=== PATIENT | female | born 1960 | race Two or more races ===

== ENCOUNTER 2020-04-09 15:25 | Outpatient (REF) | payer OTHER, SELFPAY ==
--- NOTE | ~2020-04-09 | US_ITS ---
EXAMINATION: US RETROPERITONEAL LIMITED (RENAL ONLY) CLINICAL INFORMATION: Hematuria. COMPARISON: None TECHNIQUE: Real-time imaging of the kidneys. FINDINGS: RIGHT KIDNEY: 9.4 x 4.2 x 4.3 cm (SAG x AP x TRV). The kidney is normal in size, contour, and echogenicity. Renal cortical thickness is normal. No calculi or focal parenchymal lesions. No hydronephrosis. There are multiple echogenic small foci seen without twinkle shadow. There is mild pelvic fullness. LEFT KIDNEY: 10.5 x 4.7 x 4.7 cm (SAG x AP x TRV). The kidney is normal in size, contour, and echogenicity. Renal cortical thickness is normal. No calculi or focal parenchymal lesions. No hydronephrosis. There are multiple small echogenic foci with non twinkle shadow. US/US renal BI IMPRESSION: Bilateral multiple small echogenic non twinkle shadow with mild fullness of right kidney pelvis.
--- NOTE | ~2020-04-09 | US_ITS ---
EXAMINATION: ULTRASOUND PELVIS COMPLETE CLINICAL INFORMATION: Pelvic pain. Previous history of hysterectomy and tubal ligation. COMPARISON: Pelvis 05/07/2016 TECHNIQUE: Transabdominal and transvaginal ultrasound of the pelvis is performed. FINDINGS: The uterus is not visualized due to hysterectomy. Both ovaries are not seen. There is no pelvic mass or free fluid. US/US transvaginal IMPRESSION: 1. Uterus surgically removed. 2. Ovaries not seen. 3. There is no pelvic mass or free fluid.
--- NOTE | ~2020-04-09 | US_ITS ---
EXAMINATION: ULTRASOUND PELVIS COMPLETE CLINICAL INFORMATION: Pelvic pain. Previous history of hysterectomy and tubal ligation. COMPARISON: Pelvis 05/07/2016 TECHNIQUE: Transabdominal and transvaginal ultrasound of the pelvis is performed. FINDINGS: The uterus is not visualized due to hysterectomy. Both ovaries are not seen. There is no pelvic mass or free fluid. US/US pelvic complete IMPRESSION: 1. Uterus surgically removed. 2. Ovaries not seen. 3. There is no pelvic mass or free fluid.
== END 2020-04-09 15:26 | disposition home or self-care (01) ==
LOC: HO.US 15:25
PROVIDERS: Visit Provider Registered Nurse Community Health
DX: R10.2 Pelvic and perineal pain (principal); R31.9 Hematuria, unspecified
CPT/HCPCS: 76775; 76830; 76856

== ENCOUNTER → 2020-04-18 12:41 | Outpatient (BNV) | payer OTHER, SELFPAY | PROVIDERS: PCP Internal Medicine Geriatric Medicine; Visit Provider Internal Medicine Medical Oncology | DX: D05.12 Intraductal carcinoma in situ of left breast (principal) | CPT/HCPCS: 99213; 99214 ==

== ENCOUNTER 2020-07-11 12:50 | Outpatient (REF) | payer OTHER, SELFPAY ==
--- NOTE | ~2020-07-11 | MM_ITS ---
EXAMINATION: MM SCREENING DIGITAL BREAST TOMOSYNTHESIS, BILATERAL CLINICAL INFORMATION: Screening. Asymptomatic. Last mammography 2016. Reduction mammoplasty in 2013. Pathology showed focal left ALH. Tamoxifen x 5 yrs. Family history breast cancer, maternal aunt. The lifetime risk of breast cancer based on the Tyrer-Cuzick Model is 29%. COMPARISON: Outside mammography: 11/11/2016, 11/04/2015, 11/23/2014 ([facility]). TECHNIQUE: Digital breast tomosynthesis is performed in both the craniocaudal and mediolateral oblique views along with computer-aided detection (CAD). Synthesized 2D images are generated from the tomosynthesis. FINDINGS: There are scattered areas of fibroglandular density (ACR BI-RADS breast composition Category b). There is minor scarring consistent with the reduction mammoplasty. There is no interval mass or developing density or architectural abnormality in either breast. The axilla are unremarkable. Right breast has biopsy clip marker with stable adjacent calcifications anterior 5:00 to 6:00 position. There are a few punctate benign calcifications. New grouped calcifications position breast on CC view are dermal on both CC and MLO tomography. Left breast has new loosely grouped calcifications mid inner quadrant and new benign-appearing tightly grouped calcifications mid upper outer quadrant. These are likely benign changes related to the reduction mammoplasty and will be fully evaluated with additional magnification views. MM/MM tomosynthesis screening BI IMPRESSION: 1. Left: New benign-appearing calcifications mid upper outer and mid inner quadrants, likely related to sequela from the prior reduction mammoplasty. 2. Right: No significant changes from prior outside exam. ASSESSMENT: BI-RADS 0: Incomplete - Need Additional Imaging Evaluation RECOMMENDATION: 1. Additional views of the left breast (magnification CC inner and outer, magnification ML x2). 2. Radiology department staff will contact the patient for additional imaging. 3. The lifetime risk of breast cancer based on the Tyrer-Cuzick Model is 29%. Additional annual adjunct screening with breast MRI may be of benefit in women with a risk score of 20% or greater. This patient's information was entered into a reminder system with a target due date for their next mammogram.
== END 2020-07-11 12:51 | disposition home or self-care (01) ==
LOC: HO.MAMMO 12:50
PROVIDERS: Visit Provider Internal Medicine Medical Oncology
DX: Z12.31 Encounter for screening mammogram for malignant neoplasm of breast (principal)
CPT/HCPCS: 77063; 77067

== ENCOUNTER 2020-07-23 11:58 | Outpatient (REF) | payer OTHER, SELFPAY ==
--- NOTE | ~2020-07-23 | MM_ITS ---
EXAMINATION: MM DIAGNOSTIC DIGITAL MAMMOGRAPHY, LEFT CLINICAL INFORMATION: Recall from screening for new probable benign calcifications mid upper outer and mid inner left breast. Prior history reduction mammoplasty 2013. Pathology showed focal left ALH. Had Tamoxifen for 5 views. TC Score 29%. COMPARISON: Mammography: 07/11/2020, 11/11/2016 TECHNIQUE: Digital mammography is performed in the following views: Magnification left ML, magnification left CC x2. FINDINGS: There are scattered areas of fibroglandular density (ACR BI-RADS breast composition Category b). There are grouped coarse benign appearing calcifications posterior upper outer left breast and other grouped relatively coarse calcifications central left breast. They are benign-appearing and likely sequela from remote reduction mammoplasty. Management plan is for short interval six-month follow-up mammography to include magnification views. Results are discussed with the patient at time of visit, using an live hanger. MM/MM added views LT IMPRESSION: Probable benign grouped relatively coarse calcifications central and upper outer left breast, possibly sequela from prior surgery. ASSESSMENT: BI-RADS 3: Probably Benign RECOMMENDATION: Diagnostic left mammography in 6 months. This patient's information was entered into a reminder system with a target due date for their next mammogram.
== END 2020-07-23 11:59 | disposition home or self-care (01) ==
LOC: HO.MAMMO 11:58
PROVIDERS: Visit Provider Internal Medicine Medical Oncology
DX: R92.1 Mammographic calcification found on diagnostic imaging of breast (principal)
CPT/HCPCS: 77065

== ENCOUNTER 2021-01-26 12:44 | Outpatient (REF) | payer OTHER, SELFPAY ==
--- NOTE | ~2021-01-26 | MM_ITS ---
EXAMINATION: MM DIAGNOSTIC DIGITAL BREAST TOMOSYNTHESIS, LEFT CLINICAL INFORMATION: Short interval six-month follow-up probable benign calcifications posterior upper outer and central inner left breast, likely related to remote reduction mammoplasty. History focal left ALH noted on mammoplasty specimen, 2013. Tamoxifen for 5 years. TC score 29%. COMPARISON: Mammography: 07/23/2020, 07/11/2020 (BI-RADS 0) 11/11/2016 TECHNIQUE: Digital breast tomosynthesis is performed in both the craniocaudal and mediolateral oblique views along with computer-aided detection (CAD). Synthesized 2D images are generated from the tomosynthesis. Additional views are provided: Exaggerated left CC, magnification left CC x2, magnification left ML. FINDINGS: There are scattered areas of fibroglandular density (ACR BI-RADS breast composition Category b). The calcifications for follow-up posterior upper outer quadrant are tightly grouped and coarse and benign-appearing. The other calcifications for follow-up central and inner mid left breast are also stable from prior diagnostic exam and probably benign. Calcifications are likely related to sequela from remote reduction mammoplasty. There is no developing density or interval mass or architectural abnormality. Results are provided to the patient at time of visit by the technologist. MM/MM tomosynthesis diagnostic LT IMPRESSION: Probable benign left breast calcifications posterior upper outer quadrant and central inner breast are stable from prior diagnostic exam. ASSESSMENT: BI-RADS 3: Probably Benign RECOMMENDATION: Diagnostic mammography at time of annual bilateral exam, due in 6 months. This patient's information was entered into a reminder system with a target due date for their next mammogram.
== END 2021-01-26 12:45 | disposition home or self-care (01) ==
LOC: HO.MAMMO 12:44
PROVIDERS: PCP Internal Medicine Geriatric Medicine; Visit Provider Internal Medicine Medical Oncology
DX: R92.2 Inconclusive mammogram (principal)
CPT/HCPCS: 77061; 77065

== ENCOUNTER 2021-06-05 13:41 | Outpatient (REF) | payer OTHER, SELFPAY ==
--- NOTE | ~2021-06-05 | MM_ITS ---
EXAMINATION: BONE DENSITOMETRY CLINICAL INDICATION: Osteopenia. COMPARISON: Previous BD dated 08/19/2017 and baseline BD dated 08/19/2015. TECHNIQUE: Using a [employer] DXA System (software version: 13.1) manufactured by [employer], dual-energy x-ray absorptiometry was performed of the lumbar spine and left hip. The images are of good technical quality. Summary results are attached. FINDINGS: AP SPINE L1-L4: Current: BMD 1.025 g/cm2, Z-score -0.3, T-score -1.3, osteopenia, 2.7% decrease from previous, 1.1% increase from baseline (<5% change is not significant). Prior: BMD 1.053 g/cm2. Baseline: BMD 1.014 g/cm2. LEFT FEMUR, NECK: Current: BMD 0.806 g/cm2, Z-score -0.6, T-score -1.7, osteopenia. Prior: BMD 0.858 g/cm2. Baseline: BMD 0.922 g/cm2. LEFT FEMUR, TOTAL: Current: BMD 0.898 g/cm2, Z-score -0.1, T-score -0.9, normal, 8.5% decrease from previous, 9.1% decrease from baseline (<5% change is not significant). Prior: BMD 0.981 g/cm2. Baseline: BMD 0.988 g/cm2. IDENTIFIED RISK FACTORS: Menopause, hysterectomy. HISTORY OF FRACTURE: None listed. MEDICATIONS: None listed. MM/XR DEXA axial skeleton IMPRESSION: 1. DIAGNOSIS: Osteopenia based on the lowest T-score value of -1.7 in the femoral neck applying World Health Organization criteria. 2. 10-YEAR FRACTURE RISK PREDICTION, FRAX: Major osteoporotic fracture (clinical spine, forearm, hip or shoulder) 4.4%. Hip fracture 0.4%. 3. Treatment Recommendations: NOF guidelines recommend consideration for treatment in postmenopausal women and men age 50 and older presenting with the following: -A hip or vertebral (clinical or morphometric) fracture. -T-score less than or equal to -2.5 at the femoral neck or spine after appropriate evaluation to exclude secondary causes. -Low bone mass at the hip or spine and a 10-year fracture probability by FRAX of greater than or equal to 3% for hip fracture or greater than or equal to 20% for major osteoporotic fracture based on the [place] adapted WHO algorithm. 4. Other Recommendations: All treatment decisions require clinical judgment and consideration of individual patient factors, including patient preferences, comorbidities, previous drug use, risk factors not captured in the FRAX model (e.g. frailty, falls, vitamin D deficiency, increased bone turnover, interval significant decline in bone density) and possible under or overestimation of fracture risk by FRAX. Additional medical evaluation for secondary cause of low bone mineral density may be appropriate. FUTURE SCAN RECOMMENDATION: People with diagnosed cases of osteoporosis or at high risk for fracture should have regular bone mineral density tests. For patients eligible for Medicare, routine testing is allowed once every 2 years. The testing frequency can be increased to one year for patients who have rapidly progressing disease, those who are receiving or discontinuing medical therapy to restore bone mass, or have additional risk factors.
== END 2021-06-05 13:42 | disposition home or self-care (01) ==
LOC: HO.MAMMO 13:41
PROVIDERS: Visit Provider Internal Medicine Medical Oncology
DX: Z13.820 Encounter for screening for osteoporosis (principal); M85.80 Other specified disorders of bone density and structure, unspecified site; Z78.0 Asymptomatic menopausal state
CPT/HCPCS: 77080

== ENCOUNTER 2021-06-12 14:24 | Outpatient (REF) | payer OTHER, SELFPAY ==
--- NOTE | ~2021-06-12 | XR_ITS ---
EXAMINATION: XR KNEE, RIGHT CLINICAL INFORMATION: Pain in the right knee. COMPARISON: No similar priors. TECHNIQUE: Four views of the right knee. FINDINGS: No acute fractures or malalignment. Moderate degenerative osteoarthritis of the medial and patellofemoral compartments with joint space narrowing, subcortical sclerosis and osteophytes. No chondrocalcinosis or erosions. Small joint effusion. XR/XR knee RT 2V IMPRESSION: No acute fractures or malalignment. Moderate degenerative osteoarthritis of the medial and patellofemoral compartments. Small joint effusion.
--- NOTE | ~2021-06-12 | XR_ITS ---
EXAMINATION: XR FOOT, LEFT CLINICAL INFORMATION: Pain in the left foot. COMPARISON: None. TECHNIQUE: AP, lateral, and oblique views of the left foot. FINDINGS: Chronic appearing deformity in the first metatarsal bone. No acutely displaced fractures. Joint alignment is anatomic. Mild to moderate degenerative osteoarthritis of the first MTP joint. Diffuse nonspecific soft tissue swelling. XR/XR foot LT min 3V IMPRESSION: Chronic appearing deformity in the first metatarsal bone, correlate for point tenderness and with history of trauma or surgery. Mild to moderate degenerative osteoarthritis of the first MTP joint. Nonspecific diffuse soft tissue swelling.
== END 2021-06-12 14:25 | disposition home or self-care (01) ==
LOC: HO.XRAY 14:24
PROVIDERS: PCP Internal Medicine Geriatric Medicine; Visit Provider Internal Medicine Geriatric Medicine
DX: M25.561 Pain in right knee (principal); M79.672 Pain in left foot
CPT/HCPCS: 73560; 73630

== ENCOUNTER 2021-07-07 10:19 | Outpatient (REF) | payer OTHER, SELFPAY ==
--- NOTE | ~2021-07-07 | MM_ITS ---
EXAMINATION: MM DIAGNOSTIC DIGITAL BREAST TOMOSYNTHESIS, BILATERAL CLINICAL INFORMATION: Due for yearly. Follow-up probable benign calcifications central inner and upper outer left breast, likely related to remote reduction mammoplasty. History focal left ALH noted on mammoplasty specimen, 2013. Tamoxifen for 5 years. TC score 6%. COMPARISON: Mammography: 01/26/2021, 07/23/2020, 07/11/2020 (BI-RADS 0); outside mammography 11/11/2016 ([facility]). TECHNIQUE: Digital breast tomosynthesis is performed in both the craniocaudal and mediolateral oblique views along with computer-aided detection (CAD). Synthesized 2D images are generated from the tomosynthesis. Additional magnification views left breast are obtained in the CC x2 and ML x2 views. FINDINGS: There are scattered areas of fibroglandular density (ACR BI-RADS breast composition Category b). Parenchymal pattern is similar to prior exams and there is no developing density or interval mass or architectural abnormality. Right breast has biopsy clip marker central lower breast. There are some stable benign-appearing grouped calcifications central anterior lower right breast as well as more posterior lower right breast calcifications which are dermal. Left breast calcifications for follow-up central inner and posterior upper outer quadrant are without significant change and likely related to sequela from prior remote reduction mammoplasty. Left breast calcifications will be reassessed again at next bilateral annual mammography to conclude long-term surveillance, due in 12 months. Results are provided to the patient at time of visit by the technologist. MM/MM tomosynthesis diagnostic BI IMPRESSION: -No significant changes from prior exam. -Left breast calcifications for follow-up stable, likely sequela from prior reduction mammoplasty. ASSESSMENT: BI-RADS 3: Probably Benign RECOMMENDATION: Diagnostic mammography at time of next annual exam, due in 12 months. This patient's information was entered into a reminder system with a target due date for their next mammogram.
== END 2021-07-07 10:20 | disposition home or self-care (01) ==
LOC: HO.MAMMO 10:19
PROVIDERS: Visit Provider Internal Medicine Geriatric Medicine
DX: R92.1 Mammographic calcification found on diagnostic imaging of breast (principal)
CPT/HCPCS: 77062; 77066

== ENCOUNTER 2022-03-23 12:57 | Outpatient (REF) | payer OTHER, SELFPAY ==
--- NOTE | ~2022-03-23 | XR_ITS ---
EXAMINATION: XR RIBS, LEFT CLINICAL INFORMATION: Anterior left-sided chest pain after fall COMPARISON: 12/11/1959 TECHNIQUE: 3 views of the left ribs were obtained. PA view of the chest. FINDINGS: Lungs are clear. No consolidation, pneumothorax, or pleural effusion. The cardiomediastinal silhouette and pulmonary vasculature are normal. Right upper quadrant surgical clips. Osseous structures are unremarkable. Ribs are intact. No fractures are identified. XR/XR ribs LT min 3V w CXR1V IMPRESSION: Clear lungs. No focal rib abnormality identified.
== END 2022-03-23 12:58 | disposition home or self-care (01) ==
LOC: HO.XRAY 12:57
PROVIDERS: PCP Internal Medicine Geriatric Medicine; Visit Provider Internal Medicine Geriatric Medicine
DX: R07.89 Other chest pain (principal)
CPT/HCPCS: 71101

== ENCOUNTER 2022-05-19 16:37 | Outpatient (REF) | payer OTHER, SELFPAY ==
--- NOTE | ~2022-05-19 | XR_ITS ---
EXAMINATION: XR CHEST CLINICAL INFORMATION: Cough. COMPARISON: Chest radiographs, most recently 03/23/2022. TECHNIQUE: Frontal and lateral views of the chest were obtained. FINDINGS: The heart, great vessels, pulmonary vasculature and mediastinum are normal. The lungs show no focal infiltrate, effusion or pneumothorax. There is mild elevation of the right hemidiaphragm. There is no acute osseous abnormality. Upper abdominal surgical clips are noted. XR/XR chest 2V IMPRESSION: No active cardiopulmonary disease.
== END 2022-05-19 16:38 | disposition home or self-care (01) ==
LOC: HO.XRAY 16:37
PROVIDERS: Absent Provider Internal Medicine Geriatric Medicine; PCP Internal Medicine Geriatric Medicine; Visit Provider Emergency Medicine
DX: J45.21 Mild intermittent asthma with (acute) exacerbation (principal)
CPT/HCPCS: 71046

== ENCOUNTER 2022-06-11 13:15 | Outpatient (REF) | payer OTHER, SELFPAY ==
--- NOTE | ~2022-06-11 | US_ITS ---
EXAMINATION: US VENOUS ULTRASOUND WITH DOPPLER LOWER EXTREMITY, RIGHT CLINICAL INFORMATION: Right lower extremity pain and swelling COMPARISON: None available. TECHNIQUE: Ultrasound of the deep veins is performed from the hip to the calf with compression sonography and color and pulse Doppler assessment. Spectral analysis with color-flow imaging is performed. FINDINGS: There is normal venous compression and respiratory variation and augmented flow. The visualized common femoral vein, superficial femoral vein, profunda femoral vein, popliteal vein, and the trifurcation region shows no evidence of deep venous thrombosis. There is a small 1.9 x 0.7 x 1.4 cm popliteal fossa hypoechoic region consistent with small up to fossa cyst. US/US venous duplex LE RT IMPRESSION: No acute DVT demonstrated in the right lower extremity. Small popliteal fossa cyst.
== END 2022-06-11 13:16 | disposition home or self-care (01) ==
LOC: HO.US 13:15
PROVIDERS: PCP Internal Medicine Geriatric Medicine; Visit Provider Emergency Medicine
DX: M79.604 Pain in right leg (principal); M79.89 Other specified soft tissue disorders
CPT/HCPCS: 93971

== ENCOUNTER 2022-06-25 11:49 | Outpatient (REF) | payer OTHER, SELFPAY ==
--- NOTE | ~2022-06-25 | MM_ITS ---
EXAMINATION: MM DIAGNOSTIC DIGITAL BREAST TOMOSYNTHESIS, BILATERAL US TARGETED BREAST, LEFT CLINICAL INFORMATION: Status post breast reduction surgery. Follow up calcifications. Lump 6 o'clock position left breast after falling on breast. The lifetime risk of breast cancer based on the Tyrer-Cuzick Model is 6.8%. COMPARISON: Mammography: 07/07/2021 and studies dating back to 11/23/2014. TECHNIQUE: Digital breast tomosynthesis is performed in both the craniocaudal and mediolateral oblique views along with computer-aided detection (CAD). Synthesized 2D images are generated from the tomosynthesis. Additional spot magnification views of the left breast in craniocaudal and 90-degree mediolateral views performed. Targeted left breast ultrasound. FINDINGS: There are scattered areas of fibroglandular density (ACR BI-RADS breast composition Category b). There are no new significant masses, abnormal calcifications, or other abnormalities. There is stability of bilateral calcifications. Targeted left breast ultrasound to region of patient's pain/palpable area did not demonstrate any abnormal cystic or solid masses. No region of abnormal distal sound shadowing was appreciated. Results are discussed with the patient at time of visit. MM/MM tomosynthesis diagnostic BI IMPRESSION: No mammographic or ultrasound evidence of malignancy. ASSESSMENT: BI-RADS 1: Negative RECOMMENDATION: 1. Patient should be managed based on the clinical impression. Decision to proceed with biopsy should be based on clinical grounds and degree of clinical concern. 2. Otherwise, routine annual screening mammography. This patient's information was entered into a reminder system with a target due date for their next mammogram.
== END 2022-06-25 11:50 | disposition home or self-care (01) ==
LOC: HO.MAMMO 11:49
PROVIDERS: Visit Provider Internal Medicine Geriatric Medicine
DX: N63.25 Unspecified lump in the left breast, overlapping quadrants (principal)
CPT/HCPCS: 76642; 77062; 77066

== ENCOUNTER → 2022-07-13 09:52 | Outpatient (BNVA) | payer OTHER, SELFPAY | PROVIDERS: PCP Internal Medicine Geriatric Medicine; Referring Provider Internal Medicine Medical Oncology; Visit Provider Surgery | DX: N60.99 Unspecified benign mammary dysplasia of unspecified breast (principal); N63.20 Unspecified lump in the left breast, unspecified quadrant | CPT/HCPCS: 99202 ==

== ENCOUNTER → 2022-07-20 08:26 | Outpatient (BNVA) | payer OTHER, SELFPAY | PROVIDERS: PCP Internal Medicine Geriatric Medicine; Visit Provider Advanced Practice Midwife | DX: Z01.419 Encounter for gynecological examination (general) (routine) without abnormal findings (principal); R35.0 Frequency of micturition; N95.9 Unspecified menopausal and perimenopausal disorder; E11.9 Type 2 diabetes mellitus without complications | CPT/HCPCS: 81003 ==

== ENCOUNTER → 2022-07-28 09:46 | Outpatient (BNVA) | payer OTHER, SELFPAY | PROVIDERS: PCP Internal Medicine Geriatric Medicine; Visit Provider Surgery Vascular Surgery | DX: I83.12 Varicose veins of left lower extremity with inflammation (principal) | CPT/HCPCS: 99202 ==

== ENCOUNTER 2022-12-30 10:38 | Outpatient (AMB) | payer OTHER, SELFPAY ==
--- NOTE | 2022-12-30 10:43 | MHC.OFFVIS ---
Intake Intake Visit Reasons: 3 month vein check Intake Note: PT her for 3 month vein check she states she had surgery on her ankle on 09/22/22 and now shes ready to get workup for VV. She says she still gets pain and swelling in both LE especially after walking or been on her feet Assessment Technician Required: Yes Assessment Technician Name: demetrius jacobs Information Interpreted: clinical only Allergies tuberculin, purified protein deriva [TB TEST] Allergy (Severe, Verified 12/30/22 10:45) ANGIOEDEMA liquid of tb test Allergy (Severe, Uncoded 07/28/22 09:58) Rash HPI 3 month vein check HPI Details Very complex 62-year-old female presents for follow-up regarding swelling and painful varicosities. She notes that it is more so on the left leg. She has undergone left foot podiatric intervention at [facility]. It appears that she has hardware placed there as well. It has been a source of persistent swelling and discomfort for her. She now presents for follow-up regarding her varicosities. PFSH Medical History Frequency of urination Hernia Depression Anxiety Heart disease Diabetes Asthma Fibromyalgia Atypical lobular hyperplasia (ALH) of breast Surgical History Hx of cardiac cath H/O rectal polypectomy History of carpal tunnel surgery Hx of toe surgery Hx of right knee surgery Hx of tonsillectomy History of appendectomy Hx of cholecystectomy H/O: hysterectomy Hx of section Family History Brother Heart disease Asthma Mother Family history of esophageal cancer Hypertension Asthma Lung cancer Father History of prostate cancer Asthma Paternal Aunt No problems noted. Paternal Grandfather Liver cancer Colon cancer Family/Other Stomach cancer Maternal Aunt Breast cancer Social History Household Members: None Housing: Apartment Are you a primary body care manager to a significant other at home: No Do you presently have visiting nurse or other home services: No Alcohol intake: former Patient Tobacco Use Status: Never used Tobacco service: No Current occupational status: disabled Female Reproductive History Menstrual Age of Menarche: 15 Review of Systems Const Reports as per HPI ENT Reports no additional complaints Card Denies chest pain, Denies chest pain at rest and Denies chest pain with activity Resp Denies chest congestion and Denies cough GI Reports no additional complaints Musc Details: pain over varicosities, aching of lower extremities, swelling, cramping, heaviness and tiredness, itching Denies abnormal gait Skin/Breast Reports pruritus and Denies wounds Neuro Reports no additional complaints and Denies abnormal gait Psych Denies no additional complaints Physical Exam Const General: cooperative, healthy appearing and comfortable Orientation/consciousness: oriented to person, oriented to place and oriented to time Neck Carotids: no bruits Chest Chest palpation & inspection: normal inspection of the chest and normal palpation of entire chest wall Resp Effort & Inspection: normal respiratory effort and able to speak in complete sentences Cardio Rate: regular rate Heart sounds: S1 normal heart sound present and S2 normal heart sound present Peripheral pulses: Peripheral pulses 2+ throughout GI Inspection: Yes normal to inspection Skin Other: +2 edema, General skin exam: dry skin Neuro General: oriented to person, oriented to place and oriented to time Extrem General: Yes edema Right lower extremity: full ROM, normal capillary refill and edema Left lower extremity: full ROM, normal capillary refill and edema Psych Mental Status: mental status grossly normal Assessment & Plan Assessment & Plan (1) Varicose veins of left lower extremity with inflammation: Code(s): I83.12 - Varicose veins of left lower extremity with inflammation Plan: In short patient has persistent swelling of the left lower extremity. I do believe a lot of this has to do with her left ankle and postoperative discomfort. At the current time I would like to have her manage this as conservatively as possible and would like her foot to heal before we even consider any venous intervention. She is already quite immobile and performing of venous intervention may put her at a higher risk for DVT. She will follow up with us in approximately 6 months time. At that time she will have completed her physical therapy as well. We did discuss continued conservative measures including compression elevation and exercise. Thank you for allowing us to assist in her care. If there are any questions or concerns please do not hesitate to contact us. Coding Level of Care Code Est Pt Level 4 (40914) Diagnoses Varicose veins of left lower extremity with inflammation I83.12
== END 2022-12-30 11:18 | disposition home or self-care (01) ==
PROVIDERS: Visit Provider Surgery Vascular Surgery
DX: I83.12 Varicose veins of left lower extremity with inflammation (principal)
CPT/HCPCS: 99214

== ENCOUNTER → 2022-12-30 10:38 | Outpatient (BNVA) | payer OTHER, SELFPAY | PROVIDERS: Visit Provider Surgery Vascular Surgery | DX: I83.12 Varicose veins of left lower extremity with inflammation (principal) | CPT/HCPCS: 99212 ==

== ENCOUNTER 2023-02-08 08:53 | Outpatient (AMB) | payer OTHER, SELFPAY ==
--- NOTE | 2023-02-08 09:24 | MHC.OFFVIS ---
Intake Vital Signs 02/08/23 09:38 Height 5 ft Weight 153 lb 2 oz BMI 29.9 BP 131/80 Blood Pressure Location Lt brachial Position Sitting Pulse 68 Intake Visit Reasons: six month follow-up breast exam Intake Note: Patient is seen in office for 6 month follow up visit, breast exam. Patient c/o: denies any concerns regarding the breast Environmental Compliance Technician Required: Yes Environmental Compliance Technician Language: Software Support Representative Name: Viky JAUREGUI Information Interpreted: non-clinical & clinical Mammography Technician: Mammography Technician Present Accompanied by: Self / Same As Patient Allergies tuberculin, purified protein deriva [TB TEST] Allergy (Severe, Verified 02/08/23 09:25) ANGIOEDEMA liquid of tb test Allergy (Severe, Uncoded 02/08/23 09:25) Rash Medication List - Last Reconciled 02/08/23 by Shabbir Hill MD albuterol sulfate 90 mcg/actuation 2 puffs PO Q4-6H PRN amlodipine 5 mg PO DAILY aspirin 81 mg PO DAILY atorvastatin 1 tab PO DAILY diclofenac sodium 1% 1 ea topical DAILY dulaglutide (Trulicity) 0.75 mg subcut QWEEK duloxetine 30 mg PO DAILY fluticasone propionate 50 mcg/actuation 2 sprays intranasal DAILY fluticasone propionate 220 mcg/actuation (Flovent HFA) 2 puffs inhalation BID gabapentin 100 mg PO TID hydroxyzine pamoate 1 cap PO BID ketoconazole 2% 1 appl topical DAILY lamotrigine 25 mg PO DAILY lamotrigine ER 25 mg PO DAILY levothyroxine 1 tab PO DAILY levothyroxine 88 mcg PO DAILY loratadine 1 tab PO DAILY metformin 1 tab PO QAM metoprolol tartrate 1 tab PO BID montelukast (Singulair) 1 tab PO BEDTIME omega 7-ltk-uxx-fish oil 300-1,000 mg 1 cap PO DAILY omeprazole 1 cap PO DAILY trazodone 50 mg PO BEDTIME zaleplon 10 mg PO BEDTIME PRN HPI HPI Comments History of Present Illness Details 62-year-old female patient with a prior history of atypical lobular hyperplasia presenting for evaluation of a possible left breast mass. She reports undergoing bilateral breast reduction in 2012 complicated by an open wound on the right side soon after surgery. After the surgery she was diagnosed with atypical lobular hyperplasia and subsequently started on tamoxifen for 5 years. She notes pain in the bilateral breasts waxes and wanes in severity. Her most recent mammogram performed on 06/25/2022 revealed no mammographic or ultrasound evidence of malignancy (BI-RADS 1). Her calculated Tyrer-Cuzick remaining lifetime risk of breast cancer was calculated at 6.8%. Her family history is significant for a maternal aunt with breast cancer. PFSH Medical History Frequency of urination Hernia Depression Anxiety Heart disease Diabetes Asthma Fibromyalgia Atypical lobular hyperplasia (ALH) of breast Surgical History Hx of cardiac cath H/O rectal polypectomy History of carpal tunnel surgery Hx of toe surgery Hx of right knee surgery Hx of tonsillectomy History of appendectomy Hx of cholecystectomy H/O: hysterectomy Hx of section Family History Brother Heart disease Asthma Mother Family history of esophageal cancer Hypertension Asthma Lung cancer Father History of prostate cancer Asthma Paternal Aunt No problems noted. Paternal Grandfather Liver cancer Colon cancer Family/Other Stomach cancer Maternal Aunt Breast cancer Social History Household Members: None Housing: Apartment Are you a primary rn homecare to a significant other at home: No Do you presently have visiting nurse or other home services: No Alcohol intake: former Patient Tobacco Use Status: Never used Tobacco service: No Current occupational status: disabled Female Reproductive History Menstrual Age of Menarche: 15 Review of Systems Const All systems reviewed & are unremarkable except as noted in HPI and below Denies chills, Denies fever(s), Denies headache(s), Denies poor appetite and Denies weakness ENT Denies headache(s) Card Denies chest pain, Denies irregular heart rhythm, Denies palpitations and Denies dyspnea Resp Denies cough, Denies excessive phlegm production and Denies dyspnea GI Denies abdominal pain, Denies bloating, Denies change in bowel habits, Denies constipation, Denies heartburn, Denies diarrhea, Denies nausea and Denies vomiting Denies urinary frequency and Denies nipple discharge Musc Denies back pain, Denies muscle weakness and Denies numbness Skin/Breast Reports breast swelling, Reports breast pain, Reports breast mass, Denies changing lesions, Denies nipple discharge, Denies erythema and Denies unusual bruising Neuro Denies headache(s), Denies numbness, Denies paresthesias and Denies weakness Psych Denies anxiety and Denies depression Endo Denies palpitations Buster/Lymph Denies lymphadenopathy Physical Exam Vital Signs: Last Vital Signs Pulse 68 02/08/23 09:38 BP 131/80 02/08/23 09:38 BMI result Body Mass Index 29.9 Const General: cooperative and no acute distress Nutritional Appearance: well nourished Orientation/consciousness: patient oriented x3 Limitations: no limitations HEENT Head: Yes normocephalic and Yes atraumatic Ears: hearing grossly normal bilaterally Chest Other: Bilateral breast reduction incisions noted, wounds are clean, dry and intact. Left breast: No skin change, no nipple retraction, no nipple discharge, no palpable mass, no enlarged lymph nodes. No definite palpable mass noted in the 6 o'clock position. There is tenderness to palpation of the chest wall suggestive of a chest wall contusion however no discrete masses appreciated. Right breast: No skin change, no nipple retraction, no nipple discharge, no palpable mass, no enlarged lymph nodes Resp Effort & Inspection: normal respiratory effort, no audible wheezes, no cough and no respiratory distress Cardio Jugular venous distension: no JVD GI Inspection: Yes normal to inspection Skin Other: Warm, dry, no rash Neuro General: patient oriented x3 Extrem General: Yes no clubbing, cyanosis or edema Assessment & Plan Assessment & Plan (1) Atypical lobular hyperplasia (ALH) of breast: Code(s): N60.99 - Unspecified benign mammary dysplasia of unspecified breast Plan 62-year-old female patient with a prior history of atypical lobular hyperplasia and prior history of bilateral breast reduction returning for high risk breast examination. She feels well and denies any ongoing breast symptoms other than pain bilaterally. Examination today reveals no suspicious findings in either breast and well-healed reduction incisions. She will be due for mammogram in June 2023 and should follow up in 6 months for routine breast examination for her atypical lobular hyperplasia. She is welcome to call sooner for any new concerns. Coding Level of Care Code Est Pt Level 3 (36316) Diagnoses Atypical lobular hyperplasia (ALH) of breast N60.99
[2023-02-08 09:38] VITALS: BP 131/80; PULSE 68; BMI 29.9
== END 2023-02-08 09:55 | disposition home or self-care (01) ==
PROVIDERS: PCP Internal Medicine Geriatric Medicine; Visit Provider Surgery
DX: N60.92 Unspecified benign mammary dysplasia of left breast (principal)
CPT/HCPCS: 99213

== ENCOUNTER → 2023-02-08 08:53 | Outpatient (BNVA) | payer OTHER, SELFPAY | PROVIDERS: PCP Internal Medicine Geriatric Medicine; Visit Provider Surgery | DX: N60.99 Unspecified benign mammary dysplasia of unspecified breast (principal) | CPT/HCPCS: 99212 ==

== ENCOUNTER 2023-03-23 12:56 | Outpatient (REF) | payer OTHER, SELFPAY ==
--- NOTE | ~2023-03-23 | XR_ITS ---
EXAMINATION: XR CHEST CLINICAL INFORMATION: Cough and fever for 4 days COMPARISON: None available. TECHNIQUE: 2 views of the chest were obtained. FINDINGS: vascularity. LUNGS: Lungs are clear. No pneumothorax is seen. BONES: Bony skeleton is intact. XR/XR chest 2V IMPRESSION: Normal chest x-ray.
== END 2023-03-23 12:57 | disposition home or self-care (01) ==
LOC: HO.HHCX 12:56
PROVIDERS: Visit Provider Emergency Medicine
DX: R05.9 Cough, unspecified (principal)
CPT/HCPCS: 71046

== ENCOUNTER 2023-06-07 11:32 | Outpatient (REF) | payer OTHER, SELFPAY ==
[2023-06-07 13:50] LABS: Estimated Average Glucose 134 mg/dL; Hemoglobin A1c % 6.3 % (<6.0)
[2023-06-07 14:05] LABS: Alanine Aminotransferase 32 U/L (0-31); Albumin Level 4.1 g/dL (3.5-5.0); Alkaline Phosphatase 104 U/L (39-117); Anion Gap 13 (12-20); Aspartate Amino Transferase 31 U/L (5-31); Bilirubin Total 0.4 mg/dL (0.0-1.0); Blood Urea Nitrogen 13 mg/dL (9-16); C Reactive Protein 0.12 mg/dL (< or = 0.50); Calcium 9.8 mg/dL (8.4-10.2); Carbon Dioxide 27 mmol/L (22-29); Chloride 108 mmol/L (96-108); Cholesterol 225 mg/dL (<200); Estimated Glomerular Filt Rate > 60; Glucose Random 153 mg/dL (60-115); HDL Cholesterol 59 mg/dL (>40); LDL Cholesterol Calculated 141 mg/dL (<100); Sodium 144 mmol/L (135-145); Total Protein 7.2 g/dL (6.5-8.0); Triglycerides 125 mg/dL (<150)
[2023-06-07 14:09] LABS: TSH reflex Free T4 0.01 uIU/mL (0.32-4.0)
[2023-06-07 14:20] LABS: Erythrocyte Sedimentation Rate 6 MM/HR (0-20)
[2023-06-07 15:23] LABS: Free T4 (Free Thyroxine) 1.28 ng/dL (0.71-1.85)
== END 2023-06-07 11:33 | disposition home or self-care (01) ==
LOC: HO.HHCL 11:32
PROVIDERS: Visit Provider Nurse Practitioner Family
DX: E11.9 Type 2 diabetes mellitus without complications (principal); E03.9 Hypothyroidism, unspecified; M54.50 Low back pain, unspecified; K62.5 Hemorrhage of anus and rectum
CPT/HCPCS: 36415; 80053; 80061; 83036; 84439; 84443; 85652; 86140

== ENCOUNTER 2023-06-28 11:54 | Outpatient (REF) | payer OTHER, SELFPAY ==
[2023-06-28 17:03] LABS: TSH reflex Free T4 0.23 uIU/mL (0.32-4.0)
[2023-06-28 19:21] LABS: Free T4 (Free Thyroxine) 0.96 ng/dL (0.71-1.85)
== END 2023-06-28 11:55 | disposition home or self-care (01) ==
LOC: HO.HHCL 11:54
PROVIDERS: Visit Provider Nurse Practitioner Family
DX: K62.5 Hemorrhage of anus and rectum (principal)
CPT/HCPCS: 36415; 84439; 84443

== ENCOUNTER 2023-06-30 12:33 | Outpatient (AMB) | payer OTHER, SELFPAY ==
--- NOTE | 2023-06-30 12:55 | A.OFFVIS_ITS ---
Vital Signs 06/30/23 12:58 Height 5 ft Weight 150 lb BMI 29.3 Intake Visit Reasons: 6 month vein check Intake Note: 6 mo vein check for VV w/ swelling s/p ankle surgery at [facility] 09/22/22, pt is walking much better but has some small VV on both legs Accompanied by: Self / Same As Patient Allergies tuberculin, purified protein deriva [TB TEST] Allergy (Severe, Verified 06/30/23 13:02) ANGIOEDEMA liquid of tb test Allergy (Severe, Uncoded 06/30/23 13:02) Rash HPI HPI 6 month vein check: Details: Very pleasant 63-year-old female presents for follow-up regarding lower extremity swelling she appears to be doing significantly better as she has had left foot surgery by Podiatry. She appears to have only occasional mild swelling. At the current time it is not a source of pain or discomfort for her. PFSH Medical History Frequency of urination Hernia Depression Anxiety Heart disease Diabetes Asthma Fibromyalgia Atypical lobular hyperplasia (ALH) of breast Surgical History Hx of cardiac cath H/O rectal polypectomy History of carpal tunnel surgery Hx of toe surgery Hx of right knee surgery Hx of tonsillectomy History of appendectomy Hx of cholecystectomy H/O: hysterectomy Hx of section Family History Brother Heart disease Asthma Mother Family history of esophageal cancer Hypertension Asthma Lung cancer Father History of prostate cancer Asthma Paternal Aunt No problems noted. Paternal Grandfather Liver cancer Colon cancer Family/Other Stomach cancer Maternal Aunt Breast cancer Social History Household Members: None Housing: Apartment Are you a primary critical care paramedic to a significant other at home: No Do you presently have visiting nurse or other home services: No Alcohol intake: former Patient Tobacco Use Status: Never used Tobacco service: No Current occupational status: disabled Female Reproductive History Menstrual Age of Menarche: 15 Review of Systems Const All systems reviewed & are unremarkable except as noted in HPI and below Reports no additional complaints ENT Reports Normal hearing present Card Denies chest pain, Denies chest pain at rest, Denies chest pain with activity and Denies pedal edema Resp Denies cough GI Denies abdominal pain Musc Denies abnormal gait, Denies muscle cramps and Denies radiating pain into limb Skin/Breast Denies skin ulcer and Denies wounds Neuro Reports Normal hearing present and Denies abnormal gait Psych Reports no additional complaints Physical Exam Vital Signs: BMI result Body Mass Index 29.3 Const General: cooperative, healthy appearing and comfortable Orientation/consciousness: oriented to person, oriented to place and oriented to time HEENT Head: Yes normal to inspection Neck Neck: Yes normal visual inspection Carotids: no bruits Chest Chest palpation & inspection: normal inspection of the chest Resp Effort & Inspection: normal respiratory effort and able to speak in complete sentences Auscultation: clear to auscultation bilaterally, no crackles, no rales, no rhonchi and no wheezes Cardio Rate: regular rate Rhythm: regular rhythm Heart sounds: S1 normal heart sound present and S2 normal heart sound present Bruits: no carotid bruits Peripheral pulses: Peripheral pulses 2+ throughout GI Inspection: Yes normal to inspection Skin Wounds: no wounds Hair: normal Neuro General: oriented to person, oriented to place and oriented to time Cranial nerves: Yes CN's II-XII intact bilaterally and Yes Normal hearing present Cognition (Neuro): normal cognition Motor exam (neuro): 5/5 motor strength present throughout Extrem Other: venous exam: +1 edema General: No clubbing, No cyanosis and No edema Psych Appearance: grossly normal Mental Status: mental status grossly normal Speech and movement: Normal speech and movement present Assessment & Plan Assessment & Plan (1) Varicose veins of left lower extremity with inflammation: Code(s): I83.12 - Varicose veins of left lower extremity with inflammation Category: Medical Plan: In short it appears that her swelling has significantly improved since her podiatric surgery. At the current time would only manage this conservatively with compression elevation and exercise. The patient is agreeable. Should it worsen or become an issue for her in the future would be happy to see her back at that time. We can schedule her in the future for venous insufficiency testing if she becomes symptomatic. Thank you for allowing us to assist in her care. If there are any questions or concerns please do not hesitate to contact us. Coding Level of Care Code Est Pt Level 3 (11373) Diagnoses Varicose veins of left lower extremity with inflammation I83.12
[2023-06-30 12:58] VITALS: BMI 29.3
== END 2023-06-30 13:30 | disposition home or self-care (01) ==
PROVIDERS: PCP Internal Medicine Geriatric Medicine; Visit Provider Surgery Vascular Surgery
DX: I83.12 Varicose veins of left lower extremity with inflammation (principal)
CPT/HCPCS: 99213

== ENCOUNTER → 2023-06-30 12:33 | Outpatient (BNVA) | payer OTHER, SELFPAY | PROVIDERS: PCP Internal Medicine Geriatric Medicine; Visit Provider Surgery Vascular Surgery | DX: I83.12 Varicose veins of left lower extremity with inflammation (principal) | CPT/HCPCS: 99212 ==

== ENCOUNTER 2023-07-05 13:27 | Outpatient (REF) | payer OTHER, SELFPAY ==
--- NOTE | ~2023-07-05 | MM_ITS ---
EXAMINATION: MM SCREENING DIGITAL BREAST TOMOSYNTHESIS, BILATERAL CLINICAL INFORMATION: Screening. Asymptomatic. The patient is status post bilateral breast reduction. COMPARISON: Mammography: This study is compared with prior exams dating back to 2017. TECHNIQUE: Digital breast tomosynthesis is performed in both the craniocaudal and mediolateral oblique views along with computer-aided detection (CAD). Synthesized 2D images are generated from the tomosynthesis. FINDINGS: There are scattered areas of fibroglandular density (ACR BI-RADS breast composition Category b). There are no significant masses, abnormal calcifications, or other abnormalities. There is a tissue marker present in the right breast from prior benign percutaneous biopsy. There are few, bilateral benign calcifications. Post reduction changes are present in each breast. MM/MM tomosynthesis screening BI IMPRESSION: No mammographic evidence of malignancy. ASSESSMENT: BI-RADS BI-RADS 2 - Benign Findings RECOMMENDATION: Routine annual mammography screening. 1 year F/U This examination should not preclude the clinical evaluation of a suspicious palpable abnormality. This patient's information was entered into a reminder system with a target due date for their next mammogram.
--- NOTE | ~2023-07-05 | MM_ITS ---
EXAMINATION: BONE DENSITOMETRY CLINICAL INDICATION: Other specified disorders of bone density and structure. COMPARISON: Previous BD dated 06/05/2021 and baseline BD dated 08/19/2015. TECHNIQUE: Using a [employer] DXA System (software version: 13.1) manufactured by [employer], dual-energy x-ray absorptiometry was performed of the lumbar spine and left hip. The images are of good technical quality. Summary results are attached. FINDINGS: LEFT FEMUR, NECK: Current: BMD 0.760 g/cm2, Z-score -0.7, T-score -2.0, osteopenia. Prior: BMD 0.806 g/cm2. Baseline: BMD 0.922 g/cm2. LEFT FEMUR, TOTAL: Current: BMD 0.833 g/cm2, Z-score -0.4, T-score -1.4, osteopenia, 7.2% decrease from previous, 15.7% decrease from baseline (<5% change is not significant). Prior: BMD 0.898 g/cm2. Baseline: BMD 0.988 g/cm2. AP SPINE L1-L4: Current: BMD 0.996 g/cm2, Z-score -0.2, T-score -1.5, osteopenia, 2.8% decrease from previous, 1.8% decrease from baseline (<5% change is not significant). Prior: BMD 1.025 g/cm2. Baseline: BMD 1.014 g/cm2. IDENTIFIED RISK FACTORS: Menopause, hysterectomy. HISTORY OF FRACTURE: None listed. MEDICATIONS: None listed. MM/XR DEXA axial skeleton IMPRESSION: 1. DIAGNOSIS: Osteopenia based on the lowest T-score value of -2.0 in the femoral neck applying World Health Organization criteria. 2. 10-YEAR FRACTURE RISK PREDICTION, FRAX: Major osteoporotic fracture (clinical spine, forearm, hip or shoulder) 5.4%. Hip fracture 0.7%. 3. Treatment Recommendations: NOF guidelines recommend consideration for treatment in postmenopausal women and men age 50 and older presenting with the following: -A hip or vertebral (clinical or morphometric) fracture. -T-score less than or equal to -2.5 at the femoral neck or spine after appropriate evaluation to exclude secondary causes. -Low bone mass at the hip or spine and a 10-year fracture probability by FRAX of greater than or equal to 3% for hip fracture or greater than or equal to 20% for major osteoporotic fracture based on the [place] adapted WHO algorithm. 4. Other Recommendations: All treatment decisions require clinical judgment and consideration of individual patient factors, including patient preferences, comorbidities, previous drug use, risk factors not captured in the FRAX model (e.g. frailty, falls, vitamin D deficiency, increased bone turnover, interval significant decline in bone density) and possible under or overestimation of fracture risk by FRAX. Additional medical evaluation for secondary cause of low bone mineral density may be appropriate. FUTURE SCAN RECOMMENDATION: People with diagnosed cases of osteoporosis or at high risk for fracture should have regular bone mineral density tests. For patients eligible for Medicare, routine testing is allowed once every 2 years. The testing frequency can be increased to one year for patients who have rapidly progressing disease, those who are receiving or discontinuing medical therapy to restore bone mass, or have additional risk factors.
== END 2023-07-05 13:28 | disposition home or self-care (01) ==
LOC: HO.MAMMO 13:27
PROVIDERS: PCP Internal Medicine Geriatric Medicine; Visit Provider Internal Medicine Medical Oncology
DX: Z12.31 Encounter for screening mammogram for malignant neoplasm of breast (principal); Z13.820 Encounter for screening for osteoporosis; M85.80 Other specified disorders of bone density and structure, unspecified site; Z78.0 Asymptomatic menopausal state
CPT/HCPCS: 77063; 77067; 77080

== ENCOUNTER → 2023-07-05 14:30 | Outpatient (BNV) | payer OTHER, SELFPAY | PROVIDERS: PCP Internal Medicine Geriatric Medicine; Visit Provider Radiology Diagnostic Radiology | DX: Z12.31 Encounter for screening mammogram for malignant neoplasm of breast (principal) | CPT/HCPCS: 77063; 77067 ==

== ENCOUNTER 2023-08-05 12:26 | Outpatient (REF) | payer OTHER, SELFPAY ==
--- NOTE | ~2023-08-05 | XR_ITS ---
EXAMINATION: XR KNEE, RIGHT CLINICAL INFORMATION: Unilateral primary osteoarthritis right knee. COMPARISON: 06/12/2021 TECHNIQUE: AP standing view of bilateral knees as well as lateral and sunrise view of the right knee. FINDINGS: Right Knee: [id number] narrowing of the medial compartment. Tiny tricompartmental osteophytes. No significant joint effusion. AP standing view of the left knee demonstrates mild narrowing of the medial compartment. XR/XR knee RT 3V IMPRESSION: [id number] degenerative changes right knee.
== END 2023-08-05 12:27 | disposition home or self-care (01) ==
LOC: HO.HOSX 12:26
PROVIDERS: Visit Provider Physician Assistant
DX: M17.11 Unilateral primary osteoarthritis, right knee (principal)
CPT/HCPCS: 73562; 99202

== ENCOUNTER 2023-08-05 13:54 | Outpatient (AMB) | payer OTHER, SELFPAY ==
--- NOTE | 2023-08-05 13:56 | MHC.OFFVIS ---
Intake Visit Reasons: N/P right knee O/A pain replacement consult Intake Note: Pippa a 63 year old female who presents today as a new patient for an evaluation of right knee pain. Patient reports she has been having right knee pain for years. She states she had a meniscus operation in [place] more than 15 years ago. She states she had previous gel injections in both knees with no relief. She states the pain has gotten worse also when she sleeps. Biztalk Architect Name: [id number] ([id number]) Allergies tuberculin, purified protein deriva [TB TEST] Allergy (Severe, Verified 08/05/23 13:57) ANGIOEDEMA liquid of tb test Allergy (Severe, Uncoded 08/05/23 13:57) Rash Medication List - Last Reconciled 08/05/23 by Uriel Ordoñez PA-C albuterol sulfate 90 mcg/actuation 2 puffs PO Q4-6H PRN amlodipine 5 mg PO DAILY aspirin 81 mg PO DAILY atorvastatin 1 tab PO DAILY diclofenac sodium 1% 1 ea topical DAILY dulaglutide (Trulicity) 0.75 mg subcut QWEEK duloxetine 30 mg PO DAILY fluticasone propionate 50 mcg/actuation 2 sprays intranasal DAILY fluticasone propionate 220 mcg/actuation (Flovent HFA) 2 puffs inhalation BID gabapentin 100 mg PO TID hydroxyzine pamoate 1 cap PO BID ketoconazole 2% 1 appl topical DAILY lamotrigine 25 mg PO DAILY lamotrigine ER 25 mg PO DAILY levothyroxine 1 tab PO DAILY levothyroxine 88 mcg PO DAILY loratadine 1 tab PO DAILY metformin 1 tab PO QAM metoprolol tartrate 1 tab PO BID montelukast (Singulair) 1 tab PO BEDTIME omega 2-txj-sws-fish oil 300-1,000 mg 1 cap PO DAILY omeprazole 1 cap PO DAILY trazodone 50 mg PO BEDTIME zaleplon 10 mg PO BEDTIME PRN HPI HPI N/P right knee O/A pain replacement consult: Details: 63-year-old female who presents to the office today for an evaluation of right knee pain for more than 15 years. She has a history of meniscus surgery about 15 years ago in [place]. She had also tried gel injections in the past without benefits. She currently states she has worsening pain in her knee that is aggravated with stair use and at night. [facility] Medical History Frequency of urination Hernia Depression Anxiety Heart disease Diabetes Asthma Fibromyalgia Atypical lobular hyperplasia (ALH) of breast Surgical History Hx of cardiac cath H/O rectal polypectomy History of carpal tunnel surgery Hx of toe surgery Hx of right knee surgery Hx of tonsillectomy History of appendectomy Hx of cholecystectomy H/O: hysterectomy Hx of section Family History Brother Heart disease Asthma Mother Family history of esophageal cancer Hypertension Asthma Lung cancer Father History of prostate cancer Asthma Paternal Aunt No problems noted. Paternal Grandfather Liver cancer Colon cancer Family/Other Stomach cancer Maternal Aunt Breast cancer Social History Household Members: None Housing: Apartment Are you a primary progressive care manager to a significant other at home: No Do you presently have visiting nurse or other home services: No Alcohol intake: former Patient Tobacco Use Status: Never used Tobacco service: No Current occupational status: disabled Female Reproductive History Menstrual Age of Menarche: 15 Review of Systems Const All systems reviewed & are unremarkable except as noted in HPI and below Physical Exam Const General: cooperative, healthy appearing, comfortable, no acute distress, well developed and alert Orientation/consciousness: patient oriented x3 HEENT Head: Yes normal to inspection, Yes normocephalic and Yes atraumatic Eyes General: appearance normal, both eyes and all related structures Resp Effort & Inspection: normal respiratory effort and able to speak in complete sentences Cardio Rate: regular rate Peripheral pulses: Peripheral pulses 2+ throughout GI Palpation (GI): Soft to palpation Skin Lesions: no lesions Rashes: no rashes Neuro General: patient oriented x3 Results Reviewed Results Reviewed: Xrays were obtained in the office today and personally reviewed by me of the right knee show medial compartment oa with pf oa Assessment & Plan Assessment & Plan (1) Osteoarthritis of right knee: Code(s): M17.11 - Unilateral primary osteoarthritis, right knee Category: Medical Qualifiers: Osteoarthritis type: primary Qualified Code(s): M17.11 - Unilateral primary osteoarthritis, right knee Plan We discussed options which include PT, NSAIDs and injections. The patient will defer on the injection today and proceed with PT and NSAIDs. She was also given a Genumed knee brace in the office today. If symptoms persist, she will contact me for an injection, otherwise, PRN. Orders: Orders XR knee RT 3V Today M17.11 - Unilateral primary osteoarthritis, right knee PT Evaluation and Treatment Today M17.11 - Unilateral primary osteoarthritis, right knee Patient Instructions: Scribed for Uriel Ordoñez PA-C, by Elia Porter durable medical equipment technician, on 08/05/2023 at 2:15 PM EST.? I, Uriel Ordoñez PA-C, have personally reviewed and agree with the information entered by the scribe. Coding Level of Care Code New Pt Level 3 (89914) Diagnoses Primary osteoarthritis of right knee M17.11 Osteoarthritis type: primary
== END 2023-08-05 14:45 | disposition home or self-care (01) ==
PROVIDERS: PCP Internal Medicine Geriatric Medicine; Visit Provider Physician Assistant
DX: M17.11 Unilateral primary osteoarthritis, right knee (principal)
CPT/HCPCS: 99203

== ENCOUNTER 2023-08-31 10:48 | Outpatient (REF) | payer OTHER, SELFPAY ==
[2023-08-31 13:26] LABS: MANUAL DIFF FLAG NO
[2023-08-31 13:42] LABS: Basophils Absolute Auto 0.1 X10*3/uL (0.0-0.2); Basophils Percent Auto 0.8 % (0-2); Eosinophils Absolute Auto 0.2 X10*3/uL (0.0-0.4); Eosinophils Percent Auto 3.3 % (0-4); Hematocrit 41.1 % (37.0-47.0); Hemoglobin 13.5 g/dl (12.0-16.0); Imm Gran Abs Auto 0.02 X10*3/uL (0.00-0.03); Imm Gran Pct Auto 0.3 % (0.0-0.4); Lymphocytes Absolute Auto 1.7 X10*3/uL (1.2-4.9); Lymphocytes Percent Auto 28.4 % (20-40); Mean Corpuscular HGB Conc 32.8 g/dl (31.0-35.0); Mean Corpuscular Hemoglobin 28.5 pg (27.0-33.0); Mean Corpuscular Volume 86.9 fL (80.0-98.0); Mean Platelet Volume 10.5 fL (9.4-12.3); Monocytes Absolute Auto 0.5 X10*3/uL (0.1-1.2); Monocytes Percent Auto 8.9 % (2-11); Neutrophils Absolute Auto 3.5 x10*3/uL (2.0-8.3); Neutrophils Percent Auto 58.3 % (45-73); Platelet Count 274 X10*3/uL (160-400); Red Blood Count 4.73 X10*6/uL (4.20-5.50); Red Cell Distribution Width 13.5 % (11.0-16.0); White Blood Count 6.1 X10*3/uL (4.8-10.8)
[2023-08-31 14:16] LABS: TSH reflex Free T4 2.29 uIU/mL (0.32-4.0)
== END 2023-08-31 10:49 | disposition home or self-care (01) ==
LOC: HO.HHCL 10:48
PROVIDERS: Visit Provider Nurse Practitioner Family
DX: E03.9 Hypothyroidism, unspecified (principal)
CPT/HCPCS: 36415; 84443; 85025

== ENCOUNTER 2023-09-07 10:15 | Outpatient (AMB) | payer OTHER, SELFPAY ==
[2023-09-07 10:31] VITALS: BMI 27.3
--- NOTE | 2023-09-07 10:31 | MHC.OFFVIS ---
Vital Signs 09/07/23 10:31 Height 5 ft Weight 140 lb BMI 27.3 Intake Visit Reasons: N/P LBP radiates to left hip Intake Note: Pippa is a 63 year old female who presents to the office as a new patient for LBP radiating to left hip. Referral provider unknown. Pt states that she has been having this pain for many year now. She has completed Physical therapy and has had injections which were not helpful. These injections were administered in the anterior and posterior aspects of the left hip with PSSP. She denies numbness and tingling but reports pain radiating down the knee. Denies previous injury. Hx of bilateral knee gel injections as well as cortisone injections that were done in about April/May at [facility] Patient Financial Coordinator Services: Patient Financial Coordinator Present Allergies tuberculin, purified protein deriva [TB TEST] Allergy (Severe, Verified 09/07/23 10:45) ANGIOEDEMA liquid of tb test Allergy (Severe, Uncoded 09/07/23 10:45) Rash Medication List - Last Reconciled 09/07/23 by Nayely Myers MD albuterol sulfate 90 mcg/actuation 2 puffs PO Q4-6H PRN amlodipine 5 mg PO DAILY aspirin 81 mg PO DAILY atorvastatin 1 tab PO DAILY diclofenac sodium 1% 1 ea topical DAILY dulaglutide (Trulicity) 0.75 mg subcut QWEEK duloxetine 30 mg PO DAILY fluticasone propionate 50 mcg/actuation 2 sprays intranasal DAILY fluticasone propionate 220 mcg/actuation (Flovent HFA) 2 puffs inhalation BID gabapentin 100 mg PO TID hydroxyzine pamoate 1 cap PO BID ketoconazole 2% 1 appl topical DAILY lamotrigine 25 mg PO DAILY lamotrigine ER 25 mg PO DAILY levothyroxine 1 tab PO DAILY levothyroxine 88 mcg PO DAILY loratadine 1 tab PO DAILY metformin 1 tab PO QAM metoprolol tartrate 1 tab PO BID montelukast (Singulair) 1 tab PO BEDTIME omega 2-rrq-pcl-fish oil 300-1,000 mg 1 cap PO DAILY omeprazole 1 cap PO DAILY trazodone 50 mg PO BEDTIME zaleplon 10 mg PO BEDTIME PRN HPI Comments Details: Seen with interpreter translator. Back pain, pointing from right SI joint area/coccyx area, going to left buttocks and left hip down to left knee. Does not radiate to left foot. Unrelated left ankle pain where she had surgery for in the past. Left leg does not get numb. Injections in the past when to left groin and points to ischial. She had coccxy injection many years ago. Denies having SI joint injection or lumbar epidural. No recent lumbar imaging. History of left breast cancer s/p chemotherapy. History of DM. PFSH Medical History Frequency of urination Hernia Depression Anxiety Heart disease Diabetes Asthma Fibromyalgia Atypical lobular hyperplasia (ALH) of breast Surgical History Hx of cardiac cath H/O rectal polypectomy History of carpal tunnel surgery Hx of toe surgery Hx of right knee surgery Hx of tonsillectomy History of appendectomy Hx of cholecystectomy H/O: hysterectomy Hx of section Family History Brother Heart disease Asthma Mother Family history of esophageal cancer Hypertension Asthma Lung cancer Father History of prostate cancer Asthma Paternal Aunt No problems noted. Paternal Grandfather Liver cancer Colon cancer Family/Other Stomach cancer Maternal Aunt Breast cancer Social History Household Members: None Housing: Apartment Are you a primary child care lead teacher to a significant other at home: No Do you presently have visiting nurse or other home services: No Alcohol intake: former Patient Tobacco Use Status: Never used Tobacco service: No Current occupational status: disabled Female Reproductive History Menstrual Age of Menarche: 15 Review of Systems Const All systems reviewed & are unremarkable except as noted in HPI and below Physical Exam Vital Signs: BMI result Body Mass Index 27.3 Constitutional: Patient appears to be in no acute distress, well nourished and well developed. Patient was appropriately conversant and oriented. Good historian. MSK: No specific abnormalities found on inspection of the spine and all extremities. Tender on lowest level lumbar, bilateral SI joints, bilateral lateral hip, and left ischial tuberosity. Lumbar ROM was full. Bilateral hip, knee and ankle ROM WNL. No ligamentous laxity or crepitance. No increased effusion. Straight-leg raising test negative. FABERE test positive back pain. Strength is 5/5 in all muscle groups tested though some give-way weakness on hip flexion due to pain. No increased tone noted. Neurological: Exam nonfocal. Monk?s negative bilaterally. Babinski was down going bilaterally. Clonus was negative. Gait is non-antalgic without loss of balance. Results Reviewed Results Reviewed: I reviewed records from the following: Previously seen by Orthopedics for right knee pain Assessment & Plan Assessment & Plan (1) Pain of both sacroiliac joints: Code(s): M53.3 - Sacrococcygeal disorders, not elsewhere classified Category: Medical (2) Bilateral hip pain: Code(s): M25.551 - Pain in right hip; M25.552 - Pain in left hip Category: Medical (3) Chronic lower back pain: Code(s): M54.50 - Low back pain, unspecified; G89.29 - Other chronic pain Category: Medical Qualifiers: Back pain laterality: midline Sciatica presence: without sciatica Qualified Code(s): M54.50 - Low back pain, unspecified; G89.29 - Other chronic pain Plan Chronic back pain which seems to be coming from SI joints and lateral hips. Further investigation warranted. We will do x-rays of lumbar spine, pelvic/coccyx and bilateral hips today. Referring her back to PT to work on SI joint and hips. Assessment and plan discussed with patient, and patient was agreeable. All questions were answered thoroughly. Follow up 2 months. Nayely Myers MD, MIRA Board Certified, [place] Board of Physical Medicine and Rehabilitation (ABPMR) Board Certified, [place] Board of Electrodiagnostic Medicine (ABEM) Orders: Orders XR lumbar spine 2-3V Today G89.29 - Other chronic pain, M25.551 - Pain in right hip, M25.552 - Pain in left hip, M53.3 - Sacrococcygeal disorders, not elsewhere classified, M54.50 - Low back pain, unspecified, M54.9 - Dorsalgia, unspecified XR hips JH min 3V Today G89.29 - Other chronic pain, M25.551 - Pain in right hip, M25.552 - Pain in left hip, M25.559 - Pain in unspecified hip, M53.3 - Sacrococcygeal disorders, not elsewhere classified, M54.50 - Low back pain, unspecified XR sacrum coccyx min 2V Today G89.29 - Other chronic pain, M25.551 - Pain in right hip, M25.552 - Pain in left hip, M53.3 - Sacrococcygeal disorders, not elsewhere classified, M54.50 - Low back pain, unspecified PT Evaluation and Treatment Today G89.29 - Other chronic pain, M53.3 - Sacrococcygeal disorders, not elsewhere classified, M54.50 - Low back pain, unspecified Coding Level of Care Code New Pt Level 4 (93905) Diagnoses Pain of both sacroiliac joints M53.3 Bilateral hip pain M25.551; M25.552 Chronic midline low back pain without sciatica M54.50; G89.29 Back pain laterality: midline Sciatica presence: without sciatica
== END 2023-09-07 13:50 | disposition home or self-care (01) ==
PROVIDERS: PCP Internal Medicine Geriatric Medicine; Visit Provider Physical Medicine & Rehabilitation
DX: M53.3 Sacrococcygeal disorders, not elsewhere classified (principal); M25.551 Pain in right hip; M25.552 Pain in left hip; M54.50 Low back pain, unspecified; G89.29 Other chronic pain
CPT/HCPCS: 99203

== ENCOUNTER 2023-09-07 10:15 | Outpatient (REF) | payer OTHER, SELFPAY ==
--- NOTE | ~2023-09-07 | XR_ITS ---
EXAMINATION: XR LUMBAR SPINE XR SACRUM/COCCYX XR HIPS, BILATERAL CLINICAL INFORMATION: Back pain, hip pain, sacrococcygeal disorders not otherwise classified. COMPARISON: Lumbar spine July 07, 2015. TECHNIQUE: 3 views lumbar spine, 3 views bilateral sacroiliac joints, 2 views each hip. FINDINGS: LUMBAR SPINE: Surgical clips right upper quadrant. Diffuse demineralization. Slight levoscoliosis of the lumbar spine. Advanced facet arthritis in the glz-gw-airml lumbar spine. Mild multilevel lumbar spondylosis. Grade 1 anterolisthesis of L4 on L5 with mild loss of disc space height. Mild loss of disc space height at L5-S1. SACRUM/COCCYX: 6 mm rounded calcification to the right of the lower lumbar spine was not appreciated on prior exam. Innumerable additional calcifications overlying the bilateral upper medial pelvis as well as over the central and lower pelvis. Diffuse demineralization. Mild degenerative changes of bilateral sacroiliac joints. RIGHT HIP: Diffuse demineralization. Moderate degenerative changes with joint space narrowing and hypertrophic change. Alignment maintained. XR/XR lumbar spine 2-3V IMPRESSION: 1. Moderate lumbar spondylosis most notable at L4-L5 and L5-S1. 2. Moderate degenerative changes in the bilateral hips. 3. Advanced facet arthritis in the mid to lower lumbar spine. 4. Mild degenerative changes in the bilateral sacroiliac joints. 5. A 6 mm rounded calcification to the right of the lower lumbar spine was not appreciated on prior exam. Innumerable additional calcifications overlying the bilateral upper medial pelvis as well as over the central lower pelvis. 6. Diffuse demineralization.
--- NOTE | ~2023-09-07 | XR_ITS ---
EXAMINATION: XR LUMBAR SPINE XR SACRUM/COCCYX XR HIPS, BILATERAL CLINICAL INFORMATION: Back pain, hip pain, sacrococcygeal disorders not otherwise classified. COMPARISON: Lumbar spine July 07, 2015. TECHNIQUE: 3 views lumbar spine, 3 views bilateral sacroiliac joints, 2 views each hip. FINDINGS: LUMBAR SPINE: Surgical clips right upper quadrant. Diffuse demineralization. Slight levoscoliosis of the lumbar spine. Advanced facet arthritis in the auo-gb-pctih lumbar spine. Mild multilevel lumbar spondylosis. Grade 1 anterolisthesis of L4 on L5 with mild loss of disc space height. Mild loss of disc space height at L5-S1. SACRUM/COCCYX: 6 mm rounded calcification to the right of the lower lumbar spine was not appreciated on prior exam. Innumerable additional calcifications overlying the bilateral upper medial pelvis as well as over the central and lower pelvis. Diffuse demineralization. Mild degenerative changes of bilateral sacroiliac joints. RIGHT HIP: Diffuse demineralization. Moderate degenerative changes with joint space narrowing and hypertrophic change. Alignment maintained. XR/XR sacrum coccyx min 2V IMPRESSION: 1. Moderate lumbar spondylosis most notable at L4-L5 and L5-S1. 2. Moderate degenerative changes in the bilateral hips. 3. Advanced facet arthritis in the mid to lower lumbar spine. 4. Mild degenerative changes in the bilateral sacroiliac joints. 5. A 6 mm rounded calcification to the right of the lower lumbar spine was not appreciated on prior exam. Innumerable additional calcifications overlying the bilateral upper medial pelvis as well as over the central lower pelvis. 6. Diffuse demineralization.
--- NOTE | ~2023-09-07 | XR_ITS ---
EXAMINATION: XR LUMBAR SPINE XR SACRUM/COCCYX XR HIPS, BILATERAL CLINICAL INFORMATION: Back pain, hip pain, sacrococcygeal disorders not otherwise classified. COMPARISON: Lumbar spine July 07, 2015. TECHNIQUE: 3 views lumbar spine, 3 views bilateral sacroiliac joints, 2 views each hip. FINDINGS: LUMBAR SPINE: Surgical clips right upper quadrant. Diffuse demineralization. Slight levoscoliosis of the lumbar spine. Advanced facet arthritis in the rls-vb-kpsse lumbar spine. Mild multilevel lumbar spondylosis. Grade 1 anterolisthesis of L4 on L5 with mild loss of disc space height. Mild loss of disc space height at L5-S1. SACRUM/COCCYX: 6 mm rounded calcification to the right of the lower lumbar spine was not appreciated on prior exam. Innumerable additional calcifications overlying the bilateral upper medial pelvis as well as over the central and lower pelvis. Diffuse demineralization. Mild degenerative changes of bilateral sacroiliac joints. RIGHT HIP: Diffuse demineralization. Moderate degenerative changes with joint space narrowing and hypertrophic change. Alignment maintained. XR/XR hips JH min 3V IMPRESSION: 1. Moderate lumbar spondylosis most notable at L4-L5 and L5-S1. 2. Moderate degenerative changes in the bilateral hips. 3. Advanced facet arthritis in the mid to lower lumbar spine. 4. Mild degenerative changes in the bilateral sacroiliac joints. 5. A 6 mm rounded calcification to the right of the lower lumbar spine was not appreciated on prior exam. Innumerable additional calcifications overlying the bilateral upper medial pelvis as well as over the central lower pelvis. 6. Diffuse demineralization.
== END 2023-09-07 10:16 | disposition home or self-care (01) ==
LOC: HO.HOSX 10:15
PROVIDERS: PCP Internal Medicine Geriatric Medicine; Visit Provider Physical Medicine & Rehabilitation
DX: M53.3 Sacrococcygeal disorders, not elsewhere classified (principal); M25.551 Pain in right hip; M25.552 Pain in left hip; M54.50 Low back pain, unspecified; G89.29 Other chronic pain; M54.9 Dorsalgia, unspecified
CPT/HCPCS: 72100; 72220; 73522; 99202

== ENCOUNTER 2023-10-05 09:00 | Outpatient (RCR) | payer OTHER, SELFPAY ==
--- NOTE | 2023-09-13 12:13 | MHC.PT.EP ---
[facility] [place] Office [place] Office [place] Office [address] Sharon Castro [address] [phone] F: [phone] F: [phone] F: [phone] F: [phone] Physical Therapy Plan of Care Date of Evaluation: 09/13/23 Date of Surgery: Diagnosis: low back pain and hip pain Assessment: Patient is a 63 year old R handed female who presents with s/s consistent with hip and low back pain. She does not work but does enjoy walking and being in the community. Patient past medical history includes R knee OA, L ankle surgery and multiple location pain. Current impairments include pain, posture, ROM, strength, activity tolerance and functional mobility. Functional limitations include decreased ability to sleep, stand, walk, transfer, negotiate stairs, bend and lift. Patient is motivated with good rehab potential. Skilled PT will address impairments and functional limitations in order to achieve goals. Frequency and Duration: The patient will be seen 2x/week for 5 weeks Short Term Goals: I with HEP - 2 weeks AROM rotation 50% b/l - 3 weeks AROM hip flexion to 110 b/l - 3 weeks AROM hip ER to 35 b/l - 3 weeks Snf Goals: Able to walk 10 minutes without increased pain - 5 weeks Pain free sleep for 8 hours - 5 weeks Max pain with ADLs 2/10 - 5 weeks Treatment Plan: Modalities to reduce pain, spasms and effusion. Manual therapy to restore motion and function. Therapeutic exercise to improve strength and flexibility. Neuromuscular re-education for posture and balance. Therapeutic activities to return to functional activities of daily living. Electronically signed by: Uli Weldon, PT Please sign and return to therapist. Thank you for your referral.
--- NOTE | 2023-12-08 13:27 | MHC.PT.DC ---
[facility] [place] Office [place] Office [place] Office [address] Sharon Castro [address] [phone] F: [phone] F: [phone] F: [phone] F: [phone] Physical Therapy Discharge Report Diagnosis: low back pain and hip pain Date of Surgery: Date of Evaluation: 09/13/23 Date of Discharge: 10/09/23 Treatments to Date: 6 Cancellations to Date: No Shows to Date: Discharge Status: Patient Elected to Stop Discharge Summary: 10/05/23: we will progress program next visit as pt progress as been slow but her activity tolerance has improved. 10/03/23: pt progressing slowly. limited tolerance. continue to progress as tolerated with strength and stretching. s/s worse at night. 09/28/23: pt progressing with resistance activities and total activity tolerance. continue to progress as tolerated. 09/26/23: pt with improved activity tolerance with standing/sitting ex. progress with less plinth centered intervention. 09/21/23: pt with low activity tolerance today. difficulty progressing due to painful response. assess response Nv. Patient is a 63 year old R handed female who presents with s/s consistent with hip and low back pain. She does not work but does enjoy walking and being in the community. Patient past medical history includes R knee OA, L ankle surgery and multiple location pain. Current impairments include pain, posture, ROM, strength, activity tolerance and functional mobility. Functional limitations include decreased ability to sleep, stand, walk, transfer, negotiate stairs, bend and lift. Patient is motivated with good rehab potential. Skilled PT will address impairments and functional limitations in order to achieve goals. Electronically signed by: Uli Weldon, PT Please sign and return to therapist. Thank you for your referral.
== END 2023-12-08 13:28 | disposition home or self-care (01) ==
LOC: HO.PTCHIC 09:00
PROVIDERS: PCP Internal Medicine Geriatric Medicine; Visit Provider Physical Medicine & Rehabilitation
DX: M54.50 Low back pain, unspecified (principal); M53.3 Sacrococcygeal disorders, not elsewhere classified; G89.29 Other chronic pain
CPT/HCPCS: 97110; 97140; 97163

== ENCOUNTER 2023-11-09 09:11 | Outpatient (REF) | payer OTHER, SELFPAY ==
[2023-11-09 12:37] LABS: Appearance Urine Clear; Color Urine Yellow; Glucose Urine UA Negative (Negative); Leukocyte Esterase Urine Negative (Negative); Nitrite Urine Negative (Negative); Specific Gravity - Urine 1.015 (1.005-1.025); Urine Blood Negative (Negative); Urine Ketones Negative (Negative); Urine Protein Negative (Neg-Trace)
== END 2023-11-09 09:12 | disposition home or self-care (01) ==
LOC: HO.LAB 09:11
PROVIDERS: PCP Internal Medicine Geriatric Medicine; Visit Provider Physical Medicine & Rehabilitation
DX: M16.0 Bilateral primary osteoarthritis of hip (principal); M54.50 Low back pain, unspecified; I87.8 Other specified disorders of veins; N39.0 Urinary tract infection, site not specified
CPT/HCPCS: 81003; 99212

== ENCOUNTER 2023-11-09 09:11 | Outpatient (AMB) | payer OTHER, SELFPAY ==
--- NOTE | 2023-11-09 09:25 | A.OFFVIS_ITS ---
Intake Visit Reasons: OV-LBP radiates to left hip-Follow up Intake Note: Pippa is a 63 year old female who presents to the office for a follow up evaluation of low back pain that radiates to left hip. Patient reports she has been going to physical therapy which has not helped. Pt states she continues to have pain that goes from her lower back to her hip and down to her knee. Pt states she is having difficulty walking. Adjunct Mathematics Instructor Required: Yes Adjunct Mathematics Instructor Language: Visiting Housekeeper Name: Tristan ([id number]) Allergies tuberculin, purified protein deriva [TB TEST] Allergy (Severe, Verified 11/09/23 09:25) ANGIOEDEMA liquid of tb test Allergy (Severe, Uncoded 11/09/23 09:25) Rash HPI Comments Details: Seen with oracle database consultant. Initially seen for back pain, pointing from SI joint area/coccyx area, going to left buttocks and left hip down to left knee. Does not radiate to left foot. Unrelated left ankle pain where she had surgery for in the past. Left leg does not get numb. Injections in the past when to left groin and points to ischial. She had coccxy injection many years ago. Denies having SI joint injection or lumbar epidural. No recent lumbar imaging. History of left breast cancer s/p chemotherapy. History of DM. Past injections to left hip and knees affected her blood sugars. Does not want further injections. She had gone to ER last week. She was also having urinary burning at that time. UA was not done. No fever. [facility] Medical History (Updated 11/09/23 @ 10:05 by Nayely Myers MD) Osteoarthritis, hip, bilateral Frequency of urination Hernia Depression Anxiety Heart disease Diabetes Asthma Fibromyalgia Atypical lobular hyperplasia (ALH) of breast Surgical History Hx of cardiac cath H/O rectal polypectomy History of carpal tunnel surgery Hx of toe surgery Hx of right knee surgery Hx of tonsillectomy History of appendectomy Hx of cholecystectomy H/O: hysterectomy Hx of section Family History Brother Heart disease Asthma Mother Family history of esophageal cancer Hypertension Asthma Lung cancer Father History of prostate cancer Asthma Paternal Aunt No problems noted. Paternal Grandfather Liver cancer Colon cancer Family/Other Stomach cancer Maternal Aunt Breast cancer Social History Household Members: None Housing: Apartment Are you a primary post acute care nurse to a significant other at home: No Do you presently have visiting nurse or other home services: No Alcohol intake: former Patient Tobacco Use Status: Never used Tobacco service: No Current occupational status: disabled Female Reproductive History Menstrual Age of Menarche: 15 Physical Exam Constitutional: Patient appears to be in no acute distress, well nourished and well developed. Patient was appropriately conversant and oriented. Good historian. MSK: No specific abnormalities found on inspection of the spine and all extremities. Tender on lowest level lumbar, bilateral SI joints, bilateral lateral hip, and left ischial tuberosity. Lumbar ROM was full. Bilateral hip, knee and ankle ROM WNL. No ligamentous laxity or crepitance. No increased effusion. Straight-leg raising test negative. FABERE test left groin pain. Strength is 5/5 in all muscle groups tested though some give-way weakness on hip flexion due to pain. No increased tone noted. Neurological: Exam nonfocal. Monk?s negative bilaterally. Babinski was down going bilaterally. Clonus was negative. Gait is antalgic without loss of balance. Results Reviewed Results Reviewed: Ordering Physician: Nayely Rios Date of Service: 09/07/23 Procedure(s): XR sacrum coccyx min 2V Accession Number(s): [id number] cc: Name,Edmund HERNANDEZ; Nayely Rios~ EXAMINATION: XR LUMBAR SPINE XR SACRUM/COCCYX XR HIPS, BILATERAL CLINICAL INFORMATION: Back pain, hip pain, sacrococcygeal disorders not otherwise classified. COMPARISON: Lumbar spine July 07, 2015. TECHNIQUE: 3 views lumbar spine, 3 views bilateral sacroiliac joints, 2 views each hip. FINDINGS: LUMBAR SPINE: Surgical clips right upper quadrant. Diffuse demineralization. Slight levoscoliosis of the lumbar spine. Advanced facet arthritis in the avd-jj-ulcpq lumbar spine. Mild multilevel lumbar spondylosis. Grade 1 anterolisthesis of L4 on L5 with mild loss of disc space height. Mild loss of disc space height at L5-S1. SACRUM/COCCYX: 6 mm rounded calcification to the right of the lower lumbar spine was not appreciated on prior exam. Innumerable additional calcifications overlying the bilateral upper medial pelvis as well as over the central and lower pelvis. Diffuse demineralization. Mild degenerative changes of bilateral sacroiliac joints. RIGHT HIP: Diffuse demineralization. Moderate degenerative changes with joint space narrowing and hypertrophic change. Alignment maintained. XR/XR sacrum coccyx min 2V IMPRESSION: 1. Moderate lumbar spondylosis most notable at L4-L5 and L5-S1. 2. Moderate degenerative changes in the bilateral hips. 3. Advanced facet arthritis in the mid to lower lumbar spine. 4. Mild degenerative changes in the bilateral sacroiliac joints. 5. A 6 mm rounded calcification to the right of the lower lumbar spine was not appreciated on prior exam. Innumerable additional calcifications overlying the bilateral upper medial pelvis as well as over the central lower pelvis. 6. Diffuse demineralization. Assessment & Plan Assessment & Plan (1) Phlebolith: Code(s): I87.8 - Other specified disorders of veins Category: Medical (2) Osteoarthritis, hip, bilateral: Code(s): M16.0 - Bilateral primary osteoarthritis of hip Category: Medical Qualifiers: Osteoarthritis type: primary Qualified Code(s): M16.0 - Bilateral primary osteoarthritis of hip (3) Urinary tract infection: Code(s): N39.0 - Urinary tract infection, site not specified Qualifiers: Urinary tract infection type: site unspecified Hematuria presence: wit hout hematuria Qualified Code(s): N39.0 - Urinary tract infection, site not specified Plan Reviewed images which shows calcifications, suspect ureters. Reached out to Urology to ask whether further workup needed before urology consult. Recommended CT scan to be order, which I did but has been held up due to insurance approval. Waiting for CT scan to be scheduled, which was already approved. I will also put referral to Urology today. She also mentions that she went to the ER, complaining of urinary burning and pain. Urinary the cyst was not done. We will order urinalysis today to rule out UTI. As for her pain, she complains the most of left hip/groin pain which I believe is consistent with left hip DJD as seen on xray. She can not tolerate steroid injections due to poorly controlled diabetes. She has actually had intra- articular hip injection in the past without much relief. She has tried PT without long-lasting relief. At this point referring her to Orthopedics for consideration of hip joint replacement. Patient eager to proceed that route. Assessment and plan discussed with patient, and patient was agreeable. All questions were answered thoroughly. Nayely Myers MD, MIRA Board Certified, [place] Board of Physical Medicine and Rehabilitation (ABPMR) Board Certified, [place] Board of Electrodiagnostic Medicine (ABEM) Orders: Orders UA CC w/rflx Micro + Cult Today I87.8 - Other specified disorders of veins, N39.0 - Urinary tract infection, site not specified Referrals Urology Referral I87.8 - Other specified disorders of veins Coding Level of Care Code Est Pt Level 4 (92403) Diagnoses Phlebolith I87.8 Primary osteoarthritis of both hips M16.0 Osteoarthritis type: primary Urinary tract infection without hematuria, site unspecified N39.0 Urinary tract infection type: site unspecified Hematuria presence: without hematuria
== END 2023-11-09 10:03 | disposition home or self-care (01) ==
PROVIDERS: PCP Internal Medicine Geriatric Medicine; Visit Provider Physical Medicine & Rehabilitation
DX: I87.8 Other specified disorders of veins (principal); M16.0 Bilateral primary osteoarthritis of hip; N39.0 Urinary tract infection, site not specified
CPT/HCPCS: 99214

== ENCOUNTER 2023-12-02 10:51 | Outpatient (AMB) | payer OTHER, SELFPAY ==
--- NOTE | 2023-12-02 11:17 | MHC.OFFVIS ---
Intake Visit Reasons: New prob- Left hip, discuss replacement Intake Note: Pippa is a 63 year old female who presents today for a new problem visit of left hip pain. Patient was previously seen with Dr. Rios , has done PT and has had history of injections most recent being about 1 year ago Allergies tuberculin, purified protein deriva [TB TEST] Allergy (Severe, Verified 12/02/23 11:19) ANGIOEDEMA liquid of tb test Allergy (Severe, Uncoded 12/02/23 11:19) Rash HPI HPI New prob- Left hip, discuss replacement: Details: Pippa is a 63 year old female who presents today for a new problem visit of left hip pain. Patient was previously seen with Dr. Rios , has done PT and has had history of injections most recent being about 1 year ago. She describes pain in the groin that is difficult to tolerate. She states she can only walk for short distances without pain and that she is not sleeping well. She was seen by Dr Rios and referred to me for hip OA. Interestingly she had an intra-articular hip injection and her pain dissapeared almost entirely but retruned 1-2 weeks later. [facility] Medical History (Updated 12/04/23 @ 13:13 by Malcolm Mooney MD) Osteoarthritis, hip, bilateral Frequency of urination Hernia Depression Anxiety Heart disease Diabetes Asthma Fibromyalgia Atypical lobular hyperplasia (ALH) of breast Surgical History Hx of cardiac cath H/O rectal polypectomy History of carpal tunnel surgery Hx of toe surgery Hx of right knee surgery Hx of tonsillectomy History of appendectomy Hx of cholecystectomy H/O: hysterectomy Hx of section Family History Brother Heart disease Asthma Mother Family history of esophageal cancer Hypertension Asthma Lung cancer Father History of prostate cancer Asthma Paternal Aunt No problems noted. Paternal Grandfather Liver cancer Colon cancer Family/Other Stomach cancer Maternal Aunt Breast cancer Social History Household Members: None Housing: Apartment Are you a primary health care technician to a significant other at home: No Do you presently have visiting nurse or other home services: No Alcohol intake: former Patient Tobacco Use Status: Never used Tobacco service: No Current occupational status: disabled Female Reproductive History Menstrual Age of Menarche: 15 Physical Exam Extrem Other: Mild Trendelenberg gait. + Impingement test. ROM similar to c/l side Results Reviewed Results Reviewed: I personally reviewed relevant radiographs. 1. Moderate lumbar spondylosis most notable at L4-L5 and L5-S1. 2. Moderate degenerative changes in the bilateral hips. 3. Advanced facet arthritis in the mid to lower lumbar spine. 4. Mild degenerative changes in the bilateral sacroiliac joints. 5. A 6 mm rounded calcification to the right of the lower lumbar spine was not appreciated on prior exam. Innumerable additional calcifications overlying the bilateral upper medial pelvis as well as over the central lower pelvis. 6. Diffuse demineralization. Assessment & Plan Assessment & Plan (1) Osteoarthritis, hip, bilateral: Code(s): M16.0 - Bilateral primary osteoarthritis of hip Category: Medical Qualifiers: Osteoarthritis type: primary Qualified Code(s): M16.0 - Bilateral primary osteoarthritis of hip Plan: This is a 63-year-old woman with moderate osteoarthritis of the left hip. She has been having pain for over a year and feels the quality of her life is diminished. She had an intra-articular injection and it was extremely helpful. All her pain went away. I think this is a good indication that the primary pain generator is her osteoarthritis. She certainly has signs and symptoms of this. She also does have fibromyalgia which, she describes, as causing her more pain than most people. Having said that fibromyalgia is not a contraindication to surgery but the recovery is often slower. I had a long conversation with her regarding her radiographs and her clinical exam in her clinical complaints and I recommend hip arthroplasty. I think she is a good candidate for it. She is a well-controlled diabetic with most of her medical problems relating to her musculoskeletal system. She is anxious about the idea of surgery and we discussed this as well. I explained our protocol and the process of clearance and risk assessment. She sounds like she does want to consider hip arthroplasty and will contact me when she would like to proceed forward. (2) Fibromyalgia: Code(s): M79.7 - Fibromyalgia Category: Medical Plan: Coding Level of Care Code Est Pt Level 4 (84194) Diagnoses Primary osteoarthritis of both hips M16.0 Osteoarthritis type: primary Fibromyalgia M79.7
== END 2023-12-02 12:17 | disposition home or self-care (01) ==
PROVIDERS: PCP Internal Medicine Geriatric Medicine; Visit Provider Orthopaedic Surgery
DX: M16.0 Bilateral primary osteoarthritis of hip (principal); M79.7 Fibromyalgia
CPT/HCPCS: 99214

== ENCOUNTER 2023-12-02 14:12 | Outpatient (REF) | payer OTHER, SELFPAY ==
--- NOTE | ~2023-12-02 | CT_ITS ---
EXAMINATION: CT ABDOMEN AND PELVIS WITHOUT CONTRAST CLINICAL INFORMATION: Calcification noted to the right of the lower lumbar spine on prior radiograph. History of bladder cancer. COMPARISON: Radiographs lumbar spine 09/07/2023. TECHNIQUE: Multidetector volumetric imaging was performed from the superior aspect of the liver through the pubic symphysis. Sagittal and coronal reformatted images were obtained on the technologist's workstation. This CT examination was performed using dose optimization techniques as appropriate, variously including the following: *Automated exposure control *Adjustment of mA and/or kV according to patient size (this includes techniques or standardized protocols for targeted exams where dose is matched to indication/reason for exam; i.e. extremities or head) *Use of iterative reconstruction technique DLP: 364 mGy-cm FINDINGS: The lack of intravenous contrast limits evaluation of the solid visceral organs including the liver, spleen, pancreas, and kidneys. LUNG BASES: Pleural and fissural based groundglass opacities and reticulation with minimal bronchiectasis. Multiple bilateral solid pulmonary nodules, for example a 7 mm nodule in the posterior right lower lobe (4:25) and a 5 mm nodule in the posterolateral left lower lobe (4:57). LIVER, GALLBLADDER, AND BILIARY TREE: The liver is normal in size, shape, and attenuation. No focal hepatic lesion present. Cholecystectomy. Mild extrahepatic biliary ductal dilatation with the CBD measuring up to 0.8 cm in diameter, most likely related with postcholecystectomy state. No intrahepatic biliary ductal dilatation. PANCREAS: Unremarkable. SPLEEN: Unremarkable. ADRENAL GLANDS: Unremarkable. KIDNEYS AND URETERS: No nephrolithiasis or hydronephrosis. No perinephric fat stranding. No discrete focal renal parenchymal lesion in this limited noncontrast examination. Numerous calcifications are noted associated to the right gonadal vasculature that are immediately adjacent to the right ureter limiting evaluation of ureteric calculi, however within limitations no definite ureteric calculi seen and there is no hydroureter. BLADDER: Decompressed limiting evaluation. No discrete intraluminal calculi. No perivesical fat stranding. GASTROINTESTINAL TRACT: Small hiatal hernia. No evidence of bowel obstruction. Normal appendix. Mild colonic diverticulosis without significant pericolonic inflammatory changes. Moderate degree of colonic stool burden. ABDOMINAL WALL: No significant hernia is appreciated. LYMPH NODES: No lymphadenopathy. VASCULAR: Normal caliber abdominal aorta. PELVIC VISCERA: Numerous pelvic calcifications associated to the right gonadal vasculature, bilateral ovaries and pelvic veins. No free fluid or discrete pelvic mass. OSSEOUS STRUCTURES: No acute or aggressive appearing osseous findings. CT/CT abdomen pelvis wo IV con IMPRESSION: 1. In this patient with a history of bladder cancer, evaluation of recurrent or metastatic disease is extremely limited in the absence of intravenous contrast. 2. Innumerable calcific densities in the territory of the right gonadal vasculature, bilateral ovaries and pelvis overall favored to represent phleboliths, although these significantly limits the evaluation of ureteric calculi. No evidence of hydroureteronephrosis. No renal calculi. 3. Small hiatal hernia. 4. Colonic diverticulosis without significant pericolonic inflammatory changes. 5. Moderate degree of colonic stool burden. 6. Pleural and fissural based groundglass opacities and reticulation suspicious for underlying interstitial lung abnormality. Recommend evaluation with outpatient high-resolution CT chest. 7. Multiple solid pulmonary nodules measuring up to 7 mm. In this patient with a history of bladder cancer, recommend follow-up according to oncology guidelines. No prior chest CTs are available for comparison. Electronically signed by: Kristine Lozano MD 12/02/2023 05:10 PM EDT
== END 2023-12-02 14:13 | disposition home or self-care (01) ==
LOC: HO.CT 14:12
PROVIDERS: PCP Internal Medicine Geriatric Medicine; Visit Provider Physical Medicine & Rehabilitation
DX: I87.8 Other specified disorders of veins (principal)
CPT/HCPCS: 74176; 99212

== ENCOUNTER 2023-12-06 09:54 | Outpatient (REF) | payer OTHER, SELFPAY ==
[2023-12-06 11:39] LABS: Appearance Urine Clear; Color Urine Yellow; Glucose Urine UA Negative (Negative); Leukocyte Esterase Urine Negative (Negative); MANUAL DIFF FLAG NO; Nitrite Urine Negative (Negative); PH 5.5 (5.0-9.0); Urine Blood Negative (Negative); Urine Ketones Negative (Negative); Urine Protein Negative (Neg-Trace)
[2023-12-06 11:45] LABS: Bacteria Urine None Seen (None Seen); RBC Urine 0-2 /HPF (0-2); Squamous Epithelial Cell Urine 0-2 /HPF (0-2); WBC Urine 0-5 /HPF (0-5)
[2023-12-06 11:47] LABS: Basophils Absolute Auto 0.1 X10*3/uL (0.0-0.2); Basophils Percent Auto 0.8 % (0-2); Eosinophils Absolute Auto 0.2 X10*3/uL (0.0-0.4); Eosinophils Percent Auto 3.9 % (0-4); Hematocrit 44.8 % (37.0-47.0); Hemoglobin 14.7 g/dl (12.0-16.0); Imm Gran Abs Auto 0.01 X10*3/uL (0.00-0.03); Imm Gran Pct Auto 0.2 % (0.0-0.4); Lymphocytes Absolute Auto 1.9 X10*3/uL (1.2-4.9); Lymphocytes Percent Auto 30.7 % (20-40); Mean Corpuscular HGB Conc 32.8 g/dl (31.0-35.0); Mean Corpuscular Hemoglobin 28.5 pg (27.0-33.0); Mean Corpuscular Volume 86.8 fL (80.0-98.0); Mean Platelet Volume 9.9 fL (9.4-12.3); Monocytes Absolute Auto 0.8 X10*3/uL (0.1-1.2); Monocytes Percent Auto 12.5 % (2-11); Neutrophils Absolute Auto 3.2 x10*3/uL (2.0-8.3); Neutrophils Percent Auto 51.9 % (45-73); Platelet Count 316 X10*3/uL (160-400); Red Blood Count 5.16 X10*6/uL (4.20-5.50); Red Cell Distribution Width 14.5 % (11.0-16.0); White Blood Count 6.2 X10*3/uL (4.8-10.8)
[2023-12-06 12:12] LABS: Creatinine Urine 123.16 mg/dL; Microalbum/Creatinine Ratio Ur 8.9 ug/mg cr (<30)
[2023-12-06 12:18] LABS: Alanine Aminotransferase 19 U/L (0-31); Albumin Level 4.3 g/dL (3.5-5.0); Alkaline Phosphatase 95 U/L (39-117); Anion Gap 13 (12-20); Aspartate Amino Transferase 23 U/L (5-31); Bilirubin Total 0.4 mg/dL (0.0-1.0); Blood Urea Nitrogen 10 mg/dL (9-16); Calcium 10.1 mg/dL (8.4-10.2); Carbon Dioxide 26 mmol/L (22-29); Chloride 109 mmol/L (96-108); Estimated Glomerular Filt Rate > 60; Glucose Random 122 mg/dL (60-115); Potassium 3.9 mmol/L (3.3-5.1); Sodium 144 mmol/L (135-145); Total Protein 7.7 g/dL (6.5-8.0)
== END 2023-12-06 09:55 | disposition home or self-care (01) ==
LOC: HO.HHCL 09:54
PROVIDERS: Internal Medicine Geriatric Medicine; Visit Provider Internal Medicine Medical Oncology
DX: N60.99 Unspecified benign mammary dysplasia of unspecified breast (principal); E11.9 Type 2 diabetes mellitus without complications; N32.89 Other specified disorders of bladder
CPT/HCPCS: 36415; 80053; 81001; 82043; 82570; 85025

== ENCOUNTER 2023-12-21 09:49 | Outpatient (AMB) | payer OTHER, SELFPAY ==
--- NOTE | 2023-12-21 09:54 | MHC.OFFVIS ---
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 [employer] Specialist Required: Yes [employer] Specialist Language: Sole Painter Name: Imelda Meyers [id number] Information Interpreted: non-clinical & clinical Mothers Helper: Mothers Helper Present (Leonela) Accompanied by: Daughter Allergies tuberculin, purified protein deriva [TB TEST] Allergy (Severe, Verified 12/21/23 09:54) ANGIOEDEMA liquid of tb test Allergy (Severe, Uncoded 12/02/23 11:19) Rash HPI Comments Details: She is a postmenopausal woman presenting for her annual visual aid expert examination, accompanied by her STEAM GENERATING POWERPLANT MECHANIC Marium Cabello. She is doing well with concerns: pain on lower left pelvis/hip area for over a year. CT results concerns for visual aid expert calcifications on right pelvis noted. Has frequency of urination is being monitored by her primary care at [facility] and by Urology Department-has a follow up appointment 01/03/24. Attempting to eat a healthy diet with calcium and vitamin D, she reports being an active person but has limitations due to her hip pain. Currently not sexually active. Denies any vaginal dryness or irritation. History of hysterectomy due to heavy menstrual bleeding. Last mammogram; 2023. Colonoscopy is UTD. PFSH Medical History Osteoarthritis, hip, bilateral Frequency of urination Hernia Depression Anxiety Heart disease Diabetes Asthma Fibromyalgia Atypical lobular hyperplasia (ALH) of breast Surgical History Hx of cardiac cath H/O rectal polypectomy History of carpal tunnel surgery Hx of toe surgery Hx of right knee surgery Hx of tonsillectomy History of appendectomy Hx of cholecystectomy H/O: hysterectomy Hx of section Family History Brother Heart disease Asthma Mother Family history of esophageal cancer Hypertension Asthma Lung cancer Father History of prostate cancer Asthma Paternal Aunt No problems noted. Paternal Grandfather Liver cancer Colon cancer Family/Other Stomach cancer Maternal Aunt Breast cancer Social History Household Members: None Housing: Apartment Are you a primary care tech to a significant other at home: No Do you presently have visiting nurse or other home services: No Alcohol intake: former Patient Tobacco Use Status: Never used Tobacco service: No Current occupational status: disabled Female Reproductive History Menstrual Age of Menarche: 15 Menopause type: surgical Total pregnancies: 3 Full term: 2 Number of Living Children: 2 Date of Mammogram: 07/05/23 (Birad 2) Date of last Bone Density Screenin07/05/23 Review of Systems Const All systems reviewed & are unremarkable except as noted in HPI and below Reports as per HPI Eyes Reports no additional complaints ENT Reports no additional complaints Card Reports no additional complaints Resp Reports no additional complaints GI Reports as per HPI and Reports no additional complaints Reports as per HPI Musc Reports no additional complaints Skin/Breast Reports as per HPI Neuro Reports no additional complaints Psych Reports no additional complaints Endo Reports no additional complaints Buster/Lymph Reports no additional complaints Aller/Immun Reports no additional complaints Physical Exam Vital Signs: Last Vital Signs BP 116/70 12/21/23 09:55 BMI result Body Mass Index 27.3 Const General: cooperative, healthy appearing, no acute distress, well developed and alert Orientation/consciousness: patient oriented x3 HEENT Head: Yes normal to inspection Eyes General: appearance normal, both eyes and all related structures Neck Neck: Yes normal visual inspection Thyroid: Thyroid normal Chest Chest palpation & inspection: normal inspection of the chest and other (no puckering, dimpling, peau de orange, retraction, discharge, masses) Breast/axilla inspection: normal inspection of the breasts Breast/axilla palpation: normal palpation of the breasts Resp Effort & Inspection: normal respiratory effort GI Inspection: Yes normal to inspection Palpation (GI): Soft to palpation Rectal Exam - Female: visual inspection normal, normal sphincter tone and Abnormal stool present (Constipated firmed stool in rectum) Other: Patient rubbing and holding the lower left portion of her abdomen General: Yes bladder normal to palpation External Female Exam: normal external appearance and normal appearance of the urethra Speculum Exam - Vagina: normal appearance of the vagina, normal palpation, normal vaginal discharge and other (Firm structure noted in posterior vaginal wall consistent w/hard stool) Speculum Exam - Cervix: Cervix absent (Vaginal cuff no lesions or nodules) Bimanual exam- vagina & uterus: normal bimanual exam, normal palpation, bladder normal to palpation and uterus absent Bimanual Exam- Adnexa, other: no masses Skin General skin exam: no rashes or lesions noted Rashes: no rashes Neuro General: patient oriented x3 Cognition (Neuro): normal cognition Extrem General: Yes normal to inspection Psych Attitude: cooperative Thought process: Normal thought process present Assessment & Plan Assessment & Plan (1) Encounter for well woman exam with routine gynecological exam: Code(s): Z01.419 - Encounter for gynecological examination (general) (routine) without abnormal findings Category: Medical Plan Discussed: Current recommendations for pap smears per ASCCP guidelines. Breast awareness, periodic self breast exams and yearly mammogram. Plan pelvic ultrasound and follow up in the office pending results. Maintain a healthy lifestyle, well balanced diet including Calcium 1,200 mg and Vitamin D 600 IU daily, and routine exercise as tolerated. I recommend she see her primary care for her ongoing discomfort and for coordination of services, keep follow up with Urology on 01/03/2024, additionally to see Dr. Tillman her oncologist to review the CT scan results and coordinate a plan of care. Patient verbalizes understanding and agrees to the plan of care. She was given opportunity to ask questions and all questions were answered to the best of my ability. RTO in 1 year for annual visual aid expert exam. This note is constructed using voice recognition software. While every effort has been made to ensure accuracy, geophysical operator errors may have been included. Orders: Orders US pelvic and transvaginal Today R10.2 - Pelvic and perineal pain Coding Level of Care Code Est Pt Prev Care 40-64y(71640) Diagnoses Encounter for well woman exam with routine gynecological exam Z01.419
[2023-12-21 09:55] VITALS: BP 116/70; BMI 27.3
== END 2023-12-21 10:48 | disposition home or self-care (01) ==
PROVIDERS: PCP Internal Medicine Geriatric Medicine; Visit Provider Advanced Practice Midwife
DX: Z01.419 Encounter for gynecological examination (general) (routine) without abnormal findings (principal)
CPT/HCPCS: 99396

== ENCOUNTER → 2023-12-21 09:49 | Outpatient (BNVA) | payer OTHER, SELFPAY | PROVIDERS: PCP Internal Medicine Geriatric Medicine; Visit Provider Advanced Practice Midwife | DX: Z01.419 Encounter for gynecological examination (general) (routine) without abnormal findings (principal) | CPT/HCPCS: 99396 ==

== ENCOUNTER 2023-12-23 13:50 | Outpatient (REF) | payer OTHER, SELFPAY ==
--- NOTE | ~2023-12-23 | US_ITS ---
EXAMINATION: US PELVIS CLINICAL INFORMATION: Pelvic pain. History of hysterectomy. COMPARISON: CT abdomen/pelvis 12/02/2023. TECHNIQUE: Ultrasound of the pelvis is performed using both transabdominal and transvaginal transducers along with Doppler. Transvaginal imaging is performed due to inadequate visualization transabdominally. FINDINGS/ US/US pelvic and transvaginal IMPRESSION: Limited evaluation due to body habitus and shadowing from overlying bowel gas. Hysterectomy. The ovaries are not seen. No discrete large pelvic mass or significant amount of free fluid. Electronically signed by: Kristine Lozano MD 12/23/2023 07:27 PM EDT
== END 2023-12-23 13:51 | disposition home or self-care (01) ==
LOC: HO.US 13:50
PROVIDERS: PCP Internal Medicine Geriatric Medicine; Visit Provider Advanced Practice Midwife
DX: R10.2 Pelvic and perineal pain (principal)
CPT/HCPCS: 76830; 76856

== ENCOUNTER → 2024-01-03 12:26 | Outpatient (BNV) | payer OTHER, SELFPAY | PROVIDERS: PCP Internal Medicine Geriatric Medicine; Visit Provider Radiology Diagnostic Radiology | DX: M54.42 Lumbago with sciatica, left side (principal) | CPT/HCPCS: 72148 ==

== ENCOUNTER 2024-01-03 12:50 | Outpatient (REF) | payer OTHER, SELFPAY | END 2024-01-03 12:51 | disposition home or self-care (01) | LOC: HO.MRI 12:50 | PROVIDERS: PCP Internal Medicine Geriatric Medicine; Visit Provider Nurse Practitioner Primary Care | DX: M47.817 Spondylosis without myelopathy or radiculopathy, lumbosacral region (principal); M54.42 Lumbago with sciatica, left side; G89.29 Other chronic pain; R35.0 Frequency of micturition | CPT/HCPCS: 72148; 81003; 99202 ==

== ENCOUNTER 2024-01-03 13:31 | Outpatient (AMB) | payer OTHER, SELFPAY ==
--- NOTE | 2024-01-03 13:44 | A.OFFVIS_ITS ---
Intake Visit Reasons: phleboliths on xray Intake Note: Patient is present for PHELBOLITHS ON XRAY Urology Medication:NONE Antibiotic Allergy:TUBERCULIN Blood Thinner:ASPIRIN Checker Product Design Required: Yes Checker Product Design Name: ANA ROSA LEALOLAMIDE Allergies tuberculin, purified protein deriva [TB TEST] Allergy (Severe, Verified 01/03/24 14:30) ANGIOEDEMA liquid of tb test Allergy (Severe, Uncoded 01/03/24 14:30) Rash Medication List - Last Reconciled 01/03/24 by SILVESTRE PalaciosP- albuterol sulfate 90 mcg/actuation 2 puffs PO Q4-6H PRN amlodipine 5 mg PO DAILY aspirin 81 mg PO DAILY atorvastatin 1 tab PO DAILY dulaglutide (Trulicity) 0.75 mg subcut QWEEK duloxetine 30 mg PO DAILY fluticasone propionate 50 mcg/actuation 2 sprays intranasal DAILY fluticasone propionate 220 mcg/actuation (Flovent HFA) 2 puffs inhalation BID gabapentin 100 mg PO TID hydroxyzine pamoate 1 cap PO BID ketoconazole 2% 1 appl topical DAILY lamotrigine 25 mg PO DAILY lamotrigine ER 25 mg PO DAILY levothyroxine 88 mcg PO DAILY loratadine 1 tab PO DAILY metformin 1 tab PO QAM metoprolol tartrate 25 mg PO BID montelukast (Singulair) 1 tab PO BEDTIME omega 8-mbm-byr-fish oil 300-1,000 mg 1 cap PO DAILY omeprazole 1 cap PO DAILY trazodone 50 mg PO BEDTIME zaleplon 10 mg PO BEDTIME PRN HPI Comments Details: Pippa is Mosotho-speaking 63-year-old female patient of Dr. Valentino. She has a PMH of osteoarthritis of bilateral hips, urinary frequency, depression, anxiety, diabetes, asthma, fibromyalgia, and atypical lobular hyperplasia of breast. She presents to the office today as a new patient for ongoing lower urinary tract symptoms she has been experiencing as well as phleboliths. In discussion with the patient today she reports having followed up with her PCP for ongoing issues she has been experiencing at which time a CT was ordered and diagnosis upon imaging was bladder cancer. However, in discussion with the patient today she reports no previous history of bladder cancer. She does discuss her anxiety in regards to this diagnosis. She denies ever being diagnosed with bladder cancer and or previously following up with Urology. However, she is adamant that she would like workup for bladder cancer. Recent CT results reviewed with the patient today. No nephrolithiasis or hydronephrosis. No discrete focal renal parenchymal lesions. Numerous calcifications are noted associated to the right gonadal vasculature that are immediately adjacent to the right ureter limiting evaluation of ureteric calculi however within limitations no definite ureteric calculi seen and there is no hydroureter. The bladder is decompressed limiting evaluation. She reports noting ongoing issues with urinary frequency. In office urinalysis results reviewed with the patient today. Negative leukocytes, negative nitrates, negative microscopic hematuria. We discussed further treatment options for urinary frequency. We discussed bladder triggers/irritants. We discussed potential for error in charting when ordering imaging however patient reports a previous history of cancer and her anxiety about health. She otherwise denies incontinence, nocturia, hematuria, dysuria, foul smelling urine, changes to urinary stream, flank pain, fever, and or chills. PFSH Medical History Osteoarthritis, hip, bilateral Frequency of urination Hernia Depression Anxiety Heart disease Diabetes Asthma Fibromyalgia Atypical lobular hyperplasia (ALH) of breast Surgical History Hx of cardiac cath H/O rectal polypectomy History of carpal tunnel surgery Hx of toe surgery Hx of right knee surgery Hx of tonsillectomy History of appendectomy Hx of cholecystectomy H/O: hysterectomy Hx of section Family History Brother Heart disease Asthma Mother Family history of esophageal cancer Hypertension Asthma Lung cancer Father History of prostate cancer Asthma Paternal Aunt No problems noted. Paternal Grandfather Liver cancer Colon cancer Family/Other Stomach cancer Maternal Aunt Breast cancer Social History Household Members: None Housing: Apartment Are you a primary home care manager rn to a significant other at home: No Do you presently have visiting nurse or other home services: No Alcohol intake: former Patient Tobacco Use Status: Never used Tobacco service: No Current occupational status: disabled Female Reproductive History Menstrual Age of Menarche: 15 Review of Systems Const All systems reviewed & are unremarkable except as noted in HPI and below Physical Exam Const General: cooperative, healthy appearing, comfortable, no acute distress, well developed, alert and awake Orientation/consciousness: patient oriented x3 Limitations: no limitations HEENT Head: Yes normal to inspection, Yes normocephalic and Yes atraumatic Ears: hearing grossly normal bilaterally Eyes General: appearance normal, both eyes and all related structures Neck Neck: Yes normal visual inspection and Yes trachea midline Chest Chest palpation & inspection: normal inspection of the chest Resp Effort & Inspection: normal respiratory effort and able to speak in complete sentences Cardio Rate: regular rate GI Inspection: Yes normal to inspection General: Yes no CVA tenderness Back/Spine/Pelvis Back: no CVA tenderness Skin General skin exam: no rashes or lesions noted Neuro General: patient oriented x3 Extrem General: Yes normal to inspection Psych Appearance: grossly normal and well kempt Mental Status: mental status grossly normal Speech and movement: Normal speech and movement present and Clear speech present Affect: normal affect Attitude: cooperative Thought process: Normal thought process present Thought content: Normal thought content present Insight: Fair insight present (Psych) Judgement: Fair judgement present (Psych) Results AMB Urinalysis, Automated UA Leukoctes 0 Joe/uL Last Edit by JANAE Solomon on 01/03/24 13:55 UA Nitrite Negative Last Edit by JANAE Solomon on 01/03/24 13:55 UA Urobilinogen 0.2 mg/dL Last Edit by JANAE Solomon on 01/03/24 13:5 5 UA Protein 0 mg/dL Last Edit by JANAE Solomon on 01/03/24 13:55 UA pH 5.5 Last Edit by JANAE Solomon on 01/03/24 13:55 UA Blood 0 Chepe/uL Last Edit by JANAE Solomon on 01/03/24 13:55 UA Specific [place] 1.020 Last Edit by JANAE Solomon on 01/03/24 13: 55 UA Ketone Negative Last Edit by JANAE Solomon on 01/03/24 13:55 UA Bilirubin 0 mg/dL Last Edit by Trino Alvarez CCM on 01/03/24 13:55 UA Glucose 0 mg/dL Last Edit by JANAE Solomon on 01/03/24 13:55 Results Reviewed Results Reviewed: Laboratory Last Values Urine pH (Auto) 5.5 01/03/24 13:54 Specific [place] (Auto) 1.020 01/03/24 13:54 Urine Protein (Auto) 0 mg/dL 01/03/24 13:54 Glucose (UA)(Auto) 0 mg/dL 01/03/24 13:54 Urine Ketones (Auto) Negative 01/03/24 13:54 Urine Blood (Auto) 0 Chepe/uL 01/03/24 13:54 Urine Nitrite (Auto) Negative 01/03/24 13:54 Urine Bilirubin (Auto) 0 mg/dL 01/03/24 13:54 Urine Urobilinogen (Auto) 0.2 mg/dL 01/03/24 13:54 Leukocyte Esterase (Auto) 0 Joe/uL 01/03/24 13:54 Assessment & Plan Assessment & Plan (1) Frequency of urination: Code(s): R35.0 - Frequency of micturition Category: Medical Plan In office urinalysis results with the patient today; as noted above; will send for urine cytology. We discussed at length potential causes of urinary frequency. Discussed bladder triggers/irritants. Discussed and reassurance provided regarding charted history of bladder cancer and patient denies ever following up with Urology and or having cystoscopy to diagnose bladder cancer. Despite reassurance provided she would like to move forward with cystoscopy to ensure there is no abnormalities within the bladder. Discussed further treatment options of urinary frequency however patient does not wish to undergo further treatment options for urinary frequency at this time. Will schedule for in office cystoscopy Follow-up per doctor's orders; or sooner with any issues, concerns, and or questions. Orders: Orders Urine Cytology Today N39.0 - Urinary tract infection, site not specified AMB Urinalysis Automated Today Z13.9 - Encounter for screening, unspecified Patient Instructions: The patient had an opportunity to ask questions regarding the treatment plan. All questions were answered. Physical exam, labs, and imaging were discussed and reviewed in detail. As well as risks, benefits, and discussion of treatment choices. No major barriers to understanding were identified. The patient expressed understanding and agreement with the above treatment plan. The patient was made aware they should contact our office by phone for worsening of their current condition, the appearance of new symptoms, or with any question s or concerns. Compliance is encouraged with any medications and follow up testing that is ordered. It is a privilege to be allowed the opportunity to participate in? your urological care.? Again, if you have any questions or concerns If you have any questions or concerns please do not hesitate to contact me. The office is [phone]. This note is constructed using voice recognition software. While every effort has been made to ensure accuracy community arts worker errors may have been included. Yours sincerely, ANISH Palacios Coding Level of Care Code New Pt Level 3 (77180) Diagnoses Frequency of urination R35.0
== END 2024-01-03 14:31 | disposition home or self-care (01) ==
LOC: HO.HUSH 13:31
PROVIDERS: PCP Internal Medicine Geriatric Medicine; Visit Provider Nurse Practitioner Family
DX: Z13.9 Encounter for screening, unspecified (principal); R35.0 Frequency of micturition
CPT/HCPCS: 99203

== ENCOUNTER 2024-01-03 16:44 | Outpatient (REF) | payer OTHER, SELFPAY ==
[2024-01-03 16:46] LABS: Urine Cytology See Pathology rpt
== END 2024-01-03 16:45 | disposition home or self-care (01) ==
LOC: HO.LNP 16:44
PROVIDERS: Visit Provider Nurse Practitioner Family
DX: N39.0 Urinary tract infection, site not specified (principal)
CPT/HCPCS: 88112

== ENCOUNTER 2024-01-25 13:54 | Outpatient (AMB) | payer OTHER, SELFPAY ==
--- NOTE | 2024-01-25 10:34 | MHC.OFFVIS ---
Intake Visit Reasons: cysto(Urinary Frequency) Intake Note: Patient is Present for Cystoscopy Urology Med: None Antibiotic Allergy: None Blood Thinner: None URO- G Disposable Cystoscope lot: [id number] exp:06/08/2026 Railroad Commissioner Required: No Allergies tuberculin, purified protein deriva [TB TEST] Allergy (Severe, Verified 01/25/24 10:35) ANGIOEDEMA liquid of tb test Allergy (Severe, Uncoded 01/25/24 10:35) Rash HPI Comments Details: Pippa is a pleasant Yi-speaking female. She is a patient of Dr. Valentino. She is seen for the following urologic conditions - urinary frequency and urgency Here for check cystoscopy Based on CT with question of reported history of bladder cancer Patient denies such history Noted with urethral syndrome and narrowing at time of cystoscopy Dilated with blue meatal dilator Six-month follow-up nurse-practitioner [facility] Medical History Osteoarthritis, hip, bilateral Frequency of urination Hernia Depression Anxiety Heart disease Diabetes Asthma Fibromyalgia Atypical lobular hyperplasia (ALH) of breast Surgical History Hx of cardiac cath H/O rectal polypectomy History of carpal tunnel surgery Hx of toe surgery Hx of right knee surgery Hx of tonsillectomy History of appendectomy Hx of cholecystectomy H/O: hysterectomy Hx of section Family History Brother Heart disease Asthma Mother Family history of esophageal cancer Hypertension Asthma Lung cancer Father History of prostate cancer Asthma Paternal Aunt No problems noted. Paternal Grandfather Liver cancer Colon cancer Family/Other Stomach cancer Maternal Aunt Breast cancer Social History Household Members: None Housing: Apartment Are you a primary career development associate to a significant other at home: No Do you presently have visiting nurse or other home services: No Alcohol intake: former Patient Tobacco Use Status: Never used Tobacco service: No Current occupational status: disabled Female Reproductive History Menstrual Age of Menarche: 15 Review of Systems Const Denies chills and Denies fever(s) Card Reports no additional complaints and Denies syncope Resp Denies cough GI Denies abdominal pain and Denies heartburn Reports as per HPI and Denies change in libido Neuro Denies syncope Psych Denies change in libido Endo Denies change in libido Physical Exam Const General: cooperative, healthy appearing, comfortable and no acute distress Orientation/consciousness: patient oriented x3 HEENT Face and sinus: Yes normal facial exam Mouth: moist mucous membranes Neck Neck: Yes normal visual inspection, Yes full ROM and Yes trachea midline Chest Chest palpation & inspection: normal inspection of the chest Resp Effort & Inspection: normal respiratory effort, able to speak in complete sentences and no respiratory distress GI Inspection: Yes normal to inspection Back/Spine/Pelvis Cervical Spine: normal cervical lordosis Thoracic/Lumbar Spine: thoracic and lumbar spine normal to inspection Skin General skin exam: no rashes or lesions noted Neuro General: patient oriented x3, gait normal, tone normal and moves all extremities Extrem General: Yes normal to inspection and Yes capillary refill normal Office Procedures Cystoscopy Consent Discussed risk and benefit or proposed procedure with the patient. Information consent for procedure given to the patient. Discussed technical aspects, risks, benefits and alternatives in full. Addressed all of the patient's questions and concerns regarding the procedure. The patient demonstrated knowledge and understanding. They wish to proceed with this procedure. Preparation The patient was prepped in the usual manner. A electrician wiring was present and in the room. Genitalia was prepped with betadine solution in a sterile manner. Lidocaine Jelly 2% was placed into the urethra and 16Fr flexible Olympus cystoscope was inserted into the meatus after adequate lubrication. Procedure Meatus narrowed. Required dilatation with blue dilator Urethra normal Bladder examination with retroflexion of cystoscope Bladder Orifices normal shape and position Trigone normal Bladder Capacity normal Trabeculations mild Cellule Formation - Diverticulum Formation - Mucosal Erythema - Bladder Tumor - 50930-[id number] DISPOSABLE SCOPE URO-G FLEXIBLE SCOPE Procedure code (CPT) selection complete Office Meds lidocaine HCl 2 % mucosal jelly in applicator Performing Provider: Lalo Chau MD [facility] Administered by: Lalo Chau MD on 01/25/24 16:14 Dose Route Admin Location Dispensed Lot Number Expiration Date [facility] Sales Representative Printing 10 mL intra-urethral 10 mL Results AMB Urinalysis, Automated UA Leukoctes 0 Joe/uL Last Edit by JANAE Solomon on 01/25/24 14:11 UA Nitrite Last Edit by JANAE Solomon on 01/25/24 14:11 UA Urobilinogen 0.2 mg/dL Last Edit by JANAE Solomon on 01/25/24 14:11 UA Protein 0 mg/dL Last Edit by Trino Alvarez CCM on 01/25/24 14:11 UA pH 6.0 Last Edit by Trino Alvarez [facility] on 01/25/24 14:11 UA Blood 0 Chepe/uL Last Edit by Trino Alvarez [facility] on 01/25/24 14:11 UA Specific [place] 1.025 Last Edit by Trino Alvarez [facility] on 01/25/24 14:11 UA Ketone Negative Last Edit by Trino Alvarez [facility] on 01/25/24 14:11 UA Bilirubin 0 mg/dL Last Edit by Trino Alvarez [facility] on 01/25/24 14:11 UA Glucose 0 mg/dL Last Edit by Trino Alvarez [facility] on 01/25/24 14:11 Results Reviewed Results Reviewed: Laboratory Last Values Urine pH (Auto) 6.0 01/25/24 14:10 Specific [place] (Auto) 1.025 01/25/24 14:10 Urine Protein (Auto) 0 mg/dL 01/25/24 14:10 Glucose (UA)(Auto) 0 mg/dL 01/25/24 14:10 Urine Ketones (Auto) Negative 01/25/24 14:10 Urine Blood (Auto) 0 Chepe/uL 01/25/24 14:10 Urine Bilirubin (Auto) 0 mg/dL 01/25/24 14:10 Urine Urobilinogen (Auto) 0.2 mg/dL 01/25/24 14:10 Leukocyte Esterase (Auto) 0 Joe/uL 01/25/24 14:10 Assessment & Plan Assessment & Plan (1) Microscopic hematuria: Code(s): R31.29 - Other microscopic hematuria Category: Medical Plan Six-month follow-up nurse-practitioner Orders: Orders AMB Urinalysis Automated Today Z13.9 - Encounter for screening, unspecified AMB Cystoscopy Today R35.0 - Frequency of micturition Medications: New lidocaine HCl 2% 10 mL intra-urethral ONCE 10 mL 0RF R35.0 - Frequency of micturition Patient Instructions: Imaging studies, laboratory and physical exam results were discussed and reviewed in detail. No major barriers to patient understanding were identified. An opportunity to ask questions regarding the treatment plan was provided. All questions were answered. The patient expressed understanding and agreement with the above treatment plan. The patient is aware they should contact our office by phone for worsening of their current condition or the appearance of new urologic symptoms. Compliance is encouraged with any medications and followup testing that is ordered. It is a privilege to participate in the urologic care of your patient. If you have any questions or concerns regarding treatment for the above conditions, or other urologic issues, please do not hesitate to contact me. The office telephone contact is [phone]. This note is constructed using voice recognition software. While every effort has been made to ensure accuracy business systems consultant errors may have been included. Yours sincerely, Dr Lalo Chau MD, [facility] - Urology Providers of Expert, Compassionate Care for the Genitourinary System Coding Level of Care Code Est Pt Level 3 (57517) Diagnoses Microscopic hematuria R31.29 CPT Codes Cystoscopy - CPT: 56400-[id number] ([id number])
== END 2024-01-25 14:30 | disposition home or self-care (01) ==
PROVIDERS: PCP Internal Medicine Geriatric Medicine; Visit Provider Urology
DX: R31.29 Other microscopic hematuria (principal); R35.0 Frequency of micturition; Z85.51 Personal history of malignant neoplasm of bladder; Z13.9 Encounter for screening, unspecified
CPT/HCPCS: 52000; 99213

== ENCOUNTER → 2024-01-25 13:54 | Outpatient (BNVA) | payer OTHER, SELFPAY | PROVIDERS: PCP Internal Medicine Geriatric Medicine; Visit Provider Urology | DX: R31.29 Other microscopic hematuria (principal); R35.0 Frequency of micturition | CPT/HCPCS: 52000; 81003; 99212 ==

== ENCOUNTER 2024-02-10 07:07 | Outpatient (REF) | payer OTHER, SELFPAY ==
[2024-02-10] MEDS: iohexoL 350 MG/ML 100 ML INFUS..BTL IV (08:19)
[2024-02-14 08:00] LABS: Creatinine POC 0.7 mg/dL (0.5-1.4); GFR POC > 60
== END 2024-02-10 07:08 | disposition home or self-care (01) ==
LOC: HO.CT 07:07
PROVIDERS: PCP Internal Medicine Geriatric Medicine; Visit Provider Internal Medicine Medical Oncology
DX: R91.8 Other nonspecific abnormal finding of lung field (principal)
CPT/HCPCS: 71260; 82565; Q9967

== ENCOUNTER → 2024-02-10 07:09 | Outpatient (BNV) | payer OTHER, SELFPAY | PROVIDERS: PCP Internal Medicine Geriatric Medicine; Visit Provider Radiology Diagnostic Radiology | DX: R91.1 Solitary pulmonary nodule (principal) | CPT/HCPCS: 71260 ==

== ENCOUNTER 2024-03-07 15:51 | Outpatient (AMB) | payer OTHER, SELFPAY ==
[2024-03-07 15:56] VITALS: BP 110/70; BMI 26.0
--- NOTE | 2024-03-07 15:56 | A.OFFVIS_ITS ---
Vital Signs 03/07/24 15:56 03/07/24 16:01 Height 5 ft Weight 133 lb BMI 26.0 26.0 BP 110/70 Intake Visit Reasons: Ultrasound Results Stock Hanger Required: Yes Stock Hanger Language: Counterintelligence Specialist Services: Stock Hanger Present (in person) Stock Hanger Name: Norah JAUREGUI Information Interpreted: non-clinical & clinical Supervisor Toy Assembly: Supervisor Toy Assembly Present Allergies tuberculin, purified protein deriva [TB TEST] Allergy (Severe, Verified 01/25/24 10:35) ANGIOEDEMA liquid of tb test Allergy (Severe, Uncoded 01/25/24 10:35) Rash Is last menstrual period known: Yes HPI Comments Details: Patient is here today for test results of a pelvic ultrasound. History of left- sided pelvic and hip pain, she reports is still present along with low back pain, along with herniated disc problems. She reports she was told she may need a hip replacement. History of hysterectomy. [facility] Medical History Osteoarthritis, hip, bilateral Frequency of urination Hernia Depression Anxiety Heart disease Diabetes Asthma Fibromyalgia Atypical lobular hyperplasia (ALH) of breast Surgical History Hx of cardiac cath H/O rectal polypectomy History of carpal tunnel surgery Hx of toe surgery Hx of right knee surgery Hx of tonsillectomy History of appendectomy Hx of cholecystectomy H/O: hysterectomy Hx of section Family History Brother Heart disease Asthma Mother Family history of esophageal cancer Hypertension Asthma Lung cancer Father History of prostate cancer Asthma Paternal Aunt No problems noted. Paternal Grandfather Liver cancer Colon cancer Family/Other Stomach cancer Maternal Aunt Breast cancer Social History Household Members: None Housing: Apartment Are you a primary manager home healthcare to a significant other at home: No Do you presently have visiting nurse or other home services: No Alcohol intake: former Patient Tobacco Use Status: Never used Tobacco service: No Current occupational status: disabled Female Reproductive History Menstrual Age of Menarche: 15 Review of Systems Const All systems reviewed & are unremarkable except as noted in HPI and below Endo Reports no additional complaints Physical Exam Vital Signs: Last Vital Signs BP 110/70 03/07/24 15:56 BMI result Body Mass Index 26.0 Const General: cooperative, healthy appearing and no acute distress Psych Appearance: well kempt Attitude: cooperative Thought process: Normal thought process present Results Reviewed Results Reviewed: [address] [address] Ultrasound Report Signed Patient: Pippa Camilo I MR#: [id number] : 1960 Acct:[id number] Age/Sex: 63 / F ADM Date: 12/23/23 Loc: HO.US Attending Dr: Cee Trinidad CNM Ordering Physician: Cee Trinidad CNM Date of Service: 12/23/23 Procedure(s): US pelvic and transvaginal Accession Number(s): [id number] cc: Cee Trinidad CNM; Name,Edmund HERNANDEZ~ EXAMINATION: US PELVIS CLINICAL INFORMATION: Pelvic pain. History of hysterectomy. COMPARISON: CT abdomen/pelvis 12/02/2023. TECHNIQUE: Ultrasound of the pelvis is performed using both transabdominal and transvaginal transducers along with Doppler. Transvaginal imaging is performed due to inadequate visualization transabdominally. FINDINGS/ US/US pelvic and transvaginal IMPRESSION: Limited evaluation due to body habitus and shadowing from overlying bowel gas. Hysterectomy. The ovaries are not seen. No discrete large pelvic mass or significant amount of free fluid. Electronically signed by: Kristine Lozano MD 12/23/2023 07:27 PM EDT Dictated By: Kristnie Lozano Signed By: <Electronically signed by Kristine Lozano in OV> 12/23/23 192 DD/ 1407 TD/TT: 12/23/23 1414 Swimming Teacher: Assessment & Plan Assessment & Plan (1) Encounter to discuss test results: Code(s): Z71.2 - Person consulting for explanation of examination or test findings Plan Discussed: Ultrasound findings-limited exam. Most likely her pain is originating from the back and hip, to follow up with her orthopedic surgeon for care. Annual exam as scheduled 12/17/2024. The patient expressed understanding and agreement with the plan of care. All of her questions and concerns were addressed to the best of my ability. This note is constructed using voice recognition software. While every effort has been made to ensure accuracy, spool winder errors may have been included. Coding Level of Care Code Est Pt Level 3 (65570) Diagnoses Encounter to discuss test results Z71.2
[2024-03-07 16:01] VITALS: BMI 26.0
--- NOTE | 2024-03-07 16:01 | MHC.OFFVIS ---
Vital Signs 03/07/24 15:56 Height 5 ft Weight 133 lb BMI 26.0 BP 110/70 Intake Visit Reasons: Ultrasound Results Allergies tuberculin, purified protein deriva [TB TEST] Allergy (Severe, Verified 01/25/24 10:35) ANGIOEDEMA liquid of tb test Allergy (Severe, Uncoded 01/25/24 10:35) Rash PFSH Medical History Osteoarthritis, hip, bilateral Frequency of urination Hernia Depression Anxiety Heart disease Diabetes Asthma Fibromyalgia Atypical lobular hyperplasia (ALH) of breast Surgical History Hx of cardiac cath H/O rectal polypectomy History of carpal tunnel surgery Hx of toe surgery Hx of right knee surgery Hx of tonsillectomy History of appendectomy Hx of cholecystectomy H/O: hysterectomy Hx of section Family History Brother Heart disease Asthma Mother Family history of esophageal cancer Hypertension Asthma Lung cancer Father History of prostate cancer Asthma Paternal Aunt No problems noted. Paternal Grandfather Liver cancer Colon cancer Family/Other Stomach cancer Maternal Aunt Breast cancer Social History Household Members: None Housing: Apartment Are you a primary critical care unit nurse to a significant other at home: No Do you presently have visiting nurse or other home services: No Alcohol intake: former Patient Tobacco Use Status: Never used Tobacco service: No Current occupational status: disabled Female Reproductive History Menstrual Age of Menarche: 15 Physical Exam Vital Signs: Last Vital Signs BP 110/70 03/07/24 15:56 BMI result Body Mass Index 26.0 Quality Reporting (2020) Adult ([facility] 138/2/) Body Mass Index: 26.0 Coding
== END 2024-03-07 16:25 | disposition home or self-care (01) ==
PROVIDERS: PCP Internal Medicine Geriatric Medicine; Visit Provider Obstetrics & Gynecology
DX: Z71.2 Person consulting for explanation of examination or test findings (principal)
CPT/HCPCS: 99213

== ENCOUNTER → 2024-03-07 15:51 | Outpatient (BNVA) | payer OTHER, SELFPAY | PROVIDERS: PCP Internal Medicine Geriatric Medicine; Visit Provider Obstetrics & Gynecology | DX: Z71.2 Person consulting for explanation of examination or test findings (principal) | CPT/HCPCS: 99212 ==

== ENCOUNTER 2024-03-26 11:23 | Outpatient (AMB) | payer OTHER, SELFPAY ==
[2024-03-26 11:35] VITALS: BMI 26.0
--- NOTE | 2024-03-26 11:35 | HO.SPINEOV ---
Vital Signs 03/26/24 11:35 Height 5 ft Weight 133 lb BMI 26.0 Intake Visit Reasons: chronic bilateral low back pain Intake Note: Ms. Renetta Dean is here today c/o Low back pain. Forming Department Supervisor Required: Yes Forming Department Supervisor Name: Tablet Allergies tuberculin, purified protein deriva [TB TEST] Allergy (Severe, Verified 01/25/24 10:35) ANGIOEDEMA liquid of tb test Allergy (Severe, Uncoded 01/25/24 10:35) Rash Physical Exam Vital Signs: BMI result Body Mass Index 26.0 Assessment & Plan Assessment & Plan (1) Back pain: Code(s): M54.9 - Dorsalgia, unspecified Category: Medical Plan Dear Isabel, Thank you for referring Mrs Renetta Dean to our office today. She is a 63-year-old Vietnamese-speaking female. This visit was done with the help of safety and health manager [id number]. The patient reports that she has had a history of back problems for many years dating back to a herniated disc she had after an accident in [place]. She more recently had an accident in 2023 and her back pain has increased significantly. She has also had issues with left hip arthritis and she has been told she needs a hip replacement but they are waiting on the patient to decide when she wishes to have it done. She has been having a lot of trouble standing walking moving around because of the back pain. It localizes itself across the whole lumbar spine but does radiate out laterally toward the SI joints. No specific lumbar radicular pain reported. No cauda equina symptoms. She did undergo physical therapy after the accident but it did not help much at all. She has been trying Celebrex, muscle relaxers, tramadol and gabapentin. PMH: History of diabetes, she has been told her A1c is pretty good and well managed but she does not remember the number. She is a history of breast cancer which is in remission, lung nodules which are being followed, asthma, left ankle surgery, tonsillectomy, C-sections, hysterectomy, cholecystectomy, appendectomy, hernia surgery, right meniscus Social hx: She has not smoke, drink use any recreational drugs Medications: Albuterol, amlodipine, baby aspirin, atorvastatin, duloxetine, Flonase, hydroxyzine, ketoconazole, lamotrigine, levothyroxine, loratadine, metformin, metoprolol, Singulair, omeprazole, fish oil, trazodone, Trulicity, zaleplon Allergies: Tuberculosis skin testing agent Physical exam: Is awake alert oriented, slow to stand up, she limps on her left leg, has difficulty getting up on the examining table. Any attempts at internal and external rotation for hip or SI joint testing generates tremendous amounts of pain. I was unable to do any more advanced testing because of discomfort. Motor exam is full, reflexes normal. Imaging review: Patient has lumbar MRI done at [facility] showing very mild degenerative disc disease with normal alignment, no evidence of disc herniation, fracture, subluxation, central stenosis or nerve impingement Impression: This is a 63-year-old diabetic female presents to the office today for evaluation of a back pain which is worsened after an accident this year. She also has concomitant hip disease on the left side which has made walking difficult. I am wondering if the combination of factors after the accident and the hip arthritis are aggravating everything. There is also the question of possible underlying SI joint inflammation after the accident as well. Thankfully her lumbar MRI shows just very mild degenerative changes so there is nothing that we need to operate on. She did have injections over at the [facility] and she had a good response to what sounds like an anterior compartment hip injection. A subsequent injection in the buttock area did not provide her any relief. She has not been back yet to follow up for another injection. I think it would be worth considering getting an SI joint injection. I will check to see if they already did that and what the response was. Right now I do not think we have any surgery to fix the pain she is having. She is going to look into getting her hip fixed in the interim. I will call her once I have the results of the [facility] injections. Thank you for allowing us to care for your patient. The total time spent with this visit with this patient was 45 minutes reviewing history, physical exam, lumbar imaging review, and implementation of treatment plan or further diagnostic testing Kimo Becerril MD,PhD [facility] Coding Level of Care Code New Pt Level 4 (80266) Diagnoses Back pain M54.9
--- OUTSIDE RECORDS SUMMARY | 2024-03-26 16:15 | XMS_ITS | Encounter Summary ---
Author Organization [facility] Address [address] [place] [address] Care Team Providers Care Media Relations Intern Name Role Phone Name, Edmund HERNANDEZ Primary Care Provider Unavailabl e Encounter Details Date Type Department Care Team Description 11/15/2012 Business Doc Medical Records [address] [place] [id number] Abstract, Provider Social History Tobacco Use Types Packs/Day Years Used Date Smoking Tobacco: Never Smokeless Tobacco: Never Alcohol Use Standard Drinks/Week Comments No 0 (1 standard drink = 0.6 oz pur e alcohol) Sex Assigned at Date Recorded Not on file documented as of this encounter Plan of Treatment Not on file documented as of this encounter Visit Diagnoses Not on filedocumented in this encounter Care Teams Media Relations Intern Relationship Specialty Start Date End Date Name, MD Edmund PCP - General Internal Medicine 01/28/11 documented as of this encounter
--- OUTSIDE RECORDS SUMMARY | 2024-03-26 16:15 | XMS_ITS | Encounter Summary ---
Author Organization [facility] Address [address] [place] [address] Care Team Providers Care Line Installation Supervisor Name Role Phone Edmund Valentino MD Primary Care Provider Unavailabl e Encounter Details Date Type Department Care Team Description 10/23/2014 Refill Adult Medicine [address] [address] Name, MD Edmund Social History Tobacco Use Types Packs/Day Years [...] on filedocumented in this encounter Care Teams Line Installation Supervisor Relationship Specialty Start Date End Date Edmund Valentino MD PCP - General Internal Medicine 01/28/11 documented as of this encounter
--- OUTSIDE RECORDS SUMMARY | 2024-03-26 16:15 | XMS_ITS | Encounter Summary ---
Author Organization [facility] Address [address] [place] [address] Care Team Providers Care Barge Pilot Name Role Phone Name, Edmund HERNANDEZ Primary Care Provider Unavailabl e Encounter Details Date Type Department Care Team Description 09/20/2014 Hospital Medical Records [address] [place] [address] Karsten Christian MD [address] [place] [address] Social History Tobacco Use Types Packs/Day Years [...] on filedocumented in this encounter Care Teams Barge Pilot Relationship Specialty Start Date End Date Name, MD Edmund PCP - General Internal Medicine 01/28/11 documented as of this encounter
--- OUTSIDE RECORDS SUMMARY | 2024-03-26 16:15 | XMS_ITS | Encounter Summary ---
Author Organization [facility] Address [address] [place] [address] Care Team Providers Care Trauma Surgeon Name Role Phone Community, Pcp Primary Care Provider Unavailabl e Edmund Valentino MD Primary Care Provider Unavailabl e Reason for Visit * Reason Onset Date Comments Orders Call 01/06/2011 Encounter Details Date Type Department Care Team Description 01/06/2011 Telephone Adult Medicine [address] [address] Name, MD Edmund Orders Call Social History Tobacco Use Types Packs/Day Years Used Date Smoking Tobacco: Former Alcohol Use Standard Drinks/Week Comments No 0 (1 standard drink = 0.6 oz pur e alcohol) Sex Assigned at Date Recorded Not on file documented as of this encounter Miscellaneous Notes * Telephone Encounter - Ember Mares R.N. - 01/06/2011 4:00 PM EST Gricelda will call pt and let her know that she can wait until jan 28 but if insurance does not go through at that time. If she does not have insurance in January she should seek alternative health care, at [facility] or at the ed for any acute illness. * Telephone Encounter - Charles Plaza MD - 01/06/2011 10:52 AM EST Not having the labs until next month puts the patient at risk but probably not at a great risk compared with waiting until next month. * Telephone Encounter - Leyla Trujillo - 01/06/2011 10:18 AM EST Patient was seen by Dr. Plaza yesterday morning. She has [employer] HMO coverage of [place]; this coverage is only good in [place]. It will only cover the patient at ER. I spoke with patient yesterday afternoon and explained, will need to cancel this coverage in order to be able to continue care at [facility]. Should patient call this month; coverage will be termed at the end of this month and will have the traditional Medicare coverage. Patient has pending lab orders from yesterday. Should patient have labs done here and is it necessary to have them done immediately or can they wait until her insurance issue is addressed. Let me know and I will contact patient today. documented in this encounter Plan of Treatment Not on file documented as of this encounter Visit Diagnoses Not on filedocumented in this encounter Care Teams Trauma Surgeon Relationship Specialty Start Date End Date Community, Pcp PCP - General Internal Medicine 01/05/11 01/27/11 Name, MD Edmund PCP - General Internal Medicine 01/28/11 documented as of this encounter
--- OUTSIDE RECORDS SUMMARY | 2024-03-26 16:15 | XMS_ITS | Encounter Summary ---
Author Organization [email or web address] Address [address] [place] [address] Care Team Providers Care Core Analysis Operator Name Role Phone Name, Edmund HERNANDEZ Primary Care Provider Unavailabl e Encounter Details Date Type Department Care Team Description 01/02/2013 Special Projects Coordinator Report Medical Records [address] [place] [address] Shirley Mckeon Social History Tobacco Use Types Packs/Day Years [...] on filedocumented in this encounter Care Teams Core Analysis Operator Relationship Specialty Start Date End Date Name, MD Edmund PCP - General Internal Medicine 01/28/11 documented as of this encounter
--- OUTSIDE RECORDS SUMMARY | 2024-03-26 16:16 | XMS_ITS | Encounter Summary ---
Author Organization [facility] Address [address] [place] [address] Care Team Providers Care Tape Cutter Name Role Phone Name, Edmund HERNANDEZ Primary Care Provider Unavailabl e Encounter Details Date Type Department Care Team Description 10/12/2011 Business Doc Medical Records [address] [place] [address] Abstract, Provider Social History Tobacco Use Types Packs/Day Years Used Date Smoking Tobacco: Former Smokeless Tobacco: Never Alcohol Use Standard Drinks/Week Comments No 0 (1 standard drink = 0.6 oz pur e alcohol) Sex Assigned at Date Recorded Not on file documented as of this encounter Plan of Treatment Not on file documented as of this encounter Visit Diagnoses Not on filedocumented in this encounter Care Teams Tape Cutter Relationship Specialty Start Date End Date Name, MD Edmund PCP - General Internal Medicine 01/28/11 documented as of this encounter
--- OUTSIDE RECORDS SUMMARY | 2024-03-26 16:16 | XMS_ITS | Encounter Summary ---
Author Organization [employer] Address [address] [facility] 7 [place] [address] Care Team Providers Care Loss Prevention Analyst Name Role Phone Name, Edmund HERNANDEZ Primary Care Provider [phone] Reason for Visit * Reason Comments Med Refill Encounter Details Date Type Department Care Team ([facility] st Contact Info) Description 01/20/2024 Refill [facility] MEDICINE [address] [place], [place] [id number] Name, MD Edmund [address] [place] [address] Social History Tobacco Use Types Packs/Day Years Used Date Smoking Tobacco: Never Passive Smoke Exposure: Never Smokeless Tobacco: Never Alcohol Use Standard Drinks/Week Comments Never 0 (1 standard drink = 0.6 oz pur e alcohol) Alcohol Answer Date Recorded Frequency of Alcohol Consumption Not on file 08/31/2023 Average Number of Drinks Not on file 024 Frequency of Binge Drinking Not on file 04/2023 Score 0 08/31/2023 Depression Answer Date Recorded Patient Health Questionnaire-9 Score 0 07/29/2023 Patient Health Questionnaire-9 Score 0 07/29/2023 Last PHQ-9: Questionnaire Data Not on file 0 07/29/2023 Housing Stability Answer Date Recorded What is your housing situation today? I have aron toney 05/09/[address] you li ve. Do you have problems with any of the following? None of the above 05/09/2023 Food Insecurity Answer Date Recorded Within the past 12 months, y ou worried that your food would run out before you got money to buy more: Never True 05/09/2023 Within the past 12 months,th e food you bought just didn't last and you didn't have enough money to get more: Never True 12/2023 Transportation Answer Date Recorded In the past 12 months, has l ack of transportation kept you from medical appts, meetings, work or from getting things needed for daily living? No 05/09/2023 Utilities Answer Date Recorded In the past 12 months, has t he electric, gas, oil or water company threatened to shut off services in your home? No 05/09/2023 Depression Answer Date Recorded Patient Health Questionnaire-2 Score 0 07/29/2023 Comments Unknown Sex and Gender Information Value Date Recorded Sex Assigned at Female 12/28/2021 10:29 AM EDT Legal Sex Female 10:29 AM EDT Gender Identity Female 12/28/2021 10:29 AM EDT Sexual Orientation Straight 12/28/2021 10 :29 AM EDT documented as of this encounter Plan of Treatment Upcoming Encounters Date Type Department Care Team (Late st Contact Info) Description 04/19/2024 9:45 AM EST Office Visit [facility] MEDICINE [address] [place] [address] Name, MD Edmund [address] [place] [address] 05/16/2024 10:00 AM EDT Office Visit [facility] ADULT DENTAL [address] [place] [address] Lillie Witt documented as of this encounter Visit Diagnoses Not on filedocumented in this encounter Additional Health Concerns Assessment Noted Time PHQ-9 Depression Total Score: 0 07/29/19 24 9:26 AM EDT documented as of this encounter Care Teams Loss Prevention Analyst Relationship Specialty Start Date End Date Name, MD Edmund [address] [place] [address] PCP - General Family Medicine 04/04/15 documented as of this encounter
--- OUTSIDE RECORDS SUMMARY | 2024-03-26 16:16 | XMS_ITS | Encounter Summary ---
Author Organization [facility] Address [address] [place] [address] Care Team Providers Care User Interface Designer Name Role Phone Name, Edmund HERNANDEZ Primary Care Provider Unavailabl e Encounter Details Date Type Department Care Team Description 11/04/2015 Business Doc Medical Records [address] [place] [id number] Abstract, Provider Social History Tobacco Use Types [...] on filedocumented in this encounter Care Teams User Interface Designer Relationship Specialty Start Date End Date Name, MD Edmund PCP - General Internal Medicine 01/28/11 documented as of this encounter
--- OUTSIDE RECORDS SUMMARY | 2024-03-26 16:16 | XMS_ITS | Encounter Summary ---
Author Organization [facility] Address [address] [place] [address] Care Team Providers Care Deliverer Food Name Role Phone Name, Edmund HERNANDEZ Primary Care Provider Unavailabl e Encounter Details Date Type Department Care Team Description 10/14/2011 Field Administrator Report Medical Records [address] [place] [address] Karsten Beach PA-C Social History Tobacco Use Types Packs/Day Years [...] on filedocumented in this encounter Care Teams Deliverer Food Relationship Specialty Start Date End Date Name, MD Edmund PCP - General Internal Medicine 01/28/11 documented as of this encounter
--- OUTSIDE RECORDS SUMMARY | 2024-03-26 16:16 | XMS_ITS | Encounter Summary ---
Author Organization [facility] Address [address] [place] [address] Care Team Providers Care Business Systems Manager Name Role Phone Name, Edmund HERNANDEZ Primary Care Provider Unavailabl e Encounter Details Date Type Department Care Team Description 05/31/2016 Pipe Fittings Molder Report Medical Records [address] [place] [address] Monica Duque [address] [place] [address] Social History Tobacco Use Types Packs/Day Years [...] on filedocumented in this encounter Care Teams Business Systems Manager Relationship Specialty Start Date End Date Name, MD Edmund PCP - General Internal Medicine 01/28/11 documented as of this encounter
--- OUTSIDE RECORDS SUMMARY | 2024-03-26 16:16 | XMS_ITS | Encounter Summary ---
Author Organization [email or web address] [facility] Address [address] [place] [address] Care Team Providers Care Manager Psychiatry Name Role Phone Name, Edmund HERNANDEZ Primary Care Provider Unavailabl e Encounter Details Date Type Department Care Team Description 05/31/2014 Sec Accountant Report Medical Records [address] [place] [id number] Suresh Short MD Social History Tobacco Use Types Packs/Day Years [...] on filedocumented in this encounter Care Teams Manager Psychiatry Relationship Specialty Start Date End Date Name, MD Edmund PCP - General Internal Medicine 01/28/11 documented as of this encounter
--- OUTSIDE RECORDS SUMMARY | 2024-03-26 16:16 | XMS_ITS | Encounter Summary ---
Author Organization [facility] Address [address] [place] [address] Care Team Providers Care Director Of Food And Nutrition Name Role Phone Name, Edmund HERNANDEZ Primary Care Provider Unavailabl e Reason for Visit * Reason Onset Date Comments TEST RESULTS 05/26/2012 Encounter Details Date Type Department Care Team Description 05/26/2012 Telephone Adult [address] [address] Erin Mcqueen NP TEST RESULTS Social History Tobacco Use Types Packs/Day Years Used Date Smoking Tobacco: Former Smokeless Tobacco: Never Alcohol Use Standard Drinks/Week Comments No 0 (1 standard drink = 0.6 oz pur e alcohol) Sex Assigned at Date Recorded Not on file documented as of this encounter Miscellaneous Notes * Telephone Encounter - Alesha Appiah M.A. - 05/26/2012 4:10 PM EDT Notes Recorded by Erin Mcqueen NP on 05/26/2012 at 1:10 PM Please call pt, her lab shows that she is postmentopausal which is why she is having hot flashes. We can discuss this further at next visit. documented in this encounter Plan of Treatment Not on file documented as of this encounter Visit Diagnoses Not on filedocumented in this encounter Care Teams Director Of Food And Nutrition Relationship Specialty Start Date End Date Name, MD Edmund PCP - General Internal Medicine 01/28/11 documented as of this encounter
--- OUTSIDE RECORDS SUMMARY | 2024-03-26 16:16 | XMS_ITS | Encounter Summary ---
Author Organization [facility] Address [address] [place] [address] Care Team Providers Care Director Camp Name Role Phone Edmund Beck MD Primary Care Provider Unavailabl e Reason for Visit * Reason Onset Date Comments Follow-up Appt Unavailable 05/02/2012 Encounter Details Date Type Department Care Team Description 05/02/2012 Telephone Adult Medicine [address] [address] Name, MD Edmund Follow-up Appt Unavailable Social History Tobacco Use Types Packs/Day Years Used Date Smoking Tobacco: Former Smokeless Tobacco: Never Alcohol Use Standard Drinks/Week Comments No 0 (1 standard drink = 0.6 oz pur e alcohol) Sex Assigned at Date Recorded Not on file documented as of this encounter Miscellaneous Notes * Telephone Encounter - Ember Mares R.N. - 05/02/2012 3:32 PM EST Pt booked 07/04 at 3:[address] beck, message left for pt to call. she will need to confirm appointment or be rescheduled with triage. * Telephone Encounter - Alicia Gomez - 05/02/2012 3:[address] BECK WOULD LIKE TO SEE PT BACK IN 2 MONTHS. PT NEEDS SOMEONE TO LET HER KNOW ABOUT APPT IN ENGLISH. documented in this encounter Plan of Treatment Not on file documented as of this encounter Visit Diagnoses Not on filedocumented in this encounter Care Teams Director Camp Relationship Specialty Start Date End Date Name, MD Edmund PCP - General Internal Medicine 01/28/11 documented as of this encounter
--- OUTSIDE RECORDS SUMMARY | 2024-03-26 16:16 | XMS_ITS | Encounter Summary ---
Author Organization [facility] Address [address] [place] [address] Care Team Providers Care Coupon Redemption Clerk Name Role Phone Name, Edmund HERNANDEZ Primary Care Provider Unavailabl e Encounter Details Date Type Department Care Team Description 05/17/2011 Release of Information Medical Records [address] [place] [address] Abstract, Provider Social History Tobacco Use Types [...] on filedocumented in this encounter Care Teams Coupon Redemption Clerk Relationship Specialty Start Date End Date Name, MD Edmund PCP - General Internal Medicine 01/28/11 documented as of this encounter
--- OUTSIDE RECORDS SUMMARY | 2024-03-26 16:16 | XMS_ITS | Encounter Summary ---
Author Organization [employer] [facility] Address [address] [place] [address] Care Team Providers Care Roustabout Head Name Role Phone Name, Edmund HERNANDEZ Primary Care Provider Unavailabl e Encounter Details Date Type Department Care Team Description 06/02/2015 Release of Information Medical Records [address] [place] [address] Abstract, Provider Social History Tobacco Use Types [...] on filedocumented in this encounter Care Teams Roustabout Head Relationship Specialty Start Date End Date Name, MD Edmund PCP - General Internal Medicine 01/28/11 documented as of this encounter
--- OUTSIDE RECORDS SUMMARY | 2024-03-26 16:16 | XMS_ITS | Encounter Summary ---
Author Organization [facility] Address [address] [place] [address] Care Team Providers Care Vertical Roll Operator Name Role Phone Name, Edmund HERNANDEZ Primary Care Provider Unavailabl e Encounter Details Date Type Department Care Team Description 05/14/2013 Fishing Lure Assembler Report Medical Records [address] [place] [address] Karsten Kohli MD Social History Tobacco Use Types Packs/Day [...] on filedocumented in this encounter Care Teams Vertical Roll Operator Relationship Specialty Start Date End Date Name, MD Edmund PCP - General Internal Medicine 01/28/11 documented as of this encounter
--- OUTSIDE RECORDS SUMMARY | 2024-03-26 16:16 | XMS_ITS | Encounter Summary ---
Author Organization [employer] Address [address] [facility] 7[address] [place] [address] Care Team Providers Care Landscape Architecture Professor Name Role Phone Name, Edmund HERNANDEZ Primary Care Provider [phone] Reason for Visit * Reason Comments Med Refill Encounter Details Date Type Department Care Team ([facility] st Contact Info) Description 02/10/2024 Refill [facility] MED & PEDS [address] [place], [place] [phone] Name, MD Edmund [address] [place] [address] Social History Tobacco Use Types Packs/Day Years [...] Description 04/19/2024 9:45 AM EST Office Visit [facility] MEDICINE [address] [place] [address] Name, MD Edmund [address] [place] [address] 05/16/2024 10:00 AM EDT Office Visit [facility] ADULT DENTAL [address] [place] [address] Lillie Witt documented as of this encounter Visit Diagnoses Not on filedocumented in this encounter Additional Health Concerns Assessment Noted Time PHQ-9 Depression Total Score: 0 07/29/19 24 9:26 AM EDT documented as of this encounter Care Teams Landscape Architecture Professor Relationship Specialty Start Date End Date Name, MD Edmund [address] [place] [address] PCP - General Family Medicine 04/04/15 documented as of this encounter
--- OUTSIDE RECORDS SUMMARY | 2024-03-26 16:16 | XMS_ITS | Encounter Summary ---
Author Organization [facility] Address [address] [place] [address] Care Team Providers Care [employer] Name Role Phone Name, Edmund HERNANDEZ Primary Care Provider Unavailabl e Encounter Details Date Type Department Care Team Description 03/05/2011 Funeral Service Licensee Report Medical Records [address] [place] [id number] Sherie Guerrero NP Social History Tobacco Use Types Packs/Day Years Used Date Smoking Tobacco: Former Alcohol Use Standard Drinks/Week Comments No 0 (1 standard drink = 0.6 oz pur e alcohol) Sex Assigned at Date Recorded Not on file documented as of this encounter Plan of Treatment Not on file documented as of this encounter Visit Diagnoses Not on filedocumented in this encounter Care Teams [employer] Relationship Specialty Start Date End Date Name, MD Edmund PCP - General Internal Medicine 01/28/11 documented as of this encounter
--- OUTSIDE RECORDS SUMMARY | 2024-03-26 16:16 | XMS_ITS | Clinical Summary ---
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 She denies an actual allergy to this medicine Aspirin Nausea And Vomiting,Swelling High 03/06/2008 Other reaction(s): OTHER LegacyRecord#[id number] Throat closing Green Dye High 11/15/2018 IV DYE Iodinated Contrast Media Nausea And Vomiting,Swelling 03/06/2008 Other reaction(s): arm swelling Other reaction(s): OTHER Throat closing Iodine High 04/04/2015 LegacyRecord#[id number] Tuberculin Ppd High 11/15/2018 Tuberculin Purified Protein Derivative 08/20/2022 Other reaction(s): ?reaction Tuberculin, Ppd 01/09/2013 LegacyRecord#[id number] Medications fluticasone (Flonase) 50 MCG/ACT nasal sprayIndications:A llergic rhinitis, unspecified seasonality, unspecified trigger Administer 2 sprays into each nostril in the morning. 48 g 02/05/20 22 Active amLODIPine (Norvasc) 5 MG tablet 03/18/19 23 Active montelukast (Singulair) 10 MG tablet Take 1 tablet by mouth at bed time. 03/28/19 20 Active pantoprazole (ProtoNix) 40 MG EC tablet 01/27/20 22 Active metFORMIN (Glucophage) 500 MG tabletIndications: Mild intermittent asthma, unspecified whether complicated TAKE 1 TABLET BY ORAL ROUTE 2 TIMES EVERY DAY WITH MORNING AND EVENING MEALS 60 tablet 5 05/13/19 23 Active loratadine (Claritin) 10 MG tabletIndications: Mild intermittent asthma, unspecified whether complicated TAKE 1 TABLET BY ORAL ROUTE EVERY DAY 90 tablet 1 05/13/19 23 Active albuterol (2.5 MG/3ML) 0.083% nebulizer solution Take 3 mL (2.5 mg) by nebulization every 6 (six) hours if needed for wheezing or shortness of breath. 75 mL 1 05/20/19 23 Active Spacer/Aero-Holdin g Chambers (OptiChamber Ophelia) misc 1 each every 4 (four) hours if needed (asthma). 1 each 05/20/19 23 Active metoprolol tartrate (Lopressor) 50 MG tabletIndications: Hypertension, unspecified type Take 1 tablet (50 mg) by mouth 2 times daily. 180 tablet 1 10/02/19 23 Active glucose blood (FREESTYLE LITE) test strip TEST BLOOD SUGAR ONCE DAILY 100 each 11 12/01/19 23 Active Blood Glucose Monitoring Suppl ([employer] Verio) w/Device kit USE TO TEST BLOOD SUGAR EVERY DAY 1 kit 12/25/19 23 Active OneTouch Delica Lancets 33G misc USE TO TEST BLOOD SUGAR EVERY DAY 100 each 11 12/25/19 23 Active budesonide-formote rol (Symbicort) 160-4.5 MCG/ACT inhaler Inhale. 08/28/19 23 Active Diclofenac Sodium 1 % gel APPLY 1 TO 3 GRAMS TO AFFECTED AREA THREE TIMES A DAY TO FOUR TIMES A DAY 100 g 1 04/08/19 24 Active atorvastatin (Lipitor) 20 MG tabletIndications: Mixed hyperlipidemia Take 1 tablet (20 mg) by mouth Once per day. 90 tablet 2 06/28/19 24 Active calcium citrate 333 MG tablet Take 1 tablet (333 mg) by mouth if needed each day (as needed). 90 tablet 2 07/29/19 24 025 Active FreeStyle lancets USAR TO TEST BLOOD SUGAR CLYDE VEZ AL TREVOR 100 each 11 12/02/19 24 Active DULoxetine (Cymbalta) [address] capsule Take 1 capsule (30 mg) by mouth Once per day. 30 capsule 2 12/06/19 24 Active glucose blood (OneTouch Verio) test stripIndications:T ype 2 diabetes mellitus without complication, without long-term current use of insulin ([facility]) USE TO TEST BLOOD SUGAR ONCE A DAY 100 strip 11 12/28/19 24 Active hydrocortisone 2.5 % ointmentIndication s:Fissure in skin Apply topically 2 times daily. 20 g 12/30/19 24 Active Ventolin HFA 108 (90 Base) MCG/ACT inhalerIndications :Mild intermittent asthma, unspecified whether complicated INHALE 2 PUFFS BY MOUTH EVERY 4 TO 6 HOURS IF NEEDED 18 g 2 01/19/20 24 Active levothyroxine (Synthroid, Levoxyl) 88 MCG tablet TAKE ONE TABLET BY MOUTH EVERY MORNING BEFORE BREAKFAST 90 tablet 1 01/20/20 24 Active Dulaglutide (Trulicity) 0.75 MG/0.5ML solution auto-injectorIndic ations:Type 2 diabetes mellitus without complication, without long-term current use of insulin ([facility]) Inject 0.5 mL (0.75 mg) under the skin 1 (one) time per week. INJECT 0.5 ML SUBCUTANEOUSLY EVERY WEEK. 2 mL 5 02/10/20 24 Active OneTouch Delica Lancets 33G misc USE TO TEST BLOOD SUGAR EVERY DAY 100 each 5 02/10/20 24 Active celecoxib (CeleBREX) 200 MG capsuleIndications :Chronic bilateral low back pain with left-sided sciatica Take 1 capsule (200 mg) by mouth 2 times daily. 20 capsule 03/12/19 25 025 Active Hospital, Clinic, or Other Facility Administered Medication Ordered Dose Route Frequency Start Date End Date Status ketorolac (Toradol) injection 30 mgIndications:Chronic bilateral low back pain with left-sided sciatica 30 mg IM Once 03/12/2024 03/12/2024 Ended Active Problems Problem Noted Date Diagnosed Date Muscle spasm 08/31/2023 Hypothyroidism 08/31/2023 Assessment & Plan (09/06/2023 6:21 PM EDT): Potential source of palpitations as pt was overcorrected, has reduced rx as prescribed, tsh today Hair loss 08/31/2023 Assessment & Plan (09/06/2023 6:22 PM EDT): Reports chronic issue, referral to derm Hoarse voice quality 08/31/2023 Assessment & Plan (09/06/2023 6:22 PM EDT): Referral to ent, Osteopenia after menopause 07/30/2023 Assessment & Plan (07/30/2023 4:18 PM EDT): Dexa scan reviewed, reviewed importance of adequate dietary calcium and weight bearing exercise, pt requests calcium supplementation as reports inconsistent calcium dietary intake Allergies 07/29/2023 Assessment & Plan (07/30/2023 4:16 PM EDT): Seasonal allergies are trigger for asthma , recent flare, continue current regimen Chronic insomnia 06/28/2023 Class 1 obesity 06/28/2023 Arthritis of left hip 06/28/2023 Assessment & Plan (07/30/2023 4:16 PM EDT): Notes benefit in pain from tramadol, continue 50-100 mg nightly , Assessment & Plan (06/28/2023 11:55 AM EDT): Reviewed importance of ongoing relationship with ortho for pain management options, Introduce tramadol aware that if helpful will meet with feed preparation operator Health maintenance examination 06/05/2023 Bradycardia 08/20/2022 Bradycardia by electrocardiogram 08/20/2022 Hyperlipemia 08/20/2022 Assessment & Plan (06/28/2023 11:57 AM EDT): Pt reports intermittent compliance with med. Resume Assessment & Plan (2023 4:01 PM EDT): Continue atorvastatin Obstructive sleep apnea syndrome 08/20/2022 Assessment & Plan (06/13/2023 2:10 PM EDT): Pt denies daytime somnolence Palpitations 08/20/2022 Tubular adenoma of colon 05/08/2021 Overview (08/20/2022): repeat in 2028repeat screening colonoscopy in 2026 Constipation 12/08/2018 Overview (08/20/2022): Overview Note: Constipation #[id number]# EXT_ID: [id number] Breast cancer 11/15/2018 Overview (08/20/2022): Right DCIS in 2016, on tamoxifen, 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 Assessment & Plan (2023 3:54 PM EDT): In close care with oncology, utd on mammogram Hypertrophic condition of skin 10/26/2018 Overview (08/20/2022): Overview Note: Hypertrophic disorders of skin #[id number]# EXT_ID: [id number] 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 Overview (08/20/2022): Overview Note: Monoarthritis, not elsewhere classified, knee #[id number]# EXT_ID: [id number] Assessment & Plan (2023 4:01 PM EDT): Trial tramadol, Medication Indications, side effects and duration of therapy reviewed, pt aware to call clinic for worsening symptoms or failure to resolve Dry eye syndrome 10/04/2018 Overview (08/20/2022): Overview Note: Dry eye syndrome #[id number]# EXT_ID: [id number] Pain in knee 10/04/2018 Overview (08/20/2022): Overview Note: Pain in knee #[id number]# EXT_ID: [id number] Intraductal carcinoma in situ of breast 08/04/19 19 Overview (08/20/2022): Overview Note: Intraductal carcinoma in situ of breast #[id number]# EXT_ID: [id number] Benign mammary dysplasia 08/01/2018 Overview (08/20/2022): Overview Note: Other benign mammary dysplasias #[id number]# EXT_ID: [id number] Mild persistent asthma 07/27/2018 Overview (08/20/2022): Overview Note: Mild intermittent asthma #[id number]# EXT_ID: [id number] Assessment & Plan (06/13/2023 2:10 PM EDT): Stable mild intermittent, seasonal allergies are triggers, Anxiety disorder 07/27/2018 Overview (08/20/2022): The patient follows with Dr Taylor Overview Note: Other anxiety disorders #[id number]# EXT_ID: [id number] Assessment & Plan (2023 3:55 PM EDT): Reports stable and well managed, continue current regimen Hypertension 07/27/2018 Overview (06/13/2023): At goal today, continue amlodipine and metoprolol, consider josefa or arb given concurrent dm, defer to pcp Joint pain 11/08/2017 Diabetes mellitus, type 2 05/21/2016 Overview (08/20/2022): Overview Note: Type 2 diabetes mellitus #[id number]# EXT_ID: [id number] Allergic rhinitis 05/21/2016 Assessment & Plan (2023 4:05 PM EDT): Daily symptoms, resume topical steroid nasal spray, referral to ent Hot flash due to medication 11/01/2014 Recurrent ventral incisional hernia 07/18/2014 DJD (degenerative joint disease), lumbosacral Assessment & Plan (07/30/2023 4:17 PM EDT): Chronic pain, notes benefit from 300 mg gabapentin, increase to 600 mg monitor for side effects Assessment & Plan (2023 4:07 PM EDT): Resume gabapentin which pt reports hx tolerated and was helpful Reviewed gradual titration Carpal tunnel syndrome 12/12/2013 Overview (08/20/2022): Overview Note: Carpal tunnel syndrome #[id number]# EXT_ID: [id number] Atypical lobular hyperplasia (ALH) of breast Overview (08/20/2022): [facility] [place] [facility] Avina. She was on Tamoxigen for 5 years Umbilical hernia 07/16/2011 Impaired fasting glucose 01/28/2011 Breast microcalcification, mammographic 01/09/20 11 Overview (08/20/2022): Biopsied in [place] 07-07-2009, fibrocystic disease. Acquired hypothyroidism 01/05/2011 Overview (08/20/2022): Overview Note: Other hypothyroidism #[id number]# EXT_ID: [id number] Assessment & Plan (06/28/2023 11:56 AM EDT): Reduce to 6 tablets weekly, repeat labs in 6 weeks IBS (irritable bowel syndrome) 10/03/2008 GERD (gastroesophageal reflux disease) 9 Helicobacter pylori infection 08/01/2008 Hiatal hernia 03/06/2008 Overview (04/06/2022): H/o helocobacter pylori Assessment & Plan (2023 3:50 PM EDT): Continue ppi , pantoprazole 40 mg Resolved Problems Problem Noted Date Diagnosed Date Resolved Date Shortness of breath 08/20/2022 12/06/19 24 Cough 12/08/2018 12/06/2023 Overview (08/20/2022): Overview Note: Cough #[id number]# EXT_ID: [id number] Major depressive disorder, recurrent 10/26/2018 06/29/2023 Overview (04/06/2022): Overview Note: Major depressive disorder, recurrent #[id number]# EXT_ID: [id number] Lung mass 01/08/2011 2023 Overview (08/20/2022): F/u recommended somewhere between 01/09 and 07/10 Abdominal pain 03/06/2008 12/06/2023 Overview (08/20/2022): Overview Note: Dorsalgia #[id number]# EXT_ID: [id number] Cervical spine disc herniation Overview Note: Other abdominal pain #[id number]# EXT_ID: [id number] Asthma 03/06/2008 12/06/2023 Assessment & Plan (07/30/2023 4:20 PM EDT): Recent exacerbation, no audible wheeze today, continue inhalers Assessment & Plan (2023 4:09 PM EDT): Continue current inhalers, seasonal allergies are trigger, monitor for increased albuterol usage Encounters Date Type Department Care Team Description 03/15/2024 Telephone [facility] ADULT DENTAL [address] [place] [address] Lillie Witt mail appt slip 03/13/2024 Telephone [facility] MEDICINE [address] [place] [phone] Carter Troy ANP 03/12/2024 1:20 PM EST Office Visit [facility] WALK-IN CENTER [address] [place] [phone] Norbert Rico MD Chronic bilateral low back pain with left-sided sciatica (Primary Dx) 03/07/2024 Telephone [facility] MEDICINE [address] [place] [phone] Daisy Noriega, RN Results 02/10/2024 Orders Only GENERIC EXTERNAL DATA DEPARTMENT Provider, Generic External Data 02/10/2024 Refill [facility] [address] [place] [address] Edmund Valentino MD 02/10/2024 Refill [facility] MEDICINE [address] [place] [phone] Edmund Valentino MD Type 2 diabetes mellitus without complication, without long-term current use of insulin ([facility]) 02/09/2024 Telephone [facility] MEDICINE [address] [place] [phone] Edmund Valentino MD Lab Orders 02/03/2024 Telephone [facility] MEDICINE [address] [place] [phone] Edmund Valentino MD Durable Medical Equipment 01/27/2024 Refill [facility] MEDICINE [address] [place] [phone] Beth Blanco NP 01/20/2024 1:20 PM EST Office Visit [facility] [address] [place] [phone] [place], Nicolasa, SURG NURSE Sore throat (Primary Dx); Reactive lymphadenopathy 01/20/2024 11:00 AM EST Office Visit [facility] ADULT DENTAL [address] [place] [phone] Beatriz Mireles, DDS 01/20/2024 Refill [facility] MEDICINE [address] [place] [phone] Edmund Valentino MD 01/20/2024 Refill [facility] MEDICINE [address] [place] [address] [place] [address] Edmund Valentino MD 01/18/2024 Refill [facility] MED[facility] [address] [facility] [place] [address] NameEdmund MD Mild intermittent asthma, unspecified whether complicated 01/17/2024 9:45 AM EST Office Visit [facility] [address] [place] [address] Alyssa Sandra MD Chronic bilateral low back pain with left-sided sciatica (Primary Dx) 01/17/2024 Travel 01/09/2024 Refill [facility] MED[facility] [address] [facility] [place] [address] Edmund Valentino MD 01/06/2024 Refill [facility] MEDICINE [address] [place] [address] Beth Blanco NP 01/04/[address] [address] Ladan Jarquin RN 01/02/2024 9:15 AM EST Office Visit [facility] [address] [place] [address] Alyssa Sandra MD Chronic bilateral low back pain with left-sided sciatica (Primary Dx) 01/02/2024 Travel 12/30/2023 10:30 AM EDT Office Visit [facility] [address] [facility] [address] Rayn Hernandez MD Fissure in skin (Primary Dx) 12/30/2023 Travel 12/27/2023 10:15 AM EDT Office Visit [facility] MEDICINE [address] [place] [address] Alyssa Sandra MD Chronic bilateral low back pain with left-sided sciatica (Primary Dx) 12/27/2023 Refill [facility] [address] [place], [place] [phone] Chelsy, MD Edmund Type 2 diabetes mellitus without complication, without long-term current use of insulin ([facility]) 12/27/2023 Travel from Last 3 Months Immunizations Name Administration Dates Next Due Influenza injectable quadriv alent IIV4 with preservative 12/18/2015,11/30/2013,11/06/2000 Influenza injectable quadriv alent preservative free 11/10/2021,12/08/2018,12/10/2017 Influenza, IIV3, injectable 12/28/2013,0 11/06/2012,12/08/2011,01/05 Influenza, seasonal, injecta ble, preservative free 12/08/2016,11/02/2016 Pfizer Covid-19 Vaccine 12+ 12/11/2020,,04/06/2020 Pneumococcal Conjugate PCV 20 07/29/2023 Pneumococcal Polysaccharide PPSV23 07/24/2014 Tdap 12/06/2023,03/15/2011 Social History Tobacco Use Types Packs/Day Years Used Date Smoking Tobacco: Never Passive Smoke Exposure: Never Smokeless Tobacco: Never Tobacco Cessation:Counseling Given: Not Answered Alcohol Use Standard Drinks/Week Comments Never 0 [...] Orientation Straight 12/28/2021 10 :29 AM EDT Last Filed Vital Signs Vital Sign Reading Time Taken Comments Blood Pressure 155/73 03/12/2024 12:53 PM EST Pulse 63 03/12/2024 12:53 PM EST Temperature 37.4 ??C (99.3 ??F) 03/12/2024 1 2:53 PM EST Respiratory Rate 17 03/12/2024 12:5 3 PM EST Oxygen Saturation 97% 01/20/2024 12: 43 PM EST Inhaled Oxygen Concentration - - Weight 65.7 kg (144 lb 12.8 oz) 025 12:53 PM EST Height 152.4 cm (5') 03/12/2024 12:53 PM EST Body Mass Index 28.28 03/12/2024 12:53 PM EST Plan of Treatment Upcoming Encounters Date Type Department Care Team (Late st Contact Info) Description 04/19/2024 9:45 AM EST Office Visit [facility] MEDICINE [address] [place] [phone] Name, MD Edmund [address] [place] [phone] 05/16/2024 10:00 AM EDT Office Visit [facility] ADULT DENTAL [address] [place] [address] Lillie Witt Health Maintenance Due Date Last Done Comments CT Colonography 1962 FIT DNA/Cologuard 1962 FIT 1962 FOBT 1960 HIV Screening 1960 Sigmoidoscopy 1962 Hepatitis C Screening 1980 Pap Smear 06/26/1983 Cervical Cancer Screening 1992 HPV/Cotest 1992 Dental Oral Exam 02/26/2021 08/26/2020, 04/21/2016 Dental Prophylaxis 02/26/2021 08/26/2020, 04/21/2016 Dental X-Ray: Bitewings 08/27/2021 08/26/2020, 04/21 RSV Patients and Patients Aged 60 years or older (1 - Risk 60-74 years 1-dose series) 2022 Dental X-Ray: Full Mouth 08/28/2023 08/26/2020, 04/01 SDOH Screening 05/08/2024 05/09/2023 Diabetes: Hemoglobin A1C 06/05/2024 024, 06/07/2023, 06/06/2023, Additional history exists Lipid Panel 06/06/2024 06/07/2023, 04/21/2020 Mammogram 07/04/2024 07/05/2023, 05/30, 2022, Additional history exists Depression Screening 07/28/2024 07/29/2023, 07/29/19 24 Alcohol/Substance Use Screening 08/30/2024 08/31/2023 Diabetes: Foot Exam 12/05/2024 12/06/2023, 12/06/2023, 12/06/2023, Additional history exists Diabetes: Urine Protein Screening 12/05/2024 12/06/2023, 05/19/2022, 04/21/2020, Additional history exists Tobacco Screening 03/12/2025 03/12/2024 Eye Exam 03/29/2025 03/29/2023 Colonoscopy 05/06/2026 05/06/2021 Colorectal Cancer Screening 05/06/2026 DTaP/Tdap/Td Vaccines (3 - Td or Tdap) 12/05/2033 12/06/2023, 03/15/2011 Zoster Vaccines Completed 01/30/2020, 12/01/2019 Pneumococcal Vaccine: Pediatrics (0 to 5 Years) and At-Risk Patients (6 to 64 Years) Completed 07/29/2023, 11/13/2020, 07/24/2014 COVID-19 Vaccine Completed 11/02/2023, 04/2022, 12/11/2020, Additional history exists Influenza Vaccine Completed 11/02/2023, , 11/13/2020, Additional history exists HIB Vaccines Aged Out No longer eligi ble based on patient's age to complete this topic HPV Vaccines Aged Out No longer eligi ble based on patient's age to complete this topic Hepatitis A Vaccines Aged Out No long er eligible based on patient's age to complete this topic Hepatitis B Vaccines Aged Out No long er eligible based on patient's age to complete this topic IPV Vaccines Aged Out No longer eligi ble based on patient's age to complete this topic Meningococcal Vaccine Aged Out No mik cory eligible based on patient's age to complete this topic RSV under 20 months Aged Out No longe r eligible based on patient's age to complete this topic Rotavirus Vaccines Aged Out No longer eligible based on patient's age to complete this topic Procedures Procedure Name Priority Date/Time Associated Diagnosis Comments CT CHEST W CONTRAST Routine 02/10/2024 7 :56 AM EST POCT CREATININE GFR Routine 02/10/2024 7 :50 AM EST POCT INFLUENZA B (ID NOW RAPID MOLECULAR) Routine 01/20/2024 12:56 PM EST Sore throat POCT INFLUENZA A (ID NOW RAPID MOLECULAR) Routine 01/20/2024 12:56 PM EST Sore throat POC HUMPHREY ID NOW STREP A Routine 01/20/2024 12:56 PM EST Sore throat POCT RAPID COVID ANTIGEN Routine 01/20/2024 12:56 PM EST Sore throat NO CHARGE VISIT Routine 01/20/2024 11:00 AM EST MR LUMBAR SPINE WO CONTRAST Routine 01/03/2024 1:03 PM EST DJD (degenerative joint disease), lumbosacral Chronic bilateral low back pain with left-sided sciatica ALBUMIN, RANDOM URINE W/CREATININE Routine 12/06/2023 10:00 AM EDT Type 2 diabetes mellitus without complication, without long-term current use of insulin ([facility]) POCT GLYCATED HEMOGLOBIN, TOTAL Routine 12/06/2023 9:03 AM EDT Type 2 diabetes mellitus without complication, without long-term current use of insulin (CMS/HCC) BI MAMMOGRAM SCREENING TOMOSYNTHESIS BILATERAL Routine 07/05/2023 1:55 PM EDT LIPID PANEL, STANDARD Routine 06/07/2023 11:34 AM EDT Type 2 diabetes mellitus without complication, without long-term current use of insulin (CMS/HCC) DIABETES EYE EXAM Routine 03/29/2023 HM COLONOSCOPY Routine 05/06/2021 PROPHYLAXIS - ADULT Routine 08/26/2020 1 2:00 AM EDT DIAGNOSTIC - DIAGNOSTIC IMAGING - INTRAORAL - COMPREHENSIVE SERIES OF RADIOGRAPHIC IMAGES Routine 08/26/2020 12:00 AM EDT PERIODIC ORAL EVALUATION - ESTABLISHED PATIENT Routine 08/26/2020 12:00 AM EDT from Last 3 Months or Most Recently Relevant to Health Maintenance Results * CT Chest w/ Contrast (02/10/2024 7:56 AM EST) Anatomical Region Laterality Modality Body, Chest Computed Tomogra phy 02/10/2024 7:56 AM EST Narrative 02/21/2024 9:00 AM EST ? [facility] ?[address] ?[place] [address] ? [address] Scan Report ? Signed ? Patient: Renetta Colon,Pippa I ?MR#: [id number] ?? [id number] ? : 1960 ?Acct:[id number] ? Age/Sex: 63 / F ?ADM Date: 12/13/24 ? Loc: HO.CT ? Attending Dr: Tank Avina MD ? Ordering Physician: Tank Avina MD ?? Date of Service: 02/10/24 ?? Procedure(s): CT chest w IV con ?? Accession Number(s): [id number] ? cc: Tank Avina MD; Name,Edmund HERNANDEZ ? EXAMINATION: ?? CT CHEST WITH CONTRAST ? CLINICAL INFORMATION: ?? Pulmonary nodules seen on CT abdomen and pelvis 12/22/2023. Bladder CA. ?? Follow-up. ? COMPARISON: ?? No prior chest CT. ?? CT abdomen and pelvis 12/22/2023. ? TECHNIQUE: ?? Multidetector volumetric CT imaging of the chest was obtained after the ?? administration of 50 mL of Omnipaque 350 intravenous contrast without ?? immediate adverse reactions. Axial MIP volume rendering provided. ?? Sagittal and coronal reformatted images were obtained. ? This CT examination was performed using dose optimization techniques as ?? appropriate, variously including the following: ?? *Automated exposure control ?? *Adjustment of mA and/or kV according to patient size (this includes ?? techniques or standardized protocols for targeted exams where dose is ?? matched to indication/reason for exam; i.e. extremities or head) ?? *Use of iterative reconstruction technique ? DLP: ?? 96 mGy-cm ? FINDINGS: ? PULMONARY NODULES: ?? -Triangular-shaped 3 mm nodule minor fissure, (series 5, image 67), ?? consistent with intrapulmonary lymph node. ?? -3 mm calcified granuloma lateral left apex (series 5, image 36). This ?? is benign. There are a few additional calcified granulomata present. ?? Since ?? -5 mm pleural-based nodule lateral posterior left lower lobe, with ?? immediately adjacent 3 mm nodule, stable and unchanged. (Series 5, ?? images 102-104). ? LUNGS: ?? -Aside from minor dependent atelectasis, lungs are clear. There are no ?? consolidations or groundglass opacities. ? -No pleural effusion or pneumothorax. ?? -Small airways are normal. Central airways are patent. ? MEDIASTINUM: ?? -The thyroid is diminutive but normal. ?? -No adenopathy or mass. ?? -There is a partially calcified right paratracheal bronchial lymph ?? node, consistent with prior granulomatous disease. ?? -Aorta is normal in caliber and course. Great vessels branch normally. ?? Main pulmonary artery is normal. ?? Heart size is normal. There is no pericardial effusion. ?? -There is a small type I hiatus hernia at the GE junction. Esophagus ?? otherwise normal. ? PLEURA: There is no pleural effusion. No pleural mass or thickening. ? AXILLA/CHEST WALL: ?? -No masses or lymphadenopathy. ? UPPER ABDOMEN: ?? -There is diffuse fatty infiltration of the liver. ?? -There has been a cholecystectomy. ?? -There is a type I hiatus hernia at the GE junction. ?? -Remainder of the imaged upper abdominal contents appear normal. ? OSSEOUS STRUCTURES: ?? -No suspicious lytic or blastic bone lesions are evident. ?? -Mild spinal degenerative change. ? CT/CT chest w IV con ?? IMPRESSION: ? 1. There are a few scattered pulmonary nodules, most significant in the ?? left subpleural lower lobe, where there is are abutting stable 5 mm and ?? 3 mm nodules. Recommend continued follow-up as per clinical protocol. ?? 2. Lungs otherwise clear without evidence of active disease. ?? 3. No abnormal lymphadenopathy. ?? 4. Evidence of prior granulomatous disease. ?? 5. Fatty infiltration of the liver. ?? 6. Small type I hiatus hernia at the GE junction. ?? 7. Additional ancillary findings as discussed in the body of the report. ? Electronically signed by: ??Cristino Keith MD ??02/21/2024 08:57 AM EST RP ?? Workstation: [id number] ? Dictated By: ?Cristino Keith MD ? Signed By: ?<Electronically signed by Cristino Keith MD in OV> ?02/21/24 0857 ? DD/ 0756 ? TD/TT: 02/10/24 0816 ? Investment Underwriter: ? Procedure Note Perfecto Nair - 02/21/[address] [address] [address] Scan Report Signed Patient: Pippa Camilo [facility]#: [id number] : 1960Acct:[id number] Age/Sex: 63 / FADM Date: 02/10/24 Loc: HO.CT Attending Dr: Tank Avina MD Ordering Physician: Tank Avina MD Date of Service: 02/10/24 Procedure(s): CT chest w IV con Accession Number(s): [id number] cc: Tank Avina MD; Name,Edmund HERNANDEZ EXAMINATION: CT CHEST WITH CONTRAST CLINICAL INFORMATION: Pulmonary nodules seen on CT abdomen and pelvis 12/22/2023. Bladder CA. Follow-up. COMPARISON: No prior chest CT. CT abdomen and pelvis 12/22/2023. TECHNIQUE: Multidetector volumetric CT imaging of the chest was obtained after the administration of 50 mL of Omnipaque 350 intravenous contrast without immediate adverse reactions. Axial MIP volume rendering provided. Sagittal and coronal reformatted images were obtained. This CT examination was performed using dose optimization techniques as appropriate, variously including the following: *Automated exposure control *Adjustment of mA and/or kV according to patient size (this includes techniques or standardized protocols for targeted exams where dose is matched to indication/reason for exam; i.e. extremities or head) *Use of iterative reconstruction technique DLP: 96 mGy-cm FINDINGS: PULMONARY NODULES: -Triangular-shaped 3 mm nodule minor fissure, (series 5, image 67), consistent with intrapulmonary lymph node. -3 mm calcified granuloma lateral left apex (series 5, image 36). This is benign. There are a few additional calcified granulomata present. Since -5 mm pleural-based nodule lateral posterior left lower lobe, with immediately adjacent 3 mm nodule, stable and unchanged. (Series 5, images 102-104). LUNGS: -Aside from minor dependent atelectasis, lungs are clear. There are no consolidations or groundglass opacities. -No pleural effusion or pneumothorax. -Small airways are normal. Central airways are patent. MEDIASTINUM: -The thyroid is diminutive but normal. -No adenopathy or mass. -There is a partially calcified right paratracheal bronchial lymph node, consistent with prior granulomatous disease. -Aorta is normal in caliber and course. Great vessels branch normally. Main pulmonary artery is normal. Heart size is normal. There is no pericardial effusion. -There is a small type I hiatus hernia at the GE junction. Esophagus otherwise normal. PLEURA: There is no pleural effusion. No pleural mass or thickening. AXILLA/CHEST WALL: -No masses or lymphadenopathy. UPPER ABDOMEN: -There is diffuse fatty infiltration of the liver. -There has been a cholecystectomy. -There is a type I hiatus hernia at the GE junction. -Remainder of the imaged upper abdominal contents appear normal. OSSEOUS STRUCTURES: -No suspicious lytic or blastic bone lesions are evident. -Mild spinal degenerative change. CT/CT chest w IV con IMPRESSION: 1. There are a few scattered pulmonary nodules, most significant in the left subpleural lower lobe, where there is are abutting stable 5 mm and 3 mm nodules. Recommend continued follow-up as per clinical protocol. 2. Lungs otherwise clear without evidence of active disease. 3. No abnormal lymphadenopathy. 4. Evidence of prior granulomatous disease. 5. Fatty infiltration of the liver. 6. Small type I hiatus hernia at the GE junction. 7. Additional ancillary findings as discussed in the body of the report. Electronically signed by: Cristino Keith MD 02/21/2024 08:57 AM EST Dictated By: Crsitino Keith MD Signed By: <Electronically signed by Cristino Keith MD in OV> 02/21/24 0857 DD/ 0756 TD/TT: 02/10/24 0816 Investment Underwriter: [facility] External Provider IMG CT PROCEDURES Edited Result - Final * POCT Creatinine GFR (02/10/2024 7:50 AM EST) POCT Creatinine 0.7 0.5 - 1.4 mg/dL [facility] GFR POC >60 [facility] Comment:Chronic Kidney Disea se: Estimated GFR < 60 mL/min/1.18b5Igfots Kidney Disease: Estimated GFR < 15 mL/min/1.73m2 02/10/2024 7:50 AM EST 02/14/2024 7:57 AM EST Narrative [facility] - 02/14/2024 8:00 AM EST [id number] Generic External Data Provider LAB POINT OF CARE TEST DOCKED DEVICE ORDERABLES Final Result [facility] [address] [place] [phone] [phone] * Influenza B (ID NOW Rapid Molecular) (01/20/2024 12:56 PM EST) [facility] Influenza B Negative Negative, Indeterminate [facility] Swab 01/20/2024 12:5 6 PM EST [facility] SURG NURSE POINT OF CARE TEST ENTER/EDIT ORDERABLES Final Result Performing Organization Address [facility] Co de Phone Number [facility] [address] [place] [phone] * Influenza A (ID NOW Rapid Molecular) (01/20/2024 12:56 PM EST) [facility] Influenza A Negative Negative, Indeterminate [facility] Swab 01/20/2024 12:5 6 PM EST [facility] POINT OF CARE TEST ENTER/EDIT ORDERABLES Final Result Performing Organization Address [facility] Co de Phone Number [facility] [address] [place] [phone] * POCT rapid strep A manually resulted (01/20/2024 12:56 PM EST) [facility] Rapid Strep A Screen Negative Negative, None Detected [facility] Swab 01/20/2024 12:5 6 PM EST [facility] SURG NURSE POINT OF CARE TEST ENTER/EDIT ORDERABLES Final Result Performing Organization Address [facility] Co de Phone Number [facility] [address] [place] [phone] * POCT Rapid COVID Ag (01/20/2024 12:56 PM EST) [facility] Rapid COVID Ag Negative [facility] Swab 01/20/2024 12:5 6 PM EST [facility] SURG NURSE POINT OF CARE TEST ENTER/EDIT ORDERABLES Final Result [facility] [address] [place] [address] [phone] * MR Lumbar Spine w/o Contrast (01/03/2024 1:03 PM EST) Anatomical Region Laterality Modality Spine, L-spine Magnetic Resonan ce 01/03/2024 1:03 PM EST Narrative 02/15/2024 3:26 PM EST ? [facility] ?[address] ?[place] [address] ? Magnetic Resonance Report ? Signed ? Patient: Pippa Camilo I ?MR#: [id number] ?? [id number] ? : 1960 ?Acct:[id number] ? Age/Sex: 63 / F ?ADM Date: 01/03/24 ? Loc: HO.MRI ? Attending Dr: Carter Troy NP ? Ordering Physician: CARTER RTOY NP ?? Date of Service: 01/03/24 ?? Procedure(s): MR lumbar spine wo con ?? Accession Number(s): [id number] ? cc: Name,Edmund HERNANDEZ; CARTER TROY NP ? EXAMINATION: ?? MR LUMBAR SPINE WITHOUT CONTRAST ? CLINICAL INFORMATION: ?? Chronic low back pain with left sided sciatica. ? COMPARISON: ?? No prior MRI. ?? X-ray lumbar spine 09/07/2023. ? TECHNIQUE: ?? Multiplanar multisequence MR imaging of the lumbar spine was done ?? without IV contrast. Examination was performed on a 1.5 Charlene Siemens ?? magnet, utilizing standard sequences. ? Exam submitted for review 02/15/2024 2:16 PM [employer]OLD [employer]PER. ? FINDINGS: ? CORONAL ALIGNMENT: ?? -Trace dextroconvex scoliosis. ? SAGITTAL ALIGNMENT: ?? -Normal lumbar lordosis. ?? -Normal alignment without subluxations. ? LUMBOSACRAL JUNCTION: ?? -Normal. There are 5 bpn-kok-sllxxub lumbar-type vertebral bodies. ? VERTEBRAL BODIES/BONE MARROW: ?? -There are no compression deformities or evidence of fractures. No ?? significant bone marrow edema, or abnormal infiltrating bone marrow ?? signal. No endplate changes. ? DISCS: ?? -Mild diffuse loss of disc signal spanning L2-S1 without significant ?? loss of disc height. ? SPINAL CANAL: ?? -No abnormal developmental findings. ? CONUS MEDULLARIS: ?? -Terminates at L1-L2. Morphology and signal is normal. ? INTRADURAL NERVE ROOTS: ?? - Within normal limits. ?? -Fatty filum terminale. ? Axial Disc Space Images: ? T12-L1: No central canal or neural foraminal stenosis. Normal facets. ? L1-L2: No central canal or neural foraminal stenosis. Normal facets. ? L2-L3: There is a minimal left lateral and foraminal protrusion of disc ?? material. There are mild hypertrophic degenerative facet changes ?? bilaterally with mild posterior ligamentous thickening/infolding. No ?? central canal narrowing. Minimal left radicular recess narrowing. Mild ?? left neural foraminal narrowing. ? L3-L4: Minimal shallow bulging disc extending into both foraminal zones ?? symmetrically. There is left-sided annular fissuring. This indents upon ?? the ventral thecal sac, and coupled with moderate hypertrophic facet ?? changes bilaterally with posterior ligamentous thickening/infolding, ?? there is mild to moderate central canal narrowing, minimal bilateral ?? subarticular recess narrowing, and minimal bilateral neural foraminal ?? narrowing. ? L4-L5: Trace disc bulging present concentrically. Moderate hypertrophic ?? degenerative facet changes bilaterally with mild posterior ligamentous ?? thickening/infolding. There is mild central canal narrowing, minimal ?? bilateral subarticular recess narrowing, and mild bilateral neural ?? foraminal narrowing. ? L5-S1: No significant disc pathology. No central canal narrowing. There ?? are mild to moderate hypertrophic degenerative facet changes. No ?? subarticular recess narrowing. Minimal bilateral neural foraminal ?? narrowing. ? IMAGED SI JOINTS: ?? -Normal. ? PARAVERTEBRAL AND INCLUDED EXTRASPINAL SOFT TISSUES: ?? -Normal. ? MR/MR lumbar spine wo con ?? IMPRESSION: ?? 1. Very mild multilevel lumbar spondylosis without evidence of ?? significant central canal narrowing, subarticular recess narrowing, ?? neural foraminal narrowing, or nerve root impingement. ?? 2. See the body the report for additional details and ancillary ?? findings. ? Electronically signed by: ??Cristino Keith MD ??02/15/2024 03:23 PM EST RP ? Dictated By: ?Cristino Keith MD ? Signed By: ?<Electronically signed by Cristino Keith MD in OV> ?02/15/24 1523 ? DD/ 1303 ? TD/TT: 01/03/24 1315 ? Investment Underwriter: ? Procedure Note Donotuseinterpreter, Image - 02/15/2024 [place] [address] Magnetic Resonance Report Signed Patient: Pippa Camilo IMR#: [id number] : 1960Acct:[id number] Age/Sex: 63 / FADM Date: 01/03/24 Loc: HO.MRI Attending Dr: Carter Troy NP Ordering Physician: CARTER TROY NP Date of Service: 01/03/24 Procedure(s): MR lumbar spine wo con Accession Number(s): [id number] cc: Chelsy,Edmund HERNANDEZ; CARTER TROY NP EXAMINATION: MR LUMBAR SPINE WITHOUT CONTRAST CLINICAL INFORMATION: Chronic low back pain with left sided sciatica. COMPARISON: No prior MRI. X-ray lumbar spine 09/07/2023. TECHNIQUE: Multiplanar multisequence MR imaging of the lumbar spine was done without IV contrast. Examination was performed on a 1.5 Charlene Siemens magnet, utilizing standard sequences. Exam submitted for review 02/15/2024 2:16 PM [facility]. FINDINGS: CORONAL ALIGNMENT: -Trace dextroconvex scoliosis. SAGITTAL ALIGNMENT: -Normal lumbar lordosis. -Normal alignment without subluxations. LUMBOSACRAL JUNCTION: -Normal. There are 5 alv-jnn-uwqoylk lumbar-type vertebral bodies. VERTEBRAL BODIES/BONE MARROW: -There are no compression deformities or evidence of fractures. No significant bone marrow edema, or abnormal infiltrating bone marrow signal. No endplate changes. DISCS: -Mild diffuse loss of disc signal spanning L2-S1 without significant loss of disc height. SPINAL CANAL: -No abnormal developmental findings. CONUS MEDULLARIS: -Terminates at L1-L2. Morphology and signal is normal. INTRADURAL NERVE ROOTS: - Within normal limits. -Fatty filum terminale. Axial Disc Space Images: T12-L1: No central canal or neural foraminal stenosis. Normal facets. L1-L2: No central canal or neural foraminal stenosis. Normal facets. L2-L3: There is a minimal left lateral and foraminal protrusion of disc material. There are mild hypertrophic degenerative facet changes bilaterally with mild posterior ligamentous thickening/infolding. No central canal narrowing. Minimal left radicular recess narrowing. Mild left neural foraminal narrowing. L3-L4: Minimal shallow bulging disc extending into both foraminal zones symmetrically. There is left-sided annular fissuring. This indents upon the ventral thecal sac, and coupled with moderate hypertrophic facet changes bilaterally with posterior ligamentous thickening/infolding, there is mild to moderate central canal narrowing, minimal bilateral subarticular recess narrowing, and minimal bilateral neural foraminal narrowing. L4-L5: Trace disc bulging present concentrically. Moderate hypertrophic degenerative facet changes bilaterally with mild posterior ligamentous thickening/infolding. There is mild central canal narrowing, minimal bilateral subarticular recess narrowing, and mild bilateral neural foraminal narrowing. L5-S1: No significant disc pathology. No central canal narrowing. There are mild to moderate hypertrophic degenerative facet changes. No subarticular recess narrowing. Minimal bilateral neural foraminal narrowing. IMAGED SI JOINTS: -Normal. PARAVERTEBRAL AND INCLUDED EXTRASPINAL SOFT TISSUES: -Normal. MR/MR lumbar spine wo con IMPRESSION: 1. Very mild multilevel lumbar spondylosis without evidence of significant central canal narrowing, subarticular recess narrowing, neural foraminal narrowing, or nerve root impingement. 2. See the body the report for additional details and ancillary findings. Electronically signed by: Cristino Keith MD 02/15/2024 03:23 PM [facility] Dictated By: Cristino Keith MD Signed By: <Electronically signed by Cristino Keith MD in OV> 02/15/24 1523 DD/ 1303 TD/TT: 01/03/24 1315 Investment Underwriter: [facility] MRI PROCEDURES Edited Result - Final * Albumin, Random Urine W/Creatinine (12/06/2023 10:00 AM EDT) Creatinine, Urine 123.16 mg/dL [facility] Microalbumin Urine 11.0 mg/L [facility] Microalbum Creatinine Ratio Ur 8.9 <30 ug/mg cr [facility] Comment:Albumin/Creatinine R atio Reference Ranges: Normal: < 30 ug/mg creatinine Microalbuminuria: 30 - 300 ug/mg creatinineClinical Albuminuria: > 300 ug/mg creatinine Urine (Urine, Random) 12/06/2023 10:00 AM EDT 12/06/2023 11:23 AM EDT us Edmund Valentino MD LAB URINE ORDERABLES Final Resul t [facility] [address] [place] [address] [phone] * (ABNORMAL) POCT HGB A1C (12/06/2023 9:03 AM EDT) Hemoglobin A1C 6.6(A) 4.0 - 6.0 % QC Media Lot # [id number] Lot# Expiration Date ,465,026 Blood 12/06/2023 9:03 AM EDT us Edmund Valentino MD POINT OF CARE TEST ENTER/EDIT OR DERABLES Final Result * BI Mammogram Screening Tomosynthesis Bilateral (07/05/2023 1:55 PM EDT) Anatomical Region Laterality Modality Breast Bilateral Mammography 07/05/2023 1:55 PM EDT Narrative 08/04/2023 1:26 PM EDT ? [facility] ? [address] ?[place] [address] ? Mammography Report ? Signed ? Patient: Renetta Colon,Pippa I ?MR#: [id number] ?? [id number] ? : 1960 ?Acct:[id number] ? Age/Sex: 63 / F ?ADM Date: 05/07/24 ? Loc: HO.MAMMO ? Attending Dr: aTnk Avina MD ? Ordering Physician: Tank Avina MD ?Results: 2Benig ?? n Findings ? Date of Service: 07/05/23 ?Follow Up: 1 Year From Orig ?? inal Mammogram ? Procedure(s): MM tomosynthesis screening BI ?? Accession Number(s): [id number] ? cc: Tank Avina MD; NameEdmund MD ? EXAMINATION: ?? MM SCREENING DIGITAL BREAST TOMOSYNTHESIS, BILATERAL ? CLINICAL INFORMATION: ? Screening. Asymptomatic. ? The patient is status post bilateral breast reduction. ? COMPARISON: ?? Mammography: This study is compared with prior exams dating back to ?? 2017. ? TECHNIQUE: ?? Digital breast tomosynthesis is performed in both the craniocaudal and ?? mediolateral oblique views along with computer-aided detection (CAD). ?? Synthesized 2D images are generated from the tomosynthesis. ? FINDINGS: ?? There are scattered areas of fibroglandular density (ACR BI-RADS breast ?? composition Category b). ? There are no significant masses, abnormal calcifications, or other ?? abnormalities. ? There is a ??tissue marker present in the right breast from prior benign ?? percutaneous biopsy. ? There are few, bilateral benign calcifications. ? Post reduction changes are present in each breast. ? MM/MM tomosynthesis screening BI ?? IMPRESSION: ?? No mammographic evidence of malignancy. ? ASSESSMENT: ? BI-RADS BI-RADS 2 - Benign Findings ? RECOMMENDATION: ?? Routine annual mammography screening. ? 1 year F/U ? This examination should not preclude the clinical evaluation of a ?? suspicious palpable abnormality. ? This patient's information was entered into a reminder system with a ?? target due date for their next mammogram. ? Dictated By: ?Adri Carpio MD ? Signed By: ?<Electronically signed by Adri Carpio MD in OV> ? 08/04/23 1323 ? DD/ 1355 ? TD/TT: ? Investment Underwriter: ? Procedure Note Donotuseinterpreter, Image - 08/04/2023 Cand[facility] [address] [place] [address] Mammography Report Signed Patient: Pippa Camilo IMR#: [id number] : 1960Acct:[id number] Age/Sex: 63 / FADM Date: 07/05/23 Loc: HO.MAMMO Attending Dr: Tank Avina MD Ordering Physician: Tank Avina MDResults: 2Benig n Findings Date of Service: 07/05/23Follow Up: 1 Year From Orig inal Mammogram Procedure(s): MM tomosynthesis screening BI Accession Number(s): [id number] cc: Tank Avina MD; Name,Edmund HERNANDEZ EXAMINATION: MM SCREENING DIGITAL BREAST TOMOSYNTHESIS, BILATERAL CLINICAL INFORMATION: Screening. Asymptomatic. The patient is status post bilateral breast reduction. COMPARISON: Mammography: This study is compared with prior exams dating back to 2017. TECHNIQUE: Digital breast tomosynthesis is performed in both the craniocaudal and mediolateral oblique views along with computer-aided detection (CAD). Synthesized 2D images are generated from the tomosynthesis. FINDINGS: There are scattered areas of fibroglandular density (ACR BI-RADS breast composition Category b). There are no significant masses, abnormal calcifications, or other abnormalities. There is a tissue marker present in the right breast from prior benign percutaneous biopsy. There are few, bilateral benign calcifications. Post reduction changes are present in each breast. MM/MM tomosynthesis screening BI IMPRESSION: No mammographic evidence of malignancy. ASSESSMENT: BI-RADS BI-RADS 2 - Benign Findings RECOMMENDATION: Routine annual mammography screening. 1 year F/U This examination should not preclude the clinical evaluation of a suspicious palpable abnormality. This patient's information was entered into a reminder system with a target due date for their next mammogram. Dictated By: Adri Carpio MD Signed By: <Electronically signed by Adri Carpio MD in OV> 08/04/23 1323 DD/ 1355 TD/TT: Investment Underwriter: [facility] External Provider IMG BI PROCEDURES Final Result * (ABNORMAL) Lipid Panel, Standard (06/07/2023 11:34 AM EDT) Triglycerides 125 <150 mg/dL [facility] Comment:Desirable Triglyceri de: less than 150 mg/dLBorderline High Triglyceride 150-199 mg/dLHigh Triglyceride: 200-499 mg/dLVery High Triglyceride: greater than or equal to 5OO mg/dL Cholesterol 225(H) <200 mg/dL [facility] Comment:Desirable Cholestero l: less than 200 mg/dLBorderline High Cholesterol: 200-239 mg/dLHigh Cholesterol: greater than 239 mg/dL LDL Cholesterol Calculated 141(H) <100 mg/dL [facility] Comment:Desirable LDL: less than 100 mg/dLNear Optimal/Above Optimal LDL: 110- 129 mg/dLBorderline High LDL: 130-159 mg/dLHigh LDL: 160-189 mg/dLVery High LDL: greater than or equal to 190 mg/dL HDL Cholesterol 59 >40 mg/dL [facility] Comment:Desirable HDL: great er than 40 mg/dL Note: This HDL assay may give artificially low results in patients with liver disease. Blood Venous blood specimen / Unknown 06/07/2023 11:34 AM EDT 06/07/2023 1:12 PM EDT Beth Blanco SHIPPING RECEIVING MANAGER LAB BLOOD ORDERABLES Final Resul t [facility] [address] [place] [address] [phone] * Diabetes Eye Exam (03/29/2023) Eye Exam Normal Normal 03/29/2023 us Edmund Name HEALTH MAINTENANCE Final Result * Hm Colonoscopy (05/06/2021) Colonoscopy Normal Normal Narrative Rita Jimenez - 05/06/2021 Recommended 5 year follow up Historical Provider HEALTH MAINTENANCE Final Result from Last 3 Months or Most Recently Relevant to Health Maintenance Insurance [facility] - [facility] Care Teams Stone And Plate Preparer Apprentice Relationship Specialty Start Date End Date Name, MD Edmund [address] [place] [id number] PCP - General Family Medicine 04/04/15
--- OUTSIDE RECORDS SUMMARY | 2024-03-26 16:16 | XMS_ITS | Encounter Summary ---
[facility] Organization [facility] Address [address] [place] [address] Care Team Providers Care Family Resource Management Professor Name Role Phone NameEdmund MD Primary Care Provider Unavailabl e Reason for Visit * Reason Onset Date Comments er follow up 07/20/2012 Christy Encounter Details Date Type Department Care Team Description 07/20/2012 Telephone Adult Medicine [address] [address] Name, MD Edmund er follow up (Gee) Social History Tobacco Use Types Packs/Day Years Used Date Smoking Tobacco: Former Smokeless Tobacco: Never Alcohol Use Standard Drinks/Week Comments No 0 (1 standard drink = 0.6 oz pur e alcohol) Sex Assigned at Date Recorded Not on file documented as of this encounter Miscellaneous Notes * Telephone Encounter - Abigail Ozuna M.A. - 07/20/2012 12:40 PM EDT Notes given to Ember chaney * Telephone Encounter - Freya Kang - 07/20/2012 12:11 PM EDT EMERGENCY DEPARTMENT FOLLOW-UP CONTACT: Christy Did they go to the ER? : Yes Which ER did they go to? : [facility] Was the patient admitted? : No. How is the patient feeling? : no change in health status Disposition? : Appointment made for patient at [facility] in 5 day(s) Comments: pain in right side of brain documented in this encounter Plan of Treatment Not on file documented as of this encounter Visit Diagnoses Not on filedocumented in this encounter Care Teams Family Resource Management Professor Relationship Specialty Start Date End Date Name, MD Edmund PCP - General Internal Medicine 01/28/11 documented as of this encounter
--- OUTSIDE RECORDS SUMMARY | 2024-03-26 16:16 | XMS_ITS | Encounter Summary ---
Author Organization [facility] Address [address] [place] [address] Care Team Providers Care Boat Carpenter Mechanic Name Role Phone Edmund Valentino MD Primary Care Provider Unavailabl e Encounter Details Date Type Department Care Team Description 08/30/2013 Orders Only Adult Medicine [address] [address] Name, MD Edmund Social History Tobacco Use [...] on filedocumented in this encounter Care Teams Boat Carpenter Mechanic Relationship Specialty Start Date End Date Edmund Valentino MD PCP - General Internal Medicine 01/28/11 documented as of this encounter
--- OUTSIDE RECORDS SUMMARY | 2024-03-26 16:16 | XMS_ITS | Encounter Summary ---
Author Organization [employer] [facility] Address [address] [place] [address] Care Team Providers Care Shrimp Pond Laborer Name Role Phone Name, Edmund HERNANDEZ Primary Care Provider Unavailabl e Encounter Details Date Type Department Care Team Description 08/19/2014 Top Icer Report Medical Records [address] [place] [address] Freddie Flores Social History Tobacco Use Types Packs/Day Years [...] on filedocumented in this encounter Care Teams Shrimp Pond Laborer Relationship Specialty Start Date End Date Name, MD Edmund PCP - General Internal Medicine 01/28/11 documented as of this encounter
--- OUTSIDE RECORDS SUMMARY | 2024-03-26 16:16 | XMS_ITS | Encounter Summary ---
Author Organization [employer] Address [address] [place] [address] 7 [place] [address] Care Team Providers Care Manager Market Research Name Role Phone Name, Edmund HERNANDEZ Primary Care Provider [phone] Encounter Details Date Type Department Care Team (Late st Contact Info) Description 05/12/2022 Orders Only [facility] [address] [place] [address] Sarah Sherwood LPN Social History Tobacco Use Types Packs/Day Years Used Date Smoking Tobacco: Never Smokeless Tobacco: Never Alcohol Use Standard Drinks/Week Comments Never 0 (1 standard drink = 0.6 oz pur e alcohol) Depression Answer Date Recorded Patient Health Questionnaire-2 Score 0 04/06/2022 Comments Unknown Sex and Gender Information Value [...] Description 04/19/2024 9:45 AM EST Office Visit [facility] MEDICINE [address] [place], [place] [phone] Name, MD Edmund [address] [place] [address] 05/16/2024 10:00 AM EDT Office Visit [facility] ADULT DENTAL [address] [place], [place] [phone] Lillie Witt documented as of this encounter Procedures Procedure Name Priority Date/Time Associated Diagnosis Comments VASC US LOWER EXTREMITY VENOUS DUPLEX RIGHT Routine 06/11/2022 2:15 PM EDT XR CHEST 2 VIEWS Routine 05/19/2022 5:03 PM EDT documented in this encounter Results * Vascular US lower extremity venous duplex right (06/11/2022 2:15 PM EDT) 06/11/2022 2:15 PM EDT Narrative IMAGING - 06/11/2022 3:03 PM EDT ? [facility] ?[address] ?[place] [address] ? Ultrasound Report ? Signed ? Patient: Renetta Colon,Pippa I ?MR#: [id number] ?? [id number] ? : 1960 ?Acct:[id number] ? Age/Sex: 61 / F ?ADM Date: 06/11/22 ? Loc: HO.US ? Attending Dr: Uli Prakash MD ? Ordering Physician: ULI PRAKASH MD ?? Date of Service: 06/11/22 ?? Procedure(s): US venous duplex LE RT ?? Accession Number(s): [id number] ? cc: ULI PRAKASH MD ? EXAMINATION: ? US VENOUS ULTRASOUND WITH DOPPLER LOWER EXTREMITY, RIGHT ? CLINICAL INFORMATION: ? Right lower extremity pain and swelling ? COMPARISON: ? None available. ? TECHNIQUE: ?? Ultrasound of the deep veins is performed from the hip to the calf with ?? compression sonography and color and pulse Doppler assessment. Spectral ?? analysis with color-flow imaging is performed. ? FINDINGS: ?? There is normal venous compression and respiratory variation and ?? augmented flow. The visualized common femoral vein, superficial femoral ?? vein, profunda femoral vein, popliteal vein, and the trifurcation ?? region shows no evidence of deep venous thrombosis. ?? There is a small ?? 1.9 x 0.7 x 1.4 cm popliteal fossa hypoechoic region consistent with ?? small up to fossa cyst. ? US/US venous duplex LE RT ?? IMPRESSION: ?? No acute DVT demonstrated in the right lower extremity. ? Small popliteal fossa cyst. ? Dictated By: ?Fredy Williamson MD ? Signed By: ?<Electronically signed by Fredy Williamson MD in OV> ?06/11/22 1500 ? DD/ 1415 ? TD/TT: ? Fil[employer]et P8 Developer: JOSE ? Procedure Note Donotuseinterpreter, Image - 06/11/2022 [place] [address] Ultrasound Report Signed Patient: Pippa Camilo IMR#: [id number] : 1960Acct:[id number] Age/Sex: 61 / FADM Date: 06/11/22 Loc: HO.US Attending Dr: Uli Prakash MD Ordering Physician: ULI PRAKASH MD Date of Service: 06/11/22 Procedure(s): US venous duplex LE RT Accession Number(s): [id number] cc: ULI PRAKASH MD EXAMINATION: US VENOUS ULTRASOUND WITH DOPPLER LOWER EXTREMITY, RIGHT CLINICAL INFORMATION: Right lower extremity pain and swelling COMPARISON: None available. TECHNIQUE: Ultrasound of the deep veins is performed from the hip to the calf with compression sonography and color and pulse Doppler assessment. Spectral analysis with color-flow imaging is performed. FINDINGS: There is normal venous compression and respiratory variation and augmented flow. The visualized common femoral vein, superficial femoral vein, profunda femoral vein, popliteal vein, and the trifurcation region shows no evidence of deep venous thrombosis. There is a small 1.9 x 0.7 x 1.4 cm popliteal fossa hypoechoic region consistent with small up to fossa cyst. US/US venous duplex LE RT IMPRESSION: No acute DVT demonstrated in the right lower extremity. Small popliteal fossa cyst. Dictated By: Fredy Williamson MD Signed By: <Electronically signed by Fredy Williamson MD in OV> 06/11/22 1500 DD/ 1415 TD/TT: Filenet P8 Developer: JOSE us [facility] External Provider CV VASC ULAR PROCEDURES Edited Result - Final IMAGING [address] [place] [address] * XR Chest 2 Views (05/19/2022 5:03 PM EDT) Anatomical Region Laterality Modality Chest Radiographic Suzanne ging 05/19/2022 5:03 PM EDT Narrative 05/25/2022 1:42 PM EDT ? [facility] ?[address] ?[place] [address] ?XRay Report ? Signed ? Patient: Renetta Colon,Pippa I ?MR#: [id number] ?? [id number] ? : 1960 ?Acct:[id number] ? Age/Sex: 61 / F ?ADM Date: 05/19/22 ? Loc: HO.XRAY ? Attending Dr: Uli Prakash MD ? Ordering Physician: ULI PRAKASH MD ?? Date of Service: 05/19/22 ?? Procedure(s): XR chest 2V ?? Accession Number(s): [id number] ? cc: ULI PRAKASH MD ? EXAMINATION: ?? XR CHEST ? CLINICAL INFORMATION: ?? Cough. ? COMPARISON: ?? Chest radiographs, most recently 03/23/2022. ? TECHNIQUE: ?? Frontal and lateral views of the chest were obtained. ? FINDINGS: ?? The heart, great vessels, pulmonary vasculature and mediastinum are ?? normal. The lungs show no focal infiltrate, effusion or pneumothorax. ?? There is mild elevation of the right hemidiaphragm. There is no acute ?? osseous abnormality. Upper abdominal surgical clips are noted. ? XR/XR chest 2V ?? IMPRESSION: ?? No active cardiopulmonary disease. ? Dictated By: ?Shabbir Goldman MD ? Signed By: ?<Electronically signed by Shabbir Goldman MD in OV> ? 05/25/22 1340 ? DD/ 1703 ? TD/TT: ? Filenet P8 Developer: SERGIO ? Procedure Note Perfecto Nair - 05/25/[address] [address] XRay Report Signed Patient: Pippa Camilo IMR#: [id number] : 1960Acct:[id number] Age/Sex: 61 / FADM Date: 05/19/22 Loc: HO.XRAY Attending Dr: Uli Prakash MD Ordering Physician: ULI PRAKASH MD Date of Service: 05/19/22 Procedure(s): XR chest 2V Accession Number(s): [id number] cc: ULI PRAKASH MD EXAMINATION: XR CHEST CLINICAL INFORMATION: Cough. COMPARISON: Chest radiographs, most recently 03/23/2022. TECHNIQUE: Frontal and lateral views of the chest were obtained. FINDINGS: The heart, great vessels, pulmonary vasculature and mediastinum are normal. The lungs show no focal infiltrate, effusion or pneumothorax. There is mild elevation of the right hemidiaphragm. There is no acute osseous abnormality. Upper abdominal surgical clips are noted. XR/XR chest 2V IMPRESSION: No active cardiopulmonary disease. Dictated By: Shabbir Goldman MD Signed By: <Electronically signed by Shabbir Goldman MD in OV> 05/25/22 1340 DD/ 1703 TD/TT: Filenet P8 Developer: SERGIO Authorahsan Provider Result Type Result Stat [facility] External Provider IMG XR PROCEDURES Edited Result - Final documented in this encounter Visit Diagnoses Not on filedocumented in this encounter Care Teams Manager Market Research Relationship Specialty Start Date End Date Name, MD Edmund [address] [place] [address] PCP - General Family Medicine 04/04/15 documented as of this encounter
--- OUTSIDE RECORDS SUMMARY | 2024-03-26 16:16 | XMS_ITS | Encounter Summary ---
Author Organization [employer] [facility] Address [address] [place] [address] 7 [place] [address] Care Team Providers Care Court Operations Clerk Name Role Phone Name, Edmund HERNANDEZ Primary Care Provider [phone] Encounter Details Date Type Department Care Team (Latest Contact Info) Description 08/26/2020 Abstract [facility] CONVERSIONS Dental, Provider, DDS Social History Tobacco Use Types Packs/Day Years Used Date Smoking Tobacco: Never Assessed Comments Unknown Sex and Gender Information Value [...] Description 04/19/2024 9:45 AM EST Office Visit [facility] MEDICINE [address] [place] [address] Name, MD Edmund [address] [place] [address] 05/16/2024 10:00 AM EDT Office Visit [facility] ADULT DENTAL [address] [place], [place] [phone] Lillie Witt documented as of this encounter Visit Diagnoses Not on filedocumented in this encounter Care Teams Court Operations Clerk Relationship Specialty Start Date End Date NameEdmund MD [address] [place] [address] PCP - General Family Medicine 04/04/15 documented as of this encounter
--- OUTSIDE RECORDS SUMMARY | 2024-03-26 16:16 | XMS_ITS | Encounter Summary ---
Author Organization [facility] [facility] Address [address] [place] [address] Care Team Providers Care Founder Ceo & President Name Role Phone Name, Edmund HERNANDEZ Primary Care Provider Unavailabl e Encounter Details Date Type Department Care Team Description 05/30/2015 Business Doc Medical Records [address] [place] [address] Abstract, Provider Social History Tobacco Use Types [...] on filedocumented in this encounter Care Teams Founder Ceo & President Relationship Specialty Start Date End Date Name, MD Edmund PCP - General Internal Medicine 01/28/11 documented as of this encounter
--- OUTSIDE RECORDS SUMMARY | 2024-03-26 16:16 | XMS_ITS | Encounter Summary ---
Author Organization [facility] Address [address] [place] [address] Care Team Providers Care Painter Hand Name Role Phone Name, Edmund HERNANDEZ Primary Care Provider Unavailabl e Encounter Details Date Type Department Care Team Description 05/08/2014 Batch And Furnace Operator Report Medical Records [address] [place] [address] Karsten Kohli MD Social History Tobacco Use [...] on filedocumented in this encounter Care Teams Painter Hand Relationship Specialty Start Date End Date Name, MD Edmund PCP - General Internal Medicine 01/28/11 documented as of this encounter
--- OUTSIDE RECORDS SUMMARY | 2024-03-26 16:16 | XMS_ITS | Encounter Summary ---
Author Organization [employer] Address [address] [facility] 7 [place] [address] Care Team Providers Care Knitted Goods Shaper Name Role Phone Name, Edmund HERNANDEZ Primary Care Provider Reason for Visit * Reason Comments Med Refill Encounter Details Date Type Department Care Team ([facility] st Contact Info) Description 01/27/2024 Refill [facility] MEDICINE [address] [place], [place] [phone] Beth Blanco NP [address] [place] [address] Social History Tobacco Use Types Packs/Day Years [...] Description 04/19/2024 9:45 AM EST Office Visit [facility] MEDICINE [address] [place] [address] Name, MD Edmund [address] [place] [address] 05/16/2024 10:00 AM EDT Office Visit [facility] ADULT DENTAL [address] [place] [address] Lillie Witt documented as of this encounter Visit Diagnoses Not on filedocumented in this encounter Additional Health Concerns Assessment Noted Time PHQ-9 Depression Total Score: 0 07/29/19 24 9:26 AM EDT documented as of this encounter Care Teams Knitted Goods Shaper Relationship Specialty Start Date End Date Name, MD Edmund [address] [place] [address] PCP - General Family Medicine 04/04/15 documented as of this encounter
--- OUTSIDE RECORDS SUMMARY | 2024-03-26 16:16 | XMS_ITS | Encounter Summary ---
Author Organization [employer] Address [address] [place] [address] 7 [place] [address] Care Team Providers Care Hedge Fund Manager Name Role Phone Name, Edmund HERNANDEZ Primary Care Provider [phone] Reason for Referral * Consultation (Routine) - Authorized Specialty Diagnoses / Procedures Referred By Contlai t Referred To Contact Orthopaedic Surgery Diagnoses Chronic bilateral low back pain with left-sided sciatica Carter Troy ANP [address] [place] [address] Phone: tel: fax: [facility] Referral ID Status Reason Start Date Expiration Date Visits Requested Visits Authorized [id number] Authorized Specialty Services Required 03/07/2024 03/07/2025 1 1 Reason for Visit * Reason Onset Date Comments Results 03/07/2024 Encounter Details Date Type Department Care Team (Late st Contact Info) Description 03/07/2024 Telephone [facility]IC[facility] [address] [place] [address] Daisy Noriega, BHAVNA Results Social History Tobacco Use Types Packs/Day Years [...] AM EDT documented as of this encounter Miscellaneous Notes * Addendum Note - OMAYRA Agrawal - 03/07/2024 11:34 AM ESTAddended by: CARTER TROY on: 03/07/2024 11:34 AM Modules accepted: Orders * Telephone Encounter - Daisy Noriega RN - 03/07/2024 11:16 AM EST Pt requesting copy of MRI results, mailed to address on file. * Telephone Encounter - Daisy Noriega RN - 03/07/2024 10:33 AM EST Telephone call to pt using [facility] coil inspector Dom #[id number]. Advised pt that MRI results did not show significantly new findings but it did show spondylosis or wear and tear as well as some bulging discs in the spine. Advised pt to follow up with administrative program specialist and that provider also recommends referral to [facility], pt open to this. Advised her letter would be sent in the mail with appt details once approved by insurance. Pt verbalized understanding, in agreement with plan. * Telephone Encounter - Daisy Noriega RN - 03/07/2024 10:15 AM EST ----- Message from Carter Troy sent at 03/07/2024 9:32 AM EST ----- Please let pt know, MRI did not reveal any hugely significant new findings - did show the spondylosis (wear and tear) her orthopedist is aware of, as well as a few mildly bulging discs, and some changes most likely related to the spondylosis. At this time I would recommend she follow w/ ortho for her hip pain and if she is interested, would recommend [facility] eval and can place referral if she agrees. documented in this encounter Plan of Treatment Upcoming Encounters Date Type Department Care Team (Late st Contact Info) Description 04/19/2024 9:45 AM EST Office Visit [facility] MEDICINE [address] [place] [address] Name, MD Edmund [address] [place] [address] 05/16/2024 10:00 AM EDT Office Visit [facility] ADULT DENTAL [address] [place] [address] Lillie Witt Scheduled Referrals Name Type Priority Associated Diagnoses Order Schedule Referral to Orthopaedic Surgery Outpatient Referral Routine Chronic bilateral low back pain with left-sided sciatica Expected: 03/07/2024 (Approximate), Expires: 03/07/2025 documented as of this encounter Visit Diagnoses Diagnosis Chronic bilateral low back pain with left-sided sciatica- Primary documented in this encounter Additional Health Concerns Assessment Noted Time PHQ-9 Depression Total Score: 0 07/29/19 24 9:26 AM EDT documented as of this encounter Care Teams Hedge Fund Manager Relationship Specialty Start Date End Date Name, MD Edmund [address] [place] [address] PCP - General Family Medicine 04/04/15 documented as of this encounter
--- OUTSIDE RECORDS SUMMARY | 2024-03-26 16:16 | XMS_ITS | Encounter Summary ---
Author Organization [facility] Address [address] [place] [address] Care Team Providers Care Surveyor'S Assistant Name Role Phone Name, Edmund HERNANDEZ Primary Care Provider Unavailabl e Encounter Details Date Type Department Care Team Description 11/15/2013 Release of Information Medical Records [address] [place] [address] Abstract, Provider Social History Tobacco Use Types [...] on filedocumented in this encounter Care Teams Surveyor'S Assistant Relationship Specialty Start Date End Date Name, MD Edmund PCP - General Internal Medicine 01/28/11 documented as of this encounter
--- OUTSIDE RECORDS SUMMARY | 2024-03-26 16:16 | XMS_ITS | Encounter Summary ---
Author Organization [employer] [facility] Address [address] [place] [address] Care Team Providers Care Crusher Name Role Phone Name, Edmund HERNANDEZ Primary Care Provider Unavailabl e Encounter Details Date Type Department Care Team Description 07/19/2014 Hereditary Cancer Qu iz Results Medical Records [address] [place] [address] Abstract, Provider Social History Tobacco Use Types [...] on filedocumented in this encounter Care Teams Crusher Relationship Specialty Start Date End Date Name, MD Edmund PCP - General Internal Medicine 01/28/11 documented as of this encounter
--- OUTSIDE RECORDS SUMMARY | 2024-03-26 16:17 | XMS_ITS | Encounter Summary ---
Author Organization [employer] Address [address] [facility] 7t [place] [address] Care Team Providers Care Ribbon Lapper Tender Name Role Phone Name, Edmund HERNANDEZ Primary Care Provider [phone] Reason for Visit * Reason Comments Med Refill Encounter Details Date Type Department Care Team ([facility] st Contact Info) Description 05/06/2023 Refill [facility] MEDICINE [address] [place], [place] [phone] Name, MD Edmund [address] [place] [address] Social History Tobacco Use Types Packs/Day Years Used Date Smoking Tobacco: Never Smokeless Tobacco: Never Alcohol Use Standard Drinks/Week Comments Never 0 (1 standard drink = 0.6 oz pur e alcohol) Housing Stability Answer Date Recorded What is [...] Description 04/19/2024 9:45 AM EST Office Visit [facility] MEDICINE [address] [place] [address] Name, MD Edmund [address] [place] [address] 05/16/2024 10:00 AM EDT Office Visit [facility] ADULT DENTAL [address] [place] [address] Lillie Witt documented as of this encounter Visit Diagnoses Not on filedocumented in this encounter Care Teams Ribbon Lapper Tender Relationship Specialty Start Date End Date Name, MD Edmund [address] [place] [address] PCP - General Family Medicine 04/04/15 documented as of this encounter
--- OUTSIDE RECORDS SUMMARY | 2024-03-26 16:17 | XMS_ITS | Encounter Summary ---
Author Organization [employer] Address [address] [facility] 7t [place] [address] Care Team Providers Care Aviation Project Manager Name Role Phone Name, Edmund HERNANDEZ Primary Care Provider [phone] Encounter Details Date Type Department Care Team ([facility] st Contact Info) Description 03/13/2024 Telephone [facility] MEDICINE [address] [place], [place] [phone] Isabel Salas, ANP [address] [place], [place] [phone] Social History Tobacco Use Types Packs/Day Years [...] Description 04/19/2024 9:45 AM EST Office Visit [facility] MEDICINE [address] [place] [address] Name, MD Edmund [address] [place] [address] 05/16/2024 10:00 AM EDT Office Visit [facility] ADULT DENTAL [address] [place] [address] Lillie Witt documented as of this encounter Visit Diagnoses Not on filedocumented in this encounter Additional Health Concerns Assessment Noted Time PHQ-9 Depression Total Score: 0 07/29/19 24 9:26 AM EDT documented as of this encounter Care Teams Aviation Project Manager Relationship Specialty Start Date End Date Name, MD Edmund [address] [place] [address] PCP - General Family Medicine 04/04/15 documented as of this encounter
--- OUTSIDE RECORDS SUMMARY | 2024-03-26 16:17 | XMS_ITS | Encounter Summary ---
Author Organization [employer] Address [address] [facility] 7t [place] [address] Care Team Providers Care Game Engineer Name Role Phone Name, Edmund HERNANDEZ Primary Care Provider [phone] Reason for Visit * Reason Comments Med Refill Encounter Details Date Type Department Care Team ([facility] st Contact Info) Description 06/24/2023 Refill [facility] MEDICINE [address] [place], [place] [phone] Beth Blanco, SALVATORE [address] [place] [address] Social History Tobacco Use Types Packs/Day Years [...] Description 04/19/2024 9:45 AM EST Office Visit [facility] MEDICINE [address] [place] [address] Name, MD Edmund [address] [place] [address] 05/16/2024 10:00 AM EDT Office Visit [facility] ADULT DENTAL [address] [place] [address] Lillie Witt documented as of this encounter Visit Diagnoses Not on filedocumented in this encounter Care Teams Game Engineer Relationship Specialty Start Date End Date Name, MD Edmund [address] [place] [address] PCP - General Family Medicine 04/04/15 documented as of this encounter
--- OUTSIDE RECORDS SUMMARY | 2024-03-26 16:17 | XMS_ITS | Encounter Summary ---
Author Organization [employer] Address [address] [facility] 7 [place] [address] Care Team Providers Care Automobile Locator Name Role Phone Name, Edmund HERNANDEZ Primary Care Provider [phone] Reason for Visit * Reason Comments Med Refill Encounter Details Date Type Department Care Team ([facility] st Contact Info) Description 01/09/2024 Refill [facility] [address] [place], [place] [phone] Name, MD Edmund [address] [place] [address] Social History Tobacco Use Types Packs/Day Years [...] Description 04/19/2024 9:45 AM EST Office Visit [facility] [address] [place] [address] Name, MD Edmund [address] [place] [address] 05/16/2024 10:00 AM EDT Office Visit [facility] ADULT DENTAL [address] [place] [address] Llilie Witt documented as of this encounter Visit Diagnoses Not on filedocumented in this encounter Additional Health Concerns Assessment Noted Time PHQ-9 Depression Total Score: 0 07/29/19 24 9:26 AM EDT documented as of this encounter Care Teams Automobile Locator Relationship Specialty Start Date End Date Name, MD Edmund [address] [place] [address] PCP - General Family Medicine 04/04/15 documented as of this encounter
--- OUTSIDE RECORDS SUMMARY | 2024-03-26 16:17 | XMS_ITS | Encounter Summary ---
Author Organization [employer] Address [address] [facility] 7 [place] [address] Care Team Providers Care Sales Representative Printing Paper Name Role Phone Name, Edmund HERNANDEZ Primary Care Provider [phone] Reason for Visit * Reason Comments Med Refill Encounter Details Date Type Department Care Team ([facility] st Contact Info) Description 10/04/2023 Refill [facility] [address] [place], [place] [phone] Name, MD Edmund [address] [place] [address] Mild intermittent asthma, unspecified whether complicated Social History Tobacco Use Types Packs/Day Years [...] Description 04/19/2024 9:45 AM EST Office Visit [facility] MED[facility]INE [address] [place] [place] [address] Name, MD Edmund [address] [place] [address] 05/16/2024 10:00 AM EDT Office Visit [facility] ADULT DENTAL [address] [place] [place] [address] Lillie Witt documented as of this encounter Visit Diagnoses Diagnosis Mild intermittent asthma, unspecified whether complicated documented in this encounter Additional Health Concerns Assessment Noted Time PHQ-9 Depression Total Score: 0 07/29/19 24 9:26 AM EDT documented as of this encounter Care Teams Sales Representative Printing Paper Relationship Specialty Start Date End Date Name, MD Edmund [address] [place] [address] PCP - General Family Medicine 04/04/15 documented as of this encounter
--- OUTSIDE RECORDS SUMMARY | 2024-03-26 16:17 | XMS_ITS | Encounter Summary ---
Author Organization [facility] Address [address] [place] [address] 7 [place] [address] Care Team Providers Care Cake Cutter Machine Name Role Phone Name, Edmund HERNANDEZ Primary Care Provider [phone] Reason for Visit * Reason Onset Date Comments Pre OP 06/30/2022 Encounter Details Date Type Department Care Team (Late st Contact Info) Description 06/30/2022 Telephone [facility] MED[facility]INE [address] [place], [place] [phone] Name, MD Edmund [address] [place] [address] Pre OP Social History Tobacco Use Types Packs/Day Years [...] Orientation Straight 12/28/2021 10 :29 AM EDT COVID-19 Exposure Response Date Recorded In the last 10 days, have yo u been in contact with someone who was confirmed or suspected to have Coronavirus/COVID-19? No / Unsure 06/11/2022 10:46 AM EDT documented as of this encounter Miscellaneous Notes * Telephone Encounter - Carmita Elder RN - 07/09/2022 1:55 PM EDT Returned call to Bill regarding message below. Pt is having L foot tendon repair on 09/22/[address] Cobb at [facility]. Pt will be under general and popliteal block. Pt does not need an EKG as it will ordered elsewhere. Pt ill be getting labs ordered by Cardio but will still need Glucose, A1C and BMP. Pt scheduled 08/24/22 with PCP. Bill will contact pt and inform. Notes will be faxed over for PCP review. * Telephone Encounter - Rey Pemberton - 07/08/2022 2:33 PM EDT Tc from Bill from [facility] returning call for PRE-OP appt , please see notes also stated surgeon will place order for EKG. Please contact at [phone] * Telephone Encounter - Julee Chung - 06/30/2022 1:46 PM EDT TC from Bill from [facility] requesting a PRE-OP Location: [address] Procedure: tendon repair Date of procedure: 09/22/22 @ 11:30am Labs: yes Ekg: yes Anesthesia Type : general and popliteal block Surgeon Name: donna tomlinson documented in this encounter Plan of Treatment Upcoming Encounters Date Type Department Care Team (Late st Contact Info) Description 04/19/2024 9:45 AM EST Office Visit [facility] MED[facility]INE [address] [place] [address] Name, MD Edmund [address] [place] [address] 05/16/2024 10:00 AM EDT Office Visit [facility] ADULT DENTAL [address] [place] [address] Witt, Lillie documented as of this encounter Visit Diagnoses Not on filedocumented in this encounter Care Teams Cake Cutter Machine Relationship Specialty Start Date End Date Name, MD Edmund [address] [place] [address] PCP - General Family Medicine 04/04/15 documented as of this encounter
--- OUTSIDE RECORDS SUMMARY | 2024-03-26 16:17 | XMS_ITS | Encounter Summary ---
Author Organization [employer] Address [address] [facility] 7 [place] [address] Care Team Providers Care Early Childhood Worker Name Role Phone Name, Edmund HERNANDEZ Primary Care Provider [phone] Reason for Visit * Reason Comments Med Refill Encounter Details Date Type Department Care Team ([facility] st Contact Info) Description 09/23/2023 Refill [facility] MED[facility]INE [address] [place], [place] [phone] Name, MD Edmund [address] [place] [address] Mild intermittent asthma, unspecified whether complicated Social [...] Description 04/19/2024 9:45 AM EST Office Visit [facility] MED[facility]INE [address] [place] [address] Name, MD Edmund [address] [place] [address] 05/16/2024 10:00 AM EDT Office Visit [facility] ADULT DENTAL [address] [place] [address] Lillie Witt documented as of this encounter Visit Diagnoses Diagnosis Mild intermittent asthma, unspecified whether complicated documented in this encounter Additional Health Concerns Assessment Noted Time PHQ-9 Depression Total Score: 0 07/29/19 24 9:26 AM EDT documented as of this encounter Care Teams Early Childhood Worker Relationship Specialty Start Date End Date Name, MD Edmund [address] [place] [address] PCP - General Family Medicine 04/04/15 documented as of this encounter
--- OUTSIDE RECORDS SUMMARY | 2024-03-26 16:17 | XMS_ITS | Encounter Summary ---
Author Organization [employer] Address [address] [facility] 7 [place] [address] Care Team Providers Care Operations Research Engineer Name Role Phone Name, Edmund HERNANDEZ Primary Care Provider [phone] Reason for Visit * Reason Onset Date Comments Results 03/25/2023 Encounter Details Date Type Department Care Team ([facility] st Contact Info) Description 03/25/2023 Telephone [facility] [address] [place], [place] [phone] Name, MD Edmund [address] [place] [address] Results Social History Tobacco Use Types Packs/Day [...] encounter Miscellaneous Notes * Telephone Encounter - Jaky Grover RN - 03/25/2023 11:12 AM EST T/C to pt. Through [facility] id - [id number] to inform pt.'s normal x- ray result. Pt. States she already received call from clinic also states she was advised to give call on Tuesday to schedule apt. If symptoms does not improve. Pt. Also advised to go to nearest ED in case of worsening symptoms. Pt. Verbally agreed and understood. * Telephone Encounter - Rey Pemberton - 03/25/2023 8:55 AM EST TC from pt requesting call back regarding Results. Type of results: XRAY Date when done: 03/23/23 Facility: [facility] Please contact at [phone] documented in this encounter Plan of Treatment Upcoming Encounters Date Type Department Care Team (Late st Contact Info) Description 04/19/2024 9:45 AM EST Office Visit [facility] MED[facility]INE [address] [place] [address] Name, MD Edmund [address] [place] [address] 05/16/2024 10:00 AM EDT Office Visit [facility] ADULT DENTAL [address] [place] [address] Lillie Witt documented as of this encounter Visit Diagnoses Not on filedocumented in this encounter Care Teams Operations Research Engineer Relationship Specialty Start Date End Date Name, MD Edmund [address] [place] [address] PCP - General Family Medicine 04/04/15 documented as of this encounter
--- OUTSIDE RECORDS SUMMARY | 2024-03-26 16:17 | XMS_ITS | Encounter Summary ---
Author Organization [employer] Address [address] [facility] 7 [place] [address] Care Team Providers Care Chief Technician X Ray Name Role Phone Name, Edmund HERNANDEZ Primary Care Provider [phone] Reason for Visit * Reason Onset Date Comments Appointment Request 05/16/2023 Encounter Details Date Type Department Care Team ([facility] st Contact Info) Description 05/16/[address] [facility] MEDICINE [address] [place], [place] [phone] Name, MD Edmund [address] [place], [place] [phone] Appointment Request Social History Tobacco Use Types Packs/Day Years [...] encounter Miscellaneous Notes * Telephone Encounter - Estevan Coello - 05/16/2023 9:09 AM EDT Tc from patient calling to cancel and reschedule appt for 05/15 typewriter assembly and parts inspector did cancel per patients request documented in this encounter Plan of Treatment Upcoming Encounters Date Type Department Care Team (Late st Contact Info) Description 04/19/2024 9:45 AM EST Office Visit [facility] MEDICINE [address] [place] [address] Name, MD Edmund [address] [place] [address] 05/16/2024 10:00 AM EDT Office Visit [facility] ADULT DENTAL [address] [place] [address] Lillie Witt documented as of this encounter Visit Diagnoses Not on filedocumented in this encounter Care Teams Chief Technician X Ray Relationship Specialty Start Date End Date Name, MD Edmund [address] [place] [address] PCP - General Family Medicine 04/04/15 documented as of this encounter
--- OUTSIDE RECORDS SUMMARY | 2024-03-26 16:17 | XMS_ITS | Encounter Summary ---
Author Organization [facility] Address [address] [place] [address] Care Team Providers Care Tile Power Shear Operator Name Role Phone Name, Edmund HERNANDEZ Primary Care Provider Unavailabl e Encounter Details Date Type Department Care Team Description 02/19/2015 Supervisor Fertilizer Report Medical Records [address] [place] [address] Karsten Kohli MD Social History Tobacco Use [...] on filedocumented in this encounter Care Teams Tile Power Shear Operator Relationship Specialty Start Date End Date Name, MD Edmund PCP - General Internal Medicine 01/28/11 documented as of this encounter
--- OUTSIDE RECORDS SUMMARY | 2024-03-26 16:17 | XMS_ITS | Clinical Summary ---
Author Organization [facility] Address [address] [place] [address] Phone Care Team Providers Care Manager Global Communications Name Role Phone Name, Edmund HERNANDEZ Primary Care Provider [phone] Allergies Active Allergy Reactions Criticality Noted Date Comments Iodinated Contrast Media Nausea And Vomiting,Other,Swemagoin g 03/06/2008 Throat closing Encounters Date Type Department Care Team Description 02/06/2024 7:45 AM EST - 02/06/2024 8:35 AM EST Emergency [facility] Emergency [address] [place] [address] Chest pain, unspecified type (Primary Dx) Discharge Disposition: Home or Self Care from Last 3 Months Medical History Medical History Date Comments Diabetes mellitus (CMS/HCC) Disease of thyroid gland Tachycardia Asthma Arthritis Social History Tobacco Use Types Packs/Day Years Used Date Smoking Tobacco: Never Assessed Sex and Gender Information Value Date Recorded Sex Assigned at Not on file Gender Identity Not on file Sexual Orientation Not on file Job Start Date Occupation Industry Not on file Not on file Not on file Obstetrics History Last Filed Vital Signs Vital Sign Reading Time Taken Comments Blood Pressure 119/83 02/06/2024 8:13 AM EST Pulse 71 02/06/2024 8:13 AM EST Temperature 36.4 ??C (97.5 ??F) 02/06/2024 8:13 AM ES T Respiratory Rate 19 02/06/2024 8:13 AM EST Oxygen Saturation 100% 02/06/2024 8:13 AM EST Inhaled Oxygen Concentration - - Weight 67.1 kg (148 lb) 02/05/2024 12:42 PM EST Height 152.4 cm (5') 02/05/2024 12:42 PM EST Body Mass Index 28.9 02/05/2024 12:42 PM EST Plan of Treatment Health Maintenance Due Date Last Done Comments Diabetes: Annual Foot Exam 1972 Diabetes: Annual Retina Eye Exam 1972 Zoster Vaccines (1 of 2) 1981 Cervical Cancer Screening: Pap Smear 06/26/1983 Breast Cancer Screening 11/11/2018 11/11/2016 Colorectal Cancer Screening: Colonoscopy 02/10/2022 HIV Screening 02/10/2022 Hepatitis C Screening 02/10/2022 Medicare Annual Wellness Visit 02/10/2022 Social Influencers of Health Screening 02/10/2022 RSV Immunization Patients 60+ Years Old (1 - Risk 60-74 years 1-dose series) 2022 Diabetes: Annual Urine Albumin-Creatinine Ratio (uACR) 02/05/2024 Diabetes: Blood Sugar Control Test (HGBA1C) 06/05/2024 12/06/2023 Depression Screening 07/28/2024 07/29/2023 Diabetes: Annual GFR (Glomerular Filtration Rate) 02/04/2025 02/05/2024 Hypertension/CHF/CAD Annual BMP Blood Test 02/04/2025 02/05/2024 Cholesterol Screening (Lipid Panel) 06/06/2028 06/07/2023 DTaP,Tdap,and Td Vaccines (3 - Td or Tdap) 12/05/2033 12/06/2023, 03/15/2011 Pneumococcal Vaccine: Pediatrics (0 to 5 Years) and At-Risk Patients (6 to 64 Years) Completed 07/29/2023, 07/24/2014 COVID-19 Vaccine Completed 11/02/2023, , 04/27/2020, Additional history exists Influenza Vaccine Completed 11/02/2023, , 12/08/2018, Additional history exists HIB Vaccines Aged Out [...] on patient's age to complete this topic MMR Vaccines Aged Out No longer eligi ble based on patient's age to complete this topic Meningococcal ACWY Vaccine Aged Out N o longer eligible based on patient's age to complete this topic RSV Immunization Patients Under 20 months Aged Out No longer eligible based on patient's age to complete this topic Varicella Vaccines Aged Out No longer eligible based on patient's age to complete this topic Procedures Procedure Name Priority Date/Time Associated Diagnosis Comments XR CHEST 2 VIEWS STAT 02/06/2024 4:03 AM EST ECG ANNOTATED 02/06/2024 ECG 12-LEAD STAT 02/05/2024 7:37 PM EST TROPONIN I HIGH SENSITIVITY STAT 02/05/2024 7:33 PM EST CBC WITH AUTO DIFFERENTIAL STAT 02/05/2024 3:05 PM EST MAGNESIUM STAT 02/05/2024 3:05 PM EST LIPASE STAT 02/05/2024 3:05 PM EST COMPREHENSIVE METABOLIC PANEL STAT 02/05/2024 3:05 PM EST CBC AND DIFFERENTIAL STAT 02/05/2024 3:05 PM EST TROPONIN I HIGH SENSITIVITY STAT 02/05/2024 3:05 PM EST ECG 12-LEAD STAT 02/05/2024 12:31 PM EST DX MAMMO INCL CAD BI Routine 11/11/2016 9:09 AM EDT Mammographic microcalcification found on diagnostic imaging of breast from Last 3 Months or Most Recently Relevant to Health Maintenance Results * XR Chest 2 Views (02/06/2024 4:03 AM EST) Anatomical Region Laterality Modality Body Radiographic Suzanne ging 02/06/2024 7:38 AM EST Impressions 02/06/2024 7:39 AM EST Unremarkable chest exam. No change from 11/30/2020. -------- FINAL REPORT -------- Dictated By: Christiano Vela Dictated Date: 02/06/2024 07:38 ET Assigned Physician: Christiano Vela Reviewed and Electronically Signed By: Christiano Vela Signed Date: 02/06/2024 07:39 ET Workstation ID: [id number] Transcribed By: Self Edit Transcribed Date: 02/06/2024 07:38 ET Narrative 02/06/2024 7:39 AM EST EXAMINATION: Chest 2 views. CLINICAL INDICATION: Chest pain, asthma. COMPARISON: Chest 2 views 11/30/2020. FINDINGS: The lungs are well-expanded and clear. The heart size and pulmonary vascularity is normal. No gross bony abnormality seen. The soft tissues are normal. Procedure Note Christiano Vela MD - 02/06/2024 EXAMINATION: Chest 2 views. CLINICAL INDICATION: Chest pain, asthma. COMPARISON: Chest 2 views 11/30/2020. FINDINGS: The lungs are well-expanded and clear. The heart size andpulmonary vascularity is normal. No gross bony abnormality seen. The softtissues are normal. IMPRESSION: Unremarkable chest exam. No change from 11/30/2020. -------- FINAL REPORT -------- Dictated By: Christiano Vela Dictated Date: 02/06/2024 07:38 ET Assigned Physician: Christiano Vela Reviewed and Electronically Signed By: Christiano Vela Signed Date: 02/06/2024 07:39 ET Workstation ID: [id number] Transcribed By: Self Edit Transcribed Date: 02/06/2024 07:38 ET Bowen Juarez MD IMG XR PROCEDURES * ECG-Annotated (02/06/2024) Provider Onbase ECG ORDERABLES * ECG 12 lead (02/05/2024 7:37 PM EST) Only the most recent of2 resultswithin the time period is included. Pathologist [facility] Ventricular Rate ECG 50 BPM GEMUSE Atrial Rate 50 BPM GEMUSE P-R Interval 150 ms GEMUSE QRS Duration 78 ms GEMUSE Q-T Interval 478 ms GEMUSE QTc 435 ms GEMUSE P Wave [place] 52 degrees GEMUSE R [place] 44 degrees GEMUSE T [place] 55 degrees GEMUSE ECG Interpretation Sinus bradycardia Anteroseptal infarct , age undetermined Abnormal ECG When compared with ECG of 05-FEB-2024 12:31, Anteroseptal infarct is now Present Confirmed by MD Mireles Christopher ([id number]) on 02/06/2024 9:54:07 PM GEMUSE 02/05/2024 7:37 PM EST 02/06/2024 9:54 PM EST Bowen Juarez MD ECG ORDERABLES Performing Organization Address [facility]/ZIP Co de Phone Number GEMUSE * Troponin I high sensitivity (02/05/2024 7:33 PM EST) Only the most recent of2 resultswithin the time period is included. [facility] High Sensitivity Troponin I 4 <=54 ng/L LAB CHEMISTRY METHOD 02/05/2024 8:[address] [facility] Blood Venous blood specimen / Unknown Venipuncture / Unknown 02/05/2024 7:33 PM EST 02/05/2024 7:[address] [facility] - 02/05/2024 8:17 PM EST High levels of biotin in samples may falsely decrease hsTroponin values. ??Use caution when interpreting hsTroponin results in patients taking biotin who exhibit renal impairment (eGFR <60) or in patients taking more than 20 mg/day of biotin. Bowen Juarez MD LAB BLOOD ORDERAB LES [facility] [address] [place] [address], * CBC auto differential (02/05/2024 3:05 PM EST) [facility] WBC 7.0 4.8 - 10.8 K/mcL LAB HEMETOLOGY METHOD 02/05/2024 3:38 PM [facility] RBC 4.80 3.80 - 4.80 M/mcL LAB HEMETOLOGY METHOD 02/05/2024 3:38 PM [facility] Hemoglobin 13.8 11.5 - 16.0 g/dL LAB HEMETOLOGY METHOD 02/05/2024 3:38 PM [facility] Hematocrit 42.9 35.0 - 47.0 % LAB HEMETOLOGY METHOD 02/05/2024 3:38 PM [facility] MCV 89.0 79.0 - 98.0 FL LAB HEMETOLOGY METHOD 02/05/2024 3:38 PM [facility] MCH 28.6 27.0 - 32.0 pcg LAB HEMETOLOGY METHOD 02/05/2024 3:38 PM [facility] MCHC 32.2 32.0 - 37.0 g/dL LAB HEMETOLOGY METHOD 02/05/2024 3:38 PM [facility] RDW 14.0 11.0 - 15.0 % LAB HEMETOLOGY METHOD 02/05/2024 3:38 PM [facility] Platelets 335 130 - 400 K/mcL LAB HEMETOLOGY METHOD 02/05/2024 3:38 PM [facility] MPV 9.7 7.0 - 11.0 FL LAB HEMETOLOGY METHOD 02/05/2024 3:38 PM [facility] NRBC 0.0 <1.0 % LAB HEMETOLOGY METHOD 02/05/2024 3:38 PM [facility] NRBC Absolute 0.00 <0.10 K/mcL LAB HEMETOLOGY METHOD 02/05/2024 3:38 PM [facility] Neutrophils Relative 52.1 % LAB HEMETOLOGY METHOD 02/05/2024 3:38 PM [facility] Lymphocytes Relative 35.1 % LAB HEMETOLOGY METHOD 02/05/2024 3:38 PM [facility] Monocytes Relative 9.8 % LAB HEMETOLOGY METHOD 02/05/2024 3:38 PM [facility] Eosinophils Relative 2.0 % LAB HEMETOLOGY METHOD 02/05/2024 3:38 PM [facility] Basophils Relative 0.9 % LAB HEMETOLOGY METHOD 02/05/2024 3:38 PM [facility] Immature Granulocytes Relative 0.1 % LAB HEMETOLOGY METHOD 02/05/2024 3:38 PM [facility] Neutrophils Absolute 3.65 1.50 - 7.00 K/mcL LAB HEMETOLOGY METHOD 02/05/2024 3:38 PM [facility] Lymphocytes Absolute 2.46 1.00 - 5.00 K/mcL LAB HEMETOLOGY METHOD 02/05/2024 3:38 PM [facility] Monocytes Absolute 0.69 0.20 - 1.00 K/mcL LAB HEMETOLOGY METHOD 02/05/2024 3:38 PM [facility] Eosinophils Absolute 0.14 0.00 - 0.50 K/mcL LAB HEMETOLOGY METHOD 02/05/2024 3:38 PM [facility] Basophils Absolute 0.06 0.00 - 0.20 K/mcL LAB HEMETOLOGY METHOD 02/05/2024 3:38 PM [facility] Immature Granulocytes Absolute 0.01 0.00 - 0.03 K/mcL LAB HEMETOLOGY METHOD 02/05/2024 3:38 PM [facility] Blood Venous blood specimen / Unknown Venipuncture / Unknown 02/05/2024 3:05 PM EST 02/05/2024 3:30 PM EST Bowen Juarez MD LAB BLOOD ORDERAB LES Performing Organization Address City/[facility]/ZIP Co de Phone Number [facility] [address] [place] [address], [place] [phone] * Magnesium (02/05/2024 3:05 PM EST) Magnesium 2.1 1.9 - 2.6 mg/dL LAB CHEMISTRY METHOD 02/05/2024 3:[address] [facility] Blood Venous blood specimen / Unknown Venipuncture / Unknown 02/05/2024 3:05 PM EST 02/05/2024 3:30 PM EST Bowen Juarez MD LAB BLOOD ORDERAB LES Performing Organization Address [facility] Co de Phone Number [facility] [address] [place] [address], [place] [phone] * Lipase (02/05/2024 3:05 PM EST) Lipase 20 13 - 75 unit/L LAB CHEMISTRY METHOD 02/05/2024 3:[address] [facility] Blood Venous blood specimen / Unknown Venipuncture / Unknown 02/05/2024 3:05 PM EST 02/05/2024 3:30 PM EST Bowen Juarez MD LAB BLOOD ORDERAB LES Performing Organization Address City/[facility]/ZIP Co de Phone Number [facility] [address] [place] [address], [place] [phone] * (ABNORMAL) Comprehensive metabolic panel (02/05/2024 3:05 PM EST) Sodium 144 133 - 145 mmol/L LAB CHEMISTRY METHOD 02/05/2024 3:[address] [facility] Potassium 4.3 3.5 - 5.5 mmol/L LAB CHEMISTRY METHOD 02/05/2024 3:56 PM [facility] Chloride 110 96 - 110 mmol/L LAB CHEMISTRY METHOD 02/05/2024 3:56 PM [facility] CO2 26 21 - 32 mmol/L LAB CHEMISTRY METHOD 02/05/2024 3:56 PM [facility] Anion Gap 8 3 - 11 LAB CHEMISTRY METHOD 02/05/2024 3:56 PM [facility] Glucose 113(H) 70 - 100 mg/dL LAB CHEMISTRY METHOD 02/05/2024 3:56 PM [facility] BUN 12 5 - 25 mg/dL LAB CHEMISTRY METHOD 02/05/2024 3:56 PM [facility] Creatinine 0.76 0.50 - 1.10 mg/dL LAB CHEMISTRY METHOD 02/05/2024 3:56 PM [facility] eGFR 89 >=60 mL/min/1. 73m2 LAB CHEMISTRY METHOD 02/05/2024 3:56 PM [facility] Comment:Calculation based on the??Chronic Kidney Disease Epidemiology Collaboration (CKD-EPI) equation refit??without adjustment for race. BUN/Creatinine Ratio 15.8 LAB CHEMISTRY METHOD 02/05/2024 3:56 PM [facility] Calcium 10.2 8.5 - 10.5 mg/dL LAB CHEMISTRY METHOD 02/05/2024 3:56 PM [facility] AST (SGOT) 25 10 - 42 unit/L LAB CHEMISTRY METHOD 02/05/2024 3:56 PM [facility] ALT (SGPT) 31 10 - 60 unit/L LAB CHEMISTRY METHOD 02/05/2024 3:56 PM [facility] Alkaline Phosphatase 112 42 - 121 unit/L LAB CHEMISTRY METHOD 02/05/2024 3:56 PM [facility] Total Protein 7.1 6.0 - 8.0 g/dL LAB CHEMISTRY METHOD 02/05/2024 3:[address] [facility] Albumin 3.8 3.2 - 5.0 g/dL LAB CHEMISTRY METHOD 02/05/2024 3:[address] [facility] Total Bilirubin 0.4 0.0 - 1.4 mg/dL LAB CHEMISTRY METHOD 02/05/2024 3:[address] [facility] Blood Venous blood specimen / Unknown Venipuncture / Unknown 02/05/2024 3:05 PM EST 02/05/2024 3:30 PM EST Bowen Juarez MD LAB BLOOD ORDERAB LES [facility] [address] [place] [address], * DX MAMMO INCL CAD BI (11/11/2016 9:09 AM EDT) Anatomical Region Laterality Modality Mammography 11/04/2015 9:33 AM EDT Narrative 11/11/2016 9:25 AM EDT This is a summary report. The complete report is available in the patient's medical record. If you cannot access the medical record, please contact the sending organization for a detailed fax or copy. Bilateral diagnostic digital mammogram History: One year follow-up left breast microcalcifications. Screening right breast. Prior: Bilateral mammogram with left breast magnification views left breast 11/04/2015. Magnification views left breast 05/28/2015 and 11/26/2014. Bilateral mammogram 11/23/2014, 11/17/2013, 11/15/2012. Full field digital screening mammography, reviewed with CAD and compared to previous. Magnification views of the left breast on the cc and MLO projections are also obtained. The breasts are composed of fatty and fibroglandular tissue. ?? No suspicious mass, architectural distortion or suspicious calcifications are identified. Faint microcalcifications clustered in the medial left breast have been stable for 2 years. IMPRESSION: : No mammographic evidence of malignancy. Stable left breast microcalcifications. Bilateral mammogram in one year to resume annual screening is recommended and has been scheduled. BIRADS 2-benign 5 year breast cancer risk assessment 0.6 % Lifetime breast cancer risk assessment 4.3 % Breast cancer risk category Low (<15%) Procedure Note Humaira Mao MD - 04/01/2023 This is a summary report. The complete report is available in thepatient's medical record. If you cannot access the medical record, pleasecontact the sending organization for a detailed fax or copy. Bilateral diagnostic digital mammogram History: One year follow-up left breast microcalcifications. Screeningright breast. Prior: Bilateral mammogram with left breast magnification views leftbreast 11/04/2015. Magnification views left breast 05/28/2015 and 11/26/2014.Bilateral mammogram 11/23/2014, 11/17/2013, 11/15/2012. Full field digital screening mammography, reviewed with CAD and comparedto previous. Magnification views of the left breast on the cc and MLOprojections are also obtained. The breasts are composed of fatty andfibroglandular tissue. No suspicious mass, architectural distortion or suspicious calcificationsare identified. Faint microcalcifications clustered in the medial left breast have beenstable for 2 years. IMPRESSION: : No mammographic evidence of malignancy. Stable left breastmicrocalcifications. Bilateral mammogram in one year to resume annualscreening is recommended and has been scheduled. BIRADS 2-benign 5 year breast cancer risk assessment 0.6 % Lifetime breast cancer risk assessment 4.3 % Breast cancer risk category Low (<15%) Edmund SCHERER BI PROCEDURES from Last 3 Months or Most Recently Relevant to Health Maintenance Care Teams Manager Global Communications Relationship Specialty Start Date End Date Name, MD Edmund [address] [place], [place] PCP - General Internal Medicine 02/07/08
--- OUTSIDE RECORDS SUMMARY | 2024-03-26 16:17 | XMS_ITS | Encounter Summary ---
Author Organization [employer] [facility] Address [address] [place] [address] 7 [place] [address] Care Team Providers Care Entry Level Financial Analyst Name Role Phone Name, Edmund HERNANDEZ Primary Care Provider [phone] Encounter Details Date Type Department Care Team (Late Contact Info) Description 08/19/2022 Abstract [facility] [address] [place] [address] [phone] NameEdmund MD [address] [place] [phone] Social History Tobacco Use Types Packs/Day Years [...] 9:45 AM EST Office Visit [facility] [address] [place] [address] [phone] NameEdmund MD [address] [place] [phone] 05/16/2024 10:00 AM EDT Office Visit [facility] ADULT DENTAL [address] [place] [address] Lillie Witt documented as of this encounter Visit Diagnoses Not on filedocumented in this encounter Care Teams Entry Level Financial Analyst Relationship Specialty Start Date End Date Name, MD Edmund [address] [place] [address] PCP - General Family Medicine 04/04/15 documented as of this encounter
--- OUTSIDE RECORDS SUMMARY | 2024-03-26 16:17 | XMS_ITS | Encounter Summary ---
Author Organization [employer] [facility] Address [address] [place] [address] 7 [place] [address] Care Team Providers Care Service Clerk Name Role Phone Name, Edmund HERNANDEZ Primary Care Provider Encounter Details Date Type Department Care Team (Late st Contact Info) Description 07/30/2022 Abstract [facility] [address] [place] [address] [phone] NameEdmund MD [address] [place] [phone] Social History Tobacco Use Types Packs/Day Years [...] Description 04/19/2024 9:45 AM EST Office Visit [facility] [address] [place] [address] [phone] NameEdmund MD [address] [place] [phone] 05/16/2024 10:00 AM EDT Office Visit [facility] ADULT DENTAL [address] [place] [address] Lillie Witt documented as of this encounter Visit Diagnoses Not on filedocumented in this encounter Care Teams Service Clerk Relationship Specialty Start Date End Date Name, MD Edmund [address] [place] [address] PCP - General Family Medicine 04/04/15 documented as of this encounter
--- OUTSIDE RECORDS SUMMARY | 2024-03-26 16:17 | XMS_ITS | Encounter Summary ---
Author Organization [facility] [facility] Address [address] [facility] 7 [place] [address] Care Team Providers Care Combination Operator Name Role Phone Name, Edmund HERNANDEZ Primary Care Provider Reason for Visit * Reason Comments Med Refill Encounter Details Date Type Department Care Team ([facility] st Contact Info) Description 01/06/2024 Refill [facility] [address] [place], [place] [phone] Beth Blanco NP [address] [place] [address] Social History Tobacco Use Types Packs/Day Years [...] Description 04/19/2024 9:45 AM EST Office Visit [facility] [address] [place] [phone] Name, MD Edmund [address] [place] [phone] 05/16/2024 10:00 AM EDT Office Visit [facility] ADULT [facility] [address] [place] [phone] Lillie Witt documented as of this encounter Visit Diagnoses Not on filedocumented in this encounter Additional Health Concerns Assessment Noted Time PHQ-9 Depression Total Score: 0 07/29/19 24 9:26 AM EDT documented as of this encounter Care Teams Combination Operator Relationship Specialty Start Date End Date Name, MD Edmnud [address] [place] [phone] PCP - General Family Medicine 04/04/15 documented as of this encounter
--- OUTSIDE RECORDS SUMMARY | 2024-03-26 16:17 | XMS_ITS | Encounter Summary ---
Author Organization [employer] Address [address] [facility] 7 [place] [address] Care Team Providers Care Application Security Specialist Name Role Phone Name, Edmund HERNANDEZ Primary Care Provider [phone] Reason for Visit * Reason Comments Back Pain Encounter Details Date Type Department Care Team ([facility] st Contact Info) Description 03/12/2024 1:20 PM EST Office Visit [facility] [address] [place] [address] Norbert Rico MD [address] [place] [address] Chronic bilateral low back pain with left-sided sciatica (Primary Dx) Social History Tobacco Use Types Packs/Day Years [...] AM EDT documented as of this encounter Last Filed Vital Signs Vital Sign Reading Time Taken Comments Blood Pressure 155/73 03/12/2024 12:53 PM EST Pulse 63 03/12/2024 12:53 PM EST Temperature 37.4 ??C (99.3 ??F) 03/12/2024 1 2:53 PM EST Respiratory Rate 17 03/12/2024 12:5 3 PM EST Oxygen Saturation - - Inhaled Oxygen Concentration - - Weight 65.7 kg (144 lb 12.8 oz) 025 12:53 PM EST Height 152.4 cm (5') 03/12/2024 12:53 PM EST Body Mass Index 28.28 03/12/2024 12:53 PM EST documented in this encounter Progress Notes * Norbert Rico MD - 03/12/2024 1:20 PM EST Subjective Patient ID: Pippa Dean is a 63 y.o. female who presents for Back Pain. Back Pain This is a new problem. The current episode started in the past 7 days. The problem occurs constantly. The pain is present in the lumbar spine. The quality of the pain is described as aching (throbbing pain). Radiates to: left posterior thigh and the front of the left thign. The pain is at a severity of 10/10. The pain is severe. The pain is The same all the time. Pertinent negatives include no abdominal pain, bladder incontinence, bowel incontinence, chest pain, dysuria, fever, headaches, leg pain, numbness, paresis, paresthesias, pelvic pain, perianal numbness, tingling, weakness or weight loss. The pain is worse in the last 3 days. No alleviation w/ the use of Tylenol, Ibuprofen and Tramadol.Recent eval by charge entry specialist. Reccommended to follow up w/ ortho for her worsening back pain and left hip pain. No fever/saddle anesthesia/urinary incontinence/urinary retention. Review of Systems Constitutional: Negative for fever and weight loss. Cardiovascular: Negative for chest pain. Gastrointestinal: Negative for abdominal pain and bowel incontinence. Genitourinary: Negative for bladder incontinence, dysuria and pelvic pain. Musculoskeletal: Positive for back pain. Neurological: Negative for tingling, weakness, numbness, headaches and paresthesias. Objective Physical Exam Constitutional: General: She is not in acute distress. Appearance: Normal appearance. She is not ill-appearing, toxic-appearing or diaphoretic. Cardiovascular: Rate and Rhythm: Normal rate. Pulmonary: Effort: Pulmonary effort is normal. Neurological: General: No focal deficit present. Mental Status: She is alert. Psychiatric: Mood and Affect: Mood normal. Assessment/Plan Diagnoses and all orders for this visit: Chronic bilateral low back pain with left-sided sciatica Comments: Gentle streching exercise Moist heat x 10 min x 2 daily Pt denies allergy to aspirin Reports relief after the Toradol injection. Orders: - ketorolac (Toradol) injection 30 mg - celecoxib (CeleBREX) 200 MG capsule; Take 1 capsule (200 mg) by mouth 2 times daily. Pt is to report any side effect Follow up w PCP as scheduled or sooner if sick. documented in this encounter Plan of Treatment Upcoming Encounters Date Type Department Care Team (Late st Contact Info) Description 04/19/2024 9:45 AM EST Office Visit [facility] [address] [place] [address] Name, MD Edmund [address] [place] [address] 05/16/2024 10:00 AM EDT Office Visit [facility] [address] [place] [address] Miryam Lillie documented as of this encounter Visit Diagnoses Diagnosis Chronic bilateral low back pain with left-sided sciatica- Primary documented in this encounter Administered Medications Inactive Administered Medications - up to 3 most recent administrations Medication Order MAR Action Action Date Dose Rate Site ketorolac (Toradol) injection 30 mg 30 mg, Intramuscular, Once, On 03/12/24 at 1345, For 1 doseIndications:Chronic bilateral low back pain with left-sided sciatica Given 03/12/2024 1:45 PM EST 30 mg Left Deltoid documented in this encounter Additional Health Concerns Assessment Noted Time PHQ-9 Depression Total Score: 0 07/29/19 24 9:26 AM EDT documented as of this encounter Care Teams Application Security Specialist Relationship Specialty Start Date End Date Name, MD Edmund [address] [place] [address] PCP - General Family Medicine 04/04/15 documented as of this encounter
--- OUTSIDE RECORDS SUMMARY | 2024-03-26 16:17 | XMS_ITS | Encounter Summary ---
Author Organization [email or web address] Address [address] [facility] 7t [place] [address] Care Team Providers Care Dough Molder Name Role Phone Name, Edmund HERNANDEZ Primary Care Provider [phone] Reason for Visit * Reason Onset Date Comments mail appt slip 03/15/2024 Encounter Details Date Type Department Care Team ([facility] st Contact Info) Description 03/15/2024 Telephone [facility] [address] [place] [address] Lillie Witt mail appt slip Social History Tobacco Use Types Packs/Day Years [...] encounter Miscellaneous Notes * Telephone Encounter - Tonia Velazquez - 03/15/2024 12:41 PM EST Patient cancelled and changed appt from 03/22 to 05/16. She would like an appt slip mailed to address on file DR documented in this encounter Plan of Treatment Upcoming Encounters Date Type Department Care Team (Late st Contact Info) Description 04/19/2024 9:45 AM EST Office Visit [facility] [address] [place] [phone] Name, MD Edmund [address] [place] [address] 05/16/2024 10:00 AM EDT Office Visit [facility] [address] [place] [address] Lillie Witt documented as of this encounter Visit Diagnoses Not on filedocumented in this encounter Additional Health Concerns Assessment Noted Time PHQ-9 Depression Total Score: 0 07/29/19 24 9:26 AM EDT documented as of this encounter Care Teams Dough Molder Relationship Specialty Start Date End Date Name, MD Edmund [address] [place] [phone] PCP - General Family Medicine 04/04/15 documented as of this encounter
--- OUTSIDE RECORDS SUMMARY | 2024-03-26 16:17 | XMS_ITS | Encounter Summary ---
Author Organization [employer] Address [address] [facility] 7t [place] [address] Care Team Providers Care Sales Manager Prearranged Funerals Name Role Phone Name, Edmund HERNANDEZ Primary Care Provider [phone] Reason for Visit * Reason Comments Med Refill Encounter Details Date Type Department Care Team ([facility] st Contact Info) Description 01/19/2023 Refill [facility] & PEDS [address] [place], [place] [phone] Name, MD Edmund [address] [place] [address] Social History Tobacco Use Types Packs/Day Years Used Date Smoking Tobacco: Never Smokeless Tobacco: Never Alcohol Use Standard Drinks/Week Comments Never 0 (1 standard drink = 0.6 oz pur e alcohol) Housing Stability Answer Date Recorded What is your housing situation today? I have aron toney 12/18/[address] you li ve. Do you have problems with any of the following? None of the above 12/18/2022 Food Insecurity Answer Date Recorded Within the past 12 months, y ou worried that your food would run out before you got money to buy more: Never True 12/18/2022 Within the past 12 months,th e food you bought just didn't last and you didn't have enough money to get more: Never True Transportation Answer Date Recorded In the past 12 months, has l ack of transportation kept you from medical appts, meetings, work or from getting things needed for daily living? No 12/18/2022 Utilities Answer Date Recorded In the past 12 months, has t he electric, gas, oil or water company threatened to shut off services in your home? No 12/18/2022 Depression Answer Date Recorded Patient Health Questionnaire-2 [...] Description 04/19/2024 9:45 AM EST Office Visit [facility] [address] [place] [address] Name, MD Edmund [address] [place] [address] 05/16/2024 10:00 AM EDT Office Visit [facility] [address] [place] [address] Lillie Witt documented as of this encounter Visit Diagnoses Not on filedocumented in this encounter Care Teams Sales Manager Prearranged Funerals Relationship Specialty Start Date End Date Name, MD Edmund [address] [place] [address] PCP - General Family Medicine 04/04/15 documented as of this encounter
--- OUTSIDE RECORDS SUMMARY | 2024-03-26 16:17 | XMS_ITS | Encounter Summary ---
Author Organization [employer] Address [address] [facility] 7t [place] [address] Care Team Providers Care Car Porter Name Role Phone Name, Edmund HERNANDEZ Primary Care Provider [phone] Reason for Visit * Reason Comments Med Refill Encounter Details Date Type Department Care Team ([facility] st Contact Info) Description 12/30/2022 Refill [facility] MED & PEDS [address] [place], [place] [phone] Name, MD Edmund [address] [place] [address] Social History Tobacco Use Types Packs/Day Years [...] Description 04/19/2024 9:45 AM EST Office Visit [facility] [address] [place] [address] Name, MD Edmund [address] [place] [address] 05/16/2024 10:00 AM EDT Office Visit [facility] [address] [place] [address] Lillie Witt documented as of this encounter Visit Diagnoses Not on filedocumented in this encounter Care Teams Car Porter Relationship Specialty Start Date End Date Name, MD Edmund [address] [place] [address] PCP - General Family Medicine 04/04/15 documented as of this encounter
--- OUTSIDE RECORDS SUMMARY | 2024-03-26 16:18 | XMS_ITS | Encounter Summary ---
Author Organization [employer] [facility] Address [address] [place] [address] 7 [place] [address] Care Team Providers Care Appeals Representative Name Role Phone Name, Edmund HERNANDEZ Primary Care Provider [phone] Encounter Details Date Type Department Care Team ([facility] Contact Info) Description 09/02/2022 Abstract [facility] [address] [place] [address] [phone] Name, MD Edmund [address] [place] [phone] Social History Tobacco Use Types Packs/Day Years [...] suspected to have Coronavirus/COVID-19? No / Unsure 08/24/2022 9:14 AM EDT documented as of this encounter Plan of Treatment Upcoming Encounters Date Type Department Care Team ([facility] Contact Info) Description 04/19/2024 9:45 AM EST Office Visit [facility] [address] [place] [address] [phone] Name, MD Edmund [address] [place] [address] 05/16/2024 10:00 AM EDT Office Visit [facility] [address] [place] [address] Lillie Witt documented as of this encounter Visit Diagnoses Not on filedocumented in this encounter Care Teams Appeals Representative Relationship Specialty Start Date End Date Name, MD Edmund [address] [place] [address] PCP - General Family Medicine 04/04/15 documented as of this encounter
--- OUTSIDE RECORDS SUMMARY | 2024-03-26 16:18 | XMS_ITS | Encounter Summary ---
Author Organization [employer] [facility] Address [address] [place] [address] 7 [place] [address] Care Team Providers Care Special Tax Auditor Name Role Phone Name, Edmund HERNANDEZ Primary Care Provider [phone] Encounter Details Date Type Department Care Team ([facility] Contact Info) Description 09/07/2022 Abstract [facility] MEDICINE [address] [place] [address] [phone] Name, MD Edmund [address] [place] [phone] Social History Tobacco Use Types Packs/Day Years [...] Upcoming Encounters Date Type Department Care Team ([facility] Contact Info) Description 04/19/2024 9:45 AM EST Office Visit [facility] MED[facility] [address] [place] [address] [phone] Name, MD Edmund [facility] [place] [address] 05/16/2024 10:00 AM EDT Office Visit [facility] AD[facility] [address] [facility] [place] [address] Lillie Witt documented as of this encounter Procedures Procedure Name Priority Date/Time Associated Diagnosis Comments HM COLONOSCOPY Routine 05/06/2021 documented in this encounter Results * Hm Colonoscopy (05/06/2021) Colonoscopy Normal Normal Narrative Rita Jimenez - 05/06/2021 Recommended 5 year follow up Historical Provider HEALTH MAINTENANCE Final Result documented in this encounter Visit Diagnoses Not on filedocumented in this encounter Care Teams Special Tax Auditor Relationship Specialty Start Date End Date Name, MD Edmund [facility] [place] [address] PCP - General Family Medicine 04/04/15 documented as of this encounter
== END 2024-03-26 12:04 | disposition home or self-care (01) ==
PROVIDERS: PCP Internal Medicine Geriatric Medicine; Referring Provider Nurse Practitioner Primary Care; Visit Provider Physician Assistant
DX: M54.9 Dorsalgia, unspecified (principal)
CPT/HCPCS: 99204

== ENCOUNTER → 2024-03-26 11:23 | Outpatient (BNVA) | payer OTHER, SELFPAY | PROVIDERS: PCP Internal Medicine Geriatric Medicine; Referring Provider Nurse Practitioner Primary Care; Visit Provider Physician Assistant | DX: M54.50 Low back pain, unspecified (principal) | CPT/HCPCS: 99202 ==

== ENCOUNTER 2024-04-19 10:20 | Outpatient (REF) | payer OTHER, SELFPAY ==
--- OUTSIDE RECORDS SUMMARY | 2024-04-19 11:28 | XMS_ITS | Encounter Summary ---
Author Organization [facility] Address [address] [place] [address] Care Team Providers Care Travel Agency Manager Name Role Phone Name, Edmund HERNANDEZ Primary Care Provider Unavailabl e Encounter Details Date Type Department Care Team Description 11/15/2012 Business Doc Medical Records [address] [place] [phone] Abstract, Provider Social History Tobacco Use Types [...] on filedocumented in this encounter Care Teams Travel Agency Manager Relationship Specialty Start Date End Date Name, MD Edumnd PCP - General Internal Medicine 01/28/11 documented as of this encounter
--- OUTSIDE RECORDS SUMMARY | 2024-04-19 11:28 | XMS_ITS | Encounter Summary ---
Author Organization [facility] Address [address] [place] [address] Care Team Providers Care Wood Carving Machine Operator Name Role Phone Edmund Valentino MD Primary Care Provider Unavailabl e Encounter Details Date Type Department Care Team Description 10/23/2014 Refill Adult Medicine [address] [address] Name, MD Edmund Social History Tobacco Use [...] on filedocumented in this encounter Care Teams Wood Carving Machine Operator Relationship Specialty Start Date End Date Edmund Valentino MD PCP - General Internal Medicine 01/28/11 documented as of this encounter
--- OUTSIDE RECORDS SUMMARY | 2024-04-19 11:29 | XMS_ITS | Encounter Summary ---
Author Organization [employer] [facility] Address [address] [place] [address] Care Team Providers Care Vehicle Body Builder Name Role Phone Name, Edmund HERNANDEZ Primary Care Provider Unavailabl e Encounter Details Date Type Department Care Team Description 11/06/2014 Controlled Substance Contract with Plan Medical Records [address] [place] [address] Abstract, Provider Social History Tobacco Use Types [...] on filedocumented in this encounter Care Teams Vehicle Body Builder Relationship Specialty Start Date End Date Name, MD Edmund PCP - General Internal Medicine 01/28/11 documented as of this encounter
--- OUTSIDE RECORDS SUMMARY | 2024-04-19 11:29 | XMS_ITS | Encounter Summary ---
Author Organization [email or web address] Address [address] [facility] 7t [place] [address] Care Team Providers Care Crotch Breaker Name Role Phone Name, Edmund HERNANDEZ Primary Care Provider [phone] Reason for Visit * Reason Comments Med Refill Encounter Details Date Type Department Care Team ([facility] st Contact Info) Description 02/10/2024 Refill [facility] CH[facility] MED & PEDS [address] [place], [place] [phone] Name, MD Edmund [address] [place] [address] Social History Tobacco Use Types Packs/Day Years [...] Care Team (Late st Contact Info) Description 07/17/2024 10:00 AM EDT Office Visit [facility] MEDICINE [address] [place] [address] Name, MD Edmund [address] [place] [address] documented as of this encounter Visit Diagnoses Not on filedocumented in this encounter Additional Health Concerns Assessment Noted Time PHQ-9 Depression Total Score: 0 07/29/19 24 9:26 AM EDT documented as of this encounter Care Teams Crotch Breaker Relationship Specialty Start Date End Date Name, MD Edmund [address] [place] [address] PCP - General Family Medicine 04/04/15 documented as of this encounter
--- OUTSIDE RECORDS SUMMARY | 2024-04-19 11:29 | XMS_ITS | Encounter Summary ---
Author Organization [employer] [facility] Address [address] [place] [address] Care Team Providers Care Recruitment Manager Name Role Phone Name, Edmund HERNANDEZ Primary Care Provider Unavailabl e Encounter Details Date Type Department Care Team Description 07/12/2011 Bolt Cutter Report Medical Records [address] [place] [address] Rehab., [facility] Social History Tobacco Use Types Packs/Day Years [...] on filedocumented in this encounter Care Teams Recruitment Manager Relationship Specialty Start Date End Date Name, MD Edmund PCP - General Internal Medicine 01/28/11 documented as of this encounter
--- OUTSIDE RECORDS SUMMARY | 2024-04-19 11:29 | XMS_ITS | Encounter Summary ---
Author Organization [employer] [facility] Address [address] [place] [address] Care Team Providers Care Retail Sales Consultant Name Role Phone Name, Edmund HERNANDEZ Primary Care Provider Unavailabl e Encounter Details Date Type Department Care Team Description 06/28/2011 Sex Worker Or Escort Report Medical Records [address] [place] [address] Rehab., [facility] Social History Tobacco Use Types Packs/Day Years [...] on filedocumented in this encounter Care Teams Retail Sales Consultant Relationship Specialty Start Date End Date Name, MD Edmund PCP - General Internal Medicine 01/28/11 documented as of this encounter
--- OUTSIDE RECORDS SUMMARY | 2024-04-19 11:29 | XMS_ITS | Clinical Summary ---
Author Organization [employer] Address [address] [facility] 7 [place] [address] Care Team Providers Care Assisted Living Care Manager Name Role Phone Name, Edmund HERNANDEZ Primary Care Provider [phone] Allergies Active Allergy Reactions Criticality Noted Date Comments Alprazolam Nausea And Vomiting,Other,Swell ing 03/06/2008 Patient describes that she had a withdrawal from this medication causing extreme anxiety and dificulty breathin. She denies an actual allergy to this medicine Aspirin Nausea And Vomiting,Swelling High 03/06/2008 Other reaction(s): OTHER LegacyRecord#[id number] Throat closing Green Dye High 11/15/2018 IV DYE Iodinated Contrast Media Nausea And Vomiting,Swelling 03/06/2008 Other reaction(s): arm swelling Other reaction(s): OTHER Throat closing Iodine High 04/04/2015 LegacyRecord#[id number] Tuberculin Ppd High 11/15/2018 Tuberculin Purified Protein Derivative 08/20/2022 Other reaction(s): ?reaction Tuberculin, Ppd 01/09/2013 LegacyRecord#[id number] Medications fluticasone (Flonase) 50 MCG/ACT nasal sprayIndications :Allergic rhinitis, unspecified seasonality, unspecified trigger Administer 2 sprays into each nostril in the morning. 48 g 022 Active amLODIPine (Norvasc) 5 MG tablet 023 Active montelukast (Singulair) 10 MG tablet Take 1 tablet by mouth at bed time. 020 Active pantoprazole (ProtoNix) 40 MG EC tablet 022 Active loratadine (Claritin) 10 MG tabletIndication s:Mild intermittent asthma, unspecified whether complicated TAKE 1 TABLET BY ORAL ROUTE EVERY DAY 90 tablet 1 023 Active albuterol (2.5 MG/3ML) 0.083% nebulizer solution Take 3 mL (2.5 mg) by nebulization every 6 (six) hours if needed for wheezing or shortness of breath. 75 mL 1 023 Active Spacer/Aero-Hold ing Chambers (OptiChamber Ophelia) misc 1 each every 4 (four) hours if needed (asthma). 1 each 023 Active metoprolol tartrate (Lopressor) 50 MG tabletIndication s:Hypertension, unspecified type Take 1 tablet (50 mg) by mouth 2 times daily. 180 tablet 1 023 Active glucose blood (FREESTYLE LITE) test strip TEST BLOOD SUGAR ONCE DAILY 100 each 11 023 Active Blood Glucose Monitoring Suppl (Haiku Deck) w/Device kit USE TO TEST BLOOD SUGAR EVERY DAY 1 kit 023 Active OneTouch Delica Lancets 33G misc USE TO TEST BLOOD SUGAR EVERY DAY 100 each 11 023 Active budesonide-formo terol (Symbicort) 160-4.5 MCG/ACT inhaler Inhale. 023 Active Diclofenac Sodium 1 % gel APPLY 1 TO 3 GRAMS TO AFFECTED AREA THREE TIMES A DAY TO FOUR TIMES A DAY 100 g 1 024 Active calcium citrate 333 MG tablet Take 1 tablet (333 mg) by mouth if needed each day (as needed). 90 tablet 2 024 2024 Active FreeStyle lancets USAR TO TEST BLOOD SUGAR CLYDE VEZ AL TREVOR 100 each 11 024 Active DULoxetine (Cymbalta) [address] capsule Take 1 capsule (30 mg) by mouth Once per day. 30 capsule 2 024 Active glucose blood (OneTouch Verio) test stripIndications :Type 2 diabetes mellitus without complication, without long-term current use of insulin ([facility]) USE TO TEST BLOOD SUGAR ONCE A DAY 100 strip 11 024 Active hydrocortisone 2.5 % ointmentIndicati ons:Fissure in skin Apply topically 2 times daily. 20 g Active levothyroxine (Synthroid, Levoxyl) 88 MCG tablet TAKE ONE TABLET BY MOUTH EVERY MORNING BEFORE BREAKFAST 90 tablet 1 Active Dulaglutide (Trulicity) 0.75 MG/0.5ML solution auto-injectorInd ications:Type 2 diabetes mellitus without complication, without long-term current use of insulin (CMS/HCC) Inject 0.5 mL (0.75 mg) under the skin 1 (one) time per week. INJECT 0.5 ML SUBCUTANEOUSLY EVERY WEEK. 2 mL 5 Active OneTouch Delica Lancets 33G misc USE TO TEST BLOOD SUGAR EVERY DAY 100 each Active Ventolin HFA 108 (90 Base) MCG/ACT inhalerIndicatio ns:Mild intermittent asthma, unspecified whether complicated USAR 2 INHALACIONS POR LA BOCA CADA 4 O 6 HORAS REBECA SEA NECESARIO 18 g 2 025 Active penicillin v potassium (Veetid) 500 MG tabletIndication s:Strep pharyngitis Take 1 tablet (500 mg) by mouth 2 times daily for 10 days. 20 tablet 025 2024 Active acetaminophen (Tylenol Extra Strength) 500 MG tablet Take 1 tablet (500 mg) by mouth every 6 (six) hours if needed for mild pain for up to 10 days. 30 tablet 025 2024 Active metFORMIN (Glucophage) 500 MG tabletIndication s:Type 2 diabetes mellitus without complication, without long-term current use of insulin (CMS/HCC) TAKE 1 TABLET BY ORAL ROUTE 2 TIMES EVERY DAY WITH MORNING AND EVENING MEALS 60 tablet 5 025 Active atorvastatin (Lipitor) 20 MG tabletIndication s:Type 2 diabetes mellitus without complication, without long-term current use of insulin (CMS/HCC) Take 1 tablet (20 mg) by mouth Once per day. 90 tablet 2 025 2024 Active metFORMIN (Glucophage) 500 MG tabletIndication s:Mild intermittent asthma, unspecified whether complicated TAKE 1 TABLET BY ORAL ROUTE 2 TIMES EVERY DAY WITH MORNING AND EVENING MEALS 60 tablet 5 023 2024 Discontinued(R eorder (will not trigger notification to Pharmacy)) atorvastatin (Lipitor) 20 MG tabletIndication s:Mixed hyperlipidemia Take 1 tablet (20 mg) by mouth Once per day. 90 tablet 2 024 2024 Discontinued(R eorder (will not trigger notification to Pharmacy)) Ventolin HFA 108 (90 Base) MCG/ACT inhalerIndicatio ns:Mild intermittent asthma, unspecified whether complicated INHALE 2 PUFFS BY MOUTH EVERY 4 TO 6 HOURS IF NEEDED 18 g 2 024 2024 Discontinued celecoxib (CeleBREX) 200 MG capsuleIndicatio ns:Chronic bilateral low back pain with left-sided sciatica Take 1 capsule (200 mg) by mouth 2 times daily. 20 capsule 025 2024 Active Problems Problem Noted Date Diagnosed Date Varicose veins of left lower extremity with infl ammation 04/19/2024 Phlebolith 04/19/2024 Pain of both sacroiliac joints 04/19/2024 Osteoarthritis, hip, bilateral 04/19/2024 Osteoarthritis of right knee 04/19/2024 Frequency of urination 04/19/2024 Breast mass, left 04/19/2024 Muscle spasm 08/31/2023 Hypothyroidism 08/31/2023 Assessment & [...] aware that if helpful will meet with hammer setter Health maintenance examination 06/05/2023 Bradycardia 08/20/2022 Bradycardia [...] Constipation 12/08/2018 Overview (08/20/2022): Overview Note: Constipation #[id number]# EXT_ID: [id number] Breast cancer 11/15/2018 Overview (08/20/2022): Right DCIS in 2016, on tamoxifen, 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 Assessment & Plan (2023 3:54 PM EDT): In close care with oncology, utd on mammogram Hypertrophic condition of skin 10/26/2018 Overview (08/20/2022): Overview Note: Hypertrophic disorders of skin #[id number]# EXT_ID: [id number] 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 Overview (08/20/2022): Overview Note: Monoarthritis, not elsewhere classified, knee #[id number]# EXT_ID: [id number] Assessment & Plan (2023 4:01 PM EDT): Trial tramadol, Medication Indications, side effects and duration of therapy reviewed, pt aware to call clinic for worsening symptoms or failure to resolve Dry eye syndrome 10/04/2018 Overview (08/20/2022): Overview Note: Dry eye syndrome #[id number]# EXT_ID: [id number] Pain in knee 10/04/2018 Overview (08/20/2022): Overview Note: Pain in knee #[id number]# EXT_ID: [id number] Intraductal carcinoma in situ of breast 08/04/19 19 Overview (08/20/2022): Overview Note: Intraductal carcinoma in situ of breast #[id number]# EXT_ID: [id number] Benign mammary dysplasia 08/01/2018 Overview (08/20/2022): Overview Note: Other benign mammary dysplasias #[id number]# EXT_ID: [id number] Mild persistent asthma 07/27/2018 Overview (08/20/2022): Overview Note: Mild intermittent asthma #3029632# EXT_ID: [id number] Assessment & Plan (06/13/2023 2:10 PM EDT): Stable mild intermittent, seasonal allergies are triggers, Anxiety disorder 07/27/2018 Overview (08/20/2022): The patient follows with Dr Taylor Overview Note: Other anxiety disorders #[id number]# EXT_ID: [id number] Assessment & Plan (2023 3:55 PM EDT): Reports stable and well managed, continue current regimen Hypertension 07/27/2018 Overview (06/13/2023): At goal today, continue amlodipine and metoprolol, consider josefa or arb given concurrent dm, defer to pcp Joint pain 11/08/2017 Diabetes mellitus, type 2 05/21/2016 Overview (08/20/2022): Overview Note: Type 2 diabetes mellitus #[id number]# EXT_ID: [id number] Allergic rhinitis 05/21/2016 Assessment & Plan (2023 [...] Overview (08/20/2022): Overview Note: Carpal tunnel syndrome #[id number]# EXT_ID: [id number] Atypical lobular hyperplasia (ALH) of breast Overview (08/20/2022): Patient [facility] and [facility] and with Dr Avina. She was on Tamoxigen for 5 years Umbilical hernia 07/16/2011 Impaired fasting glucose 01/28/2011 Breast microcalcification, mammographic 01/09/20 11 Overview (08/20/2022): Biopsied in [place] 07-07-2009, fibrocystic disease. Acquired hypothyroidism 01/05/2011 Overview (08/20/2022): Overview Note: Other hypothyroidism #[id number]# EXT_ID: [id number] Assessment & Plan (06/28/2023 11:56 AM EDT): [...] 12/08/2018 12/06/2023 Overview (08/20/2022): Overview Note: Cough #[id number]# EXT_ID: [id number] Major depressive disorder, recurrent 10/26/2018 06/29/2023 Overview (04/06/2022): Overview Note: Major depressive disorder, recurrent #[id number]# EXT_ID: [id number] Lung mass 01/08/2011 2023 Overview (08/20/2022): F/u recommended somewhere between 01/09 and 07/10 Abdominal pain 03/06/2008 12/06/2023 Overview (08/20/2022): Overview Note: Dorsalgia #[id number]# EXT_ID: [id number] Cervical spine disc herniation Overview Note: Other abdominal pain #8507460# EXT_ID: [id number] Asthma 03/06/2008 12/06/2023 Assessment & Plan (07/30/2023 4:20 PM EDT): Recent exacerbation, no audible wheeze today, continue inhalers Assessment & Plan (2023 4:09 PM EDT): Continue current inhalers, seasonal allergies are trigger, monitor for increased albuterol usage Encounters Date Type Department Care Team Description 04/19/2024 10:45 AM EST Office Visit [facility] [address] [place] [phone] Arrived 04/19/2024 9:45 AM EST Office Visit [facility] [address] [place] [phone] Name, MD Edmund Type 2 diabetes mellitus without complication, without long-term current use of insulin ([facility]) (Primary Dx); Acquired hypothyroidism; Strep throat 04/09/2024 2:00 PM EST Office Visit [facility] [address] [place] [phone] Shona Blandon NP Flu-like symptoms (Primary Dx); Strep pharyngitis; Hoarse voice quality 04/02/2024 Refill [facility] [address] [place] [phone] Edmund Valentino MD Mild intermittent asthma, unspecified whether complicated 03/15/2024 Telephone [facility] [address] [place] [phone] Miryam Lillie mail appt slip 03/13/2024 Telephone [facility] [address] [place] [phone] Isabel Salas ANP 03/12/2024 1:20 PM EST Office Visit [facility] [address] [place] [phone] Norbert Rico MD Chronic bilateral low back pain with left-sided sciatica (Primary Dx) 03/07/[address] [phone] Daisy Noriega, RN Results 02/10/2024 Orders Only GENERIC EXTERNAL DATA DEPARTMENT Provider, Generic External Data 02/10/2024 Refill [facility] [address] [place] [address] Edmund Valentino MD 02/10/2024 Refill [facility] [address] [place] [phone] Edmund Valentino MD Type 2 diabetes mellitus without complication, without long-term current use of insulin ([facility]) 02/09/2024 Telephone [facility] [address] [place] [phone] Edmund Valentino MD Lab Orders 02/03/[address] [address] Edmund Valentino MD Durable Medical Equipment 01/27/2024 Refill [facility] [address] [place] [phone] Beth Blanco NP 01/20/2024 1:20 PM EST Office Visit [facility] [address] [place] [phone] Paterson, Nicolasa, RN NEONATAL Sore throat (Primary Dx); Reactive lymphadenopathy 01/20/2024 11:00 AM EST Office Visit [facility] [address] [place] [phone] Aline Beatriz, DDS 01/20/2024 Refill [facility] [address] [place], [place] [phone] Name, MD Edmund 01/20/2024 Refill [facility] [address] [place], [place] [phone] Name, MD Edmund 01/18/2024 Refill [facility] [address] [place], [place] [phone] Name, MD Edmund Mild intermittent asthma, unspecified whether complicated from Last 3 Months Immunizations Name Administration Dates Next Due Influenza Injectable Quadriv alant Preservative Free IIV4 MDCK 12/01/2019 Influenza injectable quadriv alent IIV4 with preservative 12/18/2015,11/30/2013,11/06/2000 Influenza injectable quadriv alent preservative free 11/10/2021,11/13/2020,12/08/2018,12/10 Influenza, IIV3, injectable 12/28/2013,0 11/06/2012,12/08/2011,01/05 Influenza, Injectable, MDCK, preservative free 11/02/2023 Influenza, seasonal, injecta ble, preservative free 12/08/2016,11/02/2016 Pfizer Covid-19 Vaccine 12+ 12/11/2020,,04/06/2020 Pneumococcal Conjugate PCV 20 07/29/2023 Pneumococcal Polysaccharide PPSV23 11/13/2020, Tdap 12/06/2023,03/15/2011 Zoster, Recombinant 01/30/2020,12/01/2019 Social History Tobacco Use Types Packs/Day Years [...] Sign Reading Time Taken Comments Blood Pressure 133/82 04/19/2024 9:54 AM EST Pulse 70 04/19/2024 9:54 AM EST Temperature 36.2 ??C (97.2 ??F) 04/19/2024 9:54 AM ES T Respiratory Rate 14 04/19/2024 9:54 AM EST Oxygen Saturation 99% 04/19/2024 9:54 AM EST Inhaled Oxygen Concentration - - Weight 67 kg (147 lb 9.6 oz) 04/19/2024 9:54 AM EST Height 152.4 cm (5') 04/19/2024 9:54 AM EST Body Mass Index 28.83 04/19/2024 9:54 AM EST Plan of Treatment Upcoming Encounters Date Type Department Care Team (Late st Contact Info) Description 07/17/2024 10:00 AM EDT Office Visit [facility] [address] [facility] [place] [address] Name, MD Edmund [address] [facility] [place] [address] Health Maintenance Due Date Last Done Comments [...] history exists Depression Screening 07/28/2024 07/29/2023, 07/29/19 Alcohol/Substance Use Screening 08/30/2024 08/31/2023 Diabetes: Foot Exam 12/05/2024 12/06/2023, 12/06/2023, 12/06/2023, Additional history exists Diabetes: Urine Protein Screening 12/05/2024 12/06/2023, 05/19/2022, 04/21/2020, Additional history exists Eye Exam 03/29/2025 03/29/2023 Tobacco Screening 04/19/2025 04/19/2024 Colonoscopy 05/06/2026 05/06/2021 Colorectal Cancer Screening 05/06/2026 DTaP/Tdap/Td Vaccines (3 - Td or Tdap) 12/05/2033 12/06/2023, 03/15/2011 Zoster Vaccines Completed 01/30/2020, 12/01/2019 Pneumococcal Vaccine: 50+ Years Completed 07/29/2023, 11/13/2020, 07/24/2014 COVID-19 Vaccine Completed [...] Procedure Name Priority Date/Time Associated Diagnosis Comments POCT GLUCOSE Routine 04/19/2024 9:55 AM EST Type 2 diabetes mellitus without complication, without long-term current use of insulin ([facility]) POCT INFLUENZA B (ID NOW RAPID MOLECULAR) Routine 04/09/2024 2:23 PM EST Flu-like symptoms POCT INFLUENZA A (ID NOW RAPID MOLECULAR) Routine 04/09/2024 2:22 PM EST Flu-like symptoms POCT RAPID COVID ANTIGEN Routine 04/09/2024 2:17 PM EST Flu-like symptoms POCT RAPID STREP A Routine 04/09/2024 2: 17 PM EST Flu-like symptoms CT CHEST W CONTRAST Routine 02/10/2024 7 [...] CHARGE VISIT Routine 01/20/2024 11:00 AM EST ALBUMIN, RANDOM URINE W/CREATININE Routine 12/06/2023 10:00 AM EDT Type 2 diabetes mellitus without complication, without long-term current use of insulin (CMS/HCC) POCT GLYCATED HEMOGLOBIN, TOTAL Routine 12/06/2023 9:03 AM EDT Type 2 diabetes mellitus without complication, without long-term current use of insulin (CMS/HCC) BI MAMMOGRAM SCREENING TOMOSYNTHESIS BILATERAL Routine 07/05/2023 1:55 PM EDT LIPID PANEL, STANDARD Routine 06/07/2023 11:34 AM EDT Type 2 diabetes mellitus without complication, without long-term current use of insulin (CMS/HCC) DIABETES EYE EXAM Routine 03/29/2023 COLONOSCOPY Routine 05/06/2021 PROPHYLAXIS - ADULT Routine 08/26/2020 1 2:00 AM EDT INTRAORAL - COMPLETE SERIES OF RADIOGRAPHIC IMAGES Routine 08/26/2020 12:00 AM EDT PERIODIC ORAL EVALUATION - ESTABLISHED PATIENT Routine 08/26/2020 12:00 AM EDT from Last 3 Months or Most Recently Relevant to Health Maintenance Results * POCT Glucose (04/19/2024 9:55 AM EST) [facility] Glucose Blood, POC 129 60 - 200 mg/dL QC Media Lot # [id number] Lot# Expiration Date 53 Blood Capillary blood specimen / Unknown 04/19/2024 9:55 AM EST Edmund Valentino MD POINT OF CARE TEST ENTER/EDIT OR DERABLES Final Result * Influenza B (ID NOW Rapid Molecular) (04/09/2024 2:23 PM EST) Only the most recent of2 resultswithin the time period is included. [facility] Influenza B Negative Negative, Indeterminate [facility] Swab 04/09/2024 2:23 PM EST Shona Blandon [employer]URING VICE PRESIDENT POINT OF CARE TEST ENTER/EDIT O RDERABLES Final Result Performing Organization Address City/[facility]/ZIP Co de Phone Number [facility] [address] [place] [phone] * Influenza A (ID NOW Rapid Molecular) (04/09/2024 2:22 PM EST) Only the most recent of2 resultswithin the time period is included. [facility] Influenza A Negative Negative, Indeterminate [facility] Swab 04/09/2024 2:22 PM EST [facility] [employer]ED MANUFACTURING VICE PRESIDENT POINT OF CARE TEST ENTER/EDIT O RDERABLES Final Result Performing Organization Address City/[facility]/ZIP Co de Phone Number [facility] [address] [place] [phone] * POCT Rapid COVID Ag (04/09/2024 2:17 PM EST) Only the most recent of2 resultswithin the time period is included. [facility] Rapid COVID Ag Negative Swab 04/09/2024 2:17 PM EST us Nagel Jamisonjessi [employer]ICE PRESIDENT POINT OF CARE TEST ENTER/EDIT O RDERABLES Final Result * (ABNORMAL) POCT rapid strep A manually resulted (04/09/2024 2:17 PM EST) [facility] Rapid Strep A Screen Positive( A) Negative, None Detected Swab 04/09/2024 2:17 PM EST us Shona Blandon [employer]ING [employer]ICE PRESIDENT POINT OF CARE TEST ENTER/EDIT O RDERABLES Final Result * CT Chest w/ Contrast (02/10/2024 7:56 AM EST) Anatomical Region Laterality Modality Body, Chest Computed Tomogra phy 02/10/2024 7:56 AM EST Narrative 02/21/2024 9:00 AM EST ? [facility] ?[address] ?[place] [address] ? CT Scan Report ? Signed ? Patient: Pippa Camilo I ?MR#: [id number] ?? [id number] ? : 1960 ?Acct:[id number] ? Age/Sex: 63 / F ?ADM Date: 02/10/24 ? Loc: HO.CT ? Attending Dr: Tank Avina MD ? Ordering Physician: Tank Avina MD ?? Date of Service: 02/10/24 ?? Procedure(s): CT chest w IV con ?? Accession Number(s): [id number] ? cc: Tank Avina MD; Edmund Valentino MD ? EXAMINATION: ?? CT CHEST WITH CONTRAST [...] ??02/21/2024 08:57 AM EST RP ?? Workstation: [id number] ? Dictated By: ?Cristino Keith MD ? Signed By: ?<Electronically signed by Cristino Keith MD in OV> ?02/21/24 0857 ? DD/ 0756 ? TD/TT: 02/10/24 0816 ? Consumer Safety Officer: ? Procedure Note Joanie, Perfecto - 02/21/[address] [place] [address] [address] Scan Report Signed Patient: Pippa Camilo IMR#: [id number] : 1960Acct:[id number] Age/Sex: 63 / FADM Date: 02/10/24 Loc: HO.CT Attending Dr: Tank Avina MD Ordering Physician: Tank Avina MD Date of Service: 02/10/24 Procedure(s): CT chest w IV con Accession Number(s): [id number] cc: Tank Avina MD; Name,Edmund HERNANDEZ EXAMINATION: [...] MD 02/21/2024 08:57 AM EST Dictated By: Cristino Keith MD Signed By: <Electronically signed by Cristino Keith MD in OV> 02/21/24 0857 DD/ 0756 TD/TT: 02/10/24 0816 Consumer Safety Officer: [facility] External Provider IMG CT PROCEDURES Edited Result - Final * POCT Creatinine GFR (02/10/2024 7:50 AM EST) POCT Creatinine 0.7 0.5 - 1.4 mg/dL [facility] GFR POC >60 [facility] Comment:Chronic Kidney Disea se: Estimated GFR < 60 mL/min/1.85o5Bvnxta Kidney Disease: Estimated GFR < 15 mL/min/1.73m2 02/10/2024 7:50 AM EST 02/14/2024 7:57 AM EST Narrative [facility] - 02/14/2024 8:00 AM EST [id number] Generic External Data Provider LAB POINT OF CARE TEST DOCKED DEVICE ORDERABLES Final Result [facility] [address] [place] [address] [phone] * POCT rapid strep A manually resulted (01/20/2024 12:56 PM EST) Rapid Strep A Screen Negative Negative, None Detected [facility] Swab 01/20/2024 12:5 6 PM EST [facility] RN NEONATAL POINT OF CARE TEST ENTER/EDIT ORDERABLES Final Result Performing Organization Address [facility] de Phone Number [facility] [address] [place] [phone] * Albumin, Random Urine W/Creatinine (12/06/2023 10:00 AM EDT) Creatinine, Urine 123.16 mg/dL [facility] Microalbumin Urine 11.0 mg/L [facility] Microalbum Creatinine Ratio Ur 8.9 <30 ug/mg cr [facility] Comment:Albumin/Creatinine R atio Reference Ranges: Normal: < 30 ug/mg creatinine Microalbuminuria: 30 - 300 ug/mg creatinineClinical Albuminuria: > 300 ug/mg creatinine Urine (Urine, Random) 12/06/2023 10:00 AM EDT 12/06/2023 11:23 AM EDT us Edmund Valentino MD LAB URINE ORDERABLES Final Resul t Performing Organization Address [facility] Co de Phone Number [facility] [address] [place] [phone] * (ABNORMAL) POCT HGB A1C (12/06/2023 9:03 AM EDT) Hemoglobin A1C 6.6(A) 4.0 - 6.0 % QC Media Lot # [id number] Lot# Expiration Date ,881,613 Blood 12/06/2023 9:03 AM EDT us Edmund Valentino MD POINT OF CARE TEST ENTER/EDIT OR DERABLES Final Result * BI Mammogram Screening Tomosynthesis Bilateral (07/05/2023 1:55 PM EDT) Anatomical Region Laterality Modality Breast Bilateral Mammography 07/05/2023 1:55 PM EDT Narrative 08/04/2023 1:26 PM EDT ? [facility] ? [address] ?[place] [address] ? Mammography Report ? Signed ? Patient: Renetta Colon,Pippa I ?MR#: [id number] ?? [id number] ? : 1960 ?Acct:[id number] ? Age/Sex: 63 / F ?ADM Date: 07/05/23 ? Loc: HO.MAMMO ? Attending Dr: Tank Avina MD ? Ordering Physician: Tank Avina MD ?Results: 2Benig ?? n Findings ? Date of Service: 07/05/23 ?Follow Up: 1 Year From Orig ?? inal Mammogram ? Procedure(s): MM tomosynthesis screening BI ?? Accession Number(s): [id number] ? cc: Tank Avina MD; NameEdmund MD [...] 1323 ? DD/ 1355 ? TD/TT: ? Consumer Safety Officer: ? Procedure Note Joanie, Image - 08/04/2023 Candida [facility] [address] [place], [place] [address] Mammography Report Signed Patient: Pippa Camilo IMR#: [id number] : 1960Acct:[id number] Age/Sex: 63 / FADM Date: 07/05/23 Loc: HO.MAMMO Attending Dr: Tank Avina MD Ordering Physician: Tank Avina MDResults: 2Benig n Findings Date of Service: 07/05/23Follow Up: 1 Year From Orig inal Mammogram Procedure(s): MM tomosynthesis screening BI Accession Number(s): [id number] cc: Tank Avina MD; Name,Edmund HERNANDEZ EXAMINATION: [...] in OV> 08/04/23 1323 DD/ 1355 TD/TT: Consumer Safety Officer: [facility] External Provider IMG BI PROCEDURES Final Result * (ABNORMAL) Lipid Panel, Standard (06/07/2023 11:34 AM EDT) Triglycerides 125 <150 mg/dL [facility] Comment:Desirable Triglyceri de: less than 150 mg/dLBorderline High Triglyceride 150-199 mg/dLHigh Triglyceride: 200-499 mg/dLVery High Triglyceride: greater than or equal to 5OO mg/dL Cholesterol 225(H) <200 mg/dL [facility] Comment:Desirable Cholestero l: less than 200 mg/dLBorderline High Cholesterol: 200-239 mg/dLHigh Cholesterol: greater than 239 mg/dL LDL Cholesterol Calculated 141(H) <100 mg/dL [facility] Comment:Desirable LDL: less than 100 mg/dLNear Optimal/Above Optimal LDL: 110- 129 mg/dLBorderline High LDL: 130-159 mg/dLHigh LDL: 160-189 mg/dLVery High LDL: greater than or equal to 190 mg/dL HDL Cholesterol 59 >40 mg/dL [facility] Comment:Desirable HDL: great er than 40 mg/dL Note: This HDL assay may give artificially low results in patients with liver disease. Blood Venous blood specimen / Unknown 06/07/2023 11:34 AM EDT 06/07/2023 1:12 PM EDT us Beth Blanco ADVANCED MANUFACTURING VICE PRESIDENT LAB BLOOD ORDERABLES Final Resul t [facility] [address] [place] [address] [phone] * Diabetes Eye Exam (03/29/2023) Eye Exam Normal Normal 03/29/2023 us Edmund Name HEALTH MAINTENANCE Final Result * Colonoscopy (05/06/2021) Colonoscopy Normal Normal Narrative Rita Jimenez - 05/06/2021 Recommended 5 year follow up us Historical Provider HEALTH MAINTENANCE Final Result from Last 3 Months or Most Recently Relevant to Health Maintenance Insurance [facility] Care Teams Assisted Living Care Manager Relationship Specialty Start Date End Date Name, MD Edmund [address] [place] [address] PCP - General Family Medicine 04/04/15
--- OUTSIDE RECORDS SUMMARY | 2024-04-19 11:29 | XMS_ITS | Encounter Summary ---
Author Organization [facility] Address [address] [place] [address] Care Team Providers Care Geotechnician Name Role Phone Name, Edmund HERNANDEZ Primary Care Provider Unavailabl e Encounter Details Date Type Department Care Team Description 06/24/2011 Business Doc Medical Records [address] [place] [address] Abstract, Provider Social History Tobacco Use Types [...] on filedocumented in this encounter Care Teams Geotechnician Relationship Specialty Start Date End Date Name, MD Edmund PCP - General Internal Medicine 01/28/11 documented as of this encounter
--- OUTSIDE RECORDS SUMMARY | 2024-04-19 11:29 | XMS_ITS | Encounter Summary ---
Author Organization [facility] Address [address] [place] [address] Care Team Providers Care Moveman Name Role Phone Name, Edmund HERNANDEZ Primary Care Provider Unavailabl e Encounter Details Date Type Department Care Team Description 07/08/2011 Hospital Medical Records [address] [place] [address] Karsten Christian MD [address] [place] [address] Social History Tobacco Use Types Packs/Day Years [...] on filedocumented in this encounter Care Teams Moveman Relationship Specialty Start Date End Date Name, MD Edmund PCP - General Internal Medicine 01/28/11 documented as of this encounter
--- OUTSIDE RECORDS SUMMARY | 2024-04-19 11:29 | XMS_ITS | Encounter Summary ---
Author Organization [employer] [facility] Address [address] [place] [address] 7 [place] [address] Care Team Providers Care Precinct Police Captain Name Role Phone Name, Edmund HERNANDEZ Primary Care Provider [phone] Encounter Details Date Type Department Care Team (Latest Contact Info) Description 08/26/2020 Abstract [facility] CONVERSIONS Dental, Provider, DDS Social History Tobacco [...] Description 07/17/2024 10:00 AM EDT Office Visit [facility] MEDICINE [address] [place] [address] NameEdmund MD [address] [place] [address] documented as of this encounter Visit Diagnoses Not on filedocumented in this encounter Care Teams Precinct Police Captain Relationship Specialty Start Date End Date Edmund Valentino MD [address] [place] [address] PCP - General Family Medicine 04/04/15 documented as of this encounter
--- OUTSIDE RECORDS SUMMARY | 2024-04-19 11:29 | XMS_ITS | Encounter Summary ---
Author Organization [facility] Address [address] [place] [address] Care Team Providers Care Floorman Name Role Phone Name, Edmund HERNANDEZ Primary Care Provider Unavailabl e Encounter Details Date Type Department Care Team Description 01/01/2013 Transfer Records Medical Records [address] [place] [address] Abstract, Provider Social History Tobacco Use Types [...] on filedocumented in this encounter Care Teams Floorman Relationship Specialty Start Date End Date Name, MD Edmund PCP - General Internal Medicine 01/28/11 documented as of this encounter
--- OUTSIDE RECORDS SUMMARY | 2024-04-19 11:29 | XMS_ITS | Encounter Summary ---
Author Organization [employer] [facility] Address [address] [place] [address] Care Team Providers Care Over Hauler Helper Name Role Phone Name, Edmund HERNANDEZ Primary Care Provider Unavailabl e Encounter Details Date Type Department Care Team Description 03/16/2011 Business Doc Medical Records [address] [place] [address] Abstract, Provider Social History Tobacco Use Types [...] on filedocumented in this encounter Care Teams Over Hauler Helper Relationship Specialty Start Date End Date Name, MD Edmund PCP - General Internal Medicine 01/28/11 documented as of this encounter
--- OUTSIDE RECORDS SUMMARY | 2024-04-19 11:29 | XMS_ITS | Encounter Summary ---
Author Organization [employer] [facility] Address [address] [place] [address] Care Team Providers Care Brake Drum Lathe Operator Name Role Phone Community, Pcp Primary Care Provider Unavailjose e Edmund Valentino MD Primary Care Provider Unavailjose e Encounter Details Date Type Department Care Team Description 01/11/2011 Transfer Records Medical Records [address] [place] [address] Abstract, Provider Social History Tobacco Use Types [...] on filedocumented in this encounter Care Teams Brake Drum Lathe Operator Relationship Specialty Start Date End Date Community, Pcp PCP - General Internal Medicine 01/05/11 01/27/11 Edmund Valentino MD PCP - General Internal Medicine 01/28/11 documented as of this encounter
--- OUTSIDE RECORDS SUMMARY | 2024-04-19 11:29 | XMS_ITS | Encounter Summary ---
Author Organization [employer] [facility] Address [address] [place] [address] Care Team Providers Care Ict Sales Representative Name Role Phone Community, Pcp Primary Care Provider Unavailjose e Edmund Valentino MD Primary Care Provider Unavailjose e Encounter Details Date Type Department Care Team Description 01/07/2011 Release of Information Medical Records [address] [place] [address] Abstract, Provider Social History Tobacco Use Types [...] on filedocumented in this encounter Care Teams Ict Sales Representative Relationship Specialty Start Date End Date Community, Pcp PCP - General Internal Medicine 01/05/11 01/27/11 Edmund Valentino MD PCP - General Internal Medicine 01/28/11 documented as of this encounter
--- OUTSIDE RECORDS SUMMARY | 2024-04-19 11:29 | XMS_ITS | Encounter Summary ---
Author Organization [employer] Address [address] [facility] 7 [place] [address] Care Team Providers Care Sand Car Worker Name Role Phone Name, Edmund HERNANDEZ Primary Care Provider [phone] Reason for Visit * Reason Comments Med Refill Encounter Details Date Type Department Care Team ([facility] st Contact Info) Description 01/27/2024 Refill [facility] MED[facility] [address] [place], [place] [phone] Beth Blanco NP [address] [place] [address] Social History Tobacco Use Types Packs/Day Years [...] Description 07/17/2024 10:00 AM EDT Office Visit [facility] [address] [place] [address] Name, MD Edmund [address] [place] [address] documented as of this encounter Visit Diagnoses Not on filedocumented in this encounter Additional Health Concerns Assessment Noted Time PHQ-9 Depression Total Score: 0 07/29/19 24 9:26 AM EDT documented as of this encounter Care Teams Sand Car Worker Relationship Specialty Start Date End Date Name, MD Edmund [address] [place] [address] PCP - General Family Medicine 04/04/15 documented as of this encounter
--- OUTSIDE RECORDS SUMMARY | 2024-04-19 11:29 | XMS_ITS | Encounter Summary ---
Author Organization [facility]la [facility] Address [address] [place] [address] Care Team Providers Care Mixing Supervisor Name Role Phone Name, Edmund HERNANDEZ Primary Care Provider Unavailabl e Encounter Details Date Type Department Care Team Description 12/04/2014 Business Doc Medical Records [address] [place] [address] Abstract, Provider Social History Tobacco Use Types [...] on filedocumented in this encounter Care Teams Mixing Supervisor Relationship Specialty Start Date End Date Name, MD Edmund PCP - General Internal Medicine 01/28/11 documented as of this encounter
--- OUTSIDE RECORDS SUMMARY | 2024-04-19 11:29 | XMS_ITS | Encounter Summary ---
Author Organization [employer] Address [address] [facility] 7 [place] [address] Care Team Providers Care Public Relations Consultant Name Role Phone Name, Edmund HERNANDEZ Primary Care Provider [phone] Encounter Details Date Type Department Care Team (Late st Contact Info) Description 05/12/2022 Orders Only [facility] [address] [place], [place] [phone] Sarah Sherwood LPN Social History Tobacco Use [...] Description 07/17/2024 10:00 AM EDT Office Visit [facility] MEDICINE [address] [place] [address] Name, MD Edmund [address] [place] [address] documented as of this encounter Procedures Procedure Name Priority Date/Time Associated Diagnosis Comments VASC US LOWER EXTREMITY VENOUS DUPLEX RIGHT Routine 06/11/2022 2:15 PM EDT XR CHEST 2 VIEWS Routine 05/19/2022 5:03 PM EDT documented in this encounter Results * Vascular US lower extremity venous duplex right (06/11/2022 2:15 PM EDT) 06/11/2022 2:15 PM EDT Narrative [facility] - 06/11/2022 3:03 PM EDT ? [facility] ?[address] ?[place], [place] [address] ? Ultrasound Report ? Signed ? Patient: Pippa Camilo I ?MR#: [id number] ? : 1960 ?Acct:[id number] ? Age/Sex: 61 / F ?ADM Date: 06/11/22 ? Loc: HO.US ? Attending Dr: Uli Prakash MD ? Ordering Physician: ULI PRAKASH MD ?? Date of Service: 06/11/22 ?? Procedure(s): US venous duplex LE RT ?? Accession Number(s): [id number] ? cc: ULI PRAKASH MD ? EXAMINATION: [...] 1500 ? DD/ 1415 ? TD/TT: ? Passenger Locomotive Engineer: SK ? Procedure Note Donotuseinterpreter, Image - 06/11/[address] [address] Ultrasound Report Signed Patient: Pippa Camilo IMR#: [id number] : 1960Acct:[id number] Age/Sex: 61 / FADM Date: 06/11/22 Loc: HO.US Attending Dr: Uli Prakash MD Ordering Physician: ULI PRAKASH MD Date of Service: 06/11/22 Procedure(s): US venous duplex LE RT Accession Number(s): [id number] cc: ULI PRAKASH MD EXAMINATION: US VENOUS [...] in OV> 06/11/22 1500 DD/ 1415 TD/TT: Passenger Locomotive Engineer: JOSE us [facility] External Provider CV VASC ULAR PROCEDURES Edited Result - Final [facility] [address] [place] [address] * XR Chest 2 Views (05/19/2022 5:03 PM EDT) Anatomical Region Laterality Modality Chest Radiographic Suzanne ging 05/19/2022 5:03 PM EDT Narrative 05/25/2022 1:42 PM EDT ? [facility] ?[address] ?[place] [address] ?XRay Report ? Signed ? Patient: Renetta Colon,Pippa I ?MR#: [id number] ? : 1960 ?Acct:[id number] ? Age/Sex: 61 / F ?ADM Date: 05/19/22 ? Loc: HO.XRAY ? Attending Dr: Uli Prakash MD ? Ordering Physician: ULI PRAKASH MD ?? Date of Service: 05/19/22 ?? Procedure(s): XR chest 2V ?? Accession Number(s): [id number] ? cc: ULI PRAKASH MD ? EXAMINATION: [...] 1340 ? DD/ 1703 ? TD/TT: ? Passenger Locomotive Engineer: SERGIO ? Procedure Note Joanie, Image - 05/25/[address] [address] XRay Report Signed Patient: Pippa Camilo [facility]#: [id number] : 1960Acct:[id number] Age/Sex: 61 / FADM Date: 05/19/22 Loc: [place] Attending Dr: Uli Prakash MD Ordering Physician: ULI PRAKASH MD Date of Service: 05/19/22 Procedure(s): XR chest 2V Accession Number(s): [id number] cc: ULI PRAKASH MD EXAMINATION: XR CHEST [...] in OV> 05/25/22 1340 DD/ 1703 TD/TT: Passenger Locomotive Engineer: SERGIO Authorahsan Provider Result Type Result Stat [facility] External Provider IMG XR PROCEDURES Edited Result - Final documented in this encounter Visit Diagnoses Not on filedocumented in this encounter Care Teams Public Relations Consultant Relationship Specialty Start Date End Date Name, MD Edmund [address] [place] [address] PCP - General Family Medicine 04/04/15 documented as of this encounter
--- OUTSIDE RECORDS SUMMARY | 2024-04-19 11:29 | XMS_ITS | Encounter Summary ---
Author Organization [employer] [facility] Address [address] [place] [address] Care Team Providers Care Permastone Applicator Name Role Phone Name, Edmund HERNANDEZ Primary Care Provider Unavailabl e Encounter Details Date Type Department Care Team Description 04/01/2011 Hammersmith Helper Report Medical Records [address] [place] [address] Carlos Enrique Leggett MD, MD Social History Tobacco Use Types Packs/Day Years Used Date Smoking Tobacco: Former Alcohol Use Standard Drinks/Week Comments No 0 (1 standard drink = 0.6 oz pur e alcohol) Sex Assigned at Date Recorded Not on file documented as of this encounter Plan of Treatment Not on file documented as of this encounter Visit Diagnoses Not on filedocumented in this encounter Care Teams Permastone Applicator Relationship Specialty Start Date End Date Name, MD Edmund PCP - General Internal Medicine 01/28/11 documented as of this encounter
--- OUTSIDE RECORDS SUMMARY | 2024-04-19 11:29 | XMS_ITS | Encounter Summary ---
Author Organization [employer] Address [address] [facility] 7 [place] [address] Care Team Providers Care Manager Transportation Planning Name Role Phone Name, Edmund HERNANDEZ Primary Care Provider [phone] Reason for Visit * Reason Comments Med Refill Encounter Details Date Type Department Care Team ([facility] st Contact Info) Description 01/20/2024 Refill [facility] [address] [place], [place] [phone] Name, MD Edmund [address] [place] [address] Social History Tobacco Use Types Packs/Day Years [...] Description 07/17/2024 10:00 AM EDT Office Visit [facility] [address] [place] [address] Name, MD Edmund [address] [place] [address] documented as of this encounter Visit Diagnoses Not on filedocumented in this encounter Additional Health Concerns Assessment Noted Time PHQ-9 Depression Total Score: 0 07/29/19 24 9:26 AM EDT documented as of this encounter Care Teams Manager Transportation Planning Relationship Specialty Start Date End Date Name, MD Edmund [address] [place] [address] PCP - General Family Medicine 04/04/15 documented as of this encounter
--- OUTSIDE RECORDS SUMMARY | 2024-04-19 11:30 | XMS_ITS | Encounter Summary ---
Author Organization [employer] [facility] Address [address] [place] [address] Care Team Providers Care Quilt Maker Name Role Phone Name, Edmund HERNANDEZ Primary Care Provider Unavailabl e Encounter Details Date Type Department Care Team Description 08/19/2014 Swage Tender Report Medical Records [address] [place] [address] Freddie Flores Social History Tobacco Use Types [...] on filedocumented in this encounter Care Teams Quilt Maker Relationship Specialty Start Date End Date Name, MD Edmund PCP - General Internal Medicine 01/28/11 documented as of this encounter
--- OUTSIDE RECORDS SUMMARY | 2024-04-19 11:30 | XMS_ITS | Encounter Summary ---
Author [facility] Address [address] [place] [address] Care Team Providers Care Compensation Expert Name Role Phone NameEdmund MD Primary Care Provider Unavailabl e Reason for Visit * Reason Onset Date Comments er follow up 07/20/2012 Christy Encounter Details Date Type Department Care Team Description 07/20/2012 Telephone Adult Medicine [address] [address] Name, MD Edmund er follow up (Gee) [...] Which ER did they go to? : [facility] Was the patient admitted? : No. How is the patient feeling? : no change in health status Disposition? : Appointment made for patient at [facility] in 5 day(s) Comments: pain in right side of brain documented in this encounter Plan of Treatment Not on file documented as of this encounter Visit Diagnoses Not on filedocumented in this encounter Care Teams Compensation Expert Relationship Specialty Start Date End Date Name, MD Edmund PCP - General Internal Medicine 01/28/11 documented as of this encounter
--- OUTSIDE RECORDS SUMMARY | 2024-04-19 11:30 | XMS_ITS | Encounter Summary ---
Author Organization [employer] [facility] Address [address] [place] [address] Care Team Providers Care Bus Starter Name Role Phone NameEdmund MD Primary Care Provider Unavailabl e Reason for Visit * Reason Onset Date Comments Dairy Manufacturing Technologist Feedback 04/27/2014 [facility] Encounter Details Date Type Department Care Team Description 04/27/2014 Telephone Adult [address] [address] Name, MD Edmund Dairy Manufacturing Technologist Feedback ([facility]) Social History Tobacco Use Types Packs/Day Years Used Date Smoking Tobacco: Never Smokeless Tobacco: Never Alcohol Use Standard Drinks/Week Comments No 0 (1 standard drink = 0.6 oz pur e alcohol) Sex Assigned at Date Recorded Not on file documented as of this encounter Miscellaneous Notes * Telephone Encounter - Ammy Bobby - 04/27/2014 10:41 AM EST Patient sent letter informing them to contact outside specialty office to schedule own appointment No insurance referral required. Message sent to [facility] to fax over labs and Notes to [phone] DX Epistaxis documented in this encounter Plan of Treatment Not on file documented as of this encounter Visit Diagnoses Not on filedocumented in this encounter Care Teams Bus Starter Relationship Specialty Start Date End Date Edmund Valentino MD PCP - General Internal Medicine 01/28/11 documented as of this encounter
--- OUTSIDE RECORDS SUMMARY | 2024-04-19 11:30 | XMS_ITS | Encounter Summary ---
Author Organization [email or web address] [facility] Address [address] [place] [address] Care Team Providers Care City Sanitarian Name Role Phone Name, Edmund HERNANDEZ Primary Care Provider Unavailabl e Encounter Details Date Type Department Care Team Description 06/02/2015 Release of Information Medical Records [address] [place] [address] Abstract, Provider Social History Tobacco Use Types [...] on filedocumented in this encounter Care Teams City Sanitarian Relationship Specialty Start Date End Date Name, MD Edmund PCP - General Internal Medicine 01/28/11 documented as of this encounter
--- OUTSIDE RECORDS SUMMARY | 2024-04-19 11:30 | XMS_ITS | Encounter Summary ---
Author Organization [facility] Address [address] [place] [address] Care Team Providers Care Transformer Coil Winder Name Role Phone Name, Edmund HERNANDEZ Primary Care Provider Unavailabl e Encounter Details Date Type Department Care Team Description 05/31/2016 Vp Packaging Report Medical Records [address] [place] [address] Monica Duque [address] [place] [address] Social History Tobacco Use Types Packs/Day Years [...] on filedocumented in this encounter Care Teams Transformer Coil Winder Relationship Specialty Start Date End Date Name, MD Edmund PCP - General Internal Medicine 01/28/11 documented as of this encounter
--- OUTSIDE RECORDS SUMMARY | 2024-04-19 11:30 | XMS_ITS | Encounter Summary ---
Author Organization [facility] Address [address] [place] [address] Care Team Providers Care Web Press Operator Apprentice Name Role Phone Name, Edmund HERNANDEZ Primary Care Provider Unavailabl e Encounter Details Date Type Department Care Team Description 09/21/2011 Business Doc Medical Records [address] [place] [address] Abstract, Provider Social History Tobacco Use Types [...] on filedocumented in this encounter Care Teams Web Press Operator Apprentice Relationship Specialty Start Date End Date Name, MD Edmund PCP - General Internal Medicine 01/28/11 documented as of this encounter
--- OUTSIDE RECORDS SUMMARY | 2024-04-19 11:30 | XMS_ITS | Encounter Summary ---
Author Organization [facility] Address [address] [place] [address] Care Team Providers Care Account Technician Name Role Phone Name, Edmund HERNANDEZ Primary Care Provider Unavailabl e Encounter Details Date Type Department Care Team Description 07/26/2014 Business Doc Medical Records [address] [place] [address] Abstract, Provider Social History Tobacco Use Types [...] on filedocumented in this encounter Care Teams Account Technician Relationship Specialty Start Date End Date Name, MD Edmund PCP - General Internal Medicine 01/28/11 documented as of this encounter
--- OUTSIDE RECORDS SUMMARY | 2024-04-19 11:30 | XMS_ITS | Encounter Summary ---
Author Organization [facility] [facility] Address [address] [place] [address] Care Team Providers Care Machine Group Leader Name Role Phone Edmund Valentino MD Primary Care Provider Unavailabl e Encounter Details Date Type Department Care Team Description 08/30/2013 Orders Only Adult Medicine [address] [address] Name, MD Edmund Social History Tobacco Use [...] on filedocumented in this encounter Care Teams Machine Group Leader Relationship Specialty Start Date End Date Edmund Valentino MD PCP - General Internal Medicine 01/28/11 documented as of this encounter
--- OUTSIDE RECORDS SUMMARY | 2024-04-19 11:30 | XMS_ITS | Encounter Summary ---
Author Organization [employer] [facility] Address [address] [place] [address] Care Team Providers Care Cardiothoracic Anesthesia Technician Name Role Phone Name, Edmund HERNANDEZ Primary Care Provider Unavailabl e Encounter Details Date Type Department Care Team Description 01/31/2012 Hydroelectric Systems Technician Report Medical Records [address] [place] [address] Ni Rolle Social History Tobacco Use Types Packs/Day Years [...] on filedocumented in this encounter Care Teams Cardiothoracic Anesthesia Technician Relationship Specialty Start Date End Date Name, MD Edmund PCP - General Internal Medicine 01/28/11 documented as of this encounter
--- OUTSIDE RECORDS SUMMARY | 2024-04-19 11:30 | XMS_ITS | Encounter Summary ---
Author Organization [employer] [facility] Address [address] [place] [address] Care Team Providers Care Ticker Wirer Name Role Phone Name, Edmund HERNANDEZ Primary Care Provider Unavailabl e Encounter Details Date Type Department Care Team Description 10/14/2011 Release of Information Medical Records [address] [place] [address] Abstract, Provider Social History Tobacco Use Types [...] on filedocumented in this encounter Care Teams Ticker Wirer Relationship Specialty Start Date End Date Name, MD Edmund PCP - General Internal Medicine 01/28/11 documented as of this encounter
--- OUTSIDE RECORDS SUMMARY | 2024-04-19 11:30 | XMS_ITS | Encounter Summary ---
Author Organization [employer] [facility] Address [address] [place] [address] Care Team Providers Care Instrumentation Supervisor Name Role Phone Name, Edmund HERNANDEZ Primary Care Provider Unavailabl e Encounter Details Date Type Department Care Team Description 07/01/2014 Ops Manager Report Medical Records [address] [place] [address] Suresh Short MD Social History Tobacco Use [...] on filedocumented in this encounter Care Teams Instrumentation Supervisor Relationship Specialty Start Date End Date Name, MD Edmund PCP - General Internal Medicine 01/28/11 documented as of this encounter
--- OUTSIDE RECORDS SUMMARY | 2024-04-19 11:30 | XMS_ITS | Encounter Summary ---
Author Organization [employer] [facility] Address [address] [place] [address] Care Team Providers Care Third Rail Installer Name Role Phone Name, Edmund HERNANDEZ Primary Care Provider Unavailabl e Encounter Details Date Type Department Care Team Description 05/31/2014 Departmental Shipping Clerk Report Medical Records [address] [place] [id number] Suresh Short MD Social History Tobacco Use [...] on filedocumented in this encounter Care Teams Third Rail Installer Relationship Specialty Start Date End Date Name, MD Edmund PCP - General Internal Medicine 01/28/11 documented as of this encounter
--- OUTSIDE RECORDS SUMMARY | 2024-04-19 11:30 | XMS_ITS | Encounter Summary ---
Author Organization [employer] [facility] Address [address] [place] [address] Care Team Providers Care Flight Control Specialist Name Role Phone Name, Edmund HERNANDEZ Primary Care Provider Unavailabl e Encounter Details Date Type Department Care Team Description 05/08/2014 Composing Room Machinist Apprentice Report Medical Records [address] [place] [id number] Karsten Kohli MD Social History Tobacco Use [...] on filedocumented in this encounter Care Teams Flight Control Specialist Relationship Specialty Start Date End Date Name, MD Edmund PCP - General Internal Medicine 01/28/11 documented as of this encounter
--- OUTSIDE RECORDS SUMMARY | 2024-04-19 11:30 | XMS_ITS | Encounter Summary ---
Author Organization [facility] Address [address] [place] [address] Care Team Providers Care Trestle Builder Name Role Phone Edmund Beck MD Primary Care Provider Unavailabl e Reason for Visit * Reason Onset Date Comments Follow-up Appt Unavailable 05/02/2012 Encounter Details Date Type Department Care Team Description 05/02/2012 Telephone Adult Medicine [address] [address] Name, MD Edmund Follow-up Appt Unavailable Social [...] TO LET HER KNOW ABOUT APPT IN [place]. documented in this encounter Plan of Treatment Not on file documented as of this encounter Visit Diagnoses Not on filedocumented in this encounter Care Teams Trestle Builder Relationship Specialty Start Date End Date Name, MD Edmund PCP - General Internal Medicine 01/28/11 documented as of this encounter
--- OUTSIDE RECORDS SUMMARY | 2024-04-19 11:30 | XMS_ITS | Encounter Summary ---
Author Organization [facility] Address [address] [place] [address] Care Team Providers Care Nuclear Criticality Safety Engineer Name Role Phone Name, Edmund HERNANDEZ Primary Care Provider Unavailabl e Reason for Visit * Reason Onset Date Comments TEST RESULTS 05/26/2012 Encounter Details Date Type Department Care Team Description 05/26/2012 Telephone Adult [address] [address] Erin Mcqueen NP TEST RESULTS Social History [...] on filedocumented in this encounter Care Teams Nuclear Criticality Safety Engineer Relationship Specialty Start Date End Date Name, MD Edmund PCP - General Internal Medicine 01/28/11 documented as of this encounter
--- OUTSIDE RECORDS SUMMARY | 2024-04-19 11:30 | XMS_ITS | Clinical Summary ---
Author Organization [facility] Address [address] [place] [address] Care Team Providers Care Director Of Global Talent Name Role Phone Name, Edmund HERNANDEZ Primary Care Provider Unavailabl e Allergies Active Allergy Reactions Severity Noted Date Comments Alprazolam Nausea and Vomiting,Swelling/Marcus ma,OTHER 03/06/2008 Patient describes that she had a withdrawal from this medication causing extreme anxiety and dificulty breathin. She denies an actual allergy to this medicine Aspirin Nausea and Vomiting,Swelling/Marcus ma,OTHER 03/06/2008 Throat closing Codeine Nausea and Vomiting,Swelling/Marcus ma,OTHER 03/06/2008 Throat closing Iv Contrast Dye Nausea and Vomiting,Swelling/Marcus ma,OTHER 03/06/2008 Throat closing Penicillin V Potassium Nausea and Vomiting,Swelling/Marcus ma,OTHER 03/06/2008 Throat closing Tuberculin 01/09/2013 Medications Medication Sig Dispensed Refills Start Date End Date Status glucose monitoring kit (FREESTYLE) monitoring kitIndications:Imp aired fasting glucose 1 Each by Does not apply route as needed for Other. 1 Each 0 09/28/2011 Active clonazepam (KLONOPIN) 0.5 MG tabletIndications: Depression,Weight gain,Dyspnea,Alope jerry areata,Asthma,Coug h Take 0.5 mg by mouth 2 times daily as needed. 0 Active QYOIUGLJUQ-CDQI-SD FFEINE 50-325-40 MG OR TABS (FIORICET) per tablet Take 1 tablet by mouth every 4 hours as needed for Pain. 30 Tab 0 02/05/2013 Active TAMOXIFEN CITRATE OR Take by mouth. Take 1 tab daily/pt did not know mg 0 Active lidocaine-prilocai ne (EMLA) cream Apply 1 hour before procedure 1 Each 0 12/05/2013 Active hydrocortisone (ANUSOL-HC) 2.5 % rectal cream Apply 2-3 times daily as needed. 30 g 2 12/12/2013 Active omeprazole (PRILOSEC) 20 MG capsule Take 1 Cap by mouth 2 times daily. 180 Cap 1 04/23/2014 Active fluticasone 50 MCG/ACT nasal spray SPRAY TWICE INTO NOSTRIL(S) EVERY DAY 3 Bottle 1 04/23/2014 Active clobetasol (TEMOVATE) 0.05 % ointment Apply sparingly twice a day to affected areas x 2 weeks and then stop x 2 weeks before repeating cycle if needed AVOID SENSITIVE SKIN 30 g 1 06/13/2014 Active ALBUTEROL SULFATE (PROAIR HFA) 108 (90 BASE) MCG/ACT Aero Soln Inhale 2 Puffs into the lungs 4 times daily as needed for Wheezing. 1 Inhaler 5 07/17/2014 Active venlafaxine (EFFEXOR) 25 MG tablet TAKE 1 TABLET BY MOUTH EVERY NIGHT AT BEDTIME FOR HOT FLASHES 90 Tab 1 11/01/2014 Active levothyroxine 100 MCG tablet Take 1 Tab by mouth daily. 90 Tab 1 11/29/2014 Active metoprolol (LOPRESSOR) 50 MG tablet Take 1 Tab by mouth 2 times daily. 180 Tab 1 11/29/2014 Active montelukast (SINGULAIR) 10 MG tablet Take 1 Tab by mouth at bedtime. 90 Tab 1 02/10/2015 Active fluticasone (FLOVENT HFA) 220 MCG/ACT inhaler Inhale 2 Puffs into the lungs 2 times daily. 120 Act 3 02/10/2015 Active nabumetone (RELAFEN) 500 MG tablet Take 1 Tab by mouth 2 times daily. 60 Tab 5 03/07/2015 Active albuterol (PROVENTIL) (2.5 MG/3ML) 0.083% nebulizer solution Take 1 Vial by nebulization every 4 hours as needed for Wheezing. 100 Vial 2 03/14/2015 Active Lactulose 20 GM/30ML SolutionIndication s:Recurrent ventral incisional hernia Take 30 mL by mouth daily. 500 mL 1 08/14/2015 Active Active Problems Problem Noted Date Hot flash due to medication 11/01/2014 Recurrent ventral incisional hernia 06/29 DJD (degenerative joint disease), lumbos acral 04/23/2014 CTS (carpal tunnel syndrome) 12/12/2013 Atypical lobular hyperplasia of breast 0 08/10/2013 Overview: Patient follows and [facility] and is on Tamoxifen Fibromyalgia 02/05/2013 Umbilical hernia 07/16/2011 Impaired fasting glucose 01/28/2011 Lung nodule 01/08/2011 Overview: F/u recommended somewhere between 01/09 and 07/10 Breast microcalcification, mammographic 01/08/2011 Overview: Biopsied in [place] 07-07-2009, fibrocystic disease. Hypothyroidism 01/05/2011 IBS (irritable bowel syndrome) 9 Helicobacter pylori infection 08/01/2008 GERD (gastroesophageal reflux disease) 0 08/01/2008 Depression 03/21/2008 Overview: The patient follows with Dr Taylor Asthma 03/06/2008 Neck pain 03/06/2008 Overview: Cervical spine disc herniation Hiatal hernia 03/06/2008 Overview: H/o helocobacter pylori Resolved Problems Problem Noted Date Resolved Date High cholesterol 09/04/2008 07/17/2014 Low Back Pain Radiating to Both Legs 08/01/2008 11/22/2012 Palpitations 03/21/2008 03/15/2011 Overview: Sinus tachycardia on outside Holter monitor February 2010 Low back pain radiating to right leg 03/06/2008 08/01/2008 Overview: Mass? Compressing a nerve. Mass is bening. She tells me that she has seen ortho Depression 03/06/2008 03/21/2008 Overview: The patient is disabled because of this problem in [place] Immunizations Name Administration Dates Next Due Influenza (> 6 Months) 12/28/2013,2012,12/08/2011,01/05 Pneumoccoccal(Adult) Polysac charide PPSV23 07/24/2014 Tdap 03/15/2011 Family History Medical History Relation Name Comments CAD Brother 2 Asthma Father CA Prostate Father stomach cancer Father's side aunt, cousin Cataract Maternal Grandmother Asthma Mother Cancer, Other Mother skin cancer Glaucoma Mother CA Breast Mother's side age? aunt, dx odler than 50 yo Cancer of the Colon Paternal Grandfather Diabetes Uncle Blindness Negative Hx CA Ovarian Negative Hx Macular Degeneration Negative Hx Strabismus Negative Hx Uterine Cancer Negative Hx Relation Name Status Comments Aunt maternal Alive Brother 1 Alive low back pain Brother 2 Father prostate cancer Father's side Maternal Grandmother Mother lung cancer Mother's side age? Alive Paternal Grandfather Sister Alive htn Son 1 Alive Son 2 Alive Uncle Social History Tobacco Use Types Packs/Day Years Used Date Smoking Tobacco: Never Smokeless Tobacco: Never Alcohol Use Standard Drinks/Week Comments No 0 (1 standard drink = 0.6 oz pur e alcohol) Sex Assigned at Date Recorded Not on file Last Filed Vital Signs Vital Sign Reading Time Taken Comments Blood Pressure 110/80 08/14/2015 1:04 PM EDT Pulse 60 08/14/2015 1:04 PM EDT Temperature 36.9 ??C (98.4 ??F) 03/07/2015 1:20 PM ES T Respiratory Rate 14 08/14/2015 1:04 PM EDT Oxygen Saturation 96% 03/07/2015 1:20 PM EST Inhaled Oxygen Concentration - - Weight 74.4 kg (164 lb) 08/14/2015 1:04 PM EDT Height 152.4 cm (5') 08/14/2015 1:04 PM EDT Body Mass Index 32.03 08/14/2015 1:04 PM EDT Plan of Treatment Health Maintenance Due Date Last Done Comments Covid-19 Vaccine (#1) 1962 TOBACCO CHECK/ADVISE 1980 SHINGLES VACCINE (1 of 2) 2012 DEPRESSION SCREEN 07/18/2015 07/17/2014 (Ex ternal Completion) CERVICAL CANCER SCREENING 11/16/2015 11/15/2012 (Exc eption) BASELINE HEALTH EXAM 40-64 07/18/201607/18, 07/17/2014, 03/15/2011, Additional history exists MAMMOGRAM 11/11/2017 11/11/2016, 07/2015, 05/28/2015, Additional history exists CHOLESTEROL SCREENING 04/23/2019 04/23/2014 , 05/02/2012, 05/11/2011, Additional history exists DTAP/TDAP/TD (2 - Td or Tdap) 03/15/2021 03/15/2011 COLON CANCER SCREENING 09/19/2022 09/19/2012 INFLUENZA (#1) 2023 12/28/2013, 10/2012, 12/08/2011, Additional history exists BMI CHECK/ADVISE 02/29/2024 01/20/2015, 07/2014, 07/17/2014, Additional history exists PNEUMOCOCCAL VACCINE FOR HIG H RISK PATIENTS (#2) 06/26/2027 07/24/2014 HEPATITIS C SCREENING Completed 10/12/2012 Care Teams Director Of Global Talent Relationship Specialty Start Date End Date Name, MD Edmund PCP - General Internal Medicine 01/28/11
--- OUTSIDE RECORDS SUMMARY | 2024-04-19 11:30 | XMS_ITS | Encounter Summary ---
Author Organization [facility] Address [address] [place] [address] Care Team Providers Care Sky Line Yarder Name Role Phone Name, Edmund HERNANDEZ Primary Care Provider Unavailabl e Encounter Details Date Type Department Care Team Description 11/12/2016 Business Doc Medical Records [address] [place] [phone] Abstract, Provider Social History Tobacco Use Types [...] on filedocumented in this encounter Care Teams Sky Line Yarder Relationship Specialty Start Date End Date Name, MD Edmund PCP - General Internal Medicine 01/28/11 documented as of this encounter
--- OUTSIDE RECORDS SUMMARY | 2024-04-19 11:30 | XMS_ITS | Encounter Summary ---
Author Organization [facility] Address [address] [place] [address] Care Team Providers Care Pathology Secretary Name Role Phone Name, Edmund HERNANDEZ Primary Care Provider Unavailabl e Encounter Details Date Type Department Care Team Description 05/30/2015 Business Doc Medical Records [address] [place] [id number] Abstract, Provider Social History Tobacco Use Types [...] on filedocumented in this encounter Care Teams Pathology Secretary Relationship Specialty Start Date End Date Name, MD Edmund PCP - General Internal Medicine 01/28/11 documented as of this encounter
--- OUTSIDE RECORDS SUMMARY | 2024-04-19 11:30 | XMS_ITS | Encounter Summary ---
Author Organization [employer] [facility] Address [address] [place] [address] Care Team Providers Care Machine Accountant Name Role Phone Name, Edmund HERNANDEZ Primary Care Provider Unavailabl e Encounter Details Date Type Department Care Team Description 11/15/2013 Release of Information Medical Records [address] [place] [id number] Abstract, Provider Social History Tobacco Use Types [...] filedocumented in this encounter Care Teams Machine Accountant Relationship Specialty Start Date End Date Name, MD Edmund PCP - General Internal Medicine 01/28/11 documented as of this encounter
--- OUTSIDE RECORDS SUMMARY | 2024-04-19 11:31 | XMS_ITS | Encounter Summary ---
Author Organization [employer] Address [address] [facility] 7 [place] [address] Care Team Providers Care Hand Mexican Food Maker Name Role Phone Name, Edmund HERNANDEZ Primary Care Provider [phone] Reason for Visit * Reason Onset Date Comments Appointment Request 05/16/2023 Encounter Details Date Type Department Care Team ([facility] st Contact Info) Description 05/16/2023 Telephone [facility] [address] [place], [place] [phone] Name, MD Edmund [address] [place], [place] [phone] Appointment Request Social History Tobacco Use Types [...] to cancel and reschedule appt for 05/15 financial writer did cancel per patients request documented in this encounter Plan of Treatment Upcoming Encounters Date Type Department Care Team (Late st Contact Info) Description 07/17/2024 10:00 AM EDT Office Visit [facility] [address] [place] [address] Name, MD Edmund [address] [place] [address] documented as of this encounter Visit Diagnoses Not on filedocumented in this encounter Care Teams Hand Mexican Food Maker Relationship Specialty Start Date End Date Name, MD Edmund [address] [place] [address] PCP - General Family Medicine 04/04/15 documented as of this encounter
--- OUTSIDE RECORDS SUMMARY | 2024-04-19 11:31 | XMS_ITS | Encounter Summary ---
Author Organization [employer] [facility] Address [address] [place] [address] 7 [place] [address] Care Team Providers Care Cocoa Bean Roaster Helper Name Role Phone Name, Edmund HERNANDEZ Primary Care Provider Encounter Details Date Type Department Care Team (Late Contact Info) Description 07/30/2022 Abstract [facility] [address] [place] [address] [phone] NameEdmund MD [address] [place] [phone] Social History Tobacco Use Types Packs/Day Years [...] 10:00 AM EDT Office Visit [facility]INE [address] [place] [address] [phone] Edmund Valentino MD [address] [place] [address] [phone] documented as of this encounter Visit Diagnoses Not on filedocumented in this encounter Care Teams Cocoa Bean Roaster Helper Relationship Specialty Start Date End Date Name, MD Edmund [address] [place] [address] PCP - General Family Medicine 04/04/15 documented as of this encounter
--- OUTSIDE RECORDS SUMMARY | 2024-04-19 11:31 | XMS_ITS | Encounter Summary ---
Author Organization [employer] Address [address] [facility] 7 [place] [address] Care Team Providers Care Imaging Technician Name Role Phone Name, Edmund HERNANDEZ Primary Care Provider [phone] Reason for Visit * Reason Comments Med Refill Encounter Details Date Type Department Care Team ([facility] st Contact Info) Description 04/02/[address] [facility] [address] [place], [place] [phone] Name, MD Edmund [address] [place] [address] Mild intermittent asthma, unspecified whether complicated Social [...] Description 07/17/2024 10:00 AM EDT Office Visit [facility] [address] [place] [address] Name, MD Edmund [address] [place] [address] documented as of this encounter Visit Diagnoses Diagnosis Mild intermittent asthma, unspecified whether complicated documented in this encounter Additional Health Concerns Assessment Noted Time PHQ-9 Depression Total Score: 0 07/29/19 24 9:26 AM EDT documented as of this encounter Care Teams Imaging Technician Relationship Specialty Start Date End Date Name, MD Edmund [address] [place] [address] PCP - General Family Medicine 04/04/15 documented as of this encounter
--- OUTSIDE RECORDS SUMMARY | 2024-04-19 11:31 | XMS_ITS | Encounter Summary ---
Author Organization [facility] Address [address] [facility] 7 [place] [address] Care Team Providers Care Marketing Business Analyst Name Role Phone Name, Edmund HERNANDEZ Primary Care Provider [phone] Encounter Details Date Type Department Care Team ([facility] Contact Info) Description 09/07/2022 Abstract [facility] [address] [place] [address] [phone] Name, MD Edmund [address] [place] [phone] Social History Tobacco Use Types Packs/Day Years [...] Upcoming Encounters Date Type Department Care Team ([facility] Contact Info) Description 07/17/2024 10:00 AM EDT Office Visit [facility] [address] [place] [address] [phone] Name, MD [facility] [place] [address] documented as of this encounter Procedures Procedure Name Priority Date/Time Associated Diagnosis Comments COLONOSCOPY Routine 05/06/2021 documented in this encounter Results * Colonoscopy (05/06/2021) Colonoscopy Normal Normal Narrative Rita Jimenez - 05/06/2021 Recommended 5 year follow up us Historical Provider HEALTH MAINTENANCE Final Result documented in this encounter Visit Diagnoses Not on filedocumented in this encounter Care Teams Marketing Business Analyst Relationship Specialty Start Date End Date Name, MD Edmund [facility] [place] [address] PCP - General Family Medicine 04/04/15 documented as of this encounter
--- OUTSIDE RECORDS SUMMARY | 2024-04-19 11:31 | XMS_ITS | Encounter Summary ---
Author Organization [employer] Address [address] [facility] 7 [place] [address] Care Team Providers Care R Developer Name Role Phone Name, Edmund HERNANDEZ Primary Care Provider [phone] Reason for Visit * Reason Comments Acupuncture Encounter Details Date Type Department Care Team ([facility] Contact Info) Description 04/19/2024 10:45 AM EST Office Visit [facility] [address] [place] [address] Arrived Social History Tobacco Use Types Packs/Day Years [...] Description 07/17/2024 10:00 AM EDT Office Visit [facility] [address] [place] [address] Name, MD Edmund [address] [place] [address] documented as of this encounter Visit Diagnoses Not on filedocumented in this encounter Additional Health Concerns Assessment Noted Time PHQ-9 Depression Total Score: 0 07/29/19 24 9:26 AM EDT documented as of this encounter Care Teams R Developer Relationship Specialty Start Date End Date NameEdmund MD [address] [place] [phone] PCP - General Family Medicine 04/04/15 documented as of this encounter
--- OUTSIDE RECORDS SUMMARY | 2024-04-19 11:31 | XMS_ITS | Encounter Summary ---
Author Organization [employer] [facility] Address [address] [place] [address] Care Team Providers Care Music Leader Name Role Phone Name, Edmund HERNANDEZ Primary Care Provider Unavailabl e Encounter Details Date Type Department Care Team Description 02/19/2015 Adjunct Art History Instructor Report Medical Records [address] [place] [phone] Karsten Kohli MD Social History Tobacco Use [...] on filedocumented in this encounter Care Teams Music Leader Relationship Specialty Start Date End Date Name, MD Edmund PCP - General Internal Medicine 01/28/11 documented as of this encounter
--- OUTSIDE RECORDS SUMMARY | 2024-04-19 11:31 | XMS_ITS | Encounter Summary ---
Author Organization [employer] [facility] Address [address] [facility] 7 [place] [address] Care Team Providers Care Agriculture Research Director Name Role Phone Name, Edmund HERNANDEZ Primary Care Provider [phone] Encounter Details Date Type Department Care Team ([facility] Contact Info) Description 09/02/2022 Abstract [facility] [address] [place] [address] [phone] Name, MD Edmund [address] [place] [phone] Social History Tobacco Use Types Packs/Day Years [...] Team ([facility] Contact Info) Description 07/17/2024 10:00 AM EDT Office Visit [facility] [address] [place] [address] [phone] Name, MD Edmund [address] [place] [address] documented as of this encounter Visit Diagnoses Not on filedocumented in this encounter Care Teams Agriculture Research Director Relationship Specialty Start Date End Date Name, MD Edmund [address] [place] [address] PCP - General Family Medicine 04/04/15 documented as of this encounter
--- OUTSIDE RECORDS SUMMARY | 2024-04-19 11:31 | XMS_ITS | Encounter Summary ---
Author Organization [employer] Address [address] [facility] 7 [place] [address] Care Team Providers Care Terrazzo Helper Name Role Phone Name, Edmund HERNANDEZ Primary Care Provider [phone] Reason for Visit * Reason Onset Date Comments Results 03/25/2023 Encounter Details Date Type Department Care Team ([facility] st Contact Info) Description 03/25/2023 Telephone [facility] [address] [place], [place] [phone] Name, MD Edmund [address] [place] [address] Results Social History Tobacco Use Types Packs/Day [...] 11:12 AM EST T/C to pt. Through [employer] id - [id number] to inform pt.'s normal x- ray result. [...] results: XRAY Date when done: 03/23/23 Facility: [facility] Please contact at [phone] documented in this encounter Plan of Treatment Upcoming Encounters Date Type Department Care Team (Late st Contact Info) Description 07/17/2024 10:00 AM EDT Office Visit [facility] [address] [place] [address] Name, MD Edmund [address] [place] [address] documented as of this encounter Visit Diagnoses Not on filedocumented in this encounter Care Teams Terrazzo Helper Relationship Specialty Start Date End Date Name, MD Edmund [address] [place] [address] PCP - General Family Medicine 04/04/15 documented as of this encounter
--- OUTSIDE RECORDS SUMMARY | 2024-04-19 11:31 | XMS_ITS | Encounter Summary ---
Author Organization [employer] Address [address] [facility] 7t [place] [address] Care Team Providers Care Curb Hop Name Role Phone Name, Edmund HERNANDEZ Primary Care Provider [phone] Reason for Visit * Reason Comments Med Refill Encounter Details Date Type Department Care Team ([facility] st Contact Info) Description 05/06/2023 Refill [facility] [address] [place], [place] [phone] Name, MD Edmund [address] [place] [address] Social History Tobacco Use Types Packs/Day Years [...] [facility] [address] [place] [phone] NameEdmund MD [address] [place] [phone] documented as of this encounter Visit Diagnoses Not on filedocumented in this encounter Care Teams Curb Hop Relationship Specialty Start Date End Date Edmund Valentino MD [address] [place] [address] PCP - General Family Medicine 04/04/15 documented as of this encounter
--- OUTSIDE RECORDS SUMMARY | 2024-04-19 11:31 | XMS_ITS | Encounter Summary ---
Author Organization [employer] Address [address] [facility] 7 [place] [address] Care Team Providers Care Managing Director Name Role Phone Name, Edmund HERNANDEZ Primary Care Provider [phone] Reason for Referral * Consultation (Routine) - Authorized Specialty Diagnoses / Procedures Referred By Jose Manuel patel Referred To Contact Diagnoses Hoarse voice quality Shona Blandon NP [address] [place] [address] Phone: tel: fax: Abran Thomas [address] [place] [address] Drive [address] [place], [place] [address] Phone: tel: fax: Referral ID Status Reason Start Date Expiration Date Visits Requested Visits Authorized [id number] Authorized Specialty Services Required 04/09/2024 04/09/2025 1 1 Reason for Visit * Reason Comments Cough Sore Throat Nasal Congestion Encounter Details Date Type Department Care Team (Late st Contact Info) Description 04/09/2024 2:00 PM EST Office Visit [facility] [address] [place] [address] Shona Blandon NP [address] [place] [address] Flu-like symptoms (Primary Dx); Strep pharyngitis; Hoarse voice quality Social History Tobacco Use Types Packs/Day Years Used Date Smoking Tobacco: Never Passive Smoke Exposure: Never Smokeless Tobacco: Never Alcohol Use Standard Drinks/Week Comments Never 0 (1 standard drink = 0.6 oz pur e alcohol) Alcohol Answer Date Recorded Frequency of Alcohol Consumption Not on file 08/31/2023 Average Number of Drinks Not on file 024 Frequency of Binge Drinking Not on file 0704/2023 Score 0 08/31/2023 Depression Answer Date Recorded [...] Sign Reading Time Taken Comments Blood Pressure 133/83 04/09/2024 2:09 PM EST Pulse 69 04/09/2024 2:09 PM EST Temperature 36.9 ??C (98.4 ??F) 04/09/2024 2:09 PM ES T Respiratory Rate 16 04/09/2024 2:09 PM EST Oxygen Saturation 98% 04/09/2024 2:09 PM EST Inhaled Oxygen Concentration - - Weight 64.9 kg (143 lb) 04/09/2024 2:09 PM EST Height - - Body Mass Index 27.93 03/12/2024 12:53 PM EST documented in this encounter Progress Notes * Shona Blandon NP - 04/09/2024 2:00 PM EST SUBJECTIVE: Pippa Dean is a 63 y.o. female who presents to the [facility] [place] for a sick visit. Denies recent illness, injury, or hospitalization. Cough Associated symptoms include myalgias and a sore throat. Pertinent negatives include no chest pain, chills, fever, headaches, rash or shortness of breath. Sore Throat Associated symptoms include coughing. Pertinent negatives include no abdominal pain, diarrhea, headaches, neck pain or shortness of breath. Complains of sore throat, weakness, feeling hot and cold/ chills, cough, pain in the area of her lungs. Symptom onset more than 1 week ago. Tolerating fluids, but not much food. States she went to ENT in for hoarseness in her voice, but did not like how she was treated there. Would like new referral as she is concerned about the voice fluctuating Review of Systems Constitutional: Negative. Negative for chills and fever. HENT: Positive for sore throat and voice change. Respiratory: Positive for cough. Negative for chest tightness and shortness of breath. Cardiovascular: Negative for chest pain. Gastrointestinal: Negative for abdominal pain, constipation, diarrhea and nausea. Genitourinary: Negative for dysuria. Musculoskeletal: Positive for myalgias. Negative for arthralgias, back pain and neck pain. Skin: Negative. Negative for rash and wound. Neurological: Positive for weakness. Negative for light-headedness and headaches. Psychiatric/Behavioral: Negative for behavioral problems, confusion, decreased concentration and suicidal ideas. OBJECTIVE: Visit Vitals BP 133/83 (BP Location: Right arm, Patient Position: Sitting, BP Cuff Size: Adult) Pulse 69 Temp 98.4 ??F (36.9 ??C) (Temporal) Resp 16 Wt 143 lb (64.9 kg) SpO2 98% BMI 27.93 kg/m?? Smoking Status Never BSA 1.66 m?? Patient Active Problem List Diagnosis GERD (gastroesophageal reflux disease) Hiatal hernia Acquired hypothyroidism IBS (irritable bowel syndrome) Diabetes mellitus, type 2 (CMS/HCC) Mild persistent asthma Atypical lobular hyperplasia (ALH) of breast Allergic rhinitis Anxiety disorder Benign mammary dysplasia Bradycardia Bradycardia by electrocardiogram Breast cancer (CMS/HCC) Breast microcalcification, mammographic Carpal tunnel syndrome Constipation DJD (degenerative joint disease), lumbosacral Dry eye syndrome Helicobacter pylori infection Hot flash due to medication Hyperlipemia Hypertension Hypertrophic condition of skin Impaired fasting glucose Intraductal carcinoma in situ of breast Joint pain Monoarthritis of knee Obstructive sleep apnea syndrome Pain in knee Palpitations Recurrent ventral incisional hernia Tubular adenoma of colon Umbilical hernia Health maintenance examination Chronic insomnia Class 1 obesity Arthritis of left hip Allergies Osteopenia after menopause Muscle spasm Hypothyroidism Hair loss Hoarse voice quality Office Visit on 04/09/2024 Component Date Value Ref Range Status Influenza A 04/09/2024 Negative Negative, Indeterminate Final Influenza B 04/09/2024 Negative Negative, Indeterminate Final Rapid Strep A Screen 04/09/2024 Positive (A) Negative, None Detected Final Rapid COVID Ag 04/09/2024 Negative Final Physical Exam Vitals reviewed. Constitutional: General: She is not in acute distress. Appearance: Normal appearance. She is not ill-appearing. HENT: Head: Normocephalic and atraumatic. Right Ear: External ear normal. Left Ear: External ear normal. Nose: Nose normal. No congestion. Mouth/Throat: Pharynx: Uvula midline. No oropharyngeal exudate, uvula swelling or postnasal drip. Tonsils: No tonsillar exudate or tonsillar abscesses. Eyes: General: No scleral icterus. Extraocular Movements: Extraocular movements intact. Cardiovascular: Rate and Rhythm: Normal rate and regular rhythm. Pulses: Normal pulses. Heart sounds: Normal heart sounds. Pulmonary: Effort: Pulmonary effort is normal. No respiratory distress. Breath sounds: Normal breath sounds. Musculoskeletal: General: Normal range of motion. Cervical back: Normal range of motion and neck supple. Lymphadenopathy: Cervical: Cervical adenopathy present. Neurological: General: No focal deficit present. Mental Status: She is alert and oriented to person, place, and time. Gait: Gait normal. Psychiatric: Mood and Affect: Mood normal. Behavior: Behavior normal. Assessment/Plan Diagnoses and all orders for this visit: Flu-like symptoms Comments: as noted below Orders: - Influenza A (ID NOW Rapid Molecular) - Influenza B (ID NOW Rapid Molecular) - POCT rapid strep A manually resulted - POCT Rapid COVID Ag Strep pharyngitis Comments: -POCT positive for strep, negative flu and COVID -prescription for pencillin sent to pharmacy -patient informed of the importance of completing full 10 day course of medication. Take medicationwith food and call the clinic with any adverse reactions -Currently afebrile. Counseled supportive measures including salt water gargles, cool drinks or ice/popsicles, humidifier, honey for sore throat, fluids, rest. -May alternate Motrin/Tylenol q4h as needed fever. -advised not to share cups or eating utensils, change tooth brush and bedding after 5 days of antibiotic treatment -RTC if no improvement in 5 days, increased cough or SOB, fever, or severe headache. -ED precautions reviewed. Orders: - penicillin v potassium (Veetid) 500 MG tablet; Take 1 tablet (500 mg) by mouth 2 times daily for 10 days. Hoarse voice quality Comments: -patient request new referral -advised voice rest Orders: - Referral to ENT; Future Other orders - acetaminophen (Tylenol Extra Strength) 500 MG tablet; Take 1 tablet (500 mg) by mouth every 6 (six) hours if needed for mild pain for up to 10 days. Vietnamese Translation: Provided by [facility] staff member Carolyn Medical Interpretor documented in this encounter Plan of Treatment Upcoming Encounters Date Type Department Care Team (Late st Contact Info) Description 07/17/2024 10:00 AM EDT Office Visit [facility] [address] [place] [phone] Name, MD Edmund [address] [place] [address] Scheduled Referrals Name Type Priority Associated Diagnoses Orde r Schedule Referral to ENT Outpatient Referral Routine Hoarse voice quality Expected: 04/09/2024 (Approximate), Expires: 04/09/2025 documented as of this encounter Procedures Procedure Name Priority Date/Time Associated Diagnosis Comments POCT INFLUENZA B (ID NOW RAPID MOLECULAR) Routine 04/09/2024 2:23 PM EST Flu-like symptoms POCT INFLUENZA A (ID NOW RAPID MOLECULAR) Routine 04/09/2024 2:22 PM EST Flu-like symptoms POCT RAPID COVID ANTIGEN Routine 04/09/2024 2:17 PM EST Flu-like symptoms POCT RAPID STREP A Routine 04/09/2024 2: 17 PM EST Flu-like symptoms documented in this encounter Results * Influenza B (ID NOW Rapid Molecular) (04/09/2024 2:23 PM EST) [facility] Influenza B Negative Negative, Indeterminate [facility] Swab 04/09/2024 2:23 PM EST us Shona Blandon GAS PIPE LAYER POINT OF CARE TEST ENTER/EDIT O RDERABLES Final Result Performing Organization Address [facility] Co de Phone Number [facility] [address] [place] [phone] * Influenza A (ID NOW Rapid Molecular) (04/09/2024 2:22 PM EST) [facility] Influenza A Negative Negative, Indeterminate [facility] Swab 04/09/2024 2:22 PM EST us Shona Swift GAS PIPE LAYER POINT OF CARE TEST ENTER/EDIT O RDERABLES Final Result Performing Organization Address [facility] Co de Phone Number [facility] [address] [place] [phone] * POCT Rapid COVID Ag (04/09/2024 2:17 PM EST) [facility] Rapid COVID Ag Negative Swab 04/09/2024 2:17 PM EST us Nagel Appram GAS PIPE LAYER POINT OF CARE TEST ENTER/EDIT O RDERABLES Final Result * (ABNORMAL) POCT rapid strep A manually resulted (04/09/2024 2:17 PM EST) Rapid Strep A Screen Positive( A) Negative, None Detected Swab 04/09/2024 2:17 PM EST [facility] GAS PIPE LAYER POINT OF CARE TEST ENTER/EDIT O RDERABLES Final Result documented in this encounter Visit Diagnoses Diagnosis Flu-like symptoms- Primary Strep pharyngitis Hoarse voice quality Dysphonia documented in this encounter Additional Health Concerns Assessment Noted Time PHQ-9 Depression Total Score: 0 07/29/19 24 9:26 AM EDT documented as of this encounter Care Teams Managing Director Relationship Specialty Start Date End Date Name, MD Edmund [address] [place] [address] PCP - General Family Medicine 04/04/15 documented as of this encounter
--- OUTSIDE RECORDS SUMMARY | 2024-04-19 11:31 | XMS_ITS | Encounter Summary ---
Author Organization [employer] Address [address] [facility] 7t [place] [address] Care Team Providers Care Excel Vba Developer Name Role Phone Name, Edmund HERNANDEZ Primary Care Provider [phone] Reason for Visit * Reason Comments Med Refill Encounter Details Date Type Department Care Team ([facility] st Contact Info) Description 12/30/2022 Refill [facility] [address] [place], [place] [phone] Name, MD Edmund [address] [place] [address] Social History Tobacco Use Types Packs/Day Years [...] 07/17/2024 10:00 AM EDT Office Visit [facility] [address] [place] [phone] NameEdmund MD [address] [place] [phone] documented as of this encounter Visit Diagnoses Not on filedocumented in this encounter Care Teams Excel Vba Developer Relationship Specialty Start Date End Date NameEdmund MD [address] [place] [phone] PCP - General Family Medicine 04/04/15 documented as of this encounter
--- OUTSIDE RECORDS SUMMARY | 2024-04-19 11:31 | XMS_ITS | Encounter Summary ---
Author Organization [employer] Address [address] [facility] 7 [place] [address] Care Team Providers Care Poultry Farmer Egg Name Role Phone Name, Edmund HERNANDEZ Primary Care Provider [phone] Reason for Visit * Reason Comments Med Refill Encounter Details Date Type Department Care Team ([facility] st Contact Info) Description 09/23/2023 Refill [facility] [address] [place], [place] [phone] Name, MD Edmund [address] [place] [address] Mild intermittent asthma, unspecified whether complicated Social [...] [facility] [address] [place] [address] Name, MD Edmund [address] [place] [address] documented as of this encounter Visit Diagnoses Diagnosis Mild intermittent asthma, unspecified whether complicated documented in this encounter Additional Health Concerns Assessment Noted Time PHQ-9 Depression Total Score: 0 07/29/19 24 9:26 AM EDT documented as of this encounter Care Teams Poultry Farmer Egg Relationship Specialty Start Date End Date Name, MD Edmund [address] [place] [address] PCP - General Family Medicine 04/04/15 documented as of this encounter
--- OUTSIDE RECORDS SUMMARY | 2024-04-19 11:31 | XMS_ITS | Encounter Summary ---
Author Organization [employer] Address [address] [place] [address] 7 [place] [address] Care Team Providers Care Screen Printing Machine Operator Name Role Phone Name, Edmund HERNANDEZ Primary Care Provider [phone] Encounter Details Date Type Department Care Team (Late Contact Info) Description 08/19/2022 Abstract [facility] [address] [place] [address] [phone] NameEdmund MD [address] [place] [phone] Social History Tobacco Use Types Packs/Day Years [...] Encounters Date Type Department Care Team (Late Contact Info) Description 07/17/2024 10:00 AM EDT Office Visit [facility] [address] [place] [address] [phone] Edmund Valentino MD [address] [place] [address] [phone] documented as of this encounter Visit Diagnoses Not on filedocumented in this encounter Care Teams Screen Printing Machine Operator Relationship Specialty Start Date End Date Name, MD Edmund [address] [place] [address] PCP - General Family Medicine 04/04/15 documented as of this encounter
--- OUTSIDE RECORDS SUMMARY | 2024-04-19 11:31 | XMS_ITS | Encounter Summary ---
Author Organization [employer] Address [address] [facility] 7 [place] [address] Care Team Providers Care Joy Operator Name Role Phone Name, Edmund HERNANDEZ Primary Care Provider [phone] Reason for Visit * Reason Comments Med Refill Encounter Details Date Type Department Care Team ([facility] st Contact Info) Description 01/06/[address] [facility] [address] [place], [place] [phone] Beth Blanco NP [address] [place] [address] Social History Tobacco Use Types Packs/Day Years [...] 07/17/2024 10:[address] EDT [address] [facility] [address] [place] [address] Name, MD Edmund [address] [place] [address] documented as of this encounter Visit Diagnoses Not on filedocumented in this encounter Additional Health Concerns Assessment Noted Time PHQ-9 Depression Total Score: 0 07/29/19 24 9:26 AM EDT documented as of this encounter Care Teams Joy Operator Relationship Specialty Start Date End Date Name, MD Edmund [address] [place] [phone] PCP - General Family Medicine 04/04/15 documented as of this encounter
--- OUTSIDE RECORDS SUMMARY | 2024-04-19 11:31 | XMS_ITS | Encounter Summary ---
Author Organization [employer] Address [address] [facility] 7 [place] [address] Care Team Providers Care Blower Room Attendant Name Role Phone Name, Edmund HERNANDEZ Primary Care Provider [phone] Reason for Visit * Reason Comments Diabetes Encounter Details Date Type Department Care Team ([facility] st Contact Info) Description 04/19/2024 9:45 AM EST Office Visit [facility] [address] [place] [address] [phone] Name, MD Edmund [address] [place] [address] Type 2 diabetes mellitus without complication, without long-term current use of insulin ([facility]) (Primary Dx); Acquired hypothyroidism; Strep throat Social History Tobacco Use Types Packs/Day Years [...] Mass Index 28.83 04/19/2024 9:54 AM EST documented in this encounter Progress Notes * Edmund Valentino MD - 04/19/2024 9:45 AM EST Images from the original note were not included. Subjective Patient ID: Pippa Dean is a 63 y.o. female who presents for Diabetes. Patient comes for a follow-up visit. She is recovering from strep throat. She was recently prescribed a course of penicillin at the walk-in clinic. She still has mild sore throat and cervical lymphadenopathy. No fevers or chills. Today she has a complaint of bilateral ear discomfort. Her blood sugars well-controlled. BP is well-controlled. She has not been using her metformin or statin regularly. She is using 0.75 mg of Trulicity weekly. Blood sugar is normal today and [id number] is 6.6. Review of Systems Constitutional: Negative for chills and fever. HENT: Positive for sore throat. See HPI Respiratory: Negative for cough, shortness of breath and wheezing. Cardiovascular: Negative for chest pain, palpitations and leg swelling. Gastrointestinal: Negative for abdominal pain. Visit Vitals BP 133/82 (BP Location: Left arm, Patient Position: Sitting, BP Cuff Size: Adult) Pulse 70 Temp 97.2 ??F (36.2 ??C) (Temporal) Resp 14 Ht 5' (1.524 m) Wt 147 lb 9.6 oz (67 kg) SpO2 99% BMI 28.83 kg/m?? Smoking Status Never BSA 1.68 m?? Objective Physical Exam Constitutional: Appearance: Normal appearance. HENT: Head: Comments: She is status post tonsillectomy. Mild erythema without exudates. Tympanic membranes appear normal. I did not palpate any enlarged lymph nodes on exam. Cardiovascular: Rate and Rhythm: Normal rate and regular rhythm. Heart sounds: No murmur heard. No gallop. Pulmonary: Effort: Pulmonary effort is normal. No respiratory distress. Breath sounds: Normal breath sounds. No wheezing. Musculoskeletal: Right lower leg: No edema. Left lower leg: No edema. Neurological: Mental Status: She is alert. Lab Results Component Value Date HGBA1C 6.6 (A) 12/06/2023 HGBA1C 6.3 (H) 06/07/2023 HGBA1C 13.8 (A) 06/06/2023 HGBA1C 7.4 (A) 08/24/2022 HGBA1C 6.7 (A) 04/06/2022 HGBA1C 7.7 (H) 08/22/2019 HGBA1C 7.7 (H) 08/22/2019 HGBA1C 7.7 (H) 08/22/2019 Lab Results Component Value Date WBC 6.1 08/31/2023 HGB 13.5 08/31/2023 HCT 41.1 08/31/2023 MCV 86.9 08/31/2023 PLT 274 08/31/2023 Lab Results Component Value Date GLUCOSE 153 (H) 06/07/2023 NA 144 06/07/2023 K 4.0 06/07/2023 CO2 27 06/07/2023 CL 108 06/07/2023 BUN 13 06/07/2023 CREATININE 0.7 02/10/2024 Albumin, Random Urine W/Creatinine Order: [id number] Status: Final result Visible to patient: Yes (seen) Dx: Type 2 diabetes mellitus without comp... 0 Result Notes 1 HM Topic Component Ref Range & Units 4 mo ago 3 yr ago 4 yr ago Creatinine, Urine mg/dL 123.16 Microalbumin Urine mg/L 11.0 1.9 R, CM 3.2 R, CM Microalbum Creatinine Ratio Ur <30 ug/mg cr 8.9 Comment: Albumin/Creatinine Ratio Reference Ranges: Normal: < 30 ug/mg creatinine Microalbuminuria: 30 - 300 ug/mg creatinineClinical Albuminuria: > 300 ug/mg creatinine Latest Reference Range & Units 04/09/24 14:17 04/09/24 14:22 04/09/24 14:23 Rapid Strep A Screen Negative, None Detected Positive ! Influenza A Negative, Indeterminate Negative Influenza B Negative, Indeterminate Negative Rapid COVID Ag Negative !: Data is abnormal Current Outpatient Medications on File Prior to Visit Medication Sig Dispense Refill acetaminophen (Tylenol Extra Strength) 500 MG tablet Take 1 tablet (500 mg) by mouth every 6 (six) hours if needed for mild pain for up to 10 days. 30 tablet 0 amLODIPine (Norvasc) 5 MG tablet Blood Glucose Monitoring Suppl (Kylin NetworkTouch Verio) w/Device kit USE TO TEST BLOOD SUGAR EVERY DAY 1 kit 0 calcium citrate 333 MG tablet Take 1 tablet (333 mg) by mouth if needed each day (as needed). 90 tablet 2 Diclofenac Sodium 1 % gel APPLY 1 TO 3 GRAMS TO AFFECTED AREA THREE TIMES A DAY TO FOUR TIMES A HXS359 g 1 FreeStyle lancets USAR TO TEST BLOOD SUGAR CLYDE VEZ AL TREVOR 100 each 11 glucose blood (FREESTYLE LITE) test strip TEST BLOOD SUGAR ONCE DAILY 100 each 11 glucose blood (OneTouch Verio) test strip USE TO TEST BLOOD SUGAR ONCE A DAY 100 strip 11 hydrocortisone 2.5 % ointment Apply topically 2 times daily. 20 g 0 levothyroxine (Synthroid, Levoxyl) 88 MCG tablet TAKE ONE TABLET BY MOUTH EVERY MORNING BEFORE BREAKFAST 90 tablet 1 loratadine (Claritin) 10 MG tablet TAKE 1 TABLET BY ORAL ROUTE EVERY DAY 90 tablet 1 metoprolol tartrate (Lopressor) 50 MG tablet Take 1 tablet (50 mg) by mouth 2 times daily. 180 tablet 1 montelukast (Singulair) 10 MG tablet Take 1 tablet by mouth at bed time. OneTouch Delica Lancets 33G misc USE TO TEST BLOOD SUGAR EVERY DAY 100 each 11 OneTouch Delica Lancets 33G misc USE TO TEST BLOOD SUGAR EVERY DAY 100 each 5 pantoprazole (ProtoNix) 40 MG EC tablet penicillin v potassium (Veetid) 500 MG tablet Take 1 tablet (500 mg) by mouth 2 times daily for 10 days. 20 tablet 0 Spacer/Aero-Holding Chambers (OptiChamber Ophelia) misc 1 each every 4 (four) hours if needed (asthma). 1 each 0 Ventolin HFA 108 (90 Base) MCG/ACT inhaler USAR 2 INHALACIONS POR LA BOCA CADA 4 O 6 HORAS REBECA SEANECESARIO 18 g 2 [DISCONTINUED] metFORMIN (Glucophage) 500 MG tablet TAKE 1 TABLET BY ORAL ROUTE 2 TIMES EVERY DAY WITH MORNING AND EVENING MEALS 60 tablet 5 albuterol (2.5 MG/3ML) 0.083% nebulizer solution Take 3 mL (2.5 mg) by nebulization every 6 (six) hours if needed for wheezing or shortness of breath. 75 mL 1 budesonide-formoterol (Symbicort) 160-4.5 MCG/ACT inhaler Inhale. Dulaglutide (Trulicity) 0.75 MG/0.5ML solution auto-injector Inject 0.5 mL (0.75 mg) under the skin1 (one) time per week. INJECT 0.5 ML SUBCUTANEOUSLY EVERY WEEK. 2 mL 5 DULoxetine (Cymbalta) [address] capsule Take 1 capsule (30 mg) by mouth Once per day. 30 capsule 2 fluticasone (Flonase) 50 MCG/ACT nasal spray Administer 2 sprays into each nostril in the morning. 48 g 0 [DISCONTINUED] atorvastatin (Lipitor) 20 MG tablet Take 1 tablet (20 mg) by mouth Once per day. 90 tablet 2 No current facility-administered medications on file prior to visit. Assessment/Plan Diagnoses and all orders for this visit: Type 2 diabetes mellitus without complication, without long-term current use of insulin ([facility]) Comments: Continue current dose of Trulicity. I refilled her metformin and statin. I recommended to use her BP medications daily (she is on amlodipine and metoprolol, she does not have proteinuria). Orders: - POCT Glucose - metFORMIN (Glucophage) 500 MG tablet; TAKE 1 TABLET BY ORAL ROUTE 2 TIMES EVERY DAY WITH MORNING AND EVENING MEALS - atorvastatin (Lipitor) 20 MG tablet; Take 1 tablet (20 mg) by mouth Once per day. Acquired hypothyroidism Comments: I recommended to continue using her levothyroxine and recheck TSH. Orders: - TSH W/Reflex to FT4; Future Strep throat Comments: I recommended to finish her course of penicillin as prescribed at the walk-in clinic. I recommended warm water and salt gargles. Drink plenty of fluids. documented in this encounter Plan of Treatment Upcoming Encounters Date Type Department Care Team (Late st Contact Info) Description 07/17/2024 10:00 AM EDT Office Visit [facility] [address] [place] [phone] Edmund Valentino MD [address] [place] [phone] Scheduled Orders Name Type Priority Associated Diagnoses Orde r Schedule TSH W/Reflex to FT4 Lab Routine Acquired hypothyroidism Expected: 04/19/2024 (Approximate), Expires: 04/19/2025 documented as of this encounter Procedures Procedure Name Priority Date/Time Associated Diagnosis Comments POCT GLUCOSE Routine 04/19/2024 9:55 AM EST Type 2 diabetes mellitus without complication, without long-term current use of insulin ([facility]) documented in this encounter Results * POCT Glucose (04/19/2024 9:55 AM EST) [facility] Glucose Blood, POC 129 60 - 200 mg/dL QC Media Lot # [id number] Lot# Expiration Date Blood Capillary blood specimen / Unknown 04/19/2024 9:55 AM EST Edmund Valentino MD POINT OF CARE TEST ENTER/EDIT OR DERABLES Final Result documented in this encounter Visit Diagnoses Diagnosis Type 2 diabetes mellitus without complication, without long-term current use of insulin ([facility])- Primary Acquired hypothyroidism Unspecified hypothyroidism Strep throat Streptococcal sore throat documented in this encounter Additional Health Concerns Assessment Noted Time PHQ-9 Depression Total Score: 0 07/29/19 24 9:26 AM EDT documented as of this encounter Care Teams Blower Room Attendant Relationship Specialty Start Date End Date Name, MD Edmund [address] [place] [address] PCP - General Family Medicine 04/04/15 documented as of this encounter
--- OUTSIDE RECORDS SUMMARY | 2024-04-19 11:31 | XMS_ITS | Encounter Summary ---
Author Organization [facility] Address [address] [place] [address] 7 [place] [address] Care Team Providers Care Technical Agronomist Name Role Phone Name, Edmund HERNANDEZ Primary Care Provider [phone] Reason for Visit * Reason Onset Date Comments Pre OP 06/30/2022 Encounter Details Date Type Department Care Team (Late st Contact Info) Description 06/30/2022 Telephone [facility] [address] [place], [place] [phone] Name, MD Edmund [address] [place] [address] Pre OP Social History Tobacco Use Types [...] repair on 09/22/[address] Cobb at [facility]. Pt will be under general and popliteal [...] 2:33 PM EDT Tc from Bill from [facility] orthopedics returning call for PRE-OP appt , please see notes also stated surgeon will place order for EKG. Please contact at [phone] * Telephone Encounter - Julee Chung - 06/30/2022 1:46 PM EDT TC from Bill from [facility] requesting a PRE-OP Location: [address] Procedure: tendon repair Date of procedure: 09/22/22 @ 11:30am Labs: yes Ekg: yes Anesthesia Type : general and popliteal block Surgeon Name: donna tomlinson documented in this encounter Plan of Treatment Upcoming Encounters Date Type Department Care Team (Late st Contact Info) Description 07/17/2024 10:00 AM EDT Office Visit [facility] [address] [place] [address] Name, MD Edmund [address] [place] [address] documented as of this encounter Visit Diagnoses Not on filedocumented in this encounter Care Teams Technical Agronomist Relationship Specialty Start Date End Date Name, MD Edmund [address] [place] [address] PCP - General Family Medicine 04/04/15 documented as of this encounter
--- OUTSIDE RECORDS SUMMARY | 2024-04-19 11:31 | XMS_ITS | Clinical Summary ---
Author Organization [facility] Address [address] [place] [address] Phone Care Team Providers Care Refinisher Name Role Phone Name, Edmund HERNANDEZ Primary Care Provider [phone] Allergies Active Allergy Reactions Criticality Noted Date Comments Iodinated Contrast Media Nausea And Vomiting,Other,Chester goetz 03/06/2008 Throat closing Encounters Date Type Department Care Team Description 02/06/2024 7:45 AM EST - 02/06/2024 8:35 AM EST Emergency [facility] Emergency [address] [place] [address] Chest pain, unspecified type (Primary Dx) Discharge Disposition: Home or Self Care from Last 3 Months Medical History Medical History Date Comments Diabetes mellitus (CMS/HCC) Disease of thyroid gland Tachycardia Asthma Arthritis Social History Tobacco Use Types Packs/Day Years Used Date Smoking Tobacco: Never Assessed Comments Unknown Sex and Gender Information Value Date Recorded Sex Assigned at Not on file Legal Sex Female 2:17 PM EST Gender Identity Not on file Sexual Orientation Not on file Obstetrics History Last Filed [...] or Tdap) 12/05/2033 12/06/2023, 03/15/2011 Pneumococcal Vaccine: 50+ Years Completed 07/29/2023, 07/24/2014 Pneumococcal Vaccine: Pediatrics (0 to 5 Years) [...] patient's age to complete this topic Meningococcal B Vacine Aged Out No lo nger eligible based on patient's age to complete [...] Signed Date: 02/06/2024 07:39 ET Workstation ID: [id number] Transcribed By: Self Edit Transcribed Date: 02/06/2024 [...] Signed Date: 02/06/2024 07:39 ET Workstation ID: [id number] Transcribed By: Self Edit Transcribed Date: 02/06/2024 07:38 ET us Bowen Juarez MD IMG XR PROCEDURES Final R esult * ECG-Annotated (02/06/2024) us Provider Onbase ECG ORDERABLES Final Result * ECG 12 lead (02/05/2024 7:37 PM EST) Only the most recent of2 resultswithin the time period is included. Pathologist [facility] Ventricular Rate ECG 50 BPM GEMUSE Atrial Rate 50 BPM GEMUSE P-R Interval 150 ms GEMUSE QRS Duration 78 ms GEMUSE Q-T Interval 478 ms GEMUSE QTc 435 ms GEMUSE P Wave [place] 52 degrees GEMUSE R [place] 44 degrees GEMUSE T [place] 55 degrees GEMUSE ECG Interpretation Sinus bradycardia Anteroseptal infarct , age undetermined Abnormal ECG When compared with ECG of 05-FEB-2024 12:31, Anteroseptal infarct is now Present Confirmed by MD Chi, Troy ([id number]) on 02/06/2024 9:54:07 PM GEMUSE 02/05/2024 7:37 PM EST 02/06/2024 9:54 PM EST Bowen Juarez MD ECG ORDERABLES Final Res ult GEMUSE * Troponin I high sensitivity (02/05/2024 7:33 PM EST) Only the most recent of2 resultswithin the time period is included. [facility] High Sensitivity Troponin I 4 <=54 ng/L LAB CHEMISTRY METHOD 02/05/2024 8:17 PM EST [facility] Blood Venous blood specimen / Unknown Venipuncture / Unknown 02/05/2024 7:33 PM EST 02/05/2024 7:49 PM EST Narrative [facility] - 02/05/2024 8:17 PM EST High levels of biotin in samples may falsely decrease hsTroponin values. ??Use caution when interpreting hsTroponin results in patients taking biotin who exhibit renal impairment (eGFR <60) or in patients taking more than 20 mg/day of biotin. Bowen Juarez MD LAB BLOOD ORDERABLES Nazanin gibson Result [facility] [address] [place] [address], * CBC auto differential (02/05/2024 3:05 PM EST) [facility] WBC 7.0 4.8 - 10.8 K/mcL LAB HEMETOLOGY METHOD 02/05/2024 3:38 PM EST [facility] RBC 4.80 3.80 - 4.80 M/mcL LAB HEMETOLOGY METHOD 02/05/2024 3:38 PM EST [facility] Hemoglobin 13.8 11.5 - 16.0 g/dL LAB HEMETOLOGY METHOD 02/05/2024 3:38 PM [facility] Hematocrit 42.9 35.0 - 47.0 % LAB HEMETOLOGY METHOD 02/05/2024 3:38 PM EST [facility] MCV 89.0 79.0 - 98.0 FL LAB HEMETOLOGY METHOD 02/05/2024 3:38 PM [facility] MCH 28.6 27.0 - 32.0 pcg LAB HEMETOLOGY METHOD 02/05/2024 3:38 PM [facility] MCHC 32.2 32.0 - 37.0 g/dL LAB HEMETOLOGY METHOD 02/05/2024 3:38 PM EST [facility] RDW 14.0 11.0 - 15.0 % LAB HEMETOLOGY METHOD 02/05/2024 3:38 PM [facility] Platelets 335 130 - 400 K/mcL LAB HEMETOLOGY METHOD 02/05/2024 3:38 PM [facility] MPV 9.7 7.0 - 11.0 FL LAB HEMETOLOGY METHOD 02/05/2024 3:38 PM [facility] NRBC 0.0 <1.0 % LAB HEMETOLOGY METHOD 02/05/2024 3:38 PM [facility] NRBC Absolute 0.00 <0.10 K/mcL LAB HEMETOLOGY METHOD 02/05/2024 3:38 PM [facility] Neutrophils Relative 52.1 % LAB HEMETOLOGY METHOD 02/05/2024 3:38 PM [facility] Lymphocytes Relative 35.1 % LAB HEMETOLOGY METHOD 02/05/2024 3:38 PM [facility] Monocytes Relative 9.8 % LAB HEMETOLOGY METHOD 02/05/2024 3:38 PM [facility] Eosinophils Relative 2.0 % LAB HEMETOLOGY METHOD 02/05/2024 3:38 PM [facility] Basophils Relative 0.9 % LAB HEMETOLOGY METHOD 02/05/2024 3:38 PM [facility] Immature Granulocytes Relative 0.1 % LAB HEMETOLOGY METHOD 02/05/2024 3:38 PM [facility] Neutrophils Absolute 3.65 1.50 - 7.00 K/mcL LAB HEMETOLOGY METHOD 02/05/2024 3:38 PM [facility] Lymphocytes Absolute 2.46 1.00 - 5.00 K/mcL LAB HEMETOLOGY METHOD 02/05/2024 3:38 PM [facility] Monocytes Absolute 0.69 0.20 - 1.00 K/mcL LAB HEMETOLOGY METHOD 02/05/2024 3:38 PM [facility] Eosinophils Absolute 0.14 0.00 - 0.50 K/mcL LAB HEMETOLOGY METHOD 02/05/2024 3:38 PM [facility] Basophils Absolute 0.06 0.00 - 0.20 K/mcL LAB HEMETOLOGY METHOD 02/05/2024 3:38 PM [facility] Immature Granulocytes Absolute 0.01 0.00 - 0.03 K/mcL LAB HEMETOLOGY METHOD 02/05/2024 3:38 PM EST [facility] Blood Venous blood specimen / Unknown Venipuncture / Unknown 02/05/2024 3:05 PM EST 02/05/2024 3:30 PM EST Bowen Juarez MD LAB BLOOD ORDERABLES Nazanin l Result [facility] [address] [place] [address], [place] [phone] * Magnesium (02/05/2024 3:05 PM EST) Magnesium 2.1 1.9 - 2.6 mg/dL LAB CHEMISTRY METHOD 02/05/2024 3:56 PM EST [facility] Blood Venous blood specimen / Unknown Venipuncture / Unknown 02/05/2024 3:05 PM EST 02/05/2024 3:30 PM EST Bowen Juarez MD LAB BLOOD ORDERABLES Nazanin l Result Performing Organization Address City/[facility]/ZIP Co de Phone Number [facility] [address] [place] [address], [place] [phone] * Lipase (02/05/2024 3:05 PM EST) Lipase 20 13 - 75 unit/L LAB CHEMISTRY METHOD 02/05/2024 3:56 PM EST [facility] Blood Venous blood specimen / Unknown Venipuncture / Unknown 02/05/2024 3:05 PM EST 02/05/2024 3:30 PM EST Bowen Juarez MD LAB BLOOD ORDERABLES Nazanin l Result [facility] [address] [place] [address], [place] [phone] * (ABNORMAL) Comprehensive metabolic panel (02/05/2024 3:05 PM EST) Sodium 144 133 - 145 mmol/L LAB CHEMISTRY METHOD 02/05/2024 3:56 PM [facility] Potassium 4.3 3.5 - 5.5 mmol/L LAB CHEMISTRY METHOD 02/05/2024 3:56 PM [facility] Chloride 110 96 - 110 mmol/L LAB CHEMISTRY METHOD 02/05/2024 3:56 PM [facility] CO2 26 21 - 32 mmol/L LAB CHEMISTRY METHOD 02/05/2024 3:56 PM [facility] Anion Gap 8 3 - 11 LAB CHEMISTRY METHOD 02/05/2024 3:56 PM [facility] Glucose 113(H) 70 - 100 mg/dL LAB CHEMISTRY METHOD 02/05/2024 3:56 PM [facility] BUN 12 5 - 25 mg/dL LAB CHEMISTRY METHOD 02/05/2024 3:56 PM [facility] Creatinine 0.76 0.50 - 1.10 mg/dL LAB CHEMISTRY METHOD 02/05/2024 3:56 PM [facility] eGFR 89 >=60 mL/min/1. 73m2 LAB CHEMISTRY METHOD 02/05/2024 3:56 PM [facility] Comment:Calculation based on the??Chronic Kidney Disease Epidemiology Collaboration (CKD-EPI) equation refit??without adjustment for race. BUN/Creatinine Ratio 15.8 LAB CHEMISTRY METHOD 02/05/2024 3:56 PM [facility] Calcium 10.2 8.5 - 10.5 mg/dL LAB CHEMISTRY METHOD 02/05/2024 3:56 PM [facility] AST (SGOT) 25 10 - 42 unit/L LAB CHEMISTRY METHOD 02/05/2024 3:56 PM [facility] ALT (SGPT) 31 10 - 60 unit/L LAB CHEMISTRY METHOD 02/05/2024 3:56 PM EST [facility] Alkaline Phosphatase 112 42 - 121 unit/L LAB CHEMISTRY METHOD 02/05/2024 3:56 PM [facility] Total Protein 7.1 6.0 - 8.0 g/dL LAB CHEMISTRY METHOD 02/05/2024 3:56 PM EST [facility] Albumin 3.8 3.2 - 5.0 g/dL LAB CHEMISTRY METHOD 02/05/2024 3:56 PM [facility] Total Bilirubin 0.4 0.0 - 1.4 mg/dL LAB CHEMISTRY METHOD 02/05/2024 3:56 PM [facility] Blood Venous blood specimen / Unknown Venipuncture / Unknown 02/05/2024 3:05 PM EST 02/05/2024 3:30 PM EST Bowen Juarez MD LAB BLOOD ORDERABLES Nazanin l Result [facility] [address] [place] [address], * DX MAMMO INCL CAD BI (11/11/2016 [...] % Breast cancer risk category Low (<15%) us Edmund Name MD SCHERER BI PROCEDURES Final Result from Last 3 Months or Most Recently Relevant to Health Maintenance Insurance [facility] MEDICARE Member Subscriber Plan / Payer (Ef fective 2020-Present) Name:Pippa Camilo I Relation to Subscriber:Self Name:Pippa Camilo I Payer ID:[id number] Group ID:[id number] Type:Not on file Address: [place] [address] [place] [address] Care Teams Refinisher Relationship Specialty Start Date End Date Name, MD Edmund [address] [place], [place] PCP - General Internal Medicine 02/07/08
--- OUTSIDE RECORDS SUMMARY | 2024-04-19 11:31 | XMS_ITS | Encounter Summary ---
Author Organization [employer] Address [address] [facility] 7t [place] [address] Care Team Providers Care Car Knocker Name Role Phone Name, Edmund HERNANDEZ Primary Care Provider [phone] Reason for Visit * Reason Comments Med Refill Encounter Details Date Type Department Care Team ([facility] st Contact Info) Description 06/24/2023 Refill [facility] [address] [place], [place] [phone] Beth Blanco, SALVATORE [address] [place] [address] Social History Tobacco Use Types Packs/Day Years [...] Description 07/17/2024 10:00 AM EDT Office Visit [facility] [address] [place] [phone] NameEdmund MD [address] [place] [phone] documented as of this encounter Visit Diagnoses Not on filedocumented in this encounter Care Teams Car Knocker Relationship Specialty Start Date End Date Edmund Valentino MD [address] [place] [address] PCP - General Family Medicine 04/04/15 documented as of this encounter
--- OUTSIDE RECORDS SUMMARY | 2024-04-19 11:31 | XMS_ITS | Encounter Summary ---
Author Organization [employer] Address [address] [facility] 7 [place] [address] Care Team Providers Care Business Systems Technician Name Role Phone Name, Edmund HERNANDEZ Primary Care Provider [phone] Reason for Visit * Reason Comments Med Refill Encounter Details Date Type Department Care Team ([facility] st Contact Info) Description 01/09/2024 Refill [facility] [address] [place], [place] [phone] Name, MD Edmund [address] [place] [address] Social History Tobacco Use Types Packs/Day Years [...] is your housing situation today? I have arno toney 05/09/[address] you [...] 10:00 AM EDT Office Visit [facility] [address] [place] [address] Name, MD Edmund [address] [place] [address] documented as of this encounter Visit Diagnoses Not on filedocumented in this encounter Additional Health Concerns Assessment Noted Time PHQ-9 Depression Total Score: 0 07/29/19 24 9:26 AM EDT documented as of this encounter Care Teams Business Systems Technician Relationship Specialty Start Date End Date Name, MD Edmund [address] [place] [phone] PCP - General Family Medicine 04/04/15 documented as of this encounter
--- OUTSIDE RECORDS SUMMARY | 2024-04-19 11:31 | XMS_ITS | Encounter Summary ---
Author Organization [employer] Address 75 [facility] 7t [place] [address] Care Team Providers Care Meter Tester Primary Name Role Phone Name, Edmund HERNANDEZ Primary Care Provider [phone] Reason for Visit * Reason Onset Date Comments mail appt slip 03/15/2024 Encounter Details Date Type Department Care Team ([facility] st Contact Info) Description 03/15/2024 Telephone [facility] ADULT DENTAL [address] [place] [address] Lillie Witt mail appt slip Social History [...] Description 07/17/2024 10:00 AM EDT Office Visit [facility] MEDICINE [address] [place] [address] Name, MD Edmund [address] [place] [address] documented as of this encounter Visit Diagnoses Not on filedocumented in this encounter Additional Health Concerns Assessment Noted Time PHQ-9 Depression Total Score: 0 07/29/19 24 9:26 AM EDT documented as of this encounter Care Teams Meter Tester Primary Relationship Specialty Start Date End Date NameEdmund MD [address] [place] [address] PCP - General Family Medicine 04/04/15 documented as of this encounter
--- OUTSIDE RECORDS SUMMARY | 2024-04-19 11:31 | XMS_ITS | Encounter Summary ---
Author Organization [employer] Address 75 [facility] 7t [place] [address] Care Team Providers Care Ordnance Truck Installation Mechanic Name Role Phone Name, Edmund HERNANDEZ Primary Care Provider [phone] Reason for Visit * Reason Comments Med Refill Encounter Details Date Type Department Care Team ([facility] st Contact Info) Description 01/19/2023 Refill [facility] CHC MED & PEDS [address] [place], [place] [phone] Name, MD Edmund [address] [place] [address] Social History Tobacco Use Types Packs/Day Years Used Date Smoking Tobacco: Never Smokeless Tobacco: Never Alcohol Use Standard Drinks/Week Comments Never 0 (1 standard drink = 0.6 oz pur e alcohol) Housing Stability Answer Date Recorded What is your housing situation today? I have aronjessenia toney 12/18/[address] you [...] 10:00 AM EDT Office Visit [facility] MEDICINE [address] [place] [address] NameEdmund MD [address] [place] [address] documented as of this encounter Visit Diagnoses Not on filedocumented in this encounter Care Teams Ordnance Truck Installation Mechanic Relationship Specialty Start Date End Date NameEdmund MD [address] [place] [address] PCP - General Family Medicine 04/04/15 documented as of this encounter
--- OUTSIDE RECORDS SUMMARY | 2024-04-19 11:31 | XMS_ITS | Encounter Summary ---
Author Organization [employer] Address 75 [facility] 7 [place] [address] Care Team Providers Care Electrical Appliance Servicer Name Role Phone Name, Edmund HERNANDEZ Primary Care Provider [phone] Reason for Visit * Reason Comments Med Refill Encounter Details Date Type Department Care Team ([facility] st Contact Info) Description 10/04/2023 Refill [facility] MEDICINE [address] [place], [place] [phone] Name, MD Edmund [address] [place] [address] Mild intermittent asthma, unspecified whether complicated Social [...] 10:00 AM EDT Office Visit [facility] MEDICINE [address] [place] [address] Name, MD Edmund [address] [place] [address] documented as of this encounter Visit Diagnoses Diagnosis Mild intermittent asthma, unspecified whether complicated documented in this encounter Additional Health Concerns Assessment Noted Time PHQ-9 Depression Total Score: 0 07/29/19 24 9:26 AM EDT documented as of this encounter Care Teams Electrical Appliance Servicer Relationship Specialty Start Date End Date Name, MD Edmund [address] [place] [address] PCP - General Family Medicine 04/04/15 documented as of this encounter
[2024-04-19 12:23] LABS: TSH reflex Free T4 2.19 uIU/mL (0.32-4.0)
[2024-04-22 16:09] LABS: TS Negative Control Passed; TS Panel A 2; TS Panel B 1; TS Positive Control Passed; TSpotTB Negative (Negative)
== END 2024-04-19 10:21 | disposition home or self-care (01) ==
LOC: HO.HHCL 10:20
PROVIDERS: Visit Provider Internal Medicine Geriatric Medicine
DX: Z11.1 Encounter for screening for respiratory tuberculosis (principal); E03.9 Hypothyroidism, unspecified
CPT/HCPCS: 36415; 84443; 86481

== ENCOUNTER 2024-05-11 14:11 | Outpatient (REF) | payer OTHER, SELFPAY ==
--- OUTSIDE RECORDS SUMMARY | 2024-05-11 15:55 | XMS_ITS | Encounter Summary ---
Author Organization [facility] [facility] Address 75 [facility] 7 [place] [address] Care Team Providers Care Fundraising Sale Representative Name Role Phone Name, Edmund HERNANDEZ Primary Care Provider [phone] Reason for Referral * Imaging (STAT) - Pending Review Specialty Diagnoses / Procedures Referred By Contac t Referred To Contact Radiology Diagnoses History of strep pharyngitis Neck pain on left side Procedures CT Soft Tissue Neck w/ Contrast Yaa Daly MD [address] [place] [address] Phone: tel: fax: [facility] [address] [place] [address] Phone: tel: fax: Referral ID Status Reason Start Date Expiration Date V isits Requested Visits Authorized [id number] Pending Review 05/11/2024 05/11/2025 1 1 Reason for Visit * Reason Comments Headache Sore Throat Encounter Details Date Type Department Care Team (Late st Contact Info) Description 05/11/2024 1:20 PM EDT Office Visit [facility] [address] [place], [place] [phone] Yaa Daly MD [address] [place], [place] [phone] History of strep pharyngitis (Primary Dx); Mild intermittent asthma, unspecified whether complicated; Neck pain on left side Social History Tobacco Use Types Packs/Day Years [...] Sign Reading Time Taken Comments Blood Pressure 143/86 05/11/2024 1:07 PM EDT Pulse 88 05/11/2024 1:07 PM EDT Temperature 36.6 ??C (97.9 ??F) 05/11/2024 1:07 PM ED T Respiratory Rate 17 05/11/2024 1:07 PM EDT Oxygen Saturation 97% 05/11/2024 1:07 PM EDT Inhaled Oxygen Concentration - - Weight 67.2 kg (148 lb 3.2 oz) 05/11/2024 1:07 P M EDT Height 152.4 cm (5') 05/11/2024 1:07 PM EDT Body Mass Index 28.94 05/11/2024 1:07 PM EDT documented in this encounter Progress Notes * Yaa Daly MD - 05/11/2024 1:20 PM EDT Subjective Patient ID: Pippa Dean is a 63 y.o. female who presents for Headache and Sore Throat. HPI Pippa is here with persistent pain in her throat on the left side that started last month. Was diagnosed with strep throat on 04/09/24. Treated with penicillin and her pain improved, but she now has pain in the left side of her neck and persistent pain in her throat. Has not had fevers but did have an episode of chills. No ear pain or discharge. She is s/p tonsillectomy in childhood. Review of Systems Constitutional: Positive for chills. Negative for fever. HENT: Positive for facial swelling, nosebleeds, rhinorrhea and sore throat. Negative for ear pain, hearing loss, sinus pressure, sinus pain and trouble swallowing. Respiratory: Positive for cough (occasional dry cough). Cardiovascular: Negative for chest pain. Neurological: Positive for headaches (left side of her head). Objective BP (!) 143/86 (BP Location: Left arm, Patient Position: Sitting, BP Cuff Size: Adult) Pulse 88 Temp 97.9 ??F (36.6 ??C) (Oral) Resp 17 Ht 5' (1.524 m) Wt 148 lb 3.2 oz (67.2 kg) SpO2 97% BMI 28.94 kg/m?? Physical Exam Constitutional: Appearance: She is ill-appearing. She is not toxic-appearing. HENT: Head: Normocephalic and atraumatic. Right Ear: Ear canal and external ear normal. There is impacted cerumen. Left Ear: Tympanic membrane, ear canal and external ear normal. Nose: Rhinorrhea present. Mouth/Throat: Mouth: Mucous membranes are moist. Pharynx: No oropharyngeal exudate or posterior oropharyngeal erythema. Eyes: General: No scleral icterus. Conjunctiva/sclera: Conjunctivae normal. Neck: Vascular: No carotid bruit. Cardiovascular: Rate and Rhythm: Normal rate and regular rhythm. Pulses: Normal pulses. Heart sounds: Normal heart sounds. Pulmonary: Effort: Pulmonary effort is normal. Breath sounds: Normal breath sounds. Musculoskeletal: Cervical back: Tenderness (left anterior triangle and superior aspect of left posterior triangle) present. Right lower leg: No edema. Left lower leg: No edema. Skin: General: Skin is warm. Capillary Refill: Capillary refill takes less than 2 seconds. Neurological: General: No focal deficit present. Mental Status: She is alert. Psychiatric: Mood and Affect: Mood normal. Behavior: Behavior normal. Assessment/Plan Diagnoses and all orders for this visit: Neck pain on left side: POCT for strep, influenza, COVID negative today. With history of recent strep pharyngitis and now pain and tenderness of left side of neck, concerned for deep neck space infection. Will check CT scan with contrast. - CT Soft Tissue Neck w/ Contrast; Future - Basic Metabolic Panel; Future History of strep pharyngitis - CT Soft Tissue Neck w/ Contrast; Future Mild intermittent asthma, unspecified whether complicated - Influenza B (ID NOW Rapid Molecular) - Influenza A (ID NOW Rapid Molecular) - POCT Rapid COVID Ag - POCT rapid strep A manually resulted - loratadine (Claritin) 10 MG tablet; Take 1 tablet (10 mg) by mouth Once per day. documented in this encounter Plan of Treatment Upcoming Encounters Date Type Department Care Team (Late st Contact Info) Description 07/17/2024 10:00 AM EDT Office Visit [facility] MEDICINE [address] [place] [address] Name, MD Edmund [address] [place] [address] Scheduled Orders Name Type Priority Associated Diagnoses Orde r Schedule CT Soft Tissue Neck w/ Contrast Imaging STAT History of strep pharyngitis Neck pain on left side Expected: 05/11/2024, Expires: 05/11/2025 Basic Metabolic Panel Lab Routine Neck pain on left side Expected: 05/11/2024 (Approximate), Expires: 05/11/2025 documented as of this encounter Procedures Procedure Name Priority Date/Time Associated Diagnosis Comments POCT INFLUENZA B (ID NOW RAPID MOLECULAR) Routine 05/11/2024 1:58 PM EDT Mild intermittent asthma, unspecified whether complicated POCT INFLUENZA A (ID NOW RAPID MOLECULAR) Routine 05/11/2024 1:58 PM EDT Mild intermittent asthma, unspecified whether complicated POCT RAPID COVID ANTIGEN Routine 05/11/2024 1:58 PM EDT Mild intermittent asthma, unspecified whether complicated POCT RAPID STREP A Routine 05/11/2024 1: 58 PM EDT Mild intermittent asthma, unspecified whether complicated documented in this encounter Results * POCT rapid strep A manually resulted (05/11/2024 1:58 PM EDT) [facility] Rapid Strep A Screen Negative Negative, None Detected Swab 05/11/2024 1:58 PM EDT Yaa Daly MD POINT OF CARE TEST ENTER/EDIT ORDERABLES Final Result * POCT Rapid COVID Ag (05/11/2024 1:58 PM EDT) [facility] Rapid COVID Ag Negative Swab 05/11/2024 1:58 PM EDT Yaa Daly MD POINT OF CARE TEST ENTER/EDIT ORDERABLES Final Result * Influenza A (ID NOW Rapid Molecular) (05/11/2024 1:58 PM EDT) [facility] Influenza A Negative Negative, Indeterminate [facility] Swab 05/11/2024 1:58 PM EDT us Yaa Daly MD POINT OF CARE TEST ENTER/EDIT ORDERABLES Final Result Performing Organization Address [facility]/ZIP Co de Phone Number [facility] [address] [place] [address] [phone] * Influenza B (ID NOW Rapid Molecular) (05/11/2024 1:58 PM EDT) Influenza B Negative Negative, Indeterminate [facility] Swab 05/11/2024 1:58 PM EDT Yaa Daly MD POINT OF CARE TEST ENTER/EDIT ORDERABLES Final Result Performing Organization Address [facility] de Phone Number [facility] [address] [place] [phone] documented in this encounter Visit Diagnoses Diagnosis History of strep pharyngitis- Primary Mild intermittent asthma, unspecified whether complicated Neck pain on left side documented in this encounter Additional Health Concerns Assessment Noted Time PHQ-9 Depression Total Score: 0 07/29/19 24 9:26 AM EDT documented as of this encounter Care Teams Fundraising Sale Representative Relationship Specialty Start Date End Date Name, MD Edmund [address] [place] [address] PCP - General Family Medicine 04/04/15 documented as of this encounter
--- OUTSIDE RECORDS SUMMARY | 2024-05-11 15:55 | XMS_ITS | Encounter Summary ---
Author Organization [employer] [facility] Address [address] [place] [address] Care Team Providers Care Clay Miller Name Role Phone Name, Edmund HERNANDEZ Primary Care Provider Unavailabl e Reason for Visit * Reason Onset Date Comments Call From Pharmacy 10/26/2012 Encounter Details Date Type Department Care Team Description 10/26/2012 Telephone Physiatry - [place] [address] [place] [address] Renetta Lockhart PA-C Call From Pharmacy Social History Tobacco Use Types Packs/Day Years Used Date Smoking Tobacco: Never Smokeless Tobacco: Never Alcohol Use Standard Drinks/Week Comments No 0 (1 standard drink = 0.6 oz pur e alcohol) Sex Assigned at Date Recorded Not on file documented as of this encounter Miscellaneous Notes * Telephone Encounter - Crissy Sutherland - 10/26/2012 11:32 AM EDT Pharmacy states they did receive a prescription yesterday for pt Sulindac and state they did noticept has allergy to Aspirin. They would like to know if this is a true allergy. Please call pharmacy back. documented in this encounter Plan of Treatment Not on file documented as of this encounter Visit Diagnoses Not on filedocumented in this encounter Care Teams Clay Miller Relationship Specialty Start Date End Date Name, MD Edmund PCP - General Internal Medicine 01/28/11 documented as of this encounter
--- OUTSIDE RECORDS SUMMARY | 2024-05-11 15:55 | XMS_ITS | Encounter Summary ---
Author Organization [facility] Address [address] [place] [address] Care Team Providers Care Hydrodynamics Teacher Name Role Phone Name, Edmund HERNANDEZ Primary Care Provider Unavailabl e Encounter Details Date Type Department Care Team Description 12/04/2014 Business Doc Medical Records [address] [place] [address] Abstract, Provider Social History Tobacco Use Types [...] on filedocumented in this encounter Care Teams Hydrodynamics Teacher Relationship Specialty Start Date End Date Name, MD Edmund PCP - General Internal Medicine 01/28/11 documented as of this encounter
--- OUTSIDE RECORDS SUMMARY | 2024-05-11 15:55 | XMS_ITS | Encounter Summary ---
Author Organization [employer] [facility] Address [address] [place] [address] Care Team Providers Care Doctor Of Chiropractic Name Role Phone Community, Pcp Primary Care Provider Unavailjose e Edmund Valentino MD Primary Care Provider Unavailjose e Encounter Details Date Type Department Care Team Description 01/07/2011 Release of Information Medical Records [address] [place] [id number] Abstract, Provider Social History Tobacco Use Types [...] on filedocumented in this encounter Care Teams Doctor Of Chiropractic Relationship Specialty Start Date End Date Community, Pcp PCP - General Internal Medicine 01/05/11 01/27/11 Edmund Valentino MD PCP - General Internal Medicine 01/28/11 documented as of this encounter
--- OUTSIDE RECORDS SUMMARY | 2024-05-11 15:55 | XMS_ITS | Encounter Summary ---
Author Organization [employer] Address 75 [facility] 7t [place] [address] Care Team Providers Care Medical Records Tech Name Role Phone Name, Edmund HERNANDEZ Primary Care Provider [phone] Reason for Visit * Reason Comments Med Refill Encounter Details Date Type Department Care Team ([facility] st Contact Info) Description 02/10/2024 Refill [facility] CHC MED & PEDS [address] [place], [place] [phone] Name, MD Edmund [address] [place] [address] Social History Tobacco Use Types Packs/Day Years [...] EDT Office Visit [facility] MEDICINE [address] [place] [address] Name, MD Edmund [address] [place] [address] documented as of this encounter Visit Diagnoses Not on filedocumented in this encounter Additional Health Concerns Assessment Noted Time PHQ-9 Depression Total Score: 0 07/29/19 24 9:26 AM EDT documented as of this encounter Care Teams Medical Records Tech Relationship Specialty Start Date End Date Name, MD Edmund [address] [place] [address] PCP - General Family Medicine 04/04/15 documented as of this encounter
--- OUTSIDE RECORDS SUMMARY | 2024-05-11 15:55 | XMS_ITS | Encounter Summary ---
Author Organization [facility] Address [address] [place] [address] Care Team Providers Care Director Of Conservation Name Role Phone Name, Edmund HERNANDEZ Primary Care Provider Unavailabl e Encounter Details Date Type Department Care Team Description 07/08/2011 Hospital Medical Records [address] [place] [address] Karsten Christian MD [address] [place] [address] Social History Tobacco Use Types Packs/Day Years [...] in this encounter Care Teams Director Of Conservation Relationship Specialty Start Date End Date Name, MD Edmund PCP - General Internal Medicine 01/28/11 documented as of this encounter
--- OUTSIDE RECORDS SUMMARY | 2024-05-11 15:55 | XMS_ITS | Encounter Summary ---
Author Organization [employer] [facility] Address [address] [place] [address] Care Team Providers Care Ends Down Checker Name Role Phone Name, Edmund HERNANDEZ Primary Care Provider Unavailabl e Encounter Details Date Type Department Care Team Description 07/12/2011 Marine Tower Operator Report Medical Records [address] [place] [address] Rehab., [facility] Social History Tobacco Use Types Packs/Day [...] on filedocumented in this encounter Care Teams Ends Down Checker Relationship Specialty Start Date End Date Name, MD Edmund PCP - General Internal Medicine 01/28/11 documented as of this encounter
--- OUTSIDE RECORDS SUMMARY | 2024-05-11 15:55 | XMS_ITS | Encounter Summary ---
Author Organization [employer] [facility] Address [address] [place] [address] Care Team Providers Care Center Aisle Cashier Name Role Phone Name, Edmund HERNANDEZ Primary Care Provider Unavailabl e Encounter Details Date Type Department Care Team Description 11/06/2014 Controlled Substance Contract with Plan Medical Records [address] [place] [address] Abstract, Provider Social History Tobacco Use Types [...] on filedocumented in this encounter Care Teams Center Aisle Cashier Relationship Specialty Start Date End Date Name, MD Edmund PCP - General Internal Medicine 01/28/11 documented as of this encounter
--- OUTSIDE RECORDS SUMMARY | 2024-05-11 15:55 | XMS_ITS | Encounter Summary ---
Author Organization [facility] Address [address] [place] [address] Care Team Providers Care Hunter Guide Name Role Phone Name, Edmund HERNANDEZ Primary Care Provider Unavailabl e Encounter Details Date Type Department Care Team Description 06/24/2011 Business Doc Medical Records [address] [place] [id number] Abstract, Provider Social History Tobacco Use Types [...] on filedocumented in this encounter Care Teams Hunter Guide Relationship Specialty Start Date End Date Name, MD Edmund PCP - General Internal Medicine 01/28/11 documented as of this encounter
--- OUTSIDE RECORDS SUMMARY | 2024-05-11 15:55 | XMS_ITS | Encounter Summary ---
Author Organization [employer] Address 75 [facility] 7 [place] [address] Care Team Providers Care Worm Picker Name Role Phone Name, Edmund HERNANDEZ Primary Care Provider [phone] Encounter Details Date Type Department Care Team (Late st Contact Info) Description 05/12/2022 Orders Only [facility] CHC MED & PEDS [address] [place], [place] [phone] Sarah Sherwood LPN Social History Tobacco Use [...] Description 07/17/2024 10:00 AM EDT Office Visit [facility] MEDICINE [address] [place] [address] Name, MD Edmund [address] [place] [address] documented as of this encounter Procedures Procedure Name Priority Date/Time Associated Diagnosis Comments VASC US LOWER EXTREMITY VENOUS DUPLEX RIGHT Routine 06/11/2022 2:15 PM EDT XR CHEST 2 VIEWS Routine 05/19/2022 5:03 PM EDT documented in this encounter Results * Vascular US lower extremity venous duplex right (06/11/2022 2:15 PM EDT) 06/11/2022 2:15 PM EDT Narrative [facility] - 06/11/2022 3:03 PM EDT ? [facility] ?[address] ?[place], [place] [address] ? Ultrasound Report ? Signed ? Patient: Pippa Camilo I ?MR#: [id number] ? : 1960 ?Acct:[id number] ? Age/Sex: 61 / F ?ADM Date: 06/11/22 ? Loc: HO.US ? Attending Dr: Uli Prakash MD ? Ordering Physician: ULI PRAKASH MD ?? Date of Service: 06/11/22 ?? Procedure(s): US venous duplex LE RT ?? Accession Number(s): [id number] ? cc: ULI PRAKASH MD ? EXAMINATION: [...] 1500 ? DD/ 1415 ? TD/TT: ? State Attorney: [place] ? Procedure Note Donotuseinterpreter, Image - 06/11/[address] [address] Ultrasound Report Signed Patient: Pippa Camilo IMR#: [id number] : 1960Acct:[id number] Age/Sex: 61 / FADM Date: 06/11/22 Loc: HO.US Attending Dr: Uli Prakash MD Ordering Physician: ULI PRAKASH MD Date of Service: 06/11/22 Procedure(s): US venous duplex LE RT Accession Number(s): [id number] cc: ULI PRAKASH MD EXAMINATION: US VENOUS [...] in OV> 06/11/22 1500 DD/ 1415 TD/TT: State Attorney: JOSE us [facility] External Provider CV VASC ULAR PROCEDURES Edited Result - Final [facility] [address] [place] [phone] * XR Chest 2 Views (05/19/2022 5:03 PM EDT) Anatomical Region Laterality Modality Chest Radiographic Suzanne ging 05/19/2022 5:03 PM EDT Narrative 05/25/2022 1:42 PM EDT ? [facility] ?[address] ?[place] [address] ?XRay Report ? Signed ? Patient: Renetta Colon,Pippa I ?MR#: [id number] ? : 1960 ?Acct:[id number] ? Age/Sex: 61 / F ?ADM Date: 05/19/22 ? Loc: HO.XRAY ? Attending Dr: Uli Prakash MD ? Ordering Physician: ULI PRAKASH MD ?? Date of Service: 05/19/22 ?? Procedure(s): XR chest 2V ?? Accession Number(s): [id number] ? cc: ULI PRAKASH MD ? EXAMINATION: [...] 1340 ? DD/ 1703 ? TD/TT: ? State Attorney: SERGIO ? Procedure Note Joanie, Image - 05/25/[address] [address] XRay Report Signed Patient: Pippa Camilo [facility]#: [id number] : 1960Acct:[id number] Age/Sex: 61 / FADM Date: 05/19/22 Loc: [place] Attending Dr: Uli Prakash MD Ordering Physician: ULI PRAKASH MD Date of Service: 05/19/22 Procedure(s): XR chest 2V Accession Number(s): [id number] cc: ULI PRAKASH MD EXAMINATION: XR CHEST [...] in OV> 05/25/22 1340 DD/ 1703 TD/TT: State Attorney: SERGIO Authorahsan Provider Result Type Result Stat [facility] External Provider IMG XR PROCEDURES Edited Result - Final documented in this encounter Visit Diagnoses Not on filedocumented in this encounter Care Teams Worm Picker Relationship Specialty Start Date End Date Name, MD Edmund [address] [place] [address] PCP - General Family Medicine 04/04/15 documented as of this encounter
--- OUTSIDE RECORDS SUMMARY | 2024-05-11 15:55 | XMS_ITS | Encounter Summary ---
Author Organization [employer] Address [address] [facility] [address] 7t [place] [address] Care Team Providers Care Cable Television Line Technician Name Role Phone Name, Edmund HERNANDEZ Primary Care Provider [phone] Encounter Details Date Type Department Care Team (Latest Contact Info) Description 05/11/2024 Travel Social History Tobacco Use Types Packs/Day Years [...] Description 07/17/2024 10:00 AM EDT Office Visit [facility] MEDICINE [address] [place] [address] NameEdmund MD [address] [place] [address] documented as of this encounter Visit Diagnoses Not on filedocumented in this encounter Additional Health Concerns Assessment Noted Time PHQ-9 Depression Total Score: 0 07/29/19 24 9:26 AM EDT documented as of this encounter Care Teams Cable Television Line Technician Relationship Specialty Start Date End Date NameEdmund MD [address] [place] [address] PCP - General Family Medicine 04/04/15 documented as of this encounter
--- OUTSIDE RECORDS SUMMARY | 2024-05-11 15:55 | XMS_ITS | Encounter Summary ---
Author Organization [facility] Address [address] [place] [address] 7 [place] [address] Care Team Providers Care Corn Crop Supervisor Name Role Phone Name, Edmund HERNANDEZ Primary Care Provider [phone] Encounter Details Date Type Department Care Team (Latest Contact Info) Description 08/26/2020 Abstract [facility] CONVERSIONS Dental, Provider, DDS Social History [...] 10:00 AM EDT Office Visit [facility] MEDICINE [address] [place] [address] NameEdmund MD [address] [place] [address] documented as of this encounter Visit Diagnoses Not on filedocumented in this encounter Care Teams Corn Crop Supervisor Relationship Specialty Start Date End Date Edmund Valentino MD [address] [place] [address] PCP - General Family Medicine 04/04/15 documented as of this encounter
--- OUTSIDE RECORDS SUMMARY | 2024-05-11 15:55 | XMS_ITS | Encounter Summary ---
Author Organization [facility] Address [address] [place] [address] Care Team Providers Care Crane Manager Name Role Phone Community, Pcp Primary Care Provider Unavailabl e Edmund Valentino MD Primary Care Provider Unavailabl e Reason for Visit * Reason Onset Date Comments Orders Call 01/06/2011 Encounter Details Date Type Department Care Team Description 01/06/2011 Telephone Adult Medicine [address] [address] Name, MD Edmund Orders Call Social History [...] she should seek alternative health care, at [facility] or at the ed for any acute [...] She has MMM [employer] HMO coverage of [place]; this coverage is only good in [place]. It will only cover the patient at ER. I spoke with patient yesterday afternoon and explained, will need to cancel this coverage in order to be able to continue care at [facility]. Should patient call this month; coverage will [...] on filedocumented in this encounter Care Teams Crane Manager Relationship Specialty Start Date End Date Community, Pcp PCP - General Internal Medicine 01/05/11 01/27/11 Name, MD Edmund PCP - General Internal Medicine 01/28/11 documented as of this encounter
--- OUTSIDE RECORDS SUMMARY | 2024-05-11 15:55 | XMS_ITS | Encounter Summary ---
Author Organization [facility] Address [address] [place] [address] Care Team Providers Care Stone Paver Name Role Phone Edmund Valentino MD Primary Care Provider Unavailabl e Encounter Details Date Type Department Care Team Description 10/23/2014 Refill Adult Medicine [address] [address] Name, MD Edmund Social History Tobacco Use [...] on filedocumented in this encounter Care Teams Stone Paver Relationship Specialty Start Date End Date Edmund Valentino MD PCP - General Internal Medicine 01/28/11 documented as of this encounter
--- OUTSIDE RECORDS SUMMARY | 2024-05-11 15:55 | XMS_ITS | Encounter Summary ---
Author Organization [employer] [facility] Address [address] [place] [address] Care Team Providers Care Car Repairman Name Role Phone Name, Edmund HERNANDEZ Primary Care Provider Unavailabl e Encounter Details Date Type Department Care Team Description 01/11/2013 Release of Information Medical Records [address] [place] [address] Abstract, Provider Social History Tobacco Use Types [...] filedocumented in this encounter Care Teams Car Repairman Relationship Specialty Start Date End Date Name, MD Edmund PCP - General Internal Medicine 01/28/11 documented as of this encounter
--- OUTSIDE RECORDS SUMMARY | 2024-05-11 15:55 | XMS_ITS | Encounter Summary ---
Author Organization [facility] Address [address] [place] [address] Care Team Providers Care Barn Hand Name Role Phone Name, Edmund HERNANDEZ Primary Care Provider Unavailabl e Encounter Details Date Type Department Care Team Description 01/01/2013 Transfer Records Medical Records [address] [place] [address] Abstract, Provider Social History Tobacco Use Types [...] on filedocumented in this encounter Care Teams Barn Hand Relationship Specialty Start Date End Date Name, MD Edmund PCP - General Internal Medicine 01/28/11 documented as of this encounter
--- OUTSIDE RECORDS SUMMARY | 2024-05-11 15:55 | XMS_ITS | Encounter Summary ---
Author Organization [facility] Address [address] [place] [address] Care Team Providers Care Velvet Weaver Name Role Phone Name, Edmund HERNANDEZ Primary Care Provider Unavailabl e Encounter Details Date Type Department Care Team Description 03/16/2011 Business Doc Medical Records [address] [place] [address] Abstract, Provider Social History Tobacco Use Types [...] on filedocumented in this encounter Care Teams Velvet Weaver Relationship Specialty Start Date End Date Name, MD Edmund PCP - General Internal Medicine 01/28/11 documented as of this encounter
--- OUTSIDE RECORDS SUMMARY | 2024-05-11 15:55 | XMS_ITS | Encounter Summary ---
Author Organization [facility] Address [address] [place] [address] Care Team Providers Care Xm1 Tank Driver Name Role Phone Name, Edmund HERNANDEZ Primary Care Provider Unavailabl e Encounter Details Date Type Department Care Team Description 11/15/2012 Business Doc Medical Records [address] [place] [address] Abstract, Provider Social History Tobacco Use Types [...] on filedocumented in this encounter Care Teams Xm1 Tank Driver Relationship Specialty Start Date End Date Name, MD Edmund PCP - General Internal Medicine 01/28/11 documented as of this encounter
--- OUTSIDE RECORDS SUMMARY | 2024-05-11 15:55 | XMS_ITS | Encounter Summary ---
Author Organization [facility] Address [address] [place] [address] Care Team Providers Care Director Public Policy Name Role Phone Name, Edmund HERNANDEZ Primary Care Provider Unavailabl e Encounter Details Date Type Department Care Team Description 03/05/2011 Corporate Administrator Report Medical Records [address] [place] [address] Sherie Guerrero NP Social History Tobacco Use [...] filedocumented in this encounter Care Teams Director Public Policy Relationship Specialty Start Date End Date Name, MD Edmund PCP - General Internal Medicine 01/28/11 documented as of this encounter
--- OUTSIDE RECORDS SUMMARY | 2024-05-11 15:56 | XMS_ITS | Encounter Summary ---
Author Organization [facility] Address [address] [place] [address] Care Team Providers Care Supervisor Electron Tube Processing Name Role Phone Name, Edmund HERNANDEZ Primary Care Provider Unavailabl e Encounter Details Date Type Department Care Team Description 08/19/2014 Account Development Executive Report Medical Records [address] [place] [address] Freddie Flores Social History Tobacco Use Types [...] on filedocumented in this encounter Care Teams Supervisor Electron Tube Processing Relationship Specialty Start Date End Date Name, MD Edmund PCP - General Internal Medicine 01/28/11 documented as of this encounter
--- OUTSIDE RECORDS SUMMARY | 2024-05-11 15:56 | XMS_ITS | Encounter Summary ---
Author Organization [facility] Address [address] [place] [address] Care Team Providers Care Electrician Crane Maintenance Name Role Phone Name, Edmund HERNANDEZ Primary Care Provider Unavailabl e Encounter Details Date Type Department Care Team Description 11/12/2016 Business Doc Medical Records [address] [place] [address] Abstract, Provider Social History Tobacco Use Types [...] on filedocumented in this encounter Care Teams Electrician Crane Maintenance Relationship Specialty Start Date End Date Name, MD Edmund PCP - General Internal Medicine 01/28/11 documented as of this encounter
--- OUTSIDE RECORDS SUMMARY | 2024-05-11 15:56 | XMS_ITS | Encounter Summary ---
Author Organization [facility] Address [address] [place] [address] 7 [place] [address] Care Team Providers Care Roofing Plant Supervisor Name Role Phone Name, Edmund HERNANDEZ Primary Care Provider [phone] Reason for Visit * Reason Onset Date Comments Pre OP 06/30/2022 Encounter Details Date Type Department Care Team (Late st Contact Info) Description 06/30/2022 Telephone [facility] MEDICINE [address] [place], [place] [phone] Name, MD Edmund [address] [place] [address] Pre OP Social History Tobacco Use Types [...] repair on 09/22/[address] Cobb at [facility]. Pt will be under general and popliteal [...] 2:33 PM EDT Tc from Bill from [facility] orthopedics returning call for PRE-OP appt , please see notes also stated surgeon will place order for EKG. Please contact at [phone] * Telephone Encounter - Julee Chung - 06/30/2022 1:46 PM EDT TC from Bill from [facility] requesting a PRE-OP Location: [address] Procedure: tendon repair Date of procedure: 09/22/22 @ 11:30am Labs: yes Ekg: yes Anesthesia Type : general and popliteal block Surgeon Name: donna tomlinson documented in this encounter Plan of Treatment Upcoming Encounters Date Type Department Care Team (Late st Contact Info) Description 07/17/2024 10:00 AM EDT Office Visit [facility] MEDICINE [address] [place] [address] Name, MD Edmund [address] [place] [address] documented as of this encounter Visit Diagnoses Not on filedocumented in this encounter Care Teams Roofing Plant Supervisor Relationship Specialty Start Date End Date Name, MD Edmund [address] [place] [address] PCP - General Family Medicine 04/04/15 documented as of this encounter
--- OUTSIDE RECORDS SUMMARY | 2024-05-11 15:56 | XMS_ITS | Encounter Summary ---
Author Organization [employer] Address [address] [facility] 7t [place] [address] Care Team Providers Care Warp Hand Name Role Phone Name, Edmund HERNANDEZ Primary Care Provider [phone] Reason for Visit * Reason Onset Date Comments Appointment Request 05/16/2023 Encounter Details Date Type Department Care Team ([facility] st Contact Info) Description 05/16/2023 Telephone [facility] [address] [place], [place] [phone] Name, MD Edmund [address] [place], [place] [phone] Appointment Request Social History Tobacco Use Types [...] to cancel and reschedule appt for 05/15 life insurance underwriter did cancel per patients request documented in this encounter Plan of Treatment Upcoming Encounters Date Type Department Care Team (Late st Contact Info) Description 07/17/2024 10:00 AM EDT Office Visit [facility] [address] [place] [address] Name, MD Edmund [address] [place] [address] documented as of this encounter Visit Diagnoses Not on filedocumented in this encounter Care Teams Warp Hand Relationship Specialty Start Date End Date Name, MD Edmund [address] [place] [address] PCP - General Family Medicine 04/04/15 documented as of this encounter
--- OUTSIDE RECORDS SUMMARY | 2024-05-11 15:56 | XMS_ITS | Encounter Summary ---
Author Organization [employer] Address [address] [facility] 7 [place] [address] Care Team Providers Care Undercar Specialist Name Role Phone Name, Edmund HERNANDEZ Primary Care Provider [phone] Reason for Visit * Reason Comments Med Refill Encounter Details Date Type Department Care Team ([facility] st Contact Info) Description 09/23/2023 Refill [facility] MEDICINE [address] [place], [place] [phone] Name, MD Edmund [address] [place] [address] Mild intermittent asthma, unspecified whether complicated Social [...] Description 07/17/2024 10:00 AM EDT Office Visit [facility] MEDICINE [address] [place] [address] Name, MD Edmund [address] [place] [address] documented as of this encounter Visit Diagnoses Diagnosis Mild intermittent asthma, unspecified whether complicated documented in this encounter Additional Health Concerns Assessment Noted Time PHQ-9 Depression Total Score: 0 07/29/19 24 9:26 AM EDT documented as of this encounter Care Teams Undercar Specialist Relationship Specialty Start Date End Date Name, MD Edmund [address] [place] [address] PCP - General Family Medicine 04/04/15 documented as of this encounter
--- OUTSIDE RECORDS SUMMARY | 2024-05-11 15:56 | XMS_ITS | Encounter Summary ---
Author Organization [employer] Address [address] [facility] 7t [place] [address] Care Team Providers Care Internet Marketing Intern Name Role Phone Name, Edmund HERNANDEZ Primary Care Provider [phone] Reason for Visit * Reason Comments Med Refill Encounter Details Date Type Department Care Team ([facility] st Contact Info) Description 05/06/2023 Refill [facility] MEDICINE [address] [place], [place] [phone] Name, MD Edmund [address] [place] [address] Social History Tobacco Use Types Packs/Day Years [...] 10:00 AM EDT Office Visit [facility] MEDICINE [address] [place] [address] NameEdmund MD [address] [place] [address] documented as of this encounter Visit Diagnoses Not on filedocumented in this encounter Care Teams Internet Marketing Intern Relationship Specialty Start Date End Date Edmund Valentino MD [address] [place] [address] PCP - General Family Medicine 04/04/15 documented as of this encounter
--- OUTSIDE RECORDS SUMMARY | 2024-05-11 15:56 | XMS_ITS | Encounter Summary ---
Author Organization [facility] Address [address] [place] [address] 7 [place] [address] Care Team Providers Care General Lot Attendant Name Role Phone Name, Edmund HERNANDEZ Primary Care Provider [phone] Encounter Details Date Type Department Care Team (Late Contact Info) Description 08/19/2022 Abstract [facility] MEDICINE [address] [place] [address] [phone] NameEdmund MD [address] [place] [address] Social History Tobacco Use Types Packs/Day Years [...] Description 07/17/2024 10:00 AM EDT Office Visit [facility] MEDICINE [address] [place] [address] [phone] Edmund Valentino MD [address] [place] [address] [phone] documented as of this encounter Visit Diagnoses Not on filedocumented in this encounter Care Teams General Lot Attendant Relationship Specialty Start Date End Date Name, MD Edmund [address] [place] [address] PCP - General Family Medicine 04/04/15 documented as of this encounter
--- OUTSIDE RECORDS SUMMARY | 2024-05-11 15:56 | XMS_ITS | Encounter Summary ---
Author [facility] Address [address] [place] [address] Care Team Providers Care Parcel Post Weigher Name Role Phone Edmund Beck MD Primary Care Provider Unavailabl e Reason for Visit * Reason Onset Date Comments Follow-up Appt Unavailable 05/02/2012 Encounter Details Date Type Department Care Team Description 05/02/2012 Telephone Adult Medicine [address] [address] Name, MD Edmund Follow-up Appt Unavailable Social [...] TO LET HER KNOW ABOUT APPT IN [place]. documented in this encounter Plan of Treatment Not on file documented as of this encounter Visit Diagnoses Not on filedocumented in this encounter Care Teams Parcel Post Weigher Relationship Specialty Start Date End Date Name, MD Edmund PCP - General Internal Medicine 01/28/11 documented as of this encounter
--- OUTSIDE RECORDS SUMMARY | 2024-05-11 15:56 | XMS_ITS | Encounter Summary ---
Author Organization [employer] Address [address] [facility] 7 [place] [address] Care Team Providers Care Street Superintendent Name Role Phone Name, Edmund HERNANDEZ Primary Care Provider [phone] Reason for Visit * Reason Comments Med Refill Encounter Details Date Type Department Care Team ([facility] st Contact Info) Description 01/20/2024 Refill [facility] [address] [place], [place] [phone] Name, MD Edmund [address] [place] [address] Social History Tobacco Use Types Packs/Day Years [...] Description 07/17/2024 10:00 AM EDT Office Visit [facility] [address] [place] [address] Name, MD Edmund [address] [place] [address] documented as of this encounter Visit Diagnoses Not on filedocumented in this encounter Additional Health Concerns Assessment Noted Time PHQ-9 Depression Total Score: 0 07/29/19 24 9:26 AM EDT documented as of this encounter Care Teams Street Superintendent Relationship Specialty Start Date End Date Name, MD Edmund [address] [place] [address] PCP - General Family Medicine 04/04/15 documented as of this encounter
--- OUTSIDE RECORDS SUMMARY | 2024-05-11 15:56 | XMS_ITS | Encounter Summary ---
Author Organization [employer] Address [address] [facility] 7t [place] [address] Care Team Providers Care Flour Inspector Name Role Phone Name, Edmund HERNANDEZ Primary Care Provider Reason for Visit * Reason Onset Date Comments mail appt slip 03/15/2024 Encounter Details Date Type Department Care Team ([facility] st Contact Info) Description 03/15/2024 Telephone [facility] [address] [place] [address] Lillie Witt mail appt slip Social History [...] Description 07/17/2024 10:00 AM EDT Office Visit [facility] MEDICINE [address] [place] [address] Name, MD Edmund [address] [place] [address] documented as of this encounter Visit Diagnoses Not on filedocumented in this encounter Additional Health Concerns Assessment Noted Time PHQ-9 Depression Total Score: 0 07/29/19 24 9:26 AM EDT documented as of this encounter Care Teams Flour Inspector Relationship Specialty Start Date End Date NameEdmund MD [address] [place] [address] PCP - General Family Medicine 04/04/15 documented as of this encounter
--- OUTSIDE RECORDS SUMMARY | 2024-05-11 15:56 | XMS_ITS | Encounter Summary ---
Author Organization [facility] [facility] Address [address] [place] [address] Care Team Providers Care Emergency Room Doctor Name Role Phone Name, Edmund HERNANDEZ Primary Care Provider Unavailabl e Encounter Details Date Type Department Care Team Description 07/19/2014 Hereditary Cancer Qu iz Results Medical Records [address] [place] [address] Abstract, Provider Social History Tobacco Use Types [...] on filedocumented in this encounter Care Teams Emergency Room Doctor Relationship Specialty Start Date End Date Name, MD Edmund PCP - General Internal Medicine 01/28/11 documented as of this encounter
--- OUTSIDE RECORDS SUMMARY | 2024-05-11 15:56 | XMS_ITS | Encounter Summary ---
Author Organization [employer] Address [address] [facility] 7 [place] [address] Care Team Providers Care Bias Machine Operator Name Role Phone Name, Edmund HERNANDEZ Primary Care Provider [phone] Reason for Visit * Reason Comments Med Refill Encounter Details Date Type Department Care Team ([facility] st Contact Info) Description 01/09/2024 Refill [facility] MEDICINE [address] [place], [place] [phone] Name, MD Edmund [address] [place] [address] Social History Tobacco Use Types Packs/Day Years [...] Description 07/17/2024 10:00 AM EDT Office Visit [facility] MEDICINE [address] [place] [address] Name, MD Edmund [address] [place] [address] documented as of this encounter Visit Diagnoses Not on filedocumented in this encounter Additional Health Concerns Assessment Noted Time PHQ-9 Depression Total Score: 0 07/29/19 24 9:26 AM EDT documented as of this encounter Care Teams Bias Machine Operator Relationship Specialty Start Date End Date Name, MD Edmund [address] [place] [address] PCP - General Family Medicine 04/04/15 documented as of this encounter
--- OUTSIDE RECORDS SUMMARY | 2024-05-11 15:56 | XMS_ITS | Encounter Summary ---
Author Organization [facility] Address [address] [facility] 7 [place] [address] Care Team Providers Care Rack Carrier Name Role Phone Name, Edmund HERNANDEZ Primary Care Provider [phone] Encounter Details Date Type Department Care Team ([facility] Contact Info) Description 09/07/2022 Abstract [facility] MEDICINE [address] [place] [address] [phone] Name, MD Edmund [address] [place] [address] Social History Tobacco Use Types Packs/Day Years [...] Upcoming Encounters Date Type Department Care Team ([facility] Contact Info) Description 07/17/2024 10:00 AM EDT Office Visit [facility] MEDICINE [address] [place] [address] [phone] Name, MD Edmund [facility] [place] [address] documented as of this encounter Procedures Procedure Name Priority Date/Time Associated Diagnosis Comments COLONOSCOPY Routine 05/06/2021 documented in this encounter Results * Colonoscopy (05/06/2021) Colonoscopy Normal Normal Narrative Rita Jimenez - 05/06/2021 Recommended 5 year follow up us Historical Provider HEALTH MAINTENANCE Final Result documented in this encounter Visit Diagnoses Not on filedocumented in this encounter Care Teams Rack Carrier Relationship Specialty Start Date End Date Name, MD Edmund [facility] [place] [address] PCP - General Family Medicine 04/04/15 documented as of this encounter
--- OUTSIDE RECORDS SUMMARY | 2024-05-11 15:56 | XMS_ITS | Clinical Summary ---
Author Organization [facility] Address [address] [place] [address] Phone Care Team Providers Care Clothing Manager Name Role Phone Name, Edmund HERNANDEZ Primary Care Provider [phone] Allergies Active Allergy Reactions Criticality Noted Date Comments Iodinated Contrast Media Nausea And Vomiting,Other,Swellin g 03/06/2008 Throat closing Medical History Medical History Date Comments Diabetes mellitus ([facility]) Disease of thyroid gland Tachycardia Asthma Arthritis [...] Procedure Name Priority Date/Time Associated Diagnosis Comments COMPREHENSIVE METABOLIC PANEL STAT 02/05/2024 3:05 PM EST DX MAMMO INCL CAD BI Routine 11/11/2016 9:09 AM EDT Mammographic microcalcification found on diagnostic imaging of breast from Last 3 Months or Most Recently Relevant to Health Maintenance Results * (ABNORMAL) Comprehensive metabolic panel (02/05/2024 3:05 PM EST) Sodium 144 133 - 145 mmol/L LAB CHEMISTRY METHOD 02/05/2024 3:56 PM [facility] Potassium 4.3 3.5 - [...] g/dL LAB CHEMISTRY METHOD 02/05/2024 3:56 PM [facility] Albumin 3.8 3.2 - 5.0 g/dL LAB CHEMISTRY METHOD 02/05/2024 3:56 PM [facility] Total Bilirubin 0.4 0.0 - 1.4 mg/dL LAB CHEMISTRY METHOD 02/05/2024 3:56 PM [facility] Blood Venous blood specimen / Unknown Venipuncture / Unknown 02/05/2024 3:05 PM EST 02/05/2024 3:30 PM EST us Bowen Juarez MD LAB BLOOD ORDERABLES Nazanin l Result [facility] [address] [place] [address], * DX MAMMO INCL CAD BI (11/11/2016 [...] Breast cancer risk category Low (<15%) Edmund Name IMG BI PROCEDURES Final Result from Last 3 Months or Most Recently Relevant to Health Maintenance Insurance [facility] MEDICARE Member Subscriber Plan / Payer (Ef fective 2020-Present) Name:Pippa Camilo I Relation to Subscriber:Self Name:Pippa Camilo I Payer ID:[id number] Group ID:[id number] Type:Not on file Address: [facility] [address] [id number] Care Teams Clothing Manager Relationship Specialty Start Date End Date Name, MD Edmund [address] [place], [place] PCP - General Internal Medicine 02/07/08
--- OUTSIDE RECORDS SUMMARY | 2024-05-11 15:56 | XMS_ITS | Encounter Summary ---
Author Organization [employer] [facility] Address [address] [facility] 7 [place] [address] Care Team Providers Care Pole Incisor Operator Name Role Phone Name, Edmund HERNANDEZ Primary Care Provider [phone] Encounter Details Date Type Department Care Team ([facility] [facility] Contact Info) Description 09/02/2022 Abstract [facility] MEDICINE [address] [place] [address] [phone] Name, MD Edmund [address] [place] [phone] Social History Tobacco Use Types Packs/Day Years [...] Upcoming Encounters Date Type Department Care Team ([facility] Contact Info) Description 07/17/2024 10:00 AM EDT Office Visit [facility] MED[facility]INE [address] [place] [address] [phone] Name, MD Edmund [address] [place] [address] documented as of this encounter Visit Diagnoses Not on filedocumented in this encounter Care Teams Pole Incisor Operator Relationship Specialty Start Date End Date Name, MD Edmund [address] [place] [address] PCP - General Family Medicine 04/04/15 documented as of this encounter
--- OUTSIDE RECORDS SUMMARY | 2024-05-11 15:56 | XMS_ITS | Encounter Summary ---
Author Organization [facility] Address [address] [place] [address] Care Team Providers Care Clinical Systems Analyst Name Role Phone Name, Edmund HERNANDEZ Primary Care Provider Unavailabl e Encounter Details Date Type Department Care Team Description 02/19/2015 [employer] Insertion Loom Fixer Report Medical Records [address] [place] [phone] Karsten Kohli MD Social History Tobacco Use [...] on filedocumented in this encounter Care Teams Clinical Systems Analyst Relationship Specialty Start Date End Date Name, MD Edmund PCP - General Internal Medicine 01/28/11 documented as of this encounter
--- OUTSIDE RECORDS SUMMARY | 2024-05-11 15:56 | XMS_ITS | Encounter Summary ---
Author Organization [facility] Address [address] [place] [address] Care Team Providers Care Shorts Sifter Name Role Phone Name, Edmund HERNANDEZ Primary Care Provider Unavailabl e Encounter Details Date Type Department Care Team Description 07/26/2014 Business Doc Medical Records [address] [place] [id number] Abstract, Provider Social History Tobacco Use Types [...] on filedocumented in this encounter Care Teams Shorts Sifter Relationship Specialty Start Date End Date Name, MD Edmund PCP - General Internal Medicine 01/28/11 documented as of this encounter
--- OUTSIDE RECORDS SUMMARY | 2024-05-11 15:56 | XMS_ITS | Encounter Summary ---
Author Organization [facility] Address [address] [place] [address] 7 [place] [address] Care Team Providers Care Lie Detector Operator Name Role Phone Name, Edmund HERNANDEZ Primary Care Provider [phone] Encounter Details Date Type Department Care Team (Late Contact Info) Description 07/30/2022 Abstract [facility] MEDICINE [address] [place] [address] [phone] NameEdmund MD [address] [place] [phone] Social History Tobacco Use Types Packs/Day Years [...] Description 07/17/2024 10:00 AM EDT Office Visit [facility] MEDICINE [address] [place] [address] [phone] Edmund Valentino MD [address] [place] [address] [phone] documented as of this encounter Visit Diagnoses Not on filedocumented in this encounter Care Teams Lie Detector Operator Relationship Specialty Start Date End Date Name, MD Edmund [address] [place] [address] PCP - General Family Medicine 04/04/15 documented as of this encounter
--- OUTSIDE RECORDS SUMMARY | 2024-05-11 15:56 | XMS_ITS | Encounter Summary ---
Author Organization [employer] Address [address] [facility] 7 [place] [address] Care Team Providers Care Peer Support Specialist Name Role Phone Name, Edmund HERNANDEZ Primary Care Provider [phone] Reason for Visit * Reason Comments Acupuncture Encounter Details Date Type Department Care Team ([facility] Contact Info) Description 04/19/2024 10:45 AM EST Office Visit [facility] MED[facility]INE [address] [place], [place] [phone] Alyssa Sandra MD [address] [place] [address] Chronic bilateral low back pain with left-sided [...] the past 12 months, has t he [place], gas, oil or water [employer] threatened to shut off services in your home? No 05/09/2023 Depression Answer Date Recorded Patient Health Questionnaire-2 Score 0 07/29/2023 Comments Unknown Sex and Gender Information Value Date Recorded Sex Assigned at Female 12/28/2021 10:29 AM EDT Legal Sex Female 10:29 AM EDT Gender Identity Female 12/28/2021 10:29 AM EDT Sexual Orientation Straight 12/28/2021 10 :29 AM EDT documented as of this encounter Progress Notes * Alyssa Sandra MD - 04/19/2024 10:45 AM EST Subjective Patient ID: Pippa Dean is a 63 y.o. female who presents for Acupuncture. Pippa is here for acupuncture treatment #7 for low back and neck pain. She is experiencing pain relief and improvement in anxiety level. Review of Systems Musculoskeletal: Negative for back pain. Objective Physical Exam Constitutional: Appearance: Normal appearance. Skin: General: Skin is warm and dry. Neurological: Mental Status: She is alert and oriented to person, place, and time. Assessment/Plan Diagnoses and all orders for this visit: Chronic bilateral low back pain with left-sided sciatica Written consent obtained for ear acupuncture. Ears prepped with alcohol pad. Five ear points needled bilaterally: Sympathetic, [place] Men, Kidney, Liver and Lung. Treatment duration: 30 minutes. Good hemostasis. Patient tolerated well. Follow up weekly for repeat acupuncture treatments as desired. documented in this encounter Plan of Treatment Upcoming Encounters Date Type Department Care Team (Late st Contact Info) Description 07/17/2024 10:00 AM EDT Office Visit [facility] MEDICINE [address] [place] [address] Name, MD Edmund [address] [place] [address] documented as of this encounter Visit Diagnoses Diagnosis Chronic bilateral low back pain with left-sided sciatica- Primary documented in this encounter Additional Health Concerns Assessment Noted Time PHQ-9 Depression Total Score: 0 07/29/19 24 9:26 AM EDT documented as of this encounter Care Teams Peer Support Specialist Relationship Specialty Start Date End Date Name, [place] [address] PCP - General Family Medicine 04/04/15 documented as of this encounter
--- OUTSIDE RECORDS SUMMARY | 2024-05-11 15:56 | XMS_ITS | Encounter Summary ---
Author Organization [employer] [facility] Address [address] [place] [address] Care Team Providers Care Sap Security Consultant Name Role Phone Name, Edmund HERNANDEZ Primary Care Provider Unavailabl e Encounter Details Date Type Department Care Team Description 07/01/2014 Cable Engineer Outside Plant Report Medical Records [address] [place] [id number] Suresh Short MD Social History Tobacco Use [...] on filedocumented in this encounter Care Teams Sap Security Consultant Relationship Specialty Start Date End Date Name, MD Edmund PCP - General Internal Medicine 01/28/11 documented as of this encounter
--- OUTSIDE RECORDS SUMMARY | 2024-05-11 15:56 | XMS_ITS | Encounter Summary ---
Author Organization [employer] Address [address] [facility] 7 [place] [address] Care Team Providers Care Painter Helper Name Role Phone Name, Edmund HERNANDEZ Primary Care Provider [phone] Reason for Visit * Reason Comments Med Refill Encounter Details Date Type Department Care Team ([facility] st Contact Info) Description 10/04/2023 Refill [facility] MEDICINE [address] [place], [place] [phone] Name, MD Edmund [address] [place] [address] Mild intermittent asthma, unspecified whether complicated Social [...] AM EDT Office Visit [facility] MEDICINE [address] [place] [address] Name, MD Edmund [address] [place] [address] documented as of this encounter Visit Diagnoses Diagnosis Mild intermittent asthma, unspecified whether complicated documented in this encounter Additional Health Concerns Assessment Noted Time PHQ-9 Depression Total Score: 0 07/29/19 24 9:26 AM EDT documented as of this encounter Care Teams Painter Helper Relationship Specialty Start Date End Date Name, MD Edmund [address] [place] [address] PCP - General Family Medicine 04/04/15 documented as of this encounter
--- OUTSIDE RECORDS SUMMARY | 2024-05-11 15:56 | XMS_ITS | Encounter Summary ---
Author Organization [facility] Address [address] [place] [address] Care Team Providers Care Vacuum Cleaner Mechanic Name Role Phone Name, Edmund HERNANDEZ Primary Care Provider Unavailabl e Encounter Details Date Type Department Care Team Description 01/21/2015 Business Doc Medical Records [address] [place] [id number] Abstract, Provider Social History Tobacco Use Types [...] on filedocumented in this encounter Care Teams Vacuum Cleaner Mechanic Relationship Specialty Start Date End Date Name, MD Edmund PCP - General Internal Medicine 01/28/11 documented as of this encounter
--- OUTSIDE RECORDS SUMMARY | 2024-05-11 15:56 | XMS_ITS | Clinical Summary ---
Author Organization [employer] Address [address] [facility] 7 [place] [address] Care Team Providers Care Import Manager Name Role Phone Name, Edmund HERNANDEZ Primary Care Provider [phone] Allergies Active Allergy Reactions Criticality Noted Date Comments Alprazolam Nausea And Vomiting,Other,Swell ing 03/06/2008 Patient describes that she had a withdrawal from this medication causing extreme anxiety and dificulty breathin. She denies an actual allergy to this medicine Aspirin Nausea And Vomiting,Swelling High 03/06/2008 Other reaction(s): OTHER LegacyRecord#[id number] Throat closing Green Dye High 11/15/2018 IV DYE Iodinated Contrast Media Nausea And Vomiting,Swelling 03/06/2008 Other reaction(s): arm swelling Other reaction(s): OTHER Throat closing Iodine High 04/04/2015 LegacyRecord#[id number] Tuberculin Ppd High 11/15/2018 Tuberculin Purified Protein Derivative 08/20/2022 Other reaction(s): ?reaction Tuberculin, Ppd 01/09/2013 LegacyRecord#[id number] Medications fluticasone (Flonase) 50 MCG/ACT nasal sprayIndications :Allergic rhinitis, unspecified seasonality, unspecified trigger Administer 2 sprays into each nostril in the morning. 48 g 022 Active amLODIPine (Norvasc) 5 MG tablet 023 Active montelukast (Singulair) 10 MG tablet Take 1 tablet by mouth at bed time. 020 Active pantoprazole (ProtoNix) 40 MG EC tablet 022 Active albuterol (2.5 MG/3ML) 0.083% nebulizer solution [...] 11 023 Active Blood Glucose Monitoring Suppl (OneTouch Verio) w/Device kit USE TO TEST BLOOD [...] A DAY 100 g 1 024 Active FreeStyle lancets USAR TO TEST BLOOD SUGAR CLYDE VEZ AL TREVOR 100 each 11 024 Active DULoxetine (Cymbalta) [address] capsule Take 1 capsule (30 mg) by mouth Once per day. 30 capsule 2 Active glucose blood (No.1 TravellerTouch Verio) test stripIndications :Type 2 diabetes mellitus without complication, without long-term current use of insulin ([facility]) USE TO TEST BLOOD SUGAR ONCE A DAY 100 strip 11 024 Active hydrocortisone 2.5 % ointmentIndicati ons:Fissure in skin Apply topically 2 times daily. 20 g 024 Active levothyroxine (Synthroid, Levoxyl) 88 MCG tablet TAKE ONE TABLET BY MOUTH EVERY MORNING BEFORE BREAKFAST 90 tablet 1 Active Dulaglutide (Trulicity) 0.75 MG/0.5ML solution auto-injectorInd ications:Type 2 diabetes mellitus without complication, without long-term current use of insulin ([facility]) Inject 0.5 mL (0.75 mg) under the skin 1 (one) time per week. INJECT 0.5 ML SUBCUTANEOUSLY EVERY WEEK. 2 mL Active OneTouch Delica Lancets 33G [facility] USE TO TEST BLOOD SUGAR EVERY DAY 100 each Active Ventolin HFA 108 (90 Base) MCG/ACT inhalerIndicatio ns:Mild intermittent asthma, unspecified whether complicated USAR 2 INHALACIONS POR LA BOCA CADA 4 O 6 HORAS REBECA SEA NECESARIO 18 g 2 025 Active metFORMIN (Glucophage) 500 MG tabletIndication s:Type 2 diabetes mellitus without complication, without long-term current use of insulin ([facility]) TAKE 1 TABLET BY ORAL ROUTE 2 TIMES EVERY DAY WITH MORNING AND EVENING MEALS 60 tablet 5 025 Active atorvastatin (Lipitor) 20 MG tabletIndication s:Type 2 diabetes mellitus without complication, without long-term current use of insulin ([facility]) Take 1 tablet (20 mg) by mouth Once per day. 90 tablet 2 025 2024 Active loratadine (Claritin) 10 MG tabletIndication s:Mild intermittent asthma, unspecified whether complicated Take 1 tablet (10 mg) by mouth Once per day. 90 tablet 1 025 Active metFORMIN (Glucophage) 500 MG tabletIndication s:Mild intermittent asthma, unspecified whether complicated TAKE 1 TABLET BY ORAL ROUTE 2 TIMES EVERY DAY WITH MORNING AND EVENING MEALS 60 tablet 5 023 2024 Discontinued(R eorder (will not trigger notification to Pharmacy)) loratadine (Claritin) 10 MG tabletIndication s:Mild intermittent asthma, unspecified whether complicated TAKE 1 TABLET BY ORAL ROUTE EVERY DAY 90 tablet 1 023 2024 Discontinued(R eorder (will not trigger notification to Pharmacy)) atorvastatin (Lipitor) 20 MG tabletIndication s:Mixed hyperlipidemia Take 1 tablet (20 mg) by mouth Once per day. 90 tablet 2 024 2024 Discontinued(R eorder (will not trigger notification to Pharmacy)) calcium citrate 333 MG tablet Take 1 tablet (333 mg) by mouth if needed each day (as needed). 90 tablet 2 024 2024 celecoxib (CeleBREX) 200 MG capsuleIndicatio ns:Chronic bilateral low back pain with left-sided sciatica Take 1 capsule (200 mg) by mouth 2 times daily. 20 capsule 025 2024 penicillin v potassium (Veetid) 500 MG tabletIndication s:Strep pharyngitis Take 1 tablet (500 mg) by mouth 2 times daily for 10 days. 20 tablet 025 2024 acetaminophen (Tylenol Extra Strength) 500 MG tablet Take 1 tablet (500 mg) by mouth every 6 (six) hours if needed for mild pain for up to 10 days. 30 tablet 025 2024 loratadine (Claritin) 10 MG tabletIndication s:Mild intermittent asthma, unspecified whether complicated Take 1 tablet (10 mg) by mouth Once per day. 90 tablet 1 025 2024 Discontinued Active Problems Problem Noted Date Diagnosed Date [...] aware that if helpful will meet with [facility]ca certified concierge Health maintenance examination 06/05/2023 Bradycardia 08/20/2022 Bradycardia [...] Constipation 12/08/2018 Overview (08/20/2022): Overview Note: Constipation #[id number]# EXT_ID: [id number] Breast cancer 11/15/2018 Overview (08/20/2022): Right DCIS in 2016, on tamoxifen, 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 Assessment & Plan (2023 3:54 PM EDT): In close care with oncology, utd on mammogram Hypertrophic condition of skin 10/26/2018 Overview (08/20/2022): Overview Note: Hypertrophic disorders of skin #[id number]# EXT_ID: [id number] 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 Overview (08/20/2022): Overview Note: Monoarthritis, not elsewhere classified, knee #[id number]# EXT_ID: [id number] Assessment & Plan (2023 4:01 PM EDT): Trial tramadol, Medication Indications, side effects and duration of therapy reviewed, pt aware to call clinic for worsening symptoms or failure to resolve Dry eye syndrome 10/04/2018 Overview (08/20/2022): Overview Note: Dry eye syndrome #[id number]# EXT_ID: [id number] Pain in knee 10/04/2018 Overview (08/20/2022): Overview Note: Pain in knee #[id number]# EXT_ID: [id number] Intraductal carcinoma in situ of breast 08/04/19 19 Overview (08/20/2022): Overview Note: Intraductal carcinoma in situ of breast #[id number]# EXT_ID: [id number] Benign mammary dysplasia 08/01/2018 Overview (08/20/2022): Overview Note: Other benign mammary dysplasias #[id number]# EXT_ID: [id number] Mild persistent asthma 07/27/2018 Overview (08/20/2022): Overview Note: Mild intermittent asthma #[id number]# EXT_ID: [id number] Assessment & Plan (06/13/2023 2:10 PM EDT): Stable mild intermittent, seasonal allergies are triggers, Anxiety disorder 07/27/2018 Overview (08/20/2022): The patient follows with Dr Taylor Overview Note: Other anxiety disorders #[id number]# EXT_ID: [id number] Assessment & Plan (2023 3:55 PM EDT): Reports stable and well managed, continue current regimen Hypertension 07/27/2018 Overview (06/13/2023): At goal today, continue amlodipine and metoprolol, consider josefa or arb given concurrent dm, defer to pcp Joint pain 11/08/2017 Diabetes mellitus, type 2 05/21/2016 Overview (08/20/2022): Overview Note: Type 2 diabetes mellitus #[id number]# EXT_ID: [id number] Allergic rhinitis 05/21/2016 Assessment & Plan (2023 [...] Overview (08/20/2022): Overview Note: Carpal tunnel syndrome #[id number]# EXT_ID: [id number] Atypical lobular hyperplasia (ALH) of breast Overview (08/20/2022): Patient followed and the [facility] and with Dr Avina. She was on Tamoxigen for 5 years Umbilical hernia 07/16/2011 Impaired fasting glucose 01/28/2011 Breast microcalcification, mammographic 01/09/20 11 Overview (08/20/2022): Biopsied in [place] 07-07-2009, fibrocystic disease. Acquired hypothyroidism 01/05/2011 Overview (08/20/2022): Overview Note: Other hypothyroidism #[id number]# EXT_ID: [id number] Assessment & Plan (06/28/2023 11:56 AM EDT): [...] 12/08/2018 12/06/2023 Overview (08/20/2022): Overview Note: Cough #[id number]# EXT_ID: [id number] Major depressive disorder, recurrent 10/26/2018 06/29/2023 Overview (04/06/2022): Overview Note: Major depressive disorder, recurrent #[id number]# EXT_ID: [id number] Lung mass 01/08/2011 2023 Overview (08/20/2022): F/u recommended somewhere between 01/09 and 07/10 Abdominal pain 03/06/2008 12/06/2023 Overview (08/20/2022): Overview Note: Dorsalgia #[id number]# EXT_ID: [id number] Cervical spine disc herniation Overview Note: Other abdominal pain #0945112# EXT_ID: [id number] Asthma 03/06/2008 12/06/2023 Assessment & Plan (07/30/2023 4:20 PM EDT): Recent exacerbation, no audible wheeze today, continue inhalers Assessment & Plan (2023 4:09 PM EDT): Continue current inhalers, seasonal allergies are trigger, monitor for increased albuterol usage Encounters Date Type Department Care Team Description 05/11/2024 1:20 PM EDT Office Visit [facility] [address] [place] [phone] Yaa Daly MD History of strep pharyngitis (Primary Dx); Mild intermittent asthma, unspecified whether complicated; Neck pain on left side 05/11/2024 Travel 04/19/2024 10:45 AM EST Office Visit [facility] [address] [place] [phone] Alyssa Sandra MD Chronic bilateral low back pain with left-sided sciatica (Primary Dx) 04/19/2024 9:45 AM EST Office Visit [facility] [address] [place] [phone] Edmund Valentino MD Type 2 diabetes mellitus without complication, without long-term current use of insulin ([facility]) (Primary Dx); Acquired hypothyroidism; Strep throat 04/09/2024 2:00 PM EST Office Visit [facility] [address] [place] [phone] Shona Blandon NP Flu-like symptoms (Primary Dx); Strep pharyngitis; Hoarse voice quality 04/02/[address] [address] Edmund Valentino MD Mild intermittent asthma, unspecified whether complicated 03/15/2024 Telephone [facility] [address] [place] [phone] Lillie Witt mail appt slip 03/13/[address] [address] Isabel Salas ANP 03/12/2024 1:20 PM EST Office Visit [facility] [address] [address] Norbert Rico MD Chronic bilateral low back pain with left-sided sciatica (Primary Dx) 03/07/[address] [address] Daisy Noriega RN Results from Last 3 Months Immunizations Name Administration [...] Mass Index 28.94 05/11/2024 1:07 PM EDT Plan of Treatment Upcoming Encounters Date Type Department Care Team (Late st Contact Info) Description 07/17/2024 10:00 AM EDT Office Visit [facility] [address] [place] [address] Name, MD Edmund [address] [place] [address] Health Maintenance Due Date Last Done Comments [...] exists Eye Exam 03/29/2025 03/29/2023 Tobacco Screening 05/11/2025 05/11/2024 Colonoscopy 05/06/2026 05/06/2021 Colorectal Cancer Screening 05/06/2026 [...] Name Priority Date/Time Associated Diagnosis Comments POCT RAPID STREP A Routine 05/11/2024 1: 58 PM EDT Mild intermittent asthma, unspecified whether complicated POCT RAPID COVID ANTIGEN Routine 05/11/2024 1:58 PM EDT Mild intermittent asthma, unspecified whether complicated POCT INFLUENZA A (ID NOW RAPID MOLECULAR) Routine 05/11/2024 1:58 PM EDT Mild intermittent asthma, unspecified whether complicated POCT INFLUENZA B (ID NOW RAPID MOLECULAR) Routine 05/11/2024 1:58 PM EDT Mild intermittent asthma, unspecified whether complicated TSH W/REFLEX TO FT4 Routine 04/19/2024 1 0:25 AM EST Acquired hypothyroidism T-SPOT(R).TB Routine 04/19/2024 10:25 AM EST Screening for tuberculosis POCT GLUCOSE Routine 04/19/2024 9:55 AM EST Type 2 diabetes mellitus without complication, without long-term current use of insulin ([facility]) POCT INFLUENZA B (ID NOW RAPID MOLECULAR) Routine 04/09/2024 2:23 PM EST Flu-like symptoms POCT INFLUENZA A (ID NOW RAPID MOLECULAR) Routine 04/09/2024 2:22 PM EST Flu-like symptoms POCT RAPID COVID ANTIGEN Routine 04/09/2024 2:17 PM EST Flu-like symptoms POCT RAPID STREP A Routine 04/09/2024 2: 17 PM EST Flu-like symptoms ALBUMIN, RANDOM URINE W/CREATININE Routine 12/06/2023 10:00 AM EDT Type 2 diabetes mellitus without complication, without long-term current use of insulin ([facility]) POCT GLYCATED HEMOGLOBIN, TOTAL Routine 12/06/2023 9:03 AM EDT Type 2 diabetes mellitus without complication, without long-term current use of insulin (CMS/HCC) BI MAMMOGRAM SCREENING TOMOSYNTHESIS BILATERAL Routine 07/05/2023 1:55 PM EDT LIPID PANEL, STANDARD Routine 06/07/2023 11:34 AM EDT Type 2 diabetes mellitus without complication, without long-term current use of insulin ([facility]) DIABETES EYE EXAM Routine 03/29/2023 COLONOSCOPY Routine 05/06/2021 PROPHYLAXIS - ADULT Routine 08/26/2020 1 2:00 AM EDT INTRAORAL - COMPLETE SERIES OF RADIOGRAPHIC IMAGES Routine 08/26/2020 12:00 AM EDT PERIODIC ORAL EVALUATION - ESTABLISHED PATIENT Routine 08/26/2020 12:00 AM EDT from Last 3 Months or Most Recently Relevant to Health Maintenance Results * Influenza B (ID NOW Rapid Molecular) (05/11/2024 1:58 PM EDT) Only the most recent of2 resultswithin the time period is included. Pathologist [facility] Influenza B Negative Negative, Indeterminate [facility] Swab 05/11/2024 1:58 PM EDT us Yaa Daly MD POINT OF CARE TEST ENTER/EDIT ORDERABLES Final Result [facility] [address] [place] [phone] * Influenza A (ID NOW Rapid Molecular) (05/11/2024 1:58 PM EDT) Only the most recent of2 resultswithin the time period is included. Pathologist [facility] Influenza A Negative Negative, Indeterminate [facility] Swab 05/11/2024 1:58 PM EDT Yaa Daly MD POINT OF CARE TEST ENTER/EDIT ORDERABLES Final Result [facility] [address] [place] [phone] * POCT Rapid COVID Ag (05/11/2024 1:58 PM EDT) Only the most recent of2 resultswithin the time period is included. [facility] Rapid COVID Ag Negative Swab 05/11/2024 1:58 PM EDT Yaa Daly MD POINT OF CARE TEST ENTER/EDIT ORDERABLES Final Result * POCT rapid strep A manually resulted (05/11/2024 1:58 PM EDT) Only the most recent of2 resultswithin the time period is included. [facility] Rapid Strep A Screen Negative Negative, None Detected Swab 05/11/2024 1:58 PM EDT Result [facility] Yaa Daly MD POINT OF CARE TEST ENTER/EDIT ORDERABLES Final Result * T-SPOT??.TB (04/19/2024 10:25 AM EST) [facility] T Spot TB Negative Negative [facility] Comment:A negative test resu lt does not exclude the possibilityof exposure to or infection with Mycobacteriumtuberculosis (M. tuberculosis). Patients with recentexposure to TB infected individuals exhibiting anegative T-SPOT.TB result should be considered forretesting within 6 weeks or if other relevant clinicalsymptoms indicate. Results from T-SPOT.TB testing mustbe used in conjunction with each individual'sepidemiological history, current medical status,and results of other diagnostic evaluations.The T-SPOT.TB test is qualitative and results arereported as positive, borderline, or negative, giventhat the test controls perform as expected. In linewith the Centers for Disease Control and Prevention's2010 recommendation to report quantitative measurementsalongside the qualitative result, the laboratoryprovides spot counts for informational purposes only.The T-SPOT.TB test should not be interpreted as aquantitative test. TS PANEL A 2 [facility] TS PANEL B 1 [facility] Negative Control Passed [facility] Positive Control Passed [facility] Comment:For additional infor micheal, please refer tohttp://education.UAV Navigation/faq/SUU826(This link is being provided for informational/educational purposes only.)THIS TEST WAS PERFORMED AT:[employer] [id number] [place] [address]LGASNKMMICHELLE HALL MD,PHD 04/19/2024 10:2 5 AM EST 04/19/2024 11:36 AM EST us Edmund Valentino MD LAB BLOOD ORDERABLES Final Resul t Performing Organization Address [facility]/ZIP Co de Phone Number [facility] [address] [place] [address] [phone] * TSH W/Reflex to FT4 (04/19/2024 10:25 AM EST) TSH reflex Free T4 2.19 0.32 - 4.0 uIU/mL [facility] Blood Venous blood specimen / Unknown 04/19/2024 10:25 AM EST 04/19/2024 11:36 AM EST us Edmund Valentino MD LAB BLOOD ORDERABLES Final Resul t Performing Organization Address [facility] Co de Phone Number [facility] [address] [place] [address] [phone] * POCT Glucose (04/19/2024 9:55 AM EST) Glucose Blood, POC 129 60 - 200 mg/dL QC Media Lot # [id number] Lot# Expiration Date 53 Blood Capillary blood specimen / Unknown 04/19/2024 9:55 AM EST us Edmund Valentino MD POINT OF CARE TEST ENTER/EDIT OR DERABLES Final Result * Albumin, Random Urine W/Creatinine (12/06/2023 10:00 AM EDT) Creatinine, Urine 123.16 mg/dL [facility] Microalbumin Urine 11.0 mg/L [facility] Microalbum Creatinine Ratio Ur 8.9 <30 ug/mg cr [facility] Comment:Albumin/Creatinine R atio Reference Ranges: Normal: < 30 ug/mg creatinine Microalbuminuria: 30 - 300 ug/mg creatinineClinical Albuminuria: > 300 ug/mg creatinine Urine (Urine, Random) 12/06/2023 10:00 AM EDT 12/06/2023 11:23 AM EDT us Edmund Valentino MD LAB URINE ORDERABLES Final Resul t [facility] [address] [place] [phone] * (ABNORMAL) POCT HGB A1C (12/06/2023 9:03 AM EDT) Hemoglobin A1C 6.6(A) 4.0 - 6.0 % QC Media Lot # [id number] Lot# Expiration Date 344,729 Blood 12/06/2023 9:03 AM EDT Result Dottie Valentino MD POINT OF CARE TEST ENTER/EDIT OR DERABLES Final Result * BI Mammogram Screening Tomosynthesis Bilateral (07/05/2023 1:55 PM EDT) Anatomical Region Laterality Modality Breast Bilateral Mammography 07/05/2023 1:55 PM EDT Narrative 08/04/2023 1:26 PM EDT ? [facility] ? [address] ?[place] [address] ? Mammography Report ? Signed ? Patient: Renetta Colon,Pippa I ?MR#: [id number] ?? [id number] ? : 1960 ?Acct:[id number] ? Age/Sex: 63 / F ?ADM Date: 07/05/23 ? Loc: HO.MAMMO ? Attending Dr: Tank Avina MD ? Ordering Physician: Tank Avina MD ?Results: 2Benig ?? n Findings ? Date of Service: 07/05/23 ?Follow Up: 1 Year From Orig ?? inal Mammogram ? Procedure(s): MM tomosynthesis screening BI ?? Accession Number(s): [id number] ? cc: Tank Avina MD; Name,Edmund HERNANDEZ ? EXAMINATION: ?? MM SCREENING DIGITAL BREAST [...] 1323 ? DD/ 1355 ? TD/TT: ? [employer]: ? Procedure Note Joanie, Image - 08/04/2023 [facility] [address] [place] [address] Mammography Report Signed Patient: Pippa Camilo IMR#: [id number] : 1960Acct:[id number] Age/Sex: 63 / FADM Date: 07/05/23 Loc: HO.MAMMO Attending Dr: Tank Avina MD Ordering Physician: Tank Avina MDResults: 2Benig n Findings Date of Service: 07/05/23Follow Up: 1 Year From Orig inal Mammogram Procedure(s): MM tomosynthesis screening BI Accession Number(s): [id number] cc: Tank Avina MD; Name,Edmund HERNANDEZ EXAMINATION: [...] in OV> 08/04/23 1323 DD/ 1355 TD/TT: [employer]: [facility] External Provider IMG BI PROCEDURES Final Result * (ABNORMAL) Lipid Panel, Standard (06/07/2023 11:34 AM EDT) Triglycerides 125 <150 mg/dL [facility] Comment:Desirable Triglyceri de: less than 150 mg/dLBorderline High Triglyceride 150-199 mg/dLHigh Triglyceride: 200-499 mg/dLVery High Triglyceride: greater than or equal to 5OO mg/dL Cholesterol 225(H) <200 mg/dL [facility] Comment:Desirable Cholestero l: less than 200 mg/dLBorderline High Cholesterol: 200-239 mg/dLHigh Cholesterol: greater than 239 mg/dL LDL Cholesterol Calculated 141(H) <100 mg/dL [facility] Comment:Desirable LDL: less than 100 mg/dLNear Optimal/Above Optimal LDL: 110- 129 mg/dLBorderline High LDL: 130-159 mg/dLHigh LDL: 160-189 mg/dLVery High LDL: greater than or equal to 190 mg/dL HDL Cholesterol 59 >40 mg/dL [facility] Comment:Desirable HDL: great er than 40 mg/dL Note: This HDL assay may give artificially low results in patients with liver disease. Blood Venous blood specimen / Unknown 06/07/2023 11:34 AM EDT 06/07/2023 1:12 PM EDT us Beth Blanco ROLL UP MACHINE OPERATOR LAB BLOOD ORDERABLES Final Resul t [facility] [address] [place] [address] [phone] * Diabetes Eye Exam (03/29/2023) Eye Exam Normal Normal 03/29/2023 us Edmund Name HEALTH MAINTENANCE Final Result * Colonoscopy (05/06/2021) Colonoscopy Normal Normal Narrative BarbaraRita lockwood - 05/06/2021 Recommended 5 year follow up Historical Provider HEALTH MAINTENANCE Final Result from Last 3 Months or Most Recently Relevant to Health Maintenance Insurance [facility] - [facility] Care Teams Import Manager Relationship Specialty Start Date End Date Name, MD Edmund [address] [place] [phone] PCP - General Family Medicine 04/04/15
--- OUTSIDE RECORDS SUMMARY | 2024-05-11 15:56 | XMS_ITS | Encounter Summary ---
Author Organization [facility] Address [address] [place] [address] Care Team Providers Care Polymer Tester Name Role Phone Name, Edmund HERNANDEZ Primary Care Provider Unavailabl e Encounter Details Date Type Department Care Team Description 05/08/2014 Painter Plate Report Medical Records [address] [place] [address] Karsten Kohli MD Social History Tobacco Use [...] on filedocumented in this encounter Care Teams Polymer Tester Relationship Specialty Start Date End Date Name, MD Edmund PCP - General Internal Medicine 01/28/11 documented as of this encounter
--- OUTSIDE RECORDS SUMMARY | 2024-05-11 15:56 | XMS_ITS | Encounter Summary ---
Author Organization [facility] Address [address] [place] [address] Care Team Providers Care Ed Transporter Name Role Phone Name, Edmund HERNANDEZ Primary Care Provider Unavailabl e Encounter Details Date Type Department Care Team Description 11/21/2013 Business Doc Medical Records [address] [place] [id number] Abstract, Provider Social History Tobacco Use Types [...] on filedocumented in this encounter Care Teams Ed Transporter Relationship Specialty Start Date End Date Name, MD Edmund PCP - General Internal Medicine 01/28/11 documented as of this encounter
--- OUTSIDE RECORDS SUMMARY | 2024-05-11 15:56 | XMS_ITS | Encounter Summary ---
Author Organization [employer] Address 75 [facility] 7 [place] [address] Care Team Providers Care Concrete Stone Fabricating Supervisor Name Role Phone Name, Edmund HERNANDEZ Primary Care Provider [phone] Reason for Visit * Reason Comments Med Refill Encounter Details Date Type Department Care Team ([facility] st Contact Info) Description 01/27/2024 Refill [facility] MEDICINE [address] [place], [place] [phone] Beth Blanco NP [address] [place] [address] Social History Tobacco Use Types Packs/Day Years [...] 07/17/2024 10:00 AM EDT Office Visit [facility] MEDICINE [address] [place] [address] Name, MD Edmund [address] [place] [address] documented as of this encounter Visit Diagnoses Not on filedocumented in this encounter Additional Health Concerns Assessment Noted Time PHQ-9 Depression Total Score: 0 07/29/19 24 9:26 AM EDT documented as of this encounter Care Teams Concrete Stone Fabricating Supervisor Relationship Specialty Start Date End Date Name, MD Edmund [address] [place] [address] PCP - General Family Medicine 04/04/15 documented as of this encounter
--- OUTSIDE RECORDS SUMMARY | 2024-05-11 15:56 | XMS_ITS | Encounter Summary ---
Author Organization [employer] [facility] Address [address] [place] [address] Care Team Providers Care Hourly Manager Name Role Phone Name, Edmund HERNANDEZ Primary Care Provider Unavailabl e Encounter Details Date Type Department Care Team Description 10/14/2011 Electric Track Switch Maintainer Report Medical Records [address] [place] [address] Karsten Beach PA-C Social History Tobacco Use [...] on filedocumented in this encounter Care Teams Hourly Manager Relationship Specialty Start Date End Date Name, MD Edmund PCP - General Internal Medicine 01/28/11 documented as of this encounter
--- OUTSIDE RECORDS SUMMARY | 2024-05-11 15:56 | XMS_ITS | Encounter Summary ---
Author Organization [employer] Address 75 [facility] 7t [place] [address] Care Team Providers Care Sexual Health Physician Name Role Phone Name, Edmund HERNNADEZ Primary Care Provider [phone] Reason for Visit * Reason Comments Med Refill Encounter Details Date Type Department Care Team ([facility] st Contact Info) Description 01/19/2023 Refill [facility] MED & PEDS [address] [place], [place] [phone] Name, MD Edmund [address] [place] [address] Social History Tobacco Use Types Packs/Day Years [...] AM EDT Office Visit [facility] MEDICINE [address] [place] [address] NameEdmund MD [address] [place] [address] documented as of this encounter Visit Diagnoses Not on filedocumented in this encounter Care Teams Sexual Health Physician Relationship Specialty Start Date End Date NameEdmund MD [address] [place] [address] PCP - General Family Medicine 04/04/15 documented as of this encounter
--- OUTSIDE RECORDS SUMMARY | 2024-05-11 15:56 | XMS_ITS | Encounter Summary ---
Author Organization [employer] [facility] Address [address] [place] [address] Care Team Providers Care Operational Assistant Name Role Phone Name, Edmund HERNANDEZ Primary Care Provider Unavailabl e Encounter Details Date Type Department Care Team Description 06/02/2015 Release of Information Medical Records [address] [place] [address] Abstract, Provider Social History Tobacco Use Types [...] on filedocumented in this encounter Care Teams Operational Assistant Relationship Specialty Start Date End Date Name, MD Edmund PCP - General Internal Medicine 01/28/11 documented as of this encounter
--- OUTSIDE RECORDS SUMMARY | 2024-05-11 15:56 | XMS_ITS | Encounter Summary ---
Author Organization [employer] Address 75 [facility] 7t [place] [address] Care Team Providers Care Director Of Physical Security Name Role Phone Name, Edmund HERNANDEZ Primary Care Provider [phone] Reason for Visit * Reason Comments Med Refill Encounter Details Date Type Department Care Team ([facility] st Contact Info) Description 12/30/[address] [facility] CHC MED & PEDS [address] [place], [place] [phone] Name, MD Edmund [address] [place] [address] Social History Tobacco Use Types Packs/Day Years [...] [facility] MEDICINE [address] [place] [address] NameEdmund MD [address] [place] [address] documented as of this encounter Visit Diagnoses Not on filedocumented in this encounter Care Teams Director Of Physical Security Relationship Specialty Start Date End Date NameEdmund MD [address] [place] [address] PCP - General Family Medicine 04/04/15 documented as of this encounter
--- OUTSIDE RECORDS SUMMARY | 2024-05-11 15:56 | XMS_ITS | Encounter Summary ---
Author Organization [facility] Address [address] [place] [address] Care Team Providers Care Mental Health Director Name Role Phone NameEdmund MD Primary Care Provider Unavailabl e Reason for Visit * Reason Onset Date Comments Home Lending Officer Feedback 04/27/2014 [facility] Encounter Details Date Type Department Care Team Description 04/27/2014 Telephone Adult [address] [address] Name, MD Edmund Home Lending Officer Feedback ([facility]) Social History Tobacco Use [...] to fax over labs and Notes to [phone] DX Epistaxis documented in this encounter Plan of Treatment Not on file documented as of this encounter Visit Diagnoses Not on filedocumented in this encounter Care Teams Mental Health Director Relationship Specialty Start Date End Date Edmund Valentino MD PCP - General Internal Medicine 01/28/11 documented as of this encounter
--- OUTSIDE RECORDS SUMMARY | 2024-05-11 15:56 | XMS_ITS | Encounter Summary ---
Author Organization [facility] Address [address] [place] [address] Care Team Providers Care Riding Silks Custodian Name Role Phone Name, Edmund HERNANDEZ Primary Care Provider Unavailabl e Encounter Details Date Type Department Care Team Description 10/12/2011 Business Doc Medical Records [address] [place] [address] Abstract, Provider Social History Tobacco Use Types [...] on filedocumented in this encounter Care Teams Riding Silks Custodian Relationship Specialty Start Date End Date Name, MD Edmund PCP - General Internal Medicine 01/28/11 documented as of this encounter
--- OUTSIDE RECORDS SUMMARY | 2024-05-11 15:56 | XMS_ITS | Encounter Summary ---
Author Organization [employer] [facility] Address [address] [place] [address] Care Team Providers Care Appliance Repairer Name Role Phone Name, Edmund HERNANDEZ Primary Care Provider Unavailabl e Encounter Details Date Type Department Care Team Description 08/06/2013 Hand Profiler Report Medical Records [address] [place] [address] Karsten Kohli MD Social History Tobacco Use [...] on filedocumented in this encounter Care Teams Appliance Repairer Relationship Specialty Start Date End Date Name, MD Edmund PCP - General Internal Medicine 01/28/11 documented as of this encounter
--- OUTSIDE RECORDS SUMMARY | 2024-05-11 15:56 | XMS_ITS | Encounter Summary ---
Author Organization [facility] Address [address] [place] [address] Care Team Providers Care Automatic Equipment Technician Name Role Phone Name, Edmund HERNANDEZ Primary Care Provider Unavailabl e Encounter Details Date Type Department Care Team Description 11/04/2015 Business Doc Medical Records [address] [place] [address] Abstract, Provider Social History Tobacco Use Types [...] on filedocumented in this encounter Care Teams Automatic Equipment Technician Relationship Specialty Start Date End Date Name, MD Edmund PCP - General Internal Medicine 01/28/11 documented as of this encounter
--- OUTSIDE RECORDS SUMMARY | 2024-05-11 15:56 | XMS_ITS | Encounter Summary ---
Author Organization [employer] [facility] Address [address] [place] [address] Care Team Providers Care Latex Thread Machine Operator Name Role Phone Name, Edmund HERNANDEZ Primary Care Provider Unavailabl e Encounter Details Date Type Department Care Team Description 03/22/2013 Hospital Medical Records [address] [place] [address] Monica Figueroa Social History Tobacco Use Types Packs/Day Years [...] on filedocumented in this encounter Care Teams Latex Thread Machine Operator Relationship Specialty Start Date End Date Name, MD Edmund PCP - General Internal Medicine 01/28/11 documented as of this encounter
--- OUTSIDE RECORDS SUMMARY | 2024-05-11 15:56 | XMS_ITS | Encounter Summary ---
Author Organization [employer] Address 75 [facility] 7t [place] [address] Care Team Providers Care Lockstitch Front Edge Tape Sewer Name Role Phone Name, Edmund HERNANDEZ Primary Care Provider [phone] Reason for Visit * Reason Comments Med Refill Encounter Details Date Type Department Care Team ([facility] st Contact Info) Description 06/24/2023 Refill [facility] MEDICINE [address] [place], [place] [phone] Beth Blanco, SALVATORE [address] [place] [address] Social History Tobacco Use Types Packs/Day Years [...] Description 07/17/2024 10:00 AM EDT Office Visit [facility] MEDICINE [address] [place] [address] NameEdmund MD [address] [place] [address] documented as of this encounter Visit Diagnoses Not on filedocumented in this encounter Care Teams Lockstitch Front Edge Tape Sewer Relationship Specialty Start Date End Date Edmund Valentino MD [address] [place] [address] PCP - General Family Medicine 04/04/15 documented as of this encounter
--- OUTSIDE RECORDS SUMMARY | 2024-05-11 15:56 | XMS_ITS | Encounter Summary ---
Author Organization [employer] [facility] Address [address] [place] [address] Care Team Providers Care Detailer Pharmaceuticals Name Role Phone Edmund Valentino MD Primary Care Provider Unavailabl e Encounter Details Date Type Department Care Team Description 08/30/2013 Orders Only Adult Medicine [address] [address] Name, MD Edmund Social History Tobacco Use [...] on filedocumented in this encounter Care Teams Detailer Pharmaceuticals Relationship Specialty Start Date End Date Edmund Valentino MD PCP - General Internal Medicine 01/28/11 documented as of this encounter
--- OUTSIDE RECORDS SUMMARY | 2024-05-11 15:56 | XMS_ITS | Encounter Summary ---
Author Organization [employer] Address 75 [facility] 7 [place] [address] Care Team Providers Care Safety Consultant Name Role Phone Name, Edmund HERNANDEZ Primary Care Provider [phone] Reason for Visit * Reason Comments Med Refill Encounter Details Date Type Department Care Team ([facility] st Contact Info) Description 01/06/2024 Refill [facility] MEDICINE [address] [place], [place] [phone] Beth Blanco NP [address] [place] [address] Social History Tobacco Use Types Packs/Day Years [...] 10:00 AM EDT Office Visit [facility] MEDICINE [address] [place] [address] Name, MD Edmund [address] [place] [address] documented as of this encounter Visit Diagnoses Not on filedocumented in this encounter Additional Health Concerns Assessment Noted Time PHQ-9 Depression Total Score: 0 07/29/19 24 9:26 AM EDT documented as of this encounter Care Teams Safety Consultant Relationship Specialty Start Date End Date Name, MD Edmund [address] [place] [address] PCP - General Family Medicine 04/04/15 documented as of this encounter
--- OUTSIDE RECORDS SUMMARY | 2024-05-11 15:56 | XMS_ITS | Encounter Summary ---
Author Organization [employer] Address 75 [facility] 7 [place] [address] Care Team Providers Care Healthcare Facility Administrator Name Role Phone Name, Edmund HERNANDEZ Primary Care Provider [phone] Reason for Visit * Reason Comments Diabetes Encounter Details Date Type Department Care Team ([facility] st Contact Info) Description 04/19/2024 9:45 AM EST Office Visit [facility] MEDICINE [address] [place] [address] [phone] Name, MD Edmund [address] [place] [address] Type 2 diabetes mellitus without complication, without long-term current use of insulin ([facility]) (Primary Dx); Acquired hypothyroidism; Strep [...] weekly. Blood sugar is normal today and ldoreiwvppB8j is 6.6. Review of Systems Constitutional: Negative [...] 0.7 02/10/2024 Albumin, Random Urine W/Creatinine Order: [id number] Status: Final result Visible to patient: Yes [...] 5 MG tablet Blood Glucose Monitoring Suppl (ZzishTouch Verio) w/Device kit USE TO TEST BLOOD SUGAR EVERY DAY 1 kit 0 calcium citrate 333 MG tablet Take 1 tablet (333 mg) by mouth if needed each day (as needed). 90 tablet 2 Diclofenac Sodium 1 % gel APPLY 1 TO 3 GRAMS TO AFFECTED AREA THREE TIMES A DAY TO FOUR TIMES A QPJ240 g 1 FreeStyle lancets USAR TO TEST [...] complication, without long-term current use of insulin ([facility]) Comments: Continue current dose of [...] Description 07/17/2024 10:00 AM EDT Office Visit [facility] MEDICINE [address] [place] [address] Chelsy, MD Edmund [address] [place] [address] documented as of this encounter Procedures Procedure Name Priority Date/Time Associated Diagnosis Comments TSH W/REFLEX TO FT4 Routine 04/19/2024 10:25 AM EST Acquired hypothyroidism POCT GLUCOSE Routine 04/19/2024 9:55 AM EST Type 2 diabetes mellitus without complication, without long-term current use of insulin ([facility]) documented in this encounter Results * TSH W/Reflex to FT4 (04/19/2024 10:25 AM EST) TSH reflex Free T4 2.19 0.32 - 4.0 uIU/mL [facility] Blood Venous blood specimen / Unknown 04/19/2024 10:25 AM EST 04/19/2024 11:36 AM EST us Edmund Valentino MD LAB BLOOD ORDERABLES Final Resul t [facility] [address] [place] [address] [phone] * POCT Glucose (04/19/2024 9:55 AM [...] complication, without long-term current use of insulin ([facility])- Primary Acquired hypothyroidism Unspecified hypothyroidism Strep throat Streptococcal sore throat documented in this encounter Additional Health Concerns Assessment Noted Time PHQ-9 Depression Total Score: 0 07/29/19 24 9:26 AM EDT documented as of this encounter Care Teams Healthcare Facility Administrator Relationship Specialty Start Date End Date Name, MD Edmund [address] [place] [address] PCP - General Family Medicine 04/04/15 documented as of this encounter
--- OUTSIDE RECORDS SUMMARY | 2024-05-11 15:56 | XMS_ITS | Encounter Summary ---
Author Organization [employer] [facility] Address [address] [place] [address] Care Team Providers Care Gum Maker Name Role Phone Name, Edmund HERNANDEZ Primary Care Provider Unavailabl e Encounter Details Date Type Department Care Team Description 01/31/2012 Dentures Lab Technician Report Medical Records [address] [place] [address] Ni Rolle Social History Tobacco Use Types [...] on filedocumented in this encounter Care Teams Gum Maker Relationship Specialty Start Date End Date Name, MD Edmund PCP - General Internal Medicine 01/28/11 documented as of this encounter
[2024-05-11 16:49] LABS: Anion Gap 12 (12-20); Blood Urea Nitrogen 17 mg/dL (9-16); Calcium 10.4 mg/dL (8.4-10.2); Carbon Dioxide 30 mmol/L (22-29); Chloride 104 mmol/L (96-108); Estimated Glomerular Filt Rate > 60; Glucose Random 110 mg/dL (60-115); Potassium 3.7 mmol/L (3.3-5.1); Sodium 142 mmol/L (135-145)
[2024-05-15 00:44] LABS: TS Negative Control Passed; TS Panel A 0; TS Panel B 0; TS Positive Control Passed; TSpotTB Negative (Negative)
== END 2024-05-11 14:12 | disposition home or self-care (01) ==
LOC: HO.HHCL 14:11
PROVIDERS: Internal Medicine Geriatric Medicine; Visit Provider Internal Medicine
DX: Z11.1 Encounter for screening for respiratory tuberculosis (principal); M54.2 Cervicalgia
CPT/HCPCS: 36415; 80048; 86481

== ENCOUNTER 2024-05-17 11:56 | Outpatient (REF) | payer OTHER, SELFPAY ==
--- NOTE | ~2024-05-17 | XR_ITS ---
EXAMINATION: XR CHEST 2 VIEWS HISTORY: persistent cough COMPARISON: Comparison is made with the prior examination dated 03/23/2023. FINDINGS: PA and lateral views of the chest are submitted. The lungs are expanded and clear. There is no pleural effusion, pneumothorax, or pulmonary vascular congestion. The heart is normal in size. The bones are intact. XR/XR chest 2V IMPRESSION: No acute cardiopulmonary abnormality. Electronically signed by: Jeancarlos Calderon MD 05/17/2024 12:24 PM EDT
--- OUTSIDE RECORDS SUMMARY | 2024-05-17 14:19 | XMS_ITS | Encounter Summary ---
Author Organization [facility] Address [address] [place] [address] Care Team Providers Care Ad Copy Writer Name Role Phone Name, Edmund HERNANDEZ Primary Care Provider Unavailabl e Encounter Details Date Type Department Care Team Description 11/15/2012 Business Doc Medical Records [address] [place] [address] Abstract, Provider Social History Tobacco Use Types [...] on filedocumented in this encounter Care Teams Ad Copy Writer Relationship Specialty Start Date End Date Name, MD Edmund PCP - General Internal Medicine 01/28/11 documented as of this encounter
--- OUTSIDE RECORDS SUMMARY | 2024-05-17 14:19 | XMS_ITS | Encounter Summary ---
Author Organization [facility] Address [address] [place] [address] Care Team Providers Care Ladle Watcher Name Role Phone Name, Edmund HERNANDEZ Primary Care Provider Unavailabl e Encounter Details Date Type Department Care Team Description 01/01/2013 Transfer Records Medical Records [address] [place] [address] Abstract, Provider Social History Tobacco Use Types [...] on filedocumented in this encounter Care Teams Ladle Watcher Relationship Specialty Start Date End Date Name, MD Edmund PCP - General Internal Medicine 01/28/11 documented as of this encounter
--- OUTSIDE RECORDS SUMMARY | 2024-05-17 14:19 | XMS_ITS | Encounter Summary ---
Author Organization [facility] [facility] Address [address] [place] [address] Care Team Providers Care Structural Worker Name Role Phone Name, Edmund HERNANDEZ Primary Care Provider Unavailabl e Encounter Details Date Type Department Care Team Description 01/02/2013 [facility] Induction Report Medical Records [address] [place] [address] Shirley Mckeon Social History Tobacco Use Types [...] on filedocumented in this encounter Care Teams Structural Worker Relationship Specialty Start Date End Date Name, MD Edmund PCP - General Internal Medicine 01/28/11 documented as of this encounter
--- OUTSIDE RECORDS SUMMARY | 2024-05-17 14:19 | XMS_ITS | Encounter Summary ---
Author Organization [facility] [facility] Address [address] [place] [address] Care Team Providers Care Passenger Service Manager Name Role Phone Name, Edmund HERNANDEZ Primary Care Provider Unavailabl e Reason for Visit * Reason Onset Date Comments Call From Pharmacy 10/26/2012 Encounter Details Date Type Department Care Team Description 10/26/2012 Telephone Physiatry - [facility] [address] [place] [address] Renetta Lcokhart PA-C Call From Pharmacy Social History Tobacco [...] on filedocumented in this encounter Care Teams Passenger Service Manager Relationship Specialty Start Date End Date Name, MD Edmund PCP - General Internal Medicine 01/28/11 documented as of this encounter
--- OUTSIDE RECORDS SUMMARY | 2024-05-17 14:19 | XMS_ITS | Encounter Summary ---
Author Organization [employer] [facility] Address [address] [place] [address] Care Team Providers Care Creative Writer Name Role Phone Community, Pcp Primary Care Provider Unavailjose e Edmund Valentino MD Primary Care Provider Unavailjose e Encounter Details Date Type Department Care Team Description 01/07/2011 Release of Information Medical Records [address] [place] [address] Abstract, Provider Social History Tobacco Use Types [...] on filedocumented in this encounter Care Teams Creative Writer Relationship Specialty Start Date End Date Community, Pcp PCP - General Internal Medicine 01/05/11 01/27/11 Edmund Valentino MD PCP - General Internal Medicine 01/28/11 documented as of this encounter
--- OUTSIDE RECORDS SUMMARY | 2024-05-17 14:19 | XMS_ITS | Encounter Summary ---
Author Organization [facility] [facility] Address [address] [place] [address] Care Team Providers Care Conference And Event Organiser Name Role Phone Name, Edmund HERNANDEZ Primary Care Provider Unavailabl e Encounter Details Date Type Department Care Team Description 01/11/2013 Release of Information Medical Records [address] [place] [address] Abstract, Provider Social History Tobacco Use Types [...] on filedocumented in this encounter Care Teams Conference And Event Organiser Relationship Specialty Start Date End Date Name, MD Edmund PCP - General Internal Medicine 01/28/11 documented as of this encounter
--- OUTSIDE RECORDS SUMMARY | 2024-05-17 14:19 | XMS_ITS | Encounter Summary ---
Author Organization [employer] [facility] Address [address] [place] [address] Care Team Providers Care Jive Developer Name Role Phone Name, Edmund HERNANDEZ Primary Care Provider Unavailabl e Encounter Details Date Type Department Care Team Description 04/01/2011 International Trade Compliance Manager Report Medical Records [address] [place] [address] Carlos Enrique Leggett MD, MD Social History [...] on filedocumented in this encounter Care Teams Jive Developer Relationship Specialty Start Date End Date Name, MD Edmund PCP - General Internal Medicine 01/28/11 documented as of this encounter
--- OUTSIDE RECORDS SUMMARY | 2024-05-17 14:19 | XMS_ITS | Encounter Summary ---
Author Organization [facility] Address [address] [place] [address] Care Team Providers Care Stave Saw Operator Name Role Phone Edmund Valentino MD Primary Care Provider Unavailabl e Encounter Details Date Type Department Care Team Description 10/23/2014 Refill Adult Medicine [address] [address] Name, MD Edmund Social History Tobacco Use [...] on filedocumented in this encounter Care Teams Stave Saw Operator Relationship Specialty Start Date End Date Edmund Valentino MD PCP - General Internal Medicine 01/28/11 documented as of this encounter
--- OUTSIDE RECORDS SUMMARY | 2024-05-17 14:19 | XMS_ITS | Encounter Summary ---
Author Organization [employer] [facility] Address [address] [place] [address] Care Team Providers Care Shank Tapper Name Role Phone Name, Edmund HERNANDEZ Primary Care Provider Unavailabl e Encounter Details Date Type Department Care Team Description 03/16/2011 Business Doc Medical Records [address] [place] [address] Abstract, Provider Social History Tobacco Use Types [...] on filedocumented in this encounter Care Teams Shank Tapper Relationship Specialty Start Date End Date Name, MD Edmund PCP - General Internal Medicine 01/28/11 documented as of this encounter
--- OUTSIDE RECORDS SUMMARY | 2024-05-17 14:19 | XMS_ITS | Encounter Summary ---
Author Organization [facility] Address [address] [place] [address] Care Team Providers Care Weathercaster Name Role Phone Community, Pcp Primary Care Provider Unavailabl e Edmund Valentino MD Primary Care Provider Unavailabl e Reason for Visit * Reason Onset Date Comments Orders Call 01/06/2011 Encounter Details Date Type Department Care Team Description 01/06/2011 Telephone Adult Medicine [address] [address] Name, MD Edmund Orders Call Social History [...] seek alternative health care, at [facility] or at the ed for any acute [...] She has MMM [employer] HMO coverage of [place]; this coverage is only good in [place]. It will only cover the patient at ER. I spoke with patient yesterday afternoon and explained, will need to cancel this coverage in order to be able to continue care at [facility]. Should patient call this month; coverage will [...] on filedocumented in this encounter Care Teams Weathercaster Relationship Specialty Start Date End Date Community, Pcp PCP - General Internal Medicine 01/05/11 01/27/11 Name, MD Edmund PCP - General Internal Medicine 01/28/11 documented as of this encounter
--- OUTSIDE RECORDS SUMMARY | 2024-05-17 14:19 | XMS_ITS | Encounter Summary ---
Author Organization [employer] [facility] Address [address] [place] [address] Care Team Providers Care Fourdrinier Operator Name Role Phone Name, Edmund HERNANDEZ Primary Care Provider Unavailabl e Encounter Details Date Type Department Care Team Description 09/20/2014 Hospital Medical Records [address] [place] [address] Karsten Christian MD [address] [place] [address] Social History Tobacco Use Types Packs/Day Years [...] on filedocumented in this encounter Care Teams Fourdrinier Operator Relationship Specialty Start Date End Date Name, MD Edmund PCP - General Internal Medicine 01/28/11 documented as of this encounter
--- OUTSIDE RECORDS SUMMARY | 2024-05-17 14:19 | XMS_ITS | Encounter Summary ---
Author Organization [employer] Address [address] 7t [place] [address] Care Team Providers Care Forestry Pilot Name Role Phone Name, Edmund HERNANDEZ Primary Care Provider [phone] Encounter Details Date Type Department Care Team [...] 07/17/2024 10:00 AM EDT Office Visit [facility] [address] [place] [address] NameEdmund MD [address] [place] [address] documented as of this encounter Visit Diagnoses Not on filedocumented in this encounter Additional Health Concerns Assessment Noted Time PHQ-9 Depression Total Score: 0 07/29/19 24 9:26 AM EDT documented as of this encounter Care Teams Forestry Pilot Relationship Specialty Start Date End Date NameEdmund MD [address] [place] [address] PCP - General Family Medicine 04/04/15 documented as of this encounter
--- OUTSIDE RECORDS SUMMARY | 2024-05-17 14:20 | XMS_ITS | Encounter Summary ---
Author Organization [employer] [facility] Address [address] [place] [address] Care Team Providers Care Plycor Operator Name Role Phone Edmund Valentino MD Primary Care Provider Unavailabl e Encounter Details Date Type Department Care Team Description 08/30/2013 Orders Only Adult Medicine [address] [address] Name, MD Edmund Social History Tobacco Use [...] on filedocumented in this encounter Care Teams Plycor Operator Relationship Specialty Start Date End Date Edmund Valentino MD PCP - General Internal Medicine 01/28/11 documented as of this encounter
--- OUTSIDE RECORDS SUMMARY | 2024-05-17 14:20 | XMS_ITS | Encounter Summary ---
Author Organization [employer] [facility] Address [address] [place] [address] Care Team Providers Care Plate Developer Name Role Phone Name, Edmund HERNANDEZ Primary Care Provider Unavailabl e Encounter Details Date Type Department Care Team Description 06/02/2015 Release of Information Medical Records [address] [place] [address] Abstract, Provider Social History Tobacco Use Types [...] on filedocumented in this encounter Care Teams Plate Developer Relationship Specialty Start Date End Date Name, MD Edmund PCP - General Internal Medicine 01/28/11 documented as of this encounter
--- OUTSIDE RECORDS SUMMARY | 2024-05-17 14:20 | XMS_ITS | Encounter Summary ---
Author Organization [employer] [facility] Address [address] [place] [address] Care Team Providers Care Liquid Sugar Melter Name Role Phone Name, Edmund HERNANDEZ Primary Care Provider Unavailabl e Encounter Details Date Type Department Care Team Description 03/22/2013 Hospital Medical Records [address] [place] [address] Monica Figueroa Social History Tobacco Use Types [...] on filedocumented in this encounter Care Teams Liquid Sugar Melter Relationship Specialty Start Date End Date Name, MD Edmund PCP - General Internal Medicine 01/28/11 documented as of this encounter
--- OUTSIDE RECORDS SUMMARY | 2024-05-17 14:20 | XMS_ITS | Encounter Summary ---
Author Organization [employer] Address [address] [facility] 7 [place] [address] Care Team Providers Care Section Crews Activities Clerk Name Role Phone Name, Edmund HERNANDEZ Primary Care Provider [phone] Reason for Visit * Reason Comments Med Refill Encounter Details Date Type Department Care Team ([facility] st Contact Info) Description 01/27/2024 Refill [facility] [address] [place], [place] [phone] Beth Blanco NP [address] [place] [address] Social History Tobacco Use Types Packs/Day Years [...] Description 07/17/2024 10:00 AM EDT Office Visit [facility] [address] [place] [address] Name, MD Edmund [address] [place] [address] documented as of this encounter Visit Diagnoses Not on filedocumented in this encounter Additional Health Concerns Assessment Noted Time PHQ-9 Depression Total Score: 0 07/29/19 24 9:26 AM EDT documented as of this encounter Care Teams Section Crews Activities Clerk Relationship Specialty Start Date End Date Name, MD Edmund [address] [place] [address] PCP - General Family Medicine 04/04/15 documented as of this encounter
--- OUTSIDE RECORDS SUMMARY | 2024-05-17 14:20 | XMS_ITS | Encounter Summary ---
Author Organization [employer] Address [address] [facility] 7t [place] [address] Care Team Providers Care Electronic System Engineer Name Role Phone Name, Edmund HERNANDEZ Primary Care Provider [phone] Reason for Referral * Imaging (STAT) - Closed Specialty Diagnoses / Procedures Referred By Contlai t Referred To Contact Radiology Diagnoses History of strep pharyngitis Neck pain on left side Procedures CT Soft Tissue Neck w/ Contrast Yaa Daly MD [address] [place] [address] Phone: tel: fax: [facility] Referral ID Status Reason Start Date Expiration Date Visits Re quested Visits Authorized [id number] Closed 05/11/2024 05/11/2025 1 1 Reason for Visit * Reason Comments Headache Sore Throat Encounter Details Date Type Department Care Team (Late st Contact Info) Description 05/11/2024 1:20 PM EDT Office Visit [facility] [address] [place] [address] Yaa Daly MD [address] [place], [place] [phone] History of strep pharyngitis (Primary Dx); Mild [...] 07/17/2024 10:00 AM EDT Office Visit [facility] [address] [place] [address] Name, MD Edmund [address] [place] [address] Scheduled Orders Name Type Priority Associated Diagnoses Orde r Schedule CT Soft Tissue Neck w/ Contrast Imaging STAT History of strep pharyngitis Neck pain on left side Expected: 05/11/2024, Expires: 05/11/2025 documented as of this encounter Procedures Procedure Name Priority Date/Time Associated Diagnosis Comments BASIC METABOLIC PANEL Routine 05/11/2024 2:13 PM EDT Neck pain on left side POCT INFLUENZA B (ID NOW RAPID MOLECULAR) [...] complicated documented in this encounter Results * (ABNORMAL) Basic Metabolic Panel (05/11/2024 2:13 PM EDT) Sodium 142 135 - 145 mmol/L [facility] Potassium 3.7 3.3 - 5.1 mmol/L [facility] Chloride 104 96 - 108 mmol/L [facility] Carbon Dioxide 30(H) 22 - 29 mmol/L [facility] Anion Gap 12 12 - 20 [facility] Urea Nitrogen (BUN) 17(H) 9 - 16 mg/dL [facility] Creatinine, Serum 0.74 0.5 - 1.4 mg/dL [facility] Estimated Glomerular Filt Rate >60 [facility] Comment:Chronic Kidney Disea se: Estimated GFR < 60 mL/min/1.55c5Kqquxy Kidney Disease: Estimated GFR < 15 mL/min/1.73m2 Glucose 110 60 - 115 mg/dL [facility] Calcium 10.4(H) 8.4 - 10.2 mg/dL [facility] Blood Venous blood specimen / Unknown 05/11/2024 2:13 PM EDT 05/11/2024 4:20 PM EDT us Yaa Daly MD LAB BLOOD ORDERABLES Final Re sult [facility] [address] [place] [address] [phone] * POCT rapid strep A manually resulted (05/11/2024 1:58 PM EDT) [facility] Rapid Strep A Screen Negative Negative, None Detected Swab 05/11/2024 1:58 PM EDT Yaa Daly MD POINT OF CARE TEST ENTER/EDIT ORDERABLES Final Result * POCT Rapid COVID Ag (05/11/2024 1:58 PM EDT) [facility] Rapid COVID Ag Negative Swab 05/11/2024 1:58 PM EDT Yaa Daly MD POINT OF CARE TEST ENTER/EDIT ORDERABLES Final Result * Influenza A (ID NOW Rapid Molecular) (05/11/2024 1:58 PM EDT) [facility] Influenza A Negative Negative, Indeterminate [facility] Swab 05/11/2024 1:58 PM EDT Yaa Daly MD POINT OF CARE TEST ENTER/EDIT ORDERABLES Final Result Performing Organization Address City/[facility]/ZIP Co de Phone Number [facility] [address] [place] [address] [phone] * Influenza B (ID NOW Rapid Molecular) (05/11/2024 1:58 PM EDT) [facility] Influenza B Negative Negative, Indeterminate [facility] Swab 05/11/2024 1:58 PM EDT Yaa Daly MD POINT OF CARE TEST ENTER/EDIT ORDERABLES Final Result [facility] [address] [place] [address] [phone] documented in this encounter Visit Diagnoses Diagnosis History of strep pharyngitis- Primary Mild intermittent asthma, unspecified whether complicated Neck pain on left side documented in this encounter Additional Health Concerns Assessment Noted Time PHQ-9 Depression Total Score: 0 07/29/19 24 9:26 AM EDT documented as of this encounter Care Teams Electronic System Engineer Relationship Specialty Start Date End Date Name, MD Edmund [address] [place] [address] PCP - General Family Medicine 04/04/15 documented as of this encounter
--- OUTSIDE RECORDS SUMMARY | 2024-05-17 14:20 | XMS_ITS | Encounter Summary ---
Author Organization [employer] [facility] Address [address] [place] [address] 7 [place] [address] Care Team Providers Care Talent Acquisition Specialist Name Role Phone Name, Edmund HERNANDEZ Primary Care Provider [phone] Encounter Details Date Type Department Care Team (Latest Contact Info) Description 08/26/2020 Abstract [facility] CONVERSIONS Dental, Provider, DDS Social History [...] 07/17/2024 10:00 AM EDT Office Visit [facility]INE [address] [place] [address] NameEdmund MD [address] [place] [address] documented as of this encounter Visit Diagnoses Not on filedocumented in this encounter Care Teams Talent Acquisition Specialist Relationship Specialty Start Date End Date Edmund Valentino MD [address] [place] [address] PCP - General Family Medicine 04/04/15 documented as of this encounter
--- OUTSIDE RECORDS SUMMARY | 2024-05-17 14:20 | XMS_ITS | Encounter Summary ---
Author Organization [facility] Address [address] [place] [address] Care Team Providers Care Gericare Aide Name Role Phone Name, Edmund HERNANDEZ Primary Care Provider Unavailabl e Encounter Details Date Type Department Care Team Description 11/12/2016 Business Doc Medical Records [address] [place] [address] Abstract, Provider Social History Tobacco Use Types [...] on filedocumented in this encounter Care Teams Gericare Aide Relationship Specialty Start Date End Date Name, MD Edmund PCP - General Internal Medicine 01/28/11 documented as of this encounter
--- OUTSIDE RECORDS SUMMARY | 2024-05-17 14:20 | XMS_ITS | Encounter Summary ---
Author Organization [email or web address] [facility] Address [address] [place] [address] Care Team Providers Care Smt Operator Name Role Phone Name, Edmund HERNANDEZ Primary Care Provider Unavailabl e Encounter Details Date Type Department Care Team Description 11/15/2013 Release of Information Medical Records [address] [place] [address] Abstract, Provider Social History Tobacco Use Types [...] on filedocumented in this encounter Care Teams Smt Operator Relationship Specialty Start Date End Date Name, MD Edmund PCP - General Internal Medicine 01/28/11 documented as of this encounter
--- OUTSIDE RECORDS SUMMARY | 2024-05-17 14:20 | XMS_ITS | Encounter Summary ---
Author Organization [employer] [facility] Address [address] [place] [address] Care Team Providers Care Laboratory Administrative Director Name Role Phone Name, Edmund HERNANDEZ Primary Care Provider Unavailabl e Encounter Details Date Type Department Care Team Description 07/19/2014 Hereditary Cancer Qu iz Results Medical Records [address] [place] [address] Abstract, Provider Social History Tobacco Use Types [...] on filedocumented in this encounter Care Teams Laboratory Administrative Director Relationship Specialty Start Date End Date Name, MD Edmund PCP - General Internal Medicine 01/28/11 documented as of this encounter
--- OUTSIDE RECORDS SUMMARY | 2024-05-17 14:20 | XMS_ITS | Encounter Summary ---
Author Organization [facility] Address [address] [place] [address] Care Team Providers Care Dye Room Helper Name Role Phone NameEdmund MD Primary Care Provider Unavailabl e Reason for Visit * Reason Onset Date Comments er follow up 07/20/2012 Christy Encounter Details Date Type Department Care Team Description 07/20/2012 Telephone Adult Medicine [address] [address] Name, MD Edmund er follow up (Gee) [...] Which ER did they go to? : [facility] Was the patient admitted? : No. How is the patient feeling? : no change in health status Disposition? : Appointment made for patient at [facility] in 5 day(s) Comments: pain in right side of brain documented in this encounter Plan of Treatment Not on file documented as of this encounter Visit Diagnoses Not on filedocumented in this encounter Care Teams Dye Room Helper Relationship Specialty Start Date End Date Name, MD Edmund PCP - General Internal Medicine 01/28/11 documented as of this encounter
--- OUTSIDE RECORDS SUMMARY | 2024-05-17 14:20 | XMS_ITS | Encounter Summary ---
Author Organization [employer] Address [address] [facility] 7 [place] [address] Care Team Providers Care Beautician Apprentice Name Role Phone Name, Edmund HERNANDEZ Primary Care Provider [phone] Reason for Visit * Reason Comments Med Refill Encounter Details Date Type Department Care Team ([facility] st Contact Info) Description 01/20/2024 Refill [facility] [address] [place], [place] [phone] Name, MD Edmund [address] [place] [address] Social History Tobacco Use Types Packs/Day Years [...] 07/17/2024 10:00 AM EDT Office Visit [facility] [address] [place] [address] Name, MD Edmund [address] [place] [address] documented as of this encounter Visit Diagnoses Not on filedocumented in this encounter Additional Health Concerns Assessment Noted Time PHQ-9 Depression Total Score: 0 07/29/19 24 9:26 AM EDT documented as of this encounter Care Teams Beautician Apprentice Relationship Specialty Start Date End Date Name, MD Edmund [address] [place] [address] PCP - General Family Medicine 04/04/15 documented as of this encounter
--- OUTSIDE RECORDS SUMMARY | 2024-05-17 14:20 | XMS_ITS | Encounter Summary ---
Author Organization [employer] Address [address] [facility] 7 [place] [address] Care Team Providers Care Rehab Trainer Name Role Phone Name, Edmund HERNANDEZ Primary Care Provider [phone] Encounter Details Date Type Department Care Team (Late st Contact Info) Description 05/12/[address] [facility] CHC MED & PEDS [address] [place], [place] [phone] Sarah Sherwood LPN Social History Tobacco Use [...] [facility] MEDICINE [address] [place] [address] Name, MD Edmund [address] [place] [address] documented as of this encounter Procedures Procedure Name Priority Date/Time Associated Diagnosis Comments VASC US LOWER EXTREMITY VENOUS DUPLEX RIGHT Routine 06/11/2022 2:15 PM EDT XR CHEST 2 VIEWS Routine 05/19/2022 5:03 PM EDT documented in this encounter Results * Vascular US lower extremity venous duplex right (06/11/2022 2:15 PM EDT) 06/11/2022 2:15 PM EDT Narrative [facility] IMAGING - 06/11/2022 3:03 PM EDT ? [facility] ?[address] ?[place], [place] [address] ? Ultrasound Report ? Signed ? Patient: Pippa Camilo I ?MR#: [id number] ?? [id number] ? : 1960 ?Acct:[id number] ? Age/Sex: 61 / F ?ADM Date: 06/11/22 ? Loc: HO.US ? Attending Dr: Uli Prakash MD ? Ordering Physician: ULI PRAKASH MD ?? Date of Service: 06/11/22 ?? Procedure(s): US venous duplex LE RT ?? Accession Number(s): [id number] ? cc: ULI PRAKASH MD ? EXAMINATION: [...] 1500 ? DD/ 1415 ? TD/TT: ? Strapper Operator: SK ? Procedure Note Donotuseinterpreter, Image - 06/11/[address] [address] Ultrasound Report Signed Patient: Pippa Camilo IMR#: [id number] : 1960Acct:[id number] Age/Sex: 61 / FADM Date: 06/11/22 Loc: HO.US Attending Dr: Uli Prakash MD Ordering Physician: ULI PRAKASH MD Date of Service: 06/11/22 Procedure(s): US venous duplex LE RT Accession Number(s): [id number] cc: ULI PRAKASH MD EXAMINATION: US VENOUS [...] in OV> 06/11/22 1500 DD/ 1415 TD/TT: Strapper Operator: JOSE us [facility] External Provider CV VASC ULAR PROCEDURES Edited Result - Final [facility] [address] [place] [address] * XR Chest 2 Views (05/19/2022 5:03 PM EDT) Anatomical Region Laterality Modality Chest Radiographic Suzanne ging 05/19/2022 5:03 PM EDT Narrative 05/25/2022 1:42 PM EDT ? [facility] ?[address] ?[place] [address] ?XRay Report ? Signed ? Patient: Renetta Colon,Pippa I ?MR#: [id number] ?? [id number] ? : 1960 ?Acct:[id number] ? Age/Sex: 61 / F ?ADM Date: 05/19/22 ? Loc: HO.XRAY ? Attending Dr: Uli Prakash MD ? Ordering Physician: ULI PRAKASH MD ?? Date of Service: 05/19/22 ?? Procedure(s): XR chest 2V ?? Accession Number(s): [id number] ? cc: ULI PRAKASH MD ? EXAMINATION: [...] 1340 ? DD/ 1703 ? TD/TT: ? Strapper Operator: SERGIO ? Procedure Note Joanie, Image - 05/25/[address] [address] XRay Report Signed Patient: Pippa Camilo [facility]#: [id number] : 1960Acct:[id number] Age/Sex: 61 / FADM Date: 05/19/22 Loc: F[facility] Attending Dr: Uli Prakash MD Ordering Physician: ULI PRAKASH MD Date of Service: 05/19/22 Procedure(s): XR chest 2V Accession Number(s): [id number] cc: ULI PRAKASH MD EXAMINATION: XR CHEST [...] in OV> 05/25/22 1340 DD/ 1703 TD/TT: Strapper Operator: SERGIO Authorahsan Provider Result Type Result Stat [facility] External Provider IMG XR PROCEDURES Edited Result - Final documented in this encounter Visit Diagnoses Not on filedocumented in this encounter Care Teams Rehab Trainer Relationship Specialty Start Date End Date Name, MD Edmund [address] [place] [address] PCP - General Family Medicine 04/04/15 documented as of this encounter
--- OUTSIDE RECORDS SUMMARY | 2024-05-17 14:20 | XMS_ITS | Encounter Summary ---
Author Organization [employer] Address [address] [facility] 7t [place] [address] Care Team Providers Care Track Grinder Name Role Phone Name, Edmund HERNANDEZ Primary Care Provider [phone] Reason for Visit * Reason Onset Date Comments mail appt slip 03/15/2024 Encounter Details Date Type Department Care Team ([facility] st Contact Info) Description 03/15/2024 Telephone [facility] DENTAL [address] [place] [address] Lillie Witt mail appt slip Social History [...] Description 07/17/2024 10:00 AM EDT Office Visit [facility] MEDICINE [address] [place] [address] Name, MD Edmund [address] [place] [address] documented as of this encounter Visit Diagnoses Not on filedocumented in this encounter Additional Health Concerns Assessment Noted Time PHQ-9 Depression Total Score: 0 07/29/19 24 9:26 AM EDT documented as of this encounter Care Teams Track Grinder Relationship Specialty Start Date End Date NameEdmund MD [address] [place] [address] PCP - General Family Medicine 04/04/15 documented as of this encounter
--- OUTSIDE RECORDS SUMMARY | 2024-05-17 14:20 | XMS_ITS | Encounter Summary ---
Author Organization [facility] Address [address] [place] [address] Care Team Providers Care Lumber Stacker Operator Name Role Phone Name, Edmund HERNANDEZ Primary Care Provider Unavailabl e Encounter Details Date Type Department Care Team Description 06/24/2011 Business Doc Medical Records [address] [place] [address] Abstract, Provider Social History Tobacco Use Types [...] on filedocumented in this encounter Care Teams Lumber Stacker Operator Relationship Specialty Start Date End Date Name, MD Edmund PCP - General Internal Medicine 01/28/11 documented as of this encounter
--- OUTSIDE RECORDS SUMMARY | 2024-05-17 14:20 | XMS_ITS | Encounter Summary ---
Author Organization [employer] Address [address] [facility] 7t [place] [address] Care Team Providers Care Physical Education Aide Name Role Phone Name, Edmund HERNANDEZ Primary Care Provider [phone] Reason for Visit * Reason Comments Med Refill Encounter Details Date Type Department Care Team ([facility] st Contact Info) Description 02/10/[address] [facility] MED & PEDS [address] [place], [place] [phone] Name, MD Edmund [address] [place] [address] Social History Tobacco Use Types Packs/Day Years [...] 07/17/2024 10:00 AM EDT Office Visit [facility] MEDICINE [address] [place] [address] Name, MD Edmund [address] [place] [address] documented as of this encounter Visit Diagnoses Not on filedocumented in this encounter Additional Health Concerns Assessment Noted Time PHQ-9 Depression Total Score: 0 07/29/19 24 9:26 AM EDT documented as of this encounter Care Teams Physical Education Aide Relationship Specialty Start Date End Date Name, MD Edmund [address] [place] [address] PCP - General Family Medicine 04/04/15 documented as of this encounter
--- OUTSIDE RECORDS SUMMARY | 2024-05-17 14:20 | XMS_ITS | Encounter Summary ---
Author Organization [employer] [facility] Address [address] [place] [address] Care Team Providers Care Crm Technical Lead Name Role Phone Name, Edmund HERNANDEZ Primary Care Provider Unavailabl e Encounter Details Date Type Department Care Team Description 08/19/2014 Underground Conduit Installer Report Medical Records [address] [place] [address] Freddie Flores Social History Tobacco Use Types [...] on filedocumented in this encounter Care Teams Crm Technical Lead Relationship Specialty Start Date End Date Name, MD Edmund PCP - General Internal Medicine 01/28/11 documented as of this encounter
--- OUTSIDE RECORDS SUMMARY | 2024-05-17 14:20 | XMS_ITS | Encounter Summary ---
Author Organization [facility] Address [address] [place] [address] Care Team Providers Care Yoker Name Role Phone Name, Edmund HERNANDEZ Primary Care Provider Unavailabl e Encounter Details Date Type Department Care Team Description 11/21/2013 Business Doc Medical Records [address] [place] [address] Abstract, Provider Social History Tobacco Use Types [...] on filedocumented in this encounter Care Teams Yoker Relationship Specialty Start Date End Date Name, MD Edmund PCP - General Internal Medicine 01/28/11 documented as of this encounter
--- OUTSIDE RECORDS SUMMARY | 2024-05-17 14:20 | XMS_ITS | Encounter Summary ---
Author Organization [employer] [facility] Address [address] [place] [address] Care Team Providers Care Credit Risk Analyst Name Role Phone Name, Edmund HERNANDEZ Primary Care Provider Unavailabl e Encounter Details Date Type Department Care Team Description 05/14/2013 Clinical Data Management Manager Report Medical Records [address] [place] [address] Karsten Kohli MD Social History Tobacco Use [...] on filedocumented in this encounter Care Teams Credit Risk Analyst Relationship Specialty Start Date End Date Name, MD Edmund PCP - General Internal Medicine 01/28/11 documented as of this encounter
--- OUTSIDE RECORDS SUMMARY | 2024-05-17 14:20 | XMS_ITS | Encounter Summary ---
Author Organization [employer] [facility] Address [address] [place] [address] Care Team Providers Care Senior Accountant Name Role Phone Name, Edmund HERNANDEZ Primary Care Provider Unavailabl e Encounter Details Date Type Department Care Team Description 07/01/2014 Soil Fertility Specialist Report Medical Records [address] [place] [address] Suresh Short MD Social History Tobacco Use [...] on filedocumented in this encounter Care Teams Senior Accountant Relationship Specialty Start Date End Date Name, MD Edmund PCP - General Internal Medicine 01/28/11 documented as of this encounter
--- OUTSIDE RECORDS SUMMARY | 2024-05-17 14:20 | XMS_ITS | Encounter Summary ---
Author Organization [employer] [facility] Address [address] [place] [address] Care Team Providers Care Director Of Vital Statistics Name Role Phone Name, Edmund HERNANDEZ Primary Care Provider Unavailabl e Reason for Visit * Reason Onset Date Comments TEST RESULTS 05/26/2012 Encounter Details Date Type Department Care Team Description 05/26/2012 Telephone Adult [address] [address] Erin Mcqueen NP TEST RESULTS Social History [...] in this encounter Care Teams Director Of Vital Statistics Relationship Specialty Start Date End Date Name, MD Edmund PCP - General Internal Medicine 01/28/11 documented as of this encounter
--- OUTSIDE RECORDS SUMMARY | 2024-05-17 14:20 | XMS_ITS | Encounter Summary ---
Author Organization [facility] Address [address] [place] [address] Care Team Providers Care Evp Name Role Phone Name, Edmund HERNANDEZ Primary Care Provider Unavailabl e Encounter Details Date Type Department Care Team Description 10/14/2011 [employer] Education Teacher Report Medical Records [address] [place] [address] Karsten Beach PA-C Social History Tobacco Use [...] on filedocumented in this encounter Care Teams Evp Relationship Specialty Start Date End Date Name, MD Edmund PCP - General Internal Medicine 01/28/11 documented as of this encounter
--- OUTSIDE RECORDS SUMMARY | 2024-05-17 14:20 | XMS_ITS | Encounter Summary ---
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 Name Role Phone Name, Edmund HERNANDEZ Primary Care Provider [phone] Reason for Referral * Imaging (Routine) - Authorized Specialty Diagnoses / Procedures Referred By Jose Manuel patel Referred To Contact Radiology Diagnoses Dysphagia, unspecified type Procedures Modified Barium Swallow W/ Speech Shona Blandon NP [address] [place] [address] Phone: tel: fax: [address] Phone: tel: fax: Referral ID Status Reason Start Date Expiration Date Visits Requested Visits Authorized [id number] Authorized Perform Procedure 05/16/2024 05/16/2025 1 1 Reason for Visit * Reason Comments Cough Encounter Details Date Type Department Care Team (Late st Contact Info) Description 05/16/2024 2:00 PM EDT Office Visit [facility] [address] [place] [address] [phone] Dysphagia, unspecified type (Primary Dx); Cough in adult patient; Persistent cough; Hoarseness of voice; Lymphadenopathy of left cervical region Social History Tobacco Use Types Packs/Day Years [...] Sign Reading Time Taken Comments Blood Pressure 129/89 05/16/2024 2:05 PM EDT Pulse 76 05/16/2024 2:05 PM EDT Temperature 36.8 ??C (98.3 ??F) 05/16/2024 2:05 PM ED T Respiratory Rate 18 05/16/2024 2:05 PM EDT Oxygen Saturation 98% 05/16/2024 2:05 PM EDT Inhaled Oxygen Concentration - - Weight 68 kg (150 lb) 05/16/2024 2:05 PM EDT Height - - Body Mass Index 29.29 05/11/2024 1:07 PM EDT documented in this encounter Miscellaneous Notes * Patient Education Note - Shona Blandon NP - 05/17/2024 3:46 PM EDT Images from the original note were not included. Patient Education Table of Contents ERGE en adultos: qu?? debe saber (GERD in Adults: What to Know) To view videos and all your education online visit, [email or web address] or scan this QR code with your smartphone. Access to this content will in one year. ERGE en adultos: qu?? debe saber GERD in Adults: What to Know El reflujo gastroesof?gico (RGE) es cuando el ?cido del est?asad sube al es?fago. El es?fago es la parte del cuerpo que transporta los alimentos desde la boca al est?asad. Normalmente, los alimentos bajan y permanecen en el est?asad para ser digeridos. Demario con RGE, los alimentos y el ?cido estomacal pueden volver a subir. Usted puede tener reid enfermedad llamada enfermedad de reflujo gastroesof?gico (ERGE) si el reflujo: Sucede a menudo. Le causa s?ntomas muy intensos. Hace que el es?fago est?? sensible e hinchado. Con el tiempo, la ERGE puede ocasionar jackie?os agujeros, llamado ?lceras, en el revestimiento del es?fago. ?Cu?les son las causas? La ERGE se debe a un problema en el m?sculo que se encuentra entre el es?fago y el est?asad. Sheryl m?sculo se conoce jinny esf?nter esof?gico inferior (EEI). Cuando est?? d?brett o no es normal, no se augusto jinny deber?a. [place] significa que los alimentos y el ?cido estomacal pueden subir al es?fago. Sheryl m?sculo puede estar d?brett si usted: Fuma o consume productos que contienen tabaco. Est?? embarazada. Tiene un tipo de hernia que se llama hernia de hiato. Consume ciertos alimentos y bebidas. [place] incluye lo siguiente: ? Alcohol. ? Caf?. ? Chocolate. ? Cebollas. ? Menta. ?Qu?? incrementa el riesgo? Tener sobrepeso. Tener reid enfermedad que afecta el tejido conjuntivo. Veronica antiinflamatorios no esteroideos (MASON) jinny el ibuprofeno. ?Cu?les son los signos o s?ntomas? Acidez estomacal. Dificultad para tragar. Dolor al tragar. Sensaci?n de tener un bulto en la garganta. Un sabor amargo en la boca. Mal aliento. Est?asad inflamado o con malestar. Eructos. Dolor en el pecho. Otras afecciones tambi?n pueden provocar dolor en el pecho. Es importante que consulte al m?dico si siente dolor en el pecho. Sibilancias. Es la emisi?n de sonidos de silbidos agudos al respirar, m?s a menudo al exhalar. Reid tos a amrik plazo o tos nocturna. ?C?mo se diagnostica? La ERGE se puede diagnosticar en funci?n de los antecedentes m?dicos y de un examen f?sico. Tambi?npueden hacerle pruebas. Pueden incluir: Reid endoscopia. Esta prueba se hace para observar el est?asad y el es?fago con reid c?sabino muy jackie?a. Reid prueba de degluci?n de bario. Esta prueba se hace para observar la forma y el lorraine?o del es?fago y determinar si est?? funcionando deana. Estudios del es?fago para revisar lo siguiente: ? Niveles de ?cido. ? Presi?n. ?C?mo se trata? El tratamiento puede depender de la intensidad de los s?ntomas. Puede incluir lo siguiente: Cambios en vasquez dieta y levar cotidiana. Medicamentos. Reid cirug?a. Siga estas instrucciones en vasquez casa: Comida y bebida Siga un plan de alimentaci?n jinny se lo haya indicado el m?dico. Es posible que deba evitar ciertos alimentos y bebidas. Pueden incluir: ? Caf?? y t?? clay, con o sin cafe?na. ? Alcohol. ? Bebidas energ?flor y deportivas. ? Bebidas gaseosas o refrescos. ? Chocolate y cacao. ? Menta y esencia de menta. ? [place] y cebolla. ? R?george picante. ? Alimentos ?cidos y condimentados. [place] incluye lo siguiente: ? Pimientos. ? [place] en polvo y aguilar en polvo. ? Vinagre. ? Salsas picantes y salsa barbacoa. ? C?tricos y jugos. [place] incluye lo siguiente: ? Naranjas. ? George. ? Reymundo. ? Alimentos que contengan tomate. [place] incluye lo siguiente: ? Salsa olivia y pizza con salsa olivia. ? [place]. ? Salsa. ? Alimentos fritos y grasos. [place] incluye lo siguiente: ? Rosquillas. ? Elizabeth fritas. ? Elizabeth fritas en bolsa. ? Aderezos con alto contenido de grasa. ? Ananda con alto contenido de grasa. [place] incluye lo siguiente: ? Perros calientes y salchichas. ? Chuletas. ? Jam?n y tocino. ? Productos l?cteos ricos en grasas. [place] incluye lo siguiente: ? Leche entera. ? Mantequilla. ? Queso crema. Consuma jackie?as cantidades de comida con m?s frecuencia. No consuma grandes cantidades de comida. Evite beber mucho l?quido con las comidas. Intente no comer mauricio las 2 o 3?horas previas a acostarse. Trate de no acostarse inmediatamente despu?s de comer. No miley ejercicios cornelio despu?s de comer. Estilo de levar Si tiene sobrepeso, baje reid cantidad de peso que sea saludable para usted. Consulte a vasquez m?dico para bajar de peso de manera john. No fume, vapee ni consuma nicotina o tabaco. Use ropa holgada. No use nada apretado alrededor de la cintura. A la hora de dormir, pruebe lo siguiente: ? Levante la cabecera de la cama aproximadamente 6?pulgadas (15?cm). Para hacerlo puede usar reid cu?a. ? Acu?stese del lado romeo. Intente reducir el nivel de estr?s. Si necesita ayuda para lograrlo, consulte a vasquez m?dico. Instrucciones generales [place] medicamentos ?nicamente seg?n las indicaciones. No tome aspirina ni ibuprofeno a menos que se lo indiquen. Controle si hay alg?n cambio en [place] s?ntomas. No se incline hacia adelante si eso empeora [place] s?ntomas. Comun?quese con un m?dico si: Aparecen nuevos s?ntomas. Tiene dificultad para hacer lo siguiente: ? Beber. ? Tragar. ? [place]. Siente dolor al tragar. Tiene sibilancias. Tiene tos que no desaparece. Tiene ronquera. Los s?ntomas no mejoran con el tratamiento. Solicite ayuda de inmediato si: Siente un dolor repentino en estas partes del cuerpo: ? El brazo. ? El forest. ? La belinda?bula. ? Los dientes. ? La espalda. De repente se siente transpirado, mareado o aturdido. Se desmaya. Siente falta de aire o dolor en el pecho. Vomita, y el v?anne: ? Es harriet, amarillo o clay. ? Parece tener mikey o borra de caf?. Defeca y las heces son ayala, sanguinolentas o negras. Estos s?ntomas pueden indicar reid emergencia. Llame al 911 de inmediato. No espere a stuart si los s?ntomas desaparecen. No conduzca por orville propios medios hasta el hospital. Esta informaci?n no tiene jinny fin reemplazar el consejo del m?dico. Aseg?rese de hacerle al m?dicocualquier pregunta que tenga. Document Released: 2005-11-24 Document Updated: 2023-08-29 Document Reviewed: 2023-08-29 I-DISPO Patient Education ? 2024 [email or web address]. * Patient Education Note - Shona Blandon NP - 05/17/2024 3:46 PM EDT Images from the original note were not included. Patient Education Table of Contents ERGE en adultos: cambios en la dieta (GERD in Adults: Diet Changes) To view videos and all your education online visit, [email or web address] or scan this QR code with your smartphone. Access to this content will in one year. ERGE en adultos: cambios en la dieta GERD in Adults: Diet Changes Cuando reid persona tiene enfermedad de reflujo gastroesof?gico (ERGE), es posible que deba hacer cambios en vasquez dieta. Elegir los alimentos adecuados puede ayudar a aliviar los s?ntomas. Considere recurrir a un experto en alimentaci?n saludable llamado nutricionista. Sheryl puede ayudarlo a hacer elecciones alimentarias saludables. Consejos para seguir sheryl plan Al leer las etiquetas de los alimentos Elija alimentos que tengan bajo contenido de grasas saturadas. Los alimentos que pueden ayudar con los s?ntomas incluyen los siguientes: Alimentos con menos del 5?% de los valores diarios (VD) de grasa. Alimentos con 0?gramos de grasas trans. Al cocinar Cocine los alimentos de formas que no requieran morenita grasa. Estas formas incluyen las siguientes: ? Hornear. ? Cocer al vapor. ? Grillar. ? Hervir. Para agregar sabor, trate de consumir hierbas con bajo contenido de picante y acidez. Evite yancy?r los alimentos. Planificaci?n de las comidas Miley comidas jackie?as mauricio el d?a en lugar de hacer 3?comidas abundantes. Coma lentamente y en un lugar donde se sienta relajado. Si se lo indic?? el m?dico, evite: ? Consumir alimentos que le ocasionen s?ntomas. Lleve un registro de los alimentos para identificaraquellos que le causen s?ntomas. ? Alcohol. ? Beber morenita cantidad de l?quido con las comidas. Instrucciones generales Mauricio 2 a 3?horas despu?s de comer, evite: ? Agacharse. ? Realizar actividad f?rebecca. ? Acostarse. Masticar chicle sin az?car despu?s de las comidas. ?Qu?? alimentos hilary comer? Siga reid dieta saludable. Trate de incluir: Alimentos con gran cantidad de fibra. [place] incluye lo siguiente: ? Frutas y verduras. ? Cereales integrales y legumbres. Productos l?cteos con bajo contenido de grasa. Carne magra, pescado y aves. Claras de huevo. Los alimentos que causan s?ntomas en otra persona pueden no causarle s?ntomas a usted. Trabaje con el m?dico para hallar alimentos que alethea seguros para usted. Es posible que los productos que se enumeran m?s arriba no alethea todos los alimentos y las bebidas que puede consumir. Consulte a vasquez nutricionista para obtener m?s informaci?n. Es posible que los productos detallados arriba no constituyan reid lista completa de los alimentos ylas bebidas que puede veronica. Consulte a un nutricionista para obtener m?s informaci?n. ?Qu?? alimentos hilary evitar? Limitar algunos de estos alimentos puede ayudar a aliviar los s?ntomas. Cada persona es diferente. Hable con un nutricionista o con vasquez m?dico para que lo ayude a conocer los alimentos exactos que debe evitar. Algunos de los alimentos que evitar pueden incluir: Frutas Frutas que alethea muy ?cidas. Estas pueden ser las frutas c?tricas jinny la naranja, el pomelo, la pi?a y el byrd?n. Verduras Verduras fritas, jinny las elizabeth fritas. Verduras, salsas o aderezos elaborados con grasa agregada y verduras ?cidas. Estos pueden incluir los tomates y los productos con tomate, el aj?, la cebolla, el ajo y el r?george picante. Cereales Pasteles o panes sin levadura con grasa agregada. Ananda y otras prote?windy Ananda de alto contenido graso jinny carne grasa de mandy o cerdo, salchichas, costillas, jam?n, salchicha, nilay y tocino. Ananda o prote?windy fritas, jinny el pescado frito y el joseph frito. Yemas de huevo. Grasas y aceites [place]. Margarina. Lardo. [place] clarificada. Bebidas Caf?? y otras bebidas con cafe?na. Bebidas gaseosas y azucaradas, jinny los refrescos y las bebidas energizantes. Jugo de fruta hecho con frutas ?cidas, jinny naranja o pomelo. Jugo de tomate. Dulces y postres Chocolate y cacao. [place]. Ali?os y condimentos Menta, jinny la menta piperita y la hierbabuena. Condimentos, hierbas o aderezos que ocasionen s?ntomas. Estos pueden incluir el aguilar, la salsa picante o los aderezos para ensalada a base de vinagre. Es posible que los productos que se enumeran m?s arriba no alethea todos los alimentos y las bebidas que debe evitar. Consulte a vasquez nutricionista para obtener m?s informaci?n. Preguntas para hacerle al m?dico Los cambios en la dieta y en la levar cotidiana a menudo son los primeros pasos que se consuelo para manejar los s?ntomas de ERGE. Si estos cambios no racheal resultados, consulte al m?dico si debe veronica medicamentos. D?nde obtener m?s informaci?n International Foundation for Gastrointestinal Disorders (Fundaci?n Internacional para los Trastornos Gastrointestinales): aboutgerd.org Esta informaci?n no tiene jinny fin reemplazar el consejo del m?dico. Aseg?rese de hacerle al m?dicocualquier pregunta que tenga. Document Released: 2005-11-24 Document Updated: 2023-08-29 Document Reviewed: 2023-08-29 ElseDatalink Patient Education ? 2024 [email or web address]. * Patient Education Note - Shona Blandon NP - 05/17/2024 3:46 PM EDT Images from the original note were not included. Patient Education Table of Contents ERGE en adultos: qu?? debe saber (GERD in Adults: What to Know) To view videos and all your education online visit, [email or web address] or scan this QR code with your smartphone. Access to this content will in one year. ERGE en adultos: qu?? debe saber GERD in Adults: What to Know El reflujo gastroesof?gico (RGE) es cuando el ?cido del est?asad sube al es?fago. El es?fago es la parte del cuerpo que transporta los alimentos desde la boca al est?asad. Normalmente, los alimentos bajan y permanecen en el est?asad para ser digeridos. Demario con RGE, los alimentos y el ?cido estomacal pueden volver a subir. Usted puede tener reid enfermedad llamada enfermedad de reflujo gastroesof?gico (ERGE) si el reflujo: Sucede a menudo. Le causa s?ntomas muy intensos. Hace que el es?fago est?? sensible e hinchado. Con el tiempo, la ERGE puede ocasionar jackie?os agujeros, llamado ?lceras, en el revestimiento del es?fago. ?Cu?les son las causas? La ERGE se debe a un problema en el m?sculo que se encuentra entre el es?fago y el est?asad. Sheryl m?sculo se conoce jinny esf?nter esof?gico inferior (EEI). Cuando est?? d?brett o no es normal, no se augusto jinny deber?a. [place] significa que los alimentos y el ?cido estomacal pueden subir al es?fago. Sheryl m?sculo puede estar d?brett si usted: Fuma o consume productos que contienen tabaco. Est?? embarazada. Tiene un tipo de hernia que se llama hernia de hiato. Consume ciertos alimentos y bebidas. [place] incluye lo siguiente: ? Alcohol. ? Caf?. ? Chocolate. ? Cebollas. ? Menta. ?Qu?? incrementa el riesgo? Tener sobrepeso. Tener reid enfermedad que afecta el tejido conjuntivo. Veronica antiinflamatorios no esteroideos (MASON) jinny el ibuprofeno. ?Cu?les son los signos o s?ntomas? Acidez estomacal. Dificultad para tragar. Dolor al tragar. Sensaci?n de tener un bulto en la garganta. Un sabor amargo en la boca. Mal aliento. Est?asad inflamado o con malestar. Eructos. Dolor en el pecho. Otras afecciones tambi?n pueden provocar dolor en el pecho. Es importante que consulte al m?dico si siente dolor en el pecho. Sibilancias. Es la emisi?n de sonidos de silbidos agudos al respirar, m?s a menudo al exhalar. Reid tos a amrik plazo o tos nocturna. ?C?mo se diagnostica? La ERGE se puede diagnosticar en funci?n de los antecedentes m?dicos y de un examen f?sico. Tambi?npueden hacerle pruebas. Pueden incluir: Reid endoscopia. Esta prueba se hace para observar el est?asad y el es?fago con reid c?sabino muy jackie?a. Reid prueba de degluci?n de bario. Esta prueba se hace para observar la forma y el lorraine?o del es?fago y determinar si est?? funcionando deana. Estudios del es?fago para revisar lo siguiente: ? Niveles de ?cido. ? Presi?n. ?C?mo se trata? El tratamiento puede depender de la intensidad de los s?ntomas. Puede incluir lo siguiente: Cambios en vasquez dieta y levar cotidiana. Medicamentos. Reid cirug?a. Siga estas instrucciones en vasquez casa: Comida y bebida Siga un plan de alimentaci?n jinny se lo haya indicado el m?dico. Es posible que deba evitar ciertos alimentos y bebidas. Pueden incluir: ? Caf?? y t?? clay, con o sin cafe?na. ? Alcohol. ? Bebidas energ?flor y deportivas. ? Bebidas gaseosas o refrescos. ? Chocolate y cacao. ? Menta y esencia de menta. ? [place] y cebolla. ? R?george picante. ? Alimentos ?cidos y condimentados. [place] incluye lo siguiente: ? Pimientos. ? [place] en polvo y aguilar en polvo. ? Vin[place]re. ? Salsas picantes y salsa barbacoa. ? C?tricos y jugos. [place] incluye lo siguiente: ? Naranjas. ? [place]. ? Reymundo. ? Alimentos que contengan tomate. [place] incluye lo siguiente: ? Salsa olivia y pizza con salsa olivia. ? [place]. ? Salsa. ? Alimentos fritos y grasos. [place] incluye lo siguiente: ? [place]. ? Elizabeth fritas. ? Elizabeth fritas en bolsa. ? Aderezos con alto contenido de grasa. ? Ananda con alto contenido de grasa. [place] incluye lo siguiente: ? Perros calientes y salchichas. ? Chuletas. ? Jam?n y tocino. ? Productos l?cteos ricos en grasas. [place] incluye lo siguiente: ? Leche entera. ? [place]. ? Queso crema. Consuma jackie?as cantidades de comida con m?s frecuencia. No consuma grandes cantidades de comida. Evite beber mucho l?quido con las comidas. Intente no comer mauricio las 2 o 3?horas previas a acostarse. Trate de no acostarse inmediatamente despu?s de comer. No miley ejercicios cornelio despu?s de comer. Estilo de levar Si tiene sobrepeso, baje reid cantidad de peso que sea saludable para usted. Consulte a vasquez m?dico para bajar de peso de manera john. No fume, vapee ni consuma nicotina o tabaco. Use ropa holgada. No use nada apretado alrededor de la cintura. A la hora de dormir, pruebe lo siguiente: ? Levante la cabecera de la cama aproximadamente 6?pulgadas (15?cm). Para hacerlo puede usar reid cu?a. ? Acu?stese del lado romeo. Intente reducir el nivel de estr?s. Si necesita ayuda para lograrlo, consulte a vasquez m?dico. Instrucciones generales [place] medicamentos ?nicamente seg?n las indicaciones. No tome aspirina ni ibuprofeno a menos que se lo indiquen. Controle si hay alg?n cambio en [place] s?ntomas. No se incline hacia adelante si eso empeora [place] s?ntomas. Comun?quese con un m?dico si: Aparecen nuevos s?ntomas. Tiene dificultad para hacer lo siguiente: ? Beber. ? Tragar. ? [place]. Siente dolor al tragar. Tiene sibilancias. Tiene tos que no desaparece. Tiene ronquera. Los s?ntomas no mejoran con el tratamiento. Solicite ayuda de inmediato si: Siente un dolor repentino en estas partes del cuerpo: ? El brazo. ? El forest. ? La belinda?bula. ? Los dientes. ? La espalda. De repente se siente transpirado, mareado o aturdido. Se desmaya. Siente falta de aire o dolor en el pecho. Vomita, y el v?anne: ? Es harriet, amarillo o lcay. ? Parece tener mikey o borra de caf?. Defeca y las heces son ayala, sanguinolentas o negras. Estos s?ntomas pueden indicar reid emergencia. Llame al 911 de inmediato. No espere a stuart si los s?ntomas desaparecen. No conduzca por [place] propios medios hasta el hospital. Esta informaci?n no tiene jinny fin reemplazar el consejo del m?dico. Aseg?rese de hacerle al m?dicocualquier pregunta que tenga. Document Released: 2005-11-24 Document Updated: 2023-08-29 Document Reviewed: 2023-08-29 Elsevier Patient Education ? 2024 [employer] documented in this encounter Plan of Treatment Upcoming Encounters Date Type Department Care Team (Late st Contact Info) Description 07/17/2024 10:00 AM EDT Office Visit [facility] [address] [place] [address] Name, MD Edmund [address] [place] [address] Scheduled Orders Name Type Priority Associated Diagnoses Orde r Schedule Modified Barium Swallow W/ Speech Imaging Routine Dysphagia, unspecified type Expected: 05/16/2024, Expires: 05/16/2025 documented as of this encounter Procedures Procedure Name Priority Date/Time Associated Diagnosis Comments XR CHEST 2 VIEWS Routine 05/17/2024 11:5 6 AM EDT Cough in adult patient POCT INFLUENZA B (ID NOW RAPID MOLECULAR) Routine 05/16/2024 2:21 PM EDT Cough in adult patient POCT INFLUENZA A (ID NOW RAPID MOLECULAR) Routine 05/16/2024 2:21 PM EDT Cough in adult patient POCT COVID-19 AG HUMPHREY ID NOW Routine 05/16/2024 2:10 PM EDT Cough in adult patient POCT RAPID STREP A Routine 05/16/2024 2: 10 PM EDT Cough in adult patient documented in this encounter Results * XR Chest 2 Views (05/17/2024 11:56 AM EDT) Anatomical Region Laterality Modality Chest Radiographic Suzanne ging 05/17/2024 11:5 6 AM EDT Narrative 05/17/2024 12:27 PM EDT ?[facility] ?[address] ?[place] [address] ?XRay Report ? Signed ? Patient: Renetta Colon,Pippa I ?MR#: [id number] ?? [id number] ? : 1960 ?Acct:[id number] ? Age/Sex: 63 / F ?ADM Date: 03/20/25 ? Loc: HO.HHCX ? Attending Dr: Shona Blandon ? Ordering Physician: Shona Blandon ?? Date of Service: 05/17/24 ?? Procedure(s): XR chest 2V ?? Accession Number(s): [id number] ? cc: Shona Blandon ? EXAMINATION: ??XR CHEST 2 VIEWS ? HISTORY: persistent cough ? COMPARISON: Comparison is made with the prior examination dated ?? 03/23/2023. ? FINDINGS: ??PA and lateral views of the chest are submitted. The lungs ?? are expanded and clear. ??There is no pleural effusion, pneumothorax, or ?? pulmonary vascular congestion. ??The heart is normal in size. ??The bones ?? are intact. ? XR/XR chest 2V ?? IMPRESSION: ?? No acute cardiopulmonary abnormality. ? Electronically signed by: ??Jeancarlos Calderon MD ??05/17/2024 12:24 PM EDT ? Dictated By: ?Jeancarlos Calderon MD ? Signed By: ?<Electronically signed by Jeancarlos Calderon MD in OV> ?05/17/24 1224 ? DD/ 1156 ? TD/TT: 05/17/24 1206 ? Recycling Manager: ? Procedure Note Perfecto Nair - 05/17/[address] [address] XRay Report Signed Patient: Pippa Camilo IMR#: [id number] : 1960Acct:[id number] Age/Sex: 63 / FADM Date: 05/17/24 Loc: HO.HHCX Attending Dr: Shona Blandon Ordering Physician: Shona Blandon Date of Service: 05/17/24 Procedure(s): XR chest 2V Accession Number(s): [id number] cc: Shona Blandon EXAMINATION: XR CHEST 2 VIEWS HISTORY: persistent cough COMPARISON: Comparison is made with the prior examination dated 03/23/2023. FINDINGS: PA and lateral views of the chest are submitted. The lungs are expanded and clear. There is no pleural effusion, pneumothorax, or pulmonary vascular congestion. The heart is normal in size. The bones are intact. XR/XR chest 2V IMPRESSION: No acute cardiopulmonary abnormality. Electronically signed by: Jeancarlos Calderon MD 05/17/2024 12:24 PM EDT Dictated By: Jeancarlos Calderon MD Signed By: <Electronically signed by Jeancarlos Calderon MD in OV> 05/17/24 1224 DD/ 1156 TD/TT: 05/17/24 1206 Recycling Manager: Shona Appra POCKET BUILDER IMG XR PROCEDURES Final Result * Influenza B (ID NOW Rapid Molecular) (05/16/2024 2:21 PM EDT) [facility] Influenza B Negative Negative, Indeterminate [facility] Swab 05/16/2024 2:21 PM EDT Shona Blandon POCKET BUILDER POINT OF CARE TEST ENTER/EDIT O RDERABLES Final Result Performing Organization Address [facility] Co de Phone Number [facility] [address] [place] [phone] * Influenza A (ID NOW Rapid Molecular) (05/16/2024 2:21 PM EDT) [facility] Influenza A Negative Negative, Indeterminate [facility] Swab 05/16/2024 2:21 PM EDT [facility] [facility] POCKET BUILDER POINT OF CARE TEST ENTER/EDIT O RDERABLES Final Result Performing Organization Address [facility] Co de Phone Number [facility] [address] [place] [phone] * POCT rapid strep A manually resulted (05/16/2024 2:10 PM EDT) [facility] Rapid Strep A Screen Negative Negative, None Detected Swab 05/16/2024 2:10 PM EDT [facility] POCKET BUILDER POINT OF CARE TEST ENTER/EDIT O RDERABLES Final Result * POCT COVID-19 Ag Humphrey ID NOW (05/16/2024 2:10 PM EDT) Coronavirus Antigen PCR Negative Negative, Indeterminate, None Detected, Invalid, Specimen unsatisfactory for evaluation, Weakly Positive Swab 05/16/2024 2:10 PM EDT [facility] POINT OF CARE TEST ENTER/EDIT O RDERABLES Final Result documented in this encounter Visit Diagnoses Diagnosis Dysphagia, unspecified type- Primary Cough in adult patient Persistent cough Hoarseness of voice Dysphonia Lymphadenopathy of left cervical region documented in this encounter Additional Health Concerns Assessment Noted Time PHQ-9 Depression Total Score: 0 07/29/19 24 9:26 AM EDT documented as of this encounter Care Teams Gas Furnace Installer Relationship Specialty Start Date End Date Name, MD Edmund [address] [place] [phone] PCP - General Family Medicine 04/04/15 documented as of this encounter
--- OUTSIDE RECORDS SUMMARY | 2024-05-17 14:20 | XMS_ITS | Encounter Summary ---
Author Organization [facility] Address [address] [place] [address] Care Team Providers Care Dragsaw Operator Name Role Phone Name, Edmund HERNANDEZ Primary Care Provider Unavailabl e Encounter Details Date Type Department Care Team Description 11/04/2015 Business Doc Medical Records [address] [place] [id number] Abstract, Provider Social History Tobacco Use Types [...] on filedocumented in this encounter Care Teams Dragsaw Operator Relationship Specialty Start Date End Date Name, MD Edmund PCP - General Internal Medicine 01/28/11 documented as of this encounter
--- OUTSIDE RECORDS SUMMARY | 2024-05-17 14:20 | XMS_ITS | Encounter Summary ---
Author Organization [employer] [facility] Address [address] [place] [address] Care Team Providers Care Agriculture Instructor Name Role Phone Name, Edmund HERNANDEZ Primary Care Provider Unavailabl e Encounter Details Date Type Department Care Team Description 05/08/2014 Cancer Program Consultant Report Medical Records [address] [place] [phone] Karsten Kohli MD Social History Tobacco Use [...] filedocumented in this encounter Care Teams Agriculture Instructor Relationship Specialty Start Date End Date Name, MD Edmund PCP - General Internal Medicine 01/28/11 documented as of this encounter
--- OUTSIDE RECORDS SUMMARY | 2024-05-17 14:20 | XMS_ITS | Clinical Summary ---
Author Organization [employer] Address [address] [facility] 7 [place] [address] Care Team Providers Care Catering Manager Name Role Phone Name, Edmund HERNANDEZ Primary Care Provider [phone] Allergies Active Allergy Reactions Criticality Noted Date Comments Alprazolam Nausea And Vomiting,Other,Swell ing 03/06/2008 Patient describes that she had a withdrawal from this medication causing extreme anxiety and dificulty breathin. She denies an actual allergy to this medicine Aspirin Nausea And Vomiting,Swelling High 03/06/2008 Other reaction(s): OTHER LegacyRecord#[id number] Throat closing Green Dye High 11/15/2018 IV DYE Iodinated Contrast Media Nausea And Vomiting,Swelling 03/06/2008 Other reaction(s): arm swelling Other reaction(s): OTHER Throat closing Iodine High 04/04/2015 LegacyRecord#[id number] Tuberculin Ppd High 11/15/2018 Tuberculin Purified Protein Derivative 08/20/2022 Other reaction(s): ?reaction Tuberculin, Ppd 01/09/2013 LegacyRecord#[id number] Medications fluticasone (Flonase) 50 MCG/ACT nasal sprayIndications [...] day. 30 capsule 2 Active glucose blood (SolumTouch Verio) test stripIndications :Type 2 diabetes mellitus without complication, without long-term current use of insulin ([facility]) USE TO TEST BLOOD SUGAR ONCE A [...] complication, without long-term current use of insulin (CMS/[facility]) Inject 0.5 mL (0.75 mg) under the skin 1 (one) time per week. INJECT 0.5 ML SUBCUTANEOUSLY EVERY WEEK. 2 mL Active OneTouch Delica Lancets 33G [facility] USE TO TEST BLOOD SUGAR EVERY DAY 100 each Active Ventolin HFA 108 (90 Base) MCG/ACT inhalerIndicatio ns:Mild intermittent asthma, unspecified whether complicated USAR 2 INHALACIONS POR LA BOCA CADA 4 O 6 HORAS REBECA SEA NECESARIO 18 g 2 025 Active metFORMIN (Glucophage) 500 MG tabletIndication s:Type 2 diabetes mellitus without complication, without long-term current use of insulin (CMS/[facility]) TAKE 1 TABLET BY ORAL ROUTE 2 TIMES EVERY DAY WITH MORNING AND EVENING MEALS 60 tablet 5 025 Active atorvastatin (Lipitor) 20 MG tabletIndication s:Type 2 diabetes mellitus without complication, without long-term current use of insulin (CMS/[facility]) Take 1 tablet (20 mg) by mouth [...] (as needed). 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 Assessment & Plan (2023 3:54 PM EDT): In close care with oncology, utd on mammogram Hypertrophic condition of skin 10/26/2018 Overview (08/20/2022): Overview Note: Hypertrophic disorders of skin #4120050# EXT_ID: [id number] 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 Overview (08/20/2022): Overview Note: Monoarthritis, not elsewhere classified, knee #1430662# EXT_ID: [id number] Assessment & Plan (2023 4:01 PM EDT): Trial tramadol, Medication Indications, side effects and duration of therapy reviewed, pt aware to call clinic for worsening symptoms or failure to resolve Dry eye syndrome 10/04/2018 Overview (08/20/2022): Overview Note: Dry eye syndrome #[id number]# EXT_ID: [id number] Pain in knee 10/04/2018 Overview (08/20/2022): Overview Note: Pain in knee #[id number]# EXT_ID: [id number] Intraductal carcinoma in situ of breast 08/04/19 19 Overview (08/20/2022): Overview Note: Intraductal carcinoma in situ of breast #0044994# EXT_ID: [id number] Benign mammary dysplasia 08/01/2018 Overview (08/20/2022): Overview Note: Other benign mammary dysplasias #8330517# EXT_ID: [id number] Mild persistent asthma 07/27/2018 Overview (08/20/2022): Overview Note: Mild intermittent asthma #1267268# EXT_ID: [id number] Assessment & Plan (06/13/2023 2:10 PM EDT): Stable mild intermittent, seasonal allergies are triggers, Anxiety disorder 07/27/2018 Overview (08/20/2022): The patient follows with Dr Taylor Overview Note: Other anxiety disorders #1675916# EXT_ID: [id number] Assessment & Plan (2023 3:55 PM EDT): Reports stable and well managed, continue current regimen Hypertension 07/27/2018 Overview (06/13/2023): At goal today, continue amlodipine and metoprolol, consider josefa or arb given concurrent dm, defer to pcp Joint pain 11/08/2017 Diabetes mellitus, type 2 05/21/2016 Overview (08/20/2022): Overview Note: Type 2 diabetes mellitus #2145768# EXT_ID: [id number] Allergic rhinitis 05/21/2016 Assessment & Plan (2023 [...] Overview (08/20/2022): Overview Note: Carpal tunnel syndrome #9023259# EXT_ID: [id number] Atypical lobular hyperplasia (ALH) of breast Overview (08/20/2022): Patient [facility] and [facility] and with Dr Avina. She was on Tamoxigen for 5 years Umbilical hernia 07/16/2011 Impaired fasting glucose 01/28/2011 Breast microcalcification, mammographic 01/09/20 11 Overview (08/20/2022): Biopsied in [place] 07-07-2009, fibrocystic disease. Acquired hypothyroidism 01/05/2011 Overview (08/20/2022): Overview Note: Other hypothyroidism #6010911# EXT_ID: [id number] Assessment & Plan (06/28/2023 11:56 AM EDT): [...] 12/08/2018 12/06/2023 Overview (08/20/2022): Overview Note: Cough #[id number]# EXT_ID: [id number] Major depressive disorder, recurrent 10/26/2018 06/29/2023 Overview (04/06/2022): Overview Note: Major depressive disorder, recurrent #2470019# EXT_ID: [id number] Lung mass 01/08/2011 2023 Overview (08/20/2022): F/u recommended somewhere between 01/09 and 07/10 Abdominal pain 03/06/2008 12/06/2023 Overview (08/20/2022): Overview Note: Dorsalgia #8851708# EXT_ID: [id number] Cervical spine disc herniation Overview Note: Other abdominal pain #0817291# EXT_ID: [id number] Asthma 03/06/2008 12/06/2023 Assessment & Plan (07/30/2023 4:20 PM EDT): Recent exacerbation, no audible wheeze today, continue inhalers Assessment & Plan (2023 4:09 PM EDT): Continue current inhalers, seasonal allergies are trigger, monitor for increased albuterol usage Encounters Date Type Department Care Team Description 05/16/2024 2:00 PM EDT Office Visit [facility] [address] [address] Dysphagia, unspecified type (Primary Dx); Cough in adult patient; Persistent cough; Hoarseness of voice; Lymphadenopathy of left cervical region 05/11/2024 1:20 PM EDT Office Visit [facility] [address] [address] Yaa Daly MD History of strep pharyngitis (Primary Dx); Mild intermittent asthma, unspecified whether complicated; Neck pain on left side 05/11/2024 Travel 04/19/2024 10:45 AM EST Office Visit [facility] [address] [place] [phone] Alyssa Sandra MD Chronic bilateral low back pain with left-sided sciatica (Primary Dx) 04/19/2024 9:45 AM EST Office Visit [facility] [address] [place] [phone] Edmund Valentino MD Type 2 diabetes mellitus without complication, without long-term current use of insulin ([facility]) (Primary Dx); Acquired hypothyroidism; Strep throat 04/09/2024 2:00 PM EST Office Visit [facility] [address] [place] [phone] Shona Blandon NP Flu-like symptoms (Primary Dx); Strep pharyngitis; Hoarse voice quality 04/02/[address] [address] Edmund Valentino MD Mild intermittent asthma, unspecified whether complicated 03/15/2024 Telephone [facility] [address] [place] [phone] Lillie Witt mail appt slip 03/13/2024 Telephone [facility] [address] [place] [phone] Isabel Salas ANP 03/12/2024 1:20 PM EST Office Visit [facility] [address] [address] Norbert Rico MD Chronic bilateral low back pain with left-sided sciatica (Primary Dx) 03/07/[address] [address] Daisy Correa, RN Results from Last 3 Months Immunizations [...] (150 lb) 05/16/2024 2:05 PM EDT Height 152.4 cm (5') 05/11/2024 1:07 PM EDT Body Mass Index 29.29 05/11/2024 1:07 PM EDT Plan of Treatment Upcoming Encounters Date Type Department Care Team (Late st Contact Info) Description 07/17/2024 10:00 AM EDT Office Visit [facility] [address] [place] [phone] Name, MD Edmund [address] [place] [address] Health Maintenance Due Date Last Done Comments [...] 10 PM EDT Cough in adult patient POCT COVID-19 AG HUMPHREY ID NOW Routine 05/16/2024 2:10 PM EDT Cough in adult patient BASIC METABOLIC PANEL Routine 05/11/2024 2:13 PM EDT Neck pain on left side T-SPOT(R).TB Routine 05/11/2024 2:13 PM EDT Screening for tuberculosis POCT RAPID STREP A Routine 05/11/2024 1: [...] long-term current use of insulin (CMS/HCC) POCT INFLUENZA B (ID NOW RAPID MOLECULAR) [...] Maintenance Results * XR Chest 2 Views (05/17/2024 11:56 AM EDT) Anatomical Region Laterality Modality Chest Radiographic Suzanne ging 05/17/2024 11:5 6 AM EDT Narrative 05/17/2024 12:27 PM EDT ?[facility] ?[address] ?[place] [address] ?XRay Report ? Signed ? Patient: Renetta Colon,Pippa I ?MR#: [id number] ?? [id number] ? : 1960 ?Acct:[id number] ? Age/Sex: 63 / F ?ADM Date: 05/17/24 ? Loc: HO.HHCX ? Attending Dr: Shona Blandon ? Ordering Physician: Shona Blandon ?? Date of Service: 05/17/24 ?? Procedure(s): XR chest 2V ?? Accession Number(s): [id number] ? cc: Shona Blandon ? EXAMINATION: ??XR [...] ??Jeancarlos Calderon MD ??05/17/2024 12:24 PM EDT ?? RP ? Dictated By: ?Jeancarlos Calderon MD ? Signed By: ?<Electronically signed by Jeancarlos Calderon MD in OV> ?05/17/24 1224 ? DD/ 1156 ? TD/TT: 05/17/24 1206 ? Management Trainee Marketing: ? Procedure Note Joanie, Image - 05/17/2024 [facility] [address] [place] [address] XRay Report Signed Patient: Pippa Camilo IMR#: [id number] : 1960Acct:[id number] Age/Sex: 63 / FADM Date: 05/17/24 Loc: HO.HHCX Attending Dr: Shona Blandon Ordering Physician: Shona Blandon Date of Service: 05/17/24 Procedure(s): XR chest 2V Accession Number(s): [id number] cc: Shona Blandon EXAMINATION: XR CHEST 2 [...] 05/17/24 1224 DD/ 1156 TD/TT: 05/17/24 1206 Management Trainee Marketing: Shona Blandon CADASTRAL SURVEYOR IMG XR PROCEDURES Final Result * Influenza B (ID NOW Rapid Molecular) (05/16/2024 2:21 PM EDT) Only the most recent of3 resultswithin the time period is included. Influenza B Negative Negative, Indeterminate [facility] Swab 05/16/2024 2:21 PM EDT us Shona Blandon CADASTRAL SURVEYOR POINT OF CARE TEST ENTER/EDIT O RDERABLES Final Result [facility] [address] [place] [phone] * Influenza A (ID NOW Rapid Molecular) (05/16/2024 2:21 PM EDT) Only the most recent of3 resultswithin the time period is included. [facility] Influenza A Negative Negative, Indeterminate [facility] Swab 05/16/2024 2:21 PM EDT [facility] CADASTRAL SURVEYOR POINT OF CARE TEST ENTER/EDIT O RDERABLES Final Result [facility] [address] [place] [phone] * POCT COVID-19 Ag Humphrey ID NOW (05/16/2024 2:10 PM EDT) [facility] Coronavirus Antigen PCR Negative Negative, Indeterminate, None Detected, Invalid, Specimen unsatisfactory for evaluation, Weakly Positive Swab 05/16/2024 2:10 PM EDT [facility] CADASTRAL SURVEYOR POINT OF CARE TEST ENTER/EDIT O RDERABLES Final Result * POCT rapid strep A manually resulted (05/16/2024 2:10 PM EDT) Only the most recent of3 resultswithin the time period is included. [facility] Rapid Strep A Screen Negative Negative, None Detected Swab 05/16/2024 2:10 PM EDT [facility] CADASTRAL SURVEYOR POINT OF CARE TEST ENTER/EDIT O RDERABLES Final Result * T-SPOT??.TB (05/11/2024 2:13 PM EDT) Only the most recent of2 resultswithin the time period is included. [facility] T Spot TB Negative Negative [facility] Comment:A negative test resu lt [...] interpreted as aquantitative test. TS PANEL A 0 [facility] TS PANEL B 0 [facility] Negative Control Passed [facility] Positive Control Passed [facility] Comment:For additional infor micheal, please refer tohttp://education.Kerecis/faq/JOQ518(This link is being provided for informational/educational purposes only.)THIS TEST WAS PERFORMED AT:[employer] [id number] [place] [phone] HALL MD,PHD 05/11/2024 2:13 PM EDT 05/11/2024 4:20 PM EDT Edmund Valentino MD LAB BLOOD ORDERABLES Final Resul t [facility] [address] [place] [phone] * (ABNORMAL) Basic Metabolic Panel (05/11/2024 2:13 PM EDT) Sodium 142 135 - 145 mmol/L [facility] Potassium 3.7 3.3 - 5.1 mmol/L [facility] Chloride 104 96 - 108 mmol/L [facility] Carbon Dioxide 30(H) 22 - 29 mmol/L [facility] Anion Gap 12 12 - 20 [facility] Urea Nitrogen (BUN) 17(H) 9 - 16 mg/dL [facility] Creatinine, Serum 0.74 0.5 - 1.4 mg/dL [facility] Estimated Glomerular Filt Rate >60 [facility] Comment:Chronic Kidney Disea se: Estimated GFR < 60 mL/min/[id number] Kidney Disease: Estimated GFR < 15 mL/min/1.73m2 Glucose 110 60 - 115 mg/dL [facility] Calcium 10.4(H) 8.4 - 10.2 mg/dL [facility] Blood Venous blood specimen / Unknown 05/11/2024 2:13 PM EDT 05/11/2024 4:20 PM EDT Yaa Daly MD LAB BLOOD ORDERABLES Final Re sult Performing Organization Address [facility] Co de Phone Number [facility] [address] [place] [phone] * POCT Rapid COVID Ag (05/11/2024 1:58 PM EDT) Only the most recent of2 resultswithin the time period is included. Rapid COVID Ag Negative Swab 05/11/2024 1:58 PM EDT Yaa Daly MD POINT OF CARE TEST ENTER/EDIT ORDERABLES Final Result * TSH W/Reflex to FT4 (04/19/2024 10:25 AM EST) Pathologist [facility] TSH reflex Free T4 2.19 0.32 - 4.0 uIU/mL [facility] Blood Venous blood specimen / Unknown 04/19/2024 10:25 AM EST 04/19/2024 11:36 AM EST Edmund Valentino MD LAB BLOOD ORDERABLES Final Resul t Performing Organization Address [facility] Co de Phone Number [facility] [address] [place] [phone] * POCT Glucose (04/19/2024 9:55 AM EST) Glucose Blood, POC 129 60 - 200 mg/dL QC Media Lot # [id number] Lot# Expiration Date Blood Capillary blood specimen / Unknown 04/19/2024 9:55 AM EST us Edmund Valentino MD POINT OF CARE TEST ENTER/EDIT OR DERABLES Final Result * Albumin, Random Urine W/Creatinine (12/06/2023 10:00 AM EDT) Creatinine, Urine 123.16 mg/dL [facility] Microalbumin Urine 11.0 mg/L [facility] Microalbum Creatinine Ratio Ur 8.9 <30 ug/mg cr [facility] Comment:Albumin/Creatinine R atio Reference Ranges: Normal: < 30 ug/mg creatinine Microalbuminuria: 30 - 300 ug/mg creatinineClinical Albuminuria: > 300 ug/mg creatinine Urine (Urine, Random) 12/06/2023 10:00 AM EDT 12/06/2023 11:23 AM EDT us Edmund Valentino MD LAB URINE ORDERABLES Final Resul t Performing Organization Address City/State/[facility] Co de Phone Number [facility] [address] [place] [phone] * (ABNORMAL) POCT HGB A1C (12/06/2023 9:03 AM EDT) Hemoglobin A1C 6.6(A) 4.0 - 6.0 % QC Media Lot # [id number] Lot# Expiration Date [id number] Blood 12/06/2023 9:03 AM EDT Result Dottie Valentino MD POINT OF CARE TEST ENTER/EDIT OR DERABLES Final Result * BI Mammogram Screening Tomosynthesis Bilateral (07/05/2023 1:55 PM EDT) Anatomical Region Laterality Modality Breast Bilateral Mammography 07/05/2023 1:55 PM EDT Narrative 08/04/2023 1:26 PM EDT ? [facility] ? [address] ?[place] [address] ? Mammography Report ? Signed ? Patient: Renetta Colon,Pippa I ?MR#: [id number] ?? [id number] ? : 1960 ?Acct:[id number] ? Age/Sex: 63 / F ?ADM Date: 07/05/23 ? Loc: HO.MAMMO ? Attending Dr: Tank Avina MD ? Ordering Physician: Tank Avina MD ?Results: 2Benig ?? n Findings ? Date of Service: 07/05/23 ?Follow Up: 1 Year From Orig ?? inal Mammogram ? Procedure(s): MM tomosynthesis screening BI ?? Accession Number(s): [id number] ? cc: Tank Avina MD; Name,Edmund HERNANDEZ [...] 1323 ? DD/ 1355 ? TD/TT: ? Management Trainee Marketing: ? Procedure Note Joanie, Perfecto - 08/04/2023 [facility] [address] [place] [address] Mammography Report Signed Patient: Pippa Camilo IMR#: [id number] : 1960Acct:[id number] Age/Sex: 63 / FADM Date: 07/05/23 Loc: JESSICA.MAMMO Attending Dr: Tank Avina MD Ordering Physician: Tank Avina MDResults: 2Benig n Findings Date of Service: 07/05/23Follow Up: 1 Year From Orig inal Mammogram Procedure(s): MM tomosynthesis screening BI Accession Number(s): [id number] cc: Tank Avina MD; Name,Edmund HERNANDEZ EXAMINATION: [...] in OV> 08/04/23 1323 DD/ 1355 TD/TT: Management Trainee Marketing: [facility] External Provider IMG BI PROCEDURES Final Result * (ABNORMAL) Lipid Panel, Standard (06/07/2023 11:34 AM EDT) Triglycerides 125 <150 mg/dL [facility] Comment:Desirable Triglyceri de: less than 150 mg/dLBorderline High Triglyceride 150-199 mg/dLHigh Triglyceride: 200-499 mg/dLVery High Triglyceride: greater than or equal to 5OO mg/dL Cholesterol 225(H) <200 mg/dL [facility] Comment:Desirable Cholestero l: less than 200 mg/dLBorderline High Cholesterol: 200-239 mg/dLHigh Cholesterol: greater than 239 mg/dL LDL Cholesterol Calculated 141(H) <100 mg/dL [facility] Comment:Desirable LDL: less than 100 mg/dLNear Optimal/Above Optimal LDL: 110- 129 mg/dLBorderline High LDL: 130-159 mg/dLHigh LDL: 160-189 mg/dLVery High LDL: greater than or equal to 190 mg/dL HDL Cholesterol 59 >40 mg/dL [facility] Comment:Desirable HDL: great er than 40 mg/dL Note: This HDL assay may give artificially low results in patients with liver disease. Blood Venous blood specimen / Unknown 06/07/2023 11:34 AM EDT 06/07/2023 1:12 PM EDT Beth Blanco CADASTRAL SURVEYOR LAB BLOOD ORDERABLES Final Resul t [facility] [address] [place] [phone] * Diabetes Eye Exam (03/29/2023) Eye Exam Normal Normal 03/29/2023 Edmund Valentino MD HEALTH MAINTENANCE Final Result * Colonoscopy (05/06/2021) Colonoscopy Normal Normal Narrative Rita Jimenez - 05/06/2021 Recommended 5 year follow up Historical Provider HEALTH MAINTENANCE Final Result from Last 3 Months or Most Recently Relevant to Health Maintenance Insurance [facility] - [facility] Care Teams Catering Manager Relationship Specialty Start Date End Date Name, MD Edmund [address] [place] [phone] PCP - General Family Medicine 04/04/15
--- OUTSIDE RECORDS SUMMARY | 2024-05-17 14:20 | XMS_ITS | Encounter Summary ---
Author Organization [employer] [facility] Address [address] [place] [address] Care Team Providers Care Calciner Operator Name Role Phone Name, Edmund HERNANDEZ Primary Care Provider Unavailabl e Encounter Details Date Type Department Care Team Description 05/31/2014 Distribution Engineering Technologist Report Medical Records [address] [place] [phone] Suresh Short MD Social History Tobacco Use [...] on filedocumented in this encounter Care Teams Calciner Operator Relationship Specialty Start Date End Date Name, MD Edmund PCP - General Internal Medicine 01/28/11 documented as of this encounter
--- OUTSIDE RECORDS SUMMARY | 2024-05-17 14:20 | XMS_ITS | Encounter Summary ---
Author Organization [employer] [facility] Address [address] [place] [address] Care Team Providers Care Microbiological Lab Technician Name Role Phone Name, Edmund HERNANDEZ Primary Care Provider Unavailabl e Encounter Details Date Type Department Care Team Description 05/17/2011 Release of Information Medical Records [address] [place] [phone] Abstract, Provider Social History Tobacco Use Types [...] on filedocumented in this encounter Care Teams Microbiological Lab Technician Relationship Specialty Start Date End Date Name, MD Edmund PCP - General Internal Medicine 01/28/11 documented as of this encounter
--- OUTSIDE RECORDS SUMMARY | 2024-05-17 14:20 | XMS_ITS | Encounter Summary ---
Author Organization [employer] [facility] Address [address] [place] [address] Care Team Providers Care Line Builder Name Role Phone Name, Edmund HERNANDEZ Primary Care Provider Unavailabl e Encounter Details Date Type Department Care Team Description 07/12/2011 Nuclear Equipment Test Engineer Report Medical Records [address] [place] [address] Rehab., [facility] Social History Tobacco Use Types Packs/Day [...] filedocumented in this encounter Care Teams Line Builder Relationship Specialty Start Date End Date Name, MD Edmund PCP - General Internal Medicine 01/28/11 documented as of this encounter
--- OUTSIDE RECORDS SUMMARY | 2024-05-17 14:21 | XMS_ITS | Encounter Summary ---
Author Organization [employer] Address 75 [facility] 7t [place] [address] Care Team Providers Care Audio/Visual Manager Name Role Phone Name, Edmund HERNANDEZ Primary Care Provider [phone] Reason for Visit * Reason Comments Med Refill Encounter Details Date Type Department Care Team ([facility] st Contact Info) Description 01/19/2023 Refill [facility] [address] [place], [place] [phone] Name, MD Edmund [address] [place] [address] Social History Tobacco Use Types Packs/Day Years [...] AM EDT Office Visit [facility] MEDICINE [address] [place] [address] NameEdmund MD [address] [place] [address] documented as of this encounter Visit Diagnoses Not on filedocumented in this encounter Care Teams Audio/Visual Manager Relationship Specialty Start Date End Date NameEdmund MD [address] [place] [address] PCP - General Family Medicine 04/04/15 documented as of this encounter
--- OUTSIDE RECORDS SUMMARY | 2024-05-17 14:21 | XMS_ITS | Clinical Summary ---
Author Organization [facility] Address [address] [place] [address] Phone Care Team Providers Care Project Management Consultant Name Role Phone Name, Edmund HERNANDEZ Primary Care Provider [phone] Allergies Active Allergy Reactions Criticality Noted Date Comments Iodinated Contrast Media Nausea And Vomiting,Other,Swellin g 03/06/2008 Throat closing Medical History Medical History Date Comments Diabetes mellitus ([facility]) Disease of thyroid gland Tachycardia Asthma Arthritis [...] mmol/L LAB CHEMISTRY METHOD 02/05/2024 3:56 PM [facility] Potassium 4.3 3.5 - 5.5 mmol/L LAB CHEMISTRY METHOD 02/05/2024 3:56 PM [facility] Chloride 110 96 - 110 mmol/L LAB CHEMISTRY METHOD 02/05/2024 3:56 PM [facility] CO2 26 21 - 32 mmol/L LAB CHEMISTRY METHOD 02/05/2024 3:56 PM [facility] Anion Gap 8 3 - 11 LAB CHEMISTRY METHOD 02/05/2024 3:56 PM [facility] Glucose 113(H) 70 - 100 mg/dL LAB CHEMISTRY METHOD 02/05/2024 3:56 PM [facility] BUN 12 5 - 25 mg/dL LAB CHEMISTRY METHOD 02/05/2024 3:56 PM [facility] Creatinine 0.76 0.50 - 1.10 mg/dL LAB CHEMISTRY METHOD 02/05/2024 3:56 PM [facility] eGFR 89 >=60 mL/min/1. 73m2 LAB CHEMISTRY METHOD 02/05/2024 3:56 PM [facility] Comment:Calculation based on the??Chronic Kidney Disease Epidemiology Collaboration (CKD-EPI) equation refit??without adjustment for race. BUN/Creatinine Ratio 15.8 LAB CHEMISTRY METHOD 02/05/2024 3:56 PM [facility] Calcium 10.2 8.5 - 10.5 mg/dL LAB CHEMISTRY METHOD 02/05/2024 3:56 PM [facility] AST (SGOT) 25 10 - 42 unit/L LAB CHEMISTRY METHOD 02/05/2024 3:56 PM [facility] ALT (SGPT) 31 10 - 60 unit/L LAB CHEMISTRY METHOD 02/05/2024 3:56 PM [facility] Alkaline Phosphatase 112 42 - 121 unit/L LAB CHEMISTRY METHOD 02/05/2024 3:56 PM [facility] Total Protein 7.1 6.0 - 8.0 g/dL LAB CHEMISTRY METHOD 02/05/2024 3:56 PM [facility] Albumin 3.8 3.2 - 5.0 g/dL LAB CHEMISTRY METHOD 02/05/2024 3:56 PM [facility] Total Bilirubin 0.4 0.0 - 1.4 mg/dL LAB CHEMISTRY METHOD 02/05/2024 3:56 PM [facility] Blood Venous blood specimen / Unknown Venipuncture / Unknown 02/05/2024 3:05 PM EST 02/05/2024 3:30 PM EST us Bowen Juarez MD LAB BLOOD ORDERABLES Nazanin l Result [facility] [address] [place] [address], * DX MAMMO INCL CAD BI (11/11/2016 [...] Most Recently Relevant to Health Maintenance Insurance [facility] MEDICARE Member Subscriber Plan / Payer (Ef fective 2020-Present) Name:Pippa Camilo I Relation to Subscriber:Self Name:Pippa Camilo I Payer ID:[id number] Group ID:[id number] Type:Not on file Address: [facility] [address] [id number] Care Teams Project Management Consultant Relationship Specialty Start Date End Date Name, MD Edmund [address] [place], [place] PCP - General Internal Medicine 02/07/08
--- OUTSIDE RECORDS SUMMARY | 2024-05-17 14:21 | XMS_ITS | Encounter Summary ---
Author Organization [employer] Address 75 [facility] 7 [place] [address] Care Team Providers Care Welder Helper Name Role Phone Name, Edmund HERNANDEZ Primary Care Provider [phone] Reason for Visit * Reason Comments Med Refill Encounter Details Date Type Department Care Team ([facility] st Contact Info) Description 10/04/2023 Refill [facility] MEDICINE [address] [place], [place] [phone] Name, MD Edmund [address] [place] [address] Mild intermittent asthma, unspecified whether complicated Social [...] Description 07/17/2024 10:00 AM EDT Office Visit [facility] MEDICINE [address] [place] [address] Name, MD Edmund [address] [place] [address] documented as of this encounter Visit Diagnoses Diagnosis Mild intermittent asthma, unspecified whether complicated documented in this encounter Additional Health Concerns Assessment Noted Time PHQ-9 Depression Total Score: 0 07/29/19 24 9:26 AM EDT documented as of this encounter Care Teams Welder Helper Relationship Specialty Start Date End Date Name, MD Edmund [address] [place] [address] PCP - General Family Medicine 04/04/15 documented as of this encounter
--- OUTSIDE RECORDS SUMMARY | 2024-05-17 14:21 | XMS_ITS | Encounter Summary ---
Author Organization [employer] Address 75 [facility] 7 [place] [address] Care Team Providers Care Paper Slitter Name Role Phone Name, Edmund HERNANDEZ Primary Care Provider Reason for Visit * Reason Comments Med Refill Encounter Details Date Type Department Care Team ([facility] st Contact Info) Description 09/23/[address] [facility] MEDICINE [address] [place], [place] [phone] Name, MD Edmund [address] [place] [address] Mild intermittent asthma, unspecified whether complicated Social [...] 07/17/2024 10:00 AM EDT Office Visit [facility] MED[facility] [address] [place] [address] Name, MD Edmund [address] [place] [address] documented as of this encounter Visit Diagnoses Diagnosis Mild intermittent asthma, unspecified whether complicated documented in this encounter Additional Health Concerns Assessment Noted Time PHQ-9 Depression Total Score: 0 07/29/19 24 9:26 AM EDT documented as of this encounter Care Teams Paper Slitter Relationship Specialty Start Date End Date Name, MD Edmund [address] [place] [address] PCP - General Family Medicine 04/04/15 documented as of this encounter
--- OUTSIDE RECORDS SUMMARY | 2024-05-17 14:21 | XMS_ITS | Encounter Summary ---
Author Organization [employer] Address 75 [facility] 7 [place] [address] Care Team Providers Care C Java Developer Name Role Phone Name, Edmund HERNANDEZ Primary Care Provider [phone] Reason for Visit * Reason Comments Acupuncture Encounter Details Date Type Department Care Team ([facility] Contact Info) Description 04/19/2024 10:45 AM EST Office Visit [facility] MEDICINE [address] [place], [place] [phone] Alyssa Sandra MD [address] [place] [address] Chronic bilateral low back pain with left-sided [...] the past 12 months, has t he [employer], gas, oil or water [employer]ensing threatened to shut off services in your [...] Description 07/17/2024 10:00 AM EDT Office Visit [facility] MEDICINE [address] [place] [address] Name, MD Edmund [address] [place] [address] documented as of this encounter Visit Diagnoses Diagnosis Chronic bilateral low back pain with left-sided sciatica- Primary documented in this encounter Additional Health Concerns Assessment Noted Time PHQ-9 Depression Total Score: 0 07/29/19 24 9:26 AM EDT documented as of this encounter Care Teams C Java Developer Relationship Specialty Start Date End Date Name, MD [place] [address] PCP - General Family Medicine 04/04/15 documented as of this encounter
--- OUTSIDE RECORDS SUMMARY | 2024-05-17 14:21 | XMS_ITS | Encounter Summary ---
Author Organization [employer] Address 75 [facility] 7t [place] [address] Care Team Providers Care Propellant Charge Zone Assembler Name Role Phone Name, Edmund HERNANDEZ Primary Care Provider [phone] Reason for Visit * Reason Comments Med Refill Encounter Details Date Type Department Care Team ([facility] st Contact Info) Description 06/24/[address] [facility] MEDICINE [address] [place], [place] [phone] Beth Blanco, SALVATORE [address] [place] [address] Social History Tobacco Use Types Packs/Day Years [...] EDT Office Visit [facility] MEDICINE [address] [place] [address] NameEdmund MD [address] [place] [address] documented as of this encounter Visit Diagnoses Not on filedocumented in this encounter Care Teams Propellant Charge Zone Assembler Relationship Specialty Start Date End Date Edmund Valentino MD [address] [place] [address] PCP - General Family Medicine 04/04/15 documented as of this encounter
--- OUTSIDE RECORDS SUMMARY | 2024-05-17 14:21 | XMS_ITS | Encounter Summary ---
Author Organization [employer] [facility] Address [address] [place] [address] 7 [place] [address] Care Team Providers Care Commissions Manager Name Role Phone Name, Edmund HERNANDEZ Primary Care Provider [phone] Reason for Visit * Reason Onset Date Comments Pre OP 06/30/2022 Encounter Details Date Type Department Care Team (Late st Contact Info) Description 06/30/2022 Telephone [facility] MEDICINE [address] [place], [place] [phone] Name, MD Edmund [address] [place] [address] Pre OP Social History Tobacco Use Types [...] repair on 09/22/[address] [place] [facility]. Pt will be under general and popliteal [...] 2:33 PM EDT Tc from Bill from [facility] orthopedics returning call for PRE-OP appt , please see notes also stated surgeon will place order for EKG. Please contact at [phone] * Telephone Encounter - Julee Chung - 06/30/2022 1:46 PM EDT TC from Bill from [facility] [place] a PRE-OP Location: [address] Procedure: tendon repair Date of procedure: 09/22/22 @ 11:30am Labs: yes Ekg: yes Anesthesia Type : general and popliteal block Surgeon Name: donna tomlinson documented in this encounter Plan of Treatment Upcoming Encounters Date Type Department Care Team (Late st Contact Info) Description 07/17/2024 10:00 AM EDT Office Visit [facility] MEDICINE [address] [place] [address] Name, MD Edmund [address] [place] [address] documented as of this encounter Visit Diagnoses Not on filedocumented in this encounter Care Teams Commissions Manager Relationship Specialty Start Date End Date Name, MD Edmund [address] [place] [address] PCP - General Family Medicine 04/04/15 documented as of this encounter
--- OUTSIDE RECORDS SUMMARY | 2024-05-17 14:21 | XMS_ITS | Encounter Summary ---
Author Organization [employer] [facility] Address [address] [place] [address] 7 [place] [address] Care Team Providers Care Director Educational Radio Name Role Phone Name, Edmund HERNANDEZ Primary Care Provider Encounter Details Date Type Department Care Team (Late Contact Info) Description 08/19/2022 Abstract [facility] MEDICINE [address] [place] [address] [phone] NameEdmund MD [address] [place] [address] Social History Tobacco Use Types Packs/Day Years [...] Description 07/17/2024 10:00 AM EDT Office Visit [facility] MEDICINE [address] [place] [address] [phone] Edmund Valentino MD [address] [place] [address] [phone] documented as of this encounter Visit Diagnoses Not on filedocumented in this encounter Care Teams Director Educational Radio Relationship Specialty Start Date End Date Name, MD Edmund [address] [place] [address] PCP - General Family Medicine 04/04/15 documented as of this encounter
--- OUTSIDE RECORDS SUMMARY | 2024-05-17 14:21 | XMS_ITS | Encounter Summary ---
Author Organization [employer] [facility] Address [address] [place] [address] Care Team Providers Care Mannequin Coloring Artist Name Role Phone Name, Edmund HERNANDEZ Primary Care Provider Unavailabl e Encounter Details Date Type Department Care Team Description 01/21/2015 Business Doc Medical Records [address] [place] [address] Abstract, Provider Social History Tobacco Use Types [...] on filedocumented in this encounter Care Teams Mannequin Coloring Artist Relationship Specialty Start Date End Date Name, MD Edmund PCP - General Internal Medicine 01/28/11 documented as of this encounter
--- OUTSIDE RECORDS SUMMARY | 2024-05-17 14:21 | XMS_ITS | Encounter Summary ---
Author Organization [employer] [facility] Address 75 [facility] 7 [place] [address] Care Team Providers Care General Education Instructor Name Role Phone Name, Edmund HERNANDEZ Primary Care Provider [phone] Encounter Details Date Type Department Care Team ([facility] Contact Info) Description 09/07/2022 Abstract [facility] MEDICINE [address] [place] [address] [phone] Name, MD Edmund [address] [place] [address] Social History Tobacco Use Types Packs/Day Years [...] Upcoming Encounters Date Type Department Care Team ([facility] Contact Info) Description 07/17/2024 10:00 AM EDT Office Visit [facility] MEDICINE [address] [place] [address] [phone] Name, MD Edmund [facility] [place] [address] documented as of this encounter Procedures Procedure Name Priority Date/Time Associated Diagnosis Comments COLONOSCOPY Routine 05/06/2021 documented in this encounter Results * Colonoscopy (05/06/2021) Colonoscopy Normal Normal Narrative Rita Jimenez - 05/06/2021 Recommended 5 year follow up us Historical Provider HEALTH MAINTENANCE Final Result documented in this encounter Visit Diagnoses Not on filedocumented in this encounter Care Teams General Education Instructor Relationship Specialty Start Date End Date Name, MD Edmund [facility] [place] [address] PCP - General Family Medicine 04/04/15 documented as of this encounter
--- OUTSIDE RECORDS SUMMARY | 2024-05-17 14:21 | XMS_ITS | Encounter Summary ---
Author Organization [employer] Address 75 [facility] 7t [place] [address] Care Team Providers Care Air Chief Marshal Name Role Phone Name, Edmund HERNANDEZ Primary Care Provider [phone] Reason for Visit * Reason Onset Date Comments Appointment Request 05/16/2023 Encounter Details Date Type Department Care Team ([facility] st Contact Info) Description 05/16/2023 Telephone [facility] MEDICINE [address] [place], [place] [phone] Name, MD Edmund [address] [place], [place] [phone] Appointment Request Social History Tobacco Use Types [...] to cancel and reschedule appt for 05/15 film writer did cancel per patients request documented in this encounter Plan of Treatment Upcoming Encounters Date Type Department Care Team (Late st Contact Info) Description 07/17/2024 10:00 AM EDT Office Visit [facility] MEDICINE [address] [place] [address] Name, MD Edmund [address] [place] [address] documented as of this encounter Visit Diagnoses Not on filedocumented in this encounter Care Teams Air Chief Marshal Relationship Specialty Start Date End Date Name, MD Edmund [address] [place] [address] PCP - General Family Medicine 04/04/15 documented as of this encounter
--- OUTSIDE RECORDS SUMMARY | 2024-05-17 14:21 | XMS_ITS | Encounter Summary ---
Author Organization [employer] Address 75 [facility] 7t [place] [address] Care Team Providers Care Waiter/Waitress Counter Name Role Phone Name, Edmund HERNANDEZ Primary Care Provider [phone] Reason for Visit * Reason Comments Med Refill Encounter Details Date Type Department Care Team ([facility] st Contact Info) Description 05/06/2023 Refill [facility] MEDICINE [address] [place], [place] [phone] Name, MD Edmund [address] [place] [address] Social History Tobacco Use Types Packs/Day Years [...] 10:00 AM EDT Office Visit [facility] MEDICINE [address] [place] [address] NameEdmund MD [address] [place] [address] documented as of this encounter Visit Diagnoses Not on filedocumented in this encounter Care Teams Waiter/Waitress Counter Relationship Specialty Start Date End Date Edmund Valentino MD [address] [place] [address] PCP - General Family Medicine 04/04/15 documented as of this encounter
--- OUTSIDE RECORDS SUMMARY | 2024-05-17 14:21 | XMS_ITS | Encounter Summary ---
Author Organization [employer] [facility] Address 75 [facility] 7 [place] [address] Care Team Providers Care Medical Historian Name Role Phone Name, Edmund HERNANDEZ Primary Care Provider [phone] Encounter Details Date Type Department Care Team ([facility] Contact Info) Description 09/02/2022 Abstract [facility] MEDICINE [address] [place] [address] [phone] Name, MD Edmund [address] [place] [address] Social History Tobacco Use Types Packs/Day Years [...] Upcoming Encounters Date Type Department Care Team ([facility] Contact Info) Description 07/17/2024 10:00 AM EDT Office Visit [facility] MEDICINE [address] [place] [address] [phone] Name, MD Edmund [address] [place] [address] documented as of this encounter Visit Diagnoses Not on filedocumented in this encounter Care Teams Medical Historian Relationship Specialty Start Date End Date Name, MD Edmund [address] [place] [address] PCP - General Family Medicine 04/04/15 documented as of this encounter
--- OUTSIDE RECORDS SUMMARY | 2024-05-17 14:21 | XMS_ITS | Encounter Summary ---
Author Organization [employer] Address 75 [facility] 7 [place] [address] Care Team Providers Care Special Forces Communications Sergeant Name Role Phone Name, Edmund HERNANDEZ Primary Care Provider [phone] Reason for Visit * Reason Comments Med Refill Encounter Details Date Type Department Care Team ([facility] st Contact Info) Description 01/09/2024 Refill [facility] MEDICINE [address] [place], [place] [phone] Name, MD Edmund [address] [place] [address] Social History Tobacco Use Types Packs/Day Years [...] Description 07/17/2024 10:00 AM EDT Office Visit [facility] MEDICINE [address] [place] [address] Name, MD Edmund [address] [place] [address] documented as of this encounter Visit Diagnoses Not on filedocumented in this encounter Additional Health Concerns Assessment Noted Time PHQ-9 Depression Total Score: 0 07/29/19 24 9:26 AM EDT documented as of this encounter Care Teams Special Forces Communications Sergeant Relationship Specialty Start Date End Date Name, MD Edmund [address] [place] [address] PCP - General Family Medicine 04/04/15 documented as of this encounter
--- OUTSIDE RECORDS SUMMARY | 2024-05-17 14:21 | XMS_ITS | Encounter Summary ---
Author Organization [employer] Address 75 [facility] 7t [place] [address] Care Team Providers Care Multiple Sclerosis Nurse Name Role Phone Name, Edmund HERNANDEZ Primary Care Provider [phone] Reason for Visit * Reason Comments Med Refill Encounter Details Date Type Department Care Team ([facility] st Contact Info) Description 12/30/2022 Refill [facility] MED & PEDS [address] [place], [place] [phone] Name, MD Edmund [address] [place] [address] Social History Tobacco Use Types Packs/Day Years [...] Description 07/17/2024 10:00 AM EDT Office Visit [facility] MEDICINE [address] [place] [address] NameEdmund MD [address] [place] [address] documented as of this encounter Visit Diagnoses Not on filedocumented in this encounter Care Teams Multiple Sclerosis Nurse Relationship Specialty Start Date End Date NameEdmund MD [address] [place] [address] PCP - General Family Medicine 04/04/15 documented as of this encounter
--- OUTSIDE RECORDS SUMMARY | 2024-05-17 14:21 | XMS_ITS | Encounter Summary ---
Author Organization [employer] Address 75 [facility] 7 [place] [address] Care Team Providers Care Superintendent Of Generation Name Role Phone Name, Edmund HERNANDEZ Primary Care Provider [phone] Reason for Visit * Reason Comments Diabetes Encounter Details Date Type Department Care Team ([facility] st Contact Info) Description 04/19/2024 9:45 AM EST Office Visit [facility] [address] [place] [address] [phone] Name, MD Edmund [address] [place] [address] Type 2 diabetes mellitus without complication, without long-term current use of insulin ([facility]) (Primary Dx); Acquired hypothyroidism; Strep throat Social [...] weekly. Blood sugar is normal today and [id number] is 6.6. Review of Systems Constitutional: Negative [...] 0.7 02/10/2024 Albumin, Random Urine W/Creatinine Order: [id number] Status: Final result Visible to patient: Yes [...] 5 MG tablet Blood Glucose Monitoring Suppl ([employer] EcoTouch Verio) w/Device kit USE TO TEST BLOOD SUGAR EVERY DAY 1 kit 0 calcium citrate 333 MG tablet Take 1 tablet (333 mg) by mouth if needed each day (as needed). 90 tablet 2 Diclofenac Sodium 1 % gel APPLY 1 TO 3 GRAMS TO AFFECTED AREA THREE TIMES A DAY TO FOUR TIMES A [id number] g 1 FreeStyle lancets USAR TO TEST [...] complication, without long-term current use of insulin ([facility]) Comments: Continue current dose of Trulicity. I [...] Description 07/17/2024 10:00 AM EDT Office Visit [facility] [address] [place] [address] Chelsy, MD Edmund [address] [place] [address] documented as of this encounter Procedures Procedure Name Priority Date/Time Associated Diagnosis Comments TSH W/REFLEX TO FT4 Routine 04/19/2024 10:25 AM EST Acquired hypothyroidism POCT GLUCOSE Routine 04/19/2024 9:55 AM EST Type 2 diabetes mellitus without complication, without long-term current use of insulin ([facility]) documented in this encounter Results * TSH W/Reflex to FT4 (04/19/2024 10:25 AM EST) TSH reflex Free T4 2.19 0.32 - 4.0 uIU/mL [facility] Blood Venous blood specimen / Unknown 04/19/2024 10:25 AM EST 04/19/2024 11:36 AM EST us Edmund Valentino MD LAB BLOOD ORDERABLES Final Resul t [facility] [address] [place] [address] [phone] * POCT Glucose (04/19/2024 9:55 AM [...] complication, without long-term current use of insulin ([facility])- Primary Acquired hypothyroidism Unspecified hypothyroidism Strep throat Streptococcal sore throat documented in this encounter Additional Health Concerns Assessment Noted Time PHQ-9 Depression Total Score: 0 07/29/19 24 9:26 AM EDT documented as of this encounter Care Teams Superintendent Of Generation Relationship Specialty Start Date End Date Name, MD Edmund [address] [place] [address] PCP - General Family Medicine 04/04/15 documented as of this encounter
--- OUTSIDE RECORDS SUMMARY | 2024-05-17 14:21 | XMS_ITS | Encounter Summary ---
Author Organization [employer] [facility] Address [address] [place] [address] 7 [place] [address] Care Team Providers Care Clinical Science Consultant Name Role Phone Name, Edmund HERNANDEZ Primary Care Provider [phone] Encounter Details Date Type Department Care Team (Late Contact Info) Description 07/30/2022 Abstract [facility] [address] [place] [address] [phone] NameEdmund MD [address] [place] [address] Social History Tobacco Use Types Packs/Day Years [...] Description 07/17/2024 10:00 AM EDT Office Visit [facility] [address] [place] [address] [phone] Edmund Valentino MD [address] [place] [address] [phone] documented as of this encounter Visit Diagnoses Not on filedocumented in this encounter Care Teams Clinical Science Consultant Relationship Specialty Start Date End Date Name, MD Edmund [address] [place] [address] PCP - General Family Medicine 04/04/15 documented as of this encounter
--- OUTSIDE RECORDS SUMMARY | 2024-05-17 14:21 | XMS_ITS | Encounter Summary ---
Author Organization [employer] Address 75 [facility] 7 [place] [address] Care Team Providers Care Hydraulic Barker Operator Name Role Phone Name, Edmund HERNANDEZ Primary Care Provider [phone] Reason for Visit * Reason Comments Med Refill Encounter Details Date Type Department Care Team ([facility] st Contact Info) Description 01/06/2024 Refill [facility] [address] [place], [place] [phone] Beth Blanco NP [address] [place] [address] Social History Tobacco Use Types Packs/Day Years [...] Description 07/17/2024 10:00 AM EDT Office Visit [facility] [address] [place] [address] Name, MD Edmund [address] [place] [address] documented as of this encounter Visit Diagnoses Not on filedocumented in this encounter Additional Health Concerns Assessment Noted Time PHQ-9 Depression Total Score: 0 07/29/19 24 9:26 AM EDT documented as of this encounter Care Teams Hydraulic Barker Operator Relationship Specialty Start Date End Date Name, MD Edmund [address] [place] [address] PCP - General Family Medicine 04/04/15 documented as of this encounter
== END 2024-05-17 11:57 | disposition home or self-care (01) ==
LOC: HO.HHCX 11:56
PROVIDERS: Visit Provider Nurse Practitioner
DX: R05.9 Cough, unspecified (principal)
CPT/HCPCS: 71046

== ENCOUNTER → 2024-05-17 11:56 | Outpatient (BNV) | payer OTHER, SELFPAY | PROVIDERS: Visit Provider Radiology Diagnostic Radiology | DX: R05.3 Chronic cough (principal) | CPT/HCPCS: 71046 ==

== ENCOUNTER 2024-07-04 08:23 | Outpatient (AMB) | payer OTHER, SELFPAY ==
--- OUTSIDE RECORDS SUMMARY | 2024-07-04 08:33 | XMS_ITS | Encounter Summary ---
Author Organization [facility] Address [address] [place] [address] Care Team Providers Care Police Sergeant Precinct Name Role Phone Community, Pcp Primary Care Provider Unavailabl e Edmund Valentino MD Primary Care Provider Unavailabl e Reason for Visit * Reason Onset Date Comments Orders Call 01/06/2011 Encounter Details Date Type Department Care Team Description 01/06/2011 Telephone Adult Medicine [address] [address] Name, MD Edmund Orders Call Social History Tobacco Use Types Packs/Day Years Used Date Smoking Tobacco: Former Alcohol Use Standard Drinks/Week Comments No 0 (1 standard drink = 0.6 oz pur e alcohol) Sex Assigned at Date Recorded Not on file documented as of this encounter Miscellaneous Notes * Telephone Encounter - Ember Marse R.N. - 01/06/2011 4:00 PM EST Gricelda will call pt and let her know that she can wait until jan 28 but if insurance does not go through at that time. If she does not have insurance in January she should seek alternative health care, at [facility] or at the ed for any acute [...] She has MMM [employer] HMO coverage of [place]; this coverage is only good in [place]. It will only cover the patient at ER. I spoke with patient yesterday afternoon and explained, will need to cancel this coverage in order to be able to continue care at [facility]. Should patient call this month; coverage will [...] on filedocumented in this encounter Care Teams Police Sergeant Precinct Relationship Specialty Start Date End Date Community, Pcp PCP - General Internal Medicine 01/05/11 01/27/11 Name, MD Edmund PCP - General Internal Medicine 01/28/11 documented as of this encounter
--- OUTSIDE RECORDS SUMMARY | 2024-07-04 08:33 | XMS_ITS | Encounter Summary ---
Author Organization [facility] Address [address] [place] [address] Care Team Providers Care Director Of Promotions Name Role Phone Name, Edmund HERNANDEZ Primary Care Provider Unavailabl e Encounter Details Date Type Department Care Team Description 03/16/2011 Business Doc Medical Records [address] [place] [address] Abstract, Provider Social History Tobacco Use Types [...] in this encounter Care Teams Director Of Promotions Relationship Specialty Start Date End Date Name, MD Edmund PCP - General Internal Medicine 01/28/11 documented as of this encounter
--- OUTSIDE RECORDS SUMMARY | 2024-07-04 08:33 | XMS_ITS | Encounter Summary ---
Author Organization [employer] [facility] Address [address] [place] [address] Care Team Providers Care Call Worker Name Role Phone Name, Edmund HERNANDEZ Primary Care Provider Unavailabl e Encounter Details Date Type Department Care Team Description 11/15/2012 Business Doc Medical Records [address] [place] [address] Abstract, Provider Social History Tobacco Use Types [...] on filedocumented in this encounter Care Teams Call Worker Relationship Specialty Start Date End Date Name, MD Edmund PCP - General Internal Medicine 01/28/11 documented as of this encounter
--- OUTSIDE RECORDS SUMMARY | 2024-07-04 08:33 | XMS_ITS | Encounter Summary ---
Author Organization [facility] Address [address] [place] [address] Care Team Providers Care Pie Baker Name Role Phone Community, Pcp Primary Care Provider Unavailjose e Edmund Valentino MD Primary Care Provider Unavailjose e Encounter Details Date Type Department Care Team Description 01/11/2011 Transfer Records Medical Records [address] [place] [address] Abstract, Provider Social History Tobacco Use Types [...] on filedocumented in this encounter Care Teams Pie Baker Relationship Specialty Start Date End Date Community, Pcp PCP - General Internal Medicine 01/05/11 01/27/11 Edmund Valentino MD PCP - General Internal Medicine 01/28/11 documented as of this encounter
--- OUTSIDE RECORDS SUMMARY | 2024-07-04 08:33 | XMS_ITS | Encounter Summary ---
Author Organization [facility] Address [address] [place] [address] Care Team Providers Care Pss Delivery Professional Name Role Phone Name, Edmund HERNANDEZ Primary Care Provider Unavailabl e Encounter Details Date Type Department Care Team Description 01/01/2013 Transfer Records Medical Records [address] [place] [address] Abstract, Provider Social History Tobacco Use Types [...] on filedocumented in this encounter Care Teams Pss Delivery Professional Relationship Specialty Start Date End Date Name, MD Edmund PCP - General Internal Medicine 01/28/11 documented as of this encounter
--- OUTSIDE RECORDS SUMMARY | 2024-07-04 08:33 | XMS_ITS | Encounter Summary ---
Author Organization [facility] Address [address] [place] [address] Care Team Providers Care Principal Automation Engineer Name Role Phone Name, Edmund HERNANDEZ Primary Care Provider Unavailabl e Encounter Details Date Type Department Care Team Description 06/28/2011 Chemical Process Equipment Operator Report Medical Records [address] [place] [address] Rehab., [facility] Social History Tobacco Use Types Packs/Day [...] on filedocumented in this encounter Care Teams Principal Automation Engineer Relationship Specialty Start Date End Date Name, MD Edmund PCP - General Internal Medicine 01/28/11 documented as of this encounter
--- OUTSIDE RECORDS SUMMARY | 2024-07-04 08:33 | XMS_ITS | Encounter Summary ---
Author Organization [employer] [facility] Address [address] [place] [address] Care Team Providers Care Registered Private Duty Nurse Name Role Phone Name, Edmund HERNANDEZ Primary Care Provider Unavailabl e Encounter Details Date Type Department Care Team Description 07/08/2011 Hospital Medical Records [address] [place] [address] Karsten Christian MD [address] [place] [address] Social History Tobacco Use Types Packs/Day Years [...] on filedocumented in this encounter Care Teams Registered Private Duty Nurse Relationship Specialty Start Date End Date Name, MD Edmund PCP - General Internal Medicine 01/28/11 documented as of this encounter
--- OUTSIDE RECORDS SUMMARY | 2024-07-04 08:33 | XMS_ITS | Encounter Summary ---
Author Organization [employer] Address 75 [facility] 7 [place] [address] Care Team Providers Care Two Way Radio Technician Name Role Phone Name, Edmund HERNANDEZ Primary Care Provider [phone] Encounter Details Date Type Department Care Team (Late Contact Info) Description 05/12/2022 Orders Only [facility] & [facility] [address] [place], [place] [phone] Sarah Sherwood LPN Social History Tobacco Use [...] Office Visit [facility] [address] [place] [address] Name, MD Edmund [address] [place] [address] documented as of this encounter Procedures Procedure Name Priority Date/Time Associated Diagnosis Comments VASC US LOWER EXTREMITY VENOUS DUPLEX RIGHT Routine 06/11/2022 2:15 PM EDT XR CHEST 2 VIEWS Routine 05/19/2022 5:03 PM EDT documented in this encounter Results * Vascular US lower extremity venous duplex right (06/11/2022 2:15 PM EDT) 06/11/2022 2:15 PM EDT Narrative [facility] - 06/11/2022 3:03 PM EDT ? [facility] ?[address] ?[place] [address] ? Ultrasound Report ? Signed ? Patient: Pippa Camilo I ?MR#: [id number] ? : 1960 ?Acct:[id number] ? Age/Sex: 61 / F ?ADM Date: 06/11/22 ? Loc: HO.US ? Attending Dr: Uli Prakash MD ? Ordering Physician: ULI PRAKASH MD ?? Date of Service: 06/11/22 ?? Procedure(s): US venous duplex LE RT ?? Accession Number(s): [id number] ? cc: ULI PRAKASH MD ? EXAMINATION: [...] 1500 ? DD/ 1415 ? TD/TT: ? Space Systems Operations Superintendent: SK ? Procedure Note Donotuseinterpreter, Image - 06/11/2022 [place] [address] Ultrasound Report Signed Patient: Pippa Camilo IMR#: [id number] : 1960Acct:[id number] Age/Sex: 61 / FADM Date: 06/11/22 Loc: HO.US Attending Dr: Uli Prakash MD Ordering Physician: ULI PRAKASH MD Date of Service: 06/11/22 Procedure(s): US venous duplex LE RT Accession Number(s): [id number] cc: ULI PRAKASH MD EXAMINATION: US VENOUS [...] in OV> 06/11/22 1500 DD/ 1415 TD/TT: Space Systems Operations Superintendent: JOSE us [facility] External Provider CV VASC ULAR PROCEDURES Edited Result - Final [facility] [address] [place] [address] * XR Chest 2 Views (05/19/2022 5:03 PM EDT) Anatomical Region Laterality Modality Chest Radiographic Suzanne ging 05/19/2022 5:03 PM EDT Narrative 05/25/2022 1:42 PM EDT ? [facility] ?[address] ?[place], [place] [address] ?XRay Report ? Signed ? Patient: Renetta Colon,Pippa I ?MR#: [id number] ? : 1960 ?Acct:[id number] ? Age/Sex: 61 / F ?ADM Date: 05/19/22 ? Loc: HO.XRAY ? Attending Dr: Uli Prakash MD ? Ordering Physician: ULI PRAKASH MD ?? Date of Service: 05/19/22 ?? Procedure(s): XR chest 2V ?? Accession Number(s): [id number] ? cc: ULI PRAKASH MD ? EXAMINATION: [...] 1340 ? DD/ 1703 ? TD/TT: ? Space Systems Operations Superintendent: SERGIO ? Procedure Note Joanie, Image - 05/25/[address] [address] XRay Report Signed Patient: Pippa Camilo [facility]#: [id number] : 1960Acct:[id number] Age/Sex: 61 / FADM Date: 05/19/22 Loc: [facility] Attending Dr: Uli Prakash MD Ordering Physician: ULI PRAKASH MD Date of Service: 05/19/22 Procedure(s): XR chest 2V Accession Number(s): [id number] cc: ULI PRAKASH MD EXAMINATION: XR CHEST [...] in OV> 05/25/22 1340 DD/ 1703 TD/TT: Space Systems Operations Superintendent: SERGIO [facility] External Provider IMG XR PROCEDURES Edited Result - Final documented in this encounter Visit Diagnoses Not on filedocumented in this encounter Care Teams Two Way Radio Technician Relationship Specialty Start Date End Date Name, MD Edmund [address] [place] [address] PCP - General Family Medicine 04/04/15 documented as of this encounter
--- OUTSIDE RECORDS SUMMARY | 2024-07-04 08:33 | XMS_ITS | Encounter Summary ---
Author Organization [employer] [facility] Address [address] [place] [address] Care Team Providers Care Dry Clipper Tender Name Role Phone Name, Edmund HERNANDEZ Primary Care Provider Unavailabl e Encounter Details Date Type Department Care Team Description 03/05/2011 Oven Roaster Report Medical Records [address] [place] [address] Sherie Guerrero NP Social History Tobacco Use [...] on filedocumented in this encounter Care Teams Dry Clipper Tender Relationship Specialty Start Date End Date Name, MD Edmund PCP - General Internal Medicine 01/28/11 documented as of this encounter
--- OUTSIDE RECORDS SUMMARY | 2024-07-04 08:33 | XMS_ITS | Encounter Summary ---
Author Organization [employer] Address [address] [facility] 7t [place] [address] Care Team Providers Care Middle School Band Teacher Name Role Phone Name, Edmund HERNANDEZ Primary Care Provider [phone] Reason for Visit * Reason Comments Med Refill Encounter Details Date Type Department Care Team ([facility] st Contact Info) Description 02/10/2024 Refill [facility]EDS [address] [place], [place] [phone] Name, MD Edmund [address] [place] [address] Social History Tobacco Use Types Packs/Day Years [...] 10:00 AM EDT Office Visit [facility] [address] [place] [address] Name, MD Edmund [address] [place] [address] documented as of this encounter Visit Diagnoses Not on filedocumented in this encounter Additional Health Concerns Assessment Noted Time PHQ-9 Depression Total Score: 0 07/29/19 24 9:26 AM EDT documented as of this encounter Care Teams Middle School Band Teacher Relationship Specialty Start Date End Date Name, MD Edmund [address] [place] [address] PCP - General Family Medicine 04/04/15 documented as of this encounter
--- OUTSIDE RECORDS SUMMARY | 2024-07-04 08:34 | XMS_ITS | Encounter Summary ---
Author Organization [facility] Address [address] [place] [address] Care Team Providers Care Inserter Promotional Item Name Role Phone Edmund Beck MD Primary Care Provider Unavailabl e Reason for Visit * Reason Onset Date Comments Follow-up Appt Unavailable 05/02/2012 Encounter Details Date Type Department Care Team Description 05/02/2012 Telephone Adult Medicine [address] [address] Name, MD Edmund Follow-up Appt Unavailable Social [...] TO LET HER KNOW ABOUT APPT IN [place]. documented in this encounter Plan of Treatment Not on file documented as of this encounter Visit Diagnoses Not on filedocumented in this encounter Care Teams Inserter Promotional Item Relationship Specialty Start Date End Date Name, MD Edmund PCP - General Internal Medicine 01/28/11 documented as of this encounter
--- OUTSIDE RECORDS SUMMARY | 2024-07-04 08:34 | XMS_ITS | Encounter Summary ---
Author Organization [facility] Address [address] [place] [address] Care Team Providers Care Hematologist Oncologist Name Role Phone Name, Edmund HERNANDEZ Primary Care Provider Unavailabl e Encounter Details Date Type Department Care Team Description 09/21/2011 Business Doc Medical Records [address] [place] [address] Abstract, Provider Social History Tobacco Use Types [...] on filedocumented in this encounter Care Teams Hematologist Oncologist Relationship Specialty Start Date End Date Name, MD Edmund PCP - General Internal Medicine 01/28/11 documented as of this encounter
--- OUTSIDE RECORDS SUMMARY | 2024-07-04 08:34 | XMS_ITS | Clinical Summary ---
Author Organization [facility] Address [address] [place] [address] Phone Care Team Providers Care Autism Specialist Name Role Phone Name, Edmund HERNANDEZ Primary Care Provider [phone] Allergies Active Allergy Reactions Criticality Noted Date Comments Iodinated Contrast Media Nausea And Vomiting,Other,Swellin g 03/06/2008 Throat closing Medical History Medical History Date Comments Diabetes mellitus (CMS/HCC V24, CMS/[facility] V28) Disease of thyroid gland Tachycardia Asthma Arthritis [...] Influencers of Health Screening 02/10/2022 RSV Immunization Adult Patients (1 - Risk 60-74 years 1-dose series) 2022 Diabetes: Annual Urine Albumin-Creatinine Ratio (uACR) 02/05/2024 COVID-19 Vaccine (5 - Pfizer risk season) 2024 11/02/2023, 12/11/2020, 04/27/2020, Additional history exists Diabetes: Blood Sugar Control Test (HGBA1C) 06/05/2024 [...] (6 to 64 Years) Completed 07/29/2023, 07/24/2014 Influenza Vaccine Completed 11/02/2023, , 12/08/2018, Additional [...] age to complete this topic Meningococcal B Vaccine Aged Out No l onger eligible based on patient's age to complete [...] mmol/L LAB CHEMISTRY METHOD 02/05/2024 3:56 PM [facility] Potassium 4.3 3.5 - 5.5 mmol/L LAB CHEMISTRY METHOD 02/05/2024 3:56 PM [facility] Chloride 110 96 - 110 mmol/L LAB CHEMISTRY METHOD 02/05/2024 3:56 PM [facility] CO2 26 21 - 32 mmol/L LAB CHEMISTRY METHOD 02/05/2024 3:56 PM [facility] Anion Gap 8 3 - 11 LAB CHEMISTRY METHOD 02/05/2024 3:56 PM [facility] Glucose 113(H) 70 - 100 mg/dL LAB CHEMISTRY METHOD 02/05/2024 3:56 PM [facility] BUN 12 5 - 25 mg/dL LAB CHEMISTRY METHOD 02/05/2024 3:56 PM [facility] Creatinine 0.76 0.50 - 1.10 mg/dL LAB CHEMISTRY METHOD 02/05/2024 3:56 PM [facility] eGFR 89 >=60 mL/min/1. 73m2 LAB CHEMISTRY METHOD 02/05/2024 3:56 PM [facility] Comment:Calculation based on the??Chronic Kidney Disease Epidemiology Collaboration (CKD-EPI) equation refit??without adjustment for race. BUN/Creatinine Ratio 15.8 LAB CHEMISTRY METHOD 02/05/2024 3:56 PM [facility] Calcium 10.2 8.5 - 10.5 mg/dL LAB CHEMISTRY METHOD 02/05/2024 3:56 PM [facility] AST (SGOT) 25 10 - 42 unit/L LAB CHEMISTRY METHOD 02/05/2024 3:56 PM [facility] ALT (SGPT) 31 10 - 60 unit/L LAB CHEMISTRY METHOD 02/05/2024 3:56 PM [facility] Alkaline Phosphatase 112 42 - 121 unit/L LAB CHEMISTRY METHOD 02/05/2024 3:56 PM [facility] Total Protein 7.1 6.0 - 8.0 g/dL LAB CHEMISTRY METHOD 02/05/2024 3:56 PM [facility] Albumin 3.8 3.2 - 5.0 g/dL LAB CHEMISTRY METHOD 02/05/2024 3:56 PM [facility] Total Bilirubin 0.4 0.0 - 1.4 mg/dL LAB CHEMISTRY METHOD 02/05/2024 3:56 PM [facility] Blood Venous blood specimen / Unknown Venipuncture / Unknown 02/05/2024 3:05 PM EST 02/05/2024 3:30 PM EST us Bowen Juarez MD LAB BLOOD ORDERABLES Nazanin l Result [facility] [address] [place] [address], * DX MAMMO INCL CAD BI (11/11/2016 [...] Most Recently Relevant to Health Maintenance Insurance [facility] MEDIC[facility] Member Subscriber Plan / Payer (Ef fective 2020-Present) Name:Pippa Camilo I Relation to Subscriber:Self Name:Pippa Camilo I Payer ID:[id number] Group ID:[id number] Type:Not on file Address: [place] [place] [address] Care Teams Autism Specialist Relationship Specialty Start Date End Date Name, MD Edmund [address] [place], [place] PCP - General Internal Medicine 02/07/08
--- OUTSIDE RECORDS SUMMARY | 2024-07-04 08:34 | XMS_ITS | Encounter Summary ---
Author Organization [facility] Address [address] [place] [address] Care Team Providers Care Nurses Director Name Role Phone Name, Edmund HERNANDEZ Primary Care Provider Unavailabl e Encounter Details Date Type Department Care Team Description 05/31/2016 Pie Maker Report Medical Records [address] [place] [address] Monica Duque [address] [place] [address] Social History Tobacco Use Types Packs/Day Years [...] on filedocumented in this encounter Care Teams Nurses Director Relationship Specialty Start Date End Date Name, MD Edmund PCP - General Internal Medicine 01/28/11 documented as of this encounter
--- OUTSIDE RECORDS SUMMARY | 2024-07-04 08:34 | XMS_ITS | Encounter Summary ---
Author Organization [employer] [facility] Address [address] [place] [address] Care Team Providers Care Protein Specialist Name Role Phone Name, Edmund HERNANDEZ Primary Care Provider Unavailabl e Encounter Details Date Type Department Care Team Description 02/19/2015 Meat Process Worker Report Medical Records [address] [place] [address] Karsten Kohli MD Social History Tobacco Use [...] on filedocumented in this encounter Care Teams Protein Specialist Relationship Specialty Start Date End Date Name, MD Edmund PCP - General Internal Medicine 01/28/11 documented as of this encounter
--- OUTSIDE RECORDS SUMMARY | 2024-07-04 08:34 | XMS_ITS | Encounter Summary ---
Author Organization [employer] [facility] Address [address] [place] [address] Care Team Providers Care Senior Geotechnical Engineer Name Role Phone Name, Edmund HERNANDEZ Primary Care Provider Unavailabl e Reason for Visit * Reason Onset Date Comments TEST RESULTS 05/26/2012 Encounter Details Date Type Department Care Team Description 05/26/2012 Telephone Adult [address] [address] Erin Mcqueen NP TEST RESULTS Social History [...] filedocumented in this encounter Care Teams Senior Geotechnical Engineer Relationship Specialty Start Date End Date Name, MD Edmund PCP - General Internal Medicine 01/28/11 documented as of this encounter
--- OUTSIDE RECORDS SUMMARY | 2024-07-04 08:34 | XMS_ITS | Encounter Summary ---
Author Organization [employer] [facility] Address [address] [place] [address] 7 [place] [address] Care Team Providers Care Optical Instrument Inspector Name Role Phone Name, Edmund HERNANDEZ Primary Care Provider [phone] Encounter Details Date Type Department Care Team (Latest Contact Info) Description 08/26/2020 Abstract [facility] CONVERSIONS Dental, Provider, DDS Social History [...] Visit [facility] MEDICINE [address] [place] [address] Edmund Valentino MD [address] [place] [address] documented as of this encounter Visit Diagnoses Not on filedocumented in this encounter Care Teams Optical Instrument Inspector Relationship Specialty Start Date End Date Edmund Valentino MD [address] [place] [address] PCP - General Family Medicine 04/04/15 documented as of this encounter
--- OUTSIDE RECORDS SUMMARY | 2024-07-04 08:34 | XMS_ITS | Encounter Summary ---
Author Organization [facility] Address [address] [place] [address] Care Team Providers Care Mobile Ui Developer Name Role Phone Name, Edmund HERNANDEZ Primary Care Provider Unavailabl e Encounter Details Date Type Department Care Team Description 05/30/2015 Business Doc Medical Records [address] [place] [address] Abstract, Provider Social History Tobacco Use Types [...] on filedocumented in this encounter Care Teams Mobile Ui Developer Relationship Specialty Start Date End Date Name, MD Edmund PCP - General Internal Medicine 01/28/11 documented as of this encounter
--- OUTSIDE RECORDS SUMMARY | 2024-07-04 08:34 | XMS_ITS | Encounter Summary ---
Author Organization [facility] Address [address] [place] [address] Care Team Providers Care Motorboat Operator Name Role Phone Name, Edmund HERNANDEZ Primary Care Provider Unavailabl e Encounter Details Date Type Department Care Team Description 11/12/2016 Business Doc Medical Records [address] [place] [address] Abstract, Provider Social History Tobacco Use Types [...] on filedocumented in this encounter Care Teams Motorboat Operator Relationship Specialty Start Date End Date Name, MD Edmund PCP - General Internal Medicine 01/28/11 documented as of this encounter
--- OUTSIDE RECORDS SUMMARY | 2024-07-04 08:34 | XMS_ITS | Encounter Summary ---
Author Organization [employer] Address [address] [facility] 7 [place] [address] Care Team Providers Care Cosmetology Instructor Name Role Phone Name, Edmund HERNANDEZ Primary Care Provider [phone] Reason for Visit * Reason Comments Med Refill Encounter Details Date Type Department Care Team ([facility] st Contact Info) Description 01/09/2024 Refill [facility] [address] [place], [place] [phone] Name, MD Edmund [address] [place] [address] Social History Tobacco Use Types Packs/Day Years [...] AM EDT Office Visit [facility] [address] [place] [address] Name, MD Edmund [address] [place] [address] documented as of this encounter Visit Diagnoses Not on filedocumented in this encounter Additional Health Concerns Assessment Noted Time PHQ-9 Depression Total Score: 0 07/29/19 24 9:26 AM EDT documented as of this encounter Care Teams Cosmetology Instructor Relationship Specialty Start Date End Date Name, MD Edmund [address] [place] [address] PCP - General Family Medicine 04/04/15 documented as of this encounter
--- OUTSIDE RECORDS SUMMARY | 2024-07-04 08:34 | XMS_ITS | Encounter Summary ---
Author Organization [employer] [facility] Address [address] [place] [address] Care Team Providers Care Supervisor Metal Fabricating Name Role Phone Edmund Valentino MD Primary Care Provider Unavailabl e Encounter Details Date Type Department Care Team Description 08/30/2013 Orders Only Adult Medicine [address] [address] Name, MD Edmund Social History Tobacco Use [...] filedocumented in this encounter Care Teams Supervisor Metal Fabricating Relationship Specialty Start Date End Date Edmund Valentino MD PCP - General Internal Medicine 01/28/11 documented as of this encounter
--- OUTSIDE RECORDS SUMMARY | 2024-07-04 08:34 | XMS_ITS | Encounter Summary ---
Author Organization [employer] Address [address] [facility] 7t [place] [address] Care Team Providers Care Delivery And Installation Subcontractor Name Role Phone Name, Edmund HERNANDEZ Primary Care Provider [phone] Reason for Visit * Reason Comments Med Refill Encounter Details Date Type Department Care Team ([facility] st Contact Info) Description 01/27/2024 Refill [facility] MEDICINE [address] [place], [place] [phone] Beth Blanco, [place] [address] [place] [address] Social History Tobacco Use Types Packs/Day Years [...] Description 07/17/2024 10:00 AM EDT Office Visit [facility] MEDICINE [address] [place] [address] Name, MD Edmund [address] [place] [address] documented as of this encounter Visit Diagnoses Not on filedocumented in this encounter Additional Health Concerns Assessment Noted Time PHQ-9 Depression Total Score: 0 07/29/19 24 9:26 AM EDT documented as of this encounter Care Teams Delivery And Installation Subcontractor Relationship Specialty Start Date End Date Name, MD Edmund [address] [place] [address] PCP - General Family Medicine 04/04/15 documented as of this encounter
--- OUTSIDE RECORDS SUMMARY | 2024-07-04 08:34 | XMS_ITS | Encounter Summary ---
Author Organization [employer] [facility] Address [address] [place] [address] Care Team Providers Care Lap Grinder Name Role Phone Name, Edmund HERNANDEZ Primary Care Provider Unavailabl e Encounter Details Date Type Department Care Team Description 01/31/2012 Dean Of Graduate Studies Report Medical Records [address] [place] [address] Ni Rolle Social History Tobacco Use Types [...] on filedocumented in this encounter Care Teams Lap Grinder Relationship Specialty Start Date End Date Name, MD Edmund PCP - General Internal Medicine 01/28/11 documented as of this encounter
--- OUTSIDE RECORDS SUMMARY | 2024-07-04 08:34 | XMS_ITS | Encounter Summary ---
Author Organization [employer] Address [address] [facility] 7 [place] [address] Care Team Providers Care Catering Truck Driver Name Role Phone Name, Edmund HERNANDEZ Primary Care Provider [phone] Reason for Visit * Reason Comments Med Refill Encounter Details Date Type Department Care Team ([facility] st Contact Info) Description 01/20/2024 Refill [facility] [address] [place], [place] [phone] Name, MD Edmund [address] [place] [address] Social History Tobacco Use Types Packs/Day Years [...] Office Visit [facility] MEDICINE [address] [place] [address] Name, MD Edmund [address] [place] [address] documented as of this encounter Visit Diagnoses Not on filedocumented in this encounter Additional Health Concerns Assessment Noted Time PHQ-9 Depression Total Score: 0 07/29/19 24 9:26 AM EDT documented as of this encounter Care Teams Catering Truck Driver Relationship Specialty Start Date End Date Name, MD Edmund [address] [place] [address] PCP - General Family Medicine 04/04/15 documented as of this encounter
--- OUTSIDE RECORDS SUMMARY | 2024-07-04 08:34 | XMS_ITS | Encounter Summary ---
Author Organization [employer] [facility] Address [address] [place] [address] Care Team Providers Care Radar Engineer Name Role Phone NameEdmund MD Primary Care Provider Unavailabl e Reason for Visit * Reason Onset Date Comments Offset Pressman Feedback 04/27/2014 [facility] Encounter Details Date Type Department Care Team Description 04/27/2014 Telephone Adult [address] [address] Name, MD Edmund Offset Pressman Feedback ([facility]) Social History Tobacco Use [...] to fax over labs and Notes to [phone] DX Epistaxis documented in this encounter Plan of Treatment Not on file documented as of this encounter Visit Diagnoses Not on filedocumented in this encounter Care Teams Radar Engineer Relationship Specialty Start Date End Date Edmund Valentino MD PCP - General Internal Medicine 01/28/11 documented as of this encounter
--- OUTSIDE RECORDS SUMMARY | 2024-07-04 08:34 | XMS_ITS | Encounter Summary ---
Author Organization [employer] [facility] Address [address] [place] [address] Care Team Providers Care Automated Logistics Specialist Name Role Phone Name, Edmund HERNANDEZ Primary Care Provider Unavailabl e Encounter Details Date Type Department Care Team Description 05/14/2013 Science Interpreter Report Medical Records [address] [place] [address] Karsten Kohli MD Social History Tobacco Use [...] on filedocumented in this encounter Care Teams Automated Logistics Specialist Relationship Specialty Start Date End Date Name, MD Edmund PCP - General Internal Medicine 01/28/11 documented as of this encounter
--- OUTSIDE RECORDS SUMMARY | 2024-07-04 08:34 | XMS_ITS | Continuity of Care Document ---
Author Organization [facility] Address [address] [place] [address] Care Team Providers Care Rug Hooker Name Role Phone HIM CCA OTHER NAME, COREY Primary Care Provider Assessment Encounter Date Assessment Date Assessment LastModified by Organization Details LastModified Time 07/01/2024 07/01/2024 I provided real -time medical direction via phone for this encounter, and was available for additional phone based assistance as needed. I have reviewed and agree with the Assessment and Plan as documented by the Roofing Sales Representative. We discussed the diagnostic uncertainty of home visits and the risk associated with this. In this case the patient and I felt this to be an acceptable and reasonable amount of risk given the benefit of avoiding an ED visit. The patient given the opportunity to ask questions. Advised if develops severe pain, saddle paresthesia, inability to ambulate to seek ED eval. Family verbalized understanding of instructions. [email or web address] Not available 07/01/2024 11:27:29 Plan of Treatment Reminders Order Date Submit Date Provider Last Modified By Organization Details Last Modified Time Details Appointments None recorded. Lab None recorded. Referral None recorded. Procedures None recorded. Surgeries None recorded. Imaging None recorded. Medication Orders lidocaine 5 % topical patch 2024 025 [id number], [address], [place], [place], [id number], 10:32:00 Patient TargetsNo targets recorded. Patient InstructionsNo instructions recorded. Reason for Referral None Reported. Medical Equipment None Reported. Allergies Allergen ID Allergen Name Allergen Category Reaction Reaction Severity Criticality Documentation Date Start Date Code Code System Note Provider Name and Address Organization Details Recorded Time 60300 purified protein derivativ e of tuberculi n medicatio n Not available Not available Not available 06/30/2024 8061 RxNorm Not Available [facility] - production 5 16:35:19 Medications Name Sig Start Date Stop Date Status Note LastModified by Organization Details LastModified Time metformin 500 mg tablet TAKE 1 TABLET BY MOUTH TWICE DAILY IN THE MORNING AND IN THE EVENING WITH MEALS active Not Available Not Available N ot Available atorvastatin 20 mg tablet TAKE 1 TABLET BY MOUTH EVERY DAY active Not Available Not Available No t Available prednisone 20 mg tablet TAKE 2 TABLETS BY MOUTH ONCE DAILY FOR 5 DAYS active Not Available Not Available No t Available penicillin V potassium 500 mg tablet TAKE 1 TABLET BY MOUTH TWICE DAILY FOR 10 DAYS active Not Available Not Available No t Available tramadol 50 mg tablet TAKE 2 TABLETS BY MOUTH TWICE DAILY IN THE MORNING AND AT BEDTIME NEEDED FOR SEVERE PAIN active Not Available Not Available No t Available acetaminophen 500 mg tablet TAKE 1 TABLET BY MOUTH EVERY 6 HOURS NEEDED FOR MILD PAIN active Not Available Not Available No t Available lidocaine 5 % topical patch active Not Available Not Availabl e Not Available lidocaine HCl 3 % topical cream active Not Available Not Available Not Available hydrocortison e 2.5 % topical ointment APPLY TOPICALLY TWICE DAILY active Not Available Not Available No t Available loratadine 10 mg tablet TAKE 1 TABLET BY MOUTH EVERY DAY active Not Available Not Available No t Available amoxicillin 875 mg-potassium clavulanate 125 mg tablet TAKE 1 TABLET BY MOUTH TWICE DAILY FOR 10 DAYS active Not Available Not Available No t Available cyclobenzapri ne 5 mg tablet TAKE 1 TABLET BY MOUTH EVERY DAY AT BEDTIME NEEDED FOR MUSCLE SPASMS active Not Available Not Available No t Available Coricidin HBP Chest Congestion-Co ugh 10 mg-200 mg capsule TAKE 1 CAPSULE BY MOUTH EVERY 6 TO 8 HOURS active Not Available Not Available No t Available lidocaine 5 % topical ointment active Not Available Not Available Not Available Paxlovid 300 mg (150 mg x 2)-100 mg tablets in a dose pack TAKE 3 TABLETS BY MOUTH TWICE DAILY active Not Available Not Available No t Available AsperFlex (lidocaine) 4 % topical cream active Not Available Not Available Not Available Vitals Date Recorded Heart rate Respiratory rate Body weight Body height Oxygen saturation Oxygen saturation in Arterial blood by Pulse oximetry Body temperature Systolic blood pressure Diastolic blood pressure Provider Name and Address Organization Details Last Updated DateTime 5 79 /min 18 /min 05201.5 76 g 152.4 cm 95 % 95 % 98.4 [degF] 146 mm[Hg] 98 mm[Hg] Not Available [facility] - production 10:24:48 Social History None recorded. Functional Status None recorded. Mental Status None recorded. Family History Nothing Reported. Medical History No medical history recorded. Gynecological HistoryNo gynecological history recorded. Obstetrics History GPAL:G 0 P 0 0 0 0 Past Encounters Encounter ID Performer Location Encounter Start Date Encounter Closed Date Diagnosis/Indication Diagnosis SNOMED-CT Code Diagnosis ICD10 Code Diagnosis Note [id number] SOMMER LIU NP, [facility] - [facility] [address] [place] [phone] 07/01/2024 10:24:45 07/02/2024 00:12:40 Chronic low back pain [id number] M54.42 M54.41 G89.29 Patient has hx of OA with flare of symptoms over past few weeks. Denies any acute injury or fall. She does have appt with pain management for cortisone injection next week. Reports she has tried Tylenol with no improvemen t. Has taken Tramadol in the past with relief, encouraged to call PCP tomorrow and request refill. Will send in script for topical treatment. Advised can use heat, gentle stretches and rest. Denies any kidney disease, hx of GI bleeds or taking any blood thinners, advised she can try Ibuprofen OTC 400mg x 1with food but she declines, reports it doesnt work for her, will try topical Lidocaine. *Spoke to Pharmacist - Lidocaine patches require PA, verbal order given to switch to Diclofenac 1% ointment instead. Health Concerns Section Related Observation LastModified by Organization Detai ls LastModified Time None Recorded Concern Status LastModified by Organization Details LastModified Time None Recorded Payers Encounter Date Sequence Insurance Name Policy Number Policy Hernandez Covered Member ID Hernandez Member ID Guarantor Name 07/01/2024 1 [facility] - DOS ON OR AFTER 2022 - DUAL ELIGIBLE - LONG-TERM OPTIONS AND ONE CARE (MEDICARE REPLACEMENT/ADV ANTAGE - HMO) Pippa Jackson [id number] Pippa Jackson Notes Date Note Type Note Provider Name and Address Organization Details Recorded Time 07/01/2024 text/html CRC Nurse Triage Notes (Ananda Blanco): Reason For Request: lower back and hip pain Denies: Falls with head strike and LOC Falls from a standing position, no LOC, patient is amnestic to the event Falls with isolated injury and deformity noted to limb Falls with inability to move post fall Cool extremities after fall or injury Weakness with fall, able to move all extremities Chief Complaints: Back Pain PMH: Asthma, Hypertension, Diabetes Mellitus Type 2 PMH Reviewed at 06/30/2024: Allergies Reviewed at 06/30/2024:35 Comments: 64 y.o female complains of lower back and hip Pain - Hx of same - Increased pain - Denies any recent falls and injuries - Denies fever - Denies bruising - Denies taking over the counter pain medication. Wellness check requested I provided information on the mobile health provider response time and advised the patient and/or caregiver to monitor reported signs and symptoms. I discussed the warning signs of when to seek emergency care. Outreach call the pt to reschedule the visit to 07/01 - Pt agrees and will monitor symptoms and seek ER treatment if needed - [facility] .................... .................... .................... .................... .................... .................... .................... . Roofing Sales Representative Note From [place] Rose: MARTA makes pt contact. She opens the door to her small and well-kept apartment and says rodo. She has a slight look of discomfort on her face and as she walks to the living room, her gait is noted to be slow w/ shuffle steps and she is slightly bent forward. No limp or obvious extremity weakness are noted. She sits very slowly and remains upright for the duration. She is not in respiratory distress, no facial droop or one-sided weakness are observed, and she is not bleeding anywhere. Pt endorses increased lumbar back pain for the past two weeks and it is beginning to cause her pain down both legs, but primarily the L side. She denies any recent trauma. Pt has osteoarthritis at baseline and is scheduled to have a cortisone injection around the 15th of this month. She has had injections before. She also says she has screws in her L ankle from a surgery several years ago and the foot and ankle are generally swollen and sore. It has been more sore lately and she has been advised she needs the screws removed, but she is not willing to do so at this time due to fear. She describes the pain as sharp w/ tingling in both legs and feet. She denies numbness and incontinence of her bladder or bowels, but she does say it is hard for her to stand up straight at times due to pain. No cp, sob, n/v/d, abd pain, fevers, or chills are reported. She says her neck is sore to touch. She is taking Tylenol 1G every 4-6 hours, but has had little relief. Pt consents to evaluation and treatment today. [facility] obtains pt consent. Vitals signs are gathered and physical assessment is performed. HEENT is unremarkable, but pt is tender to palpation on either side of her thyroid. Neck is supple and trachea is midline. No swelling or heat is noted in the thyroid and no swelling of lymph nodes submandibular or cervical. Oral mucosa are pink and moist, no redness or swelling is noted in the tongue or oral pharynx tissues. No pain w/ swallowing. Lung sounds are clear to auscultation bilaterally. Pt has general back soreness w/ increased pain w/ palpation L5-S1 and L sacral region. Tender to palpation over piriformis and L gluteus medius. Pain is increased w/ any ROM. CMS is intact bilaterally. Ankle swelling is noted bilaterally and is equal. [facility] contacts [facility] and discusses the above. [facility] recommends heat and ice, gentle stretching, and will prescribe a lidocaine gel or patch for pt. [facility] will also message pt's care team to request a refill of her tramadol. [facility] instructs pt to decrease her Tylenol intake to 1G TID and recommends trying ibuprofen as well, but pt does not like ibuprofen. Pt is instructed to apply heat for 10 min alternating w/ ice for 15 min every other hour and gentle stretching for her legs and back. Pt is advised of when to seek emergency care up to and including bladder/bowel incontinence or the development of saddle paralysis. Pt thanks [facility] for visit. [facility] is clear. Report completed by JUAN Rose [id number]. .................... .................... .................... .................... .................... .................... .................... . [facility] Consulted: Sommer Liu .................... .................... .................... .................... .................... .................... .................... . Disposition: Fulfilled SOMMER LIU NP, [address] [place] [address],[address], [place], [phone], FELIPE ROGERS 07/01/2024 11:44:34 OBGyn Episode No OBEpisode recorded.
--- OUTSIDE RECORDS SUMMARY | 2024-07-04 08:34 | XMS_ITS | Encounter Summary ---
Author Organization [facility] [facility] Address [address] [place] [address] Care Team Providers Care Tool And Gauge Inspector Name Role Phone Name, Edmund HERNANDEZ Primary Care Provider Unavailabl e Encounter Details Date Type Department Care Team Description 11/21/2013 Business Doc Medical Records [address] [place] [id number] Abstract, Provider Social History Tobacco Use Types [...] on filedocumented in this encounter Care Teams Tool And Gauge Inspector Relationship Specialty Start Date End Date Name, MD Edmund PCP - General Internal Medicine 01/28/11 documented as of this encounter
--- OUTSIDE RECORDS SUMMARY | 2024-07-04 08:34 | XMS_ITS | Encounter Summary ---
Author Organization [employer] Address [address] [place] [address] Care Team Providers Care Bench Repair Technician Name Role Phone Name, Edmund HERNANDEZ Primary Care Provider [phone] Reason for Visit * Reason Onset Date Comments mail appt slip 03/15/2024 Encounter Details Date Type Department Care Team ([facility] st Contact Info) Description 03/15/2024 Telephone [facility] ADULT DENTAL [address] [place] [address] Lillie Witt mail appt slip Social History [...] Description 07/17/2024 10:00 AM EDT Office Visit [facility] MEDICINE [address] [place] [id number] Name, MD Edmund [address] [place] [address] documented as of this encounter Visit Diagnoses Not on filedocumented in this encounter Additional Health Concerns Assessment Noted Time PHQ-9 Depression Total Score: 0 07/29/19 24 9:26 AM EDT documented as of this encounter Care Teams Bench Repair Technician Relationship Specialty Start Date End Date Name, MD Edmund [address] [place] [id number] PCP - General Family Medicine 04/04/15 documented as of this encounter
--- OUTSIDE RECORDS SUMMARY | 2024-07-04 08:34 | XMS_ITS | Encounter Summary ---
Author Organization [facility] Address [address] [place] [address] Care Team Providers Care Bleach Maker Name Role Phone Name, Edmund HERNANDEZ Primary Care Provider Unavailabl e Encounter Details Date Type Department Care Team Description 07/26/2014 Business Doc Medical Records [address] [place] [id number] Abstract, Provider Social History Tobacco Use Types [...] on filedocumented in this encounter Care Teams Bleach Maker Relationship Specialty Start Date End Date Name, MD Edmund PCP - General Internal Medicine 01/28/11 documented as of this encounter
--- OUTSIDE RECORDS SUMMARY | 2024-07-04 08:34 | XMS_ITS | Encounter Summary ---
Author Organization [facility] Address [address] [place] [address] Care Team Providers Care Component Overhaul Operator Name Role Phone Name, Edmund HERNANDEZ Primary Care Provider Unavailabl e Encounter Details Date Type Department Care Team Description 03/22/2013 Hospital Medical Records [address] [place] [address] Monica Figueroa Social History Tobacco Use Types [...] on filedocumented in this encounter Care Teams Component Overhaul Operator Relationship Specialty Start Date End Date Name, MD Edmund PCP - General Internal Medicine 01/28/11 documented as of this encounter
--- OUTSIDE RECORDS SUMMARY | 2024-07-04 08:34 | XMS_ITS | Clinical Summary ---
Author Organization [employer] Address [address] [facility] 7 [place] [address] Care Team Providers Care Field Support Specialist Name Role Phone Name, Edmund HERNANDEZ Primary Care Provider [phone] Allergies Active Allergy Reactions Criticality Noted Date Comments Alprazolam Nausea And Vomiting,Other,Swell ing 03/06/2008 Patient describes that she had a withdrawal from this medication causing extreme anxiety and dificulty breathin. She denies an actual allergy to this medicine Aspirin Nausea And Vomiting,Swelling High 03/06/2008 Other reaction(s): OTHER LegacyRecord#[id number] Throat closing Green Dye High 11/15/2018 IV DYE Iodinated Contrast Media Nausea And Vomiting,Swelling 03/06/2008 Other reaction(s): arm swelling Other reaction(s): OTHER Throat closing Iodine High 04/04/2015 LegacyRecord#[id number] Tuberculin Ppd High 11/15/2018 Tuberculin Purified Protein Derivative 08/20/2022 Other reaction(s): ?reaction Tuberculin, Ppd 01/09/2013 LegacyRecord#[id number] Medications fluticasone (Flonase) 50 MCG/ACT nasal sprayIndication s:Allergic rhinitis, unspecified seasonality, unspecified trigger Administer 2 [...] of breath. 75 mL 1 023 Active Spacer/Aero-Hol ding Chambers (OptiChamber Ophelia) misc 1 each every 4 (four) hours if needed (asthma). 1 each 023 Active metoprolol tartrate (Lopressor) 50 MG tabletIndicatio ns:Hypertension , unspecified type Take 1 tablet (50 mg) [...] EVERY DAY 100 each 11 023 Active budesonide-form oterol (Symbicort) 160-4.5 MCG/ACT inhaler Inhale. 023 Active [...] day. 30 capsule 2 Active glucose blood ([employer] Technology GroupTouch Verio) test stripIndication s:Type 2 diabetes mellitus without complication, without long-term current use of insulin ([facility]) USE TO TEST BLOOD SUGAR ONCE A DAY 100 strip 11 024 Active hydrocortisone 2.5 % ointmentIndicat ions:Fissure in skin Apply topically 2 times daily. 20 g 024 Active Dulaglutide (Trulicity) 0.75 MG/0.5ML solution auto-injectorIn dications:Type 2 diabetes mellitus without complication, without long-term current use of insulin (CMS/[facility]) Inject 0.5 mL (0.75 mg) under the skin 1 (one) time per week. INJECT 0.5 ML SUBCUTANEOUSLY EVERY WEEK. 2 mL 5 Active OneTouch Delica Lancets 33G misc USE TO TEST BLOOD SUGAR EVERY DAY 100 each 5 Active metFORMIN (Glucophage) 500 MG tabletIndicatio ns:Type 2 diabetes mellitus without complication, without long-term current use of insulin (CMS/HCC) TAKE 1 TABLET BY ORAL ROUTE 2 TIMES EVERY DAY WITH MORNING AND EVENING MEALS 60 tablet 5 Active atorvastatin (Lipitor) 20 MG tabletIndicatio ns:Type 2 diabetes mellitus without complication, without long-term current use of insulin (CMS/HCC) Take 1 tablet (20 mg) by mouth Once per day. 90 tablet 2 025 2024 Active loratadine (Claritin) 10 MG tabletIndicatio ns:Mild intermittent asthma, unspecified whether complicated Take 1 tablet (10 mg) by mouth Once per day. 90 tablet 1 Active acetaminophen (Tylenol Extra Strength) 500 MG tablet Take 1 tablet (500 mg) by mouth every 6 (six) hours if needed for mild pain. 120 tablet 025 2024 Active Ventolin HFA 108 (90 Base) MCG/ACT inhalerIndicati ons:Mild intermittent asthma, unspecified whether complicated USAR 2 INHALACIONS POR LA BOCA CADA 4 O 6 HORAS REBECA SEA NECESARIO 18 g 3 025 Active levothyroxine (Synthroid, Levoxyl) 88 MCG tablet JAMES 1 TABLETA POR LA BOCA EN LA MANANA ANTES DE DESAYUNO 90 tablet 3 025 Active levothyroxine (Synthroid, Levoxyl) 88 MCG tablet TAKE ONE TABLET BY MOUTH EVERY MORNING BEFORE BREAKFAST 90 tablet 1 024 2024 Discontinued Ventolin HFA 108 (90 Base) MCG/ACT inhalerIndicati ons:Mild intermittent asthma, unspecified whether complicated USAR 2 INHALACIONS POR LA BOCA CADA 4 O 6 HORAS REBECA SEA NECESARIO 18 g 2 025 2024 Discontinued amoxicillin-cla vulanate (Augmentin) 875-125 MG tablet Take 1 tablet by mouth 2 times daily for 10 days. 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 Assessment & Plan (2023 3:54 PM EDT): In close care with oncology, utd on mammogram Hypertrophic condition of skin 10/26/2018 Overview (08/20/2022): Overview Note: Hypertrophic disorders of skin #[id number]# EXT_ID: [id number] 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 Overview (08/20/2022): Overview Note: Monoarthritis, not elsewhere classified, knee #[id number]# EXT_ID: [id number] Assessment & Plan (2023 4:01 PM EDT): Trial tramadol, Medication Indications, side effects and duration of therapy reviewed, pt aware to call clinic for worsening symptoms or failure to resolve Dry eye syndrome 10/04/2018 Overview (08/20/2022): Overview Note: Dry eye syndrome #[id number]# EXT_ID: [id number] Pain in knee 10/04/2018 Overview (08/20/2022): Overview Note: Pain in knee #[id number]# EXT_ID: [id number] Intraductal carcinoma in situ of breast 08/04/19 19 Overview (08/20/2022): Overview Note: Intraductal carcinoma in situ of breast #0815395# EXT_ID: [id number] Benign mammary dysplasia 08/01/2018 Overview (08/20/2022): Overview Note: Other benign mammary dysplasias #8444810# EXT_ID: [id number] Mild persistent asthma 07/27/2018 Overview (08/20/2022): Overview Note: Mild intermittent asthma #9012921# EXT_ID: [id number] Assessment & Plan (06/13/2023 2:10 PM EDT): Stable mild intermittent, seasonal allergies are triggers, Anxiety disorder 07/27/2018 Overview (08/20/2022): The patient follows with Dr Taylor Overview Note: Other anxiety disorders #3516215# EXT_ID: [id number] Assessment & Plan (2023 3:55 PM EDT): Reports stable and well managed, continue current regimen Hypertension 07/27/2018 Overview (06/13/2023): At goal today, continue amlodipine and metoprolol, consider josefa or arb given concurrent dm, defer to pcp Joint pain 11/08/2017 Diabetes mellitus, type 2 05/21/2016 Overview (08/20/2022): Overview Note: Type 2 diabetes mellitus #[id number]# EXT_ID: [id number] Allergic rhinitis 05/21/2016 Assessment & Plan (2023 [...] Overview (08/20/2022): Overview Note: Carpal tunnel syndrome #8341360# EXT_ID: [id number] Atypical lobular hyperplasia (ALH) of breast Overview (08/20/2022): [place] [facility] [place] [facility] [place] [facility] [place] Avina. She was on Tamoxigen for 5 years Umbilical hernia 07/16/2011 Impaired fasting glucose 01/28/2011 Breast microcalcification, mammographic 01/09/20 11 Overview (08/20/2022): Biopsied in [place] 07-07-2009, fibrocystic disease. Acquired hypothyroidism 01/05/2011 Overview (08/20/2022): Overview Note: Other hypothyroidism #7332992# EXT_ID: [id number] Assessment & Plan (06/28/2023 11:56 AM EDT): [...] 12/08/2018 12/06/2023 Overview (08/20/2022): Overview Note: Cough #[id number]# EXT_ID: [id number] Major depressive disorder, recurrent 10/26/2018 06/29/2023 Overview (04/06/2022): Overview Note: Major depressive disorder, recurrent #[id number]# EXT_ID: [id number] Lung mass 01/08/2011 2023 Overview (08/20/2022): F/u recommended somewhere between 01/09 and 07/10 Abdominal pain 03/06/2008 12/06/2023 Overview (08/20/2022): Overview Note: Dorsalgia #3598150# EXT_ID: [id number] Cervical spine disc herniation Overview Note: Other abdominal pain #3973454# EXT_ID: [id number] Asthma 03/06/2008 12/06/2023 Assessment & Plan (07/30/2023 4:20 PM EDT): Recent exacerbation, no audible wheeze today, continue inhalers Assessment & Plan (2023 4:09 PM EDT): Continue current inhalers, seasonal allergies are trigger, monitor for increased albuterol usage Encounters Date Type Department Care Team Description 07/03/[address] [address] Edmund Valentino MD Medication Question; Med Refill 06/29/[address] [address] Edmund Valentino MD Mild intermittent asthma, unspecified whether complicated 06/11/2024 11:20 AM EDT Office Visit [facility] [address] [address] Freda Mauricio MD Subacute pansinusitis (Primary Dx); Body aches; Allergic rhinitis, unspecified seasonality, unspecified trigger 06/11/2024 Travel 05/16/2024 2:00 PM EDT [facility] [address] [address] Shona Blandon NP Dysphagia, unspecified type (Primary Dx); Cough in adult patient; Persistent cough; Hoarseness of voice; Lymphadenopathy of left cervical region 05/11/2024 1:20 PM EDT [facility] [address] [address] Yaa Daly MD History of strep pharyngitis (Primary Dx); Mild intermittent asthma, unspecified whether complicated; Neck pain on left side 05/11/2024 Travel 04/19/2024 10:45 AM EST Office Visit [address] [address] Alyssa Sandra MD Chronic bilateral low back pain with left-sided sciatica (Primary Dx) 04/19/2024 9:45 AM EST Office Visit [facility] [address] [place] [address] NameEdmund MD Type 2 diabetes mellitus without complication, without long-term current use of insulin ([facility]) (Primary Dx); Acquired hypothyroidism; Strep throat 04/09/2024 2:00 PM EST Office Visit [facility] [address] [place] [address] Shona Blandon NP Flu-like symptoms (Primary Dx); Strep pharyngitis; Hoarse voice quality from Last 3 Months Immunizations Name Administration [...] Sign Reading Time Taken Comments Blood Pressure 138/99 06/11/2024 11:27 AM EDT Pulse 91 06/11/2024 11:27 AM EDT Temperature 35.8 ??C (96.5 ??F) 06/11/2024 11:27 AM E DT Respiratory Rate 18 05/16/2024 2:05 PM EDT Oxygen Saturation 97% 06/11/2024 11:27 AM EDT Inhaled Oxygen Concentration - - Weight 69.4 kg (153 lb) 06/11/2024 11:27 AM EDT Height 152.4 cm (5') 06/11/2024 11:27 AM EDT Body Mass Index 29.88 06/11/2024 11:27 AM EDT Plan of Treatment Upcoming Encounters Date Type Department Care Team (Late st Contact Info) Description 07/17/2024 10:00 AM EDT Office Visit [facility] [address] [facility] [place] [address] Name, MD Edmund [address] [place] [address] Health Maintenance Due Date Last Done Comments [...] exists Eye Exam 03/29/2025 03/29/2023 Tobacco Screening 06/11/2025 06/11/2024 Colonoscopy 05/06/2026 05/06/2021 Colorectal Cancer Screening 05/06/2026 [...] Procedure Name Priority Date/Time Associated Diagnosis Comments AMB REFERRAL TO ENT Routine 06/26/2024 Hoarse voice quality POCT INFLUENZA B (ID NOW RAPID MOLECULAR) Routine 06/11/2024 11:44 AM EDT Body aches POCT INFLUENZA A (ID NOW RAPID MOLECULAR) Routine 06/11/2024 11:44 AM EDT Body aches POCT RAPID COVID ANTIGEN Routine 06/11/2024 11:38 AM EDT Body aches XR CHEST 2 VIEWS Routine 05/17/2024 11:5 [...] Recently Relevant to Health Maintenance Results * Referral to ENT (06/26/2024) Shona Blandon GRAB OPERATOR OUTPATIENT REFERRAL ORDERABLES Final Result * POCT Rapid Influenza B HUMPHREY ID NOW (06/11/2024 11:44 AM EDT) Only the most recent of4 resultswithin the time period is included. Pathologist [facility] Influenza B Negative Negative, Indeterminate [facility] QC Media Lot # [id number] [facility] Lot# Expiration Date [id number] [facility] Swab 06/11/2024 11:4 4 AM EDT Freda Mauricio MD POINT OF CARE TEST ENTER /EDIT ORDERABLES Final Result Performing Organization Address [facility] Co de Phone Number [facility] [address] [place] [phone] * POCT Rapid Influenza A HUMPHREY ID NOW (06/11/2024 11:44 AM EDT) Only the most recent of4 resultswithin the time period is included. [facility] Influenza A Negative Negative, Indeterminate [facility] QC Media Lot # [id number] [facility] Lot# Expiration Date [facility] Swab 06/11/2024 11:4 4 AM EDT Freda Mauricio MD POINT OF CARE TEST ENTER /EDIT ORDERABLES Final Result Performing Organization Address City/[facility] Co de Phone Number [facility] [address] [place] [phone] * POCT Rapid Covid-19 BinaxNOW (06/11/2024 11:38 AM EDT) Only the most recent of3 resultswithin the time period is included. Rapid COVID Ag Negative QC Media Lot # [id number] Lot# Expiration Date 90,426 Swab 06/11/2024 11:3 8 AM EDT us Freda Mauricio MD POINT OF CARE TEST ENTER /EDIT ORDERABLES Final Result * XR Chest 2 Views (05/17/2024 11:56 AM EDT) Anatomical Region Laterality Modality Chest Radiographic Suzanne ging 05/17/2024 11:5 6 AM EDT Narrative 05/17/2024 12:27 PM EDT ?[facility] ?[address] ?[place] [address] ?XRay Report ? Signed ? Patient: Renetta Colon,Pippa I ?MR#: [id number] ?? [id number] ? : 1960 ?Acct:[id number] ? Age/Sex: 63 / F ?ADM Date: 05/17/24 ? Loc: HO.HHCX ? Attending Dr: Shona Blandon ? Ordering Physician: Shona Blandon ?? Date of Service: 05/17/24 ?? Procedure(s): XR chest 2V ?? Accession Number(s): [id number] ? cc: Shona Blandon ? EXAMINATION: ??XR [...] DD/ 1156 ? TD/TT: 05/17/24 1206 ? City Surveyor: ? Procedure Note Perfecto Nair - 05/17/2024 [facility] [address] [facility] [place] [address] XRay Report Signed Patient: Renetta Colon,Pippa IMR#: [id number] : 1960Acct:[id number] Age/Sex: 63 / FADM Date: 05/17/24 Loc: HO.HHCX Attending Dr: Shona Blandon Ordering Physician: Shona Blnadon Date of Service: 05/17/24 Procedure(s): XR chest 2V Accession Number(s): [id number] cc: Shona Blandon EXAMINATION: XR CHEST 2 [...] Jeancarlos Calderon MD 05/17/2024 12:24 PM EDT RP Dictated By: Jeancarlos Calderon MD Signed By: <Electronically signed by Jeancarlos Calderon MD in OV> 05/17/24 1224 DD/ 1156 TD/TT: 05/17/24 1206 City Surveyor: Shona Blandon GRAB OPERATOR IMG XR PROCEDURES Final Result * POCT COVID-19 Ag Humphrey ID NOW (05/16/2024 2:10 PM EDT) Pathologist [facility] Coronavirus Antigen PCR Negative Negative, Indeterminate, None Detected, Invalid, Specimen unsatisfactory for evaluation, Weakly Positive Swab 05/16/2024 2:10 PM EDT Shona Swift GRAB OPERATOR POINT OF CARE TEST ENTER/EDIT O RDERABLES Final Result * POCT rapid strep A manually resulted (05/16/2024 2:10 PM EDT) Only the most recent of3 resultswithin the time period is included. Pathologist [facility] Rapid Strep A Screen Negative Negative, None Detected Swab 05/16/2024 2:10 PM EDT Shona Blandon GRAB OPERATOR POINT OF CARE TEST ENTER/EDIT O RDERABLES Final Result * T-SPOT??.TB (05/11/2024 2:13 PM EDT) Only the most recent of2 resultswithin the time period is included. T Spot TB Negative Negative [facility] Comment:A negative test resu lt does [...] as aquantitative test. TS PANEL A 0 [facility] TS PANEL B 0 [facility] Negative Control Passed [facility] Positive Control Passed [facility] Comment:For additional infor micheal, please refer [email or web address]/faq/SYV872(This link is being provided for informational/educational purposes only.)THIS TEST WAS PERFORMED AT:[employer] [id number] [place] [address]FNQPMAPMICHELLE HALL MD,PHD 05/11/2024 2:13 PM EDT 05/11/2024 4:20 PM EDT us Edmund Valentino MD LAB BLOOD ORDERABLES Final Resul t [facility] [address] [place] [phone] * (ABNORMAL) Basic Metabolic Panel (05/11/2024 2:13 PM EDT) Sodium 142 135 - 145 mmol/L [facility] Potassium 3.7 3.3 - 5.1 mmol/L [facility] Chloride 104 96 - 108 mmol/L [facility] Carbon Dioxide 30(H) 22 - 29 mmol/L [facility] Anion Gap 12 12 - 20 [facility] Urea Nitrogen (BUN) 17(H) 9 - 16 mg/dL [facility] Creatinine, Serum 0.74 0.5 - 1.4 mg/dL [facility] Estimated Glomerular Filt Rate >60 [facility] Comment:Chronic Kidney Disea se: Estimated GFR < 60 mL/min/1.02f6Ncrrgt Kidney Disease: Estimated GFR < 15 mL/min/1.73m2 Glucose 110 60 - 115 mg/dL [facility] Calcium 10.4(H) 8.4 - 10.2 mg/dL [facility] Blood Venous blood specimen / Unknown 05/11/2024 2:13 PM EDT 05/11/2024 4:20 PM EDT us Yaa Daly MD LAB BLOOD ORDERABLES Final Re sult [facility] [address] [place] [phone] * TSH W/Reflex to FT4 (04/19/2024 10:25 AM EST) TSH reflex Free T4 2.19 0.32 - 4.0 uIU/mL [facility] Blood Venous blood specimen / Unknown 04/19/2024 10:25 AM EST 04/19/2024 11:36 AM EST Edmund Valentino MD LAB BLOOD ORDERABLES Final Resul t [facility] [address] [place] [phone] * POCT Glucose (04/19/2024 9:55 AM EST) Glucose Blood, POC 129 60 - 200 mg/dL QC Media Lot # [id number] Lot# Expiration Date 53 Blood Capillary blood specimen / Unknown 04/19/2024 9:55 AM EST us Edmund Valentino MD POINT OF CARE TEST ENTER/EDIT OR DERABLES Final Result * Albumin, Random Urine W/Creatinine (12/06/2023 10:00 AM EDT) Creatinine, Urine 123.16 mg/dL [facility] Microalbumin Urine 11.0 mg/L [facility] Microalbum Creatinine Ratio Ur 8.9 <30 ug/mg cr [facility] Comment:Albumin/Creatinine R atio Reference Ranges: Normal: < 30 ug/mg creatinine Microalbuminuria: 30 - 300 ug/mg creatinineClinical Albuminuria: > 300 ug/mg creatinine Urine (Urine, Random) 12/06/2023 10:00 AM EDT 12/06/2023 11:23 AM EDT Result Dottie Valentino MD LAB URINE ORDERABLES Final Resul t [facility] [address] [place] [phone] * (ABNORMAL) POCT HGB A1C (12/06/2023 9:03 AM EDT) Hemoglobin A1C 6.6(A) 4.0 - 6.0 % QC Media Lot # [id number] Lot# Expiration Date ,026 Blood 12/06/2023 9:03 AM EDT Result Dottie Valentino MD POINT OF CARE TEST ENTER/EDIT OR DERABLES Final Result * BI Mammogram Screening Tomosynthesis Bilateral (07/05/2023 1:55 PM EDT) Anatomical Region Laterality Modality Breast Bilateral Mammography 07/05/2023 1:55 PM EDT Narrative 08/04/2023 1:26 PM EDT ? [facility] ? [address] ?[place], [place] [address] ? Mammography Report ? Signed ? Patient: Renetta Colon,Pippa I ?MR#: [id number] ?? [id number] ? : 1960 ?Acct:[id number] ? Age/Sex: 63 / F ?ADM Date: 07/05/23 ? Loc: HO.MAMMO ? Attending Dr: Tank Avina MD ? Ordering Physician: Tank Avina MD ?Results: 2Benig ?? n Findings ? Date of Service: 07/05/23 ?Follow Up: 1 Year From Orig ?? inal Mammogram ? Procedure(s): MM tomosynthesis screening BI ?? Accession Number(s): [id number] ? cc: Tank Avina MD; Name,Edmund HERNANDEZ [...] 1323 ? DD/ 1355 ? TD/TT: ? City Surveyor: ? Procedure Note Joanie, Image - 08/04/2023 [facility] [address] [place] [address] Mammography Report Signed Patient: Pippa Camilo IMR#: [id number] : 1960Acct:[id number] Age/Sex: 63 / FADM Date: 07/05/23 Loc: [facility] Attending Dr: Tank Avina MD Ordering Physician: Tank Avinaesults: 2Benig n Findings Date of Service: 07/05/23Follow Up: 1 Year From Orig inal Mammogram Procedure(s): MM tomosynthesis screening BI Accession Number(s): [id number] cc: Tank Avina MD; Name,Edmund HERNANDEZ EXAMINATION: [...] in OV> 08/04/23 1323 DD/ 1355 TD/TT: City Surveyor: [facility] External Provider IMG BI PROCEDURES Final Result * (ABNORMAL) Lipid Panel, Standard (06/07/2023 11:34 AM EDT) Triglycerides 125 <150 mg/dL [facility] Comment:Desirable Triglyceri de: less than 150 mg/dLBorderline High Triglyceride 150-199 mg/dLHigh Triglyceride: 200-499 mg/dLVery High Triglyceride: greater than or equal to 5OO mg/dL Cholesterol 225(H) <200 mg/dL [facility] Comment:Desirable Cholestero l: less than 200 mg/dLBorderline High Cholesterol: 200-239 mg/dLHigh Cholesterol: greater than 239 mg/dL LDL Cholesterol Calculated 141(H) <100 mg/dL [facility] Comment:Desirable LDL: less than 100 mg/dLNear Optimal/Above Optimal LDL: 110- 129 mg/dLBorderline High LDL: 130-159 mg/dLHigh LDL: 160-189 mg/dLVery High LDL: greater than or equal to 190 mg/dL HDL Cholesterol 59 >40 mg/dL [facility] Comment:Desirable HDL: great er than 40 mg/dL Note: This HDL assay may give artificially low results in patients with liver disease. Blood Venous blood specimen / Unknown 06/07/2023 11:34 AM EDT 06/07/2023 1:12 PM EDT Beth Blanco GRAB OPERATOR LAB BLOOD ORDERABLES Final Resul t [facility] [address] [place] [phone] * Diabetes Eye Exam (03/29/2023) Eye Exam Normal Normal 03/29/2023 us Edmund Name HEALTH MAINTENANCE Final Result * Colonoscopy (05/06/2021) Colonoscopy Normal Normal Narrative Rita Jimenez - 05/06/2021 Recommended 5 year follow up Historical Provider HEALTH MAINTENANCE Final Result from Last 3 Months or Most Recently Relevant to Health Maintenance [place] [address] [place] [address] [facility] < 67 [facility] Care Teams Field Support Specialist Relationship Specialty Start Date End Date Name, MD Edmund [address] [place] [phone] PCP - General Family Medicine 04/04/15
--- OUTSIDE RECORDS SUMMARY | 2024-07-04 08:34 | XMS_ITS | Encounter Summary ---
Author Organization [facility] Address [address] [place] [address] Care Team Providers Care Production Aide Name Role Phone NameEdmund MD Primary Care Provider Unavailabl e Reason for Visit * Reason Onset Date Comments er follow up 07/20/2012 Christy Encounter Details Date Type Department Care Team Description 07/20/2012 Telephone Adult Medicine [address] [address] Name, MD Edmund er follow up (Gee) [...] Which ER did they go to? : [facility] Was the patient admitted? : No. How is the patient feeling? : no change in health status Disposition? : Appointment made for patient at [facility] in 5 day(s) Comments: pain in right side of brain documented in this encounter Plan of Treatment Not on file documented as of this encounter Visit Diagnoses Not on filedocumented in this encounter Care Teams Production Aide Relationship Specialty Start Date End Date Name, MD Edmund PCP - General Internal Medicine 01/28/11 documented as of this encounter
--- OUTSIDE RECORDS SUMMARY | 2024-07-04 08:34 | XMS_ITS | Encounter Summary ---
Author Organization [facility] Address [address] [place] [address] Care Team Providers Care Sas Bi Developer Name Role Phone Name, Edmund HERNANDEZ Primary Care Provider Unavailabl e Encounter Details Date Type Department Care Team Description 08/19/2014 Swahili Teacher Report Medical Records [address] [place] [phone] Freddie Flores Social History Tobacco Use Types [...] on filedocumented in this encounter Care Teams Sas Bi Developer Relationship Specialty Start Date End Date Name, MD Edmund PCP - General Internal Medicine 01/28/11 documented as of this encounter
--- OUTSIDE RECORDS SUMMARY | 2024-07-04 08:35 | XMS_ITS | Encounter Summary ---
Author Organization [employer] Address 75 [facility] 7 [place] [address] Care Team Providers Care Beer Maker Name Role Phone Name, Edmund HERNANDEZ Primary Care Provider [phone] Reason for Visit * Reason Onset Date Comments Medication Question 07/03/2024 Med Refill 07/03/2024 Encounter Details Date Type Department Care Team ([facility] st Contact Info) Description 07/03/[address] [facility] MEDICINE [address] [place], [place] [phone] Name, MD Edmund [address] [place], [place] [phone] Medication Question; Med Refill Social History Tobacco Use Types Packs/Day Years [...] encounter Miscellaneous Notes * Telephone Encounter - Mary Ann Serna - 07/03/2024 8:41 AM EDT TC from pt requesting status on medication traMADol (Ultram) 50 MG tablet. Pt stated she was evaluated by paramedics on 07/01/24 due to back and leg pain and was advised they will send a request to pt PCP for Tramadol 50mg. To be sent to: [id number] [place] [address] [address] AT [facility] IF any questions contact pt at [phone] (thai) documented in this encounter Plan of Treatment Upcoming Encounters Date Type Department Care Team (Late st Contact Info) Description 07/17/2024 10:00 AM EDT Office Visit [facility] MEDICINE [address] [place] [address] Name, MD Edmund [address] [place] [address] documented as of this encounter Visit Diagnoses Not on filedocumented in this encounter Additional Health Concerns Assessment Noted Time PHQ-9 Depression Total Score: 0 07/29/19 24 9:26 AM EDT documented as of this encounter Care Teams Beer Maker Relationship Specialty Start Date End Date Name, MD Edmund [address] [place] [address] PCP - General Family Medicine 04/04/15 documented as of this encounter
--- OUTSIDE RECORDS SUMMARY | 2024-07-04 08:35 | XMS_ITS | Encounter Summary ---
Author Organization [employer] [facility] Address [address] [place] [address] [place], [place] [address] Care Team Providers Care Canal Boat Captain Name Role Phone Name, Edmund HERNANDEZ Primary Care Provider [phone] Encounter Details Date Type Department Care Team (Late Contact Info) Description 07/30/2022 Abstract [facility] MEDICINE [address] [place] [address] [phone] NameEdmund MD [address] [place] [address] Social History Tobacco Use Types Packs/Day Years [...] 10:00 AM EDT Office Visit [facility] MEDICINE [address] [place] [address] [phone] NameEdmund MD [address] [place] [address] [phone] documented as of this encounter Visit Diagnoses Not on filedocumented in this encounter Care Teams Canal Boat Captain Relationship Specialty Start Date End Date Name, MD Edmund [address] [place] [address] PCP - General Family Medicine 04/04/15 documented as of this encounter
--- OUTSIDE RECORDS SUMMARY | 2024-07-04 08:35 | XMS_ITS | Encounter Summary ---
Author Organization [employer] Address 75 [facility] 7t [place] [address] Care Team Providers Care General Accounting Manager Name Role Phone Name, Edmund HERNANDEZ Primary Care Provider [phone] Reason for Visit * Reason Comments Med Refill Encounter Details Date Type Department Care Team ([facility] st Contact Info) Description 06/29/2024 Refill [facility] MEDICINE [address] [place], [place] [phone] Name, MD Edmund [address] [place] [address] Mild intermittent asthma, unspecified whether complicated Social [...] Description 07/17/2024 10:00 AM EDT Office Visit [facility] MEDICINE [address] [place] [address] Name, MD Edmund [address] [place] [address] documented as of this encounter Visit Diagnoses Diagnosis Mild intermittent asthma, unspecified whether complicated documented in this encounter Additional Health Concerns Assessment Noted Time PHQ-9 Depression Total Score: 0 07/29/19 24 9:26 AM EDT documented as of this encounter Care Teams General Accounting Manager Relationship Specialty Start Date End Date Name, MD Edmund [address] [place] [address] PCP - General Family Medicine 04/04/15 documented as of this encounter
--- OUTSIDE RECORDS SUMMARY | 2024-07-04 08:35 | XMS_ITS | Encounter Summary ---
Author Organization [employer] [facility] Address 75 [facility] 7 [place] [address] Care Team Providers Care Deputy Sheriff Bailiff Name Role Phone Name, Edmund HERNANDEZ Primary Care Provider [phone] Encounter Details Date Type Department Care Team (Late st Contact Info) Description 09/02/2022 Abstract [facility] MEDICINE [address] [place] [address] [phone] Name, MD dEmund [address] [place] [address] Social History Tobacco Use Types Packs/Day Years [...] Office Visit [facility] MEDICINE [address] [place] [address] [phone] Name, MD Edmund [address] [place] [address] documented as of this encounter Visit Diagnoses Not on filedocumented in this encounter Care Teams Deputy Sheriff Bailiff Relationship Specialty Start Date End Date Name, MD Edmund [address] [place] [address] PCP - General Family Medicine 04/04/15 documented as of this encounter
--- OUTSIDE RECORDS SUMMARY | 2024-07-04 08:35 | XMS_ITS | Encounter Summary ---
Author Organization [employer] Address 75 [facility] 7t [place] [address] Care Team Providers Care Senior Bi Architect Name Role Phone Name, Edmund HERNANDEZ Primary Care Provider [phone] Reason for Visit * Reason Comments Med Refill Encounter Details Date Type Department Care Team ([facility] st Contact Info) Description 12/30/[address] [facility] MED & PEDS [address] [place], [place] [phone] Name, MD Edmund [address] [place] [address] Social History Tobacco Use Types Packs/Day Years [...] t he electric, gas, oil or water [employer] threatened to shut off services in your [...] AM EDT Office Visit [facility] MEDICINE [address] [place] [address] NameEdmund MD [address] [place] [address] documented as of this encounter Visit Diagnoses Not on filedocumented in this encounter Care Teams Senior Bi Architect Relationship Specialty Start Date End Date Edmund Valentino MD [address] [place] [address] PCP - General Family Medicine 04/04/15 documented as of this encounter
--- OUTSIDE RECORDS SUMMARY | 2024-07-04 08:35 | XMS_ITS | Encounter Summary ---
Author Organization [employer] Address 75 [facility] [place], [place] [address] Care Team Providers Care Amusement Park Entertainer Name Role Phone Name, Edmund HERNANDEZ Primary Care Provider [phone] Reason for Visit * Reason Onset Date Comments Pre OP 06/30/2022 Encounter Details Date Type Department Care Team ([facility] st Contact Info) Description 06/30/2022 Telephone [facility] MEDICINE [address] [place] [address] [phone] Name, MD Edmund [address] [place] [address] Pre OP Social History Tobacco Use Types [...] repair on 09/22/[address] Cobb at [facility]. Pt will be under general and popliteal [...] 2:33 PM EDT Tc from Bill from [facility] orthopedics returning call for PRE-OP appt , please see notes also stated surgeon will place order for EKG. Please contact at [phone] * Telephone Encounter - Julee Chung - 06/30/2022 1:46 PM EDT TC from Bill from [facility] requesting a PRE-OP Location: [address] Procedure: tendon repair Date of procedure: 09/22/22 @ 11:30am Labs: yes Ekg: yes Anesthesia Type : general and popliteal block Surgeon Name: donna tomlinson documented in this encounter Plan of Treatment Upcoming Encounters Date Type Department Care Team (Late st Contact Info) Description 07/17/2024 10:00 AM EDT Office Visit [facility] MEDICINE [address] [place] [address] Name, MD Edmund [address] [place] [address] documented as of this encounter Visit Diagnoses Not on filedocumented in this encounter Care Teams Amusement Park Entertainer Relationship Specialty Start Date End Date Name, MD Edmund [address] [place] [address] PCP - General Family Medicine 04/04/15 documented as of this encounter
--- OUTSIDE RECORDS SUMMARY | 2024-07-04 08:35 | XMS_ITS | Encounter Summary ---
Author Organization [employer] Address 75 [facility] 7t [place] [address] Care Team Providers Care Agency Trainer Name Role Phone Name, Edmund HERNANDEZ Primary Care Provider [phone] Reason for Visit * Reason Comments Med Refill Encounter Details Date Type Department Care Team ([facility] st Contact Info) Description 09/23/2023 Refill [facility] MEDICINE [address] [place], [place] [phone] Name, MD Edmund [address] [place] [address] Mild intermittent asthma, unspecified whether complicated Social [...] Description 07/17/2024 10:00 AM EDT Office Visit [facility] MEDICINE [address] [place] [address] Name, MD Edmund [address] [place] [address] documented as of this encounter Visit Diagnoses Diagnosis Mild intermittent asthma, unspecified whether complicated documented in this encounter Additional Health Concerns Assessment Noted Time PHQ-9 Depression Total Score: 0 07/29/19 24 9:26 AM EDT documented as of this encounter Care Teams Agency Trainer Relationship Specialty Start Date End Date NameEdmund MD [address] [place] [address] PCP - General Family Medicine 04/04/15 documented as of this encounter
--- OUTSIDE RECORDS SUMMARY | 2024-07-04 08:35 | XMS_ITS | Encounter Summary ---
Author Organization [employer] Address 75 [facility] 7t [place] [address] Care Team Providers Care Character Actress Name Role Phone Name, Edmund HERNANDEZ Primary Care Provider [phone] Reason for Visit * Reason Comments Med Refill Encounter Details Date Type Department Care Team ([facility] st Contact Info) Description 06/24/2023 Refill [facility] MEDICINE 230 [place], [place] [phone] Beth lBanco, SALVATORE [address] [place] [address] Social History Tobacco Use Types Packs/Day Years [...] t he electric, gas, oil or water [employer] threatened to shut off services in your [...] Description 07/17/2024 10:00 AM EDT Office Visit [facility] MEDICINE [address] [place] [address] NameEdmund MD [address] [place] [address] documented as of this encounter Visit Diagnoses Not on filedocumented in this encounter Care Teams Character Actress Relationship Specialty Start Date End Date NameEdmund MD [address] [place] [address] PCP - General Family Medicine 04/04/15 documented as of this encounter
--- OUTSIDE RECORDS SUMMARY | 2024-07-04 08:35 | XMS_ITS | Encounter Summary ---
Author Organization [employer] Address 75 [facility] 7t [place] [address] Care Team Providers Care Color Maker Name Role Phone Name, Edmund HERNANDEZ Primary Care Provider [phone] Reason for Visit * Reason Comments Med Refill Encounter Details Date Type Department Care Team ([facility] st Contact Info) Description 05/06/2023 Refill [facility] MEDICINE 230 [place], [place] [phone] Name, MD Edmund [address] [place] [address] Social History Tobacco Use Types Packs/Day Years Used Date Smoking Tobacco: Never Smokeless Tobacco: Never Alcohol Use Standard Drinks/Week Comments Never 0 (1 standard drink = 0.6 oz pur e alcohol) Housing Stability Answer Date Recorded What is your housing situation today? I have aronjessenia toney 05/09/[address] you [...] t he electric, gas, oil or water [employer] threatened to shut off services in your [...] Description 07/17/2024 10:00 AM EDT Office Visit [facility] MEDICINE [address] [place] [address] NameEdmund MD [address] [place] [address] documented as of this encounter Visit Diagnoses Not on filedocumented in this encounter Care Teams Color Maker Relationship Specialty Start Date End Date NameEdmund MD [address] [place] [address] PCP - General Family Medicine 04/04/15 documented as of this encounter
--- OUTSIDE RECORDS SUMMARY | 2024-07-04 08:35 | XMS_ITS | Encounter Summary ---
Author Organization [employer] Address 75 [facility] 7t [place] [address] Care Team Providers Care Guidance Counselor Name Role Phone Name, Edmund HERNANDEZ Primary Care Provider [phone] Reason for Visit * Reason Comments Med Refill Encounter Details Date Type Department Care Team ([facility] st Contact Info) Description 01/06/2024 Refill [facility] MEDICINE 230 [place], [place] [phone] Beth Blanco, SALVATORE [address] [place] [address] Social History Tobacco Use Types Packs/Day Years [...] EDT Office Visit [facility] MEDICINE [address] [place] [address] Name, MD Edmund 230 [place] [address] documented as of this encounter Visit Diagnoses Not on filedocumented in this encounter Additional Health Concerns Assessment Noted Time PHQ-9 Depression Total Score: 0 07/29/19 24 9:26 AM EDT documented as of this encounter Care Teams Guidance Counselor Relationship Specialty Start Date End Date Name, MD Edmund [address] [place] [address] PCP - General Family Medicine 04/04/15 documented as of this encounter
--- OUTSIDE RECORDS SUMMARY | 2024-07-04 08:35 | XMS_ITS | Encounter Summary ---
Author Organization [employer] [facility] Address 75 [facility] 7 [place] [address] Care Team Providers Care Pot Builder Name Role Phone Name, Edmund HERNANDEZ Primary Care Provider [phone] Encounter Details Date Type Department Care Team (Late st Contact Info) Description 09/07/2022 Abstract [facility] MEDICINE [address] [place] [address] [phone] Name, MD Edmund [address] [place] [address] Social History Tobacco Use Types Packs/Day Years [...] Office Visit [facility] MEDICINE [address] [place] [address] [phone] Name, MD Edmund [address] [place] [address] documented as of this encounter Procedures Procedure Name Priority Date/Time Associated Diagnosis Comments COLONOSCOPY Routine 05/06/2021 documented in this encounter Results * Hm Colonoscopy (05/06/2021) Colonoscopy Normal Normal Narrative Rita Jimenez - 05/06/2021 Recommended 5 year follow up us Historical Provider HEALTH MAINTENANCE Final Result documented in this encounter Visit Diagnoses Not on filedocumented in this encounter Care Teams Pot Builder Relationship Specialty Start Date End Date Name, [place] [address] PCP - General Family Medicine 04/04/15 documented as of this encounter
--- OUTSIDE RECORDS SUMMARY | 2024-07-04 08:35 | XMS_ITS | Encounter Summary ---
Author Organization [employer] Address 75 [facility] 7t [place] [address] Care Team Providers Care Event Crew Technician Name Role Phone Name, Edmund HERNANDEZ Primary Care Provider [phone] Reason for Visit * Reason Comments Med Refill Encounter Details Date Type Department Care Team ([facility] st Contact Info) Description 01/19/2023 Refill [facility] MED & PEDS [address] [place], [place] [phone] Name, MD Edmund [address] [place] [address] Social History Tobacco Use Types Packs/Day Years [...] t he electric, gas, oil or water [employer] threatened to shut off services in your [...] Description 07/17/2024 10:00 AM EDT Office Visit [facility] MEDICINE [address] [place] [address] NameEdmund MD [address] [place] [address] documented as of this encounter Visit Diagnoses Not on filedocumented in this encounter Care Teams Event Crew Technician Relationship Specialty Start Date End Date Edmund Valentino MD [address] [place] [address] PCP - General Family Medicine 04/04/15 documented as of this encounter
--- OUTSIDE RECORDS SUMMARY | 2024-07-04 08:35 | XMS_ITS | Encounter Summary ---
Author Organization [employer] [facility] Address [address] [place] [address] 7[place] [address] Care Team Providers Care Inspector And Unloader Name Role Phone Name, Edmund HERNANDEZ Primary Care Provider [phone] Encounter Details Date Type Department Care Team (Late Contact Info) Description 08/19/2022 Abstract [facility] MEDICINE [address] [place] [address] [phone] NameEdmund MD [address] [place] [address] Social History Tobacco Use Types Packs/Day Years [...] Office Visit [facility] MEDICINE [address] [place] [address] [phone] NameEdmund MD [address] [place] [address] [phone] documented as of this encounter Visit Diagnoses Not on filedocumented in this encounter Care Teams Inspector And Unloader Relationship Specialty Start Date End Date Name, MD Edmund [address] [place] [address] PCP - General Family Medicine 04/04/15 documented as of this encounter
--- OUTSIDE RECORDS SUMMARY | 2024-07-04 08:35 | XMS_ITS | Data Portability ---
Author Organization [employer] [facility] [place] - [employer] Address [address] [place] [address] Care Team Providers Care Pilot Teacher Name Role Phone HIM CCA OTHER NAMECOREY Primary Care Provider Assessment Encounter Date Assessment Date Assessment LastModified by Organization Details LastModified Time 07/01/2024 07/01/2024 I provided real -time medical direction via phone for this encounter, and was available for additional phone based assistance as needed. I have reviewed and agree with the Assessment and Plan as documented by the Electric Appliance Installer. We discussed the diagnostic uncertainty of home [...] ED eval. Family verbalized understanding of instructions. [email or web address] Not available 07/01/2024 11:27:29 Plan of Treatment Reminders Order Date Submit Date Provider Last Modified By Organization Details Last Modified Time Details Appointments None recorded. Lab None recorded. Referral None recorded. Procedures None recorded. Surgeries None recorded. Imaging None recorded. Medication Orders lidocaine 5 % topical patch 2024 025 [id number], [address] [place], [place], [id number], 10:32:00 Patient TargetsNo targets recorded. Patient InstructionsNo instructions recorded. Reason for Referral None Reported. Medical Equipment None Reported. Allergies Allergen ID Allergen Name Allergen Category Reaction Reaction Severity Criticality Documentation Date Start Date Code Code System Note Provider Name and Address Organization Details Recorded Time 58620 purified protein derivativ e of tuberculi n medicatio n Not available Not available Not available 06/30/2024 5348 RxNorm Not Available [employer] - production 5 [...] Updated DateTime 5 79 /min 18 /min 70791.5 76 g 152.4 cm 95 % 95 [...] SNOMED-CT Code Diagnosis ICD10 Code Diagnosis Note 66685 SOMMER LIU NP, S Main - instED [address] [place] [phone] 07/01/2024 10:24:45 07/02/2024 00:12:40 Chronic low back pain 527286632 M54.42 M54.41 G89.29 Patient has hx of [...] by Organization Details LastModified Time None Recorded Advance Directives Directive None Recorded Payers Insurance Date Sequence Insurance Name Policy Number Policy Hernandez Covered Member ID Hernandez Member ID Guarantor Name 06/30/2024 1 [facility] - DOS ON OR AFTER 2022 - DUAL ELIGIBLE - ALF OPTIONS AND ONE CARE (MEDICARE REPLACEMENT/ADV ANTAGE - HMO) Pippa [place] [id number] Pippa [place] Notes Date Note Type Note [...] Diabetes Mellitus Type 2 PMH Reviewed at 06/30/2024:35 Allergies Reviewed at 06/30/2024:35 Comments: 64 y.o [...] .................... .................... .................... .................... .................... .................... . Electric Appliance Installer Note From America Rose: [facility] makes pt contact. She opens the door [...] Pt consents to evaluation and treatment today. [facility] obtains pt consent. Vitals [...] swelling is noted bilaterally and is equal. [facility] contacts [facility] and discusses the above. [facility] recommends heat and ice, gentle stretching, and will prescribe a lidocaine gel or patch for pt. [facility] will also message pt's care team to request a refill of her tramadol. [facility] instructs pt to decrease [...] the development of saddle paralysis. Pt thanks [facility] for visit. [facility] is clear. Report completed by JUAN Rose [id number]. .................... .................... .................... .................... .................... .................... .................... . [facility] Consulted: Sommer Liu .................... .................... .................... .................... .................... .................... .................... . Disposition: Fulfilled SOMMER LIU NP, S [address] [place] [address],[address], [place], [address], GenArts[employer]IPE MORTENSEN 07/01/2024 11:44:34 OBGyn Episode No OBEpisode recorded.
--- OUTSIDE RECORDS SUMMARY | 2024-07-04 08:35 | XMS_ITS | Encounter Summary ---
Author Organization [employer] Address 75 [facility] 7t [place] [address] Care Team Providers Care Director Insurance Name Role Phone Name, Edmund HERNANDEZ Primary Care Provider [phone] Reason for Visit * Reason Onset Date Comments Appointment Request 05/16/2023 Encounter Details Date Type Department Care Team ([facility] st Contact Info) Description 05/16/2023 Telephone [facility] MEDICINE [address] [place], [place] [phone] Name, MD Edmund [address] [place] [address] Appointment Request Social History Tobacco Use Types [...] to cancel and reschedule appt for 05/15 service writer advisor did cancel per patients request documented in this encounter Plan of Treatment Upcoming Encounters Date Type Department Care Team (Late st Contact Info) Description 07/17/2024 10:00 AM EDT Office Visit [facility] MEDICINE [address] [place] [address] Name, MD Edmund [address] [place] [address] documented as of this encounter Visit Diagnoses Not on filedocumented in this encounter Care Teams Director Insurance Relationship Specialty Start Date End Date Name, MD Edmund [address] [place] [address] PCP - General Family Medicine 04/04/15 documented as of this encounter
--- OUTSIDE RECORDS SUMMARY | 2024-07-04 08:35 | XMS_ITS | Encounter Summary ---
Author Organization [employer] Address [address] [facility] [address] [place] [address] Care Team Providers Care Hotel Front Desk Clerk Name Role Phone Name, Edmund HERNANDEZ Primary Care Provider [phone] Reason for Visit * Reason Comments Med Refill Encounter Details Date Type Department Care Team ([facility] st Contact Info) Description 10/04/2023 Refill [facility] [address], [place] [id number] Name, MD Edmund [address] [place] [address] Mild intermittent asthma, unspecified whether complicated Social [...] 10:00 AM EDT Office Visit [facility] [address] [place] [address] Name, MD Edmund [address] [place] [address] documented as of this encounter Visit Diagnoses Diagnosis Mild intermittent asthma, unspecified whether complicated documented in this encounter Additional Health Concerns Assessment Noted Time PHQ-9 Depression Total Score: 0 07/29/19 24 9:26 AM EDT documented as of this encounter Care Teams Hotel Front Desk Clerk Relationship Specialty Start Date End Date NameEdmund MD [address] [place] [address] PCP - General Family Medicine 04/04/15 documented as of this encounter
--- NOTE | 2024-07-04 09:11 | MHC.OFFVIS ---
Vital Signs 07/04/24 09:12 Height 5 ft Weight 154 lb BMI 30.1 BP 110/78 Blood Pressure Location Lt brachial Position Sitting Pulse 72 Pulse Source Pulse Oximeter Pulse Oximetry (%) 97 Oxygen Delivery Method Room Air Intake Visit Reasons: Pulmonary Nodules Intake Note: pt is here as a new patient, some resp symptoms has hx of steven unable to use cpap. Perpetual Inventory Clerk Required: Yes Perpetual Inventory Clerk Services: Perpetual Inventory Clerk Present Perpetual Inventory Clerk Name: Ava Allergies tuberculin, purified protein deriva [TB TEST] Allergy (Severe, Verified 07/04/24 09:41) ANGIOEDEMA liquid of tb test Allergy (Severe, Uncoded 07/04/24 09:41) Rash Medication List - Last Reconciled 07/04/24 by Josi Stone MD albuterol sulfate 90 mcg/actuation 2 puffs PO Q4-6H PRN amlodipine 5 mg PO DAILY aspirin 81 mg PO DAILY atorvastatin 1 tab PO DAILY dulaglutide (Trulicity) 0.75 mg subcut QWEEK duloxetine 30 mg PO DAILY fluticasone propionate 50 mcg/actuation 2 sprays intranasal DAILY fluticasone propionate 220 mcg/actuation (Flovent HFA) 2 puffs inhalation BID gabapentin 100 mg PO TID hydroxyzine pamoate 1 cap PO BID ketoconazole 2% 1 appl topical DAILY lamotrigine 25 mg PO DAILY lamotrigine ER 25 mg PO DAILY levothyroxine 88 mcg PO DAILY loratadine 1 tab PO DAILY metformin 1 tab PO QAM metoprolol tartrate 25 mg PO BID montelukast (Singulair) 1 tab PO BEDTIME omega 7-ion-lsf-fish oil 300-1,000 mg 1 cap PO DAILY omeprazole 1 cap PO DAILY trazodone 50 mg PO BEDTIME zaleplon 10 mg PO BEDTIME PRN Do you need a note to return to daycare/school/sports/work: No HPI HPI Pulmonary Nodules: Details: 64 years old, Icelandic speaking but very pleasant female is being seen for the 1st time for pulmonary evaluation and ongoing management. Previously she has been going to a food packer at [facility], but now she wanted to change to our office. We have talked to the patient in detail through an manager credit collections, and also reviewed the records from [facility] as well as [facility]. She has longstanding history of upper airway allergies especially with nasal congestion, frequent soreness in the throat, and change in the voice . She has been on montelukast 10 mg daily for many years and also uses Flonase spray along with OTC antihistaminics off and on. Patient also carries diagnosis of chronic obstructive pulmonary disease, and is currently on Advair HFA as well as albuterol p.r.n.. Pulmonary function test performed at [facility] many years ago we do not have the report of that. She complains of getting short of breath on walking a few blocks or climbing stairs. She has intermittent bouts of cough but denies any overt wheezing. She has been nonsmoker. 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 She has been told to have pulmonary nodules. We reviewed the CT scan report from [facility], done in January 2024 and she does have pulmonary nodules measuring up to 4-5 mm but nonspecific. She is nonsmoker. Patient does have diabetes mellitus, hypothyroidism, GERD symptoms, chronic anxiety, also fibromyalgia. She also has been tested for sleep apnea and at [facility] found to have moderately severe obstructive sleep apnea, mostly in supine position. She was started on BiPAP therapy but she did not tolerate the mask at tall, show gave up on using the BiPAP. Now she sleeps mostly in right lateral position and sleeps okay with minimal snoring. [facility] Medical History (Updated 07/04/24 @ 10:45 by Josi Stone MD) Pulmonary nodules STEVEN (obstructive sleep apnea) Asthma with COPD Allergic rhinitis Osteoarthritis, hip, bilateral Frequency of urination Hernia Depression Anxiety Heart disease Diabetes Asthma Fibromyalgia Atypical lobular hyperplasia (ALH) of breast Surgical History Hx of cardiac cath H/O rectal polypectomy History of carpal tunnel surgery Hx of toe surgery Hx of right knee surgery Hx of tonsillectomy History of appendectomy Hx of cholecystectomy H/O: hysterectomy Hx of section Family History Brother Heart disease Asthma Mother Family history of esophageal cancer Hypertension Asthma Lung cancer Father History of prostate cancer Asthma Paternal Aunt No problems noted. Paternal Grandfather Liver cancer Colon cancer Family/Other Stomach cancer Maternal Aunt Breast cancer Social History Household Members: None Housing: Apartment Are you a primary anesthesiologist and critical care to a significant other at home: No Do you presently have visiting nurse or other home services: No Alcohol intake: former Patient Tobacco Use Status: Never used Tobacco service: No Current occupational status: disabled Female Reproductive History Menstrual Age of Menarche: 15 Review of Systems Const All systems reviewed & are unremarkable except as noted in HPI and below Eyes Reports no additional complaints ENT Reports dizziness (Intermittent nonspecific), Reports nasal congestion (Chronic intermittent) and Reports neck mass (Complains of some nodes on the side of the neck off and on) Card Denies chest pain, Denies irregular heart rhythm and Denies leg edema Resp Reports as per HPI GI Reports heartburn (Intermittent treated with omeprazole) Reports no additional complaints Musc Reports back pain and Reports myalgias (As history of fibromyalgia) Skin/Breast Reports system reviewed and no additional complaints, except as documented Neuro Reports dizziness (Intermittent nonspecific) Psych Reports anxiety Endo Reports other (Diabetes M and hypothyroidism) Buster/Lymph Reports lymphadenopathy (History of large cervical lymph nodes off and on) Aller/Immun Reports no additional complaints Physical Exam Vital Signs: Last Vital Signs Pulse 72 07/04/24 09:12 BP 110/78 07/04/24 09:12 Pulse Ox 97 07/04/24 09:12 Oxygen Delivery Method Room Air 07/04/24 09:12 BMI result Body Mass Index 30.1 Const General: healthy appearing, comfortable, no acute distress, alert and awake Orientation/consciousness: patient oriented x3 HEENT Head: Yes normal to inspection General nose exam: No nasal polyps present and No nasal discharge present Face and sinus: Yes sinuses nontender Mouth: oropharynx normal Throat: Yes posterior oropharynx normal Eyes General: appearance normal, both eyes and all related structures Neck Neck: Yes normal visual inspection, Yes no lymphadenopathy, Yes trachea midline and Yes no JVD Thyroid: Thyroid normal Chest Chest palpation & inspection: normal inspection of the chest, normal palpation of entire chest wall and no tenderness Resp Other: Percussion note is resonant, she has good breath sounds on both sides but they are relatively distant with prolonged expiratory phase. No audible wheezes or rhonchi. Cardio Palpation: normal PMI Rate: regular rate Rhythm: regular rhythm Heart sounds: no gallops and no murmurs Peripheral pulses: Peripheral pulses 2+ throughout GI Palpation (GI): Soft to palpation, nontender, No hepatosplenomegaly present and no masses Auscultation: normal bowel sounds Back/Spine/Pelvis Thoracic/Lumbar Spine: thoracic and lumbar spine normal to inspection Skin General skin exam: no rashes or lesions noted Neuro General: patient oriented x3 and no focal motor deficits Cranial nerves: Yes CN's II-XII intact bilaterally Extrem General: Yes normal to inspection, Yes no clubbing, cyanosis or edema and Yes no calf tenderness Psych Appearance: grossly normal and well kempt Speech and movement: Normal speech and movement present Results Reviewed Results Reviewed: Notes from [facility]. Note from Dr. Tank Avina , reviewed . Assessment & Plan Assessment & Plan (1) Fibromyalgia: Comment: This patient has multiple nonspecific type of symptoms, relating to multiple systems, and including chronic body aches and back pain. She carries diagnosis of fibromyalgia, which may explain her multisystem symptoms. Code(s): M79.7 - Fibromyalgia Category: Medical Plan: We talked to the patient in detail, in general, explained to her, about multi system related symptoms. Which may be aggravated by fibromyalgia. Good explanation and reassurance may be helpful. (2) Allergic rhinitis: Comment: Patient has history of upper airway allergies for long time. She has been treated with montelukast, decongestants and antihistaminics. She describes frequent flare ups of nasal congestion postnasal discharge cough and throat irritation. Code(s): J30.9 - Allergic rhinitis, unspecified Category: Medical Plan: Again explained in detail about these symptoms. Also explained about the recurrent nature of the symptoms. As far as treatment is concerned, She can continue montelukast 10 mg daily. Use Flonase 2 spray in each nostril daily. Use OTC antihistaminic agent such as loratadine 10 mg p.r.n. (3) Asthma with COPD: Comment: Patient has symptoms of intermittent cough and describes to get short of breath on exertion. She has been on treatment with Advair and albuterol. She had a pulmonary function test many years ago it at [facility]. Code(s): J44.89 - Other specified chronic obstructive pulmonary disease Category: Medical Plan: She would need an up to date pulmonary function test for evaluation. I told her to hold off the inhalers at least for 2 days before the pulmonary function test. For the time being she can continue to use Advair HFA 230/21 2 puffs b.i.d.,, and albuterol HFA 2 puffs q.6 hours PRN. After the pulmonary function test this dose will need to be adjusted Pulmonary function test is ordered. (4) STEVEN (obstructive sleep apnea): Comment: Patient does have history of poor sleep at night. .She is moderately obese She did have sleep study at [facility] showing moderately severe obstructive sleep apnea and she was actually started on BiPAP therapy. She could not tolerate the wearing of the mask, , made her suffocated and she quit using the BiPAP. She sticks to sleeping in right lateral position and say is that she gets good sleep, and denies any frequent awakening or daytime sleepiness. Code(s): G47.33 - Obstructive sleep apnea (adult) (pediatric) Category: Medical Plan: Patient was provided with BiPAP but she could not use it. Instructed to try to sleep in lateral position, as much as possible (5) Pulmonary nodules: Comment: Previous CT scan at [facility] as well as at [facility] have shown multiple small pulmonary nodules, size 4-5 mm, nonspecific and most likely benign. She is a nonsmoker, so she is not a high risk patient. Last CT scan at [facility] was in January 2024 . We may opt to do annual CT scan at least for a few times. Code(s): R91.8 - Other nonspecific abnormal finding of lung field Category: Medical Plan: She would have annual CT scan of the chest for the next few years, Orders: Orders PFT pulmonary function test Today J44.89 - Other specified chronic obstructive pulmonary disease Coding Level of Care Code New Pt Level 4 (99153) Diagnoses Fibromyalgia M79.7 Allergic rhinitis J30.9 Asthma with COPD J44.89 STEVEN (obstructive sleep apnea) G47.33 Pulmonary nodules R91.8
[2024-07-04 09:12] VITALS: BP 110/78; PULSE 72; O2SAT 97; BMI 30.1
== END 2024-07-04 09:45 | disposition home or self-care (01) ==
LOC: HO.HPS 08:24
PROVIDERS: PCP Internal Medicine Geriatric Medicine; Visit Provider Internal Medicine
DX: M79.7 Fibromyalgia (principal); J30.9 Allergic rhinitis, unspecified; J44.89 Other specified chronic obstructive pulmonary disease; G47.33 Obstructive sleep apnea (adult) (pediatric); R91.8 Other nonspecific abnormal finding of lung field
CPT/HCPCS: 99204

== ENCOUNTER → 2024-07-04 08:23 | Outpatient (BNVA) | payer OTHER, SELFPAY | PROVIDERS: PCP Internal Medicine Geriatric Medicine; Visit Provider Internal Medicine | DX: R91.8 Other nonspecific abnormal finding of lung field (principal); G47.33 Obstructive sleep apnea (adult) (pediatric); J44.89 Other specified chronic obstructive pulmonary disease; J30.9 Allergic rhinitis, unspecified; M79.7 Fibromyalgia | CPT/HCPCS: 99202 ==

== ENCOUNTER 2024-07-05 07:35 | Outpatient (REF) | payer OTHER, SELFPAY ==
--- NOTE | 2024-07-05 08:34 | PFT_ITS ---
Indication: Pulmonary nodule Spirometry [FEV1 to FVC 84%; FEV1 1.98 L; FVC 2.36 L. No significant response to bronchodilators noted.] Lung Volumes [Total lung capacity 82% predicted; expiratory reserve volume 32% predicted] Diffusion Capacity [DLCO 81% predicted] Comparisons [none] Interpretation [No obstructive nor restrictive ventilatory defects identified. No significant response to bronchodilators noted. Patient does have low normal lung volumes with a decrease in the expiratory reserve volume likely secondary to an elevated BMI. Diffusion capacity also low normal. Clinical correlation warranted.] MTDD
[2024-07-05 08:37] VITALS: PULSE 62; O2SAT 97
== END 2024-07-05 07:36 | disposition home or self-care (01) ==
LOC: HO.RESP 07:35
PROVIDERS: PCP Internal Medicine Geriatric Medicine; Visit Provider Internal Medicine
DX: J44.89 Other specified chronic obstructive pulmonary disease (principal)
CPT/HCPCS: 94010; 94640; 94727; 94729

== ENCOUNTER → 2024-07-05 08:34 | Outpatient (BNV) | payer OTHER, SELFPAY | PROVIDERS: PCP Internal Medicine Geriatric Medicine; Visit Provider Hospitalist | DX: R06.09 Other forms of dyspnea (principal) | CPT/HCPCS: 94060; 94727; 94729 ==

== ENCOUNTER 2024-07-09 10:41 | Outpatient (AMB) | payer OTHER, SELFPAY ==
[2024-07-09 10:47] VITALS: BP 138/77; PULSE 91; RESP 16; O2SAT 97; BMI 28.3
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
--- OUTSIDE RECORDS SUMMARY | 2024-07-09 11:26 | XMS_ITS | Encounter Summary ---
Author Organization [employer] [facility] Address [address] [place] [address] Care Team Providers Care Spike Machine Feeder Name Role Phone Community, Pcp Primary Care Provider Unavailjose e Edmund Valentino MD Primary Care Provider Unavailjose e Encounter Details Date Type Department Care Team Description 01/11/2011 Transfer Records Medical Records [address] [place] [address] Abstract, Provider Social History Tobacco Use Types [...] on filedocumented in this encounter Care Teams Spike Machine Feeder Relationship Specialty Start Date End Date Community, Pcp PCP - General Internal Medicine 01/05/11 01/27/11 Edmund Valentino MD PCP - General Internal Medicine 01/28/11 documented as of this encounter
--- OUTSIDE RECORDS SUMMARY | 2024-07-09 11:26 | XMS_ITS | Encounter Summary ---
Author Organization [facility] Address [address] [place] [address] Care Team Providers Care Cavalry Officer Name Role Phone Community, Pcp Primary Care Provider Unavailjose e Edmund Valentino MD Primary Care Provider Unavailjose e Encounter Details Date Type Department Care Team Description 01/07/2011 Release of Information Medical Records [address] [place] [id number] Abstract, Provider Social History Tobacco Use Types [...] on filedocumented in this encounter Care Teams Cavalry Officer Relationship Specialty Start Date End Date Community, Pcp PCP - General Internal Medicine 01/05/11 01/27/11 Edmund Valentino MD PCP - General Internal Medicine 01/28/11 documented as of this encounter
--- OUTSIDE RECORDS SUMMARY | 2024-07-09 11:26 | XMS_ITS | Encounter Summary ---
Author Organization [email or web address] [facility] Address [address] [place] [address] Care Team Providers Care Strategic Partnership Manager Name Role Phone Name, Edmund HERNANDEZ Primary Care Provider Unavailabl e Encounter Details Date Type Department Care Team Description 03/16/2011 Business Doc Medical Records [address] [place] [id number] Abstract, Provider Social History Tobacco Use Types [...] on filedocumented in this encounter Care Teams Strategic Partnership Manager Relationship Specialty Start Date End Date Name, MD Edmund PCP - General Internal Medicine 01/28/11 documented as of this encounter
--- OUTSIDE RECORDS SUMMARY | 2024-07-09 11:26 | XMS_ITS | Encounter Summary ---
Author Organization [employer] [facility] Address [address] [place] [address] Care Team Providers Care Supervisor Chemical Name Role Phone Name, Edmund HERNANDEZ Primary Care Provider Unavailabl e Encounter Details Date Type Department Care Team Description 11/15/2012 Business Doc Medical Records [address] [place] [id number] Abstract, Provider Social History Tobacco Use Types [...] filedocumented in this encounter Care Teams Supervisor Chemical Relationship Specialty Start Date End Date Name, MD Edmund PCP - General Internal Medicine 01/28/11 documented as of this encounter
--- OUTSIDE RECORDS SUMMARY | 2024-07-09 11:26 | XMS_ITS | Encounter Summary ---
Author Organization [employer] [facility] Address [address] [place] [address] Care Team Providers Care Spike Driver Name Role Phone Name, Edmund HERNANDEZ Primary Care Provider Unavailabl e Encounter Details Date Type Department Care Team Description 11/15/2012 Business Doc Medical Records [address] [place] [id number] Abstract, Provider Social History Tobacco Use Types [...] filedocumented in this encounter Care Teams Spike Driver Relationship Specialty Start Date End Date Name, MD Edmund PCP - General Internal Medicine 01/28/11 documented as of this encounter
--- OUTSIDE RECORDS SUMMARY | 2024-07-09 11:26 | XMS_ITS | Encounter Summary ---
Author Organization [employer] [facility] Address [address] [place] [address] Care Team Providers Care Proteomics Scientist Name Role Phone Name, Edmund HERNANDEZ Primary Care Provider Unavailabl e Encounter Details Date Type Department Care Team Description 12/04/2014 Business Doc Medical Records [address] [place] [id number] Abstract, Provider Social History Tobacco Use Types [...] on filedocumented in this encounter Care Teams Proteomics Scientist Relationship Specialty Start Date End Date Name, MD Edmund PCP - General Internal Medicine 01/28/11 documented as of this encounter
--- OUTSIDE RECORDS SUMMARY | 2024-07-09 11:26 | XMS_ITS | Encounter Summary ---
Author Organization [employer] [facility] Address [address] [place] [address] Care Team Providers Care Utility Sales And Service Manager Name Role Phone Name, Edmund HERNANDEZ Primary Care Provider Unavailabl e Encounter Details Date Type Department Care Team Description 11/06/2014 Controlled Substance Contract with Plan Medical Records [address] [place] [address] Abstract, Provider Social History Tobacco Use Types [...] on filedocumented in this encounter Care Teams Utility Sales And Service Manager Relationship Specialty Start Date End Date Name, MD Edmund PCP - General Internal Medicine 01/28/11 documented as of this encounter
--- OUTSIDE RECORDS SUMMARY | 2024-07-09 11:27 | XMS_ITS | Encounter Summary ---
Author Organization [employer] Address [address] [facility] [address]t [place] [address] Care Team Providers Care Sound Installation Worker Name Role Phone Name, Edmund HERNANDEZ Primary Care Provider [phone] Reason for Visit * Reason Comments Med Refill Encounter Details Date Type Department Care Team ([facility] st Contact Info) Description 01/09/2024 Refill [facility] MEDICINE [address] [place], [place] [phone] Name, MD Edmund [address] [place] [address] Social History Tobacco Use Types Packs/Day Years [...] Description 07/17/2024 10:00 AM EDT Office Visit [facility] MEDICINE [address] [place] [address] Name, MD Edmund [address] [place] [address] documented as of this encounter Visit Diagnoses Not on filedocumented in this encounter Additional Health Concerns Assessment Noted Time PHQ-9 Depression Total Score: 0 07/29/19 24 9:26 AM EDT documented as of this encounter Care Teams Sound Installation Worker Relationship Specialty Start Date End Date Name, MD Edmund [address] [place] [address] PCP - General Family Medicine 04/04/15 documented as of this encounter
--- OUTSIDE RECORDS SUMMARY | 2024-07-09 11:27 | XMS_ITS | Encounter Summary ---
Author Organization [employer] [facility] Address [address] [place] [address] Care Team Providers Care Cellophane Casting Machine Repairer Name Role Phone Name, Edmund HERNANDEZ Primary Care Provider Unavailabl e Encounter Details Date Type Department Care Team Description 01/21/2015 Business Doc Medical Records [address] [place] [address] Abstract, Provider Social History Tobacco Use Types [...] on filedocumented in this encounter Care Teams Cellophane Casting Machine Repairer Relationship Specialty Start Date End Date Name, MD Edmund PCP - General Internal Medicine 01/28/11 documented as of this encounter
--- OUTSIDE RECORDS SUMMARY | 2024-07-09 11:27 | XMS_ITS | Encounter Summary ---
Author Organization [employer] [facility] Address [address] [place] [address] Care Team Providers Care Light Industrial Supervisor Name Role Phone Name, Edmund HERNANDEZ Primary Care Provider Unavailabl e Encounter Details Date Type Department Care Team Description 01/31/2012 Distribution Supervisor Report Medical Records [address] [place] [address] Ni Rolle Social History Tobacco Use Types [...] on filedocumented in this encounter Care Teams Light Industrial Supervisor Relationship Specialty Start Date End Date Name, MD Edmund PCP - General Internal Medicine 01/28/11 documented as of this encounter
--- OUTSIDE RECORDS SUMMARY | 2024-07-09 11:27 | XMS_ITS | Encounter Summary ---
Author Organization [employer] [facility] Address [address] [place] [address] Care Team Providers Care Surface Ship Usw Supervisor Name Role Phone Name, Edmund HERNANDEZ Primary Care Provider Unavailabl e Encounter Details Date Type Department Care Team Description 07/08/2011 Hospital Medical Records [address] [place] [address] Karsten Christian MD [address] [place] [address] Social History Tobacco Use Types Packs/Day Years [...] on filedocumented in this encounter Care Teams Surface Ship Usw Supervisor Relationship Specialty Start Date End Date Name, MD Edmund PCP - General Internal Medicine 01/28/11 documented as of this encounter
--- OUTSIDE RECORDS SUMMARY | 2024-07-09 11:27 | XMS_ITS | Encounter Summary ---
Author Organization [employer] [facility] Address [address] [place] [address] Care Team Providers Care Front Desk Supervisor Name Role Phone Name, Edmund HERNANDEZ Primary Care Provider Unavailabl e Encounter Details Date Type Department Care Team Description 06/28/2011 Diamond Cutter Report Medical Records [address] [place] [address] Rehab., [facility] Social History Tobacco Use Types Packs/Day [...] on filedocumented in this encounter Care Teams Front Desk Supervisor Relationship Specialty Start Date End Date Name, MD Edmund PCP - General Internal Medicine 01/28/11 documented as of this encounter
--- OUTSIDE RECORDS SUMMARY | 2024-07-09 11:27 | XMS_ITS | Encounter Summary ---
Author Organization [employer] [facility] Address [address] [place] [address] Care Team Providers Care Geology Teacher Name Role Phone Name, Edmund HERNANDEZ Primary Care Provider Unavailabl e Encounter Details Date Type Department Care Team Description 05/14/2013 Teenage Babysitter Report Medical Records [address] [place] [address] Karsten Kohli MD Social History Tobacco Use [...] on filedocumented in this encounter Care Teams Geology Teacher Relationship Specialty Start Date End Date Name, MD Edmund PCP - General Internal Medicine 01/28/11 documented as of this encounter
--- OUTSIDE RECORDS SUMMARY | 2024-07-09 11:27 | XMS_ITS | Encounter Summary ---
Author Organization [employer] [facility] Address [address] [place] [address] Care Team Providers Care Cloth Layer Name Role Phone Name, Edmund HERNANDEZ Primary Care Provider Unavailabl e Encounter Details Date Type Department Care Team Description 09/21/2011 Business Doc Medical Records [address] [place] [address] Abstract, Provider Social History Tobacco Use Types [...] on filedocumented in this encounter Care Teams Cloth Layer Relationship Specialty Start Date End Date Name, MD Edmund PCP - General Internal Medicine 01/28/11 documented as of this encounter
--- OUTSIDE RECORDS SUMMARY | 2024-07-09 11:27 | XMS_ITS | Encounter Summary ---
Author Organization [employer] Address [address] [facility] 7 [place] [address] Care Team Providers Care Soils Analyst Name Role Phone Name, Edmund HERNANDEZ Primary Care Provider [phone] Encounter Details Date Type Department Care Team (Late Contact Info) Description 05/12/2022 Orders Only [facility] MED & PEDS [address] [place], [place] [phone] Sarah Sherwood LPN Social History Tobacco Use [...] Description 07/17/2024 10:00 AM EDT Office Visit [facility] MEDICINE [address] [place] [address] Name, MD Edmund [address] [place] [address] documented as of this encounter Procedures Procedure Name Priority Date/Time Associated Diagnosis Comments VASC US LOWER EXTREMITY VENOUS DUPLEX RIGHT Routine 06/11/2022 2:15 PM EDT XR CHEST 2 VIEWS Routine 05/19/2022 5:03 PM EDT documented in this encounter Results * Vascular US lower extremity venous duplex right (06/11/2022 2:15 PM EDT) 06/11/2022 2:15 PM EDT Narrative [facility] IMAGING - 06/11/2022 3:03 PM EDT ? [facility] ?[address] ?[place] [address] ? Ultrasound Report ? Signed ? Patient: Pippa Camilo I ?MR#: [id number] ?? [id number] ? : 1960 ?Acct:[id number] ? Age/Sex: 61 / F ?ADM Date: 06/11/22 ? Loc: HO.US ? Attending Dr: Uli Prakash MD ? Ordering Physician: ULI PRAKASH MD ?? Date of Service: 06/11/22 ?? Procedure(s): US venous duplex LE RT ?? Accession Number(s): [id number] ? cc: ULI PRAKASH MD ? EXAMINATION: [...] 1500 ? DD/ 1415 ? TD/TT: ? Field Marketing Manager: SK ? Procedure Note Donotuseinterpreter, Image - 06/11/2022 [place] [address] Ultrasound Report Signed Patient: Pippa Camilo IMR#: [id number] : 1960Acct:[id number] Age/Sex: 61 / FADM Date: 06/11/22 Loc: HO.US Attending Dr: Uli Prakash MD Ordering Physician: ULI PRAKASH MD Date of Service: 06/11/22 Procedure(s): US venous duplex LE RT Accession Number(s): [id number] cc: ULI PRAKASH MD EXAMINATION: US VENOUS [...] in OV> 06/11/22 1500 DD/ 1415 TD/TT: Field Marketing Manager: JOSE us [facility] External Provider CV VASC ULAR PROCEDURES Edited Result - Final [facility] IMAGING [address] [place] [address] * XR Chest 2 Views (05/19/2022 5:03 PM EDT) Anatomical Region Laterality Modality Chest Radiographic Suzanne ging 05/19/2022 5:03 PM EDT Narrative 05/25/2022 1:42 PM EDT ? [facility] ?[address] ?[place], [place] [address] ?XRay Report ? Signed ? Patient: Renetta Colon,Pippa I ?MR#: [id number] ?? [id number] ? : 1960 ?Acct:[id number] ? Age/Sex: 61 / F ?ADM Date: 05/19/22 ? Loc: HO.XRAY ? Attending Dr: Uli Prakash MD ? Ordering Physician: ULI PRAKASH MD ?? Date of Service: 05/19/22 ?? Procedure(s): XR chest 2V ?? Accession Number(s): [id number] ? cc: ULI PRAKASH MD ? EXAMINATION: [...] 1340 ? DD/ 1703 ? TD/TT: ? Field Marketing Manager: SERGIO ? Procedure Note Joanie, Image - 05/25/[address] [address] XRay Report Signed Patient: Pippa Camilo [facility]#: [id number] : 1960Acct:[id number] Age/Sex: 61 / FADM Date: 05/19/22 Loc: FEL[facility] Attending Dr: Uli Prakash MD Ordering Physician: ULI PRAKASH MD Date of Service: 05/19/22 Procedure(s): XR chest 2V Accession Number(s): [id number] cc: ULI PRAKASH MD EXAMINATION: XR CHEST [...] in OV> 05/25/22 1340 DD/ 1703 TD/TT: Field Marketing Manager: SERGIO [facility] External Provider IMG XR PROCEDURES Edited Result - Final documented in this encounter Visit Diagnoses Not on filedocumented in this encounter Care Teams Soils Analyst Relationship Specialty Start Date End Date Name, MD Edmund [address] [place] [address] PCP - General Family Medicine 04/04/15 documented as of this encounter
--- OUTSIDE RECORDS SUMMARY | 2024-07-09 11:27 | XMS_ITS | Encounter Summary ---
Author Organization [facility] Address [address] [place] [address] Care Team Providers Care Education Trainer Name Role Phone NameEdmund MD Primary Care Provider Unavailabl e Reason for Visit * Reason Onset Date Comments er follow up 07/20/2012 Christy Encounter Details Date Type Department Care Team Description 07/20/2012 Telephone Adult Medicine [address] [address] Name, MD Edmund er follow up (Gee) [...] Which ER did they go to? : [facility] Was the patient admitted? : No. How is the patient feeling? : no change in health status Disposition? : Appointment made for patient at [facility] in 5 day(s) Comments: pain in right side of brain documented in this encounter Plan of Treatment Not on file documented as of this encounter Visit Diagnoses Not on filedocumented in this encounter Care Teams Education Trainer Relationship Specialty Start Date End Date Name, MD Edmund PCP - General Internal Medicine 01/28/11 documented as of this encounter
--- OUTSIDE RECORDS SUMMARY | 2024-07-09 11:27 | XMS_ITS | Encounter Summary ---
Author Organization [employer] Address [address] [facility] 7t [place] [address] Care Team Providers Care Spray Technician Name Role Phone Name, Edmund HERNANDEZ Primary Care Provider Reason for Visit * Reason Onset Date Comments Appointment Request 05/16/2023 Encounter Details Date Type Department Care Team ([facility] st Contact Info) Description 05/16/2023 Telephone [facility] MEDICINE [address] [place], [place] [phone] Name, MD Edmund [address] [place] [address] Appointment Request Social History Tobacco Use Types [...] to cancel and reschedule appt for 05/15 underwriter did cancel per patients request documented in this encounter Plan of Treatment Upcoming Encounters Date Type Department Care Team (Late st Contact Info) Description 07/17/2024 10:00 AM EDT Office Visit [facility] MEDICINE [address] [place] [address] Name, MD Edmund [address] [place] [address] documented as of this encounter Visit Diagnoses Not on filedocumented in this encounter Care Teams Spray Technician Relationship Specialty Start Date End Date Name, MD Edmund [address] [place] [address] PCP - General Family Medicine 04/04/15 documented as of this encounter
--- OUTSIDE RECORDS SUMMARY | 2024-07-09 11:27 | XMS_ITS | Encounter Summary ---
Author Organization [employer] Address [address] [facility] 7t [place] [address] Care Team Providers Care Switch Repairer Name Role Phone Name, Edmund HERNANDEZ Primary Care Provider [phone] Reason for Visit * Reason Comments Med Refill Encounter Details Date Type Department Care Team ([facility] st Contact Info) Description 01/20/2024 Refill [facility] MEDICINE [address] [place], [place] [phone] Name, MD Edmund [address] [place] [address] Social History Tobacco Use Types Packs/Day Years [...] 10:00 AM EDT Office Visit [facility] MEDICINE [address] [place] [address] Name, MD Edmund [address] [place] [address] documented as of this encounter Visit Diagnoses Not on filedocumented in this encounter Additional Health Concerns Assessment Noted Time PHQ-9 Depression Total Score: 0 07/29/19 24 9:26 AM EDT documented as of this encounter Care Teams Switch Repairer Relationship Specialty Start Date End Date Name, MD Edmund [address] [place] [address] PCP - General Family Medicine 04/04/15 documented as of this encounter
--- OUTSIDE RECORDS SUMMARY | 2024-07-09 11:27 | XMS_ITS | Encounter Summary ---
Author Organization [employer] Address [address] [facility] 7t [place] [address] Care Team Providers Care Medical Social Worker Name Role Phone Name, Edmund HERNANDEZ Primary Care Provider [phone] Reason for Visit * Reason Comments Med Refill Encounter Details Date Type Department Care Team ([facility] st Contact Info) Description 05/06/2023 Refill [facility] [address] [place], [place] [phone] Name, MD Edmund [address] [place] [address] Social History Tobacco Use Types Packs/Day Years [...] t he electric, gas, oil or water [employer] threatened to shut off services in your [...] 10:00 AM EDT Office Visit [facility] [address] [place] [address] NameEdmund MD [address] [place] [address] documented as of this encounter Visit Diagnoses Not on filedocumented in this encounter Care Teams Medical Social Worker Relationship Specialty Start Date End Date NameEdmund MD [address] [place] [address] PCP - General Family Medicine 04/04/15 documented as of this encounter
--- OUTSIDE RECORDS SUMMARY | 2024-07-09 11:27 | XMS_ITS | Clinical Summary ---
Author Organization [employer] Address [address] [facility] [address] [place] [address] Care Team Providers Care Relocation Commissioner Name Role Phone Name, Edmund HERNANDEZ Primary Care Provider [phone] Allergies Active Allergy Reactions Criticality Noted Date Comments Alprazolam Nausea And Vomiting,Other,Swell ing 03/06/2008 Patient describes that she had a withdrawal from this medication causing extreme anxiety and dificulty breathin. She denies an actual allergy to this medicine Aspirin Nausea And Vomiting,Swelling High 03/06/2008 Other reaction(s): OTHER LegacyRecord#[id number] Throat closing Green Dye High 11/15/2018 IV DYE Iodinated Contrast Media Nausea And Vomiting,Swelling 03/06/2008 Other reaction(s): arm swelling Other reaction(s): OTHER Throat closing Iodine High 04/04/2015 Legacy[facility]#[id number] Tuberculin Ppd High 11/15/2018 Tuberculin Purified Protein Derivative 08/20/2022 Other reaction(s): ?reaction Tuberculin, Ppd 01/09/2013 LegacyRecord#[id number] Medications fluticasone (Flonase) 50 MCG/ACT nasal sprayIndication [...] day. 30 capsule 2 Active glucose blood ([employer]) test stripIndication s:Type 2 diabetes mellitus without complication, without long-term current use of insulin ([facility]) USE TO TEST BLOOD SUGAR ONCE A DAY 100 strip 11 024 Active hydrocortisone 2.5 % ointmentIndicat ions:Fissure in skin Apply topically 2 times daily. 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 Assessment & Plan (2023 3:54 PM EDT): In close care with oncology, utd on mammogram Hypertrophic condition of skin 10/26/2018 Overview (08/20/2022): Overview Note: Hypertrophic disorders of skin #7178868# EXT_ID: [id number] 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 Overview (08/20/2022): Overview Note: Monoarthritis, not elsewhere classified, knee #2672135# EXT_ID: [id number] Assessment & Plan (2023 4:01 PM EDT): Trial tramadol, Medication Indications, side effects and duration of therapy reviewed, pt aware to call clinic for worsening symptoms or failure to resolve Dry eye syndrome 10/04/2018 Overview (08/20/2022): Overview Note: Dry eye syndrome #[id number]# EXT_ID: [id number] Pain in knee 10/04/2018 Overview (08/20/2022): Overview Note: Pain in knee #0960274# EXT_ID: [id number] Intraductal carcinoma in situ of breast 08/04/19 19 Overview (08/20/2022): Overview Note: Intraductal carcinoma in situ of breast #9073120# EXT_ID: [id number] Benign mammary dysplasia 08/01/2018 Overview (08/20/2022): Overview Note: Other benign mammary dysplasias #0102439# EXT_ID: [id number] Mild persistent asthma 07/27/2018 Overview (08/20/2022): Overview Note: Mild intermittent asthma #2644087# EXT_ID: [id number] Assessment & Plan (06/13/2023 2:10 PM EDT): Stable mild intermittent, seasonal allergies are triggers, Anxiety disorder 07/27/2018 Overview (08/20/2022): The patient follows with Dr Taylor Overview Note: Other anxiety disorders #1940866# EXT_ID: [id number] Assessment & Plan (2023 3:55 PM EDT): Reports stable and well managed, continue current regimen Hypertension 07/27/2018 Overview (06/13/2023): At goal today, continue amlodipine and metoprolol, consider josefa or arb given concurrent dm, defer to pcp Joint pain 11/08/2017 Diabetes mellitus, type 2 05/21/2016 Overview (08/20/2022): Overview Note: Type 2 diabetes mellitus #0575207# EXT_ID: [id number] Allergic rhinitis 05/21/2016 Assessment & Plan (2023 [...] Overview (08/20/2022): Overview Note: Carpal tunnel syndrome #4913675# EXT_ID: [id number] Atypical lobular hyperplasia (ALH) of breast Overview (08/20/2022): Patient followed and [facility] and with Dr Avina. She was on Tamoxigen for 5 years Umbilical hernia 07/16/2011 Impaired fasting glucose 01/28/2011 Breast microcalcification, mammographic 01/09/20 11 Overview (08/20/2022): Biopsied in [place] 07-07-2009, fibrocystic disease. Acquired hypothyroidism 01/05/2011 Overview (08/20/2022): Overview Note: Other hypothyroidism #4292779# EXT_ID: [id number] Assessment & Plan (06/28/2023 11:56 AM EDT): [...] 12/08/2018 12/06/2023 Overview (08/20/2022): Overview Note: Cough #0342714# EXT_ID: [id number] Major depressive disorder, recurrent 10/26/2018 06/29/2023 Overview (04/06/2022): Overview Note: Major depressive disorder, recurrent #0876025# EXT_ID: [id number] Lung mass 01/08/2011 2023 Overview (08/20/2022): F/u recommended somewhere between 01/09 and 07/10 Abdominal pain 03/06/2008 12/06/2023 Overview (08/20/2022): Overview Note: Dorsalgia #5266187# EXT_ID: [id number] Cervical spine disc herniation Overview Note: Other abdominal pain #3181784# EXT_ID: [id number] Asthma 03/06/2008 12/06/2023 Assessment & Plan (07/30/2023 4:20 PM EDT): Recent exacerbation, no audible wheeze today, continue inhalers Assessment & Plan (2023 4:09 PM EDT): Continue current inhalers, seasonal allergies are trigger, monitor for increased albuterol usage Encounters Date Type Department Care Team Description 07/03/[address] [address] Edmund Valentino MD Medication Question; Med Refill 06/29/[address] [address] Edmund Valentino MD Mild intermittent asthma, unspecified whether complicated 06/11/2024 11:20 AM EDT Office Visit [facility] [address] [address] Freda Mauricio MD Subacute pansinusitis (Primary Dx); Body aches; Allergic rhinitis, unspecified seasonality, unspecified trigger 06/11/2024 Travel 05/16/2024 2:00 PM EDT [facility] [address] [address] Shona Blandon NP Dysphagia, unspecified type (Primary Dx); Cough in adult patient; Persistent cough; Hoarseness of voice; Lymphadenopathy of left cervical region 05/11/2024 1:20 PM EDT [facility] [address] [address] Yaa Daly MD History of strep pharyngitis (Primary Dx); Mild intermittent asthma, unspecified whether complicated; Neck pain on left side 05/11/2024 Travel 04/19/2024 10:45 AM EST Office Visit [address] [address] Alyssa Sandra MD Chronic bilateral low back pain with left-sided sciatica (Primary Dx) 04/19/2024 9:45 AM EST Office Visit [facility] [address] [place] [address] Name, MD Edmund Type 2 diabetes mellitus without complication, without long-term current use of insulin ([facility]) (Primary Dx); Acquired hypothyroidism; Strep throat from Last 3 Months Immunizations Name Administration [...] Description 07/17/2024 10:00 AM EDT Office Visit [facility] [address] [place] [address] Name, MD Edmund [address] [place] [address] Health Maintenance Due Date Last Done Comments [...] complication, without long-term current use of insulin ([facility]) ALBUMIN, RANDOM URINE W/CREATININE Routine 12/06/2023 10:00 AM EDT Type 2 diabetes mellitus without complication, without long-term current use of insulin ([facility]) POCT GLYCATED HEMOGLOBIN, TOTAL Routine 12/06/2023 9:03 AM EDT Type 2 diabetes mellitus without complication, without long-term current use of insulin ([facility]) BI MAMMOGRAM SCREENING TOMOSYNTHESIS BILATERAL Routine 07/05/2023 1:55 PM EDT LIPID PANEL, STANDARD Routine 06/07/2023 11:34 AM EDT Type 2 diabetes mellitus without complication, without long-term current use of insulin ([facility]) DIABETES EYE EXAM Routine 03/29/2023 COLONOSCOPY Routine 05/06/2021 PROPHYLAXIS - ADULT Routine 08/26/2020 1 2:00 AM EDT INTRAORAL - COMPLETE SERIES OF RADIOGRAPHIC IMAGES Routine 08/26/2020 12:00 AM EDT PERIODIC ORAL EVALUATION - ESTABLISHED PATIENT Routine 08/26/2020 12:00 AM EDT from Last 3 Months or Most Recently Relevant to Health Maintenance Results * Referral to ENT (06/26/2024) Shona Blandon NP OUTPATIENT REFERRAL ORDERABLES Final Result * POCT Rapid Influenza B HUMPHREY ID NOW (06/11/2024 11:44 AM EDT) Only the most recent of3 resultswithin the time period is included. Influenza B Negative Negative, Indeterminate [facility] QC Media Lot # [id number] [facility] Lot# Expiration Date [id number] [facility] Swab 06/11/2024 11:4 4 AM EDT Freda Mauricio MD POINT OF CARE TEST ENTER /EDIT ORDERABLES Final Result [facility] [address] [place] [phone] * POCT Rapid Influenza A HUMPHREY ID NOW (06/11/2024 11:44 AM EDT) Only the most recent of3 resultswithin the time period is included. Influenza A Negative Negative, Indeterminate [facility] QC Media Lot # [id number] [facility] Lot# Expiration Date 10,825 [facility] Swab 06/11/2024 11:4 4 AM EDT Freda Mauricio MD POINT OF CARE TEST ENTER /EDIT ORDERABLES Final Result [facility] [address] [place] [phone] * POCT Rapid Covid-19 BinaxNOW (06/11/2024 11:38 AM EDT) Only the most recent of2 resultswithin the time period is included. Pathologist [facility] Rapid COVID Ag Negative QC Media Lot # [id number] Lot# Expiration Date 90,426 Swab 06/11/2024 11:3 8 AM EDT Freda Mauricio MD POINT OF CARE TEST ENTER /EDIT ORDERABLES Final Result * XR Chest 2 Views (05/17/2024 11:56 AM EDT) Anatomical Region Laterality Modality Chest Radiographic Suzanne ging 05/17/2024 11:5 6 AM EDT Narrative 05/17/2024 12:27 PM EDT ?[facility] ?[address] ?[place] [address] ?XRay Report ? Signed ? Patient: Renetta Colon,Pippa I ?MR#: [id number] ?? [id number] ? : 1960 ?Acct:[id number] ? Age/Sex: 63 / F ?ADM Date: 03/20/25 ? Loc: HO.HHCX ? Attending Howie Blandon ? Ordering Physician: Shona Blandon ?? Date of Service: 05/17/24 ?? Procedure(s): XR chest 2V ?? Accession Number(s): [id number] ? cc: Shona Blandon ? EXAMINATION: ??XR [...] DD/ 1156 ? TD/TT: 05/17/24 1206 ? Manager Reliability: ? Procedure Note Joanie, Image - 05/17/2024 [place] [address] XRay Report Signed Patient: Pippa Camilo IMR#: [id number] : 1960Acct:[id number] Age/Sex: 63 / FADM Date: 05/17/24 Loc: HO.HHCX Attending Dr: Shona Blandon Ordering Physician: Shona Blandon Date of Service: 05/17/24 Procedure(s): XR chest 2V Accession Number(s): [id number] cc: Shona Blandon EXAMINATION: XR CHEST 2 [...] 05/17/24 1224 DD/ 1156 TD/TT: 05/17/24 1206 Manager Reliability: [facility] INDEPENDENT CROP CONSULTANT IMG XR PROCEDURES Final Result * POCT COVID-19 Ag Humphrey ID NOW (05/16/2024 2:10 PM EDT) [facility] Coronavirus Antigen PCR Negative Negative, Indeterminate, None Detected, Invalid, Specimen unsatisfactory for evaluation, Weakly Positive Swab 05/16/2024 2:10 PM EDT [facility] POINT OF CARE TEST ENTER/EDIT O RDERABLES Final Result * POCT rapid strep A manually resulted (05/16/2024 2:10 PM EDT) Only the most recent of2 resultswithin the time period is included. [facility] Rapid Strep A Screen Negative Negative, None Detected Swab 05/16/2024 2:10 PM EDT [facility] POINT OF CARE TEST ENTER/EDIT O RDERABLES Final Result * T-SPOT??.TB (05/11/2024 2:13 PM EDT) Only the most recent of2 resultswithin the time period is included. [facility] T Spot TB Negative Negative [facility] Comment:A negative test resu lt does [...] as aquantitative test. TS PANEL A 0 [facility] TS PANEL B 0 [facility] Negative Control Passed [facility] Positive Control Passed [facility] Comment:For additional infor mation, please refer tohttp://education.Celtaxsys/faq/SIY866(This link is being provided for informational/educational purposes only.)THIS TEST WAS PERFORMED AT:[employer] [id number] [place] [address]LTPRDPTMICHELLE HALL MD,PHD 05/11/2024 2:13 PM EDT 05/11/2024 4:20 PM EDT us Edmund Name LAB BLOOD ORDERABLES Final Resul t [facility] [address] [place] [phone] * (ABNORMAL) Basic Metabolic Panel (05/11/2024 2:13 PM EDT) Sodium 142 135 - 145 mmol/L [facility] Potassium 3.7 3.3 - 5.1 mmol/L [facility] Chloride 104 96 - 108 mmol/L [facility] Carbon Dioxide 30(H) 22 - 29 mmol/L [facility] Anion Gap 12 12 - 20 [facility] Urea Nitrogen (BUN) 17(H) 9 - 16 mg/dL [facility] Creatinine, Serum 0.74 0.5 - 1.4 mg/dL [facility] Estimated Glomerular Filt Rate >60 [facility] Comment:Chronic Kidney Disea se: Estimated GFR < 60 mL/min/1.86u7Mlkcfj Kidney Disease: Estimated GFR < 15 mL/min/1.73m2 Glucose 110 60 - 115 mg/dL [facility] Calcium 10.4(H) 8.4 - 10.2 mg/dL [facility] Blood Venous blood specimen / Unknown 05/11/2024 2:13 PM EDT 05/11/2024 4:20 PM EDT Yaa Daly MD LAB BLOOD ORDERABLES Final Re sult Performing Organization Address City/[facility]/ZIP Co de Phone Number [facility] [address] [place] [phone] * TSH W/Reflex to FT4 (04/19/2024 10:25 AM EST) TSH reflex Free T4 2.19 0.32 - 4.0 uIU/mL [facility] Blood Venous blood specimen / Unknown 04/19/2024 10:25 AM EST 04/19/2024 11:36 AM EST Edmund Valentino MD LAB BLOOD ORDERABLES Final Resul t Performing Organization Address [facility]/ZIP Co de Phone Number [facility] [address] [place] [phone] * POCT Glucose (04/19/2024 9:55 AM EST) Glucose Blood, POC 129 60 - 200 mg/dL QC Media Lot # [id number] Lot# Expiration Date Blood Capillary blood specimen / Unknown 04/19/2024 9:55 AM EST Edmund Valentino MD POINT OF CARE TEST ENTER/EDIT OR DERABLES Final Result * Albumin, Random Urine W/Creatinine (12/06/2023 10:00 AM EDT) Creatinine, Urine 123.16 mg/dL [facility] Microalbumin Urine 11.0 mg/L [facility] Microalbum Creatinine Ratio Ur 8.9 <30 ug/mg cr [facility] Comment:Albumin/Creatinine R atio Reference Ranges: Normal: < 30 ug/mg creatinine Microalbuminuria: 30 - 300 ug/mg creatinineClinical Albuminuria: > 300 ug/mg creatinine Urine (Urine, Random) 12/06/2023 10:00 AM EDT 12/06/2023 11:23 AM EDT us Edmund Valentino MD LAB URINE ORDERABLES Final Resul t [facility] [address] [place] [phone] * (ABNORMAL) POCT HGB A1C (12/06/2023 9:03 AM EDT) Hemoglobin A1C 6.6(A) 4.0 - 6.0 % QC Media Lot # [id number] Lot# Expiration Date ,142,026 Blood 12/06/2023 9:03 AM EDT us Edmund Valentino MD POINT OF CARE TEST ENTER/EDIT OR DERABLES Final Result * BI Mammogram Screening Tomosynthesis Bilateral (07/05/2023 1:55 PM EDT) Anatomical Region Laterality Modality Breast Bilateral Mammography 07/05/2023 1:55 PM EDT Narrative 08/04/2023 1:26 PM EDT ? [facility] ? [address] ?[place] [address] ? Mammography Report ? Signed ? Patient: Renetta Colon,Pippa I ?MR#: [id number] ?? [id number] ? : 1960 ?Acct:[id number] ? Age/Sex: 63 / F ?ADM Date: 05/07/24 ? Loc: HO.MAMMO ? Attending Dr: Tank Avina MD ? Ordering Physician: Tank Avina MD ?Results: 2Benig ?? n Findings ? Date of Service: 07/05/23 ?Follow Up: 1 Year From Orig ?? inal Mammogram ? Procedure(s): MM tomosynthesis screening BI ?? Accession Number(s): [id number] ? cc: Tank Avina MD; Name,Edmudn HERNANDEZ ? EXAMINATION: ?? MM SCREENING DIGITAL [...] 1323 ? DD/ 1355 ? TD/TT: ? Manager Reliability: ? Procedure Note Donotuseinterpreter, Image - 08/04/2023 [facility] [address] [place], [place] [address] Mammography Report Signed Patient: Pippa Camilo IMR#: [id number] : 1960Acct:[id number] Age/Sex: 63 / FADM Date: 07/05/23 Loc: HO.MAMMO Attending Dr: Tank Avina MD Ordering Physician: Tank Avina MDResults: 2Benig n Findings Date of Service: 07/05/23Follow Up: 1 Year From Orig inal Mammogram Procedure(s): MM tomosynthesis screening BI Accession Number(s): [id number] cc: Tank Avina MD; Name,Edmund HERNANDEZ EXAMINATION: [...] in OV> 08/04/23 1323 DD/ 1355 TD/TT: Manager Reliability: [facility] External Provider IMG BI PROCEDURES Final Result * (ABNORMAL) Lipid Panel, Standard (06/07/2023 11:34 AM EDT) Triglycerides 125 <150 mg/dL [facility] Comment:Desirable Triglyceri de: less than 150 mg/dLBorderline High Triglyceride 150-199 mg/dLHigh Triglyceride: 200-499 mg/dLVery High Triglyceride: greater than or equal to 5OO mg/dL Cholesterol 225(H) <200 mg/dL [facility] Comment:Desirable Cholestero l: less than 200 mg/dLBorderline High Cholesterol: 200-239 mg/dLHigh Cholesterol: greater than 239 mg/dL LDL Cholesterol Calculated 141(H) <100 mg/dL [facility] Comment:Desirable LDL: less than 100 mg/dLNear Optimal/Above Optimal LDL: 110- 129 mg/dLBorderline High LDL: 130-159 mg/dLHigh LDL: 160-189 mg/dLVery High LDL: greater than or equal to 190 mg/dL HDL Cholesterol 59 >40 mg/dL [facility] Comment:Desirable HDL: great er than 40 mg/dL Note: This HDL assay may give artificially low results in patients with liver disease. Blood Venous blood specimen / Unknown 06/07/2023 11:34 AM EDT 06/07/2023 1:12 PM EDT Beth Blanco NP LAB BLOOD ORDERABLES Final Resul t [facility] [address] [place], [place] [phone] * Diabetes Eye Exam (03/29/2023) Eye Exam Normal Normal 03/29/2023 us Edmund Name HEALTH MAINTENANCE Final Result * Colonoscopy (05/06/2021) Colonoscopy Normal Normal Narrative Rita Jimenez - 05/06/2021 Recommended 5 year follow up [facility] Provider HEALTH MAINTENANCE Final Result from Last 3 Months or Most Recently Relevant to Health Maintenance Insurance [facility] < [address] [facility] Care Teams Relocation Commissioner Relationship Specialty Start Date End Date Name, MD Edmund [address] [place] [phone] PCP - General Family Medicine 04/04/15
--- OUTSIDE RECORDS SUMMARY | 2024-07-09 11:27 | XMS_ITS | Encounter Summary ---
Author Organization [facility] Address [address] [place] [address] Care Team Providers Care Newspaper Delivery Driver Name Role Phone Name, Edmund HERNANDEZ Primary Care Provider Unavailabl e Encounter Details Date Type Department Care Team Description 05/30/2015 Business Doc Medical Records [address] [place] [id number] Abstract, Provider Social History Tobacco Use Types [...] on filedocumented in this encounter Care Teams Newspaper Delivery Driver Relationship Specialty Start Date End Date Name, MD Edmund PCP - General Internal Medicine 01/28/11 documented as of this encounter
--- OUTSIDE RECORDS SUMMARY | 2024-07-09 11:27 | XMS_ITS | Encounter Summary ---
Author Organization [employer] Address [address] [facility] 7t [place] [address] Care Team Providers Care Credit Clerk Name Role Phone Name, Edmund HERNANDEZ Primary Care Provider [phone] Reason for Visit * Reason Comments Med Refill Encounter Details Date Type Department Care Team ([facility] st Contact Info) Description 02/10/2024 Refill [facility] [address] [place], [place] [phone] Name, MD Edmund [address] [place] [address] Social History Tobacco Use Types Packs/Day Years [...] Description 07/17/2024 10:00 AM EDT Office Visit [facility] [address] [place] [address] Name, MD Edmund [address] [place] [address] documented as of this encounter Visit Diagnoses Not on filedocumented in this encounter Additional Health Concerns Assessment Noted Time PHQ-9 Depression Total Score: 0 07/29/19 24 9:26 AM EDT documented as of this encounter Care Teams Credit Clerk Relationship Specialty Start Date End Date Name, MD Edmund [address] [place] [phone] PCP - General Family Medicine 04/04/15 documented as of this encounter
--- OUTSIDE RECORDS SUMMARY | 2024-07-09 11:27 | XMS_ITS | Encounter Summary ---
Author Organization [employer] [facility] Address [address] [place] [address] Care Team Providers Care Paver Layer Name Role Phone Name, Edmund HERNANDEZ Primary Care Provider Unavailabl e Encounter Details Date Type Department Care Team Description 08/19/2014 Telesales Professional Report Medical Records [address] [place] [phone] Freddie Flores Social History Tobacco Use Types [...] on filedocumented in this encounter Care Teams Paver Layer Relationship Specialty Start Date End Date Name, MD Edmund PCP - General Internal Medicine 01/28/11 documented as of this encounter
--- OUTSIDE RECORDS SUMMARY | 2024-07-09 11:27 | XMS_ITS | Encounter Summary ---
Author Organization [employer] [facility] Address [address] [place] [address] Care Team Providers Care Automobile Or Truck Rental Dispatcher Name Role Phone Name, Edmund HERNANDEZ Primary Care Provider Unavailabl e Encounter Details Date Type Department Care Team Description 03/22/2013 Hospital Medical Records [address] [place] [address] Monica Figueroa Social History Tobacco Use Types [...] on filedocumented in this encounter Care Teams Automobile Or Truck Rental Dispatcher Relationship Specialty Start Date End Date Name, MD Edmund PCP - General Internal Medicine 01/28/11 documented as of this encounter
--- OUTSIDE RECORDS SUMMARY | 2024-07-09 11:27 | XMS_ITS | Encounter Summary ---
Author Organization [employer] Address [address] [facility] 7[address] [place] [address] Care Team Providers Care First Coat Sander Name Role Phone Name, Edmund HERNANDEZ Primary Care Provider [phone] Reason for Visit * Reason Comments Med Refill Encounter Details Date Type Department Care Team ([facility] st Contact Info) Description 01/27/2024 Refill [facility] [address] [place], [place] [phone] Beth Blanco, SALVATORE [address] [place] [address] Social History Tobacco Use Types Packs/Day Years [...] EDT Office Visit [facility] [address] [place] [phone] Name, MD Edmund [address] [place] [address] documented as of this encounter Visit Diagnoses Not on filedocumented in this encounter Additional Health Concerns Assessment Noted Time PHQ-9 Depression Total Score: 0 07/29/19 24 9:26 AM EDT documented as of this encounter Care Teams First Coat Sander Relationship Specialty Start Date End Date Name, MD Edmund [address] [place] [phone] PCP - General Family Medicine 04/04/15 documented as of this encounter
--- OUTSIDE RECORDS SUMMARY | 2024-07-09 11:27 | XMS_ITS | Encounter Summary ---
Author Organization [facility] Address [address] [place] [address] Care Team Providers Care Patient Support Partner Name Role Phone Name, Edmund HERNANDEZ Primary Care Provider Unavailabl e Encounter Details Date Type Department Care Team Description 10/14/2011 Proprietary Trader Report Medical Records [address] [place] [address] Karsten Beach PA-C Social History Tobacco Use [...] on filedocumented in this encounter Care Teams Patient Support Partner Relationship Specialty Start Date End Date Name, MD Edmund PCP - General Internal Medicine 01/28/11 documented as of this encounter
--- OUTSIDE RECORDS SUMMARY | 2024-07-09 11:27 | XMS_ITS | Encounter Summary ---
Author Organization [facility] Address [address] [place] [address] Care Team Providers Care Patient Ambassador Name Role Phone Name, Edmund HERNANDEZ Primary Care Provider Unavailabl e Encounter Details Date Type Department Care Team Description 05/08/2014 Golf Club Repairer Report Medical Records [address] [place] [address]261 Karsten Kohli MD Social History Tobacco Use [...] filedocumented in this encounter Care Teams Patient Ambassador Relationship Specialty Start Date End Date Name, MD Edmund PCP - General Internal Medicine 01/28/11 documented as of this encounter
--- OUTSIDE RECORDS SUMMARY | 2024-07-09 11:27 | XMS_ITS | Data Portability ---
Author Organization [employer] [facility] [place] [facility] [employer] Address [address] [place] [address] Care Team Providers Care Pari Mutuel Clerk Name Role Phone HIM CCA OTHER NAMECOREY Primary Care Provider Assessment Encounter Date Assessment Date Assessment LastModified by Organization Details LastModified Time 07/01/2024 07/01/2024 I provided real -time medical direction via phone for this encounter, and was available for additional phone based assistance as needed. I have reviewed and agree with the Assessment and Plan as documented by the Anesthesiologist And Critical Care. We discussed the diagnostic uncertainty of home [...] ED eval. Family verbalized understanding of instructions. [email or web address] Not available 07/01/2024 11:27:29 Plan of Treatment Reminders Order Date Submit Date Provider Last Modified By Organization Details Last Modified Time Details Appointments None recorded. Lab None recorded. Referral None recorded. Procedures None recorded. Surgeries None recorded. Imaging None recorded. Medication Orders lidocaine 5 % topical patch 2024 025 [id number], [address] [place], [place], [id number], 10:32:00 Patient TargetsNo targets recorded. Patient InstructionsNo instructions recorded. Reason for Referral None Reported. Medical Equipment None Reported. Allergies Allergen ID Allergen Name Allergen Category Reaction Reaction Severity Criticality Documentation Date Start Date Code Code System Note Provider Name and Address Organization Details Recorded Time 76080 purified protein derivativ e of tuberculi n medicatio n Not available Not available Not available 06/30/2024 6748 RxNorm Not Available [facility] - production 5 [...] Updated DateTime 5 79 /min 18 /min 71610.5 76 g 152.4 cm 95 % 95 [...] SNOMED-CT Code Diagnosis ICD10 Code Diagnosis Note [id number] SOMMER LIU NP, S Main - instED [address] [place] [phone] 07/01/2024 10:24:45 07/02/2024 00:12:40 Chronic low back pain [id number] M54.42 M54.41 G89.29 Patient has hx of [...] Hernandez Member ID Guarantor Name 06/30/2024 1 [id number] - DOS ON OR AFTER 2022 - DUAL ELIGIBLE - FDC OPTIONS AND ONE CARE (MEDICARE REPLACEMENT/ADV ANTAGE - HMO) Pippa Jackson [id number] Pippa Jackson Notes Date Note Type Note [...] .................... .................... .................... .................... .................... .................... . Anesthesiologist And Critical Care Note From America Rose: [facility] makes pt contact. She opens the door [...] Pt consents to evaluation and treatment today. [facility] obtains pt consent. Vitals signs are gathered [...] swelling is noted bilaterally and is equal. [facility] contacts [facility] and discusses the above. [facility] recommends heat and ice, gentle stretching, and will prescribe a lidocaine gel or patch for pt. [facility] will also message pt's care team to request a refill of her tramadol. [facility] instructs pt to decrease her Tylenol intake [...] the development of saddle paralysis. Pt thanks [facility] for visit. [facility] is clear. Report completed by JUAN Rose [id number]. .................... .................... .................... .................... .................... .................... .................... . [facility] Consulted: Sommer Liu .................... .................... .................... .................... .................... .................... .................... . Disposition: Fulfilled SOMMER LIU NP, [address] [place] [address],[address], [place], [address], [employer]ments[employer]IPE MORTENSEN 07/01/2024 11:44:34 OBGyn Episode No OBEpisode recorded.
--- OUTSIDE RECORDS SUMMARY | 2024-07-09 11:27 | XMS_ITS | Encounter Summary ---
Author Organization [employer] [facility] Address [address] [place] [address] Care Team Providers Care Optical Dispenser Name Role Phone Name, Edmund HERNANDEZ Primary Care Provider Unavailabl e Encounter Details Date Type Department Care Team Description 08/06/2013 Business Applications Developer Report Medical Records [address] [place] [address] Karsten Kohli MD Social History Tobacco Use [...] filedocumented in this encounter Care Teams Optical Dispenser Relationship Specialty Start Date End Date Name, MD Edmund PCP - General Internal Medicine 01/28/11 documented as of this encounter
--- OUTSIDE RECORDS SUMMARY | 2024-07-09 11:27 | XMS_ITS | Encounter Summary ---
Author Organization [facility] Address [address] [place] [address] Care Team Providers Care Tool Design Engineer Name Role Phone Name, Edmund HERNANDEZ Primary Care Provider Unavailabl e Encounter Details Date Type Department Care Team Description 10/12/2011 Business Doc Medical Records [address] [place] [address] Abstract, Provider Social History Tobacco Use Types [...] filedocumented in this encounter Care Teams Tool Design Engineer Relationship Specialty Start Date End Date Name, MD Edmund PCP - General Internal Medicine 01/28/11 documented as of this encounter
--- OUTSIDE RECORDS SUMMARY | 2024-07-09 11:27 | XMS_ITS | Encounter Summary ---
Author Organization [employer] [facility] Address [address] [place] [address] Care Team Providers Care Terrazzo Grinder Name Role Phone Name, Edmund HERNANDEZ Primary Care Provider Unavailabl e Encounter Details Date Type Department Care Team Description 07/19/2014 Hereditary Cancer Qu iz Results Medical Records [address] [place] [address] Abstract, Provider Social History Tobacco Use Types [...] filedocumented in this encounter Care Teams Terrazzo Grinder Relationship Specialty Start Date End Date Name, MD Edmund PCP - General Internal Medicine 01/28/11 documented as of this encounter
--- OUTSIDE RECORDS SUMMARY | 2024-07-09 11:27 | XMS_ITS | Encounter Summary ---
Author Organization [facility] Address [address] [place] [address] Care Team Providers Care Conditioner Tumbler Operator Name Role Phone Name, Edmund HERNANDEZ Primary Care Provider Unavailabl e Encounter Details Date Type Department Care Team Description 11/15/2013 Release of Information Medical Records [address] [place] [address] Abstract, Provider Social History Tobacco Use Types [...] on filedocumented in this encounter Care Teams Conditioner Tumbler Operator Relationship Specialty Start Date End Date Name, MD Edmund PCP - General Internal Medicine 01/28/11 documented as of this encounter
--- OUTSIDE RECORDS SUMMARY | 2024-07-09 11:27 | XMS_ITS | Encounter Summary ---
Author Organization [employer] Address [address] [facility] 7t [place] [address] Care Team Providers Care Extras Casting Director Name Role Phone Name, Edmund HERNANDEZ Primary Care Provider [phone] Reason for Visit * Reason Comments Med Refill Encounter Details Date Type Department Care Team ([facility] st Contact Info) Description 10/04/2023 Refill [facility] MEDICINE [address] [place], [place] [phone] Name, MD Edmund [address] [place] [address] Mild intermittent asthma, unspecified whether complicated Social [...] Description 07/17/2024 10:00 AM EDT Office Visit [facility] MED[facility]INE [address] [place] [address] Name, MD Edmund [address] [place] [address] documented as of this encounter Visit Diagnoses Diagnosis Mild intermittent asthma, unspecified whether complicated documented in this encounter Additional Health Concerns Assessment Noted Time PHQ-9 Depression Total Score: 0 07/29/19 24 9:26 AM EDT documented as of this encounter Care Teams Extras Casting Director Relationship Specialty Start Date End Date NameEdmund MD [address] [place] [address] PCP - General Family Medicine 04/04/15 documented as of this encounter
--- OUTSIDE RECORDS SUMMARY | 2024-07-09 11:27 | XMS_ITS | Encounter Summary ---
Author Organization [employer] Address [address] [facility] 7t [place] [address] Care Team Providers Care Water Purification Chemist Name Role Phone Name, Edmund HERNANDEZ Primary Care Provider [phone] Reason for Visit * Reason Comments Med Refill Encounter Details Date Type Department Care Team ([facility] st Contact Info) Description 01/19/2023 Refill [facility] MED & PEDS [address] [place], [place] [phone] Name, MD Edmund [address] [place] [address] Social History Tobacco Use Types Packs/Day Years [...] t he electric, gas, oil or water [employer] threatened to shut off services in your [...] Visit [facility] MEDICINE [address] [place] [address] NameEdmund MD [address] [place] [address] documented as of this encounter Visit Diagnoses Not on filedocumented in this encounter Care Teams Water Purification Chemist Relationship Specialty Start Date End Date Edmund Valentino MD [address] [place] [address] PCP - General Family Medicine 04/04/15 documented as of this encounter
--- OUTSIDE RECORDS SUMMARY | 2024-07-09 11:27 | XMS_ITS | Encounter Summary ---
Author Organization [employer] [facility] Address [address] [place] [address] Care Team Providers Care Glass Finisher Name Role Phone Name, Edmund HERNANDEZ Primary Care Provider Unavailabl e Encounter Details Date Type Department Care Team Description 02/19/2015 Photovoltaic Solar Cell Designer Report Medical Records [address] [place] [address] Karsten Kohli MD Social History Tobacco Use [...] on filedocumented in this encounter Care Teams Glass Finisher Relationship Specialty Start Date End Date Name, MD Edmund PCP - General Internal Medicine 01/28/11 documented as of this encounter
--- OUTSIDE RECORDS SUMMARY | 2024-07-09 11:27 | XMS_ITS | Encounter Summary ---
Author Organization [employer] Address [address] [facility] 7t [place] [address] Care Team Providers Care Sr. Payroll Manager Name Role Phone Name, Edmund HERNANDEZ Primary Care Provider [phone] Reason for Visit * Reason Onset Date Comments mail appt slip 03/15/2024 Encounter Details Date Type Department Care Team ([facility] st Contact Info) Description 03/15/2024 Telephone [facility] ADULT DENTAL [address] [place] [address] Lillie Witt mail appt slip Social History [...] 10:00 AM EDT Office Visit [facility] MEDICINE [address] [place] [address] Name, MD Edmund [address] [place] [address] documented as of this encounter Visit Diagnoses Not on filedocumented in this encounter Additional Health Concerns Assessment Noted Time PHQ-9 Depression Total Score: 0 07/29/19 24 9:26 AM EDT documented as of this encounter Care Teams Sr. Payroll Manager Relationship Specialty Start Date End Date Name, MD Edmund [address] [place] [address] PCP - General Family Medicine 04/04/15 documented as of this encounter
--- OUTSIDE RECORDS SUMMARY | 2024-07-09 11:27 | XMS_ITS | Encounter Summary ---
Author Organization [employer] Address [address] [facility] 7t [place] [address] Care Team Providers Care Social And Human Services Assistant Name Role Phone Name, Edmund HERNANDEZ Primary Care Provider [phone] Reason for Visit * Reason Comments Med Refill Encounter Details Date Type Department Care Team ([facility] st Contact Info) Description 09/23/2023 Refill [facility] MEDICINE [address] [place], [place] [phone] Name, MD Edmund [address] [place] [address] Mild intermittent asthma, unspecified whether complicated Social [...] 10:00 AM EDT Office Visit [facility] MEDICINE [address] [place] [address] Name, MD Edmund [address] [place] [address] documented as of this encounter Visit Diagnoses Diagnosis Mild intermittent asthma, unspecified whether complicated documented in this encounter Additional Health Concerns Assessment Noted Time PHQ-9 Depression Total Score: 0 07/29/19 24 9:26 AM EDT documented as of this encounter Care Teams Social And Human Services Assistant Relationship Specialty Start Date End Date NameEdmund MD [address] [place] [address] PCP - General Family Medicine 04/04/15 documented as of this encounter
--- OUTSIDE RECORDS SUMMARY | 2024-07-09 11:27 | XMS_ITS | Encounter Summary ---
Author Organization [employer] [facility] Address [address] [place] [address] Care Team Providers Care Wallpaper Inspector And Shipper Name Role Phone Name, Edmund HERNANDEZ Primary Care Provider Unavailabl e Encounter Details Date Type Department Care Team Description 10/14/2011 Release of Information Medical Records [address] [place] [address] Abstract, Provider Social History Tobacco Use Types [...] on filedocumented in this encounter Care Teams Wallpaper Inspector And Shipper Relationship Specialty Start Date End Date Name, MD Edmund PCP - General Internal Medicine 01/28/11 documented as of this encounter
--- OUTSIDE RECORDS SUMMARY | 2024-07-09 11:27 | XMS_ITS | Encounter Summary ---
Author Organization [email or web address] Address [address] [facility] 7t [place] [address] Care Team Providers Care Medical Lab Specialist Name Role Phone Name, Edmund HERNANDEZ Primary Care Provider [phone] Reason for Visit * Reason Comments Med Refill Encounter Details Date Type Department Care Team ([facility] st Contact Info) Description 01/06/2024 Refill [facility] MEDICINE [address] [place], [place] [phone] Beth Blanco, SALVATORE [address] [place] [address] Social History Tobacco Use Types Packs/Day Years [...] Description 07/17/2024 10:00 AM EDT Office Visit [facility] MEDICINE [address] [place] [address] Name, MD Edmund [address] [place] [address] documented as of this encounter Visit Diagnoses Not on filedocumented in this encounter Additional Health Concerns Assessment Noted Time PHQ-9 Depression Total Score: 0 07/29/19 24 9:26 AM EDT documented as of this encounter Care Teams Medical Lab Specialist Relationship Specialty Start Date End Date Name, MD Edmund [address] [place] [address] PCP - General Family Medicine 04/04/15 documented as of this encounter
--- OUTSIDE RECORDS SUMMARY | 2024-07-09 11:27 | XMS_ITS | Encounter Summary ---
Author Organization [facility] Address [address] [place] [address] Care Team Providers Care Stitching Department Supervisor Name Role Phone Name, Edmund HERNANDEZ Primary Care Provider Unavailabl e Encounter Details Date Type Department Care Team Description 07/26/2014 Business Doc Medical Records [address] [place] [address] Abstract, Provider Social History Tobacco Use Types [...] on filedocumented in this encounter Care Teams Stitching Department Supervisor Relationship Specialty Start Date End Date Name, MD Edmund PCP - General Internal Medicine 01/28/11 documented as of this encounter
--- OUTSIDE RECORDS SUMMARY | 2024-07-09 11:27 | XMS_ITS | Encounter Summary ---
Author Organization [employer] [facility] Address [address] [place] [address] 7 [place] [address] Care Team Providers Care Cupola Tender Name Role Phone Name, Edmund HERNANDEZ Primary Care Provider [phone] Encounter Details Date Type Department Care Team (Latest Contact Info) Description 08/26/2020 Abstract [facility] CONVERSIONS Dental, Provider, DDS Social History [...] 10:00 AM EDT Office Visit [facility] MEDICINE [address] [place] [address] Edmund Valentino MD [address] [place] [address] documented as of this encounter Visit Diagnoses Not on filedocumented in this encounter Care Teams Cupola Tender Relationship Specialty Start Date End Date Edmund Valentino MD [address] [place] [address] PCP - General Family Medicine 04/04/15 documented as of this encounter
--- OUTSIDE RECORDS SUMMARY | 2024-07-09 11:27 | XMS_ITS | Encounter Summary ---
Author Organization [employer] Address [address] [facility] 7t [place] [address] Care Team Providers Care Healthcare Sales Representative Name Role Phone Name, Edmund HERNANDEZ Primary Care Provider [phone] Reason for Visit * Reason Comments Med Refill Encounter Details Date Type Department Care Team ([facility] st Contact Info) Description 12/30/2022 Refill [facility] MED [facility]EDS [address] [place], [place] [phone] Name, MD Edmund [address] [place] [address] Social History Tobacco Use Types Packs/Day Years [...] t he electric, gas, oil or water [employer] threatened to shut off services in your [...] Description 07/17/2024 10:00 AM EDT Office Visit [facility] [address] [place] [address] NameEdmund MD [address] [place] [address] documented as of this encounter Visit Diagnoses Not on filedocumented in this encounter Care Teams Healthcare Sales Representative Relationship Specialty Start Date End Date Edmund Valentino MD [address] [place] [address] PCP - General Family Medicine 04/04/15 documented as of this encounter
--- OUTSIDE RECORDS SUMMARY | 2024-07-09 11:28 | XMS_ITS | Encounter Summary ---
Author Organization [employer] [facility] Address [address] [place] [address] [address], [place] [address] Care Team Providers Care Digital Sales Director Name Role Phone Name, Edmund HERNANDEZ Primary Care Provider [phone] Encounter Details Date Type Department Care Team (Late Contact Info) Description 08/19/2022 Abstract [facility] MEDICINE [address] [place] [address] [phone] NameEdmund MD [address] [place] [address] Social History Tobacco Use Types Packs/Day Years [...] 07/17/2024 10:00 AM EDT Office Visit [facility] MEDICINE [address] [place] [address] [phone] NameEdmund MD [address] [place] [address] [phone] documented as of this encounter Visit Diagnoses Not on filedocumented in this encounter Care Teams Digital Sales Director Relationship Specialty Start Date End Date Name, MD Edmund [address] [place] [address] PCP - General Family Medicine 04/04/15 documented as of this encounter
--- OUTSIDE RECORDS SUMMARY | 2024-07-09 11:28 | XMS_ITS | Encounter Summary ---
Author Organization [employer] Address [address] [facility] 7t [place] [address] Care Team Providers Care Miner Placer Name Role Phone Name, Edmund HERNANDEZ Primary Care Provider [phone] Reason for Visit * Reason Comments Med Refill Encounter Details Date Type Department Care Team ([facility] st Contact Info) Description 06/24/2023 Refill [facility] MEDICINE [address] [place], [place] [phone] Beth Blanco, SALVATORE [address] [place] [address] Social History Tobacco Use Types Packs/Day Years [...] t he electric, gas, oil or water [employer] threatened to shut off services in your [...] 10:00 AM EDT Office Visit [facility] MEDICINE [address] [place] [address] NameEdmund MD [address] [place] [address] documented as of this encounter Visit Diagnoses Not on filedocumented in this encounter Care Teams Miner Placer Relationship Specialty Start Date End Date NameEdmund MD [address] [place] [address] PCP - General Family Medicine 04/04/15 documented as of this encounter
--- OUTSIDE RECORDS SUMMARY | 2024-07-09 11:28 | XMS_ITS | Encounter Summary ---
Author Organization [employer] Address [address] [facility] [address] [address] Care Team Providers Care Manager Social Name Role Phone Name, Edmund HERNANDEZ Primary Care Provider [phone] Reason for Visit * Reason Onset Date Comments Pre OP 06/30/2022 Encounter Details Date Type Department Care Team ([facility] st Contact Info) Description 06/30/2022 Telephone [facility] MEDICINE [address] [place] [address] [phone] Name, MD Edmund [address] [place] [address] Pre OP Social History Tobacco Use Types [...] repair on 09/22/[address] Cobb at [facility]. Pt will be under general and popliteal [...] 2:33 PM EDT Tc from Bill from [facility] orthopedics returning call for PRE-OP appt , please see notes also stated surgeon will place order for EKG. Please contact at [phone] * Telephone Encounter - Julee Chung - 06/30/2022 1:46 PM EDT TC from Bill from [facility] requesting a PRE-OP Location: [address] Procedure: tendon repair Date of procedure: 09/22/22 @ 11:30am Labs: yes Ekg: yes Anesthesia Type : general and popliteal block Surgeon Name: donna tomlinson documented in this encounter Plan of Treatment Upcoming Encounters Date Type Department Care Team (Late st Contact Info) Description 07/17/2024 10:00 AM EDT Office Visit [facility] MEDICINE [address] [place] [address] Name, MD Edmund [address] [place] [address] documented as of this encounter Visit Diagnoses Not on filedocumented in this encounter Care Teams Manager Social Relationship Specialty Start Date End Date Name, MD Edmund [address] [place] [address] PCP - General Family Medicine 04/04/15 documented as of this encounter
--- OUTSIDE RECORDS SUMMARY | 2024-07-09 11:28 | XMS_ITS | Encounter Summary ---
Author Organization [employer] Address [address] [facility] 7 [place] [address] Care Team Providers Care Center Line Cutter Operator Name Role Phone Name, Edmund HERNANDEZ Primary Care Provider [phone] Reason for Visit * Reason Onset Date Comments Medication Question 07/03/2024 Med Refill 07/03/2024 Encounter Details Date Type Department Care Team ([facility] st Contact Info) Description 07/03/2024 Telephone [facility] [address] [place], [place] [phone] Name, MD Edmund [address] [place], [place] [phone] Medication Question; Med Refill Social History Tobacco [...] encounter Miscellaneous Notes * Telephone Encounter - Jo Ann Montes RN - 07/09/2024 10:03 AM EDT TC x 2 placed to pt via [employer] sql consultant (Kvng ID#[id number]) regarding below message about tramadol. Nolalo, LVM to call office back and ask to speak to the blue team nurses. * Telephone Encounter - Mary Ann Serna - 07/03/2024 8:41 AM EDT TC from pt requesting status on medication traMADol (Ultram) 50 MG tablet. Pt stated she was evaluated by paramedics on 07/01/24 due to back and leg pain and was advised they will send a request to pt PCP for Tramadol 50mg. To be sent to: [id number] - [place], [place] - [address] AT [facility] IF any questions contact pt at [phone] (bolivian) documented in this encounter Plan of Treatment Upcoming Encounters Date Type Department Care Team (Late st Contact Info) Description 07/17/2024 10:00 AM EDT Office Visit [facility] [address] [place] [address] Name, MD Edmund [address] [place] [address] documented as of this encounter Visit Diagnoses Not on filedocumented in this encounter Additional Health Concerns Assessment Noted Time PHQ-9 Depression Total Score: 0 07/29/19 24 9:26 AM EDT documented as of this encounter Care Teams Center Line Cutter Operator Relationship Specialty Start Date End Date Name, MD Edmund [address] [place] [phone] PCP - General Family Medicine 04/04/15 documented as of this encounter
--- OUTSIDE RECORDS SUMMARY | 2024-07-09 11:28 | XMS_ITS | Encounter Summary ---
Author Organization [employer] [facility] Address [address] [facility] 7 [place] [address] Care Team Providers Care House Piping Inspector Name Role Phone Name, Edmund HERNANDEZ Primary Care Provider [phone] Encounter Details Date Type Department Care Team (Late st Contact Info) Description 09/02/2022 Abstract [facility] [address] [place] [address] [phone] Name, MD Edmund [address] [place] [phone] Social History Tobacco Use Types Packs/Day Years [...] Description 07/17/2024 10:00 AM EDT Office Visit [facility] [address] [place] [address] [phone] Name, MD Edmund [address] [place] [address] documented as of this encounter Visit Diagnoses Not on filedocumented in this encounter Care Teams House Piping Inspector Relationship Specialty Start Date End Date Name, MD Edmund [address] [place] [address] PCP - General Family Medicine 04/04/15 documented as of this encounter
--- OUTSIDE RECORDS SUMMARY | 2024-07-09 11:28 | XMS_ITS | Encounter Summary ---
Author Organization [facility] Address [address] [facility] 7 [place] [address] Care Team Providers Care Instructional Support Assistant Name Role Phone Name, Edmund HERNANDEZ Primary Care Provider [phone] Encounter Details Date Type Department Care Team (Late st Contact Info) Description 09/07/2022 Abstract [facility] [address] [place] [address] [phone] Name, MD Edmund [address] [place] [phone] Social History Tobacco Use Types Packs/Day Years [...] Description 07/17/2024 10:00 AM EDT Office Visit [facility] [address] [place] [address] [phone] Name, MD Edmund [address] [place] [address] documented as of this encounter Procedures Procedure Name Priority Date/Time Associated Diagnosis Comments COLONOSCOPY Routine 05/06/2021 documented in this encounter Results * Hm Colonoscopy (05/06/2021) Colonoscopy Normal Normal Narrative Rita Jimenez - 05/06/2021 Recommended 5 year follow up us Historical Provider HEALTH MAINTENANCE Final Result documented in this encounter Visit Diagnoses Not on filedocumented in this encounter Care Teams Instructional Support Assistant Relationship Specialty Start Date End Date Name, [place] [address] PCP - General Family Medicine 04/04/15 documented as of this encounter
--- OUTSIDE RECORDS SUMMARY | 2024-07-09 11:28 | XMS_ITS | Encounter Summary ---
Author Organization [employer] [facility] Address [address] [place] [address], [place] [address] Care Team Providers Care Technology Engineer Name Role Phone Name, Edmund HERNANDEZ Primary Care Provider [phone] Encounter Details Date Type Department Care Team (Late Contact Info) Description 07/30/[address] [facility]INE [address] [place] [address] [phone] NameEdmund MD [address] [place] [phone] Social History Tobacco Use Types Packs/Day Years [...] [facility] [address] [place] [address] [phone] NameEdmund MD [address] [place] [address] [phone] documented as of this encounter Visit Diagnoses Not on filedocumented in this encounter Care Teams Technology Engineer Relationship Specialty Start Date End Date Name, MD Edmund [address] [place] [address] PCP - General Family Medicine 04/04/15 documented as of this encounter
== END 2024-07-09 11:14 | disposition home or self-care (01) ==
PROVIDERS: PCP Internal Medicine Geriatric Medicine; Referring Provider Physician Assistant; Visit Provider Internal Medicine
DX: M16.0 Bilateral primary osteoarthritis of hip (principal); M25.551 Pain in right hip; M25.552 Pain in left hip
CPT/HCPCS: 99204

== ENCOUNTER → 2024-07-09 10:41 | Outpatient (BNVA) | payer OTHER, SELFPAY | PROVIDERS: PCP Internal Medicine Geriatric Medicine; Referring Provider Physician Assistant; Visit Provider Internal Medicine | DX: M16.0 Bilateral primary osteoarthritis of hip (principal); M25.551 Pain in right hip; M25.552 Pain in left hip | CPT/HCPCS: 99202 ==

== ENCOUNTER → 2024-07-10 13:30 | Outpatient (BNV) | payer OTHER, SELFPAY | PROVIDERS: PCP Internal Medicine Geriatric Medicine; Visit Provider Internal Medicine | DX: Z12.31 Encounter for screening mammogram for malignant neoplasm of breast (principal) | CPT/HCPCS: 77063; 77067 ==

== ENCOUNTER 2024-07-10 13:35 | Outpatient (REF) | payer OTHER, SELFPAY ==
--- OUTSIDE RECORDS SUMMARY | 2024-07-10 14:41 | XMS_ITS | Encounter Summary ---
Author Organization [employer] Address [address] [facility] 7t [place] [address] Care Team Providers Care Supervisor Toy Assembly Name Role Phone Name, Edmund HERNANDEZ Primary Care Provider [phone] Reason for Visit * Reason Onset Date Comments mail appt slip 03/15/2024 Encounter Details Date Type Department Care Team ([facility] st Contact Info) Description 03/15/2024 Telephone [facility] [address] [place] [address] Lillie Witt mail appt slip Social History [...] AM EDT Office Visit [facility] [address] [place] [phone] Name, MD Edmund [address] [place] [address] documented as of this encounter Visit Diagnoses Not on filedocumented in this encounter Additional Health Concerns Assessment Noted Time PHQ-9 Depression Total Score: 0 07/29/19 24 9:26 AM EDT documented as of this encounter Care Teams Supervisor Toy Assembly Relationship Specialty Start Date End Date Name, MD Edmund [address] [place] [phone] PCP - General Family Medicine 04/04/15 documented as of this encounter
--- OUTSIDE RECORDS SUMMARY | 2024-07-10 14:41 | XMS_ITS | Clinical Summary ---
Author Organization [employer] Address [address] [facility] 7 [place] [address] Care Team Providers Care Geotechnical Department Manager Name Role Phone Name, Edmund HERNANDEZ Primary Care Provider Allergies Active Allergy Reactions Criticality Noted Date Comments Alprazolam Nausea And Vomiting,Other,Swell ing 03/06/2008 Patient describes that she had a withdrawal from this medication causing extreme anxiety and dificulty breathin. She denies an actual allergy to this medicine Aspirin Nausea And Vomiting,Swelling High 03/06/2008 Other reaction(s): OTHER LegacyRecord#[id number] Throat closing Green Dye High 11/15/2018 IV DYE Iodinated Contrast Media Nausea And Vomiting,Swelling 03/06/2008 Other reaction(s): arm swelling Other reaction(s): OTHER Throat closing Iodine High 04/04/2015 LegacyRecord#[id number] Tuberculin Ppd High 11/15/2018 Tuberculin Purified Protein Derivative 08/20/2022 Other reaction(s): ?reaction Tuberculin, Ppd 01/09/2013 LegacyRecord#[id number] Medications fluticasone (Flonase) 50 MCG/ACT nasal sprayIndication [...] day. 30 capsule 2 Active glucose blood (SportPursuitTouch Verio) test stripIndication s:Type 2 diabetes mellitus without complication, without long-term current use of insulin ([facility]) USE TO TEST BLOOD SUGAR ONCE A DAY 100 strip 11 024 Active hydrocortisone 2.5 % ointmentIndicat ions:Fissure in skin Apply topically 2 times daily. 20 g 024 Active Dulaglutide (Trulicity) 0.75 MG/0.5ML solution auto-injectorIn dications:Type 2 diabetes mellitus without complication, without long-term current use of insulin (CMS/[facility]) Inject 0.5 mL (0.75 mg) under the skin 1 (one) time per week. INJECT 0.5 ML SUBCUTANEOUSLY EVERY WEEK. 2 mL 5 Active OneTouch Delica Lancets 33G misc USE TO TEST BLOOD SUGAR EVERY DAY 100 each Active metFORMIN (Glucophage) 500 MG tabletIndicatio ns:Type [...] HORAS REBECA SEA NECESARIO 18 g 3 07/10/19 25 11:29 AM EDT 025 Active levothyroxine (Synthroid, Levoxyl) 88 MCG tablet JAMES 1 TABLETA POR LA BOCA EN LA MANANA ANTES DE DESAYUNO 90 tablet 3 07/10/19 25 11:29 AM EDT 025 Active levothyroxine (Synthroid, Levoxyl) 88 MCG [...] aware that if helpful will meet with nursing aide Health maintenance examination 06/05/2023 Bradycardia 08/20/2022 Bradycardia [...] Constipation 12/08/2018 Overview (08/20/2022): Overview Note: Constipation #[id number]# EXT_ID: [id number] Breast cancer 11/15/2018 Overview (08/20/2022): Right DCIS in 2015, on tamoxifen, 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 Assessment & Plan (2023 3:54 PM EDT): In close care with oncology, utd on mammogram Hypertrophic condition of skin 10/26/2018 Overview (08/20/2022): Overview Note: Hypertrophic disorders of skin #[id number]# EXT_ID: [id number] 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 Overview (08/20/2022): Overview Note: Monoarthritis, not elsewhere classified, knee #[id number]# EXT_ID: [id number] Assessment & Plan (2023 4:01 PM EDT): Trial tramadol, Medication Indications, side effects and duration of therapy reviewed, pt aware to call clinic for worsening symptoms or failure to resolve Dry eye syndrome 10/04/2018 Overview (08/20/2022): Overview Note: Dry eye syndrome #[id number]# EXT_ID: [id number] Pain in knee 10/04/2018 Overview (08/20/2022): Overview Note: Pain in knee #5317309# EXT_ID: [id number] Intraductal carcinoma in situ of breast 08/04/19 19 Overview (08/20/2022): Overview Note: Intraductal carcinoma in situ of breast #3625649# EXT_ID: [id number] Benign mammary dysplasia 08/01/2018 Overview (08/20/2022): Overview Note: Other benign mammary dysplasias #9361574# EXT_ID: [id number] Mild persistent asthma 07/27/2018 Overview (08/20/2022): Overview Note: Mild intermittent asthma #4460548# EXT_ID: [id number] Assessment & Plan (06/13/2023 2:10 PM EDT): Stable mild intermittent, seasonal allergies are triggers, Anxiety disorder 07/27/2018 Overview (08/20/2022): The patient follows with Dr Taylor Overview Note: Other anxiety disorders #7477337# EXT_ID: [id number] Assessment & Plan (2023 3:55 PM EDT): Reports stable and well managed, continue current regimen Hypertension 07/27/2018 Overview (06/13/2023): At goal today, continue amlodipine and metoprolol, consider josefa or arb given concurrent dm, defer to pcp Joint pain 11/08/2017 Diabetes mellitus, type 2 05/21/2016 Overview (08/20/2022): Overview Note: Type 2 diabetes mellitus #9335438# EXT_ID: [id number] Allergic rhinitis 05/21/2016 Assessment & Plan (2023 [...] Overview (08/20/2022): Overview Note: Carpal tunnel syndrome #4143099# EXT_ID: [id number] Atypical lobular hyperplasia (ALH) of breast Overview (08/20/2022): [place] [facility] [place] [facility] [place] Avina. She was on Tamoxigen for 5 years Umbilical hernia 07/16/2011 Impaired fasting glucose 01/28/2011 Breast microcalcification, mammographic 01/09/20 11 Overview (08/20/2022): Biopsied in [place] 07-07-2009, fibrocystic disease. Acquired hypothyroidism 01/05/2011 Overview (08/20/2022): Overview Note: Other hypothyroidism #7526216# EXT_ID: [id number] Assessment & Plan (06/28/2023 11:56 AM EDT): [...] 12/08/2018 12/06/2023 Overview (08/20/2022): Overview Note: Cough #3016354# EXT_ID: [id number] Major depressive disorder, recurrent 10/26/2018 06/29/2023 Overview (04/06/2022): Overview Note: Major depressive disorder, recurrent #4935244# EXT_ID: [id number] Lung mass 01/08/2011 2023 Overview (08/20/2022): F/u recommended somewhere between 01/09 and 07/10 Abdominal pain 03/06/2008 12/06/2023 Overview (08/20/2022): Overview Note: Dorsalgia #0587410# EXT_ID: [id number] Cervical spine disc herniation Overview Note: Other abdominal pain #1524422# EXT_ID: [id number] Asthma 03/06/2008 12/06/2023 Assessment & Plan (07/30/2023 4:20 PM EDT): Recent exacerbation, no audible wheeze today, continue inhalers Assessment & Plan (2023 4:09 PM EDT): Continue current inhalers, seasonal allergies are trigger, monitor for increased albuterol usage Encounters Date Type Department Care Team Description 07/03/2024 Telephone [facility] [address] [place] [address] Edmund Valentino MD Medication Question; Med Refill 06/29/2024 [place] [address] Edmund Valentino MD Mild intermittent asthma, unspecified whether complicated 06/11/2024 11:20 AM EDT Office Visit [facility] [address] [place] [address] Freda Mauricio MD Subacute pansinusitis (Primary Dx); Body aches; Allergic rhinitis, unspecified seasonality, unspecified trigger 06/11/2024 Travel 05/16/2024 2:00 PM EDT Office Visit [facility] [address] [place] [address] Shona Blandon NP Dysphagia, unspecified type (Primary Dx); Cough in adult patient; Persistent cough; Hoarseness of voice; Lymphadenopathy of left cervical region 05/11/2024 1:20 PM EDT Office Visit [facility] [address] [place] [address] Yaa Daly MD History of strep pharyngitis (Primary Dx); Mild intermittent asthma, unspecified whether complicated; Neck pain on left side 05/11/2024 Travel 04/19/2024 10:45 AM EST Office Visit [facility] [address] [place] [address] Alyssa Sandra MD Chronic bilateral low back pain with left-sided sciatica (Primary Dx) 04/19/2024 9:45 AM EST Office Visit [facility] [address] [place] [address] Name, MD Edmund Type 2 diabetes mellitus without complication, without long-term current use of insulin ([facility]) (Primary Dx); Acquired hypothyroidism; Strep [...] Visit [facility] [address] [facility] [place] [address] Name, [place] [address] Health Maintenance Due Date Last Done Comments [...] complication, without long-term current use of insulin ([facility]) ALBUMIN, RANDOM URINE W/CREATININE Routine 12/06/2023 10:00 AM EDT Type 2 diabetes mellitus without complication, without long-term current use of insulin ([facility]) POCT GLYCATED HEMOGLOBIN, TOTAL Routine 12/06/2023 9:03 AM EDT Type 2 diabetes mellitus without complication, without long-term current use of insulin ([facility]) BI MAMMOGRAM SCREENING TOMOSYNTHESIS BILATERAL Routine 07/05/2023 1:55 PM EDT LIPID PANEL, STANDARD Routine 06/07/2023 11:34 AM EDT Type 2 diabetes mellitus without complication, without long-term current use of insulin ([facility]) DIABETES EYE EXAM Routine 03/29/2023 COLONOSCOPY Routine 05/06/2021 PROPHYLAXIS - ADULT Routine 08/26/2020 1 2:00 AM EDT INTRAORAL - COMPLETE SERIES OF RADIOGRAPHIC IMAGES Routine 08/26/2020 12:00 AM EDT PERIODIC ORAL EVALUATION - ESTABLISHED PATIENT Routine 08/26/2020 12:00 AM EDT from Last 3 Months or Most Recently Relevant to Health Maintenance Results * Referral to ENT (06/26/2024) us Shona Blandon NP OUTPATIENT REFERRAL ORDERABLES Final Result * POCT Rapid Influenza B HUMPHREY ID NOW (06/11/2024 11:44 AM EDT) Only the most recent of3 resultswithin the time period is included. Influenza B Negative Negative, Indeterminate [facility] QC Media Lot # [id number] [facility] Lot# Expiration Date [id number] [facility] Swab 06/11/2024 11:4 4 AM EDT us Freda Mauricio MD POINT OF CARE TEST ENTER /EDIT ORDERABLES Final Result [facility] [address] [place] [address] [phone] * POCT Rapid Influenza A HUMPHREY ID NOW (06/11/2024 11:44 AM EDT) Only the most recent of3 resultswithin the time period is included. Influenza A Negative Negative, Indeterminate [facility] QC Media Lot # [id number] [facility] Lot# Expiration Date [id number] [facility] Swab 06/11/2024 11:4 4 AM EDT Freda Mauricio MD POINT OF CARE TEST ENTER /EDIT ORDERABLES Final Result [facility] [address] [place] [phone] * POCT Rapid Covid-19 BinaxNOW (06/11/2024 11:38 AM EDT) Only the most recent of2 resultswithin the time period is included. Rapid COVID Ag Negative QC Media Lot # [id number] Lot# Expiration Date [id number] Swab 06/11/2024 11:3 8 AM EDT Freda Mauricio MD POINT OF CARE TEST ENTER /EDIT ORDERABLES Final Result * XR Chest 2 Views (05/17/2024 11:56 AM EDT) Anatomical Region Laterality Modality Chest Radiographic Suzanne ging 05/17/2024 11:5 6 AM EDT Narrative 05/17/2024 12:27 PM EDT ?[facility] ?[address] ?[place] [address] ?XRay Report ? Signed ? Patient: Renetta Colon,Pippa I ?MR#: [id number] ?? [id number] ? : 1960 ?Acct:[id number] ? Age/Sex: 63 / F ?ADM Date: 03/20/25 ? Loc: HO.HHCX ? Attending Dr: Shona Blandon ? Ordering Physician: Shona Blandon ?? Date of Service: 05/17/24 ?? Procedure(s): XR chest 2V ?? Accession Number(s): [id number] ? cc: Shona Blandon ? EXAMINATION: ??XR [...] DD/ 1156 ? TD/TT: 05/17/24 1206 ? Dance Teacher: ? Procedure Note Joanie, Perfecto - 05/17/2024 [place] [address] XRay Report Signed Patient: Pippa Camilo IMR#: [id number] : 1960Acct:[id number] Age/Sex: 63 / FADM Date: 05/17/24 Loc: HO.HHCX Attending Dr: Shona Blandon Ordering Physician: Shona Blandon Date of Service: 05/17/24 Procedure(s): XR chest 2V Accession Number(s): [id number] cc: Shona Blandon EXAMINATION: XR CHEST 2 [...] 05/17/24 1224 DD/ 1156 TD/TT: 05/17/24 1206 Dance Teacher: [facility] BANQUET KITCHEN SUPERVISOR IMG XR PROCEDURES Final Result * POCT COVID-19 Ag Humphrey ID NOW (05/16/2024 2:10 PM EDT) [facility] Coronavirus Antigen PCR Negative Negative, Indeterminate, None Detected, Invalid, Specimen unsatisfactory for evaluation, Weakly Positive Swab 05/16/2024 2:10 PM EDT [facility] POINT OF CARE TEST ENTER/EDIT O RDERABLES Final Result * POCT rapid strep A manually resulted (05/16/2024 2:10 PM EDT) Only the most recent of2 resultswithin the time period is included. [facility] Rapid Strep A Screen Negative Negative, None Detected Swab 05/16/2024 2:10 PM EDT [facility] POINT OF CARE TEST ENTER/EDIT O RDERABLES Final Result * T-SPOT??.TB (05/11/2024 2:13 PM EDT) Only the most recent of2 resultswithin the time period is included. [facility] T Spot TB Negative Negative [facility] Comment:A negative test resu [...] as aquantitative test. TS PANEL A 0 [facility] TS PANEL B 0 [facility] Negative Control Passed [facility] Positive Control Passed [facility] Comment:For additional infor mation, please refer tohttp://education.xoompark/faq/VVZ029(This link is being provided for informational/educational purposes only.)THIS TEST WAS PERFORMED AT:[employer] [id number] [place] [address]INENQKWMICHELLE HALL MD,PHD 05/11/2024 2:13 PM EDT 05/11/2024 4:20 PM EDT us Edmund Valentino MD LAB BLOOD ORDERABLES Final Resul t [facility] [address] [place] [phone] * (ABNORMAL) Basic Metabolic Panel (05/11/2024 2:13 PM EDT) Sodium 142 135 - 145 mmol/L [facility] Potassium 3.7 3.3 - 5.1 mmol/L [facility] Chloride 104 96 - 108 mmol/L [facility] Carbon Dioxide 30(H) 22 - 29 mmol/L [facility] Anion Gap 12 12 - 20 [facility] Urea Nitrogen (BUN) 17(H) 9 - 16 mg/dL [facility] Creatinine, Serum 0.74 0.5 - 1.4 mg/dL [facility] Estimated Glomerular Filt Rate >60 [facility] Comment:Chronic Kidney Disea se: Estimated GFR < 60 mL/min/1.61z4Tmguas Kidney Disease: Estimated GFR < 15 mL/min/1.73m2 Glucose 110 60 - 115 mg/dL [facility] Calcium 10.4(H) 8.4 - 10.2 mg/dL [facility] Blood Venous blood specimen / Unknown 05/11/2024 2:13 PM EDT 05/11/2024 4:20 PM EDT Yaa Daly MD LAB BLOOD ORDERABLES Final Re sult Performing Organization Address City/[facility]/ZIP Co de Phone Number [facility] [address] [place] [phone] * TSH W/Reflex to FT4 (04/19/2024 10:25 AM EST) TSH reflex Free T4 2.19 0.32 - 4.0 uIU/mL [facility] Blood Venous blood specimen / Unknown 04/19/2024 10:25 AM EST 04/19/2024 11:36 AM EST Result [facility] Edmund Valentino MD LAB BLOOD ORDERABLES Final Resul t Performing Organization Address City/[facility]/ZIP Co de Phone Number [facility] [address] [place] [phone] * POCT Glucose (04/19/2024 9:55 AM EST) Glucose Blood, POC 129 60 - 200 mg/dL QC Media Lot # [id number] Lot# Expiration Date Blood Capillary blood specimen / Unknown 04/19/2024 9:55 AM EST Result [facility] Edmund Valentino MD POINT OF CARE TEST ENTER/EDIT OR DERABLES Final Result * Albumin, Random Urine W/Creatinine (12/06/2023 10:00 AM EDT) Creatinine, Urine 123.16 mg/dL [facility] Microalbumin Urine 11.0 mg/L [facility] Microalbum Creatinine Ratio Ur 8.9 <30 ug/mg cr [facility] Comment:Albumin/Creatinine R atio Reference Ranges: Normal: < 30 ug/mg creatinine Microalbuminuria: 30 - 300 ug/mg creatinineClinical Albuminuria: > 300 ug/mg creatinine Urine (Urine, Random) 12/06/2023 10:00 AM EDT 12/06/2023 11:23 AM EDT us Edmund Valentino MD LAB URINE ORDERABLES Final Resul t [facility] [address] [place] [phone] * (ABNORMAL) POCT HGB A1C (12/06/2023 9:03 AM EDT) Hemoglobin A1C 6.6(A) 4.0 - 6.0 % QC Media Lot # [id number] Lot# Expiration Date [id number] Blood 12/06/2023 9:03 AM EDT us Edmund Valentino MD POINT OF CARE TEST ENTER/EDIT OR DERABLES Final Result * BI Mammogram Screening Tomosynthesis Bilateral (07/05/2023 1:55 PM EDT) Anatomical Region Laterality Modality Breast Bilateral Mammography 07/05/2023 1:55 PM EDT Narrative 08/04/2023 1:26 PM EDT ? [facility] [place] ? [address] ?[place] [address] ? Mammography Report ? Signed ? Patient: Renetta Colon,Pippa I ?MR#: [id number] ?? [id number] ? : 1960 ?Acct:[id number] ? Age/Sex: 63 / F ?ADM Date: 05/07/24 ? Loc: HO.MAMMO ? Attending Dr: Tank Avina MD ? Ordering Physician: Tank Avina MD ?Results: 2Benig ?? n Findings ? Date of Service: 07/05/23 ?Follow Up: 1 Year From Orig ?? inal Mammogram ? Procedure(s): MM tomosynthesis screening BI ?? Accession Number(s): [id number] ? cc: Tank Avina MD; Name,Edmund HERNANDEZ [...] 1323 ? DD/ 1355 ? TD/TT: ? Dance Teacher: ? Procedure Note Donotchandaninterpreter, Image - 08/04/2023 [facility] [address] [place], [place] [address] Mammography Report Signed Patient: Pippa Camilo IMR#: [id number] : 1960Acct:[id number] Age/Sex: 63 / FADM Date: 07/05/23 Loc: HO.MAMMO Attending Dr: Tank Avina MD Ordering Physician: Tank Avina MDResults: 2Benig n Findings Date of Service: 07/05/23Follow Up: 1 Year From Orig inal Mammogram Procedure(s): MM tomosynthesis screening BI Accession Number(s): [id number] cc: Tank Avina MD; Name,Edmund HERNANDEZ EXAMINATION: [...] in OV> 08/04/23 1323 DD/ 1355 TD/TT: Dance Teacher: [facility] External Provider IMG BI PROCEDURES Final Result * (ABNORMAL) Lipid Panel, Standard (06/07/2023 11:34 AM EDT) Triglycerides 125 <150 mg/dL [facility] Comment:Desirable Triglyceri de: less than 150 mg/dLBorderline High Triglyceride 150-199 mg/dLHigh Triglyceride: 200-499 mg/dLVery High Triglyceride: greater than or equal to 5OO mg/dL Cholesterol 225(H) <200 mg/dL [facility] Comment:Desirable Cholestero l: less than 200 mg/dLBorderline High Cholesterol: 200-239 mg/dLHigh Cholesterol: greater than 239 mg/dL LDL Cholesterol Calculated 141(H) <100 mg/dL [facility] Comment:Desirable LDL: less than 100 mg/dLNear Optimal/Above Optimal LDL: 110- 129 mg/dLBorderline High LDL: 130-159 mg/dLHigh LDL: 160-189 mg/dLVery High LDL: greater than or equal to 190 mg/dL HDL Cholesterol 59 >40 mg/dL [facility] Comment:Desirable HDL: great er than 40 mg/dL Note: This HDL assay may give artificially low results in patients with liver disease. Blood Venous blood specimen / Unknown 06/07/2023 11:34 AM EDT 06/07/2023 1:12 PM EDT Beth Blanco NP LAB BLOOD ORDERABLES Final Resul t [facility] [address] [place] [phone] * Diabetes Eye Exam (03/29/2023) Eye Exam Normal Normal 03/29/2023 us Edmund Name HEALTH MAINTENANCE Final Result * Colonoscopy (05/06/2021) Colonoscopy Normal Normal Narrative Rita Jimenez - 05/06/2021 Recommended 5 year follow up Historical Provider HEALTH MAINTENANCE Final Result from Last 3 Months or Most Recently Relevant to Health Maintenance Insurance [place] [address] [place] [address] [facility] < 65 DENTAL - [facility] Care Teams Geotechnical Department Manager Relationship Specialty Start Date End Date Name, MD Edmund [address] [place] [phone] PCP - General Family Medicine 04/04/15
--- OUTSIDE RECORDS SUMMARY | 2024-07-10 14:41 | XMS_ITS | Encounter Summary ---
Author Organization [employer] Address [address] [facility] [address] [place] [address] Care Team Providers Care Beer Merchant Name Role Phone Name, Edmund HERNANDEZ Primary Care Provider [phone] Reason for Visit * Reason Comments Med Refill Encounter Details Date Type Department Care Team ([facility] st Contact Info) Description 01/09/2024 Refill [facility] [address] [place], [place] [phone] Name, MD Edmund [address] [place] [address] Social History Tobacco Use Types Packs/Day Years [...] EDT Office Visit [facility] [address] [place] [phone] Name, MD Edmund [address] [place] [address] documented as of this encounter Visit Diagnoses Not on filedocumented in this encounter Additional Health Concerns Assessment Noted Time PHQ-9 Depression Total Score: 0 07/29/19 24 9:26 AM EDT documented as of this encounter Care Teams Beer Merchant Relationship Specialty Start Date End Date Name, MD Edmund [address] [place] [phone] PCP - General Family Medicine 04/04/15 documented as of this encounter
--- OUTSIDE RECORDS SUMMARY | 2024-07-10 14:41 | XMS_ITS | Encounter Summary ---
Author Organization [employer] Address 75 [facility] 7 [place] [address] Care Team Providers Care Drywaller Name Role Phone Name, Edmund HERNANDEZ Primary Care Provider [phone] Encounter Details Date Type Department Care Team (Late Contact Info) Description 05/12/2022 Orders Only [facility] CHC MED & PEDS [address] [place], [place] [phone] Sarah Sherwood LPN Social History Tobacco Use [...] Visit [facility] MEDICINE [address] [place] [address] Name, MD Edmund [address] [place] [address] documented as of this encounter Procedures Procedure Name Priority Date/Time Associated Diagnosis Comments VAS US LOWER EXTREMITY VENOUS DUPLEX RIGHT Routine 06/11/2022 2:15 PM EDT XR CHEST 2 VIEWS Routine 05/19/2022 5:03 PM EDT documented in this encounter Results * Vascular US lower extremity venous duplex right (06/11/2022 2:15 PM EDT) 06/11/2022 2:15 PM EDT Narrative [facility] - 06/11/2022 3:03 PM EDT ? [facility] ?[address] ?[place] [address] ? Ultrasound Report ? Signed ? Patient: Pippa Camilo I ?MR#: [id number] ?? [id number] ? : 1960 ?Acct:[id number] ? Age/Sex: 61 / F ?ADM Date: 06/11/22 ? Loc: HO.US ? Attending Dr: Uli Prakash MD ? Ordering Physician: ULI PRAKASH MD ?? Date of Service: 06/11/22 ?? Procedure(s): US venous duplex LE RT ?? Accession Number(s): [id number] ? cc: ULI PRAKASH MD ? EXAMINATION: [...] 1500 ? DD/ 1415 ? TD/TT: ? Foreign Service Officer: SK ? Procedure Note Donotuseinterpreter, Image - 06/11/2022 [place] [address] Ultrasound Report Signed Patient: Pippa Camilo IMR#: [id number] : 1960Acct:[id number] Age/Sex: 61 / FADM Date: 06/11/22 Loc: HO.US Attending Dr: Uli Prakash MD Ordering Physician: ULI PRAKASH MD Date of Service: 06/11/22 Procedure(s): US venous duplex LE RT Accession Number(s): [id number] cc: ULI PRAKASH MD EXAMINATION: US VENOUS [...] in OV> 06/11/22 1500 DD/ 1415 TD/TT: Foreign Service Officer: JOSE us [facility] External Provider CV VASC ULAR PROCEDURES Edited Result - Final [facility] [address] [place] [address] * XR Chest 2 Views (05/19/2022 5:03 PM EDT) Anatomical Region Laterality Modality Chest Radiographic Suzanne ging 05/19/2022 5:03 PM EDT Narrative 05/25/2022 1:42 PM EDT ? [facility] ?[address] ?[place], [place] [address] ?XRay Report ? Signed ? Patient: Renetta Colon,Pippa I ?MR#: [id number] ?? [id number] ? : 1960 ?Acct:[id number] ? Age/Sex: 61 / F ?ADM Date: 05/19/22 ? Loc: HO.XRAY ? Attending Dr: Uli Prakash MD ? Ordering Physician: ULI PRAKASH MD ?? Date of Service: 05/19/22 ?? Procedure(s): XR chest 2V ?? Accession Number(s): [id number] ? cc: ULI PRAKASH MD ? EXAMINATION: [...] 1340 ? DD/ 1703 ? TD/TT: ? Foreign Service Officer: SERGIO ? Procedure Note Joanie, Image - 05/25/[address] [address] XRay Report Signed Patient: Pippa Camilo [facility]#: [id number] : 1960Acct:[id number] Age/Sex: 61 / FADM Date: 05/19/22 Loc: FELIPE Attending Dr: Uli Prakash MD Ordering Physician: ULI PRAKASH MD Date of Service: 05/19/22 Procedure(s): XR chest 2V Accession Number(s): [id number] cc: ULI PRAKASH MD EXAMINATION: XR CHEST [...] in OV> 05/25/22 1340 DD/ 1703 TD/TT: Foreign Service Officer: SERGIO [facility] External Provider IMG XR PROCEDURES Edited Result - Final documented in this encounter Visit Diagnoses Not on filedocumented in this encounter Care Teams Drywaller Relationship Specialty Start Date End Date Name, MD Edmund [address] [place] [address] PCP - General Family Medicine 04/04/15 documented as of this encounter
--- OUTSIDE RECORDS SUMMARY | 2024-07-10 14:41 | XMS_ITS | Encounter Summary ---
Author Organization [employer] Address 75 [facility] 7t [place] [address] Care Team Providers Care Stack Supervisor Name Role Phone Name, Edmund HERNANDEZ Primary Care Provider [phone] Reason for Visit * Reason Comments Med Refill Encounter Details Date Type Department Care Team ([facility] st Contact Info) Description 01/27/2024 Refill [facility] MEDICINE [address] [place], [place] [phone] Beth Blanco, SALVATORE [address] [place] [address] Social History Tobacco Use Types Packs/Day Years [...] Description 07/17/2024 10:00 AM EDT Office Visit [facility] MEDICINE [address] [place] [address] Name, MD Edmund [address] [place] [address] documented as of this encounter Visit Diagnoses Not on filedocumented in this encounter Additional Health Concerns Assessment Noted Time PHQ-9 Depression Total Score: 0 07/29/19 24 9:26 AM EDT documented as of this encounter Care Teams Stack Supervisor Relationship Specialty Start Date End Date Name, MD Edmund [address] [place] [address] PCP - General Family Medicine 04/04/15 documented as of this encounter
--- OUTSIDE RECORDS SUMMARY | 2024-07-10 14:41 | XMS_ITS | Encounter Summary ---
Author Organization [employer] [facility] Address [address] [place] [address] 7 [place] [address] Care Team Providers Care Ruffling Machine Operator Name Role Phone Name, Edmund HERNANDEZ Primary Care Provider [phone] Encounter Details Date Type Department Care Team (Latest Contact Info) Description 08/26/2020 Abstract [facility] CONVERSIONS Dental, Provider, DDS Social History [...] Office Visit [facility] MEDICINE [address] [place] [address] Edmund Valentino MD [address] [place] [address] documented as of this encounter Visit Diagnoses Not on filedocumented in this encounter Care Teams Ruffling Machine Operator Relationship Specialty Start Date End Date Edmund Valentino MD [address] [place] [address] PCP - General Family Medicine 04/04/15 documented as of this encounter
--- OUTSIDE RECORDS SUMMARY | 2024-07-10 14:41 | XMS_ITS | Encounter Summary ---
Author Organization [employer] Address 75 [facility] 7t [place] [address] Care Team Providers Care Circular Tank Cooper Name Role Phone Name, Edmund HERNANDEZ Primary Care Provider [phone] Reason for Visit * Reason Comments Med Refill Encounter Details Date Type Department Care Team ([facility] st Contact Info) Description 01/20/2024 Refill [facility] MEDICINE [address] [place], [place] [phone] Name, MD Edmund [address] [place] [address] Social History Tobacco Use Types Packs/Day Years [...] your housing situation today? I have aron tnoey 05/09/[address] you li [...] Office Visit [facility] MEDICINE [address] [place] [address] Name, MD Edmund [address] [place] [address] documented as of this encounter Visit Diagnoses Not on filedocumented in this encounter Additional Health Concerns Assessment Noted Time PHQ-9 Depression Total Score: 0 07/29/19 24 9:26 AM EDT documented as of this encounter Care Teams Circular Tank Cooper Relationship Specialty Start Date End Date Name, MD Edmund [address] [place] [address] PCP - General Family Medicine 04/04/15 documented as of this encounter
--- OUTSIDE RECORDS SUMMARY | 2024-07-10 14:41 | XMS_ITS | Encounter Summary ---
Author Organization [employer] Address 75 [facility] 7t [place] [address] Care Team Providers Care Corporate Compliance Officer Name Role Phone Name, Edmund HERNANDEZ Primary Care Provider Reason for Visit * Reason Comments Med Refill Encounter Details Date Type Department Care Team ([facility] st Contact Info) Description 02/10/2024 Refill [facility] CHC MED & PEDS [address] [place], [place] [phone] Name, MD Edmund [address] [place] [address] Social History Tobacco Use Types Packs/Day Years [...] 10:00 AM EDT Office Visit [facility] MEDICINE [address] [place] [address] Name, MD Edmund [address] [place] [address] documented as of this encounter Visit Diagnoses Not on filedocumented in this encounter Additional Health Concerns Assessment Noted Time PHQ-9 Depression Total Score: 0 07/29/19 24 9:26 AM EDT documented as of this encounter Care Teams Corporate Compliance Officer Relationship Specialty Start Date End Date Name, MD Edmund [address] [place] [address] PCP - General Family Medicine 04/04/15 documented as of this encounter
--- OUTSIDE RECORDS SUMMARY | 2024-07-10 14:42 | XMS_ITS | Encounter Summary ---
Author Organization [employer] [facility] Address [address] [place] [address], [place] [address] Care Team Providers Care Polisher Brass Name Role Phone Name, Edmund HERNANDEZ Primary Care Provider [phone] Encounter Details Date Type Department Care Team (Late Contact Info) Description 07/30/2022 Abstract [facility] MEDICINE [address] [place] [address] [phone] NameEdmund MD [address] [place] [address] Social History Tobacco Use Types Packs/Day Years [...] [facility] MEDICINE [address] [place] [phone] NameEdmund MD [address] [place] [phone] documented as of this encounter Visit Diagnoses Not on filedocumented in this encounter Care Teams Polisher Brass Relationship Specialty Start Date End Date Name, MD Emdund [address] [place] [address] PCP - General Family Medicine 04/04/15 documented as of this encounter
--- OUTSIDE RECORDS SUMMARY | 2024-07-10 14:42 | XMS_ITS | Encounter Summary ---
Author Organization [employer] Address 75 [facility] 7t [place] [address] Care Team Providers Care Finished Hardware Erector Name Role Phone Name, Edmund HERNANDEZ Primary Care Provider Reason for Visit * Reason Comments Med Refill Encounter Details Date Type Department Care Team ([facility] st Contact Info) Description 09/23/[address] [facility] MEDICINE [address] [place], [place] [phone] Name, MD Edmund [address] [place] [address] Mild intermittent asthma, unspecified whether complicated Social [...] 10:00 AM EDT Office Visit [facility] MEDICINE [address] [place] [address] Name, MD Edmund [address] [place] [address] documented as of this encounter Visit Diagnoses Diagnosis Mild intermittent asthma, unspecified whether complicated documented in this encounter Additional Health Concerns Assessment Noted Time PHQ-9 Depression Total Score: 0 07/29/19 24 9:26 AM EDT documented as of this encounter Care Teams Finished Hardware Erector Relationship Specialty Start Date End Date NameEdmund MD [address] [place] [address] PCP - General Family Medicine 04/04/15 documented as of this encounter
--- OUTSIDE RECORDS SUMMARY | 2024-07-10 14:42 | XMS_ITS | Encounter Summary ---
Author Organization [employer] [facility] Address 75 [facility] 7 [place] [address] Care Team Providers Care Rubber Extrusion Machine Operator Name Role Phone Name, Edmund HERNANDEZ Primary Care Provider [phone] Encounter Details Date Type Department Care Team (Late st Contact Info) Description 09/07/2022 Abstract [facility] MEDICINE [address] [place] [address] [phone] Name, MD Edmund [address] [place] [address] Social History Tobacco Use Types Packs/Day Years [...] 10:00 AM EDT Office Visit [facility] MEDICINE [address] [place] [address] [phone] Name, MD Edmund [address] [place] [address] documented as of this encounter Procedures Procedure Name Priority Date/Time Associated Diagnosis Comments COLONOSCOPY Routine 05/06/2021 documented in this encounter Results * Hm Colonoscopy (05/06/2021) Colonoscopy Normal Normal Narrative Rita Jimenez - 05/06/2021 Recommended 5 year follow up us Historical Provider HEALTH MAINTENANCE Final Result documented in this encounter Visit Diagnoses Not on filedocumented in this encounter Care Teams Rubber Extrusion Machine Operator Relationship Specialty Start Date End Date Name, [place] [address] PCP - General Family Medicine 04/04/15 documented as of this encounter
--- OUTSIDE RECORDS SUMMARY | 2024-07-10 14:42 | XMS_ITS | Encounter Summary ---
Author Organization [employer] Address 75 [facility] 7t [place] [address] Care Team Providers Care Process Operator Name Role Phone Name, Edmund HERNANDEZ Primary Care Provider [phone] Reason for Visit * Reason Comments Med Refill Encounter Details Date Type Department Care Team ([facility] st Contact Info) Description 01/06/2024 Refill [facility] MEDICINE [address] [place], [place] [phone] Beth Blanco, SALVATORE [address] [place] [address] Social History Tobacco Use Types Packs/Day Years [...] 10:00 AM EDT Office Visit [facility] MEDICINE [address] [place] [address] Name, MD Edmund [address] [place] [address] documented as of this encounter Visit Diagnoses Not on filedocumented in this encounter Additional Health Concerns Assessment Noted Time PHQ-9 Depression Total Score: 0 07/29/19 24 9:26 AM EDT documented as of this encounter Care Teams Process Operator Relationship Specialty Start Date End Date Name, MD Edmund [address] [place] [address] PCP - General Family Medicine 04/04/15 documented as of this encounter
--- OUTSIDE RECORDS SUMMARY | 2024-07-10 14:42 | XMS_ITS | Data Portability ---
Author Organization [employer] [facility] [place] [facility] [employer] Address [address] [place] [address] Care Team Providers Care Test Technician Name Role Phone HIM CCA OTHER NAMECOREY Primary Care Provider [phone] Assessment Encounter Date Assessment Date Assessment LastModified by Organization Details LastModified Time 07/01/2024 07/01/2024 I provided real -time medical direction via phone for this encounter, and was available for additional phone based assistance as needed. I have reviewed and agree with the Assessment and Plan as documented by the [employer] Operations Craftsman. We discussed the diagnostic uncertainty of home [...] ED eval. Family verbalized understanding of instructions. [email or web address] Not available 07/01/2024 11:27:29 Plan of Treatment Reminders Order Date Submit Date Provider Last Modified By Organization Details Last Modified Time Details Appointments None recorded. Lab None recorded. Referral None recorded. Procedures None recorded. Surgeries None recorded. Imaging None recorded. Medication Orders lidocaine 5 % topical patch 2024 025 [id number], [address] [place], [phone], 10:32:00 Patient TargetsNo targets recorded. Patient InstructionsNo instructions recorded. Reason for Referral None Reported. Medical Equipment None Reported. Allergies Allergen ID Allergen Name Allergen Category Reaction Reaction Severity Criticality Documentation Date Start Date Code Code System Note Provider Name and Address Organization Details Recorded Time 30995 purified protein derivativ e of tuberculi n medicatio n Not available Not available Not available 06/30/2024 0148 RxNorm Not Available [employer] - production 5 [...] Updated DateTime 5 79 /min 18 /min 29862.5 76 g 152.4 cm 95 % 95 [...] SNOMED-CT Code Diagnosis ICD10 Code Diagnosis Note 62511 SOMMER LIU NP, S Main - instED [address] [place] [address] [phone] 07/01/2024 10:24:45 07/02/2024 00:12:40 Chronic low back pain 221260229 M54.42 M54.41 G89.29 Patient has hx of [...] Hernandez Member ID Guarantor Name 06/30/2024 1 [facility] - DOS ON OR AFTER 2022 - DUAL ELIGIBLE - DETENTION OPTIONS AND ONE CARE (MEDICARE REPLACEMENT/ADV ANTAGE - HMO) Pippa Jackson [id number] Pippa Jackson Notes Date Note Type Note [...] .................... .................... .................... .................... .................... .................... . Space [employer] Operations Craftsman Note From America Rose: [facility] makes pt contact. She opens the [...] Pt consents to evaluation and treatment today. [facility] obtains pt consent. Vitals signs are [...] swelling is noted bilaterally and is equal. [facility] contacts [facility] and discusses the above. [facility] recommends heat and ice, gentle stretching, and will prescribe a lidocaine gel or patch for pt. [facility] will also message pt's care team to request a refill of her tramadol. [facility] instructs pt to decrease her Tylenol [...] the development of saddle paralysis. Pt thanks [facility] for visit. [facility] is clear. Report completed by JUAN Rose [id number]. .................... .................... .................... .................... .................... .................... .................... . [facility] Consulted: Sommer Liu .................... .................... .................... .................... .................... .................... .................... . Disposition: Fulfilled SOMMER LIU NP, S [address] [place] [address],[address], [place], [address], [employer] Games[employer]ELIPE MORTENSEN 07/01/2024 11:44:34 OBGyn Episode No OBEpisode recorded.
--- OUTSIDE RECORDS SUMMARY | 2024-07-10 14:42 | XMS_ITS | Encounter Summary ---
Author Organization [employer] Address 75 [facility] [place] [address] Care Team Providers Care Horses Or Mules Teamster Name Role Phone Name, Edmund HERNANDEZ Primary Care Provider [phone] Reason for Visit * Reason Onset Date Comments Pre OP 06/30/2022 Encounter Details Date Type Department Care Team ([facility] st Contact Info) Description 06/30/2022 Telephone [facility] MEDICINE [address] [place] [phone] Name, MD Edmund [address] [place] [address] Pre OP Social History Tobacco Use Types [...] repair on 09/22/[address] Cobb at [facility]. Pt will be under general and popliteal [...] 2:33 PM EDT Tc from Bill from [facility] orthopedics returning call for PRE-OP appt , please see notes also stated surgeon will place order for EKG. Please contact at [phone] * Telephone Encounter - Julee Chung - 06/30/2022 1:46 PM EDT TC from Bill from [facility] requesting a PRE-OP Location: [address] Procedure: tendon repair Date of procedure: 09/22/22 @ 11:30am Labs: yes Ekg: yes Anesthesia Type : general and popliteal block Surgeon Name: donna tomlinson documented in this encounter Plan of Treatment Upcoming Encounters Date Type Department Care Team (Late st Contact Info) Description 07/17/2024 10:00 AM EDT Office Visit [facility] MEDICINE [address] [place] [address] Name, MD Edmund [address] [place] [address] documented as of this encounter Visit Diagnoses Not on filedocumented in this encounter Care Teams Horses Or Mules Teamster Relationship Specialty Start Date End Date Name, MD Edmund [address] [place] [address] PCP - General Family Medicine 04/04/15 documented as of this encounter
--- OUTSIDE RECORDS SUMMARY | 2024-07-10 14:42 | XMS_ITS | Encounter Summary ---
Author Organization [employer] Address 75 [facility] 7t [place] [address] Care Team Providers Care Arson And Bomb Investigator Name Role Phone Name, Edmund HERNANDEZ Primary Care Provider [phone] Reason for Visit * Reason Comments Med Refill Encounter Details Date Type Department Care Team ([facility] st Contact Info) Description 05/06/2023 Refill [facility] MEDICINE [address] [place], [place] [phone] Name, MD Edmund [address] [place] [address] Social History Tobacco Use Types Packs/Day Years [...] t he electric, gas, oil or water [employer] threatened to shut off services in your [...] Description 07/17/2024 10:00 AM EDT Office Visit [facility] MEDICINE [address] [place] [address] NameEdmund MD [address] [place] [address] documented as of this encounter Visit Diagnoses Not on filedocumented in this encounter Care Teams Arson And Bomb Investigator Relationship Specialty Start Date End Date NameEdmund MD [address] [place] [address] PCP - General Family Medicine 04/04/15 documented as of this encounter
--- OUTSIDE RECORDS SUMMARY | 2024-07-10 14:42 | XMS_ITS | Encounter Summary ---
Author Organization [employer] [facility] Address [address] [place] [address] [address] [address] Care Team Providers Care Manager Delivery Name Role Phone Name, Edmund HERNANDEZ Primary Care Provider [phone] Encounter Details Date Type Department Care Team (Late Contact Info) Description 08/19/2022 Abstract [facility] MEDICINE [address] [place] [address] [phone] NameEdmund MD [address] [place] [address] Social History Tobacco Use Types Packs/Day Years [...] Description 07/17/2024 10:00 AM EDT Office Visit [facility] MEDICINE [address] [place] [address] [phone] NameEdmund MD [address] [place] [address] [phone] documented as of this encounter Visit Diagnoses Not on filedocumented in this encounter Care Teams Manager Delivery Relationship Specialty Start Date End Date Name, MD Edmund [address] [place] [address] PCP - General Family Medicine 04/04/15 documented as of this encounter
--- OUTSIDE RECORDS SUMMARY | 2024-07-10 14:42 | XMS_ITS | Encounter Summary ---
Author Organization [employer] Address 75 [facility] 7t [place] [address] Care Team Providers Care Nurse Practitioner Name Role Phone Name, Edmund HERNANDEZ Primary Care Provider [phone] Reason for Visit * Reason Comments Med Refill Encounter Details Date Type Department Care Team ([facility] st Contact Info) Description 12/30/2022 Refill [facility] CHC MED & PEDS [address] [place], [place] [phone] Name, MD Edmund [address] [place] [address] Social History Tobacco Use Types Packs/Day Years [...] t he electric, gas, oil or water [employer] threatened to shut off services in your [...] 10:00 AM EDT Office Visit [facility] MEDICINE [address] [place] [address] NameEdmund MD [address] [place] [address] documented as of this encounter Visit Diagnoses Not on filedocumented in this encounter Care Teams Nurse Practitioner Relationship Specialty Start Date End Date Edmund Valentino MD [address] [place] [address] PCP - General Family Medicine 04/04/15 documented as of this encounter
--- OUTSIDE RECORDS SUMMARY | 2024-07-10 14:42 | XMS_ITS | Encounter Summary ---
Author Organization [employer] Address 75 [facility] 7 [place] [address] Care Team Providers Care Customizer Name Role Phone Name, Edmund HERNANDEZ Primary Care Provider Reason for Visit * Reason Onset Date Comments Medication Question 07/03/2024 Med Refill 07/03/2024 Encounter Details Date Type Department Care Team ([facility] st Contact Info) Description 07/03/2024 Telephone [facility] MEDICINE [address] [place], [place] [phone] Name, MD Edmund [address] [place], [place] [phone] Medication Question; Med Refill Social History Tobacco [...] TC x 2 placed to pt via [employer] translator and interpreter (Kvng ID#[id number]) regarding below message about tramadol. Nolalo, LVM [...] for Tramadol 50mg. To be sent to: [id number] - [place], [place] - [address] [facility] IF any questions contact pt at [phone] ([place] citizen) documented in this encounter Plan of Treatment Upcoming Encounters Date Type Department Care Team (Late st Contact Info) Description 07/17/2024 10:00 AM EDT Office Visit [facility] MEDICINE [address] [place] [address] Name, MD Edmund [address] [place] [address] documented as of this encounter Visit Diagnoses Not on filedocumented in this encounter Additional Health Concerns Assessment Noted Time PHQ-9 Depression Total Score: 0 07/29/19 24 9:26 AM EDT documented as of this encounter Care Teams Customizer Relationship Specialty Start Date End Date Name, MD Edmund [address] [place] [address] PCP - General Family Medicine 04/04/15 documented as of this encounter
--- OUTSIDE RECORDS SUMMARY | 2024-07-10 14:42 | XMS_ITS | Encounter Summary ---
Author Organization [employer] Address 75 [facility] 7t [place] [address] Care Team Providers Care Portable Grinding Machine Operator Name Role Phone Name, Edmund HERNANDEZ Primary Care Provider [phone] Reason for Visit * Reason Comments Med Refill Encounter Details Date Type Department Care Team ([facility] st Contact Info) Description 01/19/2023 Refill [facility] CHC MED & PEDS [address] [place], [place] [phone] Name, MD Edmund [address] [place] [address] Social History Tobacco Use Types Packs/Day Years [...] t he electric, gas, oil or water [employer] threatened to shut off services in your [...] Description 07/17/2024 10:00 AM EDT Office Visit [facility] MEDICINE [address] [place] [address] NameEdmund MD [address] [place] [address] documented as of this encounter Visit Diagnoses Not on filedocumented in this encounter Care Teams Portable Grinding Machine Operator Relationship Specialty Start Date End Date Edmund Valentino MD [address] [place] [address] PCP - General Family Medicine 04/04/15 documented as of this encounter
--- OUTSIDE RECORDS SUMMARY | 2024-07-10 14:42 | XMS_ITS | Encounter Summary ---
Author Organization [employer] [facility] Address 75 [facility] 7 [place] [address] Care Team Providers Care Bracer Name Role Phone Name, Edmund HERNANDEZ Primary Care Provider [phone] Encounter Details Date Type Department Care Team (Late st Contact Info) Description 09/02/[address] [facility] MEDICINE [address] [place] [address] [phone] Name, MD Edmund [address] [place] [address] Social History Tobacco Use Types Packs/Day Years [...] EDT Office Visit [facility] MEDICINE [address] [place] [address] [phone] Name, MD Edmund [address] [place] [address] documented as of this encounter Visit Diagnoses Not on filedocumented in this encounter Care Teams Bracer Relationship Specialty Start Date End Date Name, MD Edmund 230 [place] [address] PCP - General Family Medicine 04/04/15 documented as of this encounter
--- OUTSIDE RECORDS SUMMARY | 2024-07-10 14:42 | XMS_ITS | Encounter Summary ---
Author Organization [employer] Address 75 [facility] 7t [place] [address] Care Team Providers Care Buffing Turner And Counter Name Role Phone Name, Edmund HERNANDEZ Primary Care Provider [phone] Reason for Visit * Reason Comments Med Refill Encounter Details Date Type Department Care Team ([facility] st Contact Info) Description 10/04/2023 Refill [facility] MEDICINE [address] [place], [place] [phone] Name, MD Edmund [address] [place] [address] Mild intermittent asthma, unspecified whether complicated Social [...] 10:00 AM EDT Office Visit [facility] MEDICINE [address] [place] [address] Name, MD Edmund [address] [place] [address] documented as of this encounter Visit Diagnoses Diagnosis Mild intermittent asthma, unspecified whether complicated documented in this encounter Additional Health Concerns Assessment Noted Time PHQ-9 Depression Total Score: 0 07/29/19 24 9:26 AM EDT documented as of this encounter Care Teams Buffing Turner And Counter Relationship Specialty Start Date End Date NameEdmund MD [address] [place] [address] PCP - General Family Medicine 04/04/15 documented as of this encounter
--- OUTSIDE RECORDS SUMMARY | 2024-07-10 14:42 | XMS_ITS | Encounter Summary ---
Author Organization [employer] Address 75 [facility] 7t [place] [address] Care Team Providers Care Weatherization And Housing Inspector Name Role Phone Name, Edmund HERNANDEZ Primary Care Provider [phone] Reason for Visit * Reason Comments Med Refill Encounter Details Date Type Department Care Team ([facility] st Contact Info) Description 06/24/2023 Refill [facility] MEDICINE 230 [place], [place] [phone] Beth Blanco, SALVATORE [address] [place] [address] Social History Tobacco Use Types Packs/Day Years [...] t he electric, gas, oil or water [employer] threatened to shut off services in your [...] 10:00 AM EDT Office Visit [facility] MEDICINE [address] [place] [address] NameEdmund MD [address] [place] [address] documented as of this encounter Visit Diagnoses Not on filedocumented in this encounter Care Teams Weatherization And Housing Inspector Relationship Specialty Start Date End Date NameEdmund MD [address] [place] [address] PCP - General Family Medicine 04/04/15 documented as of this encounter
--- OUTSIDE RECORDS SUMMARY | 2024-07-10 14:42 | XMS_ITS | Encounter Summary ---
Author Organization [employer] Address 75 [facility] 7t [place] [address] Care Team Providers Care Embroidery Cutter Name Role Phone Name, Edmund HERNANDEZ Primary Care Provider [phone] Reason for Visit * Reason Onset Date Comments Appointment Request 05/16/2023 Encounter Details Date Type Department Care Team ([facility] st Contact Info) Description 05/16/2023 Telephone [facility] MEDICINE 230 [place], [place] [phone] Name, MD Edmund 230 [place] [address] Appointment Request Social History Tobacco Use Types [...] to cancel and reschedule appt for 05/15 handbook writer did cancel per patients request documented in this encounter Plan of Treatment Upcoming Encounters Date Type Department Care Team (Late st Contact Info) Description 07/17/2024 10:00 AM EDT Office Visit [facility] MEDICINE [address] [place] [address] Name, MD Edmund [address] [place] [address] documented as of this encounter Visit Diagnoses Not on filedocumented in this encounter Care Teams Embroidery Cutter Relationship Specialty Start Date End Date Name, MD Edmund [address] [place] [address] PCP - General Family Medicine 04/04/15 documented as of this encounter
== END 2024-07-10 13:36 | disposition home or self-care (01) ==
LOC: HO.MAMMO 13:35
PROVIDERS: PCP Internal Medicine Geriatric Medicine; Visit Provider Internal Medicine Geriatric Medicine
DX: Z12.31 Encounter for screening mammogram for malignant neoplasm of breast (principal)
CPT/HCPCS: 77063; 77067; 93005; 99202

== ENCOUNTER 2024-07-10 13:52 | Outpatient (AMB) | payer OTHER, SELFPAY ==
--- NOTE | 2024-07-10 13:58 | A.OFFVIS_ITS ---
Vital Signs 07/10/24 13:59 Height 5 ft Weight 142 lb BMI 27.7 BP 118/68 Blood Pressure Location Lt brachial Position Sitting Pulse 64 Pulse Source Monitor Intake Visit Reasons: Hematology Oncology ref Play Therapist Required: Yes Play Therapist Name: [id number] Allergies tuberculin, purified protein deriva [TB TEST] Allergy (Severe, Verified 07/09/24 10:51) ANGIOEDEMA Medication List - Last Reconciled 07/10/24 by Adrien Lundberg MD albuterol sulfate 90 mcg/actuation 2 puffs PO Q4-6H PRN amlodipine 5 mg PO DAILY dulaglutide (Trulicity) 0.75 mg subcut QWEEK duloxetine 30 mg PO DAILY fluticasone propionate 50 mcg/actuation 2 sprays intranasal DAILY fluticasone propionate 220 mcg/actuation (Flovent HFA) 2 puffs inhalation BID hydroxyzine pamoate 1 cap PO BID ketoconazole 2% 1 appl topical DAILY levothyroxine 88 mcg PO DAILY loratadine 1 tab PO DAILY metformin 1 tab PO QAM metoprolol tartrate 25 mg PO BID montelukast (Singulair) 1 tab PO BEDTIME omeprazole 1 cap PO DAILY trazodone 50 mg PO BEDTIME zaleplon 10 mg PO BEDTIME PRN HPI Comments Details: Pippa is here for cardiac consultation. Previously seen at [facility] for many years but would like to switch to [place]. She complaints of chest pains that can happen any time. With and without exertion. It seems that she has had extensive workup at [facility] including echocardiogram, stress test as well as cardiac catheterization which did not really show any revealing findings. She also feels some palpitations which are random and can happen any time. With and without activity. No documented arrhythmias. [facility] Medical History (Updated 07/10/24 @ 14:21 by Adrien Lundberg MD) Pulmonary nodules STEVEN (obstructive sleep apnea) Asthma with COPD Allergic rhinitis Osteoarthritis, hip, bilateral Frequency of urination Hernia Depression Anxiety Heart disease Diabetes Asthma Fibromyalgia Atypical lobular hyperplasia (ALH) of breast Surgical History Hx of cardiac cath H/O rectal polypectomy History of carpal tunnel surgery Hx of toe surgery Hx of right knee surgery Hx of tonsillectomy History of appendectomy Hx of cholecystectomy H/O: hysterectomy Hx of section Family History Brother Heart disease Asthma Mother Family history of esophageal cancer Hypertension Asthma Lung cancer Father History of prostate cancer Asthma Paternal Aunt No problems noted. Paternal Grandfather Liver cancer Colon cancer Family/Other Stomach cancer Maternal Aunt Breast cancer Social History Household Members: None Housing: Apartment Are you a primary child care assistant to a significant other at home: No Do you presently have visiting nurse or other home services: No Alcohol intake: former Patient Tobacco Use Status: Never used Tobacco service: No Current occupational status: disabled Female Reproductive History Menstrual Age of Menarche: 15 Review of Systems Const Reports fatigue and Denies weakness ENT Denies dizziness Card Reports chest pain, Denies chest pain with activity, Denies syncope, Denies rapid heart rate, Denies pedal edema, Denies edema, Denies leg edema, Denies lightheadedness, Reports palpitations, Reports dyspnea, Denies dyspnea on exertion and Denies orthopnea Resp Denies cough, Reports dyspnea and Denies dyspnea on exertion GI Denies hematochezia and Denies change in stool character Musc Denies abnormal gait, Denies muscle cramps, Denies muscle weakness, Denies numbness, Denies radiating pain into limb and Denies tingling Neuro Denies abnormal gait, Denies dizziness, Denies syncope, Denies numbness, Denies tingling and Denies weakness Endo Reports fatigue and Reports palpitations Physical Exam Vital Signs: Last Vital Signs Pulse 64 07/10/24 13:59 BP 118/68 07/10/24 13:59 BMI result Body Mass Index 27.7 Const General: comfortable and no acute distress Orientation/consciousness: patient oriented x3 HEENT Other: Unremarkable Head: Yes normal to inspection Neck Neck: Yes normal visual inspection Chest Chest palpation & inspection: normal inspection of the chest Resp Auscultation: clear to auscultation bilaterally Cardio Palpation: normal PMI Heart sounds: S1 normal heart sound present, S2 normal heart sound present, no gallops, no murmurs and no rubs GI Palpation (GI): Soft to palpation Back/Spine/Pelvis Other: unremarkable Skin General skin exam: no rashes or lesions noted Neuro General: patient oriented x3 Extrem General: Yes normal to inspection Psych Mental Status: mental status grossly normal Office Procedures EKG Details: EKG with underlying sinus rhythm at 64/Min; low-voltage complexes most likely from body habitus; [place]. [address]-[id number], Complete Assessment & Plan Assessment & Plan (1) Precordial chest pain: Code(s): R07.2 - Precordial pain Category: Medical Plan: [facility] records were reviewed. Myocardial perfusion imaging study from 2020 with poor functional capacity but normal perfusion imaging at that workload. Echocardiogram 2024-LVEF 55-65%. No wall motion abnormalities. Normal peak global longitudinal strain at -20.4 %. No significant valvular findings. Cardiac catheterization 2021 with angiographically normal coronary arteries. It was felt that there was no significant/obstructive CAD to explain her symptoms. Based on the above, no clear cardiac etiology to explain her symptoms. Most likely noncardiac. (2) Heart palpitations: Code(s): R00.2 - Palpitations Category: Medical Plan: Not clear if it is all just anxiety or something pathological like atrial arrhythmias. We can do a 7 day Holter. If any significant abnormalities, then reassess. Otherwise reassurance. Orders: Orders ECG 7 day holter monitor Today R00.2 - Palpitations Coding Level of Care Code New Pt Level 3 (39526) Diagnoses Precordial chest pain R07.2 Heart palpitations R00.2 CPT Codes EKG - CPT: 00375-[id number], Complete ([id number])
[2024-07-10 13:59] VITALS: BP 118/68; PULSE 64; BMI 27.7
--- OUTSIDE RECORDS SUMMARY | 2024-07-10 15:04 | XMS_ITS | Encounter Summary ---
Author Organization [employer] Address 75 [facility] 7t [place] [address] Care Team Providers Care Duplicator Punch Operator Name Role Phone Name, Edmund HERNANDEZ Primary Care Provider [phone] Reason for Visit * Reason Comments Med Refill Encounter Details Date Type Department Care Team ([facility] st Contact Info) Description 01/06/2024 Refill [facility] MEDICINE 230 [place], [place] [phone] Beth Blanco, SALVATORE 230 [place] [address] Social History Tobacco Use Types Packs/Day Years [...] 07/17/2024 10:00 AM EDT Office Visit [facility] MEDICINE [address] [place] [address] Name, MD Edmund 230 [place] [address] documented as of this encounter Visit Diagnoses Not on filedocumented in this encounter Additional Health Concerns Assessment Noted Time PHQ-9 Depression Total Score: 0 07/29/19 24 9:26 AM EDT documented as of this encounter Care Teams Duplicator Punch Operator Relationship Specialty Start Date End Date Name, MD Edmund [address] [place] [address] PCP - General Family Medicine 04/04/15 documented as of this encounter
--- OUTSIDE RECORDS SUMMARY | 2024-07-10 15:04 | XMS_ITS | Encounter Summary ---
Author Organization [employer] [facility] Address [address] [place] [address] 7 [place] [address] Care Team Providers Care Non Clinical Advisor Name Role Phone Name, Edmund HERNANDEZ Primary Care Provider [phone] Encounter Details Date Type Department Care Team (Latest Contact Info) Description 08/26/2020 Abstract [facility] CONVERSIONS Dental, Provider, DDS Social History Tobacco [...] Visit [facility] MEDICINE [address] [place] [address] Edmund Valentino MD [address] [place] [address] documented as of this encounter Visit Diagnoses Not on filedocumented in this encounter Care Teams Non Clinical Advisor Relationship Specialty Start Date End Date Edmund Valentino MD [address] [place] [address] PCP - General Family Medicine 04/04/15 documented as of this encounter
--- OUTSIDE RECORDS SUMMARY | 2024-07-10 15:04 | XMS_ITS | Encounter Summary ---
Author Organization [employer] Address 75 [facility] 7 [place] [address] Care Team Providers Care Color Maker Formulator Name Role Phone Name, Edmund HERNANDEZ Primary Care Provider [phone] Encounter Details Date Type Department Care Team (Late Contact Info) Description 05/12/2022 Orders Only [facility] CHC MED & PEDS [address] [place], [place] [phone] Sarah Sherwood LPN Social History Tobacco Use [...] 10:00 AM EDT Office Visit [facility] MEDICINE 230 [place] [address] Name, MD Edmund [address] [place] [address] documented as of this encounter Procedures Procedure Name Priority Date/Time Associated Diagnosis Comments VAS US LOWER EXTREMITY VENOUS DUPLEX RIGHT Routine 06/11/2022 2:15 PM EDT XR CHEST 2 VIEWS Routine 05/19/2022 5:03 PM EDT documented in this encounter Results * Vascular US lower extremity venous duplex right (06/11/2022 2:15 PM EDT) 06/11/2022 2:15 PM EDT Narrative [facility] - 06/11/2022 3:03 PM EDT ? [facility] ?[address] ?[place] [address] ? Ultrasound Report ? Signed ? Patient: Pippa Camilo I ?MR#: [id number] ?? [id number] ? : 1960 ?Acct:[id number] ? Age/Sex: 61 / F ?ADM Date: 06/11/22 ? Loc: HO.US ? Attending Dr: Uli rPakash MD ? Ordering Physician: ULI PRAKASH MD ?? Date of Service: 06/11/22 ?? Procedure(s): US venous duplex LE RT ?? Accession Number(s): [id number] ? cc: ULI PRAKASH MD ? EXAMINATION: [...] 1500 ? DD/ 1415 ? TD/TT: ? Senior Automation Engineer: SK ? Procedure Note Donotuseinterpreter, Image - 06/11/2022 [place] [address] Ultrasound Report Signed Patient: Pippa Camilo IMR#: [id number] : 1960Acct:[id number] Age/Sex: 61 / FADM Date: 06/11/22 Loc: HO.US Attending Dr: Uli Prakash MD Ordering Physician: ULI PRAKASH MD Date of Service: 06/11/22 Procedure(s): US venous duplex LE RT Accession Number(s): [id number] cc: ULI PRAKASH MD EXAMINATION: US VENOUS [...] in OV> 06/11/22 1500 DD/ 1415 TD/TT: Senior Automation Engineer: JOSE us [facility] External Provider CV VASC ULAR PROCEDURES Edited Result - Final [facility] [address] [place] [address] * XR Chest 2 Views (05/19/2022 5:03 PM EDT) Anatomical Region Laterality Modality Chest Radiographic Suzanne ging 05/19/2022 5:03 PM EDT Narrative 05/25/2022 1:42 PM EDT ? [facility] ?[address] ?[place], [place] [address] ?XRay Report ? Signed ? Patient: Renetta Colon,Pippa I ?MR#: [id number] ?? [id number] ? : 1960 ?Acct:[id number] ? Age/Sex: 61 / F ?ADM Date: 05/19/22 ? Loc: HO.XRAY ? Attending Dr: Uli Prakash MD ? Ordering Physician: ULI PRAKASH MD ?? Date of Service: 05/19/22 ?? Procedure(s): XR chest 2V ?? Accession Number(s): [id number] ? cc: ULI PRAKASH MD ? EXAMINATION: [...] 1340 ? DD/ 1703 ? TD/TT: ? Senior Automation Engineer: SERGIO ? Procedure Note Joanie, Image - 05/25/[address] [address] XRay Report Signed Patient: Pippa Camilo [facility]#: [id number] : 1960Acct:[id number] Age/Sex: 61 / FADM Date: 05/19/22 Loc: [facility] Attending Dr: Uli Prakash MD Ordering Physician: ULI PRAKASH MD Date of Service: 05/19/22 Procedure(s): XR chest 2V Accession Number(s): [id number] cc: ULI PRAKASH MD EXAMINATION: XR CHEST [...] in OV> 05/25/22 1340 DD/ 1703 TD/TT: Senior Automation Engineer: SERGIO [facility] External Provider IMG XR PROCEDURES Edited Result - Final documented in this encounter Visit Diagnoses Not on filedocumented in this encounter Care Teams Color Maker Formulator Relationship Specialty Start Date End Date Name, MD Edmund [address] [place] [address] PCP - General Family Medicine 04/04/15 documented as of this encounter
--- OUTSIDE RECORDS SUMMARY | 2024-07-10 15:04 | XMS_ITS | Clinical Summary ---
Author Organization [facility] Address [address] [place] [address] Phone Care Team Providers Care Forensic Document Examiner Name Role Phone Name, Edmund HERNANDEZ Primary Care Provider [phone] Allergies Active Allergy Reactions Criticality Noted Date Comments Iodinated Contrast Media Nausea And Vomiting,Other,Swellin g 03/06/2008 Throat closing Medical History Medical History Date Comments Diabetes mellitus (CMS/HCC V24, CMS/[facility] V28) Disease of thyroid gland Tachycardia Asthma [...] mmol/L LAB CHEMISTRY METHOD 02/05/2024 3:56 PM [facility] Potassium 4.3 3.5 - 5.5 mmol/L LAB CHEMISTRY METHOD 02/05/2024 3:56 PM [facility] Chloride 110 96 - 110 mmol/L LAB CHEMISTRY METHOD 02/05/2024 3:56 PM [facility] CO2 26 21 - 32 mmol/L LAB CHEMISTRY METHOD 02/05/2024 3:56 PM [facility] Anion Gap 8 3 - 11 LAB CHEMISTRY METHOD 02/05/2024 3:56 PM [facility] Glucose 113(H) 70 - 100 mg/dL LAB CHEMISTRY METHOD 02/05/2024 3:56 PM [facility] BUN 12 5 - 25 mg/dL LAB CHEMISTRY METHOD 02/05/2024 3:56 PM [facility] Creatinine 0.76 0.50 - 1.10 mg/dL LAB CHEMISTRY METHOD 02/05/2024 3:56 PM [facility] eGFR 89 >=60 mL/min/1. 73m2 LAB CHEMISTRY METHOD 02/05/2024 3:56 PM [facility] Comment:Calculation based on the??Chronic Kidney Disease Epidemiology Collaboration (CKD-EPI) equation refit??without adjustment for race. BUN/Creatinine Ratio 15.8 LAB CHEMISTRY METHOD 02/05/2024 3:56 PM [facility] Calcium 10.2 8.5 - 10.5 mg/dL LAB CHEMISTRY METHOD 02/05/2024 3:56 PM [facility] AST (SGOT) 25 10 - 42 unit/L LAB CHEMISTRY METHOD 02/05/2024 3:56 PM [facility] ALT (SGPT) 31 10 - 60 unit/L LAB CHEMISTRY METHOD 02/05/2024 3:56 PM [facility] Alkaline Phosphatase 112 42 - 121 unit/L LAB CHEMISTRY METHOD 02/05/2024 3:56 PM [facility] Total Protein 7.1 6.0 - 8.0 g/dL LAB CHEMISTRY METHOD 02/05/2024 3:56 PM [facility] Albumin 3.8 3.2 - 5.0 g/dL LAB CHEMISTRY METHOD 02/05/2024 3:56 PM [facility] Total Bilirubin 0.4 0.0 - 1.4 mg/dL LAB CHEMISTRY METHOD 02/05/2024 3:56 PM [facility] Blood Venous blood specimen / Unknown Venipuncture / Unknown 02/05/2024 3:05 PM EST 02/05/2024 3:30 PM EST us Bowen Juarez MD LAB BLOOD ORDERABLES Nazanin l Result [facility] [address] [place] [address], * DX MAMMO INCL CAD BI (11/11/2016 [...] Most Recently Relevant to Health Maintenance Insurance [facility] MEDICARE Member Subscriber Plan / Payer (Ef fective 2020-Present) Name:Pippa Camilo I Relation to Subscriber:Self Name:Pippa Camilo I Payer ID:[id number] Group ID:[id number] Type:Not on file Address: [place] [place] [address] Care Teams Forensic Document Examiner Relationship Specialty Start Date End Date Name, MD Edmund [address] [place], [place] PCP - General Internal Medicine 02/07/08
--- OUTSIDE RECORDS SUMMARY | 2024-07-10 15:04 | XMS_ITS | Encounter Summary ---
Author Organization [employer] Address 75 [facility] 7t [place] [address] Care Team Providers Care Paediatric Physiotherapist Name Role Phone Name, Edmund HERNANDEZ Primary Care Provider [phone] Reason for Visit * Reason Comments Med Refill Encounter Details Date Type Department Care Team ([facility] st Contact Info) Description 01/20/2024 Refill [facility] MEDICINE [address] [place], [place] [phone] Name, MD Edmund [address] [place] [address] Social History Tobacco Use Types Packs/Day Years [...] EDT Office Visit [facility] MEDICINE [address] [place] [address] Name, MD Edmund [address] [place] [address] documented as of this encounter Visit Diagnoses Not on filedocumented in this encounter Additional Health Concerns Assessment Noted Time PHQ-9 Depression Total Score: 0 07/29/19 24 9:26 AM EDT documented as of this encounter Care Teams Paediatric Physiotherapist Relationship Specialty Start Date End Date Name, MD Edmund [address] [place] [address] PCP - General Family Medicine 04/04/15 documented as of this encounter
--- OUTSIDE RECORDS SUMMARY | 2024-07-10 15:04 | XMS_ITS | Encounter Summary ---
Author Organization [employer] Address 75 [facility] 7t [place] [address] Care Team Providers Care Adjustment Clerk Name Role Phone Name, Edmund HERNANDEZ Primary Care Provider [phone] Reason for Visit * Reason Comments Med Refill Encounter Details Date Type Department Care Team ([facility] st Contact Info) Description 02/10/2024 Refill [facility] CHC MED & PEDS [address] [place], [place] [phone] Name, MD Edmund [address] [place] [address] Social History Tobacco Use Types Packs/Day Years [...] [facility] [address] [place] [address] Name, MD Edmund [address] [place] [address] documented as of this encounter Visit Diagnoses Not on filedocumented in this encounter Additional Health Concerns Assessment Noted Time PHQ-9 Depression Total Score: 0 07/29/19 24 9:26 AM EDT documented as of this encounter Care Teams Adjustment Clerk Relationship Specialty Start Date End Date Name, MD Edmund [address] [place] [address] PCP - General Family Medicine 04/04/15 documented as of this encounter
--- OUTSIDE RECORDS SUMMARY | 2024-07-10 15:04 | XMS_ITS | Encounter Summary ---
Author Organization [employer] Address 75 [facility] 7t [place] [address] Care Team Providers Care Rn Allergy Name Role Phone Name, Edmund HERNANDEZ Primary Care Provider [phone] Reason for Visit * Reason Onset Date Comments mail appt slip 03/15/2024 Encounter Details Date Type Department Care Team ([facility] st Contact Info) Description 03/15/2024 Telephone [facility] ADULT DENTAL [address] [place] [address] Lillie Witt mail appt slip Social History [...] Description 07/17/2024 10:00 AM EDT Office Visit [facility] MEDICINE [address] [place] [address] Name, MD Edmund [address] [place] [address] documented as of this encounter Visit Diagnoses Not on filedocumented in this encounter Additional Health Concerns Assessment Noted Time PHQ-9 Depression Total Score: 0 07/29/19 24 9:26 AM EDT documented as of this encounter Care Teams Rn Allergy Relationship Specialty Start Date End Date Name, MD Edmund [address] [place] [address] PCP - General Family Medicine 04/04/15 documented as of this encounter
--- OUTSIDE RECORDS SUMMARY | 2024-07-10 15:04 | XMS_ITS | Encounter Summary ---
Author Organization [employer] Address 75 [facility] 7t [place] [address] Care Team Providers Care Bobbin Stripper Name Role Phone Name, Edmund HERNANDEZ Primary Care Provider [phone] Reason for Visit * Reason Comments Med Refill Encounter Details Date Type Department Care Team ([facility] st Contact Info) Description 01/09/2024 Refill [facility] MEDICINE [address] [place], [place] [phone] Name, MD Edmund [address] [place] [address] Social History Tobacco Use Types Packs/Day Years [...] Office Visit [facility] MEDICINE [address] [place] [address] Name, MD Edmund [address] [place] [address] documented as of this encounter Visit Diagnoses Not on filedocumented in this encounter Additional Health Concerns Assessment Noted Time PHQ-9 Depression Total Score: 0 07/29/19 24 9:26 AM EDT documented as of this encounter Care Teams Bobbin Stripper Relationship Specialty Start Date End Date Name, MD Edmund [address] [place] [address] PCP - General Family Medicine 04/04/15 documented as of this encounter
--- OUTSIDE RECORDS SUMMARY | 2024-07-10 15:04 | XMS_ITS | Clinical Summary ---
Author Organization [employer] Address [address] [facility] 7 [place] [address] Care Team Providers Care Tinning Equipment Tender Name Role Phone Name, Edmund HERNANDEZ Primary Care Provider [phone] Allergies Active Allergy Reactions Criticality Noted Date Comments Alprazolam Nausea And Vomiting,Other,Swell ing 03/06/2008 Patient describes that she had a withdrawal from this medication causing extreme anxiety and dificulty breathin. She denies an actual allergy to this medicine Aspirin Nausea And Vomiting,Swelling High 03/06/2008 Other reaction(s): OTHER LegacyRecord#[id number] Throat closing Green Dye High 11/15/2018 IV DYE Iodinated Contrast Media Nausea And Vomiting,Swelling 03/06/2008 Other reaction(s): arm swelling Other reaction(s): OTHER Throat closing Iodine High 04/04/2015 LegacyRecord#[id number] Tuberculin Ppd High 11/15/2018 Tuberculin Purified Protein Derivative 08/20/2022 Other reaction(s): ?reaction Tuberculin, Ppd 01/09/2013 LegacyRecord#[id number] Medications fluticasone (Flonase) 50 MCG/ACT nasal sprayIndication [...] day. 30 capsule 2 Active glucose blood ([facility]) test stripIndication s:Type 2 diabetes mellitus without complication, without long-term current use of insulin ([facility]) USE TO TEST BLOOD SUGAR ONCE A DAY 100 strip 11 024 Active hydrocortisone 2.5 % ointmentIndicat ions:Fissure in skin Apply topically 2 times daily. 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 Assessment & Plan (2023 3:54 PM EDT): In close care with oncology, utd on mammogram Hypertrophic condition of skin 10/26/2018 Overview (08/20/2022): Overview Note: Hypertrophic disorders of skin #[id number]# EXT_ID: [id number] 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 Overview (08/20/2022): Overview Note: Monoarthritis, not elsewhere classified, knee #2512401# EXT_ID: [id number] Assessment & Plan (2023 4:01 PM EDT): Trial tramadol, Medication Indications, side effects and duration of therapy reviewed, pt aware to call clinic for worsening symptoms or failure to resolve Dry eye syndrome 10/04/2018 Overview (08/20/2022): Overview Note: Dry eye syndrome #[id number]# EXT_ID: [id number] Pain in knee 10/04/2018 Overview (08/20/2022): Overview Note: Pain in knee #[id number]# EXT_ID: [id number] Intraductal carcinoma in situ of breast 08/04/19 19 Overview (08/20/2022): Overview Note: Intraductal carcinoma in situ of breast #[id number]# EXT_ID: [id number] Benign mammary dysplasia 08/01/2018 Overview (08/20/2022): Overview Note: Other benign mammary dysplasias #1128052# EXT_ID: [id number] Mild persistent asthma 07/27/2018 Overview (08/20/2022): Overview Note: Mild intermittent asthma #5516650# EXT_ID: [id number] Assessment & Plan (06/13/2023 2:10 PM EDT): Stable mild intermittent, seasonal allergies are triggers, Anxiety disorder 07/27/2018 Overview (08/20/2022): The patient follows with Dr Taylor Overview Note: Other anxiety disorders #7170101# EXT_ID: [id number] Assessment & Plan (2023 3:55 PM EDT): Reports stable and well managed, continue current regimen Hypertension 07/27/2018 Overview (06/13/2023): At goal today, continue amlodipine and metoprolol, consider josefa or arb given concurrent dm, defer to pcp Joint pain 11/08/2017 Diabetes mellitus, type 2 05/21/2016 Overview (08/20/2022): Overview Note: Type 2 diabetes mellitus #4450766# EXT_ID: [id number] Allergic rhinitis 05/21/2016 Assessment & Plan (2023 [...] Overview (08/20/2022): Overview Note: Carpal tunnel syndrome #1428727# EXT_ID: [id number] Atypical lobular hyperplasia (ALH) of breast Overview (08/20/2022): Patient [facility] and [facility] and with Dr Avina. She was on Tamoxigen for 5 years Umbilical hernia 07/16/2011 Impaired fasting glucose 01/28/2011 Breast microcalcification, mammographic 01/09/20 11 Overview (08/20/2022): Biopsied in [place] 07-07-2009, fibrocystic disease. Acquired hypothyroidism 01/05/2011 Overview (08/20/2022): Overview Note: Other hypothyroidism #6192025# EXT_ID: [id number] Assessment & Plan (06/28/2023 11:56 AM EDT): [...] 12/08/2018 12/06/2023 Overview (08/20/2022): Overview Note: Cough #2303220# EXT_ID: [id number] Major depressive disorder, recurrent 10/26/2018 06/29/2023 Overview (04/06/2022): Overview Note: Major depressive disorder, recurrent #5414567# EXT_ID: [id number] Lung mass 01/08/2011 2023 Overview (08/20/2022): F/u recommended somewhere between 01/09 and 07/10 Abdominal pain 03/06/2008 12/06/2023 Overview (08/20/2022): Overview Note: Dorsalgia #9955500# EXT_ID: [id number] Cervical spine disc herniation Overview Note: Other abdominal pain #2165626# EXT_ID: [id number] Asthma 03/06/2008 12/06/2023 Assessment & Plan (07/30/2023 4:20 PM EDT): Recent exacerbation, no audible wheeze today, continue inhalers Assessment & Plan (2023 4:09 PM EDT): Continue current inhalers, seasonal allergies are trigger, monitor for increased albuterol usage Encounters Date Type Department Care Team Description 07/03/2024 Telephone [facility] [address] [place] [address] Edmund Valentino MD Medication Question; Med Refill 06/29/2024 [place] [address] Edmund Valentino MD Mild intermittent asthma, unspecified whether complicated 06/11/2024 11:20 AM EDT Office Visit [facility] [address] [place] [address] Freda Mauricio MD Subacute pansinusitis (Primary Dx); Body aches; Allergic rhinitis, unspecified seasonality, unspecified trigger 06/11/2024 Travel 05/16/2024 2:00 PM EDT Office Visit [facility] [address] [place] [address] Shona Blandon NP Dysphagia, unspecified type (Primary Dx); Cough in adult patient; Persistent cough; Hoarseness of voice; Lymphadenopathy of left cervical region 05/11/2024 1:20 PM EDT Office Visit [facility] [address] [place] [address] Yaa Daly MD History of strep pharyngitis (Primary Dx); Mild intermittent asthma, unspecified whether complicated; Neck pain on left side 05/11/2024 Travel 04/19/2024 10:45 AM EST Office Visit [facility] [address] [place] [address] Alyssa Sandra MD Chronic bilateral low back pain with left-sided sciatica (Primary Dx) 04/19/2024 9:45 AM EST Office Visit [facility] [address] [place] [address] Name, MD Edmund Type 2 diabetes mellitus without complication, without long-term current use of insulin ([facility]) (Primary Dx); Acquired hypothyroidism; Strep throat from [...] Description 07/17/2024 10:00 AM EDT Office Visit [facility] [address] [facility] [place] [address] Name, [place] [address] Health Maintenance Due Date Last Done Comments [...] complication, without long-term current use of insulin ([facility]) ALBUMIN, RANDOM URINE W/CREATININE Routine 12/06/2023 10:00 AM EDT Type 2 diabetes mellitus without complication, without long-term current use of insulin ([facility]) POCT GLYCATED HEMOGLOBIN, TOTAL Routine 12/06/2023 9:03 AM EDT Type 2 diabetes mellitus without complication, without long-term current use of insulin ([facility]) BI MAMMOGRAM SCREENING TOMOSYNTHESIS BILATERAL Routine 07/05/2023 1:55 PM EDT LIPID PANEL, STANDARD Routine 06/07/2023 11:34 AM EDT Type 2 diabetes mellitus without complication, without long-term current use of insulin ([facility]) DIABETES EYE EXAM Routine 03/29/2023 COLONOSCOPY Routine [...] is included. Influenza B Negative Negative, Indeterminate [facility] QC Media Lot # [id number] [facility] Lot# Expiration Date [id number] [facility] Swab 06/11/2024 11:4 4 AM EDT us Freda Mauricio MD POINT OF CARE TEST ENTER /EDIT ORDERABLES Final Result [facility] [address] [place] [address] [phone] * POCT Rapid Influenza A HUMPHREY ID NOW (06/11/2024 11:44 AM EDT) Only the most recent of3 resultswithin the time period is included. Influenza A Negative Negative, Indeterminate [facility] QC Media Lot # [id number] [facility] Lot# Expiration Date 10825 [facility] Swab 06/11/2024 11:4 4 AM EDT Freda Mauricio MD POINT OF CARE TEST ENTER /EDIT ORDERABLES Final Result [facility] [address] [place] [address] [phone] * POCT Rapid Covid-19 BinaxNOW (06/11/2024 11:38 AM EDT) Only the most recent of2 resultswithin the time period is included. Rapid COVID Ag Negative QC Media Lot # [id number] Lot# Expiration Date [id number] Swab 06/11/2024 11:3 8 AM EDT Freda Mauricio MD POINT OF CARE TEST ENTER /EDIT ORDERABLES Final Result * XR Chest 2 Views (05/17/2024 11:56 AM EDT) Anatomical Region Laterality Modality Chest Radiographic Szuanne ging 05/17/2024 11:5 6 AM EDT Narrative 05/17/2024 12:27 PM EDT ?[facility] ?[address] ?[place] [address] ?XRay Report ? Signed ? Patient: Renetta Colon,Pippa I ?MR#: [id number] ?? [id number] ? : 1960 ?Acct:[id number] ? Age/Sex: 63 / F ?ADM Date: 03/20/25 ? Loc: HO.HHCX ? Attending Dr: Shona Blandon ? Ordering Physician: Shona Blandon ?? Date of Service: 05/17/24 ?? Procedure(s): XR chest 2V ?? Accession Number(s): [id number] ? cc: Shona Blandon ? EXAMINATION: ??XR [...] DD/ 1156 ? TD/TT: 05/17/24 1206 ? Software Development Test Engineer: ? Procedure Note Joanie, Perfecto - 05/17/2024 [place] [address] XRay Report Signed Patient: Pippa Camilo IMR#: [id number] : 1960Acct:[id number] Age/Sex: 63 / FADM Date: 05/17/24 Loc: HO.HHCX Attending Dr: Shona Blandon Ordering Physician: Shona Blandon Date of Service: 05/17/24 Procedure(s): XR chest 2V Accession Number(s): [id number] cc: Shona Blandon EXAMINATION: XR CHEST 2 [...] 05/17/24 1224 DD/ 1156 TD/TT: 05/17/24 1206 Software Development Test Engineer: [facility] CONTRACT MODELER IMG XR PROCEDURES Final Result * POCT COVID-19 Ag Humphrey ID NOW (05/16/2024 2:10 PM EDT) [facility] Coronavirus Antigen PCR Negative Negative, Indeterminate, None Detected, Invalid, Specimen unsatisfactory for evaluation, Weakly Positive Swab 05/16/2024 2:10 PM EDT [facility] POINT OF CARE TEST ENTER/EDIT O RDERABLES Final Result * POCT rapid strep A manually resulted (05/16/2024 2:10 PM EDT) Only the most recent of2 resultswithin the time period is included. [facility] Rapid Strep A Screen Negative Negative, None Detected Swab 05/16/2024 2:10 PM EDT [facility] POINT OF CARE TEST ENTER/EDIT O RDERABLES Final Result * T-SPOT??.TB (05/11/2024 2:13 PM EDT) Only the most recent of2 resultswithin the time period is included. [facility] T Spot TB Negative Negative [facility] Comment:A negative test resu lt [...] as aquantitative test. TS PANEL A 0 [facility] TS PANEL B 0 [facility] Negative Control Passed [facility] Positive Control Passed [facility] Comment:For additional infor mation, please refer tohttp://education.[employer]/faq/WMK009(This link is being provided for informational/educational purposes only.)THIS TEST WAS PERFORMED AT:[employer]/[id number] [place] [address]SVKLQPHMICHELLE HALL MD,PHD 05/11/2024 2:13 PM EDT 05/11/2024 4:20 PM EDT us Edmund Valentino MD LAB BLOOD ORDERABLES Final Resul t [facility] [address] [place] [phone] * (ABNORMAL) Basic Metabolic Panel (05/11/2024 2:13 PM EDT) Sodium 142 135 - 145 mmol/L [facility] Potassium 3.7 3.3 - 5.1 mmol/L [facility] Chloride 104 96 - 108 mmol/L [facility] Carbon Dioxide 30(H) 22 - 29 mmol/L [facility] Anion Gap 12 12 - 20 [facility] Urea Nitrogen (BUN) 17(H) 9 - 16 mg/dL [facility] Creatinine, Serum 0.74 0.5 - 1.4 mg/dL [facility] Estimated Glomerular Filt Rate >60 [facility] Comment:Chronic Kidney Disea se: Estimated GFR < 60 mL/min/1.39p5Rrywle Kidney Disease: Estimated GFR < 15 mL/min/1.73m2 Glucose 110 60 - 115 mg/dL [facility] Calcium 10.4(H) 8.4 - 10.2 mg/dL [facility] Blood Venous blood specimen / Unknown 05/11/2024 2:13 PM EDT 05/11/2024 4:20 PM EDT Yaa Daly MD LAB BLOOD ORDERABLES Final Re sult Performing Organization Address City/[facility]/ZIP Co de Phone Number [facility] [address] [place] [phone] * TSH W/Reflex to FT4 (04/19/2024 10:25 AM EST) TSH reflex Free T4 2.19 0.32 - 4.0 uIU/mL [facility] Blood Venous blood specimen / Unknown 04/19/2024 10:25 AM EST 04/19/2024 11:36 AM EST Result [facility] Edmund Valentino MD LAB BLOOD ORDERABLES Final Resul t Performing Organization Address City/[facility]/ZIP Co de Phone Number [facility] [address] [place] [phone] * POCT Glucose (04/19/2024 9:55 AM EST) Glucose Blood, POC 129 60 - 200 mg/dL QC Media Lot # [id number] Lot# Expiration Date Blood Capillary blood specimen / Unknown 04/19/2024 9:55 AM EST Result [facility] Edmund Valentino MD POINT OF CARE TEST ENTER/EDIT OR DERABLES Final Result * Albumin, Random Urine W/Creatinine (12/06/2023 10:00 AM EDT) Creatinine, Urine 123.16 mg/dL [facility] Microalbumin Urine 11.0 mg/L [facility] Microalbum Creatinine Ratio Ur 8.9 <30 ug/mg cr [facility] Comment:Albumin/Creatinine R atio Reference Ranges: Normal: < 30 ug/mg creatinine Microalbuminuria: 30 - 300 ug/mg creatinineClinical Albuminuria: > 300 ug/mg creatinine Urine (Urine, Random) 12/06/2023 10:00 AM EDT 12/06/2023 11:23 AM EDT us Edmund Valentino MD LAB URINE ORDERABLES Final Resul t [facility] [address] [place] [phone] * (ABNORMAL) POCT HGB A1C (12/06/2023 9:03 AM EDT) Hemoglobin A1C 6.6(A) 4.0 - 6.0 % QC Media Lot # [id number] Lot# Expiration Date [id number] Blood 12/06/2023 9:03 AM EDT us Edmund Valentino MD POINT OF CARE TEST ENTER/EDIT OR DERABLES Final Result * BI Mammogram Screening Tomosynthesis Bilateral (07/05/2023 1:55 PM EDT) Anatomical Region Laterality Modality Breast Bilateral Mammography 07/05/2023 1:55 PM EDT Narrative 08/04/2023 1:26 PM EDT ? [facility] ? [address] ?[place] [address] ? Mammography Report ? Signed ? Patient: Renetta Colon,Pippa I ?MR#: [id number] ?? [id number] ? : 1960 ?Acct:[id number] ? Age/Sex: 63 / F ?ADM Date: 05/07/24 ? Loc: HO.MAMMO ? Attending Dr: Tank Avina MD ? Ordering Physician: Tank Avina MD ?Results: 2Benig ?? n Findings ? Date of Service: 07/05/23 ?Follow Up: 1 Year From Orig ?? inal Mammogram ? Procedure(s): MM tomosynthesis screening BI ?? Accession Number(s): [id number] ? cc: Tank Avina MD; Name,Edmund HERNANDEZ [...] 1323 ? DD/ 1355 ? TD/TT: ? Software Development Test Engineer: ? Procedure Note Donotchandaninterpreter, Image - 08/04/2023 [facility] [address] [place], [place] [address] Mammography Report Signed Patient: Pippa Camilo IMR#: [id number] : 1960Acct:[id number] Age/Sex: 63 / FADM Date: 07/05/23 Loc: HO.MAMMO Attending Dr: Tank Avina MD Ordering Physician: Tank Avina MDResults: 2Benig n Findings Date of Service: 07/05/23Follow Up: 1 Year From Orig inal Mammogram Procedure(s): MM tomosynthesis screening BI Accession Number(s): [id number] cc: Tank Avina MD; Name,Edmund HERNANDEZ EXAMINATION: [...] in OV> 08/04/23 1323 DD/ 1355 TD/TT: Software Development Test Engineer: [facility] External Provider IMG BI PROCEDURES Final Result * (ABNORMAL) Lipid Panel, Standard (06/07/2023 11:34 AM EDT) Triglycerides 125 <150 mg/dL [facility] Comment:Desirable Triglyceri de: less than [...] 190 mg/dL HDL Cholesterol 59 >40 mg/dL [facility] Comment:Desirable HDL: great er than 40 mg/dL Note: This HDL assay may give artificially low results in patients with liver disease. Blood Venous blood specimen / Unknown 06/07/2023 11:34 AM EDT 06/07/2023 1:12 PM EDT Beth Blanco NP LAB BLOOD ORDERABLES Final Resul t [facility] [address] [place] [address] [phone] * Diabetes Eye Exam (03/29/2023) Eye Exam Normal Normal 03/29/2023 us Edmund Name HEALTH MAINTENANCE Final Result * Colonoscopy (05/06/2021) Colonoscopy Normal Normal Narrative Rita Jimenez - 05/06/2021 Recommended 5 year follow up Historical Provider HEALTH MAINTENANCE Final Result from Last 3 Months or Most Recently Relevant to Health Maintenance [place] [address] [place] [address] [facility] < 65 D[facility]AL - [facility] Care Teams Tinning Equipment Tender Relationship Specialty Start Date End Date Name, MD Edmund [address] [place] [phone] PCP - General Family Medicine 04/04/15
--- OUTSIDE RECORDS SUMMARY | 2024-07-10 15:04 | XMS_ITS | Encounter Summary ---
Author Organization [employer] Address [address] [facility] 7t [place] [address] Care Team Providers Care Flatwork Catcher Name Role Phone Name, Edmund HERNANDEZ Primary Care Provider [phone] Reason for Visit * Reason Comments Med Refill Encounter Details Date Type Department Care Team ([facility] st Contact Info) Description 01/27/2024 Refill [facility] [address] [place], [place] [phone] Beth Blanco, [place] [address] [place] [address] Social History Tobacco Use Types Packs/Day Years [...] Description 07/17/2024 10:00 AM EDT Office Visit [facility] [address] [place] [address] Name, MD Edmund [address] [place] [address] documented as of this encounter Visit Diagnoses Not on filedocumented in this encounter Additional Health Concerns Assessment Noted Time PHQ-9 Depression Total Score: 0 07/29/19 24 9:26 AM EDT documented as of this encounter Care Teams Flatwork Catcher Relationship Specialty Start Date End Date Name, MD Edmund [address] [place] [address] PCP - General Family Medicine 04/04/15 documented as of this encounter
--- OUTSIDE RECORDS SUMMARY | 2024-07-10 15:05 | XMS_ITS | Encounter Summary ---
Author Organization [employer] Address 75 [facility] 7t [place] [address] Care Team Providers Care Director Electrical Engineering Name Role Phone Name, Edmund HERNANDEZ Primary Care Provider [phone] Reason for Visit * Reason Comments Med Refill Encounter Details Date Type Department Care Team ([facility] st Contact Info) Description 12/30/2022 Refill [facility] [address] [place], [place] [phone] Name, MD Edmund [address] [place] [address] Social History Tobacco Use Types Packs/Day Years [...] t he electric, gas, oil or water School Yourself threatened to shut off services in your [...] Description 07/17/2024 10:00 AM EDT Office Visit [facility] [address] [place] [address] NameEdmund MD [address] [place] [address] documented as of this encounter Visit Diagnoses Not on filedocumented in this encounter Care Teams Director Electrical Engineering Relationship Specialty Start Date End Date Edmund Valentino MD [address] [place] [address] PCP - General Family Medicine 04/04/15 documented as of this encounter
--- OUTSIDE RECORDS SUMMARY | 2024-07-10 15:05 | XMS_ITS | Encounter Summary ---
Author Organization [employer] Address 75 [facility] 7t [place] [address] Care Team Providers Care Aerodynamics Teacher Name Role Phone Name, Edmund HERNANDEZ Primary Care Provider [phone] Reason for Visit * Reason Comments Med Refill Encounter Details Date Type Department Care Team ([facility] st Contact Info) Description 01/19/[address] [facility] [address] [place], [place] [phone] Name, MD Edmund [address] [place] [address] Social History Tobacco Use Types Packs/Day Years Used Date Smoking Tobacco: Never Smokeless Tobacco: Never Alcohol Use Standard Drinks/Week Comments Never 0 (1 standard drink = 0.6 oz pur e alcohol) Housing Stability Answer Date Recorded What is your housing situation today? I have arno toney 12/18/[address] you [...] t he electric, gas, oil or water [employer] threatened to shut off services in your [...] Description 07/17/2024 10:00 AM EDT Office Visit [facility] [address] [place] [phone] NameEdmund MD [address] [place] [address] documented as of this encounter Visit Diagnoses Not on filedocumented in this encounter Care Teams Aerodynamics Teacher Relationship Specialty Start Date End Date Edmund Valentino MD [address] [place] [address] PCP - General Family Medicine 04/04/15 documented as of this encounter
--- OUTSIDE RECORDS SUMMARY | 2024-07-10 15:05 | XMS_ITS | Encounter Summary ---
Author Organization [employer] Address [address] [facility] [address] [address] Care Team Providers Care Caustic Room Attendant Name Role Phone Name, Edmund HERNANDEZ Primary Care Provider [phone] Reason for Visit * Reason Onset Date Comments Pre OP 06/30/2022 Encounter Details Date Type Department Care Team ([facility] st Contact Info) Description 06/30/2022 Telephone [facility] [address] [place] [address] [phone] Name, MD Edmund [address] [place] [address] Pre OP Social History Tobacco Use Types [...] repair on 09/22/[address] Cobb at [facility]. Pt will be under general and popliteal [...] 2:33 PM EDT Tc from Bill from [facility] orthopedics returning call for PRE-OP appt , please see notes also stated surgeon will place order for EKG. Please contact at [phone] * Telephone Encounter - Julee Chung - 06/30/2022 1:46 PM EDT TC from Bill from [facility] requesting a PRE-OP Location: [address] Procedure: tendon repair Date of procedure: 09/22/22 @ 11:30am Labs: yes Ekg: yes Anesthesia Type : general and popliteal block Surgeon Name: donna tomlinson documented in this encounter Plan of Treatment Upcoming Encounters Date Type Department Care Team (Late st Contact Info) Description 07/17/2024 10:00 AM EDT Office Visit [facility] [address] [place] [address] Name, MD Edmund [address] [place] [address] documented as of this encounter Visit Diagnoses Not on filedocumented in this encounter Care Teams Caustic Room Attendant Relationship Specialty Start Date End Date Name, MD Edmund [address] [place] [address] PCP - General Family Medicine 04/04/15 documented as of this encounter
--- OUTSIDE RECORDS SUMMARY | 2024-07-10 15:05 | XMS_ITS | Encounter Summary ---
Author Organization [employer] [facility] Address [address] [facility] 7 [place] [address] Care Team Providers Care Securities Settlement Processor Name Role Phone Name, Edmund HERNANDEZ Primary Care Provider [phone] Encounter Details Date Type Department Care Team (Late st Contact Info) Description 09/02/2022 Abstract [facility] MED[facility]INE [address] [place] [address] [phone] Name, MD Edmund [address] [place] [phone] Social History Tobacco Use Types Packs/Day Years [...] AM EDT Office Visit [facility] [address] [place] [address] [phone] Name, MD Edmund [address] [place] [address] documented as of this encounter Visit Diagnoses Not on filedocumented in this encounter Care Teams Securities Settlement Processor Relationship Specialty Start Date End Date Name, MD Edmund [address] [place] [address] PCP - General Family Medicine 04/04/15 documented as of this encounter
--- OUTSIDE RECORDS SUMMARY | 2024-07-10 15:05 | XMS_ITS | Encounter Summary ---
Author Organization [employer] Address [address] [facility] 7t [place] [address] Care Team Providers Care Quill Machine Tender Name Role Phone Name, Edmund HERNANDEZ Primary Care Provider [phone] Reason for Visit * Reason Comments Med Refill Encounter Details Date Type Department Care Team ([facility] st Contact Info) Description 05/06/2023 Refill [facility]INE [address] [place], [place] [phone] Name, MD Edmund [address] [place] [address] Social History Tobacco Use Types Packs/Day Years [...] t he electric, gas, oil or water [employer] threatened to shut off services in your [...] Description 07/17/2024 10:00 AM EDT Office Visit [facility] [address] [place] [phone] NameEdmund MD [address] [place] [address] documented as of this encounter Visit Diagnoses Not on filedocumented in this encounter Care Teams Quill Machine Tender Relationship Specialty Start Date End Date NameEdmund MD [address] [place] [address] PCP - General Family Medicine 04/04/15 documented as of this encounter
--- OUTSIDE RECORDS SUMMARY | 2024-07-10 15:05 | XMS_ITS | Encounter Summary ---
Author Organization [employer] Address [address] [facility] 7t [place] [address] Care Team Providers Care Trainer Name Role Phone Name, Edmund HERNANDEZ Primary Care Provider [phone] Reason for Visit * Reason Onset Date Comments Appointment Request 05/16/2023 Encounter Details Date Type Department Care Team ([facility] st Contact Info) Description 05/16/2023 Telephone [facility] MEDICINE [address] [place], [place] [phone] Name, MD Edmund [address] [place] [address] Appointment Request Social History Tobacco Use Types [...] to cancel and reschedule appt for 05/15 creative writer did cancel per patients request documented in this encounter Plan of Treatment Upcoming Encounters Date Type Department Care Team (Late st Contact Info) Description 07/17/2024 10:00 AM EDT Office Visit [facility] MEDICINE [address] [place] [address] Name, MD Edmund [address] [place] [address] documented as of this encounter Visit Diagnoses Not on filedocumented in this encounter Care Teams Trainer Relationship Specialty Start Date End Date Name, MD Edmund [address] [place] [address] PCP - General Family Medicine 04/04/15 documented as of this encounter
--- OUTSIDE RECORDS SUMMARY | 2024-07-10 15:05 | XMS_ITS | Encounter Summary ---
Author Organization [employer] [facility] Address [address] [facility] 7 [place] [address] Care Team Providers Care Conservation Science Teacher Name Role Phone Name, Edmund HERNANDEZ Primary Care Provider [phone] Encounter Details Date Type Department Care Team (Late st Contact Info) Description 09/07/2022 Abstract [facility] MED[facility]INE [address] [place] [address] [phone] Name, MD Edmund [address] [place] [phone] Social History Tobacco Use Types Packs/Day Years [...] Description 07/17/2024 10:00 AM EDT Office Visit [facility] [address] [place] [address] [phone] Name, MD Edmund [address] [place] [address] documented as of this encounter Procedures Procedure Name Priority Date/Time Associated Diagnosis Comments COLONOSCOPY Routine 05/06/2021 documented in this encounter Results * Hm Colonoscopy (05/06/2021) Colonoscopy Normal Normal Narrative Rita Jimenez - 05/06/2021 Recommended 5 year follow up us Historical Provider HEALTH MAINTENANCE Final Result documented in this encounter Visit Diagnoses Not on filedocumented in this encounter Care Teams Conservation Science Teacher Relationship Specialty Start Date End Date Name, [place] [address] PCP - General Family Medicine 04/04/15 documented as of this encounter
--- OUTSIDE RECORDS SUMMARY | 2024-07-10 15:05 | XMS_ITS | Encounter Summary ---
Author Organization [employer] [facility] Address [address] [place] [address] [place], [place] [address] Care Team Providers Care Senior Software Development Manager Name Role Phone Name, Edmund HERNANDEZ Primary Care Provider [phone] Encounter Details Date Type Department Care Team (Late Contact Info) Description 08/19/[address] [facility] MEDICINE [address] [place] [address] [phone] NameEdmund MD [address] [place] [address] Social History Tobacco Use Types Packs/Day Years [...] 07/17/2024 10:00 AM EDT Office Visit [facility] [address] [place] [address] [phone] NamedEmund MD [address] [place] [address] [phone] documented as of this encounter Visit Diagnoses Not on filedocumented in this encounter Care Teams Senior Software Development Manager Relationship Specialty Start Date End Date Name, MD Edmund [address] [place] [address] PCP - General Family Medicine 04/04/15 documented as of this encounter
--- OUTSIDE RECORDS SUMMARY | 2024-07-10 15:05 | XMS_ITS | Encounter Summary ---
Author Organization [employer] Address [address] [facility] 7 [place] [address] Care Team Providers Care Carton Filler Name Role Phone Name, Edmund HERNANDEZ Primary Care Provider Reason for Visit * Reason Onset Date Comments Medication Question 07/03/2024 Med Refill 07/03/2024 Encounter Details Date Type Department Care Team ([facility] st Contact Info) Description 07/03/2024 Telephone [facility] MEDICINE [address] [place], [place] [phone] Name, MD Edmund [address] [place], [place] [phone] Medication Question; Med Refill Social History Tobacco [...] TC x 2 placed to pt via [employer] shower attendant (Kvng ID#[id number]) regarding below message about tramadol. Nolalo, LVM [...] for Tramadol 50mg. To be sent to: [id number] - [place], [place] - [address] [facility] IF any questions contact pt at [phone] (costa rican) documented in this encounter Plan of Treatment Upcoming Encounters Date Type Department Care Team (Late st Contact Info) Description 07/17/2024 10:00 AM EDT Office Visit [facility] [address] [place] [address] Name, MD Edmund [address] [place] [address] documented as of this encounter Visit Diagnoses Not on filedocumented in this encounter Additional Health Concerns Assessment Noted Time PHQ-9 Depression Total Score: 0 07/29/19 24 9:26 AM EDT documented as of this encounter Care Teams Carton Filler Relationship Specialty Start Date End Date Name, MD Edmund [address] [place] [address] PCP - General Family Medicine 04/04/15 documented as of this encounter
--- OUTSIDE RECORDS SUMMARY | 2024-07-10 15:05 | XMS_ITS | Encounter Summary ---
Author Organization [employer] Address [address] [facility] 7t [place] [address] Care Team Providers Care Community Relations Liaison Name Role Phone Name, Edmund HERNANDEZ Primary Care Provider Reason for Visit * Reason Comments Med Refill Encounter Details Date Type Department Care Team ([facility] st Contact Info) Description 10/04/2023 Refill [facility] MEDICINE [address] [place], [place] [phone] Name, MD Edmund [address] [place] [address] Mild intermittent asthma, unspecified whether complicated Social [...] Office Visit [facility] MEDICINE [address] [place] [address] Name, MD Edmund [address] [place] [address] documented as of this encounter Visit Diagnoses Diagnosis Mild intermittent asthma, unspecified whether complicated documented in this encounter Additional Health Concerns Assessment Noted Time PHQ-9 Depression Total Score: 0 07/29/19 24 9:26 AM EDT documented as of this encounter Care Teams Community Relations Liaison Relationship Specialty Start Date End Date NameEdmund MD [address] [place] [address] PCP - General Family Medicine 04/04/15 documented as of this encounter
--- OUTSIDE RECORDS SUMMARY | 2024-07-10 15:05 | XMS_ITS | Encounter Summary ---
Author Organization [employer] Address [address] [facility] 7t [place] [address] Care Team Providers Care Turfgrass Management Professor Name Role Phone Name, Edmund HERNANDEZ Primary Care Provider [phone] Reason for Visit * Reason Comments Med Refill Encounter Details Date Type Department Care Team ([facility] st Contact Info) Description 06/24/2023 Refill [facility] MEDICINE 230 [place], [place] [phone] Beth Blanco, SALVATORE [address] [place] [address] Social History Tobacco Use Types Packs/Day Years [...] t he electric, gas, oil or water [employer] threatened to shut off services in your [...] [facility] MEDICINE [address] [place] [phone] NameEdmund MD [address] [place] [address] documented as of this encounter Visit Diagnoses Not on filedocumented in this encounter Care Teams Turfgrass Management Professor Relationship Specialty Start Date End Date NameEdmund MD [address] [place] [address] PCP - General Family Medicine 04/04/15 documented as of this encounter
--- OUTSIDE RECORDS SUMMARY | 2024-07-10 15:05 | XMS_ITS | Encounter Summary ---
Author Organization [employer] Address [address] [facility] 7t [place] [address] Care Team Providers Care Transmissions Systems Operator Name Role Phone Name, Edmund HERNANDEZ Primary Care Provider [phone] Reason for Visit * Reason Comments Med Refill Encounter Details Date Type Department Care Team ([facility] st Contact Info) Description 09/23/[address] [facility] MEDICINE [address] [place], [place] [phone] Name, MD Edmund [address] [place] [address] Mild intermittent asthma, unspecified whether complicated Social [...] Office Visit [facility] MEDICINE [address] [place] [address] Name, MD Edmund [address] [place] [address] documented as of this encounter Visit Diagnoses Diagnosis Mild intermittent asthma, unspecified whether complicated documented in this encounter Additional Health Concerns Assessment Noted Time PHQ-9 Depression Total Score: 0 07/29/19 24 9:26 AM EDT documented as of this encounter Care Teams Transmissions Systems Operator Relationship Specialty Start Date End Date NameEdmund MD [address] [place] [address] PCP - General Family Medicine 04/04/15 documented as of this encounter
--- OUTSIDE RECORDS SUMMARY | 2024-07-10 15:05 | XMS_ITS | Encounter Summary ---
Author Organization [employer] [facility] Address [address] [place] [address] [place], [place] [address] Care Team Providers Care Gas Generator Operator Name Role Phone Name, Edmund HERNANDEZ Primary Care Provider Encounter Details Date Type Department Care Team (Late Contact Info) Description 07/30/2022 Abstract [facility] MEDICINE [address] [place] [address] [phone] NameEdmund MD [address] [place] [phone] Social History Tobacco Use Types Packs/Day Years [...] Description 07/17/2024 10:00 AM EDT Office Visit [facility] MEDICINE [address] [place] [address] [phone] NameEdmund MD [address] [place] [address] [phone] documented as of this encounter Visit Diagnoses Not on filedocumented in this encounter Care Teams Gas Generator Operator Relationship Specialty Start Date End Date Name, MD Edmund [address] [place] [address] PCP - General Family Medicine 04/04/15 documented as of this encounter
== END 2024-07-10 14:25 | disposition home or self-care (01) ==
LOC: HO.HCS 13:53
PROVIDERS: PCP Internal Medicine Geriatric Medicine; Visit Provider Internal Medicine
DX: R07.2 Precordial pain (principal); R00.2 Palpitations
CPT/HCPCS: 93010; 99203

== ENCOUNTER 2024-07-12 11:00 | Outpatient (AMB) | payer OTHER, SELFPAY ==
--- NOTE | 2024-07-12 11:01 | MHC.OFFVIS ---
Vital Signs 07/12/24 11:10 Height 5 ft Weight 156 lb BMI 30.5 BP 136/72 Blood Pressure Location Lt brachial Position Sitting Pulse 99 Intake Visit Reasons: Breast exam (over due) Intake Note: Patient is seen in office for 6 month follow up visit, breast exam. Patient c/o: denies any concerns mm:07/10/24 (not read) Chair Inspector And Leveler Required: Yes Chair Inspector And Leveler Language: Cooperative Manager Services: Chair Inspector And Leveler Present Chair Inspector And Leveler Name: Viky JAUREGUI Information Interpreted: non-clinical & clinical Diplomatic Officer: Diplomatic Officer Present Accompanied by: Self / Same As Patient Allergies tuberculin, purified protein deriva [TB TEST] Allergy (Severe, Verified 07/12/24 11:02) ANGIOEDEMA Medication List - Last Reconciled 07/12/24 by Shabbir Hill MD albuterol sulfate 90 mcg/actuation 2 puffs PO Q4-6H PRN amlodipine 5 mg PO DAILY cephalexin 500 mg PO Q8H 10 days dulaglutide (Trulicity) 0.75 mg subcut QWEEK duloxetine 30 mg PO DAILY fluticasone propionate 50 mcg/actuation 2 sprays intranasal DAILY fluticasone propionate 220 mcg/actuation (Flovent HFA) 2 puffs inhalation BID hydroxyzine pamoate 1 cap PO BID ketoconazole 2% 1 appl topical DAILY levothyroxine 88 mcg PO DAILY loratadine 1 tab PO DAILY metformin 1 tab PO QAM metoprolol tartrate 25 mg PO BID montelukast (Singulair) 1 tab PO BEDTIME omeprazole 1 cap PO DAILY trazodone 50 mg PO BEDTIME zaleplon 10 mg PO BEDTIME PRN HPI Comments Details: 64-year-old female patient with a prior history of atypical lobular hyperplasia returning today for a high risk breast examination. She underwent a bilateral breast reduction in 2012 which was complicated by an open wound on the right side which developed soon after the surgery. She has subsequently diagnosed with atypical lobular hyperplasia. Was given prophylactic tamoxifen for 5 years. She returns today for a follow-up breast examination. She denies any ongoing breast symptoms but is concerned about a ingrown hair located in the left pubis which is causing pain for the past 3 days. She denies any bleeding or discharge from the site. She underwent a mammogram on 07/12/2024, the results of which are not available to time of this dictation. Her calculated [facility] remaining lifetime risk of breast cancer was calculated at 6.8%. Her family history is significant for a maternal aunt with breast cancer. PFSH Medical History Pulmonary nodules STEVEN (obstructive sleep apnea) Asthma with COPD Allergic rhinitis Osteoarthritis, hip, bilateral Frequency of urination Hernia Depression Anxiety Heart disease Diabetes Asthma Fibromyalgia Atypical lobular hyperplasia (ALH) of breast Surgical History Hx of cardiac cath H/O rectal polypectomy History of carpal tunnel surgery Hx of toe surgery Hx of right knee surgery Hx of tonsillectomy History of appendectomy Hx of cholecystectomy H/O: hysterectomy Hx of section Family History Brother Heart disease Asthma Mother Family history of esophageal cancer Hypertension Asthma Lung cancer Father History of prostate cancer Asthma Paternal Aunt No problems noted. Paternal Grandfather Liver cancer Colon cancer Family/Other Stomach cancer Maternal Aunt Breast cancer Social History Household Members: None Housing: Apartment Are you a primary direct care counselor to a significant other at home: No Do you presently have visiting nurse or other home services: No Alcohol intake: former Patient Tobacco Use Status: Never used Tobacco service: No Current occupational status: disabled Female Reproductive History Menstrual Age of Menarche: 15 Review of Systems Const All systems reviewed & are unremarkable except as noted in HPI and below Physical Exam Vital Signs: Last Vital Signs Pulse 99 07/12/24 11:10 BP 136/72 07/12/24 11:10 BMI result Body Mass Index 30.5 Const General: cooperative and no acute distress Nutritional Appearance: well nourished Orientation/consciousness: patient oriented x3 Limitations: no limitations HEENT Head: Yes normocephalic and Yes atraumatic Ears: hearing grossly normal bilaterally Chest Other: Bilateral breast reduction incisions noted, wounds are clean, dry and intact. Left breast: No skin change, no nipple retraction, no nipple discharge, no palpable mass, no enlarged lymph nodes. Right breast: No skin change, no nipple retraction, no nipple discharge, no palpable mass, no enlarged lymph nodes Resp Effort & Inspection: normal respiratory effort, no audible wheezes, no cough and no respiratory distress Cardio Jugular venous distension: no JVD GI Inspection: Yes normal to inspection Skin Other: Warm, dry, no rash Neuro General: patient oriented x3 Extrem General: Yes no clubbing, cyanosis or edema Assessment & Plan Assessment & Plan (1) Atypical lobular hyperplasia (ALH) of breast: Code(s): N60.99 - Unspecified benign mammary dysplasia of unspecified breast Category: Medical (2) At high risk for breast cancer: Code(s): Z91.89 - Other specified personal risk factors, not elsewhere classified Category: Medical Plan 64-year-old female returning for high risk breast examination. She has a prior history of atypical lobular hyperplasia diagnosed following bilateral breast reductions. Examination today revealed no suspicious findings in either side. Her most recent mammogram of 07/12/2024 has not been read at the time of this dictation. I recommended follow-up examination in 6 months, sooner p.r.n.. A skin cyst noted in the left pubis appears to be an ingrown hair with a small infection. I recommended starting Keflex 500 mg q.8 hours for 10 days. She should also continue with warm compresses to the site. Medications: New cephalexin 500 mg PO Q8H 30 caps 0RF 10 days Coding Level of Care Code Est Pt Level 3 (03172) Complex EM visit Add On G2211 Diagnoses Atypical lobular hyperplasia (ALH) of breast N60.99 At high risk for breast cancer Z91.89
[2024-07-12 11:10] VITALS: BP 136/72; PULSE 99; BMI 30.5
--- OUTSIDE RECORDS SUMMARY | 2024-07-12 12:12 | XMS_ITS | Encounter Summary ---
Author Organization [employer] [facility] Address [address] [place] [address] Care Team Providers Care Mortgage Accounting Clerk Name Role Phone Name, Edmund HERNANDEZ Primary Care Provider Unavailabl e Encounter Details Date Type Department Care Team Description 09/09/2014 Ferryboat Operator Helper Report Medical Records [address] [place] [address] Alexy Dalal PA-C Social History Tobacco Use Types Packs/Day [...] on filedocumented in this encounter Care Teams Mortgage Accounting Clerk Relationship Specialty Start Date End Date Name, MD Edmund PCP - General Internal Medicine 01/28/11 documented as of this encounter
--- OUTSIDE RECORDS SUMMARY | 2024-07-12 12:12 | XMS_ITS | Clinical Summary ---
Author Organization [facility] Address [address] [place] [address] Care Team Providers Care Boil Off Worker Name Role Phone Name, Edmund HERNANDEZ [...] 2 times daily as needed. 0 Active [id number] FFEINE 50-325-40 MG OR TABS (FIORICET) per [...] follows and the [facility] and is on Tamoxifen Fibromyalgia 02/05/2013 Umbilical hernia 07/16/2011 Impaired fasting glucose 01/28/2011 Lung nodule 01/08/2011 Overview: F/u recommended somewhere between 01/09 and 07/10 Breast microcalcification, mammographic 01/08/2011 Overview: Biopsied in [place] 07-07-2009, fibrocystic disease. Hypothyroidism 01/05/2011 IBS (irritable [...] is disabled because of this problem in [place] Immunizations Name Administration Dates Next Due Influenza [...] 03/15/2021 03/15/2011 COLON CANCER SCREENING 09/19/2022 09/19/2012 BMI CHECK/ADVISE 02/29/2024 01/20/2015, 07/2014, 07/17/2014, Additional history exists INFLUENZA (Season Ended) 2024 014, 11/06/2012, 12/08/2011, Additional history exists PNEUMOCOCCAL VACCINE FOR HIG H RISK PATIENTS (#2) 06/26/2027 07/24/2014 HEPATITIS C SCREENING Completed 10/12/2012 Care Teams Boil Off Worker Relationship Specialty Start Date End Date Name, MD Edmund PCP - General Internal Medicine 01/28/11
--- OUTSIDE RECORDS SUMMARY | 2024-07-12 12:12 | XMS_ITS | Encounter Summary ---
Author Organization [employer] Address 75 [facility] 7 [place] [address] Care Team Providers Care K 9 Handler/ Deputy Name Role Phone Name, Edmund HERNANDEZ Primary Care Provider [phone] Encounter Details Date Type Department Care Team (Late Contact Info) Description 05/12/2022 Orders Only [facility] CHC MED & PEDS [address] [place], [place] [phone] Sarah Sherwood LPN Social History Tobacco Use [...] Description 07/17/2024 10:00 AM EDT Office Visit [facility] MEDICINE [address] [place] [address] Name, MD Edmund [address] [place] [address] documented as of this encounter Procedures Procedure Name Priority Date/Time Associated Diagnosis Comments VASC US LOWER EXTREMITY VENOUS DUPLEX RIGHT Routine 06/11/2022 2:15 PM EDT XR CHEST 2 VIEWS Routine 05/19/2022 5:03 PM EDT documented in this encounter Results * Vascular US lower extremity venous duplex right (06/11/2022 2:15 PM EDT) 06/11/2022 2:15 PM EDT Narrative [facility] - 06/11/2022 3:03 PM EDT ? [facility] ?[address] ?[place] [address] ? Ultrasound Report ? Signed ? Patient: Pippa Camilo I ?MR#: [id number] ? : 1960 ?Acct:[id number] ? Age/Sex: 61 / F ?ADM Date: 06/11/22 ? Loc: HO.US ? Attending Dr: Uli Prakash MD ? Ordering Physician: ULI PRAKASH MD ?? Date of Service: 06/11/22 ?? Procedure(s): US venous duplex LE RT ?? Accession Number(s): [id number] ? cc: ULI PRAKASH MD ? EXAMINATION: [...] 1500 ? DD/ 1415 ? TD/TT: ? Survey Crew Chief: SK ? Procedure Note Donotuseinterpreter, Image - 06/11/2022 [place] [address] Ultrasound Report Signed Patient: Pippa Camilo IMR#: [id number] : 1960Acct:[id number] Age/Sex: 61 / FADM Date: 06/11/22 Loc: HO.US Attending Dr: Uli Prakash MD Ordering Physician: ULI PRAKASH MD Date of Service: 06/11/22 Procedure(s): US venous duplex LE RT Accession Number(s): [id number] cc: ULI PRAKASH MD EXAMINATION: US VENOUS [...] in OV> 06/11/22 1500 DD/ 1415 TD/TT: Survey Crew Chief: JOSE us [facility] External Provider CV VASC ULAR PROCEDURES Edited Result - Final [facility] [address] [place] [address] * XR Chest 2 Views (05/19/2022 5:03 PM EDT) Anatomical Region Laterality Modality Chest Radiographic Suzanne ging 05/19/2022 5:03 PM EDT Narrative 05/25/2022 1:42 PM EDT ? [facility] ?[address] ?[place], [place] [address] ?XRay Report ? Signed ? Patient: Renetta Colon,Pippa I ?MR#: [id number] ? : 1960 ?Acct:[id number] ? Age/Sex: 61 / F ?ADM Date: 05/19/22 ? Loc: HO.XRAY ? Attending Dr: Uli Prakash MD ? Ordering Physician: ULI PRAKASH MD ?? Date of Service: 05/19/22 ?? Procedure(s): XR chest 2V ?? Accession Number(s): [id number] ? cc: ULI PRAKASH MD ? EXAMINATION: [...] 1340 ? DD/ 1703 ? TD/TT: ? Survey Crew Chief: SERGIO ? Procedure Note Joanie, Image - 05/25/[address] [address] XRay Report Signed Patient: Pippa Camilo [facility]#: [id number] : 1960Acct:[id number] Age/Sex: 61 / FADM Date: 05/19/22 Loc: FEL[facility] Attending Dr: Uli Prakash MD Ordering Physician: ULI PRAKASH MD Date of Service: 05/19/22 Procedure(s): XR chest 2V Accession Number(s): [id number] cc: ULI PRAKASH MD EXAMINATION: XR CHEST [...] in OV> 05/25/22 1340 DD/ 1703 TD/TT: Survey Crew Chief: SERGIO [facility] External Provider IMG XR PROCEDURES Edited Result - Final documented in this encounter Visit Diagnoses Not on filedocumented in this encounter Care Teams K 9 Handler/ Deputy Relationship Specialty Start Date End Date Name, MD Edmund [address] [place] [address] PCP - General Family Medicine 04/04/15 documented as of this encounter
--- OUTSIDE RECORDS SUMMARY | 2024-07-12 12:12 | XMS_ITS | Encounter Summary ---
Author Organization [employer] Address 75 [facility] 7t [place] [address] Care Team Providers Care Market Research Analyst Name Role Phone Name, Edmund HERNANDEZ Primary Care Provider [phone] Reason for Visit * Reason Onset Date Comments mail appt slip 03/15/2024 Encounter Details Date Type Department Care Team ([facility] st Contact Info) Description 03/15/2024 Telephone [facility] ADULT DENTAL [address] [place] [address] Lillie Witt mail appt slip Social History [...] Description 07/17/2024 10:00 AM EDT Office Visit [facility] MEDICINE [address] [place] [address] Name, MD Edmund [address] [place] [address] documented as of this encounter Visit Diagnoses Not on filedocumented in this encounter Additional Health Concerns Assessment Noted Time PHQ-9 Depression Total Score: 0 07/29/19 24 9:26 AM EDT documented as of this encounter Care Teams Market Research Analyst Relationship Specialty Start Date End Date Name, MD Edmund [address] [place] [address] PCP - General Family Medicine 04/04/15 documented as of this encounter
--- OUTSIDE RECORDS SUMMARY | 2024-07-12 12:12 | XMS_ITS | Encounter Summary ---
Author Organization [facility] Address [address] [place] [address] Care Team Providers Care Commercial Intern Name Role Phone Name, Edmund HERNANDEZ Primary Care Provider Unavailabl e Encounter Details Date Type Department Care Team Description 11/04/2015 Business Doc Medical Records [address] [place] [address] Abstract, Provider Social History Tobacco Use Types [...] on filedocumented in this encounter Care Teams Commercial Intern Relationship Specialty Start Date End Date Name, MD Edmund PCP - General Internal Medicine 01/28/11 documented as of this encounter
--- OUTSIDE RECORDS SUMMARY | 2024-07-12 12:12 | XMS_ITS | Encounter Summary ---
Author Organization [facility] Address [address] [place] [address] Care Team Providers Care Financial Controller Name Role Phone Name, Edmund HERNANDEZ Primary Care Provider Unavailabl e Encounter Details Date Type Department Care Team Description 07/26/2014 Business Doc Medical Records [address] [place] [address] Abstract, Provider Social History Tobacco Use Types [...] on filedocumented in this encounter Care Teams Financial Controller Relationship Specialty Start Date End Date Name, MD Edmund PCP - General Internal Medicine 01/28/11 documented as of this encounter
--- OUTSIDE RECORDS SUMMARY | 2024-07-12 12:12 | XMS_ITS | Encounter Summary ---
Author Organization [employer] [facility] Address [address] [place] [address] Care Team Providers Care Ultrasonic Cleaner Name Role Phone Name, Edmund HERNANDEZ Primary Care Provider Unavailabl e Encounter Details Date Type Department Care Team Description 09/20/2014 Hospital Medical Records [address] [place] [address] Karsten Christian MD [address] [place] [address] Social History Tobacco Use Types Packs/Day Years [...] on filedocumented in this encounter Care Teams Ultrasonic Cleaner Relationship Specialty Start Date End Date Name, MD Edmund PCP - General Internal Medicine 01/28/11 documented as of this encounter
--- OUTSIDE RECORDS SUMMARY | 2024-07-12 12:12 | XMS_ITS | Encounter Summary ---
Author Organization [employer] [facility] Address [address] [place] [address] Care Team Providers Care Merit System Director Name Role Phone Community, Pcp Primary Care Provider Unavailjose e Edmund Valentino MD Primary Care Provider Unavailjose e Encounter Details Date Type Department Care Team Description 01/11/2011 Transfer Records Medical Records [address] [place] [address] Abstract, Provider Social History Tobacco Use Types [...] on filedocumented in this encounter Care Teams Merit System Director Relationship Specialty Start Date End Date Community, Pcp PCP - General Internal Medicine 01/05/11 01/27/11 Edmund Valentino MD PCP - General Internal Medicine 01/28/11 documented as of this encounter
--- OUTSIDE RECORDS SUMMARY | 2024-07-12 12:12 | XMS_ITS | Encounter Summary ---
Author Organization [employer] [facility] Address [address] [place] [address] Care Team Providers Care Coding Compliance Auditor Name Role Phone Community, Pcp Primary Care Provider Unavailjose e Edmund Valentino MD Primary Care Provider Unavailjose e Encounter Details Date Type Department Care Team Description 01/07/2011 Release of Information Medical Records [address] [place] [address] Abstract, Provider Social History Tobacco Use Types [...] on filedocumented in this encounter Care Teams Coding Compliance Auditor Relationship Specialty Start Date End Date Community, Pcp PCP - General Internal Medicine 01/05/11 01/27/11 Edmund Valentino MD PCP - General Internal Medicine 01/28/11 documented as of this encounter
--- OUTSIDE RECORDS SUMMARY | 2024-07-12 12:12 | XMS_ITS | Encounter Summary ---
Author Organization [employer] [facility] Address [address] [place] [address] Care Team Providers Care Check Writer Name Role Phone Name, Edmund HERNANDEZ Primary Care Provider Unavailabl e Encounter Details Date Type Department Care Team Description 11/06/2014 Controlled Substance Contract with Plan Medical Records [address] [place] [address] Abstract, Provider Social History Tobacco Use Types [...] on filedocumented in this encounter Care Teams Check Writer Relationship Specialty Start Date End Date Name, MD Edmund PCP - General Internal Medicine 01/28/11 documented as of this encounter
--- OUTSIDE RECORDS SUMMARY | 2024-07-12 12:12 | XMS_ITS | Encounter Summary ---
Author Organization [employer] [facility] Address [address] [place] [address] Care Team Providers Care Respite Coordinator Name Role Phone Name, Edmund HERNANDEZ Primary Care Provider Unavailabl e Encounter Details Date Type Department Care Team Description 03/16/2011 Business Doc Medical Records [address] [place] [address] Abstract, Provider Social History Tobacco Use Types [...] on filedocumented in this encounter Care Teams Respite Coordinator Relationship Specialty Start Date End Date Name, MD Edmund PCP - General Internal Medicine 01/28/11 documented as of this encounter
--- OUTSIDE RECORDS SUMMARY | 2024-07-12 12:12 | XMS_ITS | Encounter Summary ---
Author Organization [employer] Address [address] [facility] 7t [place] [address] Care Team Providers Care Hat Cleaner Name Role Phone Name, Edmund HERNANDEZ Primary Care Provider [phone] Reason for Visit * Reason Comments Med Refill Encounter Details Date Type Department Care Team ([facility] st Contact Info) Description 02/10/2024 Refill [facility] CHC MED & PEDS [address] [place], [place] [phone] Name, MD Edmund [address] [place] [address] Social History Tobacco Use Types Packs/Day Years [...] EDT Office Visit [facility] MEDICINE [address] [place] [address] Name, MD Edmund [address] [place] [address] documented as of this encounter Visit Diagnoses Not on filedocumented in this encounter Additional Health Concerns Assessment Noted Time PHQ-9 Depression Total Score: 0 07/29/19 24 9:26 AM EDT documented as of this encounter Care Teams Hat Cleaner Relationship Specialty Start Date End Date Name, MD Edmund [address] [place] [address] PCP - General Family Medicine 04/04/15 documented as of this encounter
--- OUTSIDE RECORDS SUMMARY | 2024-07-12 12:12 | XMS_ITS | Encounter Summary ---
Author Organization [employer] Address [address] [facility] 7t [place] [address] Care Team Providers Care Mechanical Design Engineer Products Name Role Phone Name, Edmund HERNANDEZ Primary Care Provider [phone] Reason for Visit * Reason Comments Med Refill Encounter Details Date Type Department Care Team ([facility] st Contact Info) Description 01/20/2024 Refill [facility] MEDICINE [address] [place], [place] [phone] Name, MD Edmund [address] [place] [address] Social History Tobacco Use Types Packs/Day Years [...] EDT Office Visit [facility] MEDICINE [address] [place] [address] Name, MD Edmund [address] [place] [address] documented as of this encounter Visit Diagnoses Not on filedocumented in this encounter Additional Health Concerns Assessment Noted Time PHQ-9 Depression Total Score: 0 07/29/19 24 9:26 AM EDT documented as of this encounter Care Teams Mechanical Design Engineer Products Relationship Specialty Start Date End Date Name, MD Edmund [address] [place] [address] PCP - General Family Medicine 04/04/15 documented as of this encounter
--- OUTSIDE RECORDS SUMMARY | 2024-07-12 12:12 | XMS_ITS | Encounter Summary ---
Author Organization [facility] Address [address] [place] [address] Care Team Providers Care Land Resource Specialist Name Role Phone Name, Edmund HERNANDEZ Primary Care Provider Unavailabl e Encounter Details Date Type Department Care Team Description 12/04/2014 Business Doc Medical Records [address] [place] [address] Abstract, Provider Social History Tobacco Use Types [...] on filedocumented in this encounter Care Teams Land Resource Specialist Relationship Specialty Start Date End Date Name, MD Edmund PCP - General Internal Medicine 01/28/11 documented as of this encounter
--- OUTSIDE RECORDS SUMMARY | 2024-07-12 12:12 | XMS_ITS | Encounter Summary ---
Author Organization [employer] [facility] Address [address] [place] [address] Care Team Providers Care Lead Project Engineer Name Role Phone Name, Edmund HERNANDEZ Primary Care Provider Unavailabl e Encounter Details Date Type Department Care Team Description 11/15/2012 Business Doc Medical Records [address] [place] [address] Abstract, Provider Social History Tobacco Use Types [...] on filedocumented in this encounter Care Teams Lead Project Engineer Relationship Specialty Start Date End Date Name, MD Edmund PCP - General Internal Medicine 01/28/11 documented as of this encounter
--- OUTSIDE RECORDS SUMMARY | 2024-07-12 12:12 | XMS_ITS | Encounter Summary ---
Author Organization [employer] Address [address] [place] [address] Care Team Providers Care Spindle Sander Name Role Phone Name, Edmund HERNANDEZ Primary Care Provider Unavailabl e Encounter Details Date Type Department Care Team Description 01/31/2012 Mixer Lever Operator Report Medical Records [address] [place] [address] Ni Rolle Social History Tobacco Use Types [...] on filedocumented in this encounter Care Teams Spindle Sander Relationship Specialty Start Date End Date Name, MD Edmund PCP - General Internal Medicine 01/28/11 documented as of this encounter
--- OUTSIDE RECORDS SUMMARY | 2024-07-12 12:12 | XMS_ITS | Encounter Summary ---
Author Organization [facility] Address [address] [place] [address] Care Team Providers Care Mechanical Apprentice Name Role Phone Name, Edmund HERNANDEZ Primary Care Provider Unavailabl e Encounter Details Date Type Department Care Team Description 10/14/2011 Release of Information Medical Records [address] [place] [address] Abstract, Provider Social History Tobacco Use Types [...] on filedocumented in this encounter Care Teams Mechanical Apprentice Relationship Specialty Start Date End Date Name, MD Edmund PCP - General Internal Medicine 01/28/11 documented as of this encounter
--- OUTSIDE RECORDS SUMMARY | 2024-07-12 12:12 | XMS_ITS | Encounter Summary ---
Author Organization [facility] Address [address] [place] [address] Care Team Providers Care Table Hand Name Role Phone Name, Edmund HERNANDEZ Primary Care Provider Unavailabl e Encounter Details Date Type Department Care Team Description 06/02/2015 Release of Information Medical Records [address] [place] [address] Abstract, Provider Social History Tobacco Use Types [...] on filedocumented in this encounter Care Teams Table Hand Relationship Specialty Start Date End Date Name, MD Edmund PCP - General Internal Medicine 01/28/11 documented as of this encounter
--- OUTSIDE RECORDS SUMMARY | 2024-07-12 12:12 | XMS_ITS | Encounter Summary ---
Author Organization [employer] [facility] Address [address] [place] [address] Care Team Providers Care Pre School Manager Name Role Phone Name, Edmund HERNANDEZ Primary Care Provider Unavailabl e Encounter Details Date Type Department Care Team Description 03/05/2011 Printed Circuit Boards Inspector Report Medical Records [address] [place] [address] Sherie Guerrero NP Social History Tobacco Use [...] on filedocumented in this encounter Care Teams Pre School Manager Relationship Specialty Start Date End Date Name, MD Edmund PCP - General Internal Medicine 01/28/11 documented as of this encounter
--- OUTSIDE RECORDS SUMMARY | 2024-07-12 12:12 | XMS_ITS | Encounter Summary ---
Author Organization [employer] Address [address] [facility] 7t [place] [address] Care Team Providers Care Shovel Oiler Name Role Phone Name, Edmund HERNANDEZ Primary Care Provider Reason for Visit * Reason Comments Med Refill Encounter Details Date Type Department Care Team ([facility] st Contact Info) Description 01/27/2024 Refill [facility] MEDICINE [address] [place], [place] [phone] Beth Blanco, SALVATORE [address] [place] [address] Social History Tobacco Use Types Packs/Day Years [...] Office Visit [facility] MEDICINE [address] [place] [address] Name, MD Edmund [address] [place] [address] documented as of this encounter Visit Diagnoses Not on filedocumented in this encounter Additional Health Concerns Assessment Noted Time PHQ-9 Depression Total Score: 0 07/29/19 24 9:26 AM EDT documented as of this encounter Care Teams Shovel Oiler Relationship Specialty Start Date End Date Name, MD Edmund [address] [place] [address] PCP - General Family Medicine 04/04/15 documented as of this encounter
--- OUTSIDE RECORDS SUMMARY | 2024-07-12 12:12 | XMS_ITS | Encounter Summary ---
Author Organization [employer] [facility] Address [address] [place] [address] Care Team Providers Care Horticulture Instructor Name Role Phone Name, Edmund HERNANDEZ Primary Care Provider Unavailabl e Encounter Details Date Type Department Care Team Description 10/14/2011 Brass Plater Report Medical Records [address] [place] [address] Karsten Beach PA-C Social History Tobacco Use [...] on filedocumented in this encounter Care Teams Horticulture Instructor Relationship Specialty Start Date End Date Name, MD Edmund PCP - General Internal Medicine 01/28/11 documented as of this encounter
--- OUTSIDE RECORDS SUMMARY | 2024-07-12 12:12 | XMS_ITS | Encounter Summary ---
Author Organization [facility] [facility] Address [address] [place] [address] Care Team Providers Care Clinical Informatics Specialist Name Role Phone Name, Edmund HERNANDEZ Primary Care Provider Unavailabl e Encounter Details Date Type Department Care Team Description 05/14/2013 Seo Expert Report Medical Records [address] [place] [address] Karsten Kohli MD Social History Tobacco Use [...] filedocumented in this encounter Care Teams Clinical Informatics Specialist Relationship Specialty Start Date End Date Name, MD Edmund PCP - General Internal Medicine 01/28/11 documented as of this encounter
--- OUTSIDE RECORDS SUMMARY | 2024-07-12 12:12 | XMS_ITS | Encounter Summary ---
Author Organization [facility] Address [address] [place] [address] Care Team Providers Care Core Winder Machine Operator Name Role Phone Name, Edmund HERNANDEZ Primary Care Provider Unavailabl e Reason for Visit * Reason Onset Date Comments Call From Pharmacy 10/26/2012 Encounter Details Date Type Department Care Team Description 10/26/2012 Telephone Physiatry - [facility] [address] [place] [address] Renetta Lockhart PA-C Call From Pharmacy Social [...] filedocumented in this encounter Care Teams Core Winder Machine Operator Relationship Specialty Start Date End Date Name, MD Edmund PCP - General Internal Medicine 01/28/11 documented as of this encounter
--- OUTSIDE RECORDS SUMMARY | 2024-07-12 12:12 | XMS_ITS | Encounter Summary ---
Author Organization [employer] [facility] Address [address] [place] [address] Care Team Providers Care Director Biomedical Engineering Name Role Phone Name, Edmund HERNANDEZ Primary Care Provider Unavailabl e Encounter Details Date Type Department Care Team Description 11/12/2016 Business Doc Medical Records [address] [place] [address] Abstract, Provider Social History Tobacco Use Types [...] filedocumented in this encounter Care Teams Director Biomedical Engineering Relationship Specialty Start Date End Date Name, MD Edmund PCP - General Internal Medicine 01/28/11 documented as of this encounter
--- OUTSIDE RECORDS SUMMARY | 2024-07-12 12:12 | XMS_ITS | Clinical Summary ---
Author Organization [employer] Address [address] [facility] 7 [place] [address] Care Team Providers Care Hide Shaker Name Role Phone Name, Edmund HERNANDEZ Primary Care Provider [phone] Allergies Active Allergy Reactions Criticality Noted Date Comments Alprazolam Nausea And Vomiting,Other,Swell ing 03/06/2008 Patient describes that she had a withdrawal from this medication causing extreme anxiety and dificulty breathin. She denies an actual allergy to this medicine Aspirin Nausea And Vomiting,Swelling High 03/06/2008 Other reaction(s): OTHER LegacyRecord#[id number] Throat closing Green Dye High 11/15/2018 IV DYE Iodinated Contrast Media Nausea And Vomiting,Swelling 03/06/2008 Other reaction(s): arm swelling Other reaction(s): OTHER Throat closing Iodine High 04/04/2015 LegacyRecord#[id number] Tuberculin Ppd High 11/15/2018 Tuberculin Purified Protein Derivative 08/20/2022 Other reaction(s): ?reaction Tuberculin, Ppd 01/09/2013 LegacyRecord#[id number] Medications fluticasone (Flonase) 50 MCG/ACT nasal sprayIndication [...] day. 30 capsule 2 Active glucose blood (AeropostaleTouch Verio) test stripIndication s:Type 2 diabetes mellitus without complication, without long-term current use of insulin ([facility]) USE TO TEST BLOOD SUGAR ONCE A DAY 100 strip 11 024 Active hydrocortisone 2.5 % ointmentIndicat ions:Fissure in skin Apply topically 2 times daily. 20 g 024 Active Dulaglutide (Trulicity) 0.75 MG/0.5ML solution auto-injectorIn dications:Type 2 diabetes mellitus without complication, without long-term current use of insulin (CMS/[facility]) Inject 0.5 mL (0.75 mg) under the skin 1 (one) time per week. INJECT 0.5 ML SUBCUTANEOUSLY EVERY WEEK. 2 mL Active OneTouch Delica Lancets 33G misc USE [...] Once per day. 90 tablet 1 Active Ventolin HFA 108 (90 Base) MCG/ACT [...] NECESARIO 18 g 2 025 2024 Discontinued acetaminophen (Tylenol Extra Strength) 500 MG tablet Take 1 tablet (500 mg) by mouth every 6 (six) hours if needed for mild pain. 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 Assessment & Plan (2023 3:54 PM EDT): In close care with oncology, utd on mammogram Hypertrophic condition of skin 10/26/2018 Overview (08/20/2022): Overview Note: Hypertrophic disorders of skin #[id number]# EXT_ID: [id number] 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 Overview (08/20/2022): Overview Note: Monoarthritis, not elsewhere classified, knee #2289411# EXT_ID: [id number] Assessment & Plan (2023 4:01 PM EDT): Trial tramadol, Medication Indications, side effects and duration of therapy reviewed, pt aware to call clinic for worsening symptoms or failure to resolve Dry eye syndrome 10/04/2018 Overview (08/20/2022): Overview Note: Dry eye syndrome #[id number]# EXT_ID: [id number] Pain in knee 10/04/2018 Overview (08/20/2022): Overview Note: Pain in knee #[id number]# EXT_ID: [id number] Intraductal carcinoma in situ of breast 08/04/19 Overview (08/20/2022): Overview Note: Intraductal carcinoma in situ of breast #1687011# EXT_ID: [id number] Benign mammary dysplasia 08/01/2018 Overview (08/20/2022): Overview Note: Other benign mammary dysplasias #8112685# EXT_ID: [id number] Mild persistent asthma 07/27/2018 Overview (08/20/2022): Overview Note: Mild intermittent asthma #4148523# EXT_ID: [id number] Assessment & Plan (06/13/2023 2:10 PM EDT): Stable mild intermittent, seasonal allergies are triggers, Anxiety disorder 07/27/2018 Overview (08/20/2022): The patient follows with Dr Taylor Overview Note: Other anxiety disorders #1392319# EXT_ID: [id number] Assessment & Plan (2023 3:55 PM EDT): Reports stable and well managed, continue current regimen Hypertension 07/27/2018 Overview (06/13/2023): At goal today, continue amlodipine and metoprolol, consider josefa or arb given concurrent dm, defer to pcp Joint pain 11/08/2017 Diabetes mellitus, type 2 05/21/2016 Overview (08/20/2022): Overview Note: Type 2 diabetes mellitus #3644314# EXT_ID: [id number] Allergic rhinitis 05/21/2016 Assessment & Plan (2023 [...] Overview (08/20/2022): Overview Note: Carpal tunnel syndrome #2658905# EXT_ID: [id number] Atypical lobular hyperplasia (ALH) of breast Overview (08/20/2022): Patient followed and the [facility] and with Dr Avina. She was on Tamoxigen for 5 years Umbilical hernia 07/16/2011 Impaired fasting glucose 01/28/2011 Breast microcalcification, mammographic 01/09/20 11 Overview (08/20/2022): Biopsied in [place] 07-07-2009, fibrocystic disease. Acquired hypothyroidism 01/05/2011 Overview (08/20/2022): Overview Note: Other hypothyroidism #6046853# EXT_ID: [id number] Assessment & Plan (06/28/2023 11:56 AM EDT): [...] 12/08/2018 12/06/2023 Overview (08/20/2022): Overview Note: Cough #9347125# EXT_ID: [id number] Major depressive disorder, recurrent 10/26/2018 06/29/2023 Overview (04/06/2022): Overview Note: Major depressive disorder, recurrent #8494497# EXT_ID: [id number] Lung mass 01/08/2011 2023 Overview (08/20/2022): F/u recommended somewhere between 01/09 and 07/10 Abdominal pain 03/06/2008 12/06/2023 Overview (08/20/2022): Overview Note: Dorsalgia #8128212# EXT_ID: [id number] Cervical spine disc herniation Overview Note: Other abdominal pain #6688731# EXT_ID: [id number] Asthma 03/06/2008 12/06/2023 Assessment & Plan (07/30/2023 4:20 PM EDT): Recent exacerbation, no audible wheeze today, continue inhalers Assessment & Plan (2023 4:09 PM EDT): Continue current inhalers, seasonal allergies are trigger, monitor for increased albuterol usage Encounters Date Type Department Care Team Description 07/03/2024 Telephone [facility] MEDICINE [address] [place] [address] Edmund Valentino MD Medication Question; Med Refill 06/29/2024 Refill [facility] MEDICINE [address] [place] [address] Edmund Valentino MD Mild intermittent asthma, unspecified whether complicated 06/11/2024 11:20 AM EDT Office Visit [facility] WALK-IN CENTER [address] [place] [address] Freda Mauricio MD Subacute pansinusitis (Primary Dx); Body aches; Allergic rhinitis, unspecified seasonality, unspecified trigger 06/11/2024 Travel 05/16/2024 2:00 PM EDT Office Visit [facility] WALK[facility]IN [facility] [address] [place] [address] Shona Blandon NP Dysphagia, unspecified type (Primary Dx); Cough in adult patient; Persistent cough; Hoarseness of voice; Lymphadenopathy of left cervical region 05/11/2024 1:20 PM EDT Office Visit [facility] WALKIN CENTER [address] [place] [address] Yaa Daly MD History of strep pharyngitis (Primary Dx); Mild intermittent asthma, unspecified whether complicated; Neck pain on left side 05/11/2024 Travel 04/19/2024 10:45 AM EST Office Visit [facility] MEDICINE [address] [place] [address] Alyssa Sandra MD Chronic bilateral low back pain with left-sided sciatica (Primary Dx) 04/19/2024 9:45 AM EST Office Visit [facility] MEDICINE [address] [place] [address] Name, MD Edmund Type 2 diabetes mellitus without complication, without long-term current use of insulin ([facility]) (Primary Dx); Acquired hypothyroidism; Strep throat from Last 3 Months Immunizations Immunization Administration Dates Next Due Influenza Injectable Quadriv [...] is your housing situation today? I have raon toney 05/09/[address] you [...] 10:00 AM EDT Office Visit [facility] MEDICINE [address] [place] [address] Name, MD Edmund [address] [place] [address] Health Maintenance Due Date Last Done Comments [...] complication, without long-term current use of insulin ([facility]) ALBUMIN, RANDOM URINE W/CREATININE Routine 12/06/2023 10:00 AM EDT Type 2 diabetes mellitus without complication, without long-term current use of insulin ([facility]) POCT GLYCATED HEMOGLOBIN, TOTAL Routine 12/06/2023 9:03 AM EDT Type 2 diabetes mellitus without complication, without long-term current use of insulin ([facility]) BI MAMMOGRAM SCREENING TOMOSYNTHESIS BILATERAL Routine 07/05/2023 1:55 PM EDT LIPID PANEL, STANDARD Routine 06/07/2023 11:34 AM EDT Type 2 diabetes mellitus without complication, without long-term current use of insulin ([facility]) DIABETES EYE EXAM Routine 03/29/2023 [...] is included. Influenza B Negative Negative, Indeterminate [facility] QC Media Lot # [id number] [facility] Lot# Expiration Date [id number] [facility] Swab 06/11/2024 11:4 4 AM EDT Freda Mauricio MD POINT OF CARE TEST ENTER /EDIT ORDERABLES Final Result Performing Organization Address [facility] Co de Phone Number [facility] [address] [place] [address] [phone] * POCT Rapid Influenza A HUMPHREY ID NOW (06/11/2024 11:44 AM EDT) Only the most recent of3 resultswithin the time period is included. Influenza A Negative Negative, Indeterminate [facility] QC Media Lot # [id number] [facility] Lot# Expiration Date [id number] [facility] Swab 06/11/2024 11:4 4 AM EDT Freda Mauriico MD POINT OF CARE TEST ENTER /EDIT ORDERABLES Final Result Performing Organization Address [facility] Co de Phone Number [facility] [address] [place] [address] [phone] * POCT Rapid Covid-19 BinaxNOW (06/11/2024 11:38 AM EDT) Only the most recent of2 resultswithin the time period is included. Rapid COVID Ag Negative QC Media Lot # [id number] Lot# Expiration Date [id number] Swab 06/11/2024 11:3 8 AM EDT Freda Mauricio MD POINT OF CARE TEST ENTER /EDIT ORDERABLES Final Result * XR Chest 2 Views (05/17/2024 11:56 AM EDT) Anatomical Region Laterality Modality Chest Radiographic Suzanne ging 05/17/2024 11:5 6 AM EDT Narrative 05/17/2024 12:27 PM EDT ?[facility] ?[address] ?[place] [address] ?XRay Report ? Signed ? Patient: Renetta Colon,Pippa I ?MR#: [id number] ?? [id number] ? : 1960 ?Acct:[id number] ? Age/Sex: 63 / F ?ADM Date: 03/20/25 ? Loc: HO.HHCX ? Attending Dr: Shona Blandon ? Ordering Physician: Shona Blandon ?? Date of Service: 05/17/24 ?? Procedure(s): XR chest 2V ?? Accession Number(s): [id number] ? cc: Shona Blandon ? EXAMINATION: ??XR [...] DD/ 1156 ? TD/TT: 05/17/24 1206 ? Research Coordinator: ? Procedure Note Perfecto Nair - 05/17/2024 [place] [address] XRay Report Signed Patient: Pippa Camilo [facility]#: [id number] : 1960Acct:[id number] Age/Sex: 63 / FADM Date: 05/17/24 Loc: HO.HHCX Attending Dr: Shona Blandon Ordering Physician: Shona Blandon Date of Service: 05/17/24 Procedure(s): XR chest 2V Accession Number(s): [id number] cc: Shona Blandon EXAMINATION: XR CHEST 2 [...] 05/17/24 1224 DD/ 1156 TD/TT: 05/17/24 1206 Research Coordinator: [facility] BATON TEACHER IMG XR PROCEDURES Final Result * POCT COVID-19 Ag Humphrey ID NOW (05/16/2024 2:10 PM EDT) [facility] Coronavirus Antigen PCR Negative Negative, Indeterminate, None Detected, Invalid, Specimen unsatisfactory for evaluation, Weakly Positive Swab 05/16/2024 2:10 PM EDT [facility] POINT OF CARE TEST ENTER/EDIT O RDERABLES Final Result * POCT rapid strep A manually resulted (05/16/2024 2:10 PM EDT) Only the most recent of2 resultswithin the time period is included. [facility] Rapid Strep A Screen Negative Negative, None Detected Swab 05/16/2024 2:10 PM EDT [facility] POINT OF CARE TEST ENTER/EDIT O RDERABLES Final Result * T-SPOT??.TB (05/11/2024 2:13 PM EDT) Only the most recent of2 resultswithin the time period is included. [facility] T Spot TB Negative Negative [facility] Comment:A negative test resu lt [...] as aquantitative test. TS PANEL A 0 [facility] TS PANEL B 0 [facility] Negative Control Passed [facility] Positive Control Passed [facility] Comment:For additional infor micheal, please refer tohttp://education.[employer]/faq/OPP450(This link is being provided for informational/educational purposes only.)THIS TEST WAS PERFORMED AT:[employer] [id number] [place] [id number] W. MASON,MD,PHD 05/11/2024 2:13 PM EDT 05/11/2024 4:20 PM EDT Edmund Valentino MD LAB BLOOD ORDERABLES Final Resul t [facility] [address] [place] [phone] * (ABNORMAL) Basic Metabolic Panel (05/11/2024 2:13 PM EDT) Sodium 142 135 - 145 mmol/L [facility] Potassium 3.7 3.3 - 5.1 mmol/L [facility] Chloride 104 96 - 108 mmol/L [facility] Carbon Dioxide 30(H) 22 - 29 mmol/L [facility] Anion Gap 12 12 - 20 [facility] Urea Nitrogen (BUN) 17(H) 9 - 16 mg/dL [facility] Creatinine, Serum 0.74 0.5 - 1.4 mg/dL [facility] Estimated Glomerular Filt Rate >60 [facility] Comment:Chronic Kidney Disea se: Estimated GFR < 60 mL/min/1.87f8Wzjtgp Kidney Disease: Estimated GFR < 15 mL/min/1.73m2 Glucose 110 60 - 115 mg/dL [facility] Calcium 10.4(H) 8.4 - 10.2 mg/dL [facility] Blood Venous blood specimen / Unknown 05/11/2024 2:13 PM EDT 05/11/2024 4:20 PM EDT Yaa Daly MD LAB BLOOD ORDERABLES Final Re sult Performing Organization Address City/[facility]/ZIP Co de Phone Number [facility] [address] [place] [phone] * TSH W/Reflex to FT4 (04/19/2024 10:25 AM EST) TSH reflex Free T4 2.19 0.32 - 4.0 uIU/mL [facility] Blood Venous blood specimen / Unknown 04/19/2024 10:25 AM EST 04/19/2024 11:36 AM EST Edmund Valentino MD LAB BLOOD ORDERABLES Final Resul t Performing Organization Address [facility]/ZIP Co de Phone Number [facility] [address] [place] [phone] * POCT Glucose (04/19/2024 9:55 AM EST) Glucose Blood, POC 129 60 - 200 mg/dL QC Media Lot # [id number] Lot# Expiration Date Blood Capillary blood specimen / Unknown 04/19/2024 9:55 AM EST us Edmund Valentino MD POINT OF CARE TEST ENTER/EDIT OR DERABLES Final Result * Albumin, Random Urine W/Creatinine (12/06/2023 10:00 AM EDT) Creatinine, Urine 123.16 mg/dL [facility] Microalbumin Urine 11.0 mg/L [facility] Microalbum Creatinine Ratio Ur 8.9 <30 ug/mg cr [facility] Comment:Albumin/Creatinine R atio Reference Ranges: Normal: < 30 ug/mg creatinine Microalbuminuria: 30 - 300 ug/mg creatinineClinical Albuminuria: > 300 ug/mg creatinine Urine (Urine, Random) 12/06/2023 10:00 AM EDT 12/06/2023 11:23 AM EDT us Edmund Valentino MD LAB URINE ORDERABLES Final Resul t [facility] [address] [place] [phone] * (ABNORMAL) POCT HGB A1C (12/06/2023 9:03 AM EDT) Hemoglobin A1C 6.6(A) 4.0 - 6.0 % QC Media Lot # [id number] Lot# Expiration Date [id number] Blood 12/06/2023 9:03 AM EDT us Edmund Valentino MD POINT OF CARE TEST ENTER/EDIT OR DERABLES Final Result * BI Mammogram Screening Tomosynthesis Bilateral (07/05/2023 1:55 PM EDT) Anatomical Region Laterality Modality Breast Bilateral Mammography 07/05/2023 1:55 PM EDT Narrative 08/04/2023 1:26 PM EDT ? [facility] ? [address] ?[place] [address] ? Mammography Report ? Signed ? Patient: Renetta Colon,Pippa I ?MR#: [id number] ?? [id number] ? : 1960 ?Acct:[id number] ? Age/Sex: 63 / F ?ADM Date: 05/07/24 ? Loc: HO.MAMMO ? Attending Dr: Tank Avina MD ? Ordering Physician: Tank Avina MD ?Results: 2Benig ?? n Findings ? Date of Service: 07/05/23 ?Follow Up: 1 Year From Orig ?? inal Mammogram ? Procedure(s): MM tomosynthesis screening BI ?? Accession Number(s): [id number] ? cc: Tank Avina MD; Name,Edmund HERNANDEZ [...] 1323 ? DD/ 1355 ? TD/TT: ? Research Coordinator: ? Procedure Note Joanie, Image - 08/04/2023 Candida [facility] [address] [place] [address] Mammography Report Signed Patient: Pippa Camilo IMR#: [id number] : 1960Acct:[id number] Age/Sex: 63 / FADM Date: 07/05/23 Loc: HO.MAMMO Attending Dr: Tank Avina MD Ordering Physician: Tank Avina MDResults: 2Benig n Findings Date of Service: 07/05/23Follow Up: 1 Year From Orig inal Mammogram Procedure(s): MM tomosynthesis screening BI Accession Number(s): [id number] cc: Tank Avina MD; Name,Edmund HERNANDEZ EXAMINATION: [...] in OV> 08/04/23 1323 DD/ 1355 TD/TT: Research Coordinator: [facility] External Provider IMG BI PROCEDURES Final Result * (ABNORMAL) Lipid Panel, Standard (06/07/2023 11:34 AM EDT) Triglycerides 125 <150 mg/dL [facility] Comment:Desirable Triglyceri de: less than 150 mg/dLBorderline High Triglyceride 150-199 mg/dLHigh Triglyceride: 200-499 mg/dLVery High Triglyceride: greater than or equal to 5OO mg/dL Cholesterol 225(H) <200 mg/dL [facility] Comment:Desirable Cholestero l: less than 200 mg/dLBorderline High Cholesterol: 200-239 mg/dLHigh Cholesterol: greater than 239 mg/dL LDL Cholesterol Calculated 141(H) <100 mg/dL [facility] Comment:Desirable LDL: less than 100 mg/dLNear Optimal/Above Optimal LDL: 110- 129 mg/dLBorderline High LDL: 130-159 mg/dLHigh LDL: 160-189 mg/dLVery High LDL: greater than or equal to 190 mg/dL HDL Cholesterol 59 >40 mg/dL [facility] Comment:Desirable HDL: great er than 40 mg/dL Note: This HDL assay may give artificially low results in patients with liver disease. Blood Venous blood specimen / Unknown 06/07/2023 11:34 AM EDT 06/07/2023 1:12 PM EDT Beth Graef BATON TEACHER LAB BLOOD ORDERABLES Final Resul t [facility] [address] [place] [address] [phone] * Diabetes Eye Exam (03/29/2023) Eye Exam Normal Normal 03/29/2023 us Edmund Name HEALTH MAINTENANCE Final Result * Colonoscopy (05/06/2021) Colonoscopy Normal Normal Narrative Rita Jimenez - 05/06/2021 Recommended 5 year follow up Historical Provider HEALTH MAINTENANCE Final Result from Last 3 Months or Most Recently Relevant to Health Maintenance Insurance [facility]ENTAL [facility] < 65 DENTAL - [facility] Care Teams Hide Shaker Relationship Specialty Start Date End Date Name, MD Edmund [address] [place] [phone] PCP - General Family Medicine 04/04/15
--- OUTSIDE RECORDS SUMMARY | 2024-07-12 12:12 | XMS_ITS | Encounter Summary ---
Author Organization [employer] [facility] Address [address] [place] [address] 7 [place] [address] Care Team Providers Care Fretted Instrument Maker Hand Name Role Phone Name, Edmund HERNANDEZ Primary Care Provider [phone] Encounter Details Date Type Department Care Team (Latest Contact Info) Description 08/26/2020 Abstract [facility] CONVERSIONS Dental, Provider, DDS Social [...] 07/17/2024 10:00 AM EDT Office Visit [facility] MEDICINE [address] [place] [address] Edmund Valentino MD [address] [place] [address] documented as of this encounter Visit Diagnoses Not on filedocumented in this encounter Care Teams Fretted Instrument Maker Hand Relationship Specialty Start Date End Date Edmund Valentino MD [address] [place] [address] PCP - General Family Medicine 04/04/15 documented as of this encounter
--- OUTSIDE RECORDS SUMMARY | 2024-07-12 12:12 | XMS_ITS | Encounter Summary ---
Author Organization [employer] [facility] Address [address] [place] [address] Care Team Providers Care Trading Floor Operator Name Role Phone Name, Edmund HERNANDEZ Primary Care Provider Unavailabl e Encounter Details Date Type Department Care Team Description 04/01/2011 Automobile Appraiser Report Medical Records [address] [place] [phone] Carlos Enrique Leggett MD, MD Social History [...] on filedocumented in this encounter Care Teams Trading Floor Operator Relationship Specialty Start Date End Date Name, MD Edmund PCP - General Internal Medicine 01/28/11 documented as of this encounter
--- OUTSIDE RECORDS SUMMARY | 2024-07-12 12:12 | XMS_ITS | Encounter Summary ---
Author Organization [facility] Address [address] [place] [address] Care Team Providers Care Brand Attendant Name Role Phone Name, Edmund HERNANDEZ Primary Care Provider Unavailabl e Encounter Details Date Type Department Care Team Description 05/31/2016 Shot Coat Tender Report Medical Records [address] [place] [address] Monica Duque [address] [place] [address] Social History Tobacco Use Types Packs/Day Years [...] on filedocumented in this encounter Care Teams Brand Attendant Relationship Specialty Start Date End Date Name, MD Edmund PCP - General Internal Medicine 01/28/11 documented as of this encounter
--- OUTSIDE RECORDS SUMMARY | 2024-07-12 12:12 | XMS_ITS | Encounter Summary ---
Author Organization [facility] Address [address] [place] [address] Care Team Providers Care Sports Team Manager Name Role Phone Community, Pcp Primary Care Provider Unavailabl e Edmund Valentino MD Primary Care Provider Unavailabl e Reason for Visit * Reason Onset Date Comments Orders Call 01/06/2011 Encounter Details Date Type Department Care Team Description 01/06/2011 Telephone Adult Medicine [address] [address] Name, MD Edmund Orders Call Social History [...] she should seek alternative health care, at [facility] or at the ed for any [...] She has [employer] H[place] coverage [place]; this [place] in [place]. It will only cover the patient at ER. I spoke with patient yesterday afternoon and explained, will need to cancel this coverage in order to be able to continue care at [facility]. Should patient call this month; coverage will [...] on filedocumented in this encounter Care Teams Sports Team Manager Relationship Specialty Start Date End Date Community, Pcp PCP - General Internal Medicine 01/05/11 01/27/11 Name, MD Edmund PCP - General Internal Medicine 01/28/11 documented as of this encounter
--- OUTSIDE RECORDS SUMMARY | 2024-07-12 12:12 | XMS_ITS | Encounter Summary ---
Author Organization [employer] [facility] Address [address] [place] [address] Care Team Providers Care B2B Account Executive Name Role Phone Name, Edmund HERNANDEZ Primary Care Provider Unavailabl e Reason for Visit * Reason Onset Date Comments TEST RESULTS 05/26/2012 Encounter Details Date Type Department Care Team Description 05/26/2012 Telephone Adult [address] [address] Erin Mcqueen NP TEST RESULTS Social History [...] on filedocumented in this encounter Care Teams B2B Account Executive Relationship Specialty Start Date End Date Name, MD Edmund PCP - General Internal Medicine 01/28/11 documented as of this encounter
--- OUTSIDE RECORDS SUMMARY | 2024-07-12 12:12 | XMS_ITS | Encounter Summary ---
Author Organization [facility] Address [address] [place] [address] Care Team Providers Care Plastic Surgery Assistant Name Role Phone Name, Edmund HERNANDEZ Primary Care Provider Unavailabl e Encounter Details Date Type Department Care Team Description 06/24/2011 Business Doc Medical Records [address] [place] [address] Abstract, Provider Social History Tobacco Use Types [...] on filedocumented in this encounter Care Teams Plastic Surgery Assistant Relationship Specialty Start Date End Date Name, MD Edmund PCP - General Internal Medicine 01/28/11 documented as of this encounter
--- OUTSIDE RECORDS SUMMARY | 2024-07-12 12:12 | XMS_ITS | Encounter Summary ---
[facility] Organization [facility] Address [address] [place] [address] Care Team Providers Care Manager Utilities Name Role Phone Edmund Beck MD Primary Care Provider Unavailabl e Reason for Visit * Reason Onset Date Comments Follow-up Appt Unavailable 05/02/2012 Encounter Details Date Type Department Care Team Description 05/02/2012 Telephone Adult Medicine [address] [address] Name, MD Edmund Follow-up Appt Unavailable Social [...] TO LET HER KNOW ABOUT APPT IN [place]. documented in this encounter Plan of Treatment Not on file documented as of this encounter Visit Diagnoses Not on filedocumented in this encounter Care Teams Manager Utilities Relationship Specialty Start Date End Date Name, MD Edmund PCP - General Internal Medicine 01/28/11 documented as of this encounter
--- OUTSIDE RECORDS SUMMARY | 2024-07-12 12:12 | XMS_ITS | Encounter Summary ---
[facility] Organization [facility] Address [address] [place] [address] Care Team Providers Care Human Resources Benefits Manager Name Role Phone NameEdmund MD Primary Care Provider Unavailabl e Reason for Visit * Reason Onset Date Comments er follow up 07/20/2012 Christy Encounter Details Date Type Department Care Team Description 07/20/2012 Telephone Adult Medicine [address] [address] Name, MD Edmund er follow up (Gee) [...] Which ER did they go to? : [facility] Was the patient admitted? : No. How is the patient feeling? : no change in health status Disposition? : Appointment made for patient at [facility] in 5 day(s) Comments: pain in right side of brain documented in this encounter Plan of Treatment Not on file documented as of this encounter Visit Diagnoses Not on filedocumented in this encounter Care Teams Human Resources Benefits Manager Relationship Specialty Start Date End Date Name, MD Edmund PCP - General Internal Medicine 01/28/11 documented as of this encounter
--- OUTSIDE RECORDS SUMMARY | 2024-07-12 12:13 | XMS_ITS | Encounter Summary ---
Author Organization [employer] Address [address] [facility] 7t [place] [address] Care Team Providers Care Farmworker Grain Name Role Phone Name, Edmund HERNANDEZ Primary Care Provider [phone] Reason for Visit * Reason Comments Med Refill Encounter Details Date Type Department Care Team ([facility] st Contact Info) Description 01/09/2024 Refill [facility] MEDICINE [address] [place], [place] [phone] Name, MD Edmund [address] [place] [address] Social History Tobacco Use Types Packs/Day Years [...] 07/17/2024 10:00 AM EDT Office Visit [facility] MEDICINE [address] [place] [address] Name, MD Edmund [address] [place] [address] documented as of this encounter Visit Diagnoses Not on filedocumented in this encounter Additional Health Concerns Assessment Noted Time PHQ-9 Depression Total Score: 0 07/29/19 24 9:26 AM EDT documented as of this encounter Care Teams Farmworker Grain Relationship Specialty Start Date End Date Name, MD Edmund [address] [place] [address] PCP - General Family Medicine 04/04/15 documented as of this encounter
--- OUTSIDE RECORDS SUMMARY | 2024-07-12 12:13 | XMS_ITS | Encounter Summary ---
Author Organization [facility] Address [address] [place] [address] Care Team Providers Care Truck Engine Technician Name Role Phone Name, Edmund HERNANDEZ Primary Care Provider Unavailabl e Encounter Details Date Type Department Care Team Description 01/21/2015 Business Doc Medical Records [address] [place] [address] Abstract, Provider Social History Tobacco Use Types [...] on filedocumented in this encounter Care Teams Truck Engine Technician Relationship Specialty Start Date End Date Name, MD Edmund PCP - General Internal Medicine 01/28/11 documented as of this encounter
--- OUTSIDE RECORDS SUMMARY | 2024-07-12 12:13 | XMS_ITS | Clinical Summary ---
Author Organization [facility] Address [address] [place] [address] Phone Care Team Providers Care Lab Nurse Name Role Phone Name, Edmund HERNANDEZ Primary Care Provider Allergies Active Allergy Reactions Criticality Noted Date Comments Iodinated Contrast Media Nausea And Vomiting,Other,Swellin g 03/06/2008 Throat closing Medical History Medical History Date Comments Diabetes mellitus (CMS/HCC V24, CMS/[facility] V28) Disease of thyroid gland Tachycardia Asthma [...] mmol/L LAB CHEMISTRY METHOD 02/05/2024 3:56 PM [facility] Potassium 4.3 3.5 - 5.5 mmol/L LAB CHEMISTRY METHOD 02/05/2024 3:56 PM [facility] Chloride 110 96 - 110 mmol/L LAB CHEMISTRY METHOD 02/05/2024 3:56 PM [facility] CO2 26 21 - 32 mmol/L LAB CHEMISTRY METHOD 02/05/2024 3:56 PM [facility] Anion Gap 8 3 - 11 LAB CHEMISTRY METHOD 02/05/2024 3:56 PM [facility] Glucose 113(H) 70 - 100 mg/dL LAB CHEMISTRY METHOD 02/05/2024 3:56 PM [facility] BUN 12 5 - 25 mg/dL LAB CHEMISTRY METHOD 02/05/2024 3:56 PM [facility] Creatinine 0.76 0.50 - 1.10 mg/dL LAB CHEMISTRY METHOD 02/05/2024 3:56 PM [facility] eGFR 89 >=60 mL/min/1. 73m2 LAB CHEMISTRY METHOD 02/05/2024 3:56 PM [facility] Comment:Calculation based on the??Chronic Kidney Disease Epidemiology Collaboration (CKD-EPI) equation refit??without adjustment for race. BUN/Creatinine Ratio 15.8 LAB CHEMISTRY METHOD 02/05/2024 3:56 PM [facility] Calcium 10.2 8.5 - 10.5 mg/dL LAB CHEMISTRY METHOD 02/05/2024 3:56 PM [facility] AST (SGOT) 25 10 - 42 unit/L LAB CHEMISTRY METHOD 02/05/2024 3:56 PM [facility] ALT (SGPT) 31 10 - 60 unit/L LAB CHEMISTRY METHOD 02/05/2024 3:56 PM [facility] Alkaline Phosphatase 112 42 - 121 unit/L LAB CHEMISTRY METHOD 02/05/2024 3:56 PM [facility] Total Protein 7.1 6.0 - 8.0 g/dL LAB CHEMISTRY METHOD 02/05/2024 3:56 PM [facility] Albumin 3.8 3.2 - 5.0 g/dL LAB CHEMISTRY METHOD 02/05/2024 3:56 PM [facility] Total Bilirubin 0.4 0.0 - 1.4 mg/dL LAB CHEMISTRY METHOD 02/05/2024 3:56 PM [facility] Blood Venous blood specimen / Unknown Venipuncture / Unknown 02/05/2024 3:05 PM EST 02/05/2024 3:30 PM EST us Bowen Juarez MD LAB BLOOD ORDERABLES Nazanin l Result [facility] [address] [place] [address], * DX MAMMO INCL CAD BI (11/11/2016 [...] Recently Relevant to Health Maintenance Insurance [facility] MEDICARE Member Subscriber Plan / Payer (Ef fective 2020-Present) Name:Pippa Camilo I Relation to Subscriber:Self Name:Pippa Camilo I Payer ID:[id number] Group ID:[id number] Type:Not on file Address: [facility] [place] [id number] Care Teams Lab Nurse Relationship Specialty Start Date End Date Name, MD Edmund [address] [place], [place] PCP - General Internal Medicine 02/07/08
--- OUTSIDE RECORDS SUMMARY | 2024-07-12 12:13 | XMS_ITS | Encounter Summary ---
Author Organization [employer] Address [address] [facility] 7t [place] [address] Care Team Providers Care Elevator Operator Name Role Phone Name, Edmund HERNANDEZ Primary Care Provider [phone] Reason for Visit * Reason Comments Med Refill Encounter Details Date Type Department Care Team ([facility] st Contact Info) Description 09/23/2023 Refill [facility] MEDICINE [address] [place], [place] [phone] Name, MD Edmund [address] [place] [address] Mild intermittent asthma, unspecified whether complicated Social [...] EDT Office Visit [facility] MEDICINE [address] [place] [address] Name, MD Edmund [address] [place] [address] documented as of this encounter Visit Diagnoses Diagnosis Mild intermittent asthma, unspecified whether complicated documented in this encounter Additional Health Concerns Assessment Noted Time PHQ-9 Depression Total Score: 0 07/29/19 24 9:26 AM EDT documented as of this encounter Care Teams Elevator Operator Relationship Specialty Start Date End Date NameEdmund MD [address] [place] [address] PCP - General Family Medicine 04/04/15 documented as of this encounter
--- OUTSIDE RECORDS SUMMARY | 2024-07-12 12:13 | XMS_ITS | Encounter Summary ---
Author Organization [facility] Address [address] [facility] 7 [place] [address] Care Team Providers Care Controls Engineer Name Role Phone Name, Edmund HERNANDEZ Primary Care Provider Encounter Details Date Type Department Care Team (Late st Contact Info) Description 09/07/2022 Abstract [facility] MEDICINE [address] [place] [address] [phone] Name, MD Edmund [address] [place] [address] Social History Tobacco Use Types Packs/Day Years [...] EDT Office Visit [facility] MED[facility]INE [address] [place] [address] [phone] Name, MD Edmund [address] [place] [address] documented as of this encounter Procedures Procedure Name Priority Date/Time Associated Diagnosis Comments COLONOSCOPY Routine 05/06/2021 documented in this encounter Results * Hm Colonoscopy (05/06/2021) Colonoscopy Normal Normal Narrative Rita Jimenez - 05/06/2021 Recommended 5 year follow up us Historical Provider HEALTH MAINTENANCE Final Result documented in this encounter Visit Diagnoses Not on filedocumented in this encounter Care Teams Controls Engineer Relationship Specialty Start Date End Date Name, [place] [address] PCP - General Family Medicine 04/04/15 documented as of this encounter
--- OUTSIDE RECORDS SUMMARY | 2024-07-12 12:13 | XMS_ITS | Encounter Summary ---
Author Organization [employer] Address [address] [facility] 7t [place] [address] Care Team Providers Care Basket Braider Name Role Phone Name, Edmund HERNANDEZ Primary Care Provider Reason for Visit * Reason Comments Med Refill Encounter Details Date Type Department Care Team ([facility] st Contact Info) Description 10/04/2023 Refill [facility] MEDICINE [address] [place], [place] [phone] Name, MD Edmund [address] [place] [address] Mild intermittent asthma, unspecified whether complicated Social [...] Description 07/17/2024 10:00 AM EDT Office Visit [facility] MEDICINE [address] [place] [address] Name, MD Edmund [address] [place] [address] documented as of this encounter Visit Diagnoses Diagnosis Mild intermittent asthma, unspecified whether complicated documented in this encounter Additional Health Concerns Assessment Noted Time PHQ-9 Depression Total Score: 0 07/29/19 24 9:26 AM EDT documented as of this encounter Care Teams Basket Braider Relationship Specialty Start Date End Date NameEdmund MD [address] [place] [address] PCP - General Family Medicine 04/04/15 documented as of this encounter
--- OUTSIDE RECORDS SUMMARY | 2024-07-12 12:13 | XMS_ITS | Data Portability ---
Author Organization [facility] [employer] Address [address] [place] [address] Care Team Providers Care Paradi Tender Name Role Phone HIM CCA OTHER NAMECOREY Primary Care Provider Assessment Encounter Date Assessment Date Assessment LastModified by Organization Details LastModified Time 07/01/2024 07/01/2024 I provided real -time medical direction via phone for this encounter, and was available for additional phone based assistance as needed. I have reviewed and agree with the Assessment and Plan as documented by the Vice President Of Brand Management. We discussed the diagnostic uncertainty of home [...] ED eval. Family verbalized understanding of instructions. [email or web address] Not available 07/01/2024 11:27:29 Plan of Treatment Reminders Order Date Submit Date Provider Last Modified By Organization Details Last Modified Time Details Appointments None recorded. Lab None recorded. Referral None recorded. Procedures None recorded. Surgeries None recorded. Imaging None recorded. Medication Orders lidocaine 5 % topical patch 2024 025 [id number], [address] [place], [place], [phone], 10:32:00 Patient TargetsNo targets recorded. Patient InstructionsNo instructions recorded. Reason for Referral None Reported. Medical Equipment None Reported. Allergies Allergen ID Allergen Name Allergen Category Reaction Reaction Severity Criticality Documentation Date Start Date Code Code System Note Provider Name and Address Organization Details Recorded Time 22487 purified protein derivativ e of tuberculi n medicatio n Not available Not available Not available 06/30/2024 3248 RxNorm Not Available [employer] - production 5 [...] Updated DateTime 5 79 /min 18 /min 28837.5 76 g 152.4 cm 95 % 95 [...] SNOMED-CT Code Diagnosis ICD10 Code Diagnosis Note [id number] SOMMER LIU NP, S Main - instED [address] [place] [phone] 07/01/2024 10:24:45 07/02/2024 00:12:40 Chronic low back pain [id number] M54.42 M54.41 G89.29 Patient has hx of [...] Hernandez Member ID Guarantor Name 06/30/2024 1 [facility] [employer] - DOS ON OR AFTER 2022 - DUAL ELIGIBLE - ALF OPTIONS AND ONE CARE (MEDICARE REPLACEMENT/ADV ANTAGE - HMO) Pippa Jackson [id number] Pippa Jackson Notes Date Note Type Note [...] .................... .................... .................... .................... .................... .................... . Vice President Of Brand Management Note From America Rose: [facility] makes pt contact. She opens the [...] Pt consents to evaluation and treatment today. [facility] obtains pt consent. Vitals signs are [...] swelling is noted bilaterally and is equal. [facility] contacts [facility] and discusses the above. [facility] recommends heat and ice, gentle stretching, and will prescribe a lidocaine gel or patch for pt. [facility] will also message pt's care team to request a refill of her tramadol. [facility] instructs pt to decrease her Tylenol [...] the development of saddle paralysis. Pt thanks [facility] for visit. [facility] is clear. Report completed by JUAN Rose [id number]. .................... .................... .................... .................... .................... .................... .................... . [facility] Consulted: Sommer Liu .................... .................... .................... .................... .................... .................... .................... . Disposition: Fulfilled SOMMER LIU NP, S [address] [place] [address],[address], [place], [address], SmileFELIPE MORTENSEN 07/01/2024 11:44:34 OBGyn Episode No OBEpisode recorded.
--- OUTSIDE RECORDS SUMMARY | 2024-07-12 12:13 | XMS_ITS | Encounter Summary ---
Author Organization [employer] Address [address] [facility] 7t [place] [address] Care Team Providers Care Metaphysics Teacher Name Role Phone Name, Edmund HERNANDEZ Primary Care Provider [phone] Reason for Visit * Reason Comments Med Refill Encounter Details Date Type Department Care Team ([facility] st Contact Info) Description 06/24/2023 Refill [facility] MEDICINE [address] [place], [place] [phone] Beth Blanco, SALVATORE [address] [place] [address] Social History Tobacco Use Types Packs/Day Years [...] t he electric, gas, oil or water [employer] threatened to shut off services in your [...] Visit [facility] MEDICINE [address] [place] [phone] NameEdmund MD [address] [place] [address] documented as of this encounter Visit Diagnoses Not on filedocumented in this encounter Care Teams Metaphysics Teacher Relationship Specialty Start Date End Date NameEdmund MD [address] [place] [address] PCP - General Family Medicine 04/04/15 documented as of this encounter
--- OUTSIDE RECORDS SUMMARY | 2024-07-12 12:13 | XMS_ITS | Encounter Summary ---
Author Organization [employer] [facility] Address [address] [place] [address], [place] [address] Care Team Providers Care Systems Security Consultant Name Role Phone Name, Edmund HERNANDEZ Primary Care Provider [phone] Encounter Details Date Type Department Care Team (Late Contact Info) Description 07/30/[address] [facility] MEDICINE [address] [place] [address] [phone] NameEdmund MD [address] [place] [address] Social History Tobacco Use Types Packs/Day Years [...] 07/17/2024 10:00 AM EDT Office Visit [facility] MEDICINE [address] [place] [address] [phone] NameEdmund MD [address] [place] [address] [phone] documented as of this encounter Visit Diagnoses Not on filedocumented in this encounter Care Teams Systems Security Consultant Relationship Specialty Start Date End Date Name, MD Edmund [address] [place] [address] PCP - General Family Medicine 04/04/15 documented as of this encounter
--- OUTSIDE RECORDS SUMMARY | 2024-07-12 12:13 | XMS_ITS | Encounter Summary ---
Author Organization [employer] Address [address] [facility] 7t [place] [address] Care Team Providers Care Cotton Baler Name Role Phone Name, Edmund HERNANDEZ Primary Care Provider [phone] Reason for Visit * Reason Comments Med Refill Encounter Details Date Type Department Care Team ([facility] st Contact Info) Description 01/06/2024 Refill [facility] MEDICINE [address] [place], [place] [phone] Beth Blanco, SALVATORE [address] [place] [address] Social History Tobacco Use Types Packs/Day Years [...] AM EDT Office Visit [facility] MEDICINE [address] [place] [address] Name, MD Edmund [address] [place] [address] documented as of this encounter Visit Diagnoses Not on filedocumented in this encounter Additional Health Concerns Assessment Noted Time PHQ-9 Depression Total Score: 0 07/29/19 24 9:26 AM EDT documented as of this encounter Care Teams Cotton Baler Relationship Specialty Start Date End Date Name, MD Edmund [address] [place] [address] PCP - General Family Medicine 04/04/15 documented as of this encounter
--- OUTSIDE RECORDS SUMMARY | 2024-07-12 12:13 | XMS_ITS | Encounter Summary ---
Author Organization [employer] [facility] Address [address] [facility] 7 [place] [address] Care Team Providers Care Supervisor Electronic Testing Name Role Phone Name, Edmund HERNANDEZ Primary Care Provider [phone] Encounter Details Date Type Department Care Team (Late st Contact Info) Description 09/02/2022 Abstract [facility] MEDICINE [address] [place] [address] [phone] Name, MD Edmund [address] [place] [phone] Social History Tobacco Use Types Packs/Day Years [...] Description 07/17/2024 10:00 AM EDT Office Visit [facility] MEDICINE [address] [place] [address] [phone] Name, MD Edmund [address] [place] [address] documented as of this encounter Visit Diagnoses Not on filedocumented in this encounter Care Teams Supervisor Electronic Testing Relationship Specialty Start Date End Date Name, MD Edmund [address] [place] [address] PCP - General Family Medicine 04/04/15 documented as of this encounter
--- OUTSIDE RECORDS SUMMARY | 2024-07-12 12:13 | XMS_ITS | Encounter Summary ---
Author Organization [employer] Address [address] [facility] 7 [place] [address] Care Team Providers Care Manager Heavy Equipment Name Role Phone Name, Edmund HERNANDEZ Primary Care Provider [phone] Reason for Visit * Reason Onset Date Comments Medication Question 07/03/2024 Med Refill 07/03/2024 Encounter Details Date Type Department Care Team ([facility] st Contact Info) Description 07/03/2024 Telephone [facility] MEDICINE [address] [place], [place] [phone] Name, MD Edmund [address] [place], [place] [phone] Medication Question; Med Refill Social History Tobacco [...] TC x 2 placed to pt via [employer] deckhand oyster dredge (Kvng ID#[id number]) regarding below message about tramadol. Nolalo, LVM [...] for Tramadol 50mg. To be sent to: [id number] - [place], [place] - [address] [facility] IF any questions contact pt at [phone] (cameroonian) documented in this encounter Plan of Treatment Upcoming Encounters Date Type Department Care Team (Late st Contact Info) Description 07/17/2024 10:00 AM EDT Office Visit [facility] MEDICINE [address] [place] [address] Name, MD Edmund [address] [place] [address] documented as of this encounter Visit Diagnoses Not on filedocumented in this encounter Additional Health Concerns Assessment Noted Time PHQ-9 Depression Total Score: 0 07/29/19 24 9:26 AM EDT documented as of this encounter Care Teams Manager Heavy Equipment Relationship Specialty Start Date End Date Name, MD Edmund [address] [place] [address] PCP - General Family Medicine 04/04/15 documented as of this encounter
--- OUTSIDE RECORDS SUMMARY | 2024-07-12 12:13 | XMS_ITS | Encounter Summary ---
Author Organization [employer] Address 75 [facility] 7t [place] [address] Care Team Providers Care Manager Pipeline Name Role Phone Name, Edmund HERNANDEZ Primary Care Provider [phone] Reason for Visit * Reason Comments Med Refill Encounter Details Date Type Department Care Team ([facility] st Contact Info) Description 05/06/2023 Refill [facility] MEDICINE [address] [place], [place] [phone] Name, MD Edmund [address] [place] [address] Social History Tobacco Use Types Packs/Day Years [...] t he electric, gas, oil or water [employer] threatened to shut off services in your [...] AM EDT Office Visit [facility] MEDICINE [address] [place] [phone] NameEdmund MD [address] [place] [address] documented as of this encounter Visit Diagnoses Not on filedocumented in this encounter Care Teams Manager Pipeline Relationship Specialty Start Date End Date NameEdmund MD [address] [place] [address] PCP - General Family Medicine 04/04/15 documented as of this encounter
--- OUTSIDE RECORDS SUMMARY | 2024-07-12 12:13 | XMS_ITS | Encounter Summary ---
Author Organization [email or web address] [facility] Address [address] [place] [address] [address], [place] [address] Care Team Providers Care Customer Experience Strategist Name Role Phone Name, Edmund HERNANDEZ Primary Care Provider [phone] Encounter Details Date Type Department Care Team (Late Contact Info) Description 08/19/2022 Abstract [facility] [address] [place] [address] [phone] NameEdmund MD [address] [place] [address] Social History Tobacco Use Types Packs/Day Years [...] Visit [facility] [address] [place] [address] [phone] NameEdmund MD [address] [place] [address] [phone] documented as of this encounter Visit Diagnoses Not on filedocumented in this encounter Care Teams Customer Experience Strategist Relationship Specialty Start Date End Date Name, MD Edmund [address] [place] [address] PCP - General Family Medicine 04/04/15 documented as of this encounter
--- OUTSIDE RECORDS SUMMARY | 2024-07-12 12:13 | XMS_ITS | Encounter Summary ---
Author Organization [employer] Address [address] [facility] 7t [place] [address] Care Team Providers Care Distribution Center Supervisor Name Role Phone Name, Edmund HERNANDEZ Primary Care Provider [phone] Reason for Visit * Reason Onset Date Comments Appointment Request 05/16/2023 Encounter Details Date Type Department Care Team ([facility] st Contact Info) Description 05/16/[address] [facility] [address] [place], [place] [phone] Name, MD Edmund [address] [place] [address] Appointment Request Social History Tobacco Use Types [...] to cancel and reschedule appt for 05/15 science writer did cancel per patients request documented in this encounter Plan of Treatment Upcoming Encounters Date Type Department Care Team (Late st Contact Info) Description 07/17/2024 10:00 AM EDT Office Visit [facility] [address] [place] [address] Name, MD Edmund [address] [place] [address] documented as of this encounter Visit Diagnoses Not on filedocumented in this encounter Care Teams Distribution Center Supervisor Relationship Specialty Start Date End Date Name, MD Edmund [address] [place] [address] PCP - General Family Medicine 04/04/15 documented as of this encounter
--- OUTSIDE RECORDS SUMMARY | 2024-07-12 12:13 | XMS_ITS | Encounter Summary ---
Author Organization [employer] Address 75 [facility] [address] [address] Care Team Providers Care Alarm Signaler Name Role Phone Name, Edmund HERNANDEZ Primary Care Provider [phone] Reason for Visit * Reason Onset Date Comments Pre OP 06/30/2022 Encounter Details Date Type Department Care Team ([facility] st Contact Info) Description 06/30/2022 Telephone [facility] [address] [place] [address] [phone] Name, MD Edmund [address] [place] [address] Pre OP Social History Tobacco Use Types [...] repair on 09/22/[address] Cobb at [facility]. Pt will be under general and popliteal [...] 2:33 PM EDT Tc from Bill from [facility] orthopedics returning call for PRE-OP appt , please see notes also stated surgeon will place order for EKG. Please contact at [phone] * Telephone Encounter - Julee Chung - 06/30/2022 1:46 PM EDT TC from Bill from [facility] requesting a PRE-OP Location: [address] Procedure: tendon repair Date of procedure: 09/22/22 @ 11:30am Labs: yes Ekg: yes Anesthesia Type : general and popliteal block Surgeon Name: donna tomlinson documented in this encounter Plan of Treatment Upcoming Encounters Date Type Department Care Team (Late st Contact Info) Description 07/17/2024 10:00 AM EDT Office Visit [facility] [address] [place] [address] Name, MD Edmund [address] [place] [address] documented as of this encounter Visit Diagnoses Not on filedocumented in this encounter Care Teams Alarm Signaler Relationship Specialty Start Date End Date Name, MD Edmund [address] [place] [address] PCP - General Family Medicine 04/04/15 documented as of this encounter
--- OUTSIDE RECORDS SUMMARY | 2024-07-12 12:13 | XMS_ITS | Encounter Summary ---
Author Organization [employer] Address 75 [facility] 7t [place] [address] Care Team Providers Care Electronic Systems Technician Name Role Phone Name, Edmund HERNANDEZ Primary Care Provider [phone] Reason for Visit * Reason Comments Med Refill Encounter Details Date Type Department Care Team ([facility] st Contact Info) Description 12/30/2022 Refill [facility] CHC MED & PEDS [address] [place], [place] [phone] Name, MD Edmund [address] [place] [address] Social History Tobacco Use Types Packs/Day Years [...] t he electric, gas, oil or water [employer] threatened to shut off services in your [...] Visit [facility] MEDICINE [address] [place] [phone] NameEdmund MD [address] [place] [address] documented as of this encounter Visit Diagnoses Not on filedocumented in this encounter Care Teams Electronic Systems Technician Relationship Specialty Start Date End Date Edmund Valentino MD [address] [place] [address] PCP - General Family Medicine 04/04/15 documented as of this encounter
--- OUTSIDE RECORDS SUMMARY | 2024-07-12 12:13 | XMS_ITS | Encounter Summary ---
Author Organization [employer] Address 75 [facility] 7t [place] [address] Care Team Providers Care Net C Developer Name Role Phone Name, Edmund HERNANDEZ Primary Care Provider [phone] Reason for Visit * Reason Comments Med Refill Encounter Details Date Type Department Care Team ([facility] st Contact Info) Description 01/19/2023 Refill [facility] CHC MED & PEDS [address] [place], [place] [phone] Name, MD Edmund [address] [place] [address] Social History Tobacco Use Types Packs/Day Years [...] t he electric, gas, oil or water [employer] threatened to shut off services in your [...] Office Visit [facility] MEDICINE [address] [place] [phone] NameEdmund MD [address] [place] [address] documented as of this encounter Visit Diagnoses Not on filedocumented in this encounter Care Teams Net C Developer Relationship Specialty Start Date End Date Edmund Valentino MD [address] [place] [address] PCP - General Family Medicine 04/04/15 documented as of this encounter
== END 2024-07-12 11:34 | disposition home or self-care (01) ==
LOC: HO.HGS 11:00
PROVIDERS: PCP Internal Medicine Geriatric Medicine; Visit Provider Surgery
DX: N60.99 Unspecified benign mammary dysplasia of unspecified breast (principal); Z91.89 Other specified personal risk factors, not elsewhere classified
CPT/HCPCS: 99213; G2211

== ENCOUNTER → 2024-07-12 11:00 | Outpatient (BNVA) | payer OTHER, SELFPAY | PROVIDERS: PCP Internal Medicine Geriatric Medicine; Visit Provider Surgery | DX: N60.99 Unspecified benign mammary dysplasia of unspecified breast (principal); Z91.89 Other specified personal risk factors, not elsewhere classified | CPT/HCPCS: 99212 ==

== ENCOUNTER 2024-07-17 10:59 | Outpatient (REF) | payer OTHER, SELFPAY ==
--- OUTSIDE RECORDS SUMMARY | 2024-07-17 12:15 | XMS_ITS | Encounter Summary ---
Author Organization [employer] Address 75 [facility] 7t h Floor [address] Care Team Providers Care Shoe Dresser Name Role Phone Name, Edmund HERNANDEZ Primary Care Provider [phone] Encounter Details Date Type Department Care Team (Late st Contact Info) Description 05/12/2022 Orders Only [facility] CHC MED & PEDS [address] [place] [address] Sarah Sherwood LPN Social History Tobacco Use [...] on file documented as of this encounter Procedures Procedure Name Priority Date/Time Associated Diagnosis Comments VASC US LOWER EXTREMITY VENOUS DUPLEX RIGHT Routine 06/11/2022 2:15 PM EDT XR CHEST 2 VIEWS Routine 05/19/2022 5:03 PM EDT documented in this encounter Results * Vascular US lower extremity venous duplex right (06/11/2022 2:15 PM EDT) 06/11/2022 2:15 PM EDT Narrative [facility] - 06/11/2022 3:03 PM EDT ? [facility] ?[address] ?[place] [address] ? Ultrasound Report ? Signed ? Patient: Renetta Colon,Pippa I ?MR#: [id number] ?? [id number] ? : 1960 ?Acct:[id number] ? Age/Sex: 61 / F ?ADM Date: 06/11/22 ? Loc: HO.US ? Attending Dr: Uli Prakash MD ? Ordering Physician: ULI PRAKASH MD ?? Date of Service: 06/11/22 ?? Procedure(s): US venous duplex LE RT ?? Accession Number(s): [id number] ? cc: ULI PRAKASH MD ? EXAMINATION: [...] 1500 ? DD/ 1415 ? TD/TT: ? Pigment Presser: SK ? Procedure Note Perfecto Nair - 06/11/2022 [place] [id number] [place] [address] Ultrasound Report Signed Patient: Pippa Camilo IMR#: [id number] : 1960Acct:[id number] Age/Sex: 61 / FADM Date: 06/11/22 Loc: HO.US Attending Dr: Uli Prakash MD Ordering Physician: ULI PRAKASH MD Date of Service: 06/11/22 Procedure(s): US venous duplex LE RT Accession Number(s): [id number] cc: ULI PRAKASH MD EXAMINATION: US VENOUS [...] in OV> 06/11/22 1500 DD/ 1415 TD/TT: Pigment Presser: JOSE [facility] External Provider CV VASC ULAR PROCEDURES Edited Result - Final Performing Organization Address City/State/[facility] Co de Phone Number [facility] [address] [place] [address] * XR Chest 2 Views (05/19/2022 5:03 PM EDT) Anatomical Region Laterality Modality Chest Radiographic Suzanne ging 05/19/2022 5:03 PM EDT Narrative 05/25/2022 1:42 PM EDT ? [facility] ?[address] ?[place] [address] ?XRay Report ? Signed ? Patient: Renetta Colon,Pippa I ?MR#: [id number] ?? [id number] ? : 1960 ?Acct:[id number] ? Age/Sex: 61 / F ?ADM Date: 05/19/22 ? Loc: HO.XRAY ? Attending Dr: Uli Prakash MD ? Ordering Physician: ULI PRAKASH MD ?? Date of Service: 05/19/22 ?? Procedure(s): XR chest 2V ?? Accession Number(s): [id number] ? cc: ULI PRAKASH MD ? EXAMINATION: [...] 1340 ? DD/ 1703 ? TD/TT: ? Pigment Presser: SERGIO ? Procedure Note Joanie, Image - 05/25/2022 [place] [address] XRay Report Signed Patient: Pippa Camilo IMR#: [id number] : 1960Acct:[id number] Age/Sex: 61 / FADM Date: 05/19/22 Loc: JESSICA.[place] Attending Dr: Uli Prakash MD Ordering Physician: ULI PRAKASH MD Date of Service: 05/19/22 Procedure(s): XR chest 2V Accession Number(s): [id number] cc: ULI PRAKASH MD EXAMINATION: XR CHEST [...] in OV> 05/25/22 1340 DD/ 1703 TD/TT: Pigment Presser: SERGIO Authorahsan Provider Result Type Result Stat [facility] External Provider IMG XR PROCEDURES Edited Result - Final documented in this encounter Visit Diagnoses Not on filedocumented in this encounter Care Teams Shoe Dresser Relationship Specialty Start Date End Date Name, MD Edmudn [address] [place] [address] PCP - General Family Medicine 04/04/15 documented as of this encounter
--- OUTSIDE RECORDS SUMMARY | 2024-07-17 12:15 | XMS_ITS | Clinical Summary ---
Author Organization [facility] Address [address] [place] [address] Phone Care Team Providers Care Recreational Therapy Technician Name Role Phone Name, Edmund HERNANDEZ Primary Care Provider [phone] Allergies Active Allergy Reactions Criticality Noted Date Comments Iodinated Contrast Media Nausea And Vomiting,Other,Swellin g 03/06/2008 Throat closing Medical History Medical History Date Comments Diabetes mellitus (CMS/HCC V24, CMS/[facility] V28) Disease of thyroid gland Tachycardia [...] mmol/L LAB CHEMISTRY METHOD 02/05/2024 3:56 PM [facility] Potassium 4.3 3.5 - 5.5 mmol/L LAB CHEMISTRY METHOD 02/05/2024 3:56 PM [facility] Chloride 110 96 - 110 mmol/L LAB CHEMISTRY METHOD 02/05/2024 3:56 PM [facility] CO2 26 21 - 32 mmol/L LAB CHEMISTRY METHOD 02/05/2024 3:56 PM [facility] Anion Gap 8 3 - 11 LAB CHEMISTRY METHOD 02/05/2024 3:56 PM [facility] Glucose 113(H) 70 - 100 mg/dL LAB CHEMISTRY METHOD 02/05/2024 3:56 PM [facility] BUN 12 5 - 25 mg/dL LAB CHEMISTRY METHOD 02/05/2024 3:56 PM [facility] Creatinine 0.76 0.50 - 1.10 mg/dL LAB CHEMISTRY METHOD 02/05/2024 3:56 PM [facility] eGFR 89 >=60 mL/min/1. 73m2 LAB CHEMISTRY METHOD 02/05/2024 3:56 PM [facility] Comment:Calculation based on the??Chronic Kidney Disease Epidemiology Collaboration (CKD-EPI) equation refit??without adjustment for race. BUN/Creatinine Ratio 15.8 LAB CHEMISTRY METHOD 02/05/2024 3:56 PM [facility] Calcium 10.2 8.5 - 10.5 mg/dL LAB CHEMISTRY METHOD 02/05/2024 3:56 PM [facility] AST (SGOT) 25 10 - 42 unit/L LAB CHEMISTRY METHOD 02/05/2024 3:56 PM [facility] ALT (SGPT) 31 10 - 60 unit/L LAB CHEMISTRY METHOD 02/05/2024 3:56 PM [facility] Alkaline Phosphatase 112 42 - 121 unit/L LAB CHEMISTRY METHOD 02/05/2024 3:56 PM [facility] Total Protein 7.1 6.0 - 8.0 g/dL LAB CHEMISTRY METHOD 02/05/2024 3:56 PM [facility] Albumin 3.8 3.2 - 5.0 g/dL LAB CHEMISTRY METHOD 02/05/2024 3:56 PM [facility] Total Bilirubin 0.4 0.0 - 1.4 mg/dL LAB CHEMISTRY METHOD 02/05/2024 3:56 PM [facility] Blood Venous blood specimen / Unknown Venipuncture / Unknown 02/05/2024 3:05 PM EST 02/05/2024 3:30 PM EST us Bowen Juarez MD LAB BLOOD ORDERABLES Nazanin l Result [facility] [address] [place] [address], * DX MAMMO INCL CAD BI (11/11/2016 [...] Most Recently Relevant to Health Maintenance Insurance [facility] MEDICARE Member Subscriber Plan / Payer (Ef fective 2020-Present) Name:Pippa Camilo I Relation to Subscriber:Self Name:Pippa Camilo I Payer ID:[id number] Group ID:[id number] Type:Not on file Address: [address] [facility] [place] [address] Care Teams Recreational Therapy Technician Relationship Specialty Start Date End Date Name, MD Edmund [address] [place], [place] PCP - General Internal Medicine 02/07/08
--- OUTSIDE RECORDS SUMMARY | 2024-07-17 12:15 | XMS_ITS | Encounter Summary ---
Author Organization [employer] Address [address] [facility] 7 [place] [address] Care Team Providers Care Auxiliary Power Equipment Operator Name Role Phone Name, Edmund HERNANDEZ Primary Care Provider [phone] Reason for Visit * Reason Onset Date Comments mail appt slip 03/15/2024 Encounter Details Date Type Department Care Team ([facility] Contact Info) Description 03/15/2024 Telephone [facility] [address] [place] [address] Lillie Witt mail appt slip Social History [...] documented as of this encounter Care Teams Auxiliary Power Equipment Operator Relationship Specialty Start Date End Date Name, MD Edmund [address] [place] [address] PCP - General Family Medicine 04/04/15 documented as of this encounter
--- OUTSIDE RECORDS SUMMARY | 2024-07-17 12:15 | XMS_ITS | Encounter Summary ---
Author Organization [employer] Address [address] [facility] 7t [place] [address] Care Team Providers Care Loading Unit Operator Seating Name Role Phone Name, Edmund HERNANDEZ Primary Care Provider [phone] Reason for Visit * Reason Comments Med Refill Encounter Details Date Type Department Care Team ([facility] st Contact Info) Description 02/10/2024 Refill [facility] CH[facility] MED & PEDS [address] [place], [place] [phone] Name, MD Edmund [address] [place] [address] Social History Tobacco Use Types Packs/Day Years [...] documented as of this encounter Care Teams Loading Unit Operator Seating Relationship Specialty Start Date End Date Name, MD Edmund [address] [place] [address] PCP - General Family Medicine 04/04/15 documented as of this encounter
--- OUTSIDE RECORDS SUMMARY | 2024-07-17 12:16 | XMS_ITS | Encounter Summary ---
Author Organization [employer] [facility] Address [address] [facility] 7t [place] [address] Care Team Providers Care Reception Specialist Name Role Phone Name, Edmund HERNANDEZ Primary Care Provider [phone] Reason for Visit * Reason Comments Med Refill Encounter Details Date Type Department Care Team ([facility] st Contact Info) Description 06/24/2023 Refill [facility] [address] [place], [place] [phone] Beth Blanco, SALVATORE [address] [place], [place] [phone] Social History Tobacco Use Types Packs/Day Years [...] t he electric, gas, oil or water [employer] threatened to shut off services in your [...] on filedocumented in this encounter Care Teams Reception Specialist Relationship Specialty Start Date End Date Name, MD Edmund [address] [place] [address] PCP - General Family Medicine 04/04/15 documented as of this encounter
--- OUTSIDE RECORDS SUMMARY | 2024-07-17 12:16 | XMS_ITS | Encounter Summary ---
Author Organization [employer] Address [address] [facility] 7t [place] [address] Care Team Providers Care Ob/Gyn Doctor Name Role Phone Name, Edmund HERNANDEZ Primary Care Provider [phone] Encounter Details Date Type Department Care Team (Latest Contact Info) Description 07/17/2024 Travel Social History Tobacco Use Types Packs/Day [...] Date Recorded Patient Health Questionnaire-9 Score 0 07/17/2024 Patient Health Questionnaire-9 Score 0 07/17/2024 Last PHQ-9: Questionnaire Data Not on file 0 07/17/2024 Housing Stability Answer Date Recorded What is your housing situation today? I have aron toney 07/17/[address] you li ve. Do you have problems with any of the following? None of the above 07/17/2024 Food Insecurity Answer Date Recorded Within the past 12 months, y ou worried that your food would run out before you got money to buy more: Never True 07/17/2024 Within the past 12 months,th e food you bought just didn't last and you didn't have enough money to get more: Never True Transportation Answer Date Recorded In the past 12 months, has l ack of transportation kept you from medical appts, meetings, work or from getting things needed for daily living? No 07/17/2024 Utilities Answer Date Recorded In the past 12 months, has t he electric, gas, oil or water company threatened to shut off services in your home? No 07/17/2024 Depression Answer Date Recorded Patient Health Questionnaire-2 Score 0 07/17/2024 Internet Access Answer Date Recorded Internet Access Q1 Yes 07/17/2024 Internet Access Q2 Not on file 07/17/2024 Comments Unknown Sex and Gender Information Value Date Recorded Sex Assigned at Female 12/28/2021 10:29 AM EDT Legal Sex Female 10:29 AM EDT Gender Identity Female 12/28/2021 10:29 AM EDT Sexual Orientation Straight 12/28/2021 10 :29 AM EDT documented as of this encounter Functional Status * Over the past 2 weeks, how often have you been bothered by any of the following problems? Question Answer Date of Assessment Author Patient Health Questionnaire-2 Score 0 07/17/2024 10:30 AM EDT Imelda Norris [place] * Little interest or pleasure in doing things Answer Date of Assessment Author Not at all 07/17/2024 10:30 AM EDT Imelda Quesada [place], [place] * Feeling down, depressed, or hopeless Answer Date of Assessment Author Not at all 07/17/2024 10:30 AM BALBINAT Imelda Quesada [place], [place] * Trouble falling or staying asleep, or sleeping too much Answer Date of Assessment Author Not at all 07/17/2024 10:30 AM Imelda Carvajal [place], [place] * Feeling tired or having little energy Answer Date of Assessment Author Not at all 07/17/2024 10:30 AM EDT Imelda Quesada [place], [place] * Poor appetite or overeating Answer Date of Assessment Author Not at all 07/17/2024 10:30 AM Imelda Carvajal [place], [place] * Feeling bad about yourself - or that you are a failure or have let yourself or your family down Answer Date of Assessment Author Not at all 07/17/2024 10:30 AM Imelda Carvajal [place], [place] * Trouble concentrating on things, such as reading the newspaper or watching television Answer Date of Assessment Author Not at all 07/17/2024 10:30 AM EDT Imelda Quesada [place], [place] * Moving or speaking so slowly that other people could have noticed? Or the opposite - being so fidgety or restless that you have been moving around a lot more than usual. Answer Date of Assessment Author Not at all 07/17/2024 10:30 AM EDT Imelda Quesada [place], [place] * Thoughts that you would be better off or hurting yourself in some way Answer Date of Assessment Author Not at all 07/17/2024 10:30 AM EDT Imelda Quesada [place], [place] * Patient Health Questionnaire-9 Score Answer Date of Assessment Author 0 07/17/2024 10:30 AM EDT Imelda Quesada [place], [place] * Over the last 2 weeks, how often have you been bothered by any of the following problems? Question Answer Date of Assessment Author Feeling nervous, anxious, or on edge 0 07/17/2024 10:30 AM EDT Imelda Kwon [place] Not being able to stop or control worrying 0 07/17/2024 10:30 AM EDT Imelda Kwon [place] Worrying too much about different things 0 07/17/2024 10:30 AM EDT Imelda Kwon [place] Trouble relaxing 0 07/17/2024 10:30 AM EDT Imelda Kwon [place] Being so restless that it is hard to sit still 0 07/17/2024 10:30 AM EDT Imelda Kwon MA Becoming easily annoyed or irritable 0 07/17/2024 10:30 AM EDT Imelda Kwon [place] Feeling afraid as if something awful might happen 0 07/17/2024 10:30 AM EDT Imelda Lee MA JEANNIE-7 Total Score 0 07/17/2024 10:30 AM EDT Imelda Kwon [place] documented as of this encounter Plan of Treatment Not on file documented as of this encounter Visit Diagnoses Not on filedocumented in this encounter Additional Health Concerns Assessment Noted Time PHQ-9 Depression Total Score: 0 07/18/19 25 10:30 AM EDT documented as of this encounter Care Teams Ob/Gyn Doctor Relationship Specialty Start Date End Date Name, MD Edmund [address] [place] [address] PCP - General Family Medicine 04/04/15 documented as of this encounter
--- OUTSIDE RECORDS SUMMARY | 2024-07-17 12:16 | XMS_ITS | Encounter Summary ---
Author Organization [employer] [facility] Address [address] [place] [address] Care Team Providers Care Gas Worker Name Role Phone Edmund Valentino MD Primary Care Provider [phone] Reason for Referral * Consultation (Routine) - Pending Review Specialty Diagnoses / Procedures Referred By Contac t Referred To Contact Physical Therapy Diagnoses Chronic midline low back pain without sciatica Edmund Valentino MD [address] [place] [address] Phone: tel: fax: Referral ID Status Reason Start Date Expiration Date Visits Requested Visits Authorized [id number] Pending Review Specialty Services Required 07/17/2024 07/17/2025 1 1 * Medications - Closed Specialty Diagnoses / Procedures [facility] To Contact Diagnoses Type 2 diabetes mellitus without complication, without long-term current use of insulin ([facility]) Edmund Valentino MD [address] [place] [address] Phone: tel: fax: Referral ID Status Reason Start Date Expiration Date Visits Re quested Visits Authorized [id number] Closed 1 1 Reason for Visit * Reason Comments Diabetes Encounter Details Date Type Department Care Team ([facility] Contact Info) Description 07/17/2024 10:00 AM EDT Office Visit [facility] MEDICINE [address] [place], [place] [phone] Edmund Valentino MD [address] [facility] [place] [address] Type 2 diabetes mellitus without complication, without long-term current use of insulin (CMS/HCC) (Primary Dx); DJD (degenerative joint disease), lumbosacral; Chronic midline low back pain without sciatica Social History Tobacco Use Types Packs/Day Years [...] Sign Reading Time Taken Comments Blood Pressure 137/85 07/17/2024 10:26 AM EDT Pulse 75 07/17/2024 10:26 AM EDT Temperature 36.5 ??C (97.7 ??F) 07/17/2024 10:26 AM E DT Respiratory Rate 16 07/17/2024 10:26 AM EDT Oxygen Saturation 97% 07/17/2024 10:26 AM EDT Inhaled Oxygen Concentration - - Weight 70.1 kg (154 lb 8 oz) 07/17/2024 10:26 AM EDT Height 152.4 cm (5') 07/17/2024 10:26 AM EDT Body Mass Index 30.17 07/17/2024 10:26 AM EDT documented in this encounter Functional Status * Over the [...] AM EDT Imelda Quesada [place], [place] * Trouble falling or staying asleep, or sleeping too much Answer Date of Assessment Author Not at all 07/17/2024 10:30 AM EDT Imelda Quesada [place], [place] * Feeling tired or having little energy Answer Date of Assessment Author Not at all 07/17/2024 10:30 AM EDT Imelda Quesada [place], [place] * Poor appetite or overeating Answer Date of Assessment Author Not at all 07/17/2024 10:30 AM EDT Imelda Quesada [place], [place] * Feeling bad about yourself - or that you are a failure or have let yourself or your family down Answer Date of Assessment Author Not at all 07/17/2024 10:30 AM EDT Imelda Quesada [place], [place] * Trouble concentrating on things, [...] MA Trouble relaxing 0 07/17/2024 10:30 AM BALBINAT Imelda Kwon [place] Being so restless that it is hard to sit still 0 07/17/2024 10:30 AM BALBINAT Imelda Kwon [place] Becoming easily annoyed or irritable 0 07/17/2024 10:30 AM BALBINAT Imelda Kwon [place] Feeling afraid as if something awful might happen 0 07/17/2024 10:30 AM EDT Imelda Lee MA JEANNIE-7 Total Score 0 07/17/2024 10:30 AM EDT Imelda Kwon [place] documented as of this encounter Plan of Treatment Scheduled Orders Name Type Priority Associated Diagnoses Orde r Schedule Albumin, Random Urine W/Creatinine Lab Routine Type 2 diabetes mellitus without complication, without long-term current use of insulin ([facility]) Expected: 07/17/2024 (Approximate), Expires: 07/17/2025 Lipid Panel, Standard Lab Routine Type 2 diabetes mellitus without complication, without long-term current use of insulin ([facility]) Expected: 07/17/2024 (Approximate), Expires: 07/17/2025 Scheduled Referrals Name Type Priority Associated Diagnoses Orde r Schedule Referral to Physical Therapy Outpatient Referral Routine Chronic midline low back pain without sciatica Expected: 07/17/2024 (Approximate), Expires: 07/17/2025 documented as of this encounter Procedures Procedure Name Priority Date/Time Associated Diagnosis Comments POCT GLYCATED HEMOGLOBIN, TOTAL Routine 07/17/2024 10:28 AM EDT Type 2 diabetes mellitus without complication, without long-term current use of insulin ([facility]) POCT GLUCOSE Routine 07/17/2024 10:27 AM EDT Type 2 diabetes mellitus without complication, without long-term current use of insulin ([facility]) documented in this encounter Results * (ABNORMAL) POCT HGB A1C (07/17/2024 10:28 AM EDT) Hemoglobin A1C 7.4(A) 4.0 - 6.0 % QC Media Lot # [id number] Lot# Expiration Date , Blood 07/17/2024 10:2 8 AM EDT us Edmund Valentino MD POINT OF CARE TEST ENTER/EDIT OR DERABLES Final Result * POCT Glucose (07/17/2024 10:27 AM EDT) Glucose Blood, POC 127 60 - 200 mg/dL QC Media Lot # [id number] Lot# Expiration Date Blood Capillary blood specimen / Unknown 07/17/2024 10:27 AM EDT Edmund Valentino MD POINT OF CARE TEST ENTER/EDIT OR DERABLES Final Result documented in this encounter Visit Diagnoses Diagnosis Type 2 diabetes mellitus without complication, without long-term current use of insulin ([facility])- Primary DJD (degenerative joint disease), 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
--- OUTSIDE RECORDS SUMMARY | 2024-07-17 12:16 | XMS_ITS | Encounter Summary ---
Author Organization [employer] Address 75 [facility] 7 [place] [address] Care Team Providers Care Technical Services Consultant Name Role Phone Name, Edmund HERNANDEZ Primary Care Provider [phone] Reason for Visit * Reason Comments Med Refill Encounter Details Date Type Department Care Team ([facility] st Contact Info) Description 01/09/2024 Refill [facility] MEDICINE [address] [place], [place] [phone] Name, MD Edmund [address] [place] [address] Social History Tobacco Use Types Packs/Day Years [...] documented as of this encounter Care Teams Technical Services Consultant Relationship Specialty Start Date End Date Name, MD Edmund [address] [place] [address] PCP - General Family Medicine 04/04/15 documented as of this encounter
--- OUTSIDE RECORDS SUMMARY | 2024-07-17 12:16 | XMS_ITS | Encounter Summary ---
Author Organization [employer] Address 75 [facility] 7t [place] [address] Care Team Providers Care Armature Winder Repairer Name Role Phone Name, Edmund HERNANDEZ Primary Care Provider [phone] Reason for Visit * Reason Comments Med Refill Encounter Details Date Type Department Care Team ([facility] st Contact Info) Description 12/30/2022 Refill [facility] MED & PEDS [address] [place], [place] [phone] Name, MD Edmund [address] [place] [address] Social History Tobacco Use Types Packs/Day Years [...] t he electric, gas, oil or water [employer] threatened to shut off services in your [...] on filedocumented in this encounter Care Teams Armature Winder Repairer Relationship Specialty Start Date End Date Name, MD Edmund [address] [place] [address] PCP - General Family Medicine 04/04/15 documented as of this encounter
--- OUTSIDE RECORDS SUMMARY | 2024-07-17 12:16 | XMS_ITS | Encounter Summary ---
Author Organization [employer] Address 75 [facility] 7 [place] [address] Care Team Providers Care Travel Consultant Name Role Phone Name, Edmund HERNANDEZ Primary Care Provider [phone] Reason for Visit * Reason Comments Med Refill Encounter Details Date Type Department Care Team ([facility] st Contact Info) Description 09/23/2023 Refill [facility] MEDICINE [address] [place], [place] [phone] Name, MD Edmund [address] [place] [address] Mild intermittent asthma, unspecified whether complicated Social [...] documented as of this encounter Care Teams Travel Consultant Relationship Specialty Start Date End Date Name, MD Edmund [address] [place] [address] PCP - General Family Medicine 04/04/15 documented as of this encounter
--- OUTSIDE RECORDS SUMMARY | 2024-07-17 12:16 | XMS_ITS | Encounter Summary ---
Author Organization [employer] Address 75 [facility] 7t [place] [address] Care Team Providers Care Clerical Investigator Name Role Phone Name, Edmund HERNANDEZ Primary Care Provider [phone] Encounter Details Date Type Department Care Team ([facility] st Contact Info) Description 07/10/2024 Orders Only [facility] MEDICINE [address] [place], [place] [phone] Name, MD Edmund [address] [place], [place] [phone] Social History Tobacco Use Types Packs/Day Years [...] Procedure Name Priority Date/Time Associated Diagnosis Comments BI MAMMOGRAM SCREENING TOMOSYNTHESIS BILATERAL Routine 07/10/2024 2:30 PM EDT documented in this encounter Results * BI Mammogram Screening Tomosynthesis Bilateral (07/10/2024 2:30 PM EDT) Anatomical Region Laterality Modality Breast Bilateral Mammography 07/10/2024 2:30 PM EDT Narrative 07/16/2024 5:58 PM EDT ? [facility] ? [address] ?[place] [address] ?[phone] ? Mammography Report ? Signed ? Patient: Renetta Colon,Pippa I ?MR#: [id number] ?? [id number] ? : 1960 ?Acct:[id number] ? Age/Sex: 64 / F ?ADM Date: 05/13/25 ? Loc: HO.MAMMO ? Attending Dr: Edmund Valentino MD ? Ordering Physician: Edmund Valentino MD ?Results: 2Benign Fi ?? ndings ? Date of Service: 07/10/24 ?Follow Up: 1 Year From Orig ?? inal Mammogram ? Procedure(s): MM tomosynthesis screening BI ?? Accession Number(s): [id number] ? cc: Chelsy,Edmund HERNANDEZ ? EXAMINATION: ?? MM SCREENING DIGITAL BREAST TOMOSYNTHESIS, BILATERAL ? CLINICAL INFORMATION: ? Screening. Asymptomatic. ? COMPARISON: ?? Mammography: Comparison is made with available priors ? TECHNIQUE: ?? Digital breast mammography with tomosynthesis is performed in both the ?? craniocaudal and mediolateral oblique views along with computer-aided ?? detection (CAD). ? FINDINGS: ?? There are scattered areas of fibroglandular density (ACR BI-RADS breast ?? composition Category b). ?? Right marker clip. ?? Bilateral reduction mammoplasty changes. ?? There are no significant masses, abnormal calcifications, or other ?? abnormalities. ? MM/MM tomosynthesis screening BI ?? IMPRESSION: [...] due date for their next mammogram. ? Electronically signed by: ??Alicia Riley DO ??07/16/2024 05:54 PM EDT ?? RP ? Dictated By: ?Alicia Riley DO ? Signed By: ?<Electronically signed by Alicia Riley, DO in OV> ? 07/16/24 1754 ? DD/ 1430 ? TD/TT: 07/10/24 1455 ? Senior Merchandiser: ? Procedure Note Donotuseinterpreter, Image - 07/16/2024 [facility] [address] [place] [address] Mammography Report Signed Patient: Pippa Camilo IMR#: [id number] : 1960Acct:[id number] Age/Sex: 64 / FADM Date: 07/10/24 Loc: HO.MAMMO Attending Dr: Edmund Valentino MD Ordering Physician: Edmund Valentino MDResults: 2Benign Fi ndings Date of Service: 07/10/24Follow Up: 1 Year From Orig inal Mammogram Procedure(s): MM tomosynthesis screening BI Accession Number(s): [id number] cc: Edmund Valentino MD EXAMINATION: MM SCREENING DIGITAL BREAST TOMOSYNTHESIS, BILATERAL CLINICAL INFORMATION: Screening. Asymptomatic. COMPARISON: Mammography: Comparison is made with available priors TECHNIQUE: Digital breast mammography with tomosynthesis is performed in both the craniocaudal and mediolateral oblique views along with computer-aided detection (CAD). FINDINGS: There are scattered areas of fibroglandular density (ACR BI-RADS breast composition Category b). Right marker clip. Bilateral reduction mammoplasty changes. There are no significant masses, abnormal calcifications, or other abnormalities. MM/MM tomosynthesis screening BI IMPRESSION: No mammographic evidence of malignancy. ASSESSMENT: BI-RADS BI-RADS 2 - Benign Findings RECOMMENDATION: Routine annual mammography screening. 1 year F/U This examination should not preclude the clinical evaluation of a suspicious palpable abnormality. This patient's information was entered into a reminder system with a target due date for their next mammogram. Electronically signed by: Alicia Riley DO 07/16/2024 05:54 PM EDT Dictated By: Alicia Riley DO Signed By: <Electronically signed by Alicia Riley DO in OV> 07/16/24 2964 DD/ 1430 TD/TT: 07/10/24 1455 Senior Merchandiser: Edmund Valentino MD IMG BI PROCEDURES Final Result documented in this encounter Visit Diagnoses Not on filedocumented in this encounter Additional Health Concerns Assessment Noted Time PHQ-9 Depression Total Score: 0 07/29/19 24 9:26 AM EDT documented as of this encounter Care Teams Clerical Investigator Relationship Specialty Start Date End Date Name, MD Edmund [address] [place] [address] PCP - General Family Medicine 04/04/15 documented as of this encounter
--- OUTSIDE RECORDS SUMMARY | 2024-07-17 12:16 | XMS_ITS | Encounter Summary ---
Author Organization [employer] [facility] Address 75 [facility] 7t [place] [address] Care Team Providers Care Industrial Nurse Name Role Phone Name, Edmund HERNANDEZ Primary Care Provider [phone] Reason for Visit * Reason Comments Med Refill Encounter Details Date Type Department Care Team ([facility] st Contact Info) Description 05/06/2023 Refill [facility] MEDICINE [address] [place], [place] [phone] Name, MD Edmund [address] [place] [address] Social History Tobacco Use Types Packs/Day Years Used Date Smoking Tobacco: Never Smokeless Tobacco: Never Alcohol Use Standard Drinks/Week Comments Never 0 (1 standard drink = 0.6 oz pur e alcohol) Housing Stability Answer Date Recorded What is your housing situation today? I have aron feng 05/09/[address] you li [...] t he electric, gas, oil or water [employer] threatened to shut off services in your [...] on filedocumented in this encounter Care Teams Industrial Nurse Relationship Specialty Start Date End Date Name, MD Edmund [address] [place] [address] PCP - General Family Medicine 04/04/15 documented as of this encounter
--- OUTSIDE RECORDS SUMMARY | 2024-07-17 12:16 | XMS_ITS | Encounter Summary ---
Author Organization [employer] Address [address] [place] [address] [address] Care Team Providers Care Electromechanisms Design Drafter Name Role Phone Name, Edmund HERNANDEZ Primary Care Provider [phone] Encounter Details Date Type Department Care Team (Late st Contact Info) Description 08/19/2022 Abstract [facility] MEDICINE [address] [place], [place] [phone] Name, MD Edmund [address] [place] [address] Social History Tobacco Use Types Packs/Day Years [...] on filedocumented in this encounter Care Teams Electromechanisms Design Drafter Relationship Specialty Start Date End Date NameEdmund MD [address] [place] [address] PCP - General Family Medicine 04/04/15 documented as of this encounter
--- OUTSIDE RECORDS SUMMARY | 2024-07-17 12:16 | XMS_ITS | Encounter Summary ---
Author Organization [employer] Address 75 [facility] 7t [place] [address] Care Team Providers Care Fluid Pump Operator Name Role Phone Name, Edmund HERNANDEZ Primary Care Provider [phone] Reason for Visit * Reason Comments Med Refill Encounter Details Date Type Department Care Team ([facility] st Contact Info) Description 01/19/2023 Refill [facility] CH[facility] MED & PEDS [address] [place], [place] [phone] Name, MD Edmund [address] [place] [address] Social History Tobacco Use Types Packs/Day Years [...] t he electric, gas, oil or water [employer] threatened to shut off services in your [...] on filedocumented in this encounter Care Teams Fluid Pump Operator Relationship Specialty Start Date End Date Name, MD Edmund [address] [place] [address] PCP - General Family Medicine 04/04/15 documented as of this encounter
--- OUTSIDE RECORDS SUMMARY | 2024-07-17 12:16 | XMS_ITS | Encounter Summary ---
Author Organization [employer] Address 75 [facility] 7 [place] [address] Care Team Providers Care Appointment Specialist Name Role Phone Name, Edmund HERNANDEZ Primary Care Provider [phone] Reason for Visit * Reason Comments Med Refill Encounter Details Date Type Department Care Team ([facility] st Contact Info) Description 10/04/2023 Refill [facility] MEDICINE [address] [place], [place] [phone] Name, MD Edmund [address] [place] [address] Mild intermittent asthma, unspecified whether complicated Social [...] documented as of this encounter Care Teams Appointment Specialist Relationship Specialty Start Date End Date Name, MD Edmund [address] [place] [address] PCP - General Family Medicine 04/04/15 documented as of this encounter
--- OUTSIDE RECORDS SUMMARY | 2024-07-17 12:16 | XMS_ITS | Encounter Summary ---
Author Organization [employer] Address 75 [facility] 7 [place] [address] Care Team Providers Care Opera Singer Name Role Phone Name, Edmund HERNANDEZ Primary Care Provider [phone] Reason for Visit * Reason Onset Date Comments Appointment Request 05/16/2023 Encounter Details Date Type Department Care Team ([facility] st Contact Info) Description 05/16/2023 Telephone [facility] MEDICINE [address] [place], [place] [phone] Name, MD Edmund [address] [place] [address] Appointment Request Social History Tobacco Use Types [...] to cancel and reschedule appt for 05/15 mortgage loan underwriter did cancel per patients request documented in this encounter Plan of Treatment Not on file documented as of this encounter Visit Diagnoses Not on filedocumented in this encounter Care Teams Opera Singer Relationship Specialty Start Date End Date Name, MD Edmund [address] [place] [address] PCP - General Family Medicine 04/04/15 documented as of this encounter
--- OUTSIDE RECORDS SUMMARY | 2024-07-17 12:16 | XMS_ITS | Encounter Summary ---
Author Organization [employer] Address [address] [place] [address] 7 [place] [address] Care Team Providers Care Institutional Nutrition Consultant Name Role Phone Name, Edmund HERNANDEZ Primary Care Provider [phone] Encounter Details Date Type Department Care Team (Latest Contact Info) Description 08/26/2020 Abstract [facility], Provider, DDS Social History Tobacco [...] on filedocumented in this encounter Care Teams Institutional Nutrition Consultant Relationship Specialty Start Date End Date Name, MD Edmund [address] [place] [address] PCP - General Family Medicine 04/04/15 documented as of this encounter
--- OUTSIDE RECORDS SUMMARY | 2024-07-17 12:16 | XMS_ITS | Encounter Summary ---
Author Organization [employer] Address [address] [place] [address] Care Team Providers Care Change Management Specialist Name Role Phone Name, Edmund HERNANDEZ Primary Care Provider [phone] Encounter Details Date Type Department Care Team (Late st Contact Info) Description 07/30/2022 Abstract [facility] MEDICINE [address] [place], [place] [phone] Name, MD Edmund [address] [place] [address] Social History Tobacco Use Types Packs/Day Years [...] on filedocumented in this encounter Care Teams Change Management Specialist Relationship Specialty Start Date End Date NameEdmund MD [address] [place] [address] PCP - General Family Medicine 04/04/15 documented as of this encounter
--- OUTSIDE RECORDS SUMMARY | 2024-07-17 12:16 | XMS_ITS | Encounter Summary ---
Author Organization [employer] Address [address] [place] [address] [address], [place] [address] Care Team Providers Care Day Care Center Director Name Role Phone Name, Edmund HERNANDEZ Primary Care Provider Encounter Details Date Type Department Care Team ([facility] st Contact Info) Description 09/02/2022 Abstract [facility] MEDICINE [address] [place], [place] [phone] Name, MD Edmund [address] [place] [address] Social History Tobacco Use Types Packs/Day Years [...] on filedocumented in this encounter Care Teams Day Care Center Director Relationship Specialty Start Date End Date Name, MD Edmund [address] [place] [address] PCP - General Family Medicine 04/04/15 documented as of this encounter
--- OUTSIDE RECORDS SUMMARY | 2024-07-17 12:16 | XMS_ITS | Encounter Summary ---
Author Organization [employer] Address 75 [facility] 7 [place] [address] Care Team Providers Care Catalogue Compiler Name Role Phone Name, Edmund HERNANDEZ Primary Care Provider [phone] Reason for Visit * Reason Comments Med Refill Encounter Details Date Type Department Care Team ([facility] st Contact Info) Description 01/27/2024 Refill [facility] MEDICINE [address] [place], [place] [phone] Beth Blanco, SALVATORE [address] [place] [address] Social History Tobacco Use Types Packs/Day Years [...] documented as of this encounter Care Teams Catalogue Compiler Relationship Specialty Start Date End Date Name, MD Edmund [address] [place] [address] PCP - General Family Medicine 04/04/15 documented as of this encounter
--- OUTSIDE RECORDS SUMMARY | 2024-07-17 12:16 | XMS_ITS | Encounter Summary ---
Author Organization [employer] [facility] Address [address] [place] [address] 7[place] [address] Care Team Providers Care Almond Blancher Hand Name Role Phone Name, Edmund HERNANDEZ Primary Care Provider [phone] Reason for Visit * Reason Onset Date Comments Pre OP 06/30/2022 Encounter Details Date Type Department Care Team ([facility] st Contact Info) Description 06/30/2022 Telephone [facility] MEDICINE [address] [place] [address] [phone] Name, MD Edmund [address] [place] [address] Pre OP Social History Tobacco Use Types [...] encounter Miscellaneous Notes * Telephone Encounter - aCrmita Elder RN - 07/09/2022 1:55 PM EDT Returned call to Bill regarding message below. Pt is having L foot tendon repair on 09/22/[address] Cobb at [facility]. Pt will be under general and popliteal [...] place order for EKG. Please contact at [phone] * Telephone Encounter - Julee Chung - 06/30/2022 1:46 PM EDT TC from Bill from [facility] requesting a PRE-OP Location: [address] Procedure: tendon repair Date of procedure: 09/22/22 @ 11:30am Labs: yes Ekg: yes Anesthesia Type : general and popliteal block Surgeon Name: donna tomlinson documented in this encounter Plan of Treatment Not on file documented as of this encounter Visit Diagnoses Not on filedocumented in this encounter Care Teams Almond Blancher Hand Relationship Specialty Start Date End Date Name, MD Edmund [address] [place] [address] PCP - General Family Medicine 04/04/15 documented as of this encounter
--- OUTSIDE RECORDS SUMMARY | 2024-07-17 12:16 | XMS_ITS | Clinical Summary ---
Author Organization [employer] Address [address] [facility] 7 [place] [address] Care Team Providers Care Warehouse Clerk Name Role Phone Name, Edmund HERNANDEZ Primary Care Provider [phone] Allergies Active Allergy Reactions Criticality Noted Date Comments Alprazolam Nausea And Vomiting,Other,Swell ing 03/06/2008 Patient describes that she had a withdrawal from this medication causing extreme anxiety and dificulty breathin. She denies an actual allergy to this medicine Aspirin Nausea And Vomiting,Swelling High 03/06/2008 Other reaction(s): OTHER LegacyRecord#[id number] Throat closing Green Dye High 11/15/2018 IV DYE Iodinated Contrast Media Nausea And Vomiting,Swelling 03/06/2008 Other reaction(s): arm swelling Other reaction(s): OTHER Throat closing Iodine High 04/04/2015 LegacyRecord#[id number] Tuberculin Ppd High 11/15/2018 Tuberculin Purified Protein Derivative 08/20/2022 Other reaction(s): ?reaction Tuberculin, Ppd 01/09/2013 LegacyRecord#[id number] Medications fluticasone (Flonase) 50 MCG/ACT nasal sprayIndication [...] 30 capsule 2 024 Active glucose blood (Picostorm Code LabsTouch Verio) test stripIndication s:Type 2 diabetes mellitus without complication, without long-term current use of insulin (CMS/[facility]) USE TO TEST BLOOD SUGAR ONCE A DAY 100 strip 11 024 Active hydrocortisone 2.5 % ointmentIndicat ions:Fissure in skin Apply topically 2 times daily. 20 g 024 Active OneTouch Delica Lancets 33G misc USE TO TEST BLOOD SUGAR EVERY DAY 100 each 5 024 Active metFORMIN (Glucophage) 500 MG tabletIndicatio ns:Type 2 diabetes mellitus without complication, without long-term current use of insulin (CMS/HCC) TAKE 1 TABLET BY ORAL ROUTE 2 TIMES EVERY DAY WITH MORNING AND EVENING MEALS 60 tablet 5 025 Active atorvastatin (Lipitor) 20 MG tabletIndicatio ns:Type 2 diabetes mellitus without complication, without long-term current use of insulin ([facility]) Take 1 tablet (20 mg) by mouth Once per day. 90 tablet 2 025 2024 Active loratadine (Claritin) 10 MG tabletIndicatio ns:Mild intermittent asthma, unspecified whether complicated Take 1 tablet (10 mg) by mouth Once per day. 90 tablet 1 025 Active Ventolin HFA 108 (90 Base) MCG/ACT [...] 07/10/19 25 11:29 AM EDT 025 Active Dulaglutide (Trulicity) 1.5 MG/0.5ML solution auto-injectorIn dications:Type 2 diabetes mellitus without complication, without long-term current use of insulin ([facility]) Inject 1.5 mg under the skin 1 (one) time per week. 2 mL 2 025 2025 Active levothyroxine (Synthroid, Levoxyl) 88 MCG tablet TAKE ONE TABLET BY MOUTH EVERY MORNING BEFORE BREAKFAST 90 tablet 1 024 2024 Discontinued Dulaglutide (Trulicity) 0.75 MG/0.5ML solution auto-injectorIn dications:Type 2 diabetes mellitus without complication, without long-term current use of insulin ([facility]/HCC) Inject 0.5 mL (0.75 mg) under the skin 1 (one) time per week. INJECT 0.5 ML SUBCUTANEOUSLY EVERY WEEK. 2 mL 5 024 2024 Discontinued(D ose adjustment) Ventolin HFA 108 (90 Base) MCG/ACT inhalerIndicati [...] Breast mass, left 04/19/2024 Muscle spasm 08/31/2023 Hair loss 08/31/2023 Assessment & Plan (09/06/2023 6:22 PM EDT): Reports chronic issue, referral to derm Osteopenia after menopause 07/30/2023 Assessment & Plan [...] aware that if helpful will meet with food storeroom clerk Health maintenance examination 06/05/2023 Hyperlipemia 08/20/2022 Assessment & Plan (06/28/2023 11:57 [...] Constipation 12/08/2018 Overview (08/20/2022): Overview Note: Constipation #[id number]# EXT_ID: [id number] Breast cancer 11/15/2018 Overview (08/20/2022): Right DCIS in 2015, on tamoxifen, 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 Assessment & Plan (2023 3:54 PM EDT): In close care with oncology, utd on mammogram Hypertrophic condition of skin 10/26/2018 Overview (08/20/2022): Overview Note: Hypertrophic disorders of skin #[id number]# EXT_ID: [id number] 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 Overview (08/20/2022): Overview Note: Monoarthritis, not elsewhere classified, knee #[id number]# EXT_ID: [id number] Assessment & Plan (2023 4:01 PM EDT): Trial tramadol, Medication Indications, side effects and duration of therapy reviewed, pt aware to call clinic for worsening symptoms or failure to resolve Dry eye syndrome 10/04/2018 Overview (08/20/2022): Overview Note: Dry eye syndrome #[id number]# EXT_ID: [id number] Pain in knee 10/04/2018 Overview (08/20/2022): Overview Note: Pain in knee #[id number]# EXT_ID: [id number] Intraductal carcinoma in situ of breast 08/04/19 19 Overview (08/20/2022): Overview Note: Intraductal carcinoma in situ of breast #[id number]# EXT_ID: [id number] Benign mammary dysplasia 08/01/2018 Overview (08/20/2022): Overview Note: Other benign mammary dysplasias #[id number]# EXT_ID: [id number] Mild persistent asthma 07/27/2018 Overview (08/20/2022): Overview Note: Mild intermittent asthma #[id number]# EXT_ID: [id number] Assessment & Plan (06/13/2023 2:10 PM EDT): Stable mild intermittent, seasonal allergies are triggers, Anxiety disorder 07/27/2018 Overview (08/20/2022): The patient follows with Dr Taylor Overview Note: Other anxiety disorders #[id number]# EXT_ID: [id number] Assessment & Plan (2023 3:55 PM EDT): Reports stable and well managed, continue current regimen Hypertension 07/27/2018 Overview (06/13/2023): At goal today, continue amlodipine and metoprolol, consider josefa or arb given concurrent dm, defer to pcp Joint pain 11/08/2017 Diabetes mellitus, type 2 05/21/2016 Overview (08/20/2022): Overview Note: Type 2 diabetes mellitus #[id number]# EXT_ID: [id number] Allergic rhinitis 05/21/2016 Assessment & Plan (2023 [...] Overview (08/20/2022): Overview Note: Carpal tunnel syndrome #[id number]# EXT_ID: [id number] Atypical lobular hyperplasia (ALH) of breast Overview (08/20/2022): Patient followed and [facility] and with Dr Avina. She was on Tamoxigen for 5 years Umbilical hernia 07/16/2011 Breast microcalcification, mammographic 01/09/20 11 Overview (08/20/2022): Biopsied in [place] 07-07-2009, fibrocystic disease. Acquired hypothyroidism 01/05/2011 Overview (08/20/2022): Overview Note: Other hypothyroidism #[id number]# EXT_ID: [id number] Assessment & Plan (06/28/2023 11:56 AM EDT): Reduce to 6 tablets weekly, repeat labs in 6 weeks IBS (irritable bowel syndrome) 10/03/2008 GERD (gastroesophageal reflux disease) 9 Helicobacter pylori infection 08/01/2008 Hiatal hernia 03/06/2008 Overview (04/06/2022): H/o helocobacter pylori Assessment & Plan (2023 3:50 PM EDT): Continue ppi , pantoprazole 40 mg Resolved Problems Problem Noted Date Diagnosed Date Resolved Date Hypothyroidism 08/31/2023 07/17/2024 Assessment & Plan (09/06/2023 6:21 PM EDT): Potential source of palpitations as pt was overcorrected, has reduced rx as prescribed, tsh today Hoarse voice quality 08/31/2023 025 Assessment & Plan (09/06/2023 6:22 PM EDT): Referral to ent, Bradycardia 08/20/2022 07/17/2024 Bradycardia by electrocardiogram 08/20/2022 07/17/2024 Shortness of breath 08/20/2022 12/06/19 24 Cough 12/08/2018 12/06/2023 Overview (08/20/2022): Overview Note: Cough #[id number]# EXT_ID: [id number] Major depressive disorder, recurrent 10/26/2018 06/29/2023 Overview (04/06/2022): Overview Note: Major depressive disorder, recurrent #[id number]# EXT_ID: [id number] Impaired fasting glucose 01/28/2011 Lung mass 01/08/2011 2023 Overview (08/20/2022): F/u recommended somewhere between 01/09 and 07/10 Abdominal pain 03/06/2008 12/06/2023 Overview (08/20/2022): Overview Note: Dorsalgia #[id number]# EXT_ID: [id number] Cervical spine disc herniation Overview Note: Other abdominal pain #[id number]# EXT_ID: [id number] Asthma 03/06/2008 12/06/2023 Assessment & Plan (07/30/2023 4:20 PM EDT): Recent exacerbation, no audible wheeze today, continue inhalers Assessment & Plan (2023 4:09 PM EDT): Continue current inhalers, seasonal allergies are trigger, monitor for increased albuterol usage Encounters Date Type Department Care Team Description 07/17/2024 10:00 AM EDT Office Visit [address] [address] Name, MD Edmund Type 2 diabetes mellitus without complication, without long-term current use of insulin ([facility]) (Primary Dx); DJD (degenerative joint disease), lumbosacral; Chronic midline low back pain without sciatica 07/17/2024 Travel 07/16/2024 Telephone [facility] [address] [place] [address] [phone] Adrianna Ratliff MA Chart Prep 07/10/2024 Orders Only [facility] [address] [place] [phone] NameEdmund MD 07/03/[address] [phone] Edmund Valentino MD Medication Question; Med Refill 06/29/2024 Refill [facility] [address] [place] [phone] Edmund Valentino MD Mild intermittent asthma, unspecified whether complicated 06/11/2024 11:20 AM EDT Office Visit [facility] [address] [place] [phone] Freda Mauricio MD Subacute pansinusitis (Primary Dx); Body aches; Allergic rhinitis, unspecified seasonality, unspecified trigger 06/11/2024 Travel 05/16/2024 2:00 PM EDT [facility] [address] [place] [phone] Shona Blandon NP Dysphagia, unspecified type (Primary Dx); Cough in adult patient; Persistent cough; Hoarseness of voice; Lymphadenopathy of left cervical region 05/11/2024 1:20 PM EDT [facility] [address] [address] Yaa Daly MD History of strep pharyngitis (Primary Dx); Mild intermittent asthma, unspecified whether complicated; Neck pain on left side 05/11/2024 Travel 04/19/2024 10:45 AM EST Office Visit [address] [address] Alyssa Sandra MD Chronic bilateral low back pain with left-sided sciatica (Primary Dx) 04/19/2024 9:45 AM EST Office Visit [address] [address] Edmund Valentino MD Type 2 diabetes mellitus without complication, without long-term current use of insulin ([facility]) (Primary Dx); Acquired hypothyroidism; Strep [...] t he electric, gas, oil or water [employer] threatened to shut off services in your [...] Mass Index 30.17 07/17/2024 10:26 AM EDT Plan of Treatment Health Maintenance Due [...] Dental X-Ray: Full Mouth 08/28/2023 08/26/2020, 04/01 Lipid Panel 06/06/2024 06/07/2023, 04/21/2020 Alcohol/Substance Use Screening 08/30/2024 08/31/2023 Diabetes: Hemoglobin A1C 10/17/2024 025, 12/06/2023, 06/07/2023, Additional history exists Diabetes: Foot Exam 12/05/2024 12/06/2023, 12/06/2023, 12/06/2023, Additional history exists Diabetes: Urine Protein Screening 12/05/2024 12/06/2023, 05/19/2022, 04/21/2020, Additional history exists Eye Exam 03/29/2025 03/29/2023 Mammogram 07/10/2025 07/10/2024, 05/0 08/2023, 2022, Additional history exists Depression Screening 07/17/2025 07/17/2024, 07/18/19 25 Disability Screening 07/17/2025 07/17/2024 SDOH Screening 07/17/2025 07/17/2024 Tobacco Screening 07/17/2025 07/17/2024 Colonoscopy 05/06/2026 05/06/2021 Colorectal Cancer Screening 05/06/2026 DTaP/Tdap/Td Vaccines (3 - Td or Tdap) 12/05/2033 12/06/2023, 03/15/2011 Zoster Vaccines Completed 01/30/2020, 12/01/2019 Pneumococcal Vaccine: 50+ Years Completed 07/29/2023, 11/13/2020, 07/24/2014 COVID-19 Vaccine Completed 11/02/2023, 04/2022, 06/16/2021, Additional history exists Influenza Vaccine Completed 11/02/2023, , 11/10/2021, Additional history exists HIB Vaccines Aged Out [...] complication, without long-term current use of insulin ([facility]) POCT GLUCOSE Routine 07/17/2024 10:27 AM EDT Type 2 diabetes mellitus without complication, without long-term current use of insulin ([facility]) BI MAMMOGRAM SCREENING TOMOSYNTHESIS BILATERAL Routine 07/10/2024 2:30 PM EDT AMB REFERRAL TO ENT Routine 06/26/2024 Hoarse [...] without long-term current use of insulin (CMS/HCC) ALBUMIN, RANDOM URINE W/CREATININE Routine 12/06/2023 10:00 AM EDT Type 2 diabetes mellitus without complication, without long-term current use of insulin (CMS/HCC) LIPID PANEL, STANDARD Routine 06/07/2023 11:34 AM EDT Type 2 diabetes mellitus without complication, without long-term current use of insulin (CMS/HCC) HM DIABETES EYE EXAM Routine 03/29/2023 HM COLONOSCOPY Routine 05/06/2021 PROPHYLAXIS - ADULT Routine 08/26/2020 1 2:00 AM EDT INTRAORAL - COMPLETE SERIES OF RADIOGRAPHIC IMAGES Routine 08/26/2020 12:00 AM EDT PERIODIC ORAL EVALUATION - ESTABLISHED PATIENT Routine 08/26/2020 12:00 AM EDT from Last 3 Months or Most Recently Relevant to Health Maintenance Results * (ABNORMAL) POCT HGB A1C (07/17/2024 10:28 AM EDT) Hemoglobin A1C 7.4(A) 4.0 - 6.0 % QC Media Lot # [id number] Lot# Expiration Date ,027 Blood 07/17/2024 10:2 8 AM EDT us Edmund Valentino MD POINT OF CARE TEST ENTER/EDIT OR DERABLES Final Result * POCT Glucose (07/17/2024 10:27 AM EDT) Only the most recent of2 resultswithin the time period is included. Glucose Blood, POC 127 60 - 200 mg/dL QC Media Lot # [id number] Lot# Expiration Date Blood Capillary blood specimen / Unknown 07/17/2024 10:27 AM EDT us Edmund Valentino MD POINT OF CARE TEST ENTER/EDIT OR DERABLES Final Result * BI Mammogram Screening Tomosynthesis Bilateral (07/10/2024 2:30 PM EDT) Anatomical Region Laterality Modality Breast Bilateral Mammography 07/10/2024 2:30 PM EDT Narrative 07/16/2024 5:58 PM EDT ? [facility] ? [address] ?[place] [address] ?[phone] ? Mammography Report ? Signed ? Patient: Renetta Colon,Pippa I ?MR#: [id number] ?? [id number] ? : 1960 ?Acct:[id number] ? Age/Sex: 64 / F ?ADM Date: 05/13/25 ? Loc: HO.MAMMO ? Attending Dr: Edmund Valentino MD ? Ordering Physician: Edmund Valentino MD ?Results: 2Benign Fi ?? ndings ? Date of Service: 07/10/24 ?Follow Up: 1 Year From Orig ?? inal Mammogram ? Procedure(s): MM tomosynthesis screening BI ?? Accession Number(s): [id number] ? cc: Chelsy,Edmund HERNANDEZ ? EXAMINATION: ?? [...] DD/ 1430 ? TD/TT: 07/10/24 1455 ? Gauntlet Pairer: ? Procedure Note Joanie, Perfecto - 07/16/2024 [facility] [address] [place] [address] Mammography Report Signed Patient: Pippa Camilo IMR#: [id number] : 1960Acct:[id number] Age/Sex: 64 / FADM Date: 07/10/24 Loc: FEMIO Attending Dr: Edmund Valentino MD Ordering Physician: Edmund Valentino MDResults: 2Benign Fi ndings Date of Service: 07/10/24Follow Up: 1 Year From Orig inal Mammogram Procedure(s): MM tomosynthesis screening BI Accession Number(s): [id number] cc: Edmund Valentino MD EXAMINATION: MM SCREENING [...] Alicia Riley DO 07/16/2024 05:54 PM EDT RP Dictated By: Alicia Riley DO Signed By: <Electronically signed by Alicia Riley DO in OV> 07/16/24 1754 DD/ 1430 TD/TT: 07/10/24 1455 Gauntlet Pairer: Edmund Valentino MD IMG BI PROCEDURES Final Result * Referral to ENT (06/26/2024) Shona Blandon FENCE ERECTOR OUTPATIENT REFERRAL ORDERABLES Final Result * POCT Rapid Influenza B HUMPHREY ID NOW (06/11/2024 11:44 AM EDT) Only the most recent of3 resultswithin the time period is included. Influenza B Negative Negative, Indeterminate [facility] QC Media Lot # [id number] [facility] Lot# Expiration Date [facility] Swab 06/11/2024 11:4 4 AM EDT Freda Mauricio MD POINT OF CARE TEST ENTER /EDIT ORDERABLES Final Result [facility] [address] [place] [phone] * POCT Rapid Influenza A HUMPHREY ID NOW (06/11/2024 11:44 AM EDT) Only the most recent of3 resultswithin the time period is included. Influenza A Negative Negative, Indeterminate [facility] QC Media Lot # [id number] [facility] Lot# Expiration Date [facility] Swab 06/11/2024 11:4 4 AM EDT Freda Mauricio MD POINT OF CARE TEST ENTER /EDIT ORDERABLES Final Result [facility] [address] [facility] [place] [address] [phone] * POCT Rapid Covid-19 BinaxNOW (06/11/2024 11:38 AM EDT) Only the most recent of2 resultswithin the time period is included. Rapid COVID Ag Negative QC Media Lot # [id number] Lot# Expiration Date [id number] Swab 06/11/2024 11:3 8 AM EDT us Freda Mauricio MD POINT OF CARE TEST ENTER /EDIT ORDERABLES Final Result * XR Chest 2 Views (05/17/2024 11:56 AM EDT) Anatomical Region Laterality Modality Chest Radiographic Suzanne ging 05/17/2024 11:5 6 AM EDT Narrative 05/17/2024 12:27 PM EDT ?[facility] ?[address] ?[place] [address] ?XRay Report ? Signed ? Patient: Renetta Colon,Pippa I ?MR#: [id number] ?? [id number] ? : 1960 ?Acct:[id number] ? Age/Sex: 63 / F ?ADM Date: 05/17/24 ? Loc: HO.HHCX ? Attending Howie Blandon ? Ordering Physician: Shona Blandon ?? Date of Service: 05/17/24 ?? Procedure(s): XR chest 2V ?? Accession Number(s): [id number] ? cc: Shona Blandon ? EXAMINATION: ??XR [...] DD/ 1156 ? TD/TT: 05/17/24 1206 ? Gauntlet Pairer: ? Procedure Note Donlisa, Image - 05/17/[address] [address] XRay Report Signed Patient: Pippa Camilo IMR#: [id number] : 1960Acct:[id number] Age/Sex: 63 / FADM Date: 05/17/24 [facility] Att[facility] Dr: Shona Blandon Ordering Physician: Shona Blandon Date of Service: 05/17/24 Procedure(s): XR chest 2V Accession Number(s): [id number] cc: Shona Blandon EXAMINATION: XR CHEST 2 [...] 05/17/24 1224 DD/ 1156 TD/TT: 05/17/24 1206 Gauntlet Pairer: Shona Blandon FENCE ERECTOR IMG XR PROCEDURES Final Result * POCT COVID-19 Ag Humphrey ID NOW (05/16/2024 2:10 PM EDT) [facility] [address] Coronavirus Antigen PCR Negative Negative, Indeterminate, None Detected, Invalid, Specimen unsatisfactory for evaluation, Weakly Positive Swab 05/16/2024 2:10 PM EDT [facility] FENCE ERECTOR POINT OF CARE TEST ENTER/EDIT O RDERABLES Final Result * POCT rapid strep A manually resulted (05/16/2024 2:10 PM EDT) Only the most recent of2 resultswithin the time period is included. [facility] [address] Rapid Strep A Screen Negative Negative, None Detected Swab 05/16/2024 2:10 PM EDT [facility] POINT OF CARE TEST ENTER/EDIT O RDERABLES Final Result * T-SPOT??.TB (05/11/2024 2:13 PM EDT) Only the most recent of2 resultswithin the time period is included. [facility] [address] T Spot TB Negative Negative [facility] Comment:A negative test resu lt does [...] as aquantitative test. TS PANEL A 0 [facility] TS PANEL B 0 [facility] Negative Control Passed [facility] Positive Control Passed [facility] Comment:For additional infor mation, please refer tohttp://education.[employer]/faq/LJY770(This link is being provided for informational/educational purposes only.)THIS TEST WAS PERFORMED AT:[employer] [id number] [place] [address]KGXMOFVMICHELLE HALL MD,PHD 05/11/2024 2:13 PM EDT 05/11/2024 4:20 PM EDT us Edmund Valentino MD LAB BLOOD ORDERABLES Final Resul t Performing Organization Address City/[facility]/ZIP Co de Phone Number [facility] [address] [place], [place] [phone] * (ABNORMAL) Basic Metabolic Panel (05/11/2024 2:13 PM EDT) Sodium 142 135 - 145 mmol/L [facility] Potassium 3.7 3.3 - 5.1 mmol/L [facility] Chloride 104 96 - 108 mmol/L [facility] Carbon Dioxide 30(H) 22 - 29 mmol/L [facility] Anion Gap 12 12 - 20 [facility] Urea Nitrogen (BUN) 17(H) 9 - 16 mg/dL [facility] Creatinine, Serum 0.74 0.5 - 1.4 mg/dL [facility] Estimated Glomerular Filt Rate >60 [facility] Comment:Chronic Kidney Disea se: Estimated GFR < 60 mL/min/1.77c6Ndoxpk Kidney Disease: Estimated GFR < 15 mL/min/1.73m2 Glucose 110 60 - 115 mg/dL [facility] Calcium 10.4(H) 8.4 - 10.2 mg/dL [facility] Blood Venous blood specimen / Unknown 05/11/2024 2:13 PM EDT 05/11/2024 4:20 PM EDT us Yaa Daly MD LAB BLOOD ORDERABLES Final Re sult [facility] [address] [place] [phone] * TSH W/Reflex to FT4 (04/19/2024 10:25 AM EST) TSH reflex Free T4 2.19 0.32 - 4.0 uIU/mL [facility] Blood Venous blood specimen / Unknown 04/19/2024 10:25 AM EST 04/19/2024 11:36 AM EST us Edmund Valentino MD LAB BLOOD ORDERABLES Final Resul t Performing Organization Address [facility] Phone Number [facility] [address] [place] [phone] * Albumin, Random Urine W/Creatinine (12/06/2023 10:00 AM EDT) Creatinine, Urine 123.16 mg/dL [facility] Microalbumin Urine 11.0 mg/L [facility] Microalbum Creatinine Ratio Ur 8.9 <30 ug/mg cr [facility] Comment:Albumin/Creatinine R atio Reference Ranges: Normal: < 30 ug/mg creatinine Microalbuminuria: 30 - 300 ug/mg creatinineClinical Albuminuria: > 300 ug/mg creatinine Urine (Urine, Random) 12/06/2023 10:00 AM EDT 12/06/2023 11:23 AM EDT us Edmund Valentino MD LAB URINE ORDERABLES Final Resul t Performing Organization Address [facility] Co de Phone Number [facility] [address] [place] [phone] * (ABNORMAL) Lipid Panel, Standard (06/07/2023 11:34 AM EDT) Triglycerides 125 <150 mg/dL [facility] Comment:Desirable Triglyceri de: less than 150 mg/dLBorderline High Triglyceride 150-199 mg/dLHigh Triglyceride: 200-499 mg/dLVery High Triglyceride: greater than or equal to 5OO mg/dL Cholesterol 225(H) <200 mg/dL [facility] Comment:Desirable Cholestero l: less than 200 mg/dLBorderline High Cholesterol: 200-239 mg/dLHigh Cholesterol: greater than 239 mg/dL LDL Cholesterol Calculated 141(H) <100 mg/dL [facility] Comment:Desirable LDL: less than 100 mg/dLNear Optimal/Above Optimal LDL: 110- 129 mg/dLBorderline High LDL: 130-159 mg/dLHigh LDL: 160-189 mg/dLVery High LDL: greater than or equal to 190 mg/dL HDL Cholesterol 59 >40 mg/dL [facility] Comment:Desirable HDL: great er than 40 mg/dL Note: This HDL assay may give artificially low results in patients with liver disease. Blood Venous blood specimen / Unknown 06/07/2023 11:34 AM EDT 06/07/2023 1:12 PM EDT Beth Blanco FENCE ERECTOR LAB BLOOD ORDERABLES Final Resul t [facility] [address] [place], [place] [phone] * Diabetes Eye Exam (03/29/2023) Eye Exam Normal Normal 03/29/2023 Edmund Valentino MD HEALTH MAINTENANCE Final Result * Colonoscopy (05/06/2021) Colonoscopy Normal Normal Narrative Rita Jimenez - 05/06/2021 Recommended 5 year follow up Historical Provider HEALTH MAINTENANCE Final Result from Last 3 Months or Most Recently Relevant to Health Maintenance Insurance [facility] ONE CARE < 65 [place] [id number] Care Teams Warehouse Clerk Relationship Specialty Start Date End Date Name, MD Edmund [address] [place] [phone] PCP - General Family Medicine 04/04/15
--- OUTSIDE RECORDS SUMMARY | 2024-07-17 12:16 | XMS_ITS | Encounter Summary ---
Author Organization [email or web address] Address [address] [facility] 7 [place] [address] Care Team Providers Care Glass Driller Name Role Phone Name, Edmund HERNANDEZ Primary Care Provider [phone] Reason for Visit * Reason Comments Med Refill Encounter Details Date Type Department Care Team ([facility] st Contact Info) Description 01/06/2024 Refill [facility] MEDICINE [address] [place], [place] [phone] Beth Blanco, SALVATORE [address] [place] [address] Social History Tobacco Use Types Packs/Day Years [...] documented as of this encounter Care Teams Glass Driller Relationship Specialty Start Date End Date Name, MD Edmund [address] [place] [address] PCP - General Family Medicine 04/04/15 documented as of this encounter
--- OUTSIDE RECORDS SUMMARY | 2024-07-17 12:16 | XMS_ITS | Encounter Summary ---
Author Organization [employer] Address [address] [facility] 7 [place] [address] Care Team Providers Care Jazz Musician Name Role Phone Name, Edmund HERNANDEZ Primary Care Provider [phone] Reason for Visit * Reason Comments Med Refill Encounter Details Date Type Department Care Team ([facility] st Contact Info) Description 01/20/2024 Refill [facility] MEDICINE [address] [place], [place] [phone] Name, MD Edmund [address] [place] [address] Social History Tobacco Use Types Packs/Day Years [...] documented as of this encounter Care Teams Jazz Musician Relationship Specialty Start Date End Date Name, MD Edmund [address] [place] [address] PCP - General Family Medicine 04/04/15 documented as of this encounter
--- OUTSIDE RECORDS SUMMARY | 2024-07-17 12:16 | XMS_ITS | Encounter Summary ---
Author Organization [employer] Address [address] [facility] 7 [place] [address] Care Team Providers Care Rock Lather Name Role Phone Name, Edmund HERNANDEZ Primary Care Provider [phone] Reason for Visit * Reason Onset Date Comments Chart Prep 07/16/2024 Encounter Details Date Type Department Care Team ([facility] st Contact Info) Description 07/16/2024 Telephone [facility] MEDICINE [address] [place] [address] Adrianna Ratliff MA Chart Prep Social History Tobacco Use Types Packs/Day Years [...] encounter Miscellaneous Notes * Telephone Encounter - Adrianna Ratliff MA - 07/16/2024 9:38 AM EDT Chart Prep Labs: done Images: done Referrals: Radiology Pt has appointment on 07/30/24 at 2:30 pm Vaccines due: Zoster Screenings: mammogram, pap smear, and Lipid panel, HIV, Hep C Overdue care gaps: SDOH, PHQ-9, JEANNIE-7, Disability screen, and Tobacco documented in this encounter Plan of Treatment Not on file documented as of this encounter Visit Diagnoses Not on filedocumented in this encounter Additional Health Concerns Assessment Noted Time PHQ-9 Depression Total Score: 0 07/29/19 24 9:26 AM EDT documented as of this encounter Care Teams Rock Lather Relationship Specialty Start Date End Date Name, MD Edmund [address] [place] [address] PCP - General Family Medicine 04/04/15 documented as of this encounter
--- OUTSIDE RECORDS SUMMARY | 2024-07-17 12:16 | XMS_ITS | Data Portability ---
Author Organization [facility] [employer] Address [address] [place] [address] Care Team Providers Care Mis Manager Name Role Phone HIM CCA OTHER NAMECOREY Primary Care Provider Assessment Encounter Date Assessment Date Assessment LastModified by Organization Details LastModified Time 07/01/2024 07/01/2024 I provided real -time medical direction via phone for this encounter, and was available for additional phone based assistance as needed. I have reviewed and agree with the Assessment and Plan as documented by the Finance Manager. We discussed the diagnostic uncertainty of home [...] ED eval. Family verbalized understanding of instructions. [email or web address] Not available 07/01/2024 11:27:29 Plan of Treatment Reminders Order Date Submit Date Provider Last Modified By Organization Details Last Modified Time Details Appointments None recorded. Lab None recorded. Referral None recorded. Procedures None recorded. Surgeries None recorded. Imaging None recorded. Medication Orders lidocaine 5 % topical patch 2024 025 [id number], [address] [place], [place], [phone], 10:32:00 Patient TargetsNo targets recorded. Patient InstructionsNo instructions recorded. Reason for Referral None Reported. Medical Equipment None Reported. Allergies Allergen ID Allergen Name Allergen Category Reaction Reaction Severity Criticality Documentation Date Start Date Code Code System Note Provider Name and Address Organization Details Recorded Time 65846 purified protein derivativ e of tuberculi n medicatio n Not available Not available Not available 06/30/2024 1248 RxNorm Not Available [facility] - production 5 [...] Updated DateTime 5 79 /min 18 /min 96629.5 76 g 152.4 cm 95 % 95 [...] SNOMED-CT Code Diagnosis ICD10 Code Diagnosis Note [id number] SOMMER LIU NP, S Main - instED [address] [place] [phone] 07/01/2024 10:24:45 07/02/2024 00:12:40 Chronic low back pain [id number] M54.42 M54.41 G89.29 Patient has hx of [...] Hernandez Member ID Guarantor Name 06/30/2024 1 [facility] - DOS ON OR AFTER 2022 - DUAL ELIGIBLE - CORRECTION OPTIONS AND ONE CARE (MEDICARE REPLACEMENT/ADV ANTAGE - HMO) Pippa Jackson [id number] Pippa Jackson Notes Date Note Type Note [...] .................... .................... .................... .................... .................... .................... . Finance Manager Note From America Rose: [facility] makes pt contact. She opens the [...] Pt consents to evaluation and treatment today. [facility] obtains pt consent. Vitals signs are [...] swelling is noted bilaterally and is equal. [facility] contacts [facility] and discusses the above. [facility] recommends heat and ice, gentle stretching, and will prescribe a lidocaine gel or patch for pt. [facility] will also message pt's care team to request a refill of her tramadol. [facility] instructs pt to decrease her Tylenol [...] the development of saddle paralysis. Pt thanks [facility] for visit. [facility] is clear. Report completed by JUAN Rose [id number]. .................... .................... .................... .................... .................... .................... .................... . [facility] Consulted: Sommer Liu .................... .................... .................... .................... .................... .................... .................... . Disposition: Fulfilled SOMMER LIU NP, [address] [place] [address],[address], [place], [address], [employer] MORTENSEN 07/01/2024 11:44:34 OBGyn Episode No OBEpisode recorded.
--- OUTSIDE RECORDS SUMMARY | 2024-07-17 12:16 | XMS_ITS | Encounter Summary ---
Author Organization [employer] Address [address] [place] [address] [facility] [place] [address] Care Team Providers Care Electronic Assembly Name Role Phone Name, Edmund HERNANDEZ Primary Care Provider [phone] Encounter Details Date Type Department Care Team ([facility] st Contact Info) Description 09/07/2022 Abstract [facility] MEDICINE [address] [place], [place] [phone] Name, MD Edmund [address] [place] [address] Social History Tobacco Use Types Packs/Day Years [...] filedocumented in this encounter Care Teams Electronic Assembly Relationship Specialty Start Date End Date Name, MD Edmund [address] [place] [id number] PCP - General Family Medicine 04/04/15 documented as of this encounter
[2024-07-17 12:28] LABS: Cholesterol 265 mg/dL (<200); HDL Cholesterol 65 mg/dL (>40); LDL Cholesterol Calculated 175 mg/dL (<100); Triglycerides 127 mg/dL (<150)
[2024-07-17 12:33] LABS: Creatinine Urine 38.89 mg/dL; Microalbum/Creatinine Ratio Ur 12.8 ug/mg cr (<30)
== END 2024-07-17 11:00 | disposition home or self-care (01) ==
LOC: HO.HHCL 10:59
PROVIDERS: Visit Provider Internal Medicine Geriatric Medicine
DX: E11.9 Type 2 diabetes mellitus without complications (principal)
CPT/HCPCS: 36415; 80061; 82043; 82570

== ENCOUNTER 2024-07-24 07:51 | Outpatient (AMB) | payer OTHER, SELFPAY ==
--- OUTSIDE RECORDS SUMMARY | 2024-07-24 07:53 | XMS_ITS | Clinical Summary ---
Author Organization [facility] Address [address] [place] [address] Phone Care Team Providers Care Sliver Chopper Name Role Phone Name, Edmund HERNANDEZ Primary Care Provider [phone] Allergies Active Allergy Reactions Criticality Noted Date Comments Iodinated Contrast Media Nausea And Vomiting,Other,Swellin g 03/06/2008 Throat closing Medical History Medical History Date Comments Diabetes mellitus (CMS/HCC V24, CMS/[facility] V28) Disease of thyroid gland Tachycardia [...] mmol/L LAB CHEMISTRY METHOD 02/05/2024 3:56 PM [facility] Potassium 4.3 3.5 - 5.5 mmol/L LAB CHEMISTRY METHOD 02/05/2024 3:56 PM [facility] Chloride 110 96 - 110 mmol/L LAB CHEMISTRY METHOD 02/05/2024 3:56 PM [facility] CO2 26 21 - 32 mmol/L LAB CHEMISTRY METHOD 02/05/2024 3:56 PM [facility] Anion Gap 8 3 - 11 LAB CHEMISTRY METHOD 02/05/2024 3:56 PM [facility] Glucose 113(H) 70 - 100 mg/dL LAB CHEMISTRY METHOD 02/05/2024 3:56 PM [facility] BUN 12 5 - 25 mg/dL LAB CHEMISTRY METHOD 02/05/2024 3:56 PM [facility] Creatinine 0.76 0.50 - 1.10 mg/dL LAB CHEMISTRY METHOD 02/05/2024 3:56 PM [facility] eGFR 89 >=60 mL/min/1. 73m2 LAB CHEMISTRY METHOD 02/05/2024 3:56 PM [facility] Comment:Calculation based on the??Chronic Kidney Disease Epidemiology Collaboration (CKD-EPI) equation refit??without adjustment for race. BUN/Creatinine Ratio 15.8 LAB CHEMISTRY METHOD 02/05/2024 3:56 PM [facility] Calcium 10.2 8.5 - 10.5 mg/dL LAB CHEMISTRY METHOD 02/05/2024 3:56 PM [facility] AST (SGOT) 25 10 - 42 unit/L LAB CHEMISTRY METHOD 02/05/2024 3:56 PM [facility] ALT (SGPT) 31 10 - 60 unit/L LAB CHEMISTRY METHOD 02/05/2024 3:56 PM [facility] Alkaline Phosphatase 112 42 - 121 unit/L LAB CHEMISTRY METHOD 02/05/2024 3:56 PM [facility] Total Protein 7.1 6.0 - 8.0 g/dL LAB CHEMISTRY METHOD 02/05/2024 3:56 PM [facility] Albumin 3.8 3.2 - 5.0 g/dL LAB CHEMISTRY METHOD 02/05/2024 3:56 PM [facility] Total Bilirubin 0.4 0.0 - 1.4 mg/dL LAB CHEMISTRY METHOD 02/05/2024 3:56 PM [facility] Blood Venous blood specimen / Unknown Venipuncture / Unknown 02/05/2024 3:05 PM EST 02/05/2024 3:30 PM EST us Bowen Juarez MD LAB BLOOD ORDERABLES Nazanin l Result [facility] [address] [place] [address], * DX MAMMO INCL CAD BI (11/11/2016 [...] Most Recently Relevant to Health Maintenance Insurance [facility] MEDICARE Member Subscriber Plan / Payer (Ef fective 2020-Present) Name:Pippa Camilo I Relation to Subscriber:Self Name:Pippa Camilo I Payer ID:[id number] Group ID:[id number] Type:Not on file Address: [address] [facility] [place] [address] Care Teams Sliver Chopper Relationship Specialty Start Date End Date Name, MD Edmund [address] [place], [place] PCP - General Internal Medicine 02/07/08
--- NOTE | 2024-07-24 08:01 | MHC.OFFVIS ---
Intake Visit Reasons: 6m f/u Intake Note: Pt presents to the office today for a 6 month follow up/ urinary frequency/microscopic hematuria. Urology Meds:None Airborne Operations Required: Yes Airborne Operations Services: Airborne Operations Present Airborne Operations Name: [id number] Allergies tuberculin, purified protein deriva [TB TEST] Allergy (Severe, Verified 07/24/24 08:23) ANGIOEDEMA Medication List - Last Reconciled 07/24/24 by SILVESTRE PalaciosP- albuterol sulfate 90 mcg/actuation 2 puffs PO Q4-6H PRN amlodipine 5 mg PO DAILY cephalexin 500 mg PO Q8H 10 days dulaglutide (Trulicity) mg subcut duloxetine 30 mg PO DAILY fluticasone propionate 50 mcg/actuation 2 sprays intranasal DAILY fluticasone propionate 220 mcg/actuation (Flovent HFA) 2 puffs inhalation BID hydroxyzine pamoate 1 cap PO BID ketoconazole 2% 1 appl topical DAILY levothyroxine 88 mcg PO DAILY loratadine 1 tab PO DAILY metformin 1 tab PO QAM metoprolol tartrate 25 mg PO BID montelukast (Singulair) 1 tab PO BEDTIME omeprazole 1 cap PO DAILY trazodone 50 mg PO BEDTIME zaleplon 10 mg PO BEDTIME PRN HPI Comments Details: Pippa is American-speaking 64-year-old female patient of Dr. Valentino. She has a PMH of osteoarthritis of bilateral hips, urinary frequency, depression, anxiety, diabetes, asthma, fibromyalgia, and atypical lobular hyperplasia of breast. She presents to the office today for follow-up. Of note, patient underwent in office cystoscopy 01/[address]au for CT with a question of reported history of bladder cancer however patient denied such history. During in office cystoscopy patient with noted urethral syndrome and narrowing and was dilated with blue meatal dilator. In discussion with the patient today she does report noting over the last 24 hours lower abdominal pressure. She otherwise denies urinary urgency, urinary frequency, incontinence, nocturia, hematuria, dysuria, foul smelling urine, changes to urinary stream, flank pain, fever, and or chills. She is happy with her current voiding parameters. In office urinalysis results reviewed with the patient today. We discussed potential causes of bladder pressure. She also discusses wanting to establish gastroenterological care here at [facility] as she has transferred a lot of her care here. Previous workup has included a CT 12/21 noting no nephrolithiasis or hydronephrosis. No discrete focal renal parenchymal lesions. Numerous calcifications are noted associated to the right gonadal vasculature that are immediately adjacent to the right ureter limiting evaluation of ureteric calculi however within limitations no definite ureteric calculi seen and there is no hydroureter. The bladder is decompressed limiting evaluation. In office urinalysis results reviewed with the patient today. Negative leukocytes, negative nitrates, negative microscopic hematuria. We discussed further workup and/or treatment options of bladder pressure. However, patient would like to continue with surveillance monitoring at this time. We discussed bladder triggers/irritants. All questions were answered. She otherwise offers no other issues or concerns at this time. 01/21 urine cytology: Negative for high-grade urothelial carcinoma PFSH Medical History Pulmonary nodules STEVEN (obstructive sleep apnea) Asthma with COPD Allergic rhinitis Osteoarthritis, hip, bilateral Frequency of urination Hernia Depression Anxiety Heart disease Diabetes Asthma Fibromyalgia Atypical lobular hyperplasia (ALH) of breast Surgical History Hx of cardiac cath H/O rectal polypectomy History of carpal tunnel surgery Hx of toe surgery Hx of right knee surgery Hx of tonsillectomy History of appendectomy Hx of cholecystectomy H/O: hysterectomy Hx of section Family History Brother Heart disease Asthma Mother Family history of esophageal cancer Hypertension Asthma Lung cancer Father History of prostate cancer Asthma Paternal Aunt No problems noted. Paternal Grandfather Liver cancer Colon cancer Family/Other Stomach cancer Maternal Aunt Breast cancer Social History Household Members: None Housing: Apartment Are you a primary patient care nursing assistant to a significant other at home: No Do you presently have visiting nurse or other home services: No Alcohol intake: former Patient Tobacco Use Status: Never used Tobacco service: No Current occupational status: disabled Female Reproductive History Menstrual Age of Menarche: 15 Review of Systems Const All systems reviewed & are unremarkable except as noted in HPI and below Physical Exam Const General: cooperative, healthy appearing, comfortable, no acute distress, well developed, alert and awake Orientation/consciousness: patient oriented x3 Limitations: no limitations HEENT Head: Yes normal to inspection, Yes normocephalic and Yes atraumatic Ears: hearing grossly normal bilaterally Eyes General: appearance normal, both eyes and all related structures Neck Neck: Yes normal visual inspection and Yes trachea midline Chest Chest palpation & inspection: normal inspection of the chest Resp Effort & Inspection: normal respiratory effort and able to speak in complete sentences Cardio Rate: regular rate GI Inspection: Yes normal to inspection General: Yes no CVA tenderness Back/Spine/Pelvis Back: no CVA tenderness Skin General skin exam: no rashes or lesions noted Neuro General: patient oriented x3 Extrem General: Yes normal to inspection Psych Appearance: grossly normal and well kempt Mental Status: mental status grossly normal Speech and movement: Normal speech and movement present and Clear speech present Affect: normal affect Attitude: cooperative Thought process: Normal thought process present Thought content: Normal thought content present Insight: Fair insight present (Psych) Judgement: Fair judgement present (Psych) Results AMB Urinalysis, Automated UA Leukoctes 0 Joe/uL Last Edit by Erika Garcia CMA on 07/24/24 08:09 UA Nitrite Negative Last Edit by Erika Garcia CMA on 07/24/24 08:09 UA Urobilinogen 0.2 mg/dL Last Edit by Erika Garcia CMA on 07/24/24 08:09 UA Protein 0 mg/dL Last Edit by Erika Garcia CMA on 07/24/24 08:09 UA pH 6.0 Last Edit by Erika Garcia CMA on 07/24/24 08:09 UA Blood 0 Chepe/uL Last Edit by Erika Garcia CMA on 07/24/24 08:09 UA Specific Malone 1.010 Last Edit by Erika Garcia CMA on 07/24/24 08:09 UA Ketone Negative Last Edit by Erika Garcia CMA on 07/24/24 08:09 UA Bilirubin 0 mg/dL Last Edit by Erika Garcia CMA on 07/24/24 08:09 UA Glucose 0 mg/dL Last Edit by Erika Garcia CMA on 07/24/24 08:09 Results Reviewed Results Reviewed: Laboratory Last Values Urine pH (Auto) 6.0 07/24/24 08:04 Specific Malone (Auto) 1.010 07/24/24 08:04 Urine Protein (Auto) 0 mg/dL 07/24/24 08:04 Glucose (UA)(Auto) 0 mg/dL 07/24/24 08:04 Urine Ketones (Auto) Negative 07/24/24 08:04 Urine Blood (Auto) 0 Chepe/uL 07/24/24 08:04 Urine Nitrite (Auto) Negative 07/24/24 08:04 Urine Bilirubin (Auto) 0 mg/dL 07/24/24 08:04 Urine Urobilinogen (Auto) 0.2 mg/dL 07/24/24 08:04 Leukocyte Esterase (Auto) 0 Joe/uL 07/24/24 08:04 Assessment & Plan Assessment & Plan (1) Sensation of pressure in bladder area: Code(s): R39.89 - Other symptoms and signs involving the genitourinary system Category: Medical (2) Frequency of urination: Code(s): R35.0 - Frequency of micturition Category: Medical Plan In office urinalysis results reviewed with the patient today; as noted above. We discussed potential causes of bladder pressure as well as further workup in risks and benefits of these interventions. Will continue with surveillance monitoring at this time. She reports be happy with current voiding parameters. Will refer to gastroenterology per patient request. We discussed bladder triggers/irritants. We discussed calling office if bladder pressure continues; for further assessment evaluation as well as workup. Follow-up in 6 months with [facility]; or sooner with any issues, concerns, and or questions. Orders: Orders AMB Urinalysis Automated Today R35.0 - Frequency of micturition Referrals Gastroenterology Referral K63.5 - Polyp of colon Patient Instructions: The patient had an opportunity to ask questions regarding the treatment plan. All questions were answered. Physical exam, labs, and imaging were discussed and reviewed in detail. As well as risks, benefits, and discussion of treatment choices. No major barriers to understanding were identified. The patient expressed understanding and agreement with the above treatment plan. The patient was made aware they should contact our office by phone for worsening of their current condition, the appearance of new symptoms, or with any questions or concerns. Compliance is encouraged with any medications and follow up testing that is ordered. It is a privilege to be allowed the opportunity to participate in? your urological care.? Again, if you have any questions or concerns If you have any questions or concerns please do not hesitate to contact me. The office is [phone]. This note is constructed using voice recognition software. While every effort has been made to ensure accuracy contact center director errors may have been included. Yours sincerely, ANISH Palacios Coding Level of Care Code Est Pt Level 3 (61355) Diagnoses Sensation of pressure in bladder area R39.89 Frequency of urination R35.0
== END 2024-07-24 08:23 | disposition home or self-care (01) ==
LOC: HO.HUSH 07:52
PROVIDERS: PCP Internal Medicine Geriatric Medicine; Visit Provider Nurse Practitioner Family
DX: R39.89 Other symptoms and signs involving the genitourinary system (principal); R35.0 Frequency of micturition
CPT/HCPCS: 99213

== ENCOUNTER → 2024-07-24 08:33 | Outpatient (REF) | payer OTHER, SELFPAY | LOC: HO.CARD 08:33 | PROVIDERS: PCP Internal Medicine Geriatric Medicine; Visit Provider Internal Medicine | DX: R00.2 Palpitations (principal); R39.89 Other symptoms and signs involving the genitourinary system; R35.0 Frequency of micturition | CPT/HCPCS: 81003; 93242; 99212 ==

== ENCOUNTER → 2024-07-24 08:36 | Outpatient (BNV) | payer OTHER, SELFPAY | PROVIDERS: PCP Internal Medicine Geriatric Medicine; Visit Provider Internal Medicine Cardiovascular Disease | DX: R00.0 Tachycardia, unspecified (principal) | CPT/HCPCS: 93244 ==

== ENCOUNTER 2024-07-30 14:26 | Outpatient (REF) | payer OTHER, SELFPAY ==
--- NOTE | ~2024-07-30 | FL_ITS ---
EXAMINATION: XR BARIUM SWALLOW CLINICAL INFORMATION: Dysphagia COMPARISON: None available. TECHNIQUE: Routine modified barium swallow was performed under lateral fluoroscopy with administration of various consistencies of food coated with barium in presence of speech therapist. FINDINGS: Following oral administration of thin barium, nectar consistency barium and cracker with barium paste, there is normal propagation bolus from the oral cavity, pharynx and esophagus. No laryngeal penetration or aspiration seen. Normal oral mastication seen with solid food. FLUOROSCOPY TIME: 55 seconds. DOSE AREA PRODUCT: 620.8 uGy-m2 (microgray-meter squared) FL/FL Modified Barium Swallow IMPRESSION: Unremarkable modified barium swallow exam. Correlate with speech therapy report. Electronically signed by: Christiano Vela MD 07/31/2024 07:26 AM EDT
--- NOTE | 2024-07-30 15:28 | MHC.SL.IMP ---
Date of Plan of Treatment: 07/30/24 Onset of Symptoms/Illness: 07/31/23 Date Treatment Started: 07/30/24 Admitting Diagnosis: Dysphagia, unspecified type (R13.10) Primary Speech & Language Diagnosis: R13.13 Pharyngeal Phase Dysphagia Reason for Today's Visit: 68308 Modified Barium Swallow Study Pre-evaluation Dietary Consistencies: Regular Pre-evaluation Liquid Consistency: Thin Pre-evaluation Medication Administration: Whole with Liquid Medical History: Modified Barium Swallow Study Fluoroscopic Evaluation of Swallowing Function CPT Code 25525 Evaluation Year: 2024 Reason for Study: Difficulty swallowing Referring Physician: Adam Blandon NP Evaluating Clinician: Neha Alvarado MA, CCC-[employer] INSTALL[facility] Study Number: 1 Patient Name: Pippa Dean Status: Outpatient, Ambulatory Age: 64 Sex: Female Medical History Medical History Pulmonary nodules STEVEN (obstructive sleep apnea) Asthma with COPD Allergic rhinitis Osteoarthritis, hip, bilateral Frequency of urination Hernia Depression Anxiety Heart disease Diabetes Asthma Fibromyalgia Atypical lobular hyperplasia (ALH) of breast Surgical History Hx of cardiac cath H/O rectal polypectomy History of carpal tunnel surgery Hx of toe surgery Hx of right knee surgery Hx of tonsillectomy History of appendectomy Hx of cholecystectomy H/O: hysterectomy Hx of section Current (pre-evaluation) Intake/Diet: Route: PO Diet Grade: Regular Liquid Consistencies: Thin Pre-Study Functional Oral Intake Scale (FOIS): 7- Total oral intake with no restrictions Pain: None reported at time of study SUBJECTIVE: Patient is a 64 year old female referred for a modified barium swallow study (MBSS) by Adam Blandon NP from the [facility]. Patient reports globus sensation on certain foods, especially bread and eggs. She says she needs to follow with sips of water in order to clear the food in her throat. Patient reports onset of dysphagia approximately one year ago. Around this time, she noticed changes to her voice and pain in her throat on the left side while singing for religious. She also started getting ear infections on the left side, which were treated with antibiotics. Patient?s past medical history is significant for pulmonary nodules, obstructive sleep apnea, asthma with COPD, allergic rhinitis, hernia, and fibromyalgia. Oral Motor Exam Facial Symmetry: Symmetrical Mouth Occlusion: Normal Oral-Facial Teeth Characteristics: Intact/Normal Partially Missing Oral-Facial Teeth Miscellaneous Observation: 2 missing molars seen Oral-Facial Lip Pucker Description: Normal Oral-Facial Smile (Lips) Description: Normal Tongue Size: Normal Tongue Excursion Description: Normal Tongue Range of Movement Description: Normal Tongue Speed of Movement Description: Normal Tongue Strength of Movement (against opposing pressure): Normal Tongue Movement Characteristics: Normal/Absent Food and Liquid Trials: Oral Impairment: Lip Closure: 1=Interlabial escape; no progression to anterior tip Oral Impairment: Tongue Control During Bolus Hold: 0=Cohesive bolus between tongue to palatal seal Oral Impairment: Bolus Preparation/Mastication: 0=Timely and efficient chewing and mashing Oral Impairment: Bolus Transport/Lingual Motion: 1= Delayed initiation of tongue motion Oral Impairment: Oral Residue: 2=Residue collection on oral structures Oral Impairment:Initiation of Pharyngeal Swallow: 1=Bolus head in valleculae Pharyngeal Impairment: Soft Palate Elevation: 0=No bolus between soft palate (SP)/pharyngeal wall (PW) Pharyngeal Impairment: Laryngeal Elevation: 1=Partial thyroid cartilage/arytenoids to epiglottic petiole movement Pharyngeal Impairment: Anterior Hyoid Excursion: 1=Partial anterior movement Pharyngeal Impairment: Epiglottic Movement: 0=Complete inversion Pharyngeal Impairment: Laryngeal Vestibular Closure:: 0=Complete: no air/contrast in laryngeal vestibule Pharyngeal Impairment: Pharyngeal Stripping Wave: 0=Present: complete Pharyngeal Impairment: Pharyngeal Contraction: Did not test Pharyngeal Impairment: Pharyngoesophageal Segment Openin=Complete distension and complete duration: no obstruction of flow Pharyngeal Impairment: Tongue Base (TB) Retraction: 2=Narrow column of contrast/air between TB and posterior PW Pharyngeal Impairment: Pharyngeal Residue: 1=Trace residue within or on pharyngeal structures Pharyngeal Impairment: Esophageal Clearance Upright Position: Did not test Impressions and Recommendations Clinical Observations: OBJECTIVE: Time-out: performed at 14:50 Evaluation Start: 14:35; Stop: 14:40 Patient Positioning: Standing Viewing Planes: LATERAL ONLY Contrast: MBSImP? Standardized Protocol using commercially prepared, standardized Barium viscosities, including: Varibar? THIN LIQUID (40% w/v, <15 cps) , Varibar? PUDDING (40% w/v, <2447-5429 cps) , 1/2 Shortbread Cookie (1 x1 x.25 ) MBSImP ID: [id number] [facility] Results: Lip closure for intraoral bolus containment resulted in interlabial escape, without progression to the anterior lip. Tongue control during bolus hold maintained a cohesive bolus held between tongue to palate seal. Bolus preparation and mastication resulted in timely and efficient chewing and mashing. Bolus transport/lingual motion demonstrated delayed initiation of tongue motion. Oral residue was a collection on oral structures. Initiation of the pharyngeal swallow occurred when the bolus head was in the valleculae. Soft palate elevation resulted in no bolus between the soft palate and the pharyngeal wall. Laryngeal elevation was decreased, with partial superior movement of the thyroid cartilage/partial approximation of the arytenoids to the epiglottic petiole. Anterior hyoid excursion demonstrated partial anterior movement. Epiglottic movement resulted in complete inversion. Laryngeal vestibular closure was complete, as indicated by no air or contrast within the laryngeal vestibule at the height of the swallow. Pharyngeal stripping wave was present and complete. Pharyngeal contraction could not be determined due to logistical reasons not related to physiologic impairment. Pharyngoesophageal segment opening was completely distended for complete duration with no obstruction of bolus flow. Tongue base retraction allowed a narrow column of contrast or air between the retracted tongue base and the posterior pharyngeal wall. Pharyngeal residue was a trace within or on pharyngeal structures. Esophageal clearance in the upright position could not be assessed due to logistical reasons not related to physiologic impairment. Oral Impairment Score: 4 Pharyngeal Impairment Score: 4 (absence of score, component 13) Esophageal Impairment Score: --- (absence of score, component 17) Laryngeal Penetration and Aspiration: Neither penetration nor aspiration was observed in today's study with Cookie, Pudding-thick, Thin. ASSESSMENT: This exam was performed by the radiologist and the speech pathologist. Patient was standing for lateral view only and fed herself without difficulty. She trialed thin (individual cup sips, sequential cup sips), puree, and regular solid textures. There as trace contrast escaping in the interlabial space but no anterior spillage beyond the chintan border. Patient demonstrated good tongue control, maintaining cohesive bolus without posterior spilling. Mastication was timely and efficient. Delayed onset of lingual motion, with brisk movement. There was mild residue coating the tongue, which cleared on secondary swallows. Pharyngeal swallow trigger initiated as the bolus head reached the valleculae. No evidence of nasopharyngeal reflux. Partial laryngeal elevation with partial anterior hyoid excursion. Complete epiglottic inversion and complete laryngeal vestibular closure. No evidence of aspiration or penetration during this exam. Trace residue in the valleculae cleared with secondary swallows. Liquid Intake Recommendation: Thin Liquid Intake Strategies: Unrestricted Dietary Recommendations: Regular Medication Administration: Whole with Liquid Please contact the pharmacy regarding appropriate crushable or liquid drug formulations that are available whenever modified delivery is recommended. Compensatory Strategies Recommended: Sitting Upright (90 deg), Small Bites and Sips, Rate of Ingestion Change Recommendation for Speech Therapy: NA:Typical Evaluation Text Comment: Intake Recommendations: Route: PO Diet Grade: Regular Liquid Consistencies: Thin Post-Study Functional Oral Intake Scale (FOIS): 7- Total oral intake with no restrictions Overall unremarkable exam. Trace to mild residue seen in the oral and pharyngeal cavities, which cleared on self-initiated secondary swallows. No evidence of aspiration or penetration. Suggested Referrals: The patient might benefit from a referral to: Otolaryngology Indication for Referral: Patient reports changes to her voice, throat pain, hx ear infections Therapy Recommendations: Recommend patient continue with unmodified diet. Dysphagia treatment is not warranted at this time, as patient?s swallow is deemed functional. Clinician - Supplemental, Miscellaneous Communication: It is important to note MBSS objective studies are snapshots in time and Patient function might vary with factors such as time of day or concomitant medical conditions. For this reason, the final treatment plan for this patient should rest with their medical care team. Additional recommendations should be considered with the totality of the Patient in mind. Thank for the opportunity to participate in the care of this patient. If you have any questions about the content of this report, please contact the [facility] at [facility]. Education: Education regarding findings from today's study and plans for therapy were provided to Patient only through Verbal Instruction. Understanding was expressed by the Patient only. Cargo And Ramp Services Manager Clinician/Clinical Fellow: No Supervisory Statement: N/A Speech Language Pathologist: Neha Alvarado M.A., [facility]
== END 2024-07-30 14:27 | disposition home or self-care (01) ==
LOC: HO.XRAY 14:26
PROVIDERS: PCP Internal Medicine Geriatric Medicine; Visit Provider Nurse Practitioner
DX: R13.10 Dysphagia, unspecified (principal)
CPT/HCPCS: 74230; 92611

== ENCOUNTER → 2024-07-30 14:28 | Outpatient (BNV) | payer OTHER, SELFPAY | PROVIDERS: PCP Internal Medicine Geriatric Medicine; Visit Provider Radiology Diagnostic Radiology | DX: R13.10 Dysphagia, unspecified (principal) | CPT/HCPCS: 74230 ==

== ENCOUNTER 2024-08-09 06:19 | Outpatient (REF) | payer OTHER, SELFPAY | END 2024-08-09 06:20 | disposition home or self-care (01) | LOC: CF 06:19 | PROVIDERS: Visit Provider Internal Medicine | DX: M16.0 Bilateral primary osteoarthritis of hip (principal) | CPT/HCPCS: 20611; J2795; J3301 ==

== ENCOUNTER 2024-08-09 10:51 | Outpatient (AMB) | payer OTHER, SELFPAY ==
--- NOTE | 2024-08-09 12:26 | MHC.OFFVIS ---
Vital Signs 08/09/24 12:39 BP 121/81 Blood Pressure Location Lt brachial Position Sitting Respiration 16 Pulse 69 Pulse Source Pulse Oximeter Pulse Oximetry (%) 98 Oxygen Delivery Method Room Air Intake Visit Reasons: LEFT HIP INJECTION Allergies tuberculin, purified protein deriva (TB TEST) Allergy (Severe, Verified 08/15/24 09:58) ANGIOEDEMA HPI HPI LEFT HIP INJECTION: Details: Patient presents for scheduled procedure. Denies any recent cough, cold, infection, fever or other significant changes in medical history since last office visit. PFSH Medical History Pulmonary nodules STEVEN (obstructive sleep apnea) Asthma with COPD Allergic rhinitis Osteoarthritis, hip, bilateral Frequency of urination Hernia Depression Anxiety Heart disease Diabetes Asthma Fibromyalgia Atypical lobular hyperplasia (ALH) of breast Surgical History Hx of cardiac cath H/O rectal polypectomy History of carpal tunnel surgery Hx of toe surgery Hx of right knee surgery Hx of tonsillectomy History of appendectomy Hx of cholecystectomy H/O: hysterectomy Hx of section Family History Brother Heart disease Asthma Mother Family history of esophageal cancer Hypertension Asthma Lung cancer Father History of prostate cancer Asthma Paternal Aunt No problems noted. Paternal Grandfather Liver cancer Colon cancer Family/Other Stomach cancer Maternal Aunt Breast cancer Social History Household Members: None Housing: Apartment Are you a primary career services manager to a significant other at home: No Do you presently have visiting nurse or other home services: No Alcohol intake: former Patient Tobacco Use Status: Never used Tobacco service: No Current occupational status: disabled Female Reproductive History Menstrual Age of Menarche: 15 Physical Exam Vital Signs: Last Vital Signs Pulse 69 08/09/24 12:39 Resp 16 08/09/24 12:39 BP 121/81 08/09/24 12:39 Pulse Ox 98 08/09/24 12:39 Oxygen Delivery Method Room Air 08/09/24 12:39 Office Procedures AMB Joint Injection/Aspiration Joint Injection/Aspiration Details: Hip Intra-articular Injection, Ultrasound guided, Left After informed written consent was obtained, the patient was placed in the supine position. The skin was prepped with Chloroprep, and draped in a sterile fashion. With the use of ultrasound the hip joint was identified. A 22-gauge 3.5 spinal needle was then advanced toward the junction of the joint capsule and femoral neck. Once in position, and after negative aspiration, 40mg Kenalog mixed with 0.5% ropivacaine (3mL total). There was no evidence of paresthesias throughout needle placement. The stylet was replaced and then the needle was withdrawn. The patient tolerated the procedure well and there was no evidence of procedural complications. US image saved to patients record. EBL: <1cc Coding 14262 - Large joint Procedure code (CPT) selection complete Assessment & Plan Assessment & Plan (1) Osteoarthritis, hip, bilateral: Code(s): M16.0 - Bilateral primary osteoarthritis of hip Category: Medical Qualifiers: Osteoarthritis type: primary Qualified Code(s): M16.0 - Bilateral primary osteoarthritis of hip Plan Patient is status post US guided L hip injection. Patient tolerated procedure well and was discharged home in stable condition with discharge instructions. All questions were answered. We will follow-up via telephone or in clinic to assess response to therapy. A follow-up appointment was made during today's visit. Orders: Orders FL guidance in treatment room 08/09/24 M16.0 - Bilateral primary osteoarthritis of hip Coding Level of Care Code Procedure Only Diagnoses Primary osteoarthritis of both hips M16.0 Osteoarthritis type: primary CPT Codes Coding - 36049 Large joint: 16731 - Large joint ([id number])
[2024-08-09 12:39] VITALS: BP 121/81; PULSE 69; RESP 16; O2SAT 98
== END 2024-08-09 12:42 | disposition home or self-care (01) ==
LOC: HO.PMCPRC 10:51
PROVIDERS: PCP Internal Medicine Geriatric Medicine; Visit Provider Internal Medicine
DX: M16.0 Bilateral primary osteoarthritis of hip (principal)
CPT/HCPCS: 20611

== ENCOUNTER 2024-08-15 09:32 | Outpatient (AMB) | payer OTHER, SELFPAY ==
--- NOTE | 2024-08-15 09:43 | MHC.OFFVIS ---
Vital Signs 08/15/24 09:44 Height 5 ft Weight 152 lb BMI 29.7 BP 124/70 Blood Pressure Location Lt brachial Position Sitting Pulse 69 Pulse Source Pulse Oximeter Pulse Oximetry (%) 98 Oxygen Delivery Method Room Air Intake Visit Reasons: Pulmonary Nodules/PFT Follow Up Intake Note: pt is here for follow up and states she had some small issue with her breathing in am, but that it works its way out., she does get short of breath with walking. Medical Records Administrator Services: Medical Records Administrator Present Medical Records Administrator Name: [id number] Allergies tuberculin, purified protein deriva (TB TEST) Allergy (Severe, Verified 08/15/24 09:58) ANGIOEDEMA Medication List - Last Reconciled 08/15/24 by Josi Stone MD albuterol sulfate 90 mcg/actuation 2 puffs PO Q4-6H PRN amlodipine 5 mg PO DAILY dulaglutide (Trulicity) mg subcut duloxetine 30 mg PO DAILY fluticasone propionate 50 mcg/actuation 2 sprays intranasal DAILY fluticasone propionate 220 mcg/actuation (Flovent HFA) 2 puffs inhalation BID hydroxyzine pamoate 1 cap PO BID ketoconazole 2% 1 appl topical DAILY levothyroxine 88 mcg PO DAILY loratadine 1 tab PO DAILY metformin 1 tab PO QAM metoprolol tartrate 25 mg PO BID montelukast (Singulair) 1 tab PO BEDTIME omeprazole 1 cap PO DAILY trazodone 50 mg PO BEDTIME zaleplon 10 mg PO BEDTIME PRN HPI HPI Pulmonary Nodules/PFT Follow Up: Details: This 64 years old Bulgarian-speaking female is here for follow-up after her pulmonary function test. He does have longstanding history of bronchial asthma and allergic rhinitis. She has been using Advair HFA 2 puffs b.i.d.. But I had told her last time that she does not need to use all the time, and we were going to review the results of her pulmonary function test. She does have ongoing nasal congestion with some sneezing and postnasal drip due to allergic rhinitis and it is controlled very well with the current medical regimen. She is also known to have small pulmonary nodule which are benign looking , but would need ongoing monitoring. [facility] Medical History Pulmonary nodules STEVEN (obstructive sleep apnea) Asthma with COPD Allergic rhinitis Osteoarthritis, hip, bilateral Frequency of urination Hernia Depression Anxiety Heart disease Diabetes Asthma Fibromyalgia Atypical lobular hyperplasia (ALH) of breast Surgical History Hx of cardiac cath H/O rectal polypectomy History of carpal tunnel surgery Hx of toe surgery Hx of right knee surgery Hx of tonsillectomy History of appendectomy Hx of cholecystectomy H/O: hysterectomy Hx of section Family History Brother Heart disease Asthma Mother Family history of esophageal cancer Hypertension Asthma Lung cancer Father History of prostate cancer Asthma Paternal Aunt No problems noted. Paternal Grandfather Liver cancer Colon cancer Family/Other Stomach cancer Maternal Aunt Breast cancer Social History Household Members: None Housing: Apartment Are you a primary livestock caretaker to a significant other at home: No Do you presently have visiting nurse or other home services: No Alcohol intake: former Patient Tobacco Use Status: Never used Tobacco service: No Current occupational status: disabled Female Reproductive History Menstrual Age of Menarche: 15 Review of Systems Const All systems reviewed & are unremarkable except as noted in HPI and below Eyes Reports no additional complaints ENT Reports dizziness (Intermittent nonspecific), Reports nasal congestion (Chronic intermittent) and Reports neck mass (Complains of some nodes on the side of the neck off and on) Card Denies chest pain, Denies irregular heart rhythm and Denies leg edema Resp Reports as per HPI GI Reports heartburn (Intermittent treated with omeprazole) Reports no additional complaints Musc Reports back pain and Reports myalgias (As history of fibromyalgia) Skin/Breast Reports system reviewed and no additional complaints, except as documented Neuro Reports dizziness (Intermittent nonspecific) Psych Reports anxiety Endo Reports other (Diabetes M and hypothyroidism) Buster/Lymph Reports lymphadenopathy (History of large cervical lymph nodes off and on) Aller/Immun Reports no additional complaints Physical Exam Vital Signs: Last Vital Signs Pulse 69 08/15/24 09:44 BP 124/70 08/15/24 09:44 Pulse Ox 98 08/15/24 09:44 Oxygen Delivery Method Room Air 08/15/24 09:44 BMI result Body Mass Index 29.7 Const General: healthy appearing, comfortable, no acute distress, alert and awake Orientation/consciousness: patient oriented x3 HEENT Head: Yes normal to inspection General nose exam: No nasal polyps present and No nasal discharge present Face and sinus: Yes sinuses nontender Mouth: oropharynx normal Throat: Yes posterior oropharynx normal Eyes General: appearance normal, both eyes and all related structures Neck Neck: Yes normal visual inspection, Yes no lymphadenopathy, Yes trachea midline and Yes no JVD Thyroid: Thyroid normal Chest Chest palpation & inspection: normal inspection of the chest, normal palpation of entire chest wall and no tenderness Resp Other: Percussion note is resonant, she has good breath sounds on both sides but they are relatively distant with prolonged expiratory phase. No audible wheezes or rhonchi. Cardio Palpation: normal PMI Rate: regular rate Rhythm: regular rhythm Heart sounds: no gallops and no murmurs Peripheral pulses: Peripheral pulses 2+ throughout GI Palpation (GI): Soft to palpation, nontender, No hepatosplenomegaly present and no masses Auscultation: normal bowel sounds Back/Spine/Pelvis Thoracic/Lumbar Spine: thoracic and lumbar spine normal to inspection Skin General skin exam: no rashes or lesions noted Neuro General: patient oriented x3 and no focal motor deficits Cranial nerves: Yes CN's II-XII intact bilaterally Extrem General: Yes normal to inspection, Yes no clubbing, cyanosis or edema and Yes no calf tenderness Psych Appearance: grossly normal and well kempt Speech and movement: Normal speech and movement present Results Reviewed Results Reviewed: Pulmonary function test performed on 07/05/2024. Essentially normal and does not show any significant obstructive or restrictive lung disorder. Explained to the patient. Assessment & Plan Assessment & Plan (1) Asthma with COPD: Comment: Patient has symptoms of intermittent cough and describes to get short of breath on exertion. She has been on treatment with Advair and albuterol. Pulmonary function test, does not show any significant obstructive or restrictive lung disease and also no positive response to bronchodilator therapy. Code(s): J44.89 - Other specified chronic obstructive pulmonary disease Category: Medical Plan: Explained to the patient about her normal pulmonary function test . She may still have a mild intermittent bronchial asthma. Advised to use albuterol HFA 2 puffs Q 4-6 hours only p.r.n. if she has any cough spells or wheezing. Does not need to use Advair on a regular basis. Patient was asking to have a note to have increased services by OUTSOLE SCHEDULER. I explained to her that on the basis of her lung disease he does not need any increased services. (2) Pulmonary nodules: Comment: Previous CT scan at [facility] as well as at [facility] have shown multiple small pulmonary nodules, size 4-5 mm, nonspecific and most likely benign. She is a nonsmoker, so she is not a high risk patient. Last CT scan at [facility] was in January 2024 . Code(s): R91.8 - Other nonspecific abnormal finding of lung field Category: Medical Plan: We may opt to do annual CT scan at least for a few times, Will consider ordering a CT scan on her next visit . (3) STEVEN (obstructive sleep apnea): Comment: Patient does have history of poor sleep at night. .She is moderately obese She did have sleep study at [facility] showing moderately severe obstructive sleep apnea and she was actually started on BiPAP therapy. She could not tolerate the wearing of the mask, , made her suffocated and she quit using the BiPAP. She sticks to sleeping in right lateral position and say is that she gets good sleep, and denies any frequent awakening or daytime sleepiness. * at this time she claims that she is sleeping okay as long as she sleeps in the lateral position. Code(s): G47.33 - Obstructive sleep apnea (adult) (pediatric) Category: Medical Plan: No need of using the CPAP but try to lose a few more lb of weight, and always sleep in lateral position. (4) Allergic rhinitis: Comment: Patient has history of upper airway allergies for long time. She has been treated with montelukast, decongestants and antihistaminics. She describes frequent flare ups of nasal congestion postnasal discharge cough and throat irritation. Code(s): J30.9 - Allergic rhinitis, unspecified Category: Medical Plan: Continue to use Flonase 2 spray in each nostril daily Loratadine 10 mg once a day p.r.n. And montelukast 10 mg daily. Coding Level of Care Code Est Pt Level 3 (02899) Diagnoses Asthma with COPD J44.89 Pulmonary nodules R91.8 STEVEN (obstructive sleep apnea) G47.33 Allergic rhinitis J30.9
[2024-08-15 09:44] VITALS: BP 124/70; PULSE 69; O2SAT 98; BMI 29.7
--- OUTSIDE RECORDS SUMMARY | 2024-08-15 10:31 | XMS_ITS | Encounter Summary ---
Author Organization [employer] Address [address] 7 [place] [address] Care Team Providers Care Gear Room Keeper Name Role Phone Name, Edmund HERNANDEZ Primary Care Provider [phone] Reason for Visit * Reason Onset Date Comments mail appt slip 03/15/2024 Encounter Details Date Type Department Care Team ([facility] Contact Info) Description 03/15/[address] [facility] ADULT DENTAL [address] [place] [address] Lillie Witt mail appt slip Social History [...] Care Team (Late st Contact Info) Description 09/27/2024 2:30 PM EDT Office Visit [facility] MEDICINE [address] [place] [address] Meek Stevenson MD [address] [place] [address] documented as of this encounter Visit Diagnoses Not on filedocumented in this encounter Additional Health Concerns Assessment Noted Time PHQ-9 Depression Total Score: 0 07/29/19 24 9:26 AM EDT documented as of this encounter Care Teams Gear Room Keeper Relationship Specialty Start Date End Date Name, MD Edmund [address] [place] [address] PCP - General Family Medicine 04/04/15 documented as of this encounter
== END 2024-08-15 10:00 | disposition home or self-care (01) ==
LOC: HO.HPS 09:33
PROVIDERS: PCP Internal Medicine Geriatric Medicine; Visit Provider Internal Medicine
DX: J44.89 Other specified chronic obstructive pulmonary disease (principal); R91.8 Other nonspecific abnormal finding of lung field; G47.33 Obstructive sleep apnea (adult) (pediatric); J30.9 Allergic rhinitis, unspecified
CPT/HCPCS: 99213

== ENCOUNTER → 2024-08-15 09:32 | Outpatient (BNVA) | payer OTHER, SELFPAY | PROVIDERS: PCP Internal Medicine Geriatric Medicine; Visit Provider Internal Medicine | DX: G47.33 Obstructive sleep apnea (adult) (pediatric) (principal); J30.9 Allergic rhinitis, unspecified; R91.8 Other nonspecific abnormal finding of lung field; J44.89 Other specified chronic obstructive pulmonary disease | CPT/HCPCS: 99212 ==

== ENCOUNTER 2024-08-24 11:05 | Outpatient (AMB) | payer OTHER, SELFPAY ==
--- NOTE | 2024-08-24 11:15 | MHC.OFFVIS ---
Vital Signs 08/24/24 11:18 Height 5 ft Weight 151 lb BMI 29.5 BP 130/78 Blood Pressure Location Lt brachial Position Sitting Respiration 16 Pulse 96 Pulse Source Pulse Oximeter Pulse Oximetry (%) 97 Oxygen Delivery Method Room Air Intake Visit Reasons: s/p left hip injection Soda Dry House Operator Required: Yes Soda Dry House Operator Services: Soda Dry House Operator Present Soda Dry House Operator Name: [id number] Erika Allergies tuberculin, purified protein deriva (TB TEST) Allergy (Severe, Verified 08/24/24 11:19) ANGIOEDEMA Medication List - Last Reconciled 08/24/24 by Lottie Villarreal LPN albuterol sulfate 90 mcg/actuation 2 puffs PO Q4-6H PRN amlodipine 5 mg PO DAILY dulaglutide (Trulicity) mg subcut duloxetine 30 mg PO DAILY fluticasone propionate 220 mcg/actuation (Flovent HFA) 2 puffs inhalation BID hydroxyzine pamoate 1 cap PO BID ketoconazole 2% 1 appl topical DAILY levothyroxine 88 mcg PO DAILY loratadine 1 tab PO DAILY metformin 1 tab PO QAM metoprolol tartrate 25 mg PO BID montelukast (Singulair) 1 tab PO BEDTIME omeprazole 1 cap PO DAILY trazodone 50 mg PO BEDTIME zaleplon 10 mg PO BEDTIME PRN HPI HPI s/p left hip injection: Details: History of Present Illness The patient is a 64-year-old female presenting with greater trochanteric pain on the left side. The patient reports that her left hip pain has resolved following a previous intra-articular injection, but she continues to experience pain in the lateral thigh/greater trochanteric region on the left side. She has been pain-free in the hip area, except for the greater trochanteric region. The patient has a history of knee problems, which were previously managed with injections and gel treatments in [place]. She recalls a prior instance where a planned knee procedure was postponed due to elevated blood sugar levels. Pain Description - Location: Greater trochanteric region on the left side - Previous left hip pain resolved after injection - Pain-free in the hip area for many years, except for the greater trochanteric region Physical Exam - Left GT tenderness [facility] Medical History Pulmonary nodules STEVEN (obstructive sleep apnea) Asthma with COPD Allergic rhinitis Osteoarthritis, hip, bilateral Frequency of urination Hernia Depression Anxiety Heart disease Diabetes Asthma Fibromyalgia Atypical lobular hyperplasia (ALH) of breast Surgical History Hx of cardiac cath H/O rectal polypectomy History of carpal tunnel surgery Hx of toe surgery Hx of right knee surgery Hx of tonsillectomy History of appendectomy Hx of cholecystectomy H/O: hysterectomy Hx of section Family History Brother Heart disease Asthma Mother Family history of esophageal cancer Hypertension Asthma Lung cancer Father History of prostate cancer Asthma Paternal Aunt No problems noted. Paternal Grandfather Liver cancer Colon cancer Family/Other Stomach cancer Maternal Aunt Breast cancer Social History Household Members: None Housing: Apartment Are you a primary patient care provider to a significant other at home: No Do you presently have visiting nurse or other home services: No Alcohol intake: former Patient Tobacco Use Status: Never used Tobacco service: No Current occupational status: disabled Female Reproductive History Menstrual Age of Menarche: 15 Physical Exam Vital Signs: Last Vital Signs Pulse 96 08/24/24 11:18 Resp 16 08/24/24 11:18 BP 130/78 08/24/24 11:18 Pulse Ox 97 08/24/24 11:18 Oxygen Delivery Method Room Air 08/24/24 11:18 BMI result Body Mass Index 29.5 Assessment & Plan Assessment & Plan (1) Osteoarthritis, hip, bilateral: Code(s): M16.0 - Bilateral primary osteoarthritis of hip Category: Medical Qualifiers: Osteoarthritis type: primary Qualified Code(s): M16.0 - Bilateral primary osteoarthritis of hip (2) Bilateral hip pain: Code(s): M25.551 - Pain in right hip; M25.552 - Pain in left hip Category: Medical Plan Plan - Plan for a repeat greater trochanteric injection on the left side next week. Patient was informed and verbally consented to the use of an ambient scribe for clinic note documentation during this visit. Discussion Notes I discussed with the patient the plan to perform a repeat greater trochanteric injection on the left side next week. We agreed to schedule the procedure for Tuesday at 10 o'clock. Patient Instructions - Attend the scheduled injection appointment on Tuesday at 10 o'clock. Coding Level of Care Code Est Pt Level 3 (68814) Diagnoses Primary osteoarthritis of both hips M16.0 Osteoarthritis type: primary Bilateral hip pain M25.551; M25.552
[2024-08-24 11:18] VITALS: BP 130/78; PULSE 96; RESP 16; O2SAT 97; BMI 29.5
--- OUTSIDE RECORDS SUMMARY | 2024-08-24 12:19 | XMS_ITS | Encounter Summary ---
Author Organization [employer] Address [address] [facility] 7 [place] [address] Care Team Providers Care Head Men'S Tennis Coach Name Role Phone Name, Edmund HERNANDEZ Primary Care Provider [phone] Reason for Visit * Reason Onset Date Comments mail appt slip 03/15/2024 Encounter Details Date Type Department Care Team ([facility] Contact Info) Description 03/15/2024 Telephone [facility] ADULT DENTAL [address] [place] [address] Lillie Witt mail appt slip Social History [...] Description 09/27/2024 2:30 PM EDT Office Visit [facility] MEDICINE [address] [place] [address] Meek Stevenson MD [address] [place] [address] documented as of this encounter Visit Diagnoses Not on filedocumented in this encounter Additional Health Concerns Assessment Noted Time PHQ-9 Depression Total Score: 0 07/29/19 24 9:26 AM EDT documented as of this encounter Care Teams Head Men'S Tennis Coach Relationship Specialty Start Date End Date Name, MD Edmund [address] [place] [address] PCP - General Family Medicine 04/04/15 documented as of this encounter
== END 2024-08-24 11:53 | disposition home or self-care (01) ==
LOC: HO.PMC 11:06
PROVIDERS: PCP Internal Medicine Geriatric Medicine; Visit Provider Internal Medicine
DX: M16.0 Bilateral primary osteoarthritis of hip (principal); M25.551 Pain in right hip; M25.552 Pain in left hip
CPT/HCPCS: 99213

== ENCOUNTER → 2024-08-24 11:05 | Outpatient (BNVA) | payer OTHER, SELFPAY | PROVIDERS: PCP Internal Medicine Geriatric Medicine; Visit Provider Internal Medicine | DX: M16.0 Bilateral primary osteoarthritis of hip (principal); M25.551 Pain in right hip; M25.552 Pain in left hip | CPT/HCPCS: 99212 ==

== ENCOUNTER 2024-08-27 11:00 | Outpatient (RCR) | payer OTHER, SELFPAY | END 2024-10-04 09:40 | disposition home or self-care (01) | LOC: HO.PT 11:00 | PROVIDERS: PCP Internal Medicine Geriatric Medicine; Visit Provider Internal Medicine Geriatric Medicine | DX: M54.50 Low back pain, unspecified (principal); G89.29 Other chronic pain | CPT/HCPCS: 97110; 97161; 97162; 97535 ==

== ENCOUNTER 2024-08-29 09:54 | Outpatient (REF) | payer OTHER, SELFPAY ==
--- OUTSIDE RECORDS SUMMARY | 2024-08-29 10:18 | XMS_ITS | Clinical Summary ---
Author Organization [facility] Address [address] [place] [address] Phone Care Team Providers Care Hand Polisher Name Role Phone Name, Edmund HERNANDEZ Primary Care Provider [phone] Allergies Active Allergy Reactions Criticality Noted Date Comments Iodinated Contrast Media Nausea And Vomiting,Other,Swellin g 03/06/2008 Throat closing Medical History Medical History Date Comments Diabetes mellitus (CMS/HCC V24, CMS/[facility] V28) Disease of thyroid gland [...] 71 02/06/2024 8:13 AM EST Temperature 36.4 C (97.5 F) 02/06/2024 8:13 AM EST Respiratory Rate 19 02/06/2024 8:13 AM EST [...] (HGBA1C) 06/05/2024 12/06/2023 Depression Screening 07/28/2024 07/29/2023 Influenza Vaccine (#1) 2024 , 11/10/2021, 12/08/2018, Additional history exists Diabetes: Annual GFR (Glomerular Filtration Rate) 02/04/2025 02/05/2024 Hypertension/CHF/CAD Annual BMP Blood Test 02/04/2025 02/05/2024 Cholesterol Screening (Lipid Panel) 06/06/2028 06/07/2023 DTaP,Tdap,and Td Vaccines (3 - Td or Tdap) 12/05/2033 12/06/2023, 03/15/2011 Pneumococcal Vaccine: 50+ Years Completed 07/29/2023, 07/24/2014 Pneumococcal Vaccine: Pediatrics (0 to 5 Years) and At-Risk Patients (6 to 64 Years) Completed 07/29/2023, 07/24/2014 HIB Vaccines Aged Out No longer eligi [...] mmol/L LAB CHEMISTRY METHOD 02/05/2024 3:56 PM [facility] Potassium 4.3 3.5 - 5.5 mmol/L LAB CHEMISTRY METHOD 02/05/2024 3:56 PM [facility] Chloride 110 96 - 110 mmol/L LAB CHEMISTRY METHOD 02/05/2024 3:56 PM [facility] CO2 26 21 - 32 mmol/L LAB CHEMISTRY METHOD 02/05/2024 3:56 PM [facility] Anion Gap 8 3 - 11 LAB CHEMISTRY METHOD 02/05/2024 3:56 PM [facility] Glucose 113(H) 70 - 100 mg/dL LAB CHEMISTRY METHOD 02/05/2024 3:56 PM [facility] BUN 12 5 - 25 mg/dL LAB CHEMISTRY METHOD 02/05/2024 3:56 PM [facility] Creatinine 0.76 0.50 - 1.10 mg/dL LAB CHEMISTRY METHOD 02/05/2024 3:56 PM [facility] eGFR 89 >=60 mL/min/1. 73m2 LAB CHEMISTRY METHOD 02/05/2024 3:56 PM [facility] Comment:Calculation based on the Chronic Kidney Disease Epidemiology Collaboration (CKD-EPI) equation refit without adjustment for race. BUN/Creatinine Ratio 15.8 LAB CHEMISTRY METHOD 02/05/2024 3:56 PM [facility] Calcium 10.2 8.5 - 10.5 mg/dL LAB CHEMISTRY METHOD 02/05/2024 3:56 PM [facility] AST (SGOT) 25 10 - 42 unit/L LAB CHEMISTRY METHOD 02/05/2024 3:56 PM [facility] ALT (SGPT) 31 10 - 60 unit/L LAB CHEMISTRY METHOD 02/05/2024 3:56 PM [facility] Alkaline Phosphatase 112 42 - 121 unit/L LAB CHEMISTRY METHOD 02/05/2024 3:56 PM [facility] Total Protein 7.1 6.0 - 8.0 g/dL LAB CHEMISTRY METHOD 02/05/2024 3:56 PM [facility] Albumin 3.8 3.2 - 5.0 g/dL LAB CHEMISTRY METHOD 02/05/2024 3:56 PM [facility] Total Bilirubin 0.4 0.0 - 1.4 mg/dL LAB CHEMISTRY METHOD 02/05/2024 3:56 PM [facility] Blood Venous blood specimen / Unknown Venipuncture / Unknown 02/05/2024 3:05 PM EST 02/05/2024 3:30 PM EST us Bowen Juarez MD LAB BLOOD ORDERABLES Nazanin l Result [facility] [address] [place] [address], * DX MAMMO INCL CAD BI (11/11/2016 [...] are composed of fatty and fibroglandular tissue. No suspicious mass, architectural distortion or [...] Breast cancer risk category Low (<15%) Edmund Valentino MD IMG BI PROCEDURES Final Result from Last 3 Months or Most Recently Relevant to Health Maintenance Insurance [facility] MEDICARE Member Subscriber Plan / Payer (Ef fective 2020-Present) Name:Pippa Camilo I Relation to Subscriber:Self Name:Pippa Camilo I Payer ID:[id number] Group ID:[id number] Type:Not on file Address: [address] [facility] [place] [id number] Care Teams Hand Polisher Relationship Specialty Start Date End Date Name, MD Edmund [address] [place], [place] PCP - General Internal Medicine 02/07/08
--- OUTSIDE RECORDS SUMMARY | 2024-08-29 10:18 | XMS_ITS | Encounter Summary ---
Author Organization [employer] Address [address] [facility] 7 [place] [address] Care Team Providers Care Safety Risk Lead Name Role Phone Name, Edmund HERNANDEZ Primary Care Provider [phone] Reason for Visit * Reason Onset Date Comments Chart Prep 08/28/2024 Encounter Details Date Type Department Care Team ([facility] st Contact Info) Description 08/28/2024 Telephone [facility] MEDICINE [address] [place], [place] [phone] Name, MD Edmund [address] [place] [address] Chart Prep Social History Tobacco Use Types [...] encounter Miscellaneous Notes * Telephone Encounter - Marium Li [place] - 08/28/2024 10:08 AM EDT Chart Prep Labs: not applicable Images: not applicable Screenings: PAP and HIV screening Vaccines due: RSV in Pharmacy Due Referrals: Not Applicable Overdue care gaps: Glucose and Oral Health documented in this encounter Plan of Treatment Not on file documented as of this encounter Visit Diagnoses Not on filedocumented in this encounter Additional Health Concerns Assessment Noted Time PHQ-9 Depression Total Score: 0 07/18/19 25 10:30 AM EDT documented as of this encounter Care Teams Safety Risk Lead Relationship Specialty Start Date End Date Name, MD Edmund [address] [place] [address] PCP - General Family Medicine 04/04/15 documented as of this encounter
--- OUTSIDE RECORDS SUMMARY | 2024-08-29 10:18 | XMS_ITS | Encounter Summary ---
Author Organization [employer] [facility] Address [address] [place] [address] Care Team Providers Care Hairspring Fabrication Supervisor Name Role Phone Edmund Valentino MD Primary Care Provider Unavailabl e Encounter Details Date Type Department Care Team Description 10/23/2014 Refill Adult Medicine [address] [address] Name, MD Edmund Social History Tobacco Use [...] on filedocumented in this encounter Care Teams Hairspring Fabrication Supervisor Relationship Specialty Start Date End Date Edmund Valentino MD PCP - General Internal Medicine 01/28/11 documented as of this encounter
--- OUTSIDE RECORDS SUMMARY | 2024-08-29 10:18 | XMS_ITS | Data Portability ---
Author Organization [facility] Address [address] [place] [phone] Care Team Providers Care Line Fixer Name Role Phone HIM CCA OTHER NAME, COREY Primary Care Provider Assessment Encounter Date Assessment Date Assessment LastModified by Organization Details LastModified Time 07/01/2024 07/01/2024 I provided real -time medical direction via phone for this encounter, and was available for additional phone based assistance as needed. I have reviewed and agree with the Assessment and Plan as documented by the Drill Press Tender. We discussed the diagnostic uncertainty of home [...] ED eval. Family verbalized understanding of instructions. [email or web address] Not available 07/01/2024 11:27:29 Plan of Treatment Reminders Order Date Submit Date Provider Last Modified By Organization Details Last Modified Time Details Appointments None recorded. Lab None recorded. Referral None recorded. Procedures None recorded. Surgeries None recorded. Imaging None recorded. Medication Orders lidocaine 5 % topical patch 2024 025 [id number], [address], [place], [place], [id number], 10:32:00 Patient TargetsNo targets recorded. Patient InstructionsNo instructions recorded. Reason for Referral None Reported. Medical Equipment None Reported. Allergies Allergen ID Allergen Name Allergen Category Reaction Reaction Severity Criticality Documentation Date Start Date Code Code System Note Provider Name and Address Organization Details Recorded Time 32224 purified protein derivativ e of tuberculi n medicatio n Not available Not available Not available 06/30/2024 8948 RxNorm Not Available [facility] - production 5 [...] SEVERE PAIN active Not Available Not Available Not Available acetaminophe n 500 mg tablet TAKE 1 TABLET BY MOUTH EVERY 6 HOURS NEEDED FOR MILD PAIN active Not Available Not Available No t Available lidocaine 5 % topical patch active Not Available Not Available Not Available lidocaine HCl 3 % topical cream active Not Available Not Available Not Available hydrocortiso ne 2.5 % topical ointment APPLY TOPICALLY TWICE DAILY active Not Available Not Available Not Available loratadine 10 mg tablet TAKE 1 TABLET BY MOUTH EVERY DAY active Not Available Not Available No t Available amoxicillin 875 mg-potassium clavulanate 125 mg tablet TAKE 1 TABLET BY MOUTH TWICE DAILY FOR 10 DAYS active Not Available Not Available No t Available cyclobenzapr ine 5 mg tablet TAKE 1 TABLET BY MOUTH EVERY DAY AT BEDTIME NEEDED FOR MUSCLE SPASMS active Not Available Not Available No t Available Coricidin HBP Chest Congestion-C ough 10 mg-200 mg capsule TAKE 1 CAPSULE BY MOUTH EVERY 6 TO 8 HOURS active Not Available Not Available No t Available lidocaine 5 % topical ointment active Not Available Not Available Not Available Trulicity 1.5 mg/0.5 mL subcutaneous pen injector INJECT ONE PEN (=1.5MG) SUBCUTANEOU SLY ONCE A WEEK DIRECTED active Not Available Not Available No t Available Paxlovid 300 mg (150 mg x [...] Updated DateTime 5 79 /min 18 /min 28907.5 76 g 152.4 cm 95 % 95 % 98.4 [degF] 146 mm[Hg] 98 mm[Hg] Not Available [facility] - production 5 10:24:48 Social History None recorded. Functional Status None recorded. Mental Status None recorded. Family History Nothing Reported. Medical History No medical history recorded. Gynecological HistoryNo gynecological history recorded. Obstetrics History GPAL:G 0 P 0 0 0 0 Past Encounters Encounter ID Performer Location Encounter Start Date Encounter Closed Date Diagnosis/Indication Diagnosis SNOMED-CT Code Diagnosis ICD10 Code Diagnosis Note [id number] SOMMER LIU NP, [address] [facility] [address] [place] [phone] 07/01/2024 10:24:45 07/02/2024 00:12:40 Chronic low back pain [id number] M54.42 M54.41 G89.29 Patient has hx of [...] Hernandez Member ID Guarantor Name 06/30/2024 1 [facility] - DOS ON OR AFTER 2022 - DUAL ELIGIBLE - [employer] OPT[employer] AND ONE CARE (MEDICARE REPLACEMENT/ADV ANTAGE - HMO) Pippa Jackson [id number] Pippa Jackson Notes Date Note Type Note [...] PMH Reviewed at 06/30/2024: Allergies Reviewed at 06/30/2024: Comments: 64 y.o female complains of lower [...] .................... .................... .................... .................... .................... .................... . Drill Press Tender Note From [place] Rose: MARTA makes pt [...] Pt consents to evaluation and treatment today. [facility] obtains pt consent. Vitals signs [...] swelling is noted bilaterally and is equal. [facility] contacts [facility] and discusses the above. [facility] recommends heat and ice, gentle stretching, and will prescribe a lidocaine gel or patch for pt. [facility] will also message pt's care team to request a refill of her tramadol. [facility] instructs pt to decrease her [...] the development of saddle paralysis. Pt thanks [facility] for visit. [facility] is clear. Report completed by JUAN Rose [id number]. .................... .................... .................... .................... .................... .................... .................... . [facility] Consulted: Sommer Liu .................... .................... .................... .................... .................... .................... .................... . Disposition: Fulfilled SOMMER LIU NP, [address] [facility], [place], [phone], [place] 07/01/2024 11:44:34 OBGyn Episode No OBEpisode recorded.
[2024-08-29 12:33] LABS: Alanine Aminotransferase 24 U/L (0-31); Albumin Level 4.5 g/dL (3.5-5.0); Alkaline Phosphatase 95 U/L (39-117); Aspartate Amino Transferase 26 U/L (5-31); HIV Num 1 0.07 S/CO (0.00-0.99); Total Protein 7.6 g/dL (6.5-8.0)
[2024-08-30 14:13] LABS: CT PCR Urine NOT DETECTED (Not Detect.); NG PCR Urine NOT DETECTED (Not Detect.)
[2024-08-30 16:48] LABS: HCV Log PCR <1.18 NOT DETECTED Log IU/mL (NOT DETECTED); HepC Viral Load <15 NOT DETECTED IU/mL (NOT DETECTED)
== END 2024-08-29 09:55 | disposition home or self-care (01) ==
LOC: HO.HHCL 09:54
PROVIDERS: PCP Internal Medicine Geriatric Medicine; Visit Provider Registered Nurse
DX: Z00.00 Encounter for general adult medical examination without abnormal findings (principal)
CPT/HCPCS: 36415; 80076; 86592; 87389; 87491; 87522; 87591

== ENCOUNTER 2024-09-05 09:37 | Outpatient (AMB) | payer OTHER, SELFPAY ==
--- NOTE | 2024-09-05 09:49 | A.OFFVIS_ITS ---
Vital Signs 09/05/24 09:51 Height 5 ft Weight 149 lb BMI 29.1 BP 114/64 Blood Pressure Location Lt brachial Position Sitting Respiration 16 Pulse 71 Pulse Source Pulse Oximeter Pulse Oximetry (%) 95 Oxygen Delivery Method Room Air Intake Visit Reasons: Left GTB inj Opera Singer Required: No Roofer Metal: Roofer Metal Present Accompanied by: Bertram Ivy Allergies tuberculin, purified protein deriva (TB TEST) Allergy (Severe, Verified 09/05/24 09:53) ANGIOEDEMA Medication List - Last Reconciled 09/05/24 by Lottie Villarreal LPN albuterol sulfate 90 mcg/actuation 2 puffs PO Q4-6H PRN amlodipine 5 mg PO DAILY dulaglutide (Trulicity) mg subcut duloxetine 30 mg PO DAILY fluticasone propionate 220 mcg/actuation (Flovent HFA) 2 puffs inhalation BID hydroxyzine pamoate 1 cap PO BID ketoconazole 2% 1 appl topical DAILY levothyroxine 88 mcg PO DAILY loratadine 1 tab PO DAILY metformin 1 tab PO QAM metoprolol tartrate 25 mg PO BID montelukast (Singulair) 1 tab PO BEDTIME omeprazole 1 cap PO DAILY trazodone 50 mg PO BEDTIME zaleplon 10 mg PO BEDTIME PRN HPI HPI Left GTB inj: Details: History of Present Illness The patient is a 64-year-old female presenting for a greater trochanter inj ection on the left side. Procedure - Procedure: Left greater trochanter bursa injection - Informed consent was obtained, and the patient was positioned in the right lateral decubitus position. - The area was prepped with a clear antiseptic solution. - A 21 g needle was advanced under ultrasound guidance to the superior articular surface of the left greater trochanter. - 40 mg of Kenalog with 3mL ropvacaine 0.25% was injected after confirming negative aspiration. - The patient tolerated the procedure well, with no blood loss reported. - An image of the ultrasound-guided injection was saved for the patient's record. [facility] Medical History Pulmonary nodules STEVEN (obstructive sleep apnea) Asthma with COPD Allergic rhinitis Osteoarthritis, hip, bilateral Frequency of urination Hernia Depression Anxiety Heart disease Diabetes Asthma Fibromyalgia Atypical lobular hyperplasia (ALH) of breast Surgical History Hx of cardiac cath H/O rectal polypectomy History of carpal tunnel surgery Hx of toe surgery Hx of right knee surgery Hx of tonsillectomy History of appendectomy Hx of cholecystectomy H/O: hysterectomy Hx of section Family History Brother Heart disease Asthma Mother Family history of esophageal cancer Hypertension Asthma Lung cancer Father History of prostate cancer Asthma Paternal Aunt No problems noted. Paternal Grandfather Liver cancer Colon cancer Family/Other Stomach cancer Maternal Aunt Breast cancer Social History Household Members: None Housing: Apartment Are you a primary child care giver to a significant other at home: No Do you presently have visiting nurse or other home services: No Alcohol intake: former Patient Tobacco Use Status: Never used Tobacco service: No Current occupational status: disabled Female Reproductive History Menstrual Age of Menarche: 15 Physical Exam Vital Signs: Last Vital Signs Pulse 71 09/05/24 09:51 Resp 16 09/05/24 09:51 BP 114/64 09/05/24 09:51 Pulse Ox 95 09/05/24 09:51 Oxygen Delivery Method Room Air 09/05/24 09:51 BMI result Body Mass Index 29.1 Assessment & Plan Assessment & Plan (1) Greater trochanteric pain syndrome: Code(s): M25.559 - Pain in unspecified hip Category: Medical Plan Plan - Follow-up in eight weeks to assess the effectiveness of the steroid injection and consider knee injection. - Avoid additional steroid injections within this period to prevent potential adverse effects. Patient was informed and verbally consented to the use of an ambient scribe for clinic note documentation during this visit. Discussion Notes I discussed with the patient the procedure of injecting the left greater trochanter bursa, including the risks and benefits. The patient was informed about the need to wait at least eight weeks before considering another steroid injection to avoid potential adverse effects. Patient Instructions - Follow up in eight weeks to evaluate the effectiveness of the injection. - Avoid any additional steroid injections within this period. Coding Level of Care Code Procedure Only Diagnoses Greater trochanteric pain syndrome M25.559
[2024-09-05 09:51] VITALS: BP 114/64; PULSE 71; RESP 16; O2SAT 95; BMI 29.1
--- OUTSIDE RECORDS SUMMARY | 2024-09-05 10:08 | XMS_ITS | Clinical Summary ---
Author Organization [facility] Address [address] [place] [address] Phone Care Team Providers Care Workers' Compensation Claims Supervisor Name Role Phone Name, Edmund HERNANDEZ Primary Care Provider [phone] Allergies Active Allergy Reactions Criticality Noted Date Comments Iodinated Contrast Media Nausea And Vomiting,Other,Swellin g 03/06/2008 Throat closing Medical History Medical History Date Comments Diabetes mellitus (CMS/HCC V24, CMS/[facility] V28) Disease of thyroid gland Tachycardia [...] 5 Years) and At-Risk Patients (6 to 49 Years) Completed 07/29/2023, 07/24/2014 HIB Vaccines Aged [...] mmol/L LAB CHEMISTRY METHOD 02/05/2024 3:[address] [facility] Potassium 4.3 3.5 - 5.5 mmol/L LAB CHEMISTRY METHOD 02/05/2024 3:[address] [facility] Chloride 110 96 - 110 mmol/L LAB CHEMISTRY METHOD 02/05/2024 3:[address] [facility] CO2 26 21 - 32 mmol/L LAB CHEMISTRY METHOD 02/05/2024 3:[address] [facility] Anion Gap 8 3 - 11 LAB CHEMISTRY METHOD 02/05/2024 3:[address] [facility] Glucose 113(H) 70 - 100 mg/dL LAB CHEMISTRY METHOD 02/05/2024 3:[address] [facility] BUN 12 5 - 25 mg/dL LAB CHEMISTRY METHOD 02/05/2024 3:[address] [facility] Creatinine 0.76 0.50 - 1.10 mg/dL LAB CHEMISTRY METHOD 02/05/2024 3:[address] [facility] eGFR 89 >=60 mL/min/1. 73m2 LAB CHEMISTRY METHOD 02/05/2024 3:[address] [facility] Comment:Calculation based on the Chronic Kidney Disease Epidemiology Collaboration (CKD-EPI) equation refit without adjustment for race. BUN/Creatinine Ratio 15.8 LAB CHEMISTRY METHOD 02/05/2024 3:[address] [facility] Calcium 10.2 8.5 - 10.5 mg/dL LAB CHEMISTRY METHOD 02/05/2024 3:[address] [facility] AST (SGOT) 25 10 - 42 unit/L LAB CHEMISTRY METHOD 02/05/2024 3:[address] [facility] ALT (SGPT) 31 10 - 60 unit/L LAB CHEMISTRY METHOD 02/05/2024 3:[address] [facility] Alkaline Phosphatase 112 42 - 121 unit/L LAB CHEMISTRY METHOD 02/05/2024 3:[address] [facility] Total Protein 7.1 6.0 - 8.0 g/dL LAB CHEMISTRY METHOD 02/05/2024 3:[address] [facility] Albumin 3.8 3.2 - 5.0 g/dL LAB CHEMISTRY METHOD 02/05/2024 3:[address] [facility] Total Bilirubin 0.4 0.0 - 1.4 mg/dL LAB CHEMISTRY METHOD 02/05/2024 3:[address] [facility] Blood Venous blood specimen / Unknown Venipuncture / Unknown 02/05/2024 3:05 PM EST 02/05/2024 3:30 PM EST us Bowen Juarez MD LAB BLOOD ORDERABLES Nazanin l Result [facility] [address] [place] [address], * DX MAMMO INCL CAD BI (11/11/2016 [...] Most Recently Relevant to Health Maintenance Insurance [facility] MEDICARE Member Subscriber Plan / Payer (Ef fective 2020-Present) Name:Pippa Camilo I Relation to Subscriber:Self Name:Pippa Camilo I Payer ID:[id number] Group ID:[id number] Type:Not on file Address: [address] [facility] [place] [address] Care Teams Workers' Compensation Claims Supervisor Relationship Specialty Start Date End Date Name, MD Edmund [address] [place], [place] PCP - General Internal Medicine 02/07/08
--- OUTSIDE RECORDS SUMMARY | 2024-09-05 10:08 | XMS_ITS | Data Portability ---
Author Organization [employer] [facility], [facility] Address [address] [place] [address] Care Team Providers Care Bridges And Buildings Supervisor Name Role Phone HIM CCA OTHER NAME, COREY Primary Care Provider Assessment Encounter Date Assessment Date Assessment LastModified by Organization Details LastModified Time 07/01/2024 07/01/2024 I provided real -time medical direction via phone for this encounter, and was available for additional phone based assistance as needed. I have reviewed and agree with the Assessment and Plan as documented by the Pan Pusher. We discussed the diagnostic uncertainty of home [...] ED eval. Family verbalized understanding of instructions. [email or web address] Not available 07/01/2024 11:27:29 Plan of Treatment Reminders Order Date Submit Date Provider Last Modified By Organization Details Last Modified Time Details Appointments None recorded. Lab None recorded. Referral None recorded. Procedures None recorded. Surgeries None recorded. Imaging None recorded. Medication Orders lidocaine 5 % topical patch 2024 025 [id number], [address], [place], [place], [phone], 10:32:00 Patient TargetsNo targets recorded. Patient InstructionsNo instructions recorded. Reason for Referral None Reported. Medical Equipment None Reported. Allergies Allergen ID Allergen Name Allergen Category Reaction Reaction Severity Criticality Documentation Date Start Date Code Code System Note Provider Name and Address Organization Details Recorded Time 73169 purified protein derivativ e of tuberculi n [...] blood by Pulse oximetry Body temperature Systolic And Diastolic Provider Name and Address Organization Details Last Updated DateTime 5 79 /min 18 /min 03722.5 76 g 152.4 cm 95 % 95 % 98.4 [degF] 146/98 mm[Hg] Not Available [employer] - production 5 [...] SNOMED-CT Code Diagnosis ICD10 Code Diagnosis Note 10645 SOMMER LIU NP, [address] - instED [address] [place] [address] 07/01/2024 10:24:45 07/02/2024 00:12:40 Chronic low back pain 147776589 M54.42 M54.41 G89.29 Patient has hx of [...] Hernandez Member ID Guarantor Name 06/30/2024 1 [facility] - DOS ON OR AFTER 2022 - DUAL ELIGIBLE - ASSISTED OPTIONS AND ONE CARE (MEDICARE REPLACEMENT/ADV ANTAGE - HMO) Pippa Jackson [id number] Pippa Jackson Notes Date Note Type Note [...] .................... .................... .................... .................... .................... .................... . Pan Pusher Note From America Rose: MARTA makes pt [...] Pt consents to evaluation and treatment today. [facility] obtains pt consent. Vitals signs are [...] swelling is noted bilaterally and is equal. [facility] contacts [facility] and discusses the above. [facility] recommends heat and ice, gentle stretching, and will prescribe a lidocaine gel or patch for pt. [facility] will also message pt's care team to request a refill of her tramadol. [facility] instructs pt to decrease her Tylenol [...] the development of saddle paralysis. Pt thanks [facility] for visit. [facility] is clear. Report completed by JUAN Rose [id number]. .................... .................... .................... .................... .................... .................... .................... . [facility] Consulted: Sommer Liu .................... .................... .................... .................... .................... .................... .................... . Disposition: Fulfilled SOMMER LIU NP, [address] [place] [address],[address], [place], [address], [employer] 07/01/2024 11:44:34 OBGyn Episode No OBEpisode recorded.
--- OUTSIDE RECORDS SUMMARY | 2024-09-05 10:08 | XMS_ITS | Encounter Summary ---
Author Organization [employer] Address [address] [place] [address] [address] [place] [address] Care Team Providers Care Snow Removing Supervisor Name Role Phone Name, Edmund HERNANDEZ Primary Care Provider [phone] Encounter Details Date Type Department Care Team (Late Contact Info) Description 05/12/2022 Orders Only [facility] CHC MED & PEDS [address] [place], [place] [phone] Sarah Sherwood LPN Social History Tobacco Use [...] Care Team (Late st Contact Info) Description 12/04/2024 10:00 AM EDT Office Visit [facility] MEDICINE [address] [place] [address] Name, MD Edmund [address] [place], [place] [phone] documented as of this encounter Procedures Procedure Name Priority Date/Time Associated Diagnosis Comments VASC US LOWER EXTREMITY VENOUS DUPLEX RIGHT Routine 06/11/2022 2:15 PM EDT XR CHEST 2 VIEWS Routine 05/19/2022 5:03 PM EDT documented in this encounter Results * Vascular US lower extremity venous duplex right (06/11/2022 2:15 PM EDT) 06/11/2022 2:15 PM EDT Narrative [facility] - 06/11/2022 3:03 PM EDT [address] [address] Ultrasound Report Signed Patient: Pippa Camilo I MR#: [id number] : 1960 Acct:[id number] Age/Sex: 61 / F ADM Date: 06/11/22 Loc: .US Attending Dr: Uli Prakash MD Ordering Physician: ULI PRAKASH MD Date of Service: 06/11/22 Procedure(s): US venous duplex LE RT Accession Number(s): [id number] cc: ULI PRAKASH MD EXAMINATION: US VENOUS [...] OV> 06/11/22 1500 DD/ 1415 TD/TT: Field Clinical Engineer: SK Procedure Note Donotuseinterpreter, Image - 06/11/[address] [address] Ultrasound Report Signed Patient: Pippa Camilo IMR#: [id number] : 1960Acct:[id number] Age/Sex: 61 / FADM Date: 06/11/22 Loc: HO.US Attending Dr: Uli Prakash MD Ordering Physician: ULI PRAKASH MD Date of Service: 06/11/22 Procedure(s): US venous duplex LE RT Accession Number(s): [id number] cc: ULI PRAKASH MD EXAMINATION: US VENOUS [...] OV> 06/11/22 1500 DD/ 1415 TD/TT: Field Clinical Engineer: SK us [facility] External Provider CV VASC ULAR PROCEDURES Edited Result - Final [facility] [address] [place] [phone] * XR Chest 2 Views (05/19/2022 5:03 PM EDT) Anatomical Region Laterality Modality Chest Radiographic Suzanne ging 05/19/2022 5:03 PM EDT Narrative 05/25/2022 1:42 PM EDT [address] [address] XRay Report Signed Patient: Pippa Camilo I MR#: [id number] : 1960 Acct:[id number] Age/Sex: 61 / F ADM Date: 05/19/22 Loc: FELIPE Attending Dr: Uli Prakash MD Ordering Physician: ULI PRAKASH MD Date of Service: 05/19/22 Procedure(s): XR chest 2V Accession Number(s): [id number] cc: ULI PRAKASH MD EXAMINATION: XR CHEST [...] OV> 05/25/22 1340 DD/ 1703 TD/TT: Field Clinical Engineer: SERGIO Procedure Note Donotuseinterpreter, Image - 05/25/2022 [place] [address] XRay Report Signed Patient: Pippa Camilo IMR#: [id number] : 1960Acct:[id number] Age/Sex: 61 / FADM Date: 05/19/22 Loc: FELIPE Attending Dr: Uli Prakash MD Ordering Physician: ULI PRAKASH MD Date of Service: 05/19/22 Procedure(s): XR chest 2V Accession Number(s): [id number] cc: ULI PRAKASH MD EXAMINATION: XR CHEST [...] OV> 05/25/22 1340 DD/ 1703 TD/TT: Field Clinical Engineer: SERGIO Authorahsan Provider Result Type Result Stat [facility] External Provider IMG XR PROCEDURES Edited Result - Final documented in this encounter Visit Diagnoses Not on filedocumented in this encounter Care Teams Snow Removing Supervisor Relationship Specialty Start Date End Date Name, MD Edmund [address] [place] [address] PCP - General Family Medicine 04/04/15 documented as of this encounter
== END 2024-09-05 10:08 | disposition home or self-care (01) ==
LOC: HO.PMC 09:38
PROVIDERS: PCP Internal Medicine Geriatric Medicine; Visit Provider Internal Medicine
DX: M25.552 Pain in left hip (principal)
CPT/HCPCS: 20611

== ENCOUNTER → 2024-09-05 09:37 | Outpatient (BNVA) | payer OTHER, SELFPAY | PROVIDERS: PCP Internal Medicine Geriatric Medicine; Visit Provider Internal Medicine | DX: M25.552 Pain in left hip (principal) | CPT/HCPCS: 20611; J2795; J3301 ==

== ENCOUNTER 2024-09-07 15:59 | Outpatient (REF) | payer OTHER, SELFPAY ==
--- NOTE | ~2024-09-07 | CT_ITS ---
EXAMINATION: CT SINUS WITHOUT CONTRAST CLINICAL INFORMATION: Polyp, Nasal Cavity COMPARISON: None available. TECHNIQUE: Axial CT was performed through the mid skull through the base of dens. Coronal and sagittal reformatted images were generated from the original axial data set. ALARA: The examination used one or more of the following radiation dose reduction techniques: Automated exposure control, iterative reconstruction, and/or adjustment of mA and/or KV. DLP: 82 mGY*cm FINDINGS: Paranasal sinuses are clear. Bony nasal septum deviates left 3 mm. Turbinates are symmetrical. Patent infundibula are noted bilaterally. There is moderate to severe asymmetric narrowing of the right temporal mandibular joint and subchondral cystic change in the mandibular head. The left temporomandibular joint demonstrate mild flattening of the mandibular condyle and marginal osteophyte formation. The joint space demonstrates moderate narrowing. Orbits are grossly normal. CT/CT sinus wo IV con IMPRESSION: Unremarkable paranasal sinuses. Minimal leftward bowing of the bony nasal septum. 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 Electronically signed by: Denys Macias MD 09/07/2024 04:51 PM EDT
--- OUTSIDE RECORDS SUMMARY | 2024-09-07 16:01 | XMS_ITS | Encounter Summary ---
Author Organization [employer] Address [address] [place] [address] [address] [place] [address] Care Team Providers Care Outbound Telemarketer Name Role Phone Name, Edmund HERNANDEZ Primary Care Provider [phone] Encounter Details Date Type Department Care Team (Late Contact Info) Description 05/12/2022 Orders Only [facility] CHC MED & PEDS [address] [place], [place] [phone] Sarah Sherwood LPN Social History Tobacco Use [...] Description 12/04/2024 10:00 AM EDT Office Visit [facility] MEDICINE [address] [place] [address] Name, MD Edmund [address] [place], [place] [phone] documented as of this encounter Procedures Procedure Name Priority Date/Time Associated Diagnosis Comments VASC US LOWER EXTREMITY VENOUS DUPLEX RIGHT Routine 06/11/2022 2:15 PM EDT XR CHEST 2 VIEWS Routine 05/19/2022 5:03 PM EDT documented in this encounter Results * Vascular US lower extremity venous duplex right (06/11/2022 2:15 PM EDT) 06/11/2022 2:15 PM EDT Narrative [facility] - 06/11/2022 3:03 PM EDT [address] [address] Ultrasound Report Signed Patient: Pippa Camilo I MR#: [id number] : 1960 Acct:[id number] Age/Sex: 61 / F ADM Date: 06/11/22 Loc: .US Attending Dr: Uli Prakash MD Ordering Physician: ULI PRAKASH MD Date of Service: 06/11/22 Procedure(s): US venous duplex LE RT Accession Number(s): [id number] cc: ULI PRAKASH MD EXAMINATION: US VENOUS [...] in OV> 06/11/22 1500 DD/ 1415 TD/TT: Cut Off Saw Operator Pipe Blanks: SK Procedure Note Donotuseinterpreter, Image - 06/11/[address] [place] [address] Ultrasound Report Signed Patient: Pippa Camilo IMR#: [id number] : 1960Acct:[id number] Age/Sex: 61 / FADM Date: 06/11/22 Loc: HO.US Attending Dr: Uli Prakash MD Ordering Physician: ULI PRAKASH MD Date of Service: 06/11/22 Procedure(s): US venous duplex LE RT Accession Number(s): [id number] cc: ULI PRAKASH MD EXAMINATION: US VENOUS [...] in OV> 06/11/22 1500 DD/ 1415 TD/TT: Cut Off Saw Operator Pipe Blanks: SK us [facility] External Provider CV VASC ULAR PROCEDURES Edited Result - Final [facility] [address] [place] [phone] * XR Chest 2 Views (05/19/2022 5:03 PM EDT) Anatomical Region Laterality Modality Chest Radiographic Suzanne ging 05/19/2022 5:03 PM EDT Narrative 05/25/2022 1:42 PM EDT [address] [address] XRay Report Signed Patient: Pippa Camilo I MR#: [id number] : 1960 Acct:[id number] Age/Sex: 61 / F ADM Date: 05/19/22 Loc: FELIPE Attending Dr: Uli Prakash MD Ordering Physician: ULI PRAKASH MD Date of Service: 05/19/22 Procedure(s): XR chest 2V Accession Number(s): [id number] cc: ULI PRAKASH MD EXAMINATION: XR CHEST [...] in OV> 05/25/22 1340 DD/ 1703 TD/TT: Cut Off Saw Operator Pipe Blanks: SERGIO Procedure Note Donotuseinterpreter, Image - 05/25/2022 [place] [address] XRay Report Signed Patient: Pippa Camilo IMR#: [id number] : 1960Acct:[id number] Age/Sex: 61 / FADM Date: 05/19/22 Loc: FELIPE Attending Dr: Uli Prakash MD Ordering Physician: ULI PRAKASH MD Date of Service: 05/19/22 Procedure(s): XR chest 2V Accession Number(s): [id number] cc: ULI PRAKASH MD EXAMINATION: XR CHEST [...] in OV> 05/25/22 1340 DD/ 1703 TD/TT: Cut Off Saw Operator Pipe Blanks: SERGIO Authorahsan Provider Result Type Result Stat [facility] External Provider IMG XR PROCEDURES Edited Result - Final documented in this encounter Visit Diagnoses Not on filedocumented in this encounter Care Teams Outbound Telemarketer Relationship Specialty Start Date End Date Name, MD Edmund [address] [place] [address] PCP - General Family Medicine 04/04/15 documented as of this encounter
--- OUTSIDE RECORDS SUMMARY | 2024-09-07 16:02 | XMS_ITS | Clinical Summary ---
Author Organization [facility] Address [address] [place] [address] Phone Care Team Providers Care Clinical Leader Name Role Phone Name, Edmund HERNANDEZ Primary Care Provider [phone] Allergies Active Allergy Reactions Criticality Noted Date Comments Iodinated Contrast Media Nausea And Vomiting,Other,Swellin g 03/06/2008 Throat closing Medical History Medical History Date Comments Diabetes mellitus (CMS/HCC V24, CMS/[facility] V28) Disease of thyroid gland Tachycardia [...] mmol/L LAB CHEMISTRY METHOD 02/05/2024 3:56 PM [facility] Potassium 4.3 3.5 - 5.5 mmol/L LAB CHEMISTRY METHOD 02/05/2024 3:56 PM [facility] Chloride 110 96 - 110 mmol/L LAB CHEMISTRY METHOD 02/05/2024 3:56 PM [facility] CO2 26 21 - 32 mmol/L LAB CHEMISTRY METHOD 02/05/2024 3:56 PM [facility] Anion Gap 8 3 - 11 LAB CHEMISTRY METHOD 02/05/2024 3:56 PM [facility] Glucose 113(H) 70 - 100 mg/dL LAB CHEMISTRY METHOD 02/05/2024 3:56 PM [facility] BUN 12 5 - 25 mg/dL LAB CHEMISTRY METHOD 02/05/2024 3:56 PM [facility] Creatinine 0.76 0.50 - 1.10 mg/dL LAB CHEMISTRY METHOD 02/05/2024 3:56 PM [facility] eGFR 89 >=60 mL/min/1. 73m2 LAB CHEMISTRY METHOD 02/05/2024 3:56 PM [facility] Comment:Calculation based on the Chronic Kidney Disease Epidemiology Collaboration (CKD-EPI) equation refit without adjustment for race. BUN/Creatinine Ratio 15.8 LAB CHEMISTRY METHOD 02/05/2024 3:56 PM [facility] Calcium 10.2 8.5 - 10.5 mg/dL LAB CHEMISTRY METHOD 02/05/2024 3:56 PM [facility] AST (SGOT) 25 10 - 42 unit/L LAB CHEMISTRY METHOD 02/05/2024 3:56 PM [facility] ALT (SGPT) 31 10 - 60 unit/L LAB CHEMISTRY METHOD 02/05/2024 3:56 PM [facility] Alkaline Phosphatase 112 42 - 121 unit/L LAB CHEMISTRY METHOD 02/05/2024 3:56 PM [facility] Total Protein 7.1 6.0 - 8.0 g/dL LAB CHEMISTRY METHOD 02/05/2024 3:56 PM [facility] Albumin 3.8 3.2 - 5.0 g/dL LAB CHEMISTRY METHOD 02/05/2024 3:56 PM [facility] Total Bilirubin 0.4 0.0 - 1.4 mg/dL LAB CHEMISTRY METHOD 02/05/2024 3:56 PM [facility] Blood Venous blood specimen / Unknown Venipuncture / Unknown 02/05/2024 3:05 PM EST 02/05/2024 3:30 PM EST us Bowen Juarez MD LAB BLOOD ORDERABLES Nazanin l Result [facility] [address] [place] [address], * DX MAMMO INCL CAD BI (11/11/2016 [...] Most Recently Relevant to Health Maintenance Insurance [facility] MEDICARE Member Subscriber Plan / Payer (Ef fective 2020-Present) Name:Pippa Camilo I Relation to Subscriber:Self Name:Pippa Camilo I Payer ID:[id number] Group ID:[id number] Type:Not on file Address: [address] [facility] [place] [address] Care Teams Clinical Leader Relationship Specialty Start Date End Date Name, MD Edmund [address] [place], [place] PCP - General Internal Medicine 02/07/08
--- OUTSIDE RECORDS SUMMARY | 2024-09-07 16:02 | XMS_ITS | Data Portability ---
Author Organization [employer] [facility], [facility] Address [address] [place] [address] Care Team Providers Care Marble Mechanic Helper Name Role Phone HIM CCA OTHER NAME, COREY Primary Care Provider Assessment Encounter Date Assessment Date Assessment LastModified by Organization Details LastModified Time 07/01/2024 07/01/2024 I provided real -time medical direction via phone for this encounter, and was available for additional phone based assistance as needed. I have reviewed and agree with the Assessment and Plan as documented by the Anesthesiology Resident. We discussed the diagnostic uncertainty of home [...] ED eval. Family verbalized understanding of instructions. [email or web address] Not available 07/01/2024 11:27:29 Plan of Treatment Reminders Order Date Submit Date Provider Last Modified By Organization Details Last Modified Time Details Appointments None recorded. Lab None recorded. Referral None recorded. Procedures None recorded. Surgeries None recorded. Imaging None recorded. Medication Orders lidocaine 5 % topical patch 2024 025 [id number], [address], [place], [place], [phone], 10:32:00 Patient TargetsNo targets recorded. Patient InstructionsNo instructions recorded. Reason for Referral None Reported. Medical Equipment None Reported. Allergies Allergen ID Allergen Name Allergen Category Reaction Reaction Severity Criticality Documentation Date Start Date Code Code System Note Provider Name and Address Organization Details Recorded Time 88601 purified protein derivativ e of tuberculi n [...] Updated DateTime 5 79 /min 18 /min 98674.5 76 g 152.4 cm 95 % 95 [...] SNOMED-CT Code Diagnosis ICD10 Code Diagnosis Note 11302 SOMMER LIU NP, S Main - instED [address] [place] [address] 07/01/2024 10:24:45 07/02/2024 00:12:40 Chronic low back pain 798590700 M54.42 M54.41 G89.29 Patient has hx of [...] Hernandez Member ID Guarantor Name 06/30/2024 1 [facility] - DOS ON OR AFTER 2022 - DUAL ELIGIBLE - SHELTER OPTIONS AND ONE CARE (MEDICARE REPLACEMENT/ADV ANTAGE - HMO) Pippa Jackson [id number] Pippa Jackson Notes Date Note Type Note [...] .................... .................... .................... .................... .................... .................... . Anesthesiology Resident Note From America Rose: MARTA makes pt [...] Pt consents to evaluation and treatment today. [facility] obtains pt consent. Vitals signs are [...] swelling is noted bilaterally and is equal. [facility] contacts [facility] and discusses the above. [facility] recommends heat and ice, gentle stretching, and will prescribe a lidocaine gel or patch for pt. [facility] will also message pt's care team to request a refill of her tramadol. [facility] instructs pt to decrease her Tylenol [...] the development of saddle paralysis. Pt thanks [facility] for visit. [facility] is clear. Report completed by JUAN Rose [id number]. .................... .................... .................... .................... .................... .................... .................... . [facility] Consulted: Sommer Liu .................... .................... .................... .................... .................... .................... .................... . Disposition: Fulfilled SOMMER LIU NP, [address] [place] [address],[address], [place], [address], [employer] 07/01/2024 11:44:34 OBGyn Episode No OBEpisode recorded.
== END 2024-09-07 16:00 | disposition home or self-care (01) ==
LOC: HO.CT 15:59
PROVIDERS: PCP Internal Medicine Geriatric Medicine; Visit Provider Otolaryngology
DX: J33.0 Polyp of nasal cavity (principal)
CPT/HCPCS: 70486

== ENCOUNTER → 2024-09-07 16:07 | Outpatient (BNV) | payer OTHER, SELFPAY | PROVIDERS: PCP Internal Medicine Geriatric Medicine; Visit Provider Radiology Diagnostic Radiology | DX: M26.643 Arthritis of bilateral temporomandibular joint (principal) | CPT/HCPCS: 70486 ==

== ENCOUNTER 2024-12-04 10:40 | Outpatient (REF) | payer OTHER, SELFPAY ==
--- OUTSIDE RECORDS SUMMARY | 2024-12-04 10:00 | XMS_ITS | Encounter Summary ---
Author Organization [employer] Address 75 [facility] 7 [place] [address] Care Team Providers Care Forestry Fire Aid Name Role Phone Name, Edmund HERNANDEZ Primary Care Provider [phone] Reason for Visit * Reason Comments Follow-up Encounter Details Date Type Department Care Team (Latest Contact Info) Description 12/04/2024 10:00 AM EDT Office Visit [facility] [address] [place] [address] [phone] Name, MD Edmund [address] [place] [address] Type 2 diabetes mellitus without complication, without long-term current use of insulin (HCC) (Primary Dx); Encounter for immunization; Left foot pain; Status post left foot surgery; Acquired hypothyroidism Social History Tobacco Use Types Packs/Day Years [...] Sign Reading Time Taken Comments Blood Pressure 132/92 12/04/2024 10:10 AM EDT Pulse 75 12/04/2024 10:10 AM EDT Temperature 36.1 C (97 F) 12/04/2024 10:10 AM EDT Respiratory Rate 14 12/04/2024 10:10 AM EDT Oxygen Saturation 99% 12/04/2024 10:10 AM EDT Inhaled Oxygen Concentration - - Weight - - Height 152.4 cm (5') 12/04/2024 10:10 AM EDT Body Mass Index - - documented in this encounter Progress Notes * Edmund Valentino MD - 12/04/2024 10:00 AM EDT Subjective Patient ID: Pippa Dean is a 64 y.o. female who presents for Follow-up . Patient comes for a follow-up visit. She is accompanied by her brother. She comes wearing a left postoperative boot after recent foot surgery. She is using a special scooter to ambulate. She continues to follow with orthopedics. She has requested a medication to treat moderate to severe pain that she has daily on the left foot. Abdn-bjr-nguivuo medications are not helping. She was prescribed opiate pain medication postoperatively and ran out. In terms of her diabetes her blood sugar is very well-controlled based on hemoglobin A1c. She is currently only using Trulicity and she ran out of metformin several weeks ago. BP slightly elevated but she ran out of her amlodipine and is having moderate left foot pain Review of Systems Constitutional: Negative for chills and fever. HENT: Negative for sore throat. Respiratory: Negative for cough, shortness of breath and wheezing. Cardiovascular: Negative for chest pain, palpitations and leg swelling. Gastrointestinal: Negative for abdominal pain. Musculoskeletal: See HPI Objective Vitals: 12/04/24 1010 BP: (!) 132/92 BP Location: Left arm Patient Position: Sitting BP Cuff Size: Adult Pulse: 75 Resp: 14 Temp: 97 ??F (36.1 ??C) TempSrc: Temporal SpO2: 99% Height: 5' (1.524 m) Physical Exam Constitutional: Appearance: Normal appearance. Cardiovascular: Rate and Rhythm: Normal rate and regular rhythm. Heart sounds: No murmur heard. No gallop. Pulmonary: Effort: Pulmonary effort is normal. No respiratory distress. Breath sounds: Normal breath sounds. No wheezing. Musculoskeletal: Right lower leg: No edema. Comments: Gauze is covering the left foot and post op boot in place that I did not remove Neurological: Mental Status: She is alert. Assessment/Plan Diagnoses and all orders for this visit: Type 2 diabetes mellitus without complication, without long-term current use of insulin ([facility]) Comments: Well controlled, continue current meds Avoid sweets Flu vaccine today Orders: - POCT Glucose - POCT Hgb A1c - amLODIPine (Norvasc) 5 MG tablet; Take 1 tablet (5 mg) by mouth Once per day. - atorvastatin (Lipitor) 20 MG tablet; Take 1 tablet (20 mg) by mouth Once per day. - metFORMIN (Glucophage) 500 MG tablet; TAKE 1 TABLET BY ORAL ROUTE 2 TIMES EVERY DAY WITH MORNING AND EVENING MEALS Encounter for immunization - FLU VACCINE TRIVALENT [id number] (Fluarix) 19 yrs + Left foot pain Comments: I agreed to prescribe a short course of tramadol. Follow up with orthopedics Orders: - traMADol (Ultram) 50 MG tablet; Take 1 tablet (50 mg) by mouth if needed in the morning and at bedtime for severe pain for up to 10 days. Status post left foot surgery - traMADol (Ultram) 50 MG tablet; Take 1 tablet (50 mg) by mouth if needed in the morning and at bedtime for severe pain for up to 10 days. Acquired hypothyroidism Comments: Continue levothyroxine and recheck TSH Orders: - TSH W/Reflex to FT4; Future documented in this encounter Plan of Treatment Scheduled Orders Name Type Priority Associated Diagnoses Orde r Schedule TSH W/Reflex to FT4 Lab Routine Acquired hypothyroidism Expected: 12/04/2024 (Approximate), Expires: 12/04/2025 documented as of this encounter Procedures Procedure Name Priority Date/Time Associated Diagnosis Comments POCT GLYCATED HEMOGLOBIN, TOTAL Routine 12/04/2024 10:12 AM EDT Type 2 diabetes mellitus without complication, without long-term current use of insulin (HCC) POCT GLUCOSE Routine 12/04/2024 10:11 AM EDT Type 2 diabetes mellitus without complication, without long-term current use of insulin (HCC) documented in this encounter Results * (ABNORMAL) POCT Hgb A1c (12/04/2024 10:12 AM EDT) Hemoglobin A1C 6.1(A) 4.0 - 5.7 % QC Media Lot # [id number] Lot# Expiration Date [id number] Blood 12/04/2024 10:1 2 AM EDT Edmund Valentino MD POINT OF CARE TEST ENTER/EDIT OR DERABLES Final Result * POCT Glucose (12/04/2024 10:11 AM EDT) Glucose Blood, POC 98 60 - 200 mg/dL QC Media Lot # [id number] Lot# Expiration Date Blood Capillary blood specimen / Unknown 12/04/2024 10:11 AM EDT Edmund Valentino MD POINT OF CARE TEST ENTER/EDIT OR DERABLES Final Result documented in this encounter Visit Diagnoses Diagnosis Type 2 diabetes mellitus without complication, without long-term current use of insulin (HCC)- Primary Encounter for immunization Left foot pain Pain in soft tissues of limb Status post left foot surgery Acquired hypothyroidism Unspecified hypothyroidism documented in this encounter Additional Health Concerns Assessment Noted Time PHQ-9 Depression Total Score: 0 07/18/19 10:30 AM EDT documented as of this encounter Care Teams Forestry Fire Aid Relationship Specialty Start Date End Date Name, MD Edmund [address] [place] [address] PCP - General Family Medicine 04/04/15 documented as of this encounter
--- OUTSIDE RECORDS SUMMARY | 2024-12-04 12:57 | XMS_ITS | Encounter Summary ---
Author Organization [employer] Address 75 [facility] 7t [place] [address] Care Team Providers Care Tripe Scraper Name Role Phone Name, Edmund HERNANDEZ Primary Care Provider [phone] Encounter Details Date Type Department Care Team (Latest Contact Info) Description 12/04/2024 Travel Social History Tobacco Use Types Packs/Day [...] documented as of this encounter Care Teams Tripe Scraper Relationship Specialty Start Date End Date Name, MD Edmund [address] [place] [address] PCP - General Family Medicine 04/04/15 documented as of this encounter
--- OUTSIDE RECORDS SUMMARY | 2024-12-04 12:57 | XMS_ITS | Encounter Summary ---
Author Organization [employer] Address 75 [facility] 7 [place] [address] Care Team Providers Care Body And Frame Man Name Role Phone Name, Edmund HERNANDEZ Primary Care Provider [phone] Reason for Visit * Reason Onset Date Comments mail appt slip 03/15/2024 Encounter Details Date Type Department Care Team ([facility] Contact Info) Description 03/15/2024 Telephone [facility] [address] [place] [address] Lillie Witt mail appt slip Social History [...] documented as of this encounter Care Teams Body And Frame Man Relationship Specialty Start Date End Date Name, MD Edmund [address] [place] [address] PCP - General Family Medicine 04/04/15 documented as of this encounter
--- OUTSIDE RECORDS SUMMARY | 2024-12-04 12:57 | XMS_ITS | Clinical Summary ---
Author Organization [facility] Address [address] [place] [address] Phone Care Team Providers Care It Investment/Portfolio Manager Name Role Phone Name, Edmund HERNANDEZ Primary Care Provider [phone] Allergies Active Allergy Reactions Criticality Noted Date Comments Iodinated Contrast Media Nausea And Vomiting,Other,Swellin g 03/06/2008 Throat closing Medical History Medical History Date Comments Diabetes mellitus (CMS/HCC V24, CMS/[facility] V28) Disease of thyroid gland Tachycardia [...] Health Maintenance Due Date Last Done Comments Colorectal Cancer Screening: Colonoscopy 1962 Diabetes: Annual Foot Exam 1972 Diabetes: Annual Retina Eye Exam 1972 Zoster Vaccines (1 of 2) 1981 Cervical Cancer Screening: Pap Smear 06/26/1983 Breast Cancer Screening 11/11/2018 11/11/2016 HIV Screening 02/10/2022 Hepatitis C Screening 02/10/2022 Medicare Annual Wellness Visit 02/10/2022 Social Influencers of Health Screening 02/10/2022 RSV Immunization Adult Patients (1 - Risk 60-74 years 1-dose series) 2022 Diabetes: Annual Urine Albumin-Creatinine Ratio (uACR) 02/05/2024 Depression Screening 02/29/2024 Diabetes: Blood Sugar Control Test (HGBA1C) 06/05/2024 12/06/2023 COVID-19 Vaccine (5 - Pfizer risk season) 2024 11/02/2023, 12/11/2020, 04/27/2020, Additional history exists Influenza Vaccine (#1) 2024 , 11/10/2021, 12/08/2018, Additional history exists Diabetes: Annual GFR (Glomerular Filtration Rate) 02/04/2025 02/05/2024 Hypertension/CHF/CAD Annual BMP Blood Test 02/04/2025 02/05/2024 Cholesterol Screening (Lipid Panel) 06/06/2028 06/07/2023 DTaP,Tdap,and Td Vaccines (3 - Td or Tdap) 12/05/2033 12/06/2023, 03/15/2011 Pneumococcal Vaccine: 50+ Years Completed 07/29/2023, 07/24/2014 HIB Vaccines Aged Out [...] mmol/L LAB CHEMISTRY METHOD 02/05/2024 3:56 PM [facility] Potassium 4.3 3.5 - 5.5 mmol/L LAB CHEMISTRY METHOD 02/05/2024 3:56 PM [facility] Chloride 110 96 - 110 mmol/L LAB CHEMISTRY METHOD 02/05/2024 3:56 PM [facility] CO2 26 21 - 32 mmol/L LAB CHEMISTRY METHOD 02/05/2024 3:56 PM [facility] Anion Gap 8 3 - 11 LAB CHEMISTRY METHOD 02/05/2024 3:56 PM [facility] Glucose 113(H) 70 - 100 mg/dL LAB CHEMISTRY METHOD 02/05/2024 3:56 PM [facility] BUN 12 5 - 25 mg/dL LAB CHEMISTRY METHOD 02/05/2024 3:56 PM [facility] Creatinine 0.76 0.50 - 1.10 mg/dL LAB CHEMISTRY METHOD 02/05/2024 3:56 PM [facility] eGFR 89 >=60 mL/min/1. 73m2 LAB CHEMISTRY METHOD 02/05/2024 3:56 PM [facility] Comment:Calculation based on the Chronic Kidney Disease Epidemiology Collaboration (CKD-EPI) equation refit without adjustment for race. BUN/Creatinine Ratio 15.8 LAB CHEMISTRY METHOD 02/05/2024 3:56 PM [facility] Calcium 10.2 8.5 - 10.5 mg/dL LAB CHEMISTRY METHOD 02/05/2024 3:56 PM [facility] AST (SGOT) 25 10 - 42 unit/L LAB CHEMISTRY METHOD 02/05/2024 3:56 PM [facility] ALT (SGPT) 31 10 - 60 unit/L LAB CHEMISTRY METHOD 02/05/2024 3:56 PM [facility] Alkaline Phosphatase 112 42 - 121 unit/L LAB CHEMISTRY METHOD 02/05/2024 3:56 PM [facility] Total Protein 7.1 6.0 - 8.0 g/dL LAB CHEMISTRY METHOD 02/05/2024 3:56 PM [facility] Albumin 3.8 3.2 - 5.0 g/dL LAB CHEMISTRY METHOD 02/05/2024 3:56 PM [facility] Total Bilirubin 0.4 0.0 - 1.4 mg/dL LAB CHEMISTRY METHOD 02/05/2024 3:56 PM [facility] Blood Venous blood specimen / Unknown Venipuncture / Unknown 02/05/2024 3:05 PM EST 02/05/2024 3:30 PM EST us Bowen Juarez MD LAB BLOOD ORDERABLES Nazanin l Result [facility] [address] [place] [address], * DX MAMMO INCL CAD BI (11/11/2016 [...] category Low (<15%) Edmund SCHERER BI PROCEDURES Final Result from Last 3 Months or Most Recently Relevant to Health Maintenance Insurance [facility] MEDIC[facility] Member Subscriber Plan / Payer (Ef fective 2020-Present) Name:Pippa Camilo I Relation to Subscriber:Self Name:Pippa Camilo I Payer ID:[id number] Group ID:[id number] Type:Not on file Address: [address] [place] [address] Care Teams It Investment/Portfolio Manager Relationship Specialty Start Date End Date Name, MD Edmund [address] [place], [place] PCP - General Internal Medicine 02/07/08
--- OUTSIDE RECORDS SUMMARY | 2024-12-04 12:57 | XMS_ITS | Encounter Summary ---
Author Organization [employer] Address 75 [facility] 7 [place] [address] Care Team Providers Care Supervisor Seaming Name Role Phone Name, Edmund HERNANDEZ Primary Care Provider [phone] Reason for Visit * Reason Comments Med Refill Encounter Details Date Type Department Care Team ([facility] st Contact Info) Description 09/21/2024 Refill [facility] [address] [place], [place] [phone] Name, MD Edmund [address] [place] [address] Type 2 diabetes mellitus without complication, without long-term current use of insulin ([facility]) Social History Tobacco Use Types Packs/Day Years [...] as of this encounter Visit Diagnoses Diagnosis Type 2 diabetes mellitus without complication, without long-term current use of insulin (HCC) documented in this encounter Additional Health Concerns Assessment Noted Time PHQ-9 Depression Total Score: 0 07/18/19 25 10:30 AM EDT documented as of this encounter Care Teams Supervisor Seaming Relationship Specialty Start Date End Date Name, MD Edmund [address] [place] [address] PCP - General Family Medicine 04/04/15 documented as of this encounter
--- OUTSIDE RECORDS SUMMARY | 2024-12-04 12:58 | XMS_ITS | Encounter Summary ---
Author Organization [employer] Address 75 [facility] 7t [place] [address] Care Team Providers Care Revenue Specialist Name Role Phone Name, Edmund HERNANDEZ Primary Care Provider [phone] Reason for Visit * Reason Comments Med Refill Encounter Details Date Type Department Care Team ([facility] st Contact Info) Description 01/19/2023 Refill [facility] MED & PEDS [address] [place], [place] [phone] Name, MD Edmund [address] [place] [address] Social History Tobacco Use Types Packs/Day Years [...] t he electric, gas, oil or water [employer] threatened to shut off services in your [...] on filedocumented in this encounter Care Teams Revenue Specialist Relationship Specialty Start Date End Date Name, MD Edmund [address] [place] [address] PCP - General Family Medicine 04/04/15 documented as of this encounter
--- OUTSIDE RECORDS SUMMARY | 2024-12-04 12:58 | XMS_ITS | Encounter Summary ---
Author Organization [employer] Address [address] [place] [address] Care Team Providers Care Investment Advisor Name Role Phone Name, Edmund HERNANDEZ Primary Care Provider [phone] Encounter Details Date Type Department Care Team (Late st Contact Info) Description 07/30/2022 Abstract [facility] [address] [place], [place] [phone] Name, MD Edmund [address] [place] [address] Social History Tobacco Use Types Packs/Day Years [...] on filedocumented in this encounter Care Teams Investment Advisor Relationship Specialty Start Date End Date NameEdmund MD [address] [place] [address] PCP - General Family Medicine 04/04/15 documented as of this encounter
--- OUTSIDE RECORDS SUMMARY | 2024-12-04 12:58 | XMS_ITS | Encounter Summary ---
Author Organization [employer] Address 75 [facility] 7t [place] [address] Care Team Providers Care Senior Dentist Name Role Phone Name, Edmund HERNANDEZ Primary Care Provider [phone] Reason for Visit * Reason Comments Med Refill Encounter Details Date Type Department Care Team ([facility] st Contact Info) Description 05/06/[address] [facility] [address] [place], [place] [phone] Name, MD Edmund [address] [place] [address] Social History Tobacco Use Types Packs/Day Years [...] t he electric, gas, oil or water [employer] threatened to shut off services in your [...] filedocumented in this encounter Care Teams Senior Dentist Relationship Specialty Start Date End Date Name, MD Edmund [address] [place] [address] PCP - General Family Medicine 04/04/15 documented as of this encounter
--- OUTSIDE RECORDS SUMMARY | 2024-12-04 12:58 | XMS_ITS | Encounter Summary ---
Author Organization [employer] Address 75 [facility] 7 [place] [address] Care Team Providers Care Battery Recharger Name Role Phone Name, Edmund HERNANDEZ Primary Care Provider [phone] Reason for Visit * Reason Onset Date Comments Chart Prep 12/03/2024 Encounter Details Date Type Department Care Team ([facility] st Contact Info) Description 12/03/2024 Telephone [facility] [address] [place], [place] [phone] Name, MD Edmund [address] [place] [address] Chart Prep Social History Tobacco Use Types [...] encounter Miscellaneous Notes * Telephone Encounter - Meseret Phillips MA - 12/03/2024 9:27 AM EDT Chart Prep Labs: done Images: done Referrals: Evaluate and treat Physical Therapy ([facility]) ask patient if he went to his appointment? Vaccines due: Flu Screenings: pap smearAlcohol/Substance Use Screening Overdue care gaps: A1c, Glucose, SBIRT, and Tobacco documented in this encounter Plan of Treatment Not on file documented as of this encounter Visit Diagnoses Not on filedocumented in this encounter Additional Health Concerns Assessment Noted Time PHQ-9 Depression Total Score: 0 07/18/19 25 10:30 AM EDT documented as of this encounter Care Teams Battery Recharger Relationship Specialty Start Date End Date Name, MD Edmund [address] [place] [address] PCP - General Family Medicine 04/04/15 documented as of this encounter
--- OUTSIDE RECORDS SUMMARY | 2024-12-04 12:58 | XMS_ITS | Encounter Summary ---
Author Organization [employer] Address [address] [facility] 7t [place] [address] Care Team Providers Care Smoking Pipe Driller And Threader Name Role Phone Name, Edmund HERNANDEZ Primary Care Provider [phone] Reason for Visit * Reason Comments Med Refill Encounter Details Date Type Department Care Team ([facility] st Contact Info) Description 12/30/2022 Refill [facility] MED & PEDS [address] [place], [place] [phone] Name, MD Edmund [address] [place] [address] Social History Tobacco Use Types Packs/Day Years [...] t he electric, gas, oil or water [employer] threatened to shut off services in your [...] on filedocumented in this encounter Care Teams Smoking Pipe Driller And Threader Relationship Specialty Start Date End Date Name, MD Edmund [address] [place] [address] PCP - General Family Medicine 04/04/15 documented as of this encounter
--- OUTSIDE RECORDS SUMMARY | 2024-12-04 12:58 | XMS_ITS | Encounter Summary ---
Author Organization [employer] Address 75 [facility] 7 [place] [address] Care Team Providers Care Plastic Surgery Nurse Name Role Phone Name, Edmund HERNANDEZ Primary Care Provider [phone] Reason for Visit * Reason Comments Med Refill Encounter Details Date Type Department Care Team ([facility] st Contact Info) Description 01/27/2024 Refill [facility] MEDICINE [address] [place], [place] [phone] Beth Blanco, SALVATORE [address] [place] [address] Social History Tobacco Use Types Packs/Day Years [...] documented as of this encounter Care Teams Plastic Surgery Nurse Relationship Specialty Start Date End Date Name, MD Edmund [address] [place] [address] PCP - General Family Medicine 04/04/15 documented as of this encounter
--- OUTSIDE RECORDS SUMMARY | 2024-12-04 12:58 | XMS_ITS | Encounter Summary ---
Author Organization [employer] Address [address] [place] [address] 7 [place] [address] Care Team Providers Care Mill Operator Helper Name Role Phone Name, Edmund HERNANDEZ [...] on filedocumented in this encounter Care Teams Mill Operator Helper Relationship Specialty Start Date End Date Name, MD Edmund [address] [place] [address] PCP - General Family Medicine 04/04/15 documented as of this encounter
--- OUTSIDE RECORDS SUMMARY | 2024-12-04 12:58 | XMS_ITS | Encounter Summary ---
Author Organization [employer] Address [address] [facility] 7 [place] [address] Care Team Providers Care Saw Tailer Name Role Phone Name, Edmund HERNANDEZ Primary Care Provider [phone] Reason for Visit * Reason Comments Med Refill Encounter Details Date Type Department Care Team ([facility] st Contact Info) Description 09/23/2023 Refill [facility] MED[facility]INE [address] [place], [place] [phone] Name, MD Edmund [address] [place] [address] Mild intermittent asthma, unspecified whether complicated Social [...] documented as of this encounter Care Teams Saw Tailer Relationship Specialty Start Date End Date Name, MD Edmund [address] [place] [address] PCP - General Family Medicine 04/04/15 documented as of this encounter
--- OUTSIDE RECORDS SUMMARY | 2024-12-04 12:58 | XMS_ITS | Encounter Summary ---
Author Organization [employer] Address 75 [facility] 7t [place] [address] Care Team Providers Care Health Careers Instructor Name Role Phone Name, Edmund HERNANDEZ Primary Care Provider [phone] Reason for Visit * Reason Comments Med Refill Encounter Details Date Type Department Care Team ([facility] st Contact Info) Description 06/24/2023 Refill [facility] MEDICINE [address] [place], [place] [phone] Beth Blanco, SALVATORE [address] [place], [place] [phone] Social History Tobacco Use Types Packs/Day Years [...] t he electric, gas, oil or water [employer] threatened to shut off services in your [...] on filedocumented in this encounter Care Teams Health Careers Instructor Relationship Specialty Start Date End Date Name, MD Edmund [address] [place] [address] PCP - General Family Medicine 04/04/15 documented as of this encounter
--- OUTSIDE RECORDS SUMMARY | 2024-12-04 12:58 | XMS_ITS | Encounter Summary ---
Author Organization [employer] [facility] Address [address] [place] [address] [address] [address] Care Team Providers Care Concrete Pourer Name Role Phone Name, Edmund HERNANDEZ Primary Care Provider [phone] Reason for Visit * Reason Onset Date Comments Pre OP 06/30/2022 Encounter Details Date Type Department Care Team ([facility] st Contact Info) Description 06/30/2022 Telephone [facility] [place] [facility] MEDICINE [address] [place] [address] [phone] Name, MD Edmund [address] [place] [address] Pre OP Social History Tobacco Use Types [...] repair on 09/22/[address] Cobb at [facility]. Pt will be under general and popliteal [...] 2:33 PM EDT Tc from Bill from [facility] orthopedics returning call for PRE-OP appt , please see notes also stated surgeon will place order for EKG. Please contact at [phone] * Telephone Encounter - Julee Chung - 06/30/2022 1:46 PM EDT TC from Bill from [facility] requesting a PRE-OP Location: [address] Procedure: tendon repair Date of procedure: 09/22/22 @ 11:30am Labs: yes Ekg: yes Anesthesia Type : general and popliteal block Surgeon Name: donna tomlinson documented in this encounter Plan of Treatment Not on file documented as of this encounter Visit Diagnoses Not on filedocumented in this encounter Care Teams Concrete Pourer Relationship Specialty Start Date End Date Name, MD Edmund [address] [place] [address] PCP - General Family Medicine 04/04/15 documented as of this encounter
--- OUTSIDE RECORDS SUMMARY | 2024-12-04 12:58 | XMS_ITS | Encounter Summary ---
Author Organization [employer] Address [address] [place] [id number] Care Team Providers Care Lehr Operator Name Role Phone Name, Edmund HERNANDEZ Primary Care Provider [phone] Encounter Details Date Type Department Care Team (Late st Contact Info) Description 08/19/2022 Abstract [facility] [address] [place], [place] [phone] Name, MD Edmund [address] [place] [address] Social History Tobacco Use Types Packs/Day Years [...] on filedocumented in this encounter Care Teams Lehr Operator Relationship Specialty Start Date End Date NameEdmund MD [address] [place] [address] PCP - General Family Medicine 04/04/15 documented as of this encounter
--- OUTSIDE RECORDS SUMMARY | 2024-12-04 12:58 | XMS_ITS | Encounter Summary ---
Author Organization [employer] Address [address] [facility] 7t [place] [address] Care Team Providers Care Gluer And Slicer Hand Name Role Phone Name, Edmund HERNANDEZ Primary Care Provider [phone] Reason for Visit * Reason Comments Med Refill Encounter Details Date Type Department Care Team ([facility] st Contact Info) Description 02/10/2024 Refill [facility] MED & PEDS [address] [place], [place] [phone] Name, MD Edmund [address] [place] [address] Social History Tobacco Use Types Packs/Day Years [...] documented as of this encounter Care Teams Gluer And Slicer Hand Relationship Specialty Start Date End Date Name, MD Edmund [address] [place] [address] PCP - General Family Medicine 04/04/15 documented as of this encounter
--- OUTSIDE RECORDS SUMMARY | 2024-12-04 12:58 | XMS_ITS | Encounter Summary ---
Author Organization [employer] Address [address] [place] [address] [address] [place] [address] Care Team Providers Care Support Director Name Role Phone Name, Edmund HERNANDEZ Primary Care Provider [phone] Encounter Details Date Type Department Care Team ([facility] st Contact Info) Description 09/07/2022 Abstract [facility] [address] [place], [place] [phone] Name, MD Edmund [address] [place] [address] Social History Tobacco Use Types Packs/Day Years [...] on filedocumented in this encounter Care Teams Support Director Relationship Specialty Start Date End Date Name, MD Edmund [address] [place] [address] PCP - General Family Medicine 04/04/15 documented as of this encounter
--- OUTSIDE RECORDS SUMMARY | 2024-12-04 12:58 | XMS_ITS | Encounter Summary ---
Author Organization [employer] Address [address] [place] [address] [address] [address] Care Team Providers Care Surgical Endoscopist Name Role Phone Name, Edmund HERNANDEZ Primary Care Provider [phone] Encounter Details Date Type Department Care Team ([facility] st Contact Info) Description 09/02/[address] [facility] [address] [place], [place] [phone] Name, MD Edmund [address] [place] [address] Social History Tobacco Use Types Packs/Day Years [...] on filedocumented in this encounter Care Teams Surgical Endoscopist Relationship Specialty Start Date End Date Name, MD Edmund [address] [place] [address] PCP - General Family Medicine 04/04/15 documented as of this encounter
--- OUTSIDE RECORDS SUMMARY | 2024-12-04 12:58 | XMS_ITS | Encounter Summary ---
Author Organization [employer] Address [address] [facility] 7 [place] [address] Care Team Providers Care Entry Rep Name Role Phone Name, Edmund HERNANDEZ Primary Care Provider [phone] Reason for Visit * Reason Comments Med Refill Encounter Details Date Type Department Care Team ([facility] st Contact Info) Description 01/09/2024 Refill [facility] [address] [place], [place] [phone] Name, MD Edmund [address] [place] [address] Social History Tobacco Use Types Packs/Day Years [...] documented as of this encounter Care Teams Entry Rep Relationship Specialty Start Date End Date Name, MD Edmund [address] [place] [address] PCP - General Family Medicine 04/04/15 documented as of this encounter
--- OUTSIDE RECORDS SUMMARY | 2024-12-04 12:58 | XMS_ITS | Encounter Summary ---
Author Organization [employer] Address [address] [facility] 7t [place] [address] Care Team Providers Care Crystal Inspector Name Role Phone Name, Edmund HERNANDEZ Primary Care Provider [phone] Encounter Details Date Type Department Care Team (Late st Contact Info) Description 05/12/2022 Orders Only [facility] CHC MED & PEDS [address] [place] [address] Sarah Sherwood LPN Social History Tobacco Use [...] PM EDT) 06/11/2022 2:15 PM EDT Narrative [facility] - 06/11/2022 3:03 PM EDT [address] [address] Ultrasound Report Signed Patient: Pippa Camilo I MR#: [id number] : 1960 Acct:[id number] Age/Sex: 61 / F ADM Date: 06/11/22 Loc: HO.US Attending Dr: Uli Prakash MD Ordering Physician: ULI PRAKASH MD Date of Service: 06/11/22 Procedure(s): US venous duplex LE RT Accession Number(s): [id number] cc: ULI PRAKASH MD EXAMINATION: US VENOUS [...] in OV> 06/11/22 1500 DD/ 1415 TD/TT: 911 Telecommunicator: SK Procedure Note Donotuseinterpreter, Image - 06/11/2022 [facility] [address] [place] [address] Ultrasound Report Signed Patient: Pippa Camilo IMR#: [id number] : 1960Acct:[id number] Age/Sex: 61 / FADM Date: 06/11/22 Loc: HO.US Attending Dr: Uli Prakash MD Ordering Physician: ULI PRAKASH MD Date of Service: 06/11/22 Procedure(s): US venous duplex LE RT Accession Number(s): [id number] cc: ULI PRAKASH MD EXAMINATION: US VENOUS [...] in OV> 06/11/22 1500 DD/ 1415 TD/TT: 911 Telecommunicator: JOSE us [facility] External Provider CV VASC ULAR PROCEDURES Edited Result - Final [facility] [address] [place] [address] * XR Chest 2 Views (05/19/2022 5:03 PM EDT) Anatomical Region Laterality Modality Chest Radiographic Suzanne ging 05/19/2022 5:03 PM EDT Narrative 05/25/2022 1:42 PM EDT [address] [address] XRay Report Signed Patient: Pippa Camilo I MR#: [id number] : 1960 Acct:[id number] Age/Sex: 61 / F ADM Date: 05/19/22 Loc: HO.XRAY Attending Dr: Uli Prakash MD Ordering Physician: ULI PRAKASH MD Date of Service: 05/19/22 Procedure(s): XR chest 2V Accession Number(s): [id number] cc: ULI PRAKASH MD EXAMINATION: XR CHEST [...] Goldman MD in OV> 05/25/22 1340 DD/ 170 TD/TT: 911 Telecommunicator: SERGIO Procedure Note Donotuseinterpreter, Image - 05/25/2022 [place] [address] XRay Report Signed Patient: Pippa Camilo IMR#: [id number] : 1960Acct:[id number] Age/Sex: 61 / FADM Date: 05/19/22 Loc: HO.[place] Attending Dr: Uli Prakash MD Ordering Physician: ULI PRAKASH MD Date of Service: 05/19/22 Procedure(s): XR chest 2V Accession Number(s): [id number] cc: ULI PRAKASH MD EXAMINATION: XR CHEST [...] in OV> 05/25/22 1340 DD/ 1703 TD/TT: 911 Telecommunicator: SERGIO [facility] External Provider IMG XR PROCEDURES Edited Result - Final documented in this encounter Visit Diagnoses Not on filedocumented in this encounter Care Teams Crystal Inspector Relationship Specialty Start Date End Date Name, MD Edmund [address] [place] [address] PCP - General Family Medicine 04/04/15 documented as of this encounter
--- OUTSIDE RECORDS SUMMARY | 2024-12-04 12:58 | XMS_ITS | Clinical Summary ---
Author Organization [employer] Address [address] [facility] 7 [place] [address] Care Team Providers Care Porcelain Mixer Name Role Phone Name, Edmund HERNANDEZ Primary Care Provider [phone] Allergies Active Allergy Reactions Criticality Noted Date Comments Alprazolam Nausea And Vomiting,Other,Swell ing 03/06/2008 Patient describes that she had a withdrawal from this medication causing extreme anxiety and dificulty breathin. She denies an actual allergy to this medicine Aspirin Nausea And Vomiting,Swelling High 03/06/2008 Other reaction(s): OTHER LegacyRecord#[id number] Throat closing Green Dye High 11/15/2018 IV DYE Iodinated Contrast Media Nausea And Vomiting,Swelling 03/06/2008 Other reaction(s): arm swelling Other reaction(s): OTHER Throat closing Iodine High 04/04/2015 LegacyRecord#[id number] Tuberculin Ppd High 11/15/2018 Tuberculin Purified Protein Derivative 08/20/2022 Other reaction(s): ?reaction Tuberculin, Ppd 01/09/2013 LegacyRecord#[id number] Medications fluticasone (Flonase) 50 MCG/ACT nasal sprayIndication s:Allergic rhinitis, unspecified seasonality, unspecified trigger Administer 2 sprays into each nostril in the morning. 48 g 022 Active montelukast (Singulair) 10 MG tablet Take 1 tablet by mouth at bed time. 020 Active pantoprazole (ProtoNix) 40 MG EC tablet 022 Active Spacer/Aero-Hol ding Chambers (OptiChamber Ophelia) misc [...] 024 Active glucose blood (OneTouch Verio) test stripIndication s:Type 2 diabetes mellitus without complication, without long-term current use of insulin (HCC) USE TO TEST BLOOD SUGAR ONCE A DAY 100 strip 11 024 Active hydrocortisone 2.5 % ointmentIndicat ions:Fissure in skin Apply topically 2 times daily. 20 g 024 Active OneTouch Delica Lancets 33G misc USE TO TEST BLOOD SUGAR EVERY DAY 100 each 5 024 Active loratadine (Claritin) 10 MG tabletIndicatio ns:Mild intermittent asthma, unspecified whether complicated Take 1 tablet (10 mg) by mouth Once per day. 90 tablet 1 025 Active levothyroxine (Synthroid, Levoxyl) 88 MCG tablet JAMES 1 TABLETA POR LA BOCA EN LA MANANA ANTES DE DESAYUNO 90 tablet 3 07/10/19 25 11:29 AM EDT 025 Active cetirizine (ZyrTEC) 10 MG tablet Take 1 tablet (10 mg) by mouth if needed each day for allergies. 90 tablet 1 09/06/19 25 9:00 AM EDT 025 2024 Active Advair HFA 230-21 MCG/ACT inhaler 025 Active lamoTRIgine (LaMICtal) 25 MG tablet 025 Active Trulicity 1.5 MG/0.5ML solution auto-injectorIn dications:Type 2 diabetes mellitus without complication, without long-term current use of insulin (HCC) INYECTAR 1 PLUMA ( 1.5MG) SUBCUTANEAMENTE CLYDE VEZ AL SEMANA REBECA SE INDICA 2 mL 10 10/13/19 25 1:14 PM EDT 025 Active Ventolin HFA 108 (90 Base) MCG/ACT inhalerIndicati ons:Mild intermittent asthma, unspecified whether complicated USAR 2 INHALACIONS POR LA BOCA CADA 4 O 6 HORAS REBECA SEA NECESARIO 18 g 3 11/05/19 25 11:06 AM EDT 025 Active traMADol (Ultram) 50 MG tabletIndicatio ns:Status post left foot surgery,Left foot pain Take 1 tablet (50 mg) by mouth if needed in the morning and at bedtime for severe pain for up to 10 days. 20 tablet 025 2024 Active amLODIPine (Norvasc) 5 MG tabletIndicatio ns:Type 2 diabetes mellitus without complication, without long-term current use of insulin ([facility]) Take 1 tablet (5 mg) by mouth Once per day. 90 tablet 3 025 2025 Active atorvastatin (Lipitor) 20 MG tabletIndicatio ns:Type 2 diabetes mellitus without complication, without long-term current use of insulin (HCC) Take 1 tablet (20 mg) by mouth Once per day. 90 tablet 2 025 2025 Active metFORMIN (Glucophage) 500 MG tabletIndicatio ns:Type 2 diabetes mellitus without complication, without long-term current use of insulin (HCC) TAKE 1 TABLET BY ORAL ROUTE 2 TIMES EVERY DAY WITH MORNING AND EVENING MEALS 180 tablet 2 Active amLODIPine (Norvasc) 5 MG tablet 023 2024 Discontinued(R eorder (will not trigger notification to Pharmacy)) metFORMIN (Glucophage) 500 MG tabletIndicatio ns:Type 2 diabetes mellitus without complication, without long-term current use of insulin (HCC) TAKE 1 TABLET BY ORAL ROUTE 2 TIMES EVERY DAY WITH MORNING AND EVENING MEALS 60 tablet 5 025 2024 Discontinued(R eorder (will not trigger notification to Pharmacy)) atorvastatin (Lipitor) 20 MG tabletIndicatio ns:Type 2 diabetes mellitus without complication, without long-term current use of insulin (HCC) Take 1 tablet (20 mg) by mouth Once per day. 90 tablet 2 025 2024 Discontinued(R eorder (will not trigger notification to Pharmacy)) Active Problems Problem Noted Date Diagnosed Date [...] dietary intake Allergies 07/29/2023 Assessment & Plan (08/30/2024 8:17 AM EDT): - Start cetirizine 10mg nightly PRN Assessment & Plan (07/30/2023 4:16 PM EDT): [...] aware that if helpful [facility] Healthcare maintenance 06/05/2023 Assessment & Plan (08/30/2024 8:27 AM EDT): Mammogram: 07/10/24 BIRADS 2 Colonoscopy: 05/06/2021, polypectomy. Request path. Pap smear: following with [facility] CUST[facility] CARE ASSISTANT Hyperlipemia 08/20/2022 Assessment & Plan (06/28/2023 11:57 [...] Constipation 12/08/2018 Overview (08/20/2022): Overview Note: Constipation #[id number]# EXT_ID: [id number] Breast cancer ([facility]/HCC) 11/15/2018 Overview (08/30/2024): Following with [facility] Heme/Onc - Dr. 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 Overview (08/20/2022): Overview Note: Monoarthritis, not elsewhere classified, knee #[id number]# EXT_ID: [id number] Assessment & Plan (2023 4:01 PM EDT): Trial tramadol, Medication Indications, side effects and duration of therapy reviewed, pt aware to call clinic for worsening symptoms or failure to resolve Dry eye syndrome 10/04/2018 Overview (08/20/2022): Overview Note: Dry eye syndrome #[id number]# EXT_ID: [id number] Pain in knee 10/04/2018 Overview (08/20/2022): Overview Note: Pain in knee #[id number]# EXT_ID: [id number] Intraductal carcinoma in situ of breast 08/04/19 19 Overview (08/20/2022): Overview Note: Intraductal carcinoma in situ of breast #[id number]# EXT_ID: [id number] Benign mammary dysplasia 08/01/2018 Overview (08/20/2022): Overview Note: Other benign mammary dysplasias #9978612# EXT_ID: [id number] Mild persistent asthma 07/27/2018 Overview (08/20/2022): Overview Note: Mild intermittent asthma #[id number]# EXT_ID: [id number] Assessment & Plan (06/13/2023 2:10 PM EDT): Stable mild intermittent, seasonal allergies are triggers, Anxiety disorder 07/27/2018 Overview (08/20/2022): The patient follows with Dr Taylor Overview Note: Other anxiety disorders #[id number]# EXT_ID: [id number] Assessment & Plan (2023 3:55 PM EDT): Reports stable and well managed, continue current regimen Hypertension 07/27/2018 Overview (06/13/2023): At goal today, continue amlodipine and metoprolol, consider josefa or arb given concurrent dm, defer to pcp Assessment & Plan (08/30/2024 8:19 AM EDT): Elevated in office, reports has not yet taken BP meds Cont current regimen: amlodipine 5mg daily, metoprolol tartrate 50mg BID Encouraged to check BP readings at least 2x/week with RN at [facility] - and f/up if continue to be elevated. May consider addition of ARB if cont to be elevated given concurrent hx of T2DM Lifestyle interventions encouraged including routine physical activity and low- salt diet Joint pain 11/08/2017 Diabetes mellitus, type 2 05/21/2016 Assessment & Plan (08/30/2024 8:21 AM EDT): Continues with metformin 500mg BID and Trulicity 1.5mg subcutaneous weekly Statin: yes Lab Results Component Value Date HGBA1C 7.4 (A) 07/17/2024 Allergic rhinitis 05/21/2016 Assessment & Plan (2023 [...] Overview (08/20/2022): Overview Note: Carpal tunnel syndrome #[id number]# EXT_ID: [id number] Atypical lobular hyperplasia (ALH) of breast Overview (08/20/2022): Patient followed and [facility] and with Dr Avina. She was on Tamoxigen for 5 years Umbilical hernia 07/16/2011 Breast microcalcification, mammographic 01/09/20 11 Overview (08/20/2022): Biopsied in [place] 07-07-2009, fibrocystic disease. Acquired hypothyroidism 01/05/2011 Assessment & Plan (08/30/2024 8:22 AM EDT): Lab Results Component Value Date TSH 2.19 04/19/2024 - Cont current therapy, well controlled Assessment & Plan (06/28/2023 11:56 AM EDT): [...] 12/08/2018 12/06/2023 Overview (08/20/2022): Overview Note: Cough #[id number]# EXT_ID: [id number] Major depressive disorder, recurrent 10/26/2018 06/29/2023 Overview (04/06/2022): Overview Note: Major depressive disorder, recurrent #[id number]# EXT_ID: [id number] Impaired fasting glucose 01/28/2011 Lung mass 01/08/2011 2023 Overview (08/20/2022): F/u recommended somewhere between 01/09 and 07/10 Abdominal pain 03/06/2008 12/06/2023 Overview (08/20/2022): Overview Note: Dorsalgia #[id number]# EXT_ID: [id number] Cervical spine disc herniation Overview Note: Other abdominal pain #[id number]# EXT_ID: [id number] Asthma 03/06/2008 12/06/2023 Assessment & Plan (07/30/2023 4:20 PM EDT): Recent exacerbation, no audible wheeze today, continue inhalers Assessment & Plan (2023 4:09 PM EDT): Continue current inhalers, seasonal allergies are trigger, monitor for increased albuterol usage Encounters Date Type Department Care Team Description 12/04/2024 10:00 AM EDT Office Visit [facility] [address] [place] [phone] Edmund Valentino MD Type 2 diabetes mellitus without complication, without long-term current use of insulin ([facility]) (Primary Dx); Encounter for immunization; Left foot pain; Status post left foot surgery; Acquired hypothyroidism 12/04/2024 Travel 12/03/2024 Telephone [facility] [address] [place] [address] Edmund Valentino MD Chart Prep 10/30/2024 Refill [facility] [address] [place] [address] Edmund Valentino MD Mild intermittent asthma, unspecified whether complicated 10/11/2024 Refill [facility] [address] [place] [address] Edmund Valentino MD Type 2 diabetes mellitus without complication, without long-term current use of insulin ([facility]) 09/21/2024 Refill [facility] [address] [place] [address] Edmund Valentino MD Type 2 diabetes mellitus without complication, without long-term current use of insulin ([facility]) 09/03/2024 Results Follow-Up [facility] [address] [place], [place] [phone] Анна Rapp, MIRTHA POCT Glucose, Hepatitis C Viral RNA, Quantitative, Real-Time PCR, RPR (Monitor) with Reflex to Titer, Additional followed-up results: 2 from Last 3 Months Immunizations Immunization Administration Dates Next Due Influenza Injectable Quadriv alant Preservative Free IIV4 MDCK 12/01/2019 Influenza injectable quadriv alent IIV4 with preservative 12/02/2022,12/18/2015,11/30/2013,11/06 Influenza injectable quadriv alent preservative free 11/10/2021,11/13/2020,12/08/2018,12/10 Influenza, IIV3, injectable 12/28/2013,0 11/06/2012,12/08/2011,01/05 Influenza, Injectable, MDCK, preservative free 11/02/2023 Influenza, seasonal, injecta ble, preservative free 12/04/2024,12/08/2016,11/02/2016 Pfizer Covid-19 Vaccine 12+ 12/11/2020,,04/06/2020 Pneumococcal Conjugate [...] EDT Inhaled Oxygen Concentration - - Weight 67.9 kg (149 lb 9.6 oz) 08/29/2024 8:48 A M EDT Height 152.4 cm (5') 12/04/2024 10:10 AM EDT Body Mass Index 29.22 08/29/2024 8:48 AM EDT Plan of Treatment Health Maintenance Due Date Last Done Comments CT Colonography 1960 FIT DNA/Cologuard 1962 FIT 1962 FOBT 1962 Sigmoidoscopy 1962 Alcohol/Substance Use Screening 1974 Pap Smear 06/26/1983 Cervical Cancer Screening 1992 HPV/Cotest 1992 Dental Oral Exam 02/26/2021 08/26/2020, 04/21/2016 Dental Prophylaxis 02/26/2021 08/26/2020, 04/21/2016 Dental X-Ray: Bitewings 08/27/2021 08/26/2020, 04/21 RSV Patients and Patients Aged 60 years or older (1 - Risk 60-74 years 1-dose series) 2022 Dental X-Ray: Full Mouth 08/28/2023 08/26/2020, 04/01 Diabetes: Foot Exam 12/05/2024 12/06/2023, 12/06/2023, 12/06/2023, Additional history exists Eye Exam 03/29/2025 03/29/2023 Diabetes: Hemoglobin A1C 06/04/2025 025, 07/17/2024, 12/06/2023, Additional history exists Mammogram 07/10/2025 07/10/2024, 05/0 08/2023, 2022, Additional history exists Depression Screening 07/17/2025 07/17/2024, 07/18/19 25 Diabetes: Urine Protein Screening 07/17/2025 07/17/2024, 12/06/2023, 05/19/2022, Additional history exists Disability Screening 07/17/2025 07/17/2024 Lipid Panel 07/17/2025 07/17/2024, 04/0 10/2023, 04/21/2020 SDOH Screening 07/17/2025 07/17/2024 Tobacco Screening 12/04/2025 12/04/2024 Colonoscopy 05/06/2026 05/06/2021 Colorectal Cancer Screening 05/06/2026 DTaP/Tdap/Td Vaccines (3 - Td or Tdap) 12/05/2033 12/06/2023, 03/15/2011 Zoster Vaccines Completed 01/30/2020, 12/01/2019 Pneumococcal Vaccine: 50+ Years Completed 07/29/2023, 11/13/2020, 07/24/2014 COVID-19 Vaccine Completed 11/02/2023, 04/2022, 06/16/2021, Additional history exists HIV Screening Completed 08/29/2024 Hepatitis C Screening Completed 08/29/2024 Influenza Vaccine Completed 12/04/2024, , 12/02/2022, Additional history exists HIB Vaccines Aged Out [...] without long-term current use of insulin (HCC) CT SINUS WO CONTRAST Routine 09/07/2024 4:07 PM EDT HEPATITIS C VIRAL RNA, QUANTITATIVE, REAL-TIME PCR Routine 08/29/2024 9:58 AM EDT Healthcare maintenance HIV 1/2 ANTIGEN/ANTIBODY, FOURTH GENERATION W/RFL Routine 08/29/2024 9:58 AM EDT Healthcare maintenance ALBUMIN, RANDOM URINE W/CREATININE Routine 07/17/2024 11:00 AM EDT Type 2 diabetes mellitus without complication, without long-term current use of insulin (CMS/HCC) LIPID PANEL, STANDARD Routine 07/17/2024 11:00 AM EDT Type 2 diabetes mellitus without complication, without long-term current use of insulin (CMS/HCC) BI MAMMOGRAM SCREENING TOMOSYNTHESIS BILATERAL Routine 07/10/2024 2:30 PM EDT DIABETES EYE EXAM Routine 03/29/2023 COLONOSCOPY Routine 05/06/2021 PROPHYLAXIS - ADULT Routine 08/26/2020 1 2:00 AM EDT INTRAORAL - COMPLETE SERIES OF RADIOGRAPHIC IMAGES Routine 08/26/2020 12:00 AM EDT PERIODIC ORAL EVALUATION - ESTABLISHED PATIENT Routine 08/26/2020 12:00 AM EDT from Last 3 Months or Most Recently Relevant to Health Maintenance Results * (ABNORMAL) POCT Hgb A1c (12/04/2024 10:12 AM EDT) Hemoglobin A1C 6.1(A) 4.0 - 5.7 % QC Media Lot # [id number] Lot# Expiration Date 41,627 Blood 12/04/2024 10:1 2 AM EDT us Edmund Valentino MD POINT OF CARE TEST ENTER/EDIT OR DERABLES Final Result * POCT Glucose (12/04/2024 10:11 AM EDT) Glucose Blood, POC 98 60 - 200 mg/dL QC Media Lot # [id number] Lot# Expiration Date 31,126 Blood Capillary blood specimen / Unknown 12/04/2024 10:11 AM EDT us Edmund Valentino MD POINT OF CARE TEST ENTER/EDIT OR DERABLES Final Result * CT Sinus w/o Contrast (09/07/2024 4:07 PM EDT) Anatomical Region Laterality Modality Computed Tomogra phy 09/07/2024 4:07 PM EDT Narrative 09/07/2024 4:53 PM EDT [address] [address] [address] Scan Report Signed Patient: Pippa Camilo I MR#: [id number] : 1960 Acct:[id number] Age/Sex: 64 / F ADM Date: 09/07/24 Loc: HO.CT Attending Dr: Abran Thomas Ordering Physician: Abran Thomas Date of Service: 09/07/24 Procedure(s): CT sinus wo IV con Accession Number(s): [id number] cc: Abran Thomas; Name,Edmund HERNANDEZ Report Number: [id number]: Total DLP = 82.00 mGy-cm EXAMINATION: CT SINUS WITHOUT CONTRAST CLINICAL INFORMATION: Polyp, Nasal Cavity COMPARISON: None available. TECHNIQUE: Axial CT was performed through the mid skull through the base of dens. Coronal and sagittal reformatted images were generated from the original axial data set. ALARA: The examination used one or more of the following radiation dose reduction techniques: Automated exposure control, iterative reconstruction, and/or adjustment of mA and/or KV. DLP: 82 mGY*cm FINDINGS: Paranasal sinuses are clear. Bony nasal septum deviates left 3 mm. Turbinates are symmetrical. Patent infundibula are noted bilaterally. There is moderate to severe asymmetric narrowing of the right temporal mandibular joint and subchondral cystic change in the mandibular head. The left temporomandibular joint demonstrate mild flattening of the mandibular condyle and marginal osteophyte formation. The joint space demonstrates moderate narrowing. Orbits are grossly normal. CT/CT sinus wo IV con IMPRESSION: Unremarkable paranasal sinuses. Minimal leftward bowing of the bony nasal septum. 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 Electronically signed by: Denys Macias MD 09/07/2024 04:51 PM EDT Dictated By: Denys Macias MD Signed By: <Electronically signed by Denys Macias MD in OV> 09/07/24 1651 DD/ 1607 TD/TT: 09/07/24 1637 Engineering Instructor: Procedure Note Donotuseinterpreter, Image - 09/07/[address] [address] [address] Scan Report Signed Patient: Pippa Camilo IMR#: [id number] : 1960Acct:[id number] Age/Sex: 64 / FADM Date: 09/07/24 Loc: HO.CT Attending Dr: Abran Thomas Ordering Physician: Abran Thomas Date of Service: 09/07/24 Procedure(s): CT sinus wo IV con Accession Number(s): [id number] cc: Abran Thomas; Name,Edmund HERNANDEZ Report Number: [id number]: Total DLP = 82.00 mGy-cm EXAMINATION: CT SINUS WITHOUT CONTRAST CLINICAL INFORMATION: Polyp, Nasal Cavity COMPARISON: None available. TECHNIQUE: Axial CT was performed through the mid skull through the base of dens. Coronal and sagittal reformatted images were generated from the original axial data set. ALARA: The examination used one or more of the following radiation dose reduction techniques: Automated exposure control, iterative reconstruction, and/or adjustment of mA and/or KV. DLP: 82 mGY*cm FINDINGS: Paranasal sinuses are clear. Bony nasal septum deviates left 3 mm. Turbinates are symmetrical. Patent infundibula are noted bilaterally. There is moderate to severe asymmetric narrowing of the right temporal mandibular joint and subchondral cystic change in the mandibular head. The left temporomandibular joint demonstrate mild flattening of the mandibular condyle and marginal osteophyte formation. The joint space demonstrates moderate narrowing. Orbits are grossly normal. CT/CT sinus wo IV con IMPRESSION: Unremarkable paranasal sinuses. Minimal leftward bowing of the bony nasal septum. 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 Electronically signed by: Denys Macias MD 09/07/2024 04:51 PM EDT Dictated By: Denys Mcaias MD Signed By: <Electronically signed by Denys Macias MD in OV> 09/07/24 1651 DD/ 1607 TD/TT: 09/07/24 1637 Engineering Instructor: [facility] External Provider IMG CT PROCEDURES Final Result * Hepatitis C Viral RNA, Quantitative, Real-Time PCR (08/29/2024 9:58 AM EDT) Hepatitis C Viral Load <15 NOT DETECTED NOT DETECTED IU/mL [facility] HCV Log PCR <1.18 NOT DETECTED NOT DETECTED Log IU/mL [facility] Comment:For additional infor micheal, please refer [email or web address]/faq/TIR51l9(This link is being provided for informational/educational purposes only.)THIS TEST WAS PERFORMED AT:[address] [place] [phone] FRANKLIN MD Blood 08/29/2024 9:58 AM EDT 08/29/2024 11:03 AM EDT us Анна Rapp [facility] BLOOD ORDERABLES Final Res ult [facility] [address] [place] [phone] [phone] * HIV-1/2 Antigen and Antibodies, Fourth Generation, with Reflexes (08/29/2024 9:58 AM EDT) Pathologist [facility] HIV AB/AG Nonreactive Nonreactive [facility] Comment:HIV-1 p24 Ag and/or HIV-1/HIV-2 Ab not detected.A test result that is nonreactive does not exclude thepossibility of exposure to or infection with HIV-1 and/orHIV-2. Nonreactive results in this assay for individualswith prior exposure to HIV-1 and/or HIV-2 may be due toantigen and antibody levels that are below the limit ofdetection of this assay.[employer] HIV Ag/Ab Combo assay result andsupplemental assay results should be interpreted inconjunction with the patient's clinical presentation,history and other laboratory results. If the results areinconsistent with clinical evidence, additional testing issuggested to confirm the result. Blood Venous blood specimen / Unknown 08/29/2024 9:58 AM EDT 08/29/2024 11:03 AM EDT us Анна Rapp [employer]AR GRINDER OPERATOR HELPER LAB BLOOD ORDERABLES Final Res ult Performing Organization Address [facility] Co de Phone Number [facility] [address] [place] [phone] * Albumin, Random Urine W/Creatinine (07/17/2024 11:00 AM EDT) Creatinine, Urine 38.89 mg/dL [facility] Microalbumin Urine 5.0 mg/L [facility] Microalbum Creatinine Ratio Ur 12.8 <30 ug/mg cr [facility] Comment:Albumin/Creatinine R atio Reference Ranges: Normal: < 30 ug/mg creatinine Microalbuminuria: 30 - 300 ug/mg creatinineClinical Albuminuria: > 300 ug/mg creatinine Urine (Urine, Random) 07/17/2024 11:00 AM EDT 07/17/2024 11:42 AM EDT Edmund Valentino MD LAB URINE ORDERABLES Final Resul t Performing Organization Address [facility] Co de Phone Number [facility] [address] [place] [phone] * (ABNORMAL) Lipid Panel, Standard (07/17/2024 11:00 AM EDT) Triglycerides 127 <150 mg/dL [facility] Comment:Desirable Triglyceri de: less than 150 mg/dLBorderline High Triglyceride 150-199 mg/dLHigh Triglyceride: 200-499 mg/dLVery High Triglyceride: greater than or equal to 5OO mg/dL Cholesterol 265(H) <200 mg/dL [facility] Comment:Desirable Cholestero l: less than 200 mg/dLBorderline High Cholesterol: 200-239 mg/dLHigh Cholesterol: greater than 239 mg/dL LDL Cholesterol Calculated 175(H) <100 mg/dL [facility] Comment:Desirable LDL: less than 100 mg/dLNear Optimal/Above Optimal LDL: 110- 129 mg/dLBorderline High LDL: 130-159 mg/dLHigh LDL: 160-189 mg/dLVery High LDL: greater than or equal to 190 mg/dL HDL Cholesterol 65 >40 mg/dL [facility] Comment:Desirable HDL: great er than 40 mg/dL Note: This HDL assay may give artificially low results in patients with liver disease. Blood Venous blood specimen / Unknown 07/17/2024 11:00 AM EDT 07/17/2024 11:25 AM EDT Edmund Valentino MD LAB BLOOD ORDERABLES Final Resul t [facility] [address] [place] [phone] * BI Mammogram Screening Tomosynthesis Bilateral (07/10/2024 2:30 PM EDT) Anatomical Region Laterality Modality Breast Bilateral Mammography 07/10/2024 2:30 PM EDT Narrative 07/16/2024 5:58 PM EDT [address] [place] [address] Mammography Report Signed Patient: Pippa Camilo I MR#: [id number] : 1960 Acct:[id number] Age/Sex: 64 / F ADM Date: 07/10/24 Loc: HO.MAMMO Attending Dr: Edmund Valentino MD Ordering Physician: Edmund Valentino MD Results: 2Benign Fi ndings Date of Service: 07/10/24 Follow Up: 1 Year From [facility] Mammogram Procedure(s): MM tomosynthesis screening BI Accession Number(s): [id number] cc: Edmund Valentino MD EXAMINATION: MM SCREENING [...] by Alicia Riley DO in OV> 07/16/24 1756 DD/ 1430 TD/TT: 07/10/24 1455 Engineering Instructor: Procedure Note Donotuseinterpreter, Image - 07/16/2024 [facility] [address] [place], [place] [id number] Mammography Report Signed Patient: Pippa Caimlo IMR#: [id number] : 1960Acct:[id number] Age/Sex: 64 / FADM Date: 07/10/24 Loc: [facility] Attending Dr: Edmund Valentino MD Ordering Physician: Edmund Valentino MDResults: 2Benign Fi ndings Date of Service: 07/10/24Follow Up: 1 Year From [facility] Mammogram Procedure(s): MM tomosynthesis screening BI Accession Number(s): [id number] cc: Edmund Valentino MD EXAMINATION: MM SCREENING [...] their next mammogram. Electronically signed by: Alicia Riely DO 07/16/2024 05:54 PM EDT RP Dictated By: Alicia Riley DO Signed By: <Electronically signed by Alicia Riley DO in OV> 07/16/24 1754 DD/ 1430 TD/TT: 07/10/24 1455 Engineering Instructor: us Shaffer Name IMG BI PROCEDURES Final Result * Diabetes Eye Exam (03/29/2023) Eye Exam Normal Normal 03/29/2023 us Edmund Valentino MD HEALTH MAINTENANCE Final Result * Colonoscopy (05/06/2021) Colonoscopy Normal Normal Narrative Rita Jimenez - 05/06/2021 Recommended 5 year follow up [facility] Provider HEALTH MAINTENANCE Final Result from Last 3 Months or Most Recently Relevant to Health Maintenance Insurance [facility] < 65 [place] [id number] Care Teams Porcelain Mixer Relationship Specialty Start Date End Date Name, MD Edmund [address] [place] [id number] PCP - General Family Medicine 04/04/15
--- OUTSIDE RECORDS SUMMARY | 2024-12-04 12:58 | XMS_ITS | Encounter Summary ---
Author Organization [employer] Address [address] [facility] 7 [place] [address] Care Team Providers Care Shop Hand Name Role Phone Name, Edmund HERNANDEZ Primary Care Provider [phone] Reason for Visit * Reason Onset Date Comments Appointment Request 05/16/2023 Encounter Details Date Type Department Care Team ([facility] st Contact Info) Description 05/16/2023 Telephone [facility] MEDICINE [address] [place], [place] [phone] Name, MD Edmund [address] [place] [address] Appointment Request Social History Tobacco Use Types [...] to cancel and reschedule appt for 05/15 display 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
--- OUTSIDE RECORDS SUMMARY | 2024-12-04 12:58 | XMS_ITS | Encounter Summary ---
Author Organization [employer] Address [address] [facility] 7 [place] [address] Care Team Providers Care Project Controller Name Role Phone Name, Edmund HERNANEDZ Primary Care Provider [phone] Reason for Visit * Reason Comments Med Refill Encounter Details Date Type Department Care Team ([facility] st Contact Info) Description 01/20/2024 Refill [facility] MEDICINE [address] [place], [place] [phone] Name, MD Edmund [address] [place] [address] Social History Tobacco Use Types Packs/Day Years [...] documented as of this encounter Care Teams Project Controller Relationship Specialty Start Date End Date Name, MD Edmund [address] [place] [id number] PCP - General Family Medicine 04/04/15 documented as of this encounter
--- OUTSIDE RECORDS SUMMARY | 2024-12-04 12:58 | XMS_ITS | Encounter Summary ---
Author Organization [employer] Address [address] [facility] 7 [place] [address] Care Team Providers Care Digital Program Manager Name Role Phone Name, Edmund HERNANDEZ Primary Care Provider [phone] Reason for Visit * Reason Comments Med Refill Encounter Details Date Type Department Care Team ([facility] st Contact Info) Description 10/04/2023 Refill [facility] MEDICINE [address] [place], [place] [phone] Name, MD Edmund [address] [place] [address] Mild intermittent asthma, unspecified whether complicated Social [...] documented as of this encounter Care Teams Digital Program Manager Relationship Specialty Start Date End Date Name, MD Edmund [address] [place] [address] PCP - General Family Medicine 04/04/15 documented as of this encounter
--- OUTSIDE RECORDS SUMMARY | 2024-12-04 12:58 | XMS_ITS | Encounter Summary ---
Author Organization [employer] Address [address] [facility] 7 [place] [address] Care Team Providers Care Scheme Technician Name Role Phone Name, Edmund HERNANDEZ Primary Care Provider [phone] Reason for Visit * Reason Comments Med Refill Encounter Details Date Type Department Care Team ([facility] st Contact Info) Description 01/06/2024 Refill [facility] MEDICINE [address] [place], [place] [phone] Beth Blanco, [place] [address] [place] [address] Social History Tobacco Use Types Packs/Day Years [...] documented as of this encounter Care Teams Scheme Technician Relationship Specialty Start Date End Date Name, MD Edmund [address] [place] [phone] PCP - General Family Medicine 04/04/15 documented as of this encounter
== END 2024-12-04 10:41 | disposition home or self-care (01) ==
LOC: HO.HHCL 10:40
PROVIDERS: PCP Internal Medicine Geriatric Medicine; Visit Provider Internal Medicine Geriatric Medicine
DX: E03.9 Hypothyroidism, unspecified (principal)
CPT/HCPCS: 36415; 84443